=== PATIENT | female | born 1955 | race Caucasian/White ===

== ENCOUNTER 2023-08-20 11:08 | Outpatient (AMB) | payer OTHER, SELFPAY ==
[2023-08-20 11:15] VITALS: BP 165/74; PULSE 54; RESP 16; O2SAT 99; BMI 24.5
--- NOTE | 2023-08-20 11:15 | A.OFFPC_ITS ---
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 Patient reports she has not had a provider in over 1 year in [place], [place]. Patient reports she has seen an opthomologist recently and she was informed topiramate was contributing to her cataracts. Patient reports she was informed to switch to diclofenac. Allergies No Known Allergies Allergy (Verified 08/20/23 12:41) Medication List - Last Reconciled 08/20/23 by Keyona Knowles, CARDIOTHORACIC ANESTHESIA TECHNICIAN- albuterol sulfate 90 mcg/actuation inhalation budesonide-formoterol 160-4.5 mcg/actuation (Symbicort) inhalation diclofenac sodium 1% 2 grams topical QID PRN duloxetine 60 mg PO DAILY ipratropium-albuterol 0.5 mg-3 mg(2.5 mg base)/3 mL mL inhalation lisinopril 10 mg PO DAILY metoprolol succinate ER 25 mg PO DAILY montelukast 10 mg PO DAILY naproxen 500 mg PO BID topiramate 100 mg PO BID Tobacco use date assessed: 08/20/23 Fall risk assessment: No Falls in past year Last assessed Fall Risk: 08/20/23 Dental Screening Dental Screen Date: 08/20/23 Did you have a dental visit in the last 12 months?: No Did you have a dental problem in the last 6 months where you did not have access to dental care?: No Was dental information given to patient?: Yes HPI HPI Comments History of Present Illness Details 68 y/o F with HTN, Cataracts, chronic ba ck pain, ISSAC, current smoker, COPD Health Maintenance: Colon - declined. States she has Cologaurd at home DEXA - declined Pap - declined Mammo - declined Eye exam 08/17/2023 Dr. Chavez Specialists: Optho Here today for CPE No medical records Was taking Topamax for chronic pain. Saw Optho yesterday who advised her to DC d/t cataracts. Wants pain meds. Eye exam 08/17/2023 Dr. Chavez [facility] Medical History (Updated 08/20/23 @ 12:56 by Keyona Knowles, CARDIOTHORACIC ANESTHESIA TECHNICIAN-) ISSAC (generalized anxiety disorder) HTN (hypertension) Chronic back pain Renal stones Social History (Updated 08/20/23 @ 12:06 by Jacki Christina [facility]) Household Members: Other Household Members Other:: Roommate x1 Housing: Other Housing Other:: Roommate Alcohol intake: former Patient Tobacco Use Status: Current everyday Tobacco user Tobacco use type: Cigarette Cigarettes Per Day: 6 Years Smoked: 40 e-Cigarette/Vaping Use: Currently Using Substance Use Type: Marijuana service: No Current occupational status: disabled Current occupational exposures/hazards: No Sexual orientation: Straight/Heterosexual Gender identity: Female Cognitive needs: No Hearing needs: No Vision needs: Yes Questionnaire PHQ-9 Over the last 2 weeks, how often have you been bothered by any of the following problems? 1. Little interest or pleasure in doing things: more than half the days 2. Feeling down, depressed, or hopeless: more than half the days 3. Trouble falling or staying asleep, or sleeping too much: more than half the days 4. Feeling tired or having little energy: more than half the days 5. Poor appetite or overeating: not at all 6. Feeling bad about yourself - or that you are a failure or have let yourself or your family down: not at all 7. Trouble concentrating on things, such as reading the newspaper or watching television: not at all 8. Moving or speaking so slowly that other people could have noticed. Or the opposite - being so fidgety or restless that you have been moving around a lot more than usual: not at all 9. Thoughts that you would be better off or of hurting yourself in some way: not at all Total score: 8 Depression Screening Interpretation: Negative Depression Screening Done: Yes 47255 - PHQ-9 Billing: Yes Source: Developed by Drs. Nick Warren, Deepika Umana, David Bui and colleagues, with an educational paulette from [employer]. Thrive Questionnaire Date Thrive assessed: 08/20/23 I am a: Patient What is your living situation today?: I have a steady place to live Within the past 12 months, did the food you bought not last and you didn't have the money to get more?: Never true Within the past 12 months, did you worry whether your food would run out before you got money to buy more?: Never true Do you have trouble paying for medicines?: No Do you have trouble getting transportation to medical appointments?: No Do you have trouble paying your heating and electricity bill?: No Do you have trouble taking care of your child, family member or friend?: No Do you have trouble with day-to-day activities such as bathing, preparing meals, shopping, managing finances, etc.?: No Are you currently unemployed and looking for a job?: No Are you interested in more education?: No Please select the resources that you would like help with: None Currently or been in a relationship where the following occur: no concerns reported THRIVE Score: 0 AUDIT C Alcohol Use Questionnaire (AUDIT-C) 1. How often do you have a drink containing alcohol?: Never 3. How often do you have six or more drinks on one occasion?: Never Total Score: 0 Score Reviewed/Action Taken: Yes ISSAC-7 AMB Questionnaire ISSAC-7 Date ISSAC - 7 assessed: 08/20/23 Feeling nervous, anxious, or on edge: 3 = Nearly every day Not being able to stop or control worryin = Nearly every day Worrying too much about different things: 3 = Nearly every day Trouble relaxin = Nearly every day Being so restless that it is hard to sit still: 3 = Nearly every day Becoming easily annoyed or irritable: 3 = Nearly every day Feeling afraid as if something awful might happen: 3 = Nearly every day Total ISSAC-7 score (0-4 normal; 5-9 mild; 10-14 moderate; 15-21 severe): 21 Source: Developed by Drs. Nick Warren, Deepika Umana, David Bui and colleagues, with an educational paulette from [employer]. ISSAC-7 Assessment Billing ISSAC-7 Assessment Tool: ISSAC-7 Assessment 22305 Review of Systems Const Details: Constitutional: Denies fever. Skin: Denies rash. Eye: Denies eye pain. ENMT: Denies sore throat and nasal congestion. Respiratory: Denies shortness of breath and cough. Gastrointestinal: Denies nausea, vomiting or abdominal pain. Cardiovascular: Denies chest pain and syncope. Genitourinary: Denies dysuria. Musculoskeletal: Chronic back pain and multiple joint pain Neurologic: Denies headaches, confusion, and weakness. Psychiatric: Denies suicidal thoughts and substance abuse. Allergy/ Immunologic: Denies impaired immunity. Physical exam (Primary Care) Vital Signs: Last Vital Signs Pulse 54 08/20/23 11:15 Resp 16 08/20/23 11:15 BP 165/74 H 08/20/23 11:15 Pulse Ox 99 08/20/23 11:15 Oxygen Delivery Method Room Air 08/20/23 11:15 Care Plan Goal for BP management: take meds as directed Next steps: RTO in 2 weeks to recheck BMI result Body Mass Index 24.5 Tobacco/Smoking Status: Tobacco use Status Tobacco use date assessed 08/20/23 08/20/23 11:56 Patient Tobacco Use Status Current everyday Tobacco 08/20/23 12:06 Tobacco use type Cigarette 08/20/23 11:56 e-Cigarette/Vaping Use Currently Using 08/20/23 12:06 Are you ready to quit: No Tobacco cessation counseling provided: Yes Items discussed: Other Relapse Prevention: discussed the importance of a supportive environment, discussed extending NRT, discussed negative mood or depression after quitting, weight gain after smoking is common and discussed dietary, exercise and/or lifestyle changes Number of minutes spent counselin CPT code: 57916 - 4-10 Minutes PHQ-9: PHQ-9 Score PHQ-9: Total score 8 08/20/23 12:47 Depression Screening Interpretation: Negative Thrive Assessment: Date of Thrive Assessment Date Thrive assessed 08/20/23 08/20/23 12:09 Currently or been in a relationship where the following occur: no concerns reported Advance Care Planning discussion: Exists, not on file Date of discussion: 08/20/23 Who was present: self Forms completed: Health Care Proxy and MOLST Time spent: 1-15 minutes, not on file Actual minutes spent: 4 Const Other: General: Well developed, well nourished, in no acute distress. Appears older than stated age Head: Normocephalic, atraumatic. Eyes: Pupils are equal, round and reactive to light and accommodation. Conjunctivae are clear. Vision grossly normal. Ears: TMs clear AU, EACS WNL Nose: Patent, without discharge. Mouth: There are no ulcers or lesions noted. No inflammation, no post nasal drip, no plaques nor exudates. Neck: Supple, no adenopathy or thyromegaly. Lungs: Clear to auscultation bilaterally. Diminished throughout. Heart: Regular rate and rhythm. No murmurs, click, rubs or gallops are noted. Abdomen: Bowel sounds present in all quadrants. The abdomen is soft, nontender, with no masses or organomegaly noted. No hernias are noted. Musculoskeletal: Joints are nontender, without swelling, redness, or effusions. Range of motion is observed to be normal. Pulses: Peripheral pulses are equal and palpable bilaterally. Extremities: No clubbing, cyanosis nor edema is noted. Neurologic: Gait and station normal. Cranial Nerves 2-12 intact. Motor strength grossly symmetrical and intact. No sensory loss. Balance normal. Skin: No rashes, ulcers, or lesions noted. Turgor is good. Skin color is good. Hair and nails are without abnormalities. Psych: Crying on and off during the exam, anxious, tangential speech, very difficult to redirect albeit pleasant Assessment and Plan Assessment & Plan (1) Encounter for general adult medical examination without abnormal findings: Comment: declines pap, mammo, colon and lung ca screening states she has cologaurd at home and will return Check labs today, nonfasting. Code(s): Z00.00 - Encounter for general adult medical examination without abnormal findings (2) Chronic back pain: Comment: refer to [facility] for further eval and tx Cont Cymbalta and NSAIDS she asked for RX for diclofenac topical as she has used this in the past with + effect, this was sent in. Code(s): M54.9 - Dorsalgia, unspecified; G89.29 - Other chronic pain Qualifiers: Back pain laterality: right Back pain location: low back pain Sciatica laterality: sciatica of right side Sciatica presence: with sciatica Qualified Code(s): M54.41 - Lumbago with sciatica, right side; G89.29 - Other chronic pain (3) HTN (hypertension): Comment: on lisinopril 10mg QD and Metoprolol 25 mg QD BP not at goal today Bring back to office in 2 weeks to recheck; she has been w/o her meds prior to today. Code(s): I10 - Essential (primary) hypertension Qualifiers: Hypertension type: primary hypertension Qualified Code(s): I10 - Essential (primary) hypertension (4) ISSAC (generalized anxiety disorder): Comment: referred to counseling on cymbalta 60mg QD, continue. Wonders if she can have more meds for her anxiety Will discuss at next visit after lab review Code(s): F41.1 - Generalized anxiety disorder (5) COPD (chronic obstructive pulmonary disease): Comment: controlled on Symbicort and MARIBELL Continue; declines referral to Pulm or Lung Cancer screening Smoking cessation advised Code(s): J44.9 - Chronic obstructive pulmonary disease, unspecified Qualifiers: COPD type: chronic bronchitis Chronic bronchitis type: simple Qualified Code(s): J41.0 - Simple chronic bronchitis (6) Current tobacco use: Comment: smoking cessation given Code(s): Z72.0 - Tobacco use (7) MDD (major depressive disorder), recurrent episode: Comment: on cymbalta referred to counselor Code(s): F33.9 - Major depressive disorder, recurrent, unspecified Qualifiers: Major depression episode severity: moderate Qualified Code(s): F33.1 - Major depressive disorder, recurrent, moderate Orders: Orders Hemoglobin A1c Today I10 - Essential (primary) hypertension LDL Cholesterol Direct Today I10 - Essential (primary) hypertension TSH reflex Free T4 Today I10 - Essential (primary) hypertension Vitamin D 1,25 dihydroxy Today I10 - Essential (primary) hypertension Folate Today I10 - Essential (primary) hypertension IRON PROFILE Today I10 - Essential (primary) hypertension Comprehensive Met. Panel Today I10 - Essential (primary) hypertension Microalbumin, Random (w Creat) Today I10 - Essential (primary) hypertension Vitamin B12 Today I10 - Essential (primary) hypertension Complete Blood Count no Diff Today I10 - Essential (primary) hypertension Referrals Counseling Referral F41.1 - Generalized anxiety disorder Pain Management Referral G89.29 - Other chronic pain, M54.9 - Dorsalgia, unsp ecified Medications: New diclofenac sodium 1% apply to joints as needed. 2 grams topical QID PRN 100 grams 3RF pain budesonide-formoterol 160-4.5 mcg/actuation (Symbicort) 2 inhalations inhalation BID 10.2 grams 6RF albuterol sulfate 90 mcg/actuation 2 puffs inhalation Q4H PRN 8.5 grams 1RF shortness of breath or wheezing duloxetine 60 mg PO DAILY 90 caps 1RF ipratropium-albuterol 0.5 mg-3 mg(2.5 mg base)/3 mL 3 mL inhalation Q6H PRN metoprolol succinate ER 25 mg PO DAILY 90 tabs 0RF lisinopril 10 mg PO DAILY 90 tabs 0RF montelukast 10 mg PO DAILY 90 tabs 2RF naproxen 500 mg PO BID PRN 30 tabs 3RF pain Patient Instructions: RTO IN 2 WEEKS TO DISCUSS LAB RESULTS, F/U HTN AND DISCUSS ADDING MEDS TO HELP W/ ANXIETY Review Patient declined Mammogram: 08/20/23 Declined Pap Smear: 08/20/23 Patient declined Colonoscopy: 08/20/23 Patient declined Pneumococcal Vaccine: 08/20/23 Declined TDap/Td: 08/20/23 Coding Level of Care Code New Pt Prev Care >65yr (58723) Diagnoses Encounter for general adult medical examination without abnormal findings Z00.00 Chronic right-sided low back pain with right-sided sciatica M54.41; G89.29 Back pain laterality: right Back pain location: low back pain Sciatica laterality: sciatica of right side Sciatica presence: with sciatica Primary hypertension I10 Hypertension type: primary hypertension ISSAC (generalized anxiety disorder) F41.1 Simple chronic bronchitis J41.0 COPD type: chronic bronchitis Chronic bronchitis type: simple Current tobacco use Z72.0 Moderate episode of recurrent major depressive disorder F33.1 Major depression episode severity: moderate Additional Codes ISSAC-7 Assessment Billing - ISSAC-7 Assessment Tool: ISSAC-7 Assessment 40824 ([id number]) Vital Signs *Quality* - Advance Care Planning discussion: Exists, not on file ([id number]) Vital Signs *Quality* - Time spent: 1-15 minutes, not on file ([id number]) Vital Signs *Quality* - CPT code: 03257 - 4-10 Minutes ([id number])
== END 2023-08-20 12:13 | disposition home or self-care (01) ==
LOC: HO.HMGFM 11:08
PROVIDERS: Visit Provider Nurse Practitioner Family
DX: Z00.00 Encounter for general adult medical examination without abnormal findings (principal); J41.0 Simple chronic bronchitis; F33.1 Major depressive disorder, recurrent, moderate; M54.41 Lumbago with sciatica, right side; G89.29 Other chronic pain; I10 Essential (primary) hypertension; F41.1 Generalized anxiety disorder; Z72.0 Tobacco use
CPT/HCPCS: 1124F; 99387

== ENCOUNTER 2023-08-20 12:24 | Outpatient (REF) | payer OTHER, SELFPAY ==
[2023-08-20 14:56] LABS: Hematocrit 39.7 % (37.0-47.0); Hemoglobin 13.4 g/dl (12.0-16.0); Mean Corpuscular HGB Conc 33.8 g/dl (31.0-35.0); Mean Corpuscular Hemoglobin 32.9 pg (27.0-33.0); Mean Corpuscular Volume 97.5 fL (80.0-98.0); Platelet Count 244 X10*3/uL (160-400); Red Blood Count 4.07 X10*6/uL (4.20-5.50); Red Cell Distribution Width 12.9 % (11.0-16.0); White Blood Count 7.4 X10*3/uL (4.8-10.8)
[2023-08-20 15:03] LABS: Estimated Average Glucose 108 mg/dL; Hemoglobin A1c % 5.4 % (<6.0)
[2023-08-20 15:14] LABS: Creatinine Urine 43.48 mg/dL; Microalbum/Creatinine Ratio Ur 34.4 ug/mg cr (<30)
[2023-08-20 15:23] LABS: Alanine Aminotransferase 25 U/L (0-31); Albumin Level 4.3 g/dL (3.5-5.0); Alkaline Phosphatase 61 U/L (39-117); Anion Gap 11 (12-20); Aspartate Amino Transferase 28 U/L (5-31); Bilirubin Total 0.6 mg/dL (0.0-1.0); Blood Urea Nitrogen 30 mg/dL (9-16); Calcium 9.4 mg/dL (8.4-10.2); Carbon Dioxide 23 mmol/L (22-29); Chloride 110 mmol/L (96-108); Estimated Glomerular Filt Rate 33; Glucose Random 87 mg/dL (60-115); Iron 63 mcg/dL (30-160); Percent Iron Saturation 32 % (15-50); Potassium 3.7 mmol/L (3.3-5.1); Sodium 140 mmol/L (135-145); Total Iron Binding Capacity 199 mcg/dL (228-428); Total Protein 6.9 g/dL (6.5-8.0); Unsaturated Iron Binding 136 ug/dL
[2023-08-20 15:40] LABS: TSH reflex Free T4 1.09 uIU/mL (0.32-4.0)
[2023-08-20 15:52] LABS: Folate 12.2 ng/mL (> or = 4.0); Vitamin B12 424 pg/mL (200-900)
[2023-08-24 16:13] LABS: LDL Cholesterol Direct 115 mg/dL (<100); VITAMIN D (1,25 OH) D3 26 pg/mL; Vit D (1,25-Dihydroxy) Total 26 pg/mL (18-72); Vitamin D (1,25 OH) D2 <8 pg/mL
== END 2023-08-20 12:25 | disposition home or self-care (01) ==
LOC: HO.WFDLDS 12:24
PROVIDERS: Visit Provider Nurse Practitioner Family
DX: I10 Essential (primary) hypertension (principal)
CPT/HCPCS: 36415; 80053; 82043; 82570; 82607; 82652; 82746; 83036; 83540; 83721; 84443; 85027

== ENCOUNTER 2023-09-07 12:55 | Outpatient (AMB) | payer OTHER, SELFPAY ==
[2023-09-07 12:57] VITALS: BP 126/60; PULSE 62; RESP 14; TEMP 36.4; O2SAT 99; BMI 24.7
--- NOTE | 2023-09-07 12:57 | MHC.PC.OV ---
Vital Signs 09/07/23 12:57 Height 4 ft 9.75 in Weight 117 lb 2 oz BMI 24.7 BP 126/60 Blood Pressure Location Rt brachial Position Sitting Respiration 14 Pulse 62 Pulse Source Pulse Oximeter Temp 97.5 F Temp Source Temporal Artery Scan Pulse Oximetry (%) 99 Oxygen Delivery Method Room Air Intake Visit Reasons: fu labs and HTN Intake Note: Patient would like referrals for her lower extremities. Marketing Content Specialist Required: No Accompanied by: Self / Same As Patient Allergies No Known Allergies Allergy (Verified 09/07/23 13:24) Medication List - Last Reconciled 09/07/23 by Keyona Knowles, GOLD CUTTER- albuterol sulfate 90 mcg/actuation 2 puffs inhalation Q4H PRN budesonide-formoterol 160-4.5 mcg/actuation (Symbicort) 2 inhalations inhalation BID diclofenac sodium 1% 2 grams topical QID PRN duloxetine 60 mg PO DAILY ipratropium-albuterol 0.5 mg-3 mg(2.5 mg base)/3 mL 3 mL inhalation Q6H PRN lisinopril 10 mg PO DAILY metoprolol succinate ER 25 mg PO DAILY montelukast 10 mg PO DAILY naproxen 500 mg PO BID PRN Tobacco use date assessed: 08/20/23 Fall risk assessment: No Falls in past year Last assessed Fall Risk: 09/07/23 Dental Screening Dental Screen Date: 08/20/23 HPI HPI Comments History of Present Illness Details 68 y/o F with HTN, Cataracts, chronic back pain, ISSAC, current smoker, COPD, Ckd 3A Here today to f/u on labs and HTN Labs from August 20 2023 show a normal CBC, BUN 30 creatinine 1.56 EGFR 33 hemoglobin A1c normal at 5.4% low iron binding capacity 199 otherwise normal iron profile, normal LFTs, mild elevation in the urine microalbumin creatinine ratio of 34.4, normal TSH, normal b12, folate , LDL 115, Vit D WNL Unsure of what meds she is on and why. Saying several different medication names which was very confusing for me to decipher. she doesnt even remember who i am. Asking questions over and over. When I asked her to recall info from todays visit she was not able to. She denies taking any substances including etoh. She asked for diclofenac oral. Advised this is not recommended given her CKD3. states oral is the only thing that works then says she loves the topical only thing that works . Same w naproxen, it makes her feel confused but then states she is taking it on recovery days after grocery shopping helps me when i flat out mentions not wanting to take topamax. Reminded her she was not on this medication. It was discontinued. Then gives me a drug hand out for losartan and asked me to give this to her because she needs med for her high BP. Does not think CKD is correct as she was in ICU 1 year ago and told her kidneys were fine. BP stable today. Wishes for ortho referral for a cane and also wants a back brace. [facility] Medical History ISSAC (generalized anxiety disorder) HTN (hypertension) Chronic back pain Renal stones Social History Household Members: Other Household Members Other:: Roommate x1 Housing: Other Housing Other:: Roommate 75 years or older and lives alone: No Alcohol intake: former Patient Tobacco Use Status: Current everyday Tobacco user Tobacco use type: Cigarette Cigarettes Per Day: 6 Years Smoked: 40 e-Cigarette/Vaping Use: Currently Using Substance Use Type: Marijuana service: No Current occupational status: disabled Current occupational exposures/hazards: No Sexual orientation: Straight/Heterosexual Gender identity: Female Cognitive needs: No Hearing needs: No Vision needs: Yes Questionnaire Thrive Questionnaire Date Thrive assessed: 08/20/23 ISSAC-7 AMB Questionnaire ISSAC-7 Date ISSAC - 7 assessed: 08/20/23 Source: Developed by Drs. Nick Warren, Deepika Umana, David Bui and colleagues, with an educational paulette from [employer]. Physical exam (Primary Care) Vital Signs: Last Vital Signs Temp 97.5 F 09/07/23 12:57 Pulse 62 09/07/23 12:57 Resp 14 09/07/23 12:57 BP 126/60 09/07/23 12:57 Pulse Ox 99 09/07/23 12:57 Oxygen Delivery Method Room Air 09/07/23 12:57 BMI result Body Mass Index 24.7 Tobacco/Smoking Status: Tobacco use Status Tobacco use date assessed 08/20/23 09/07/23 13:10 Patient Tobacco Use Status Current everyday Tobacco 09/07/23 13:10 Tobacco use type Cigarette 09/07/23 13:10 e-Cigarette/Vaping Use Currently Using 09/07/23 13:10 Thrive Assessment: Date of Thrive Assessment Date Thrive assessed 08/20/23 09/07/23 13:10 Const Other: awake alert, eyes half closed, speech slurred at times, as if under the influence - see HPI for add'l details no neuro deficits to suggest CVA or the like RRR LS dim throughout Assessment and Plan Assessment & Plan (1) HTN (hypertension): Comment: on lisinopril 10mg QD and Metoprolol 25 mg QD BP at goal today, continue. Code(s): I10 - Essential (primary) hypertension Qualifiers: Hypertension type: primary hypertension Qualified Code(s): I10 - Essential (primary) hypertension (2) CKD (chronic kidney disease) stage 3, GFR 30-59 ml/min: Comment: 08/20/23 BUN 30 creatinine 1.56 EGFR 33, mild elevation in the urine microalbumin creatinine ratio of 34.4 on ACEI Avoid nephrotoxic agents like NSAIDs. She reports using Naproxen sparingly. NO rX for diclofenac oral. Advised of this several times during visit. Ok to use topical. Code(s): N18.30 - Chronic kidney disease, stage 3 unspecified Qualifiers: Chronic kidney disease stage 3 subtype: stage 3b (GFR 30-44) Qualified Code(s): N18.32 - Chronic kidney disease, stage 3b Plan referred to ortho per her request This note is constructed using voice recognition software. While every effort has been made to ensure accuracy in elementary school director, still errors may have been included Sometimes, these errors may affect the content or meaning of the given sentence . Total time spent caring for the patient today was 45 minutes. This includes time spent before the visit reviewing the chart, time spent during the visit, and time spent after the visit on documentation Orders: Orders Comprehensive Met. Panel 02/29/24 N18.32 - Chronic kidney disease, stage 3b Referrals Orthopedics Referral M79.604 - Pain in right leg Patient Instructions: RTO IN 6 MONTHS FOR FU HTN, REPEAT LABS 1 WEEK BEFORE. SOONER NEEDED. Coding Level of Care Code Est Pt Level 5 (51928) Diagnoses Primary hypertension I10 Hypertension type: primary hypertension Stage 3b chronic kidney disease N18.32 Chronic kidney disease stage 3 subtype: stage 3b (GFR 30-44)
== END 2023-09-07 13:47 | disposition home or self-care (01) ==
PROVIDERS: Visit Provider Nurse Practitioner Family
DX: I12.9 Hypertensive chronic kidney disease with stage 1 through stage 4 chronic kidney disease, or unspecified chronic kidney disease (principal); N18.32 Chronic kidney disease, stage 3b
CPT/HCPCS: 99215

== ENCOUNTER 2023-09-10 13:57 | Outpatient (AMB) | payer MEDICARE, MEDICAID, SELFPAY ==
--- NOTE | 2023-09-10 13:58 | MHC.OFFVIS ---
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 Accompanied by: Self / Same As Patient Allergies No Known Allergies Allergy (Verified 09/10/23 14:03) HPI HPI DORSALGIA: Details: Patient is a 68 years old female with history of cervical and lumbar degenerative disc and joint disease, scoliosis, OA, neuropathy, fibromyalgia, bulging discs, failed laminectomy and fusion surgery, chronic pain syndrome, fatigue, lumbar and cervical radiculopathy, polyarthralgia, h/o left hip and left knee replacements, CKD stage 3, presents today for initial evaluation for chronic pain syndrome and multiple pain generators and to discuss medical pain management. Patient has moved from [facility] a year ago to stay closer to her family and grandchildren. She reports extensive multilevel lumbar laminectomies in [place] with minimal and temporary pain relief. She also underwent lumbar SCS trial successfully per patient but was not allowed to proceed with implant due to need for additional back surgery. Patient reports back pain 7-8/10, leg pain 7/10, and neck and shoulder pain 7/10. Pain affects her daily activities, mobility, sleep, mood and quality of life. Denies any fever, weight loss, abdominal or groin pain, bladder or bowel dysfunction or saddle anesthesia. Reports balance issues this prolonged walking or standing due to pain. She was told in [place] she will need right hip replacement surgery. Patient reports she used to be on pain contract in the past and has been taking Oxycodone 30 mg QID, Fentanyl patch 50 mcg every 48 hours, Belbuca 300 mcg every 48 hours and before she left [facility], she states she was titrated down to Oxycodone 20 mg and no Fentanyl. Patient also brought in her medication bottle of cyclobenzaprine which in 2021 which she continues to take and does not want to discard. Patient requests opioid contract paperwork to restart her on opioid medication and Topomax. When asked about CKD, patient declines diagnosis and states she was told by her PCP she has stage 3 liver disease and has liver cysts on previous imaging. Patient also reports taking Celebrex daily and insists that she does not have kidney disease. Upon recent lab review with patient, noting to her recent BUN=30, Cr=1.56, GFR=33 on 08/20/23, patient states her all labs in [place] were normal and states our labs are not correct. I recommend patient to see Nephrology for further evaluation. Patient was also informed that I do not offer opioid prescribing and encourage her to stop Celebrex and avoid other NSAIDs. She also reports intermittent use of Naproxen. Patient reports strong family history for lumbar DDD, including her mother, brother and 3 children. Her son and brother underwent extensive back surgeries. Patient smokes 1/4 PPD, consumes instant coffee twice daily, uses marijuana for pain in am and pm. Denies alcohol or illicit drug use. Location: Lower back pain due DDD, right hip and groin pain, legs, neck, shoulders Duration: Chronic pain for years, h/o fell down basement steps at the age 29 Characteristics of symptom or complaint: Tiring, sharp, burning, shooting, aching Aggravating or associated factors: Movements, weather changes, cold applications, walking, standing Relieving factors: Heat, topical medication, opioids, Celebrex, naproxen, duloxetine Treatment: PT, multiple laminectomies/fusion (2007), SCS trial, injections, TENS unit [facility] Medical History (Updated 09/10/23 @ 21:02 by ASHTYN Jaquez) Polyarthralgia Lumbar degenerative disc disease ISSAC (generalized anxiety disorder) HTN (hypertension) Chronic back pain Renal stones Social History Household Members: Other Household Members Other:: Roommate x1 Housing: Other Housing Other:: Roommate 75 years or older and lives alone: No Alcohol intake: former Patient Tobacco Use Status: Current everyday Tobacco user Tobacco use type: Cigarette Cigarettes Per Day: 6 Years Smoked: 40 e-Cigarette/Vaping Use: Currently Using Substance Use Type: Marijuana service: No Current occupational status: disabled Current occupational exposures/hazards: No Sexual orientation: Straight/Heterosexual Gender identity: Female Cognitive needs: No Hearing needs: No Vision needs: Yes Review of Systems Const All systems reviewed & are unremarkable except as noted in HPI and below Reports as per HPI, Denies body aches, Denies chills, Reports difficulty sleeping, Reports fatigue, Denies fever(s), Denies frequent falls, Denies malaise and Denies night sweats ENT Denies vertigo, Denies dizziness and Reports neck pain Musc Reports as per HPI, Reports back pain, Denies myalgias, Reports arthralgias (right knee, shoulders), Reports neck pain, Reports numbness, Reports radiating pain into limb, Reports stiffness and Reports tingling Neuro Reports as per HPI, Denies burning sensations, Denies vertigo, Denies dizziness, Denies frequent falls, Denies memory loss, Reports numbness, Denies seizure-like activity and Reports tingling Psych Denies memory loss Endo Reports fatigue Physical Exam Vital Signs: Last Vital Signs Pulse 67 09/10/23 14:08 BP 140/82 H 09/10/23 14:08 Pulse Ox 97 09/10/23 14:08 Oxygen Delivery Method Room Air 09/10/23 14:08 BMI result Body Mass Index 24.9 General: Appears afebrile. No acute distress. Alert and oriented to person and time, re-oriented to place. Forgetful. Mood and affect appropriate. Follows and participates in conversation appropriately. Respiratory effort is unlabored. No cough. Able to transition from sit to stand unassisted. Mild antalgic gait with slight limping. No assistive devices. Ambulates with bilaterally normal heel strike and toe off, reports unsteadiness on right due to hip and leg pain. Back/Spine/Pelvis Other: TTP over paraspinals from L3-S1. Pain in all ranges of motion, lumbar extension and facet loading bilaterally reproduces moderate pain. Moderate pain with lumbar flexion. Strength 5/5 left and 4/5 right hip flexion bilaterally. Mild tenderness to bilateral GTB. Diminished DTRs bilaterally, no clonus. Right KACY test reproduces right lateral hip, right groin and right lower back pain. KACY not tested on the left due to h/o hip and knee replacements. +Stinchfield, +Pelvic compression positive on the right. +Moderate TTP in projection of right SIJ. Valsalva maneuver is negative. Cervical Spine: cervical muscular tenderness, pain with cervical ROM and No Cervical spine tenderness Thoracic/Lumbar Spine: thoracic and lumbar spine normal to inspection, Thoracic/lumbar spine scar(s), Lasegue's sign negative, straight leg raise negative bilaterally, pain with thoraco-lumbar ROM, paraspinal muscle tenderness, thoraco-lumbar ROM limited, Thoracic/lumbar scoliosis, thoracic spinal tenderness (lower thoracic, right>left) and lumbar spinal tenderness (L3-S1) Pelvis: buttock tenderness bilaterally Sacroiliac joints: bilaterally (right>left) tender to palpation Extrem General: Yes capillary refill normal, Yes no clubbing, cyanosis or edema and Yes no calf tenderness Results Reviewed Results Reviewed: Assessment & Plan Assessment & Plan (1) Low back pain: Code(s): M54.50 - Low back pain, unspecified Category: Medical (2) Lumbar post-laminectomy syndrome: Code(s): M96.1 - Postlaminectomy syndrome, not elsewhere classified Category: Medical (3) Right hip pain: Code(s): M25.551 - Pain in right hip Category: Medical (4) CKD (chronic kidney disease) stage 3, GFR 30-59 ml/min: Comment: 08/20/23 BUN 30 creatinine 1.56 EGFR 33, mild elevation in the urine microalbumin creatinine ratio of 34.4 on ACEI Avoid nephrotoxic agents like NSAIDs. She reports using Naproxen sparingly. NO rX for diclofenac oral. Advised of this several times during visit. Ok to use topical. Code(s): N18.30 - Chronic kidney disease, stage 3 unspecified Category: Medical Qualifiers: Chronic kidney disease stage 3 subtype: stage 3b (GFR 30-44) Qualified Code(s): N18.32 - Chronic kidney disease, stage 3b (5) Chronic pain syndrome: Code(s): G89.4 - Chronic pain syndrome Category: Medical (6) Lumbar degenerative disc disease: Code(s): M51.36 - Other intervertebral disc degeneration, lumbar region Category: Medical (7) Polyarthralgia: Code(s): M25.50 - Pain in unspecified joint Category: Medical Plan Lumbar and thoracic spine imaging to assess degree of degenerative changes, any subluxation, listhesis, compression fractures or pars defects. We will also obtain right hip xray to assess arthritis in this area. Patient reports advanced right hip OA. Discussed interventional treatments for multiple pain generators, focusing on her mid-low back and right hip pain today. Patient reports she needs order for lumbar MRI. However, SLR testing was negative and she has moderate right SIJ and severe right hip pain. We will evaluate xray results prior to any further testing. Patient is hesitant towards injections or procedures and requests to sign opioid contract papers and script for Topamax. I have informed patient that I will not prescribe her opioids or Topamax. Patient has been often forgetful during today's visit. I recommend patient to see Nephrology provider for CKD Stage 3 and urged patient to stop taking Celebrex due to its nephrotoxic effects. Discussed custodial complications for post menopausal female and CKD, including kidney failure and progressive kidney damage. All questions and concerns have been answered and patient agreed with the plan. Follow-up for x-ray results and sooner as needed. Orders: Orders XR lumbar spine 4V min Today M54.50 - Low back pain, unspecified, M96.1 - Postlaminectomy syndrome, not elsewhere classified XR thoracic spine 3V Today M96.1 - Postlaminectomy syndrome, not elsewhere classified XR hip RT w PEL1V Today M25.551 - Pain in right hip Referrals Nephrology Referral N18.32 - Chronic kidney disease, stage 3b Coding Level of Care Code New Pt Level 4 (29026) Diagnoses Low back pain M54.50 Lumbar post-laminectomy syndrome M96.1 Right hip pain M25.551 Stage 3b chronic kidney disease N18.32 Chronic kidney disease stage 3 subtype: stage 3b (GFR 30-44) Chronic pain syndrome G89.4 Lumbar degenerative disc disease M51.36 Polyarthralgia M25.50
[2023-09-10 14:08] VITALS: BP 140/82; PULSE 67; O2SAT 97; BMI 24.9
== END 2023-09-10 14:36 | disposition home or self-care (01) ==
PROVIDERS: PCP Nurse Practitioner Family; Visit Provider Nurse Practitioner Family
DX: M54.50 Low back pain, unspecified (principal); M96.1 Postlaminectomy syndrome, not elsewhere classified; M25.551 Pain in right hip; N18.32 Chronic kidney disease, stage 3b; G89.4 Chronic pain syndrome; M51.36 Other intervertebral disc degeneration, lumbar region; M25.50 Pain in unspecified joint
CPT/HCPCS: 99204

== ENCOUNTER → 2023-09-10 13:57 | Outpatient (BNVA) | payer MEDICARE, MEDICAID, SELFPAY | PROVIDERS: PCP Nurse Practitioner Family; Visit Provider Nurse Practitioner Family | DX: M54.50 Low back pain, unspecified (principal); M96.1 Postlaminectomy syndrome, not elsewhere classified; M25.551 Pain in right hip; M51.36 Other intervertebral disc degeneration, lumbar region; M25.50 Pain in unspecified joint; N18.32 Chronic kidney disease, stage 3b; G89.4 Chronic pain syndrome | CPT/HCPCS: 99202 ==

== ENCOUNTER 2023-09-18 13:30 | Outpatient (AMB) | payer MEDICARE, MEDICAID, SELFPAY ==
[2023-09-18 13:37] VITALS: BP 130/60; PULSE 71; O2SAT 97; BMI 24.2
--- NOTE | 2023-09-18 13:37 | HO.NEPHOV_ITS ---
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 Serum creatinine was 1.56. She has recently moved from [place]. In 2020 she had an MRI which showed hydronephrosis on the right side. Apparently this has not been addressed and she has not aware of this finding. MRI showed advanced multilevel lumbar spondylosis. She is significant pain and he has been taking NSAIDs on and off. Prior to this she was on narcotics which she has not taking currently. She has a history of hypertension. She has been on lisinopril 10 mg a day. She is history of smoking, currently smokes less than 10 a day. [facility] Medical History (Updated 09/18/23 @ 14:59 by Wilder Chaney MD) Polyarthralgia Lumbar degenerative disc disease ISSAC (generalized anxiety disorder) HTN (hypertension) Chronic back pain Renal stones Social History Household Members: Other Household Members Other:: Roommate x1 Housing: Other Housing Other:: Roommate 75 years or older and lives alone: No Alcohol intake: former Patient Tobacco Use Status: Current everyday Tobacco user Tobacco use type: Cigarette Cigarettes Per Day: 6 Years Smoked: 40 e-Cigarette/Vaping Use: Currently Using Substance Use Type: Marijuana service: No Current occupational status: disabled Current occupational exposures/hazards: No Sexual orientation: Straight/Heterosexual Gender identity: Female Cognitive needs: No Hearing needs: No Vision needs: Yes Physical Exam Vital Signs: Last Vital Signs Pulse 71 09/18/23 13:37 BP 130/60 09/18/23 13:37 Pulse Ox 97 09/18/23 13:37 Oxygen Delivery Method Room Air 09/18/23 13:37 BMI result Body Mass Index 24.2 Const General: comfortable Nutritional Appearance: well nourished Orientation/consciousness: patient oriented x3 HEENT Head: No normal to inspection Mouth: moist mucous membranes Neck Neck: Yes supple and Yes no JVD Resp Auscultation: clear to auscultation bilaterally, no rales and rub present Cardio Jugular venous distension: no JVD Palpation: no palpable S3 and no palpable S4 Heart sounds: no rubs GI Palpation (GI): Soft to palpation and nontender Percussion: No Fluid wave present General: Yes no CVA tenderness Back/Spine/Pelvis Back: no CVA tenderness Skin General skin exam: no rashes or lesions noted Neuro General: patient oriented x3 Extrem General: Yes no pedal edema and No clubbing Results Reviewed Nephrology Results: Hgb 13.4 g/dl (12.0-16.0) 08/20/23 WBC 7.4 X10*3/uL (4.8-10.8) 08/20/23 Plt Count 244 X10*3/uL (160-400) 08/20/23 Sodium 140 mmol/L (135-145) 08/20/23 Potassium 3.7 mmol/L (3.3-5.1) 08/20/23 Chloride 110 mmol/L (96-108) H 08/20/23 Carbon Dioxide 23 mmol/L (22-29) 08/20/23 BUN 30 mg/dL (9-16) H 08/20/23 Creatinine 1.56 mg/dL (0.5-1.4) H 08/20/23 Calcium 9.4 mg/dL (8.4-10.2) 08/20/23 PTH Intact Pending 09/18/23 Urine Creatinine 43.48 mg/dL 08/20/23 Assessment & Plan Assessment & Plan (1) CKD (chronic kidney disease) stage 3, GFR 30-59 ml/min: Code(s): N18.30 - Chronic kidney disease, stage 3 unspecified Category: Medical Qualifiers: Chronic kidney disease stage 3 subtype: stage 3b (GFR 30-44) Qualified Code(s): N18.32 - Chronic kidney disease, stage 3b Plan 68-year-old woman with chronic kidney disease. Three years ago she would right-sided hydronephrosis. No further imaging has been obtain since. Obstructive uropathy should be ruled out. Other possibilities include hypertensive nephrosclerosis and NSAID nephropathy. Glomerulonephritis or interestingly show disease seem unlikely. Workup initiated for CKD. First step is to obtain a renal ultrasonogram to assess the hydronephrosis. If she has ongoing obstruction I would refer her to Urology. Optimize blood pressure. Continue to avoid nephrotoxic agents including NSAIDs. Order renal panel along with the urine studies. She would office once the baseline workup is completed. I will keep you updated . Orders: Orders Creatinine Urine Today N05.9 - Unspecified nephritic syndrome with unspecified morphologic changes, N18.32 - Chronic kidney disease, stage 3b Parathyroid Hormone Intact Today N18.32 - Chronic kidney disease, stage 3b US renal BI Today N18.32 - Chronic kidney disease, stage 3b Comprehensive Met. Panel Today N18.32 - Chronic kidney disease, stage 3b, N18.9 - Chronic kidney disease, unspecified Complete Blood Count Auto Diff Today N18.30 - Chronic kidney disease, stage 3 unspecified Total Protein Urine Random Today N18.32 - Chronic kidney disease, stage 3b UA and rflx microscopic Today N18.32 - Chronic kidney disease, stage 3b Coding Level of Care Code New Pt Level 4 (40158) Diagnoses Stage 3b chronic kidney disease N18.32 Chronic kidney disease stage 3 subtype: stage 3b (GFR 30-44)
== END 2023-09-18 13:57 | disposition home or self-care (01) ==
PROVIDERS: PCP Nurse Practitioner Family; Referring Provider Nurse Practitioner Family; Visit Provider Internal Medicine Hypertension Specialist
DX: N18.32 Chronic kidney disease, stage 3b (principal)
CPT/HCPCS: 99204

== ENCOUNTER 2023-09-18 13:30 | Outpatient (REF) | payer MEDICARE, MEDICAID, SELFPAY ==
--- NOTE | ~2023-09-18 | XR_ITS ---
EXAMINATION: XR LUMBAR SPINE XR THORACIC SPINE XR RIGHT HIP CLINICAL INFORMATION: Low back pain, postlaminectomy syndrome, pain in right hip. COMPARISON: Chest 12/12/2022. TECHNIQUE: AP view of the pelvis and 2 views of the right hip. 2 views of the thoracic spine. 5 views of lumbar spine. FINDINGS: THORACIC SPINE: Dextroscoliosis of the thoracolumbar spine. Surgical clips right upper quadrant. Degenerative changes on very limited images of the cervical spine could be evaluated with dedicated cervical spine radiographs. Advanced multilevel degenerative changes in the thoracic spine with multilevel hypertrophic change and loss of disc space height. LUMBAR SPINE: Levoscoliosis of the lumbar spine. Facet arthritis in the [id number] lumbar spine. Severe multilevel lumbar spondylosis with multilevel loss of disc space height. Superior endplate concavities at L1 and L2 vertebral bodies. Loss of height of L3, L4 and L5 vertebral bodies of indeterminate age and etiology. Grade 1 retrolisthesis of L1 and L2. Grade 1 anterolisthesis of L3 on L4. RIGHT HIP: Left total hip prosthesis partially imaged. Moderate degenerative changes in the bilateral sacroiliac joints. Mild degenerative changes on AP and lateral views of the right hip with mild joint space narrowing. Right hip alignment preserved. XR/XR lumbar spine 4V min IMPRESSION: 1. Severe multilevel lumbar spondylosis with multilevel loss of disc space height. Superior endplate concavities at L1 and L2 vertebral bodies. Loss of height of L3, L4 and L5 vertebral bodies of indeterminate age and etiology. 2. Mild degenerative changes in the right hip. 3. Advanced multilevel degenerative changes in the thoracic spine. 4. Additional imaging with CT scan or MRI should be considered for better visualization as these modalities are much more sensitive for detection of fracture or other underlying pathology.
--- NOTE | ~2023-09-18 | XR_ITS ---
EXAMINATION: XR LUMBAR SPINE XR THORACIC SPINE XR RIGHT HIP CLINICAL INFORMATION: Low back pain, postlaminectomy syndrome, pain in right hip. COMPARISON: Chest 12/12/2022. TECHNIQUE: AP view of the pelvis and 2 views of the right hip. 2 views of the thoracic spine. 5 views of lumbar spine. FINDINGS: THORACIC SPINE: Dextroscoliosis of the thoracolumbar spine. Surgical clips right upper quadrant. Degenerative changes on very limited images of the cervical spine could be evaluated with dedicated cervical spine radiographs. Advanced multilevel degenerative changes in the thoracic spine with multilevel hypertrophic change and loss of disc space height. LUMBAR SPINE: Levoscoliosis of the lumbar spine. Facet arthritis in the [id number] lumbar spine. Severe multilevel lumbar spondylosis with multilevel loss of disc space height. Superior endplate concavities at L1 and L2 vertebral bodies. Loss of height of L3, L4 and L5 vertebral bodies of indeterminate age and etiology. Grade 1 retrolisthesis of L1 and L2. Grade 1 anterolisthesis of L3 on L4. RIGHT HIP: Left total hip prosthesis partially imaged. Moderate degenerative changes in the bilateral sacroiliac joints. Mild degenerative changes on AP and lateral views of the right hip with mild joint space narrowing. Right hip alignment preserved. XR/XR hip RT w PEL1V IMPRESSION: 1. Severe multilevel lumbar spondylosis with multilevel loss of disc space height. Superior endplate concavities at L1 and L2 vertebral bodies. Loss of height of L3, L4 and L5 vertebral bodies of indeterminate age and etiology. 2. Mild degenerative changes in the right hip. 3. Advanced multilevel degenerative changes in the thoracic spine. 4. Additional imaging with CT scan or MRI should be considered for better visualization as these modalities are much more sensitive for detection of fracture or other underlying pathology.
--- NOTE | ~2023-09-18 | XR_ITS ---
EXAMINATION: XR LUMBAR SPINE XR THORACIC SPINE XR RIGHT HIP CLINICAL INFORMATION: Low back pain, postlaminectomy syndrome, pain in right hip. COMPARISON: Chest 12/12/2022. TECHNIQUE: AP view of the pelvis and 2 views of the right hip. 2 views of the thoracic spine. 5 views of lumbar spine. FINDINGS: THORACIC SPINE: Dextroscoliosis of the thoracolumbar spine. Surgical clips right upper quadrant. Degenerative changes on very limited images of the cervical spine could be evaluated with dedicated cervical spine radiographs. Advanced multilevel degenerative changes in the thoracic spine with multilevel hypertrophic change and loss of disc space height. LUMBAR SPINE: Levoscoliosis of the lumbar spine. Facet arthritis in the [id number] lumbar spine. Severe multilevel lumbar spondylosis with multilevel loss of disc space height. Superior endplate concavities at L1 and L2 vertebral bodies. Loss of height of L3, L4 and L5 vertebral bodies of indeterminate age and etiology. Grade 1 retrolisthesis of L1 and L2. Grade 1 anterolisthesis of L3 on L4. RIGHT HIP: Left total hip prosthesis partially imaged. Moderate degenerative changes in the bilateral sacroiliac joints. Mild degenerative changes on AP and lateral views of the right hip with mild joint space narrowing. Right hip alignment preserved. XR/XR thoracic spine 3V IMPRESSION: 1. Severe multilevel lumbar spondylosis with multilevel loss of disc space height. Superior endplate concavities at L1 and L2 vertebral bodies. Loss of height of L3, L4 and L5 vertebral bodies of indeterminate age and etiology. 2. Mild degenerative changes in the right hip. 3. Advanced multilevel degenerative changes in the thoracic spine. 4. Additional imaging with CT scan or MRI should be considered for better visualization as these modalities are much more sensitive for detection of fracture or other underlying pathology.
[2023-09-18 14:35] LABS: MANUAL DIFF FLAG NO
[2023-09-18 15:18] LABS: Basophils Absolute Auto 0.1 X10*3/uL (0.0-0.2); Basophils Percent Auto 1.1 % (0-2); Eosinophils Absolute Auto 0.2 X10*3/uL (0.0-0.4); Eosinophils Percent Auto 2.5 % (0-4); Hematocrit 38.8 % (37.0-47.0); Hemoglobin 12.8 g/dl (12.0-16.0); Imm Gran Abs Auto 0.01 X10*3/uL (0.00-0.03); Imm Gran Pct Auto 0.1 % (0.0-0.4); Lymphocytes Absolute Auto 3.4 X10*3/uL (1.2-4.9); Lymphocytes Percent Auto 41.2 % (20-40); Mean Corpuscular Hemoglobin 32.7 pg (27.0-33.0); Mean Corpuscular Volume 99.2 fL (80.0-98.0); Mean Platelet Volume 10.6 fL (9.4-12.3); Monocytes Absolute Auto 0.6 X10*3/uL (0.1-1.2); Monocytes Percent Auto 6.9 % (2-11); Neutrophils Percent Auto 48.2 % (45-73); Platelet Count 229 X10*3/uL (160-400); Red Blood Count 3.91 X10*6/uL (4.20-5.50); Red Cell Distribution Width 13.2 % (11.0-16.0); White Blood Count 8.3 X10*3/uL (4.8-10.8)
[2023-09-18 15:30] LABS: Appearance Urine Cloudy; Color Urine Yellow; Glucose Urine UA Negative (Negative); Leukocyte Esterase Urine Moderate (2+) (Negative); Nitrite Urine Positive (Negative); PH 5.5 (5.0-9.0); Specific Gravity - Urine 1.015 (1.005-1.025); UMIC TRIGGER UA YES; Urine Blood Small (1+) (Negative); Urine Ketones Negative (Negative); Urine Protein Negative (Neg-Trace)
[2023-09-18 15:39] LABS: Bacteria Urine 4+ (None Seen); Hyaline Casts Urine 0-2 /LPF (0-2); Squamous Epithelial Cell Urine 0-2 /HPF (0-2); WBC Urine >50 /HPF (0-5)
[2023-09-18 15:48] LABS: Alanine Aminotransferase 17 U/L (0-31); Albumin Level 4.4 g/dL (3.5-5.0); Alkaline Phosphatase 57 U/L (39-117); Anion Gap 15 (12-20); Aspartate Amino Transferase 27 U/L (5-31); Bilirubin Total 0.5 mg/dL (0.0-1.0); Blood Urea Nitrogen 21 mg/dL (9-16); Calcium 9.7 mg/dL (8.4-10.2); Carbon Dioxide 25 mmol/L (22-29); Chloride 106 mmol/L (96-108); Estimated Glomerular Filt Rate 35; Glucose Random 80 mg/dL (60-115); Potassium 3.7 mmol/L (3.3-5.1); Sodium 142 mmol/L (135-145); Total Protein 6.8 g/dL (6.5-8.0)
[2023-09-18 16:01] LABS: Creatinine Urine 114.63 mg/dL; Total Protein Urine Random 9 mg/dL (<12)
== END 2023-09-18 13:31 | disposition home or self-care (01) ==
LOC: HO.XRAY 13:30
PROVIDERS: Absent Provider Nurse Practitioner Family; PCP Nurse Practitioner Family; Referring Provider Nurse Practitioner Family; Visit Provider Internal Medicine Hypertension Specialist
DX: N05.9 Unspecified nephritic syndrome with unspecified morphologic changes (principal); M54.50 Low back pain, unspecified; M96.1 Postlaminectomy syndrome, not elsewhere classified; M25.551 Pain in right hip; N18.32 Chronic kidney disease, stage 3b
CPT/HCPCS: 36415; 72072; 72110; 73502; 80053; 81001; 82570; 83970; 84156; 85025; 99202

== ENCOUNTER 2023-10-05 11:08 | Outpatient (REF) | payer MEDICARE, MEDICAID, SELFPAY ==
--- NOTE | ~2023-10-05 | US_ITS ---
EXAMINATION: US RETROPERITONEAL LIMITED (RENAL ONLY) CLINICAL INFORMATION: Chronic kidney disease, stage 3b. COMPARISON: None available. TECHNIQUE: Real-time imaging of the kidneys. Limited visualization due to bowel gas. FINDINGS: RIGHT KIDNEY: 7.1 x 2.1 x 2.4 cm (SAG x AP x TRV). Diffuse renal cortical thinning. No hydronephrosis. No renal calculi. Limited visualization. 1.2 cm lower pole cyst with benign features. 0.5 cm mid pole cyst with benign features. There is no indication for follow-up imaging. LEFT KIDNEY: 9.4 x 5.1 x 4.7 cm (SAG x AP x TRV). No hydronephrosis. No renal calculi. Limited visualization. Renal cortical thickness is normal. 0.8 cm mid pole cyst with benign features. 0.6 cm upper pole cyst with benign features. There is no indication for additional imaging. US/US renal BI IMPRESSION: 1. Atrophic right kidney with diffuse renal cortical thinning. 2. No hydronephrosis. No renal calculi.
== END 2023-10-05 11:09 | disposition home or self-care (01) ==
LOC: HO.US 11:08
PROVIDERS: PCP Nurse Practitioner Family; Visit Provider Psychiatry & Neurology Neurology
DX: N18.32 Chronic kidney disease, stage 3b (principal)
CPT/HCPCS: 76775

== ENCOUNTER 2023-10-09 13:10 | Outpatient (AMB) | payer MEDICARE, MEDICAID, SELFPAY ==
--- NOTE | 2023-10-09 13:26 | HO.NEPHOV ---
Intake Visit Reasons: CKD / 3 weeks fu/ Conf Allergies No Known Allergies Allergy (Verified 09/18/23 13:39) HPI Comments Details: Sangita is a pleasant 68-year-old woman referred for evaluation of CKD. Serum creatinine was 1.56. She has recently moved from [place]. In 2020 she had an MRI which showed hydronephrosis on the right side. Apparently this has not been addressed and she has not aware of this finding. MRI showed advanced multilevel lumbar spondylosis. She is significant pain and he has been taking NSAIDs on and off. Prior to this she was on narcotics which she has not taking currently. She has a history of hypertension. She has been on lisinopril 10 mg a day. She is history of smoking, currently smokes less than 10 a day. 10/09/23 Still on Naprosyn 500 BID [facility] Medical History (Updated 09/18/23 @ 14:59 by Wilder Chaney MD) Polyarthralgia Lumbar degenerative disc disease ISSAC (generalized anxiety disorder) HTN (hypertension) Chronic back pain Renal stones Social History Household Members: Other Household Members Other:: Roommate x1 Housing: Other Housing Other:: Roommate 75 years or older and lives alone: No Alcohol intake: former Patient Tobacco Use Status: Current everyday Tobacco user Tobacco use type: Cigarette Cigarettes Per Day: 6 Years Smoked: 40 e-Cigarette/Vaping Use: Currently Using Substance Use Type: Marijuana service: No Current occupational status: disabled Current occupational exposures/hazards: No Sexual orientation: Straight/Heterosexual Gender identity: Female Cognitive needs: No Hearing needs: No Vision needs: Yes Physical Exam Const General: comfortable Nutritional Appearance: well nourished Orientation/consciousness: patient oriented x3 HEENT Head: No normal to inspection Mouth: moist mucous membranes Neck Neck: Yes supple and Yes no JVD Resp Auscultation: clear to auscultation bilaterally and no rales Cardio Jugular venous distension: no JVD Palpation: no palpable S3 and no palpable S4 Heart sounds: no rubs GI Palpation (GI): Soft to palpation and nontender Percussion: No Fluid wave present General: Yes no CVA tenderness Back/Spine/Pelvis Back: no CVA tenderness Skin General skin exam: no rashes or lesions noted Neuro General: patient oriented x3 Extrem General: Yes no pedal edema and No clubbing Results Reviewed Nephrology Results: Hgb 12.8 g/dl (12.0-16.0) 09/18/23 WBC 8.3 X10*3/uL (4.8-10.8) 09/18/23 Plt Count 229 X10*3/uL (160-400) 09/18/23 Sodium 142 mmol/L (135-145) 09/18/23 Potassium 3.7 mmol/L (3.3-5.1) 09/18/23 Chloride 106 mmol/L (96-108) 09/18/23 Carbon Dioxide 25 mmol/L (22-29) 09/18/23 BUN 21 mg/dL (9-16) H 09/18/23 Creatinine 1.50 mg/dL (0.5-1.4) H 09/18/23 Calcium 9.7 mg/dL (8.4-10.2) 09/18/23 PTH Intact 33.0 pg/mL (8.7-77.1) 09/18/23 Urine Protein Negative mg/dL (Neg-Trace) 09/18/23 Urine Creatinine 114.63 mg/dL 09/18/23 Renal US 10/05/23 Assessment & Plan Assessment & Plan (1) CKD (chronic kidney disease) stage 3, GFR 30-59 ml/min: Code(s): N18.30 - Chronic kidney disease, stage 3 unspecified Category: Medical Qualifiers: Chronic kidney disease stage 3 subtype: stage 3b (GFR 30-44) Qualified Code(s): N18.32 - Chronic kidney disease, stage 3b Plan 68-year-old woman with chronic kidney disease. Three years ago she would right-sided hydronephrosis. No further imaging has been obtain since. Obstructive uropathyruled out- Repeat sono appears normal Report pending Other possibilities include hypertensive nephrosclerosis and NSAID nephropathy. Glomerulonephritis or interestingly show disease seem unlikely. No significant proteinuria Creatinine is marginally better PLAN STOP NAPROSYN Change LISINOPRIL to AMlodipine 2.5 mg QD Optimize blood pressure. Continue to avoid nephrotoxic agents including NSAIDs. Orders: Orders Basic Metabolic Panel Today N18.32 - Chronic kidney disease, stage 3b Medications: New amlodipine 2.5 mg PO DAILY 30 tabs 1RF Discontinued lisinopril Discontinued Reason: Doctor's Order 10 mg PO DAILY 90 tabs 0RF naproxen Discontinued Reason: Doctor's Order 500 mg PO BID PRN 30 tabs 3RF pain Coding Level of Care Code Est Pt Level 4 (87459) Diagnoses Stage 3b chronic kidney disease N18.32 Chronic kidney disease stage 3 subtype: stage 3b (GFR 30-44)
== END 2023-10-09 15:39 | disposition home or self-care (01) ==
PROVIDERS: PCP Nurse Practitioner Family; Visit Provider Internal Medicine Hypertension Specialist
DX: N18.32 Chronic kidney disease, stage 3b (principal)
CPT/HCPCS: 99214

== ENCOUNTER → 2023-10-09 13:10 | Outpatient (BNVA) | payer MEDICARE, MEDICAID, SELFPAY | PROVIDERS: PCP Nurse Practitioner Family; Visit Provider Internal Medicine Hypertension Specialist | DX: N18.32 Chronic kidney disease, stage 3b (principal) | CPT/HCPCS: 99212 ==

== ENCOUNTER 2023-10-11 14:23 | Outpatient (AMB) | payer MEDICARE, MEDICAID, SELFPAY ==
--- NOTE | 2023-10-11 14:33 | MHC.OFFVIS ---
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 Patient reports her leg pain has been ongoing for 16 years. She denies recent injury, numbness and tingling. She states she has weakness and the pain is exhausting on her ADLs. She is unable to stand and sit for prolonged time, when she sits too long and extends her knee she feels sharp pain and popping on the medial aspect of her right knee. During ambulation she feels electric shocks going down her leg. She lives on the third floor of her apartment and she does not like to go out to avoid having to ambulate. Hx of Left TKA and ELAINE. She has tried and failed Tylenol. She would like to discuss surgery options. 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 She states she has stabbing, burning, constant, chronic pain and weakness in her RLE that is affecting her AODLs. She attributes her pain to a pinched spinal cord that radiates down to her leg. Her pain is aggravated with standing or sitting for prolonged time and she experiences a sharp pain and popping at the medial aspect of her knee upon extending her knee after prolonged sitting. She also experiences a ?electrical shocks? sensation going down her leg during ambulation. She denies any numbness and tingling and has not had any injury in the past. She lives on the 3rd floor of her apartment and does not like to go out to avoid having to ambulate. She finds no relief with Tylenol. She would like to discuss surgical intervention. She has a history of left TKA and left EALINE. [facility] Medical History Polyarthralgia Lumbar degenerative disc disease ISSAC (generalized anxiety disorder) HTN (hypertension) Chronic back pain Renal stones Social History Household Members: Other Household Members Other:: Roommate x1 Housing: Other Housing Other:: Roommate 75 years or older and lives alone: No Alcohol intake: former Patient Tobacco Use Status: Current everyday Tobacco user Tobacco use type: Cigarette Cigarettes Per Day: 6 Years Smoked: 40 e-Cigarette/Vaping Use: Currently Using Substance Use Type: Marijuana service: No Current occupational status: disabled Current occupational exposures/hazards: No Sexual orientation: Straight/Heterosexual Gender identity: Female Cognitive needs: No Hearing needs: No Vision needs: Yes Review of Systems Const All systems reviewed & are unremarkable except as noted in HPI and below Physical Exam Vital Signs: BMI result Body Mass Index 24.2 Const General: cooperative, healthy appearing, comfortable, no acute distress, well developed and alert Orientation/consciousness: patient oriented x3 HEENT Head: Yes normal to inspection, Yes normocephalic and Yes atraumatic Eyes General: appearance normal, both eyes and all related structures Resp Effort & Inspection: normal respiratory effort and able to speak in complete sentences Cardio Rate: regular rate Peripheral pulses: Peripheral pulses 2+ throughout GI Palpation (GI): Soft to palpation Skin Lesions: no lesions Rashes: no rashes Neuro General: patient oriented x3 Extrem Other: Right hip: Normal to inspection. No pain with ROM of the hip. Pain along the greater trochanter. No pain with hip flexion or abduction. Positive tenderness along the SI joint, Positive SLR. NVI. Results Reviewed Results Reviewed: xrays of the right hip obtained on 09/18/23 shoe mild oa Assessment & Plan Assessment & Plan (1) Lumbar degenerative disc disease: Code(s): M51.36 - Other intervertebral disc degeneration, lumbar region Category: Medical (2) Polyarthralgia: Code(s): M25.50 - Pain in unspecified joint Category: Medical (3) Right hip pain: Code(s): M25.551 - Pain in right hip Category: Medical Plan I did refer her to neurospine providers. She had an MRI in 2021 and she is also seeing pain management but she does have significant history of chronic back pain and is looking for some more definitive options. Orders: Referrals Neuro Spine Referral M51.36 - Other intervertebral disc degeneration, lumbar region Patient Instructions: Scribed for Darian Obando PA-C, by villa Barnett scribe, on 10/11/2023 at 3:00 PM EST.? I, Darian Obando PA-C, have personally reviewed and agree with the information entered by the scribe. Coding Level of Care Code New Pt Level 3 (65893) Diagnoses Lumbar degenerative disc disease M51.36 Polyarthralgia M25.50 Right hip pain M25.551
[2023-10-11 14:43] VITALS: BMI 24.2
== END 2023-10-11 16:14 | disposition home or self-care (01) ==
PROVIDERS: PCP Nurse Practitioner Family; Visit Provider Physician Assistant
DX: M51.36 Other intervertebral disc degeneration, lumbar region (principal); M25.551 Pain in right hip; M25.50 Pain in unspecified joint
CPT/HCPCS: 99203

== ENCOUNTER → 2023-10-11 14:23 | Outpatient (BNVA) | payer MEDICARE, MEDICAID, SELFPAY | PROVIDERS: PCP Nurse Practitioner Family; Visit Provider Physician Assistant | DX: M25.551 Pain in right hip (principal); M25.50 Pain in unspecified joint; M51.36 Other intervertebral disc degeneration, lumbar region; Z96.652 Presence of left artificial knee joint; Z96.642 Presence of left artificial hip joint | CPT/HCPCS: 99202 ==

== ENCOUNTER 2023-10-22 13:02 | Outpatient (AMB) | payer MEDICARE, MEDICAID, SELFPAY ==
--- NOTE | 2023-10-22 13:03 | MHC.OFFVIS ---
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 She was recently seen by Orthopedics for right hip pain due to mild OA and was referred to [facility] Neuro Spine for potential surgical option for intractable low back pain. She is suffering from spinal-stenosis related low back pain with bilateral leg pain, worsened with walking or standing. Her back and leg pain partially improves when resting, sitting or leaning forward. She also has bilateral low back pain with radiation into her buttocks and lateral hips with positive provocative testing for sacroiliac joint pain, worse on the right side. Denies bladder or bowel dysfunction or saddle anesthesia. Patient reports diagnosis of osteopenia over 10 years ago. Denies any recent cough, cold, infection, fever, any significant changes in her medical history, medications or recent hospitalizations. PRIOR: Patient is a 68 years old female with history of cervical and lumbar degenerative disc and joint disease, scoliosis, OA, neuropathy, fibromyalgia, bulging discs, failed laminectomy and fusion surgery, chronic pain syndrome, fatigue, lumbar and cervical radiculopathy, polyarthralgia, h/o left hip and left knee replacements, CKD stage 3, presents today for initial evaluation for chronic pain syndrome and multiple pain generators and to discuss medical pain management. Patient has moved from [facility] a year ago to stay closer to her family and grandchildren. She reports extensive multilevel lumbar laminectomies in [place] with minimal and temporary pain relief. She also underwent lumbar SCS trial successfully per patient but was not allowed to proceed with implant due to need for additional back surgery. Patient reports back pain 7-810, leg pain 7/10, and neck and shoulder pain 7/10. Pain affects her daily activities, mobility, sleep, mood and quality of life. Denies any fever, weight loss, abdominal or groin pain, bladder or bowel dysfunction or saddle anesthesia. Reports balance issues this prolonged walking or standing due to pain. She was told in [place] she will need right hip replacement surgery. Patient reports she used to be on pain contract in the past and has been taking Oxycodone 30 mg QID, Fentanyl patch 50 mcg every 48 hours, Belbuca 300 mcg every 48 hours and before she left [facility], she states she was titrated down to Oxycodone 20 mg and no Fentanyl. Patient also brought in her medication bottle of cyclobenzaprine which in 2021 which she continues to take and does not want to discard. Patient requests opioid contract paperwork to restart her on opioid medication and Topomax. When asked about CKD, patient declines diagnosis and states she was told by her PCP she has stage 3 liver disease and has liver cysts on previous imaging. Patient also reports taking Celebrex daily and insists that she does not have kidney disease. Upon recent lab review with patient, noting to her recent BUN=30, Cr=1.56, GFR=33 on 08/20/23, patient states her all labs in [place] were normal and states our labs are not correct. I recommend patient to see Nephrology for further evaluation. Patient was also informed that I do not offer opioid prescribing and encourage her to stop Celebrex and avoid other NSAIDs. She also reports intermittent use of Naproxen. Patient reports strong family history for lumbar DDD, including her mother, brother and 3 children. Her son and brother underwent extensive back surgeries. Patient smokes 1/4 PPD, consumes instant coffee twice daily, uses marijuana for pain in am and pm. Denies alcohol or illicit drug use. Location: Lower back pain due DDD, right hip and groin pain, legs, neck, shoulders Duration: Chronic pain for years, h/o fell down basement steps at the age 29 Characteristics of symptom or complaint: Tiring, sharp, burning, shooting, aching Aggravating or associated factors: Movements, weather changes, cold applications, walking, standing Relieving factors: Heat, topical medication, opioids, Celebrex, naproxen, duloxetine Treatment: PT, multiple laminectomies/fusion (2007), SCS trial, injections, TENS unit [facility] Medical History Polyarthralgia Lumbar degenerative disc disease ISSAC (generalized anxiety disorder) HTN (hypertension) Chronic back pain Renal stones Social History (Reviewed 10/22/23 @ 20:05 by KANDICE Jaquez Household Members: Other Household Members Other:: Roommate x1 Housing: Other Housing Other:: Roommate 75 years or older and lives alone: No Alcohol intake: former Patient Tobacco Use Status: Current everyday Tobacco user Tobacco use type: Cigarette Cigarettes Per Day: 6 Years Smoked: 40 e-Cigarette/Vaping Use: Currently Using Substance Use Type: Marijuana service: No Current occupational status: disabled Current occupational exposures/hazards: No Sexual orientation: Straight/Heterosexual Gender identity: Female Cognitive needs: No Hearing needs: No Vision needs: Yes Review of Systems Const All systems reviewed & are unremarkable except as noted in HPI and below Physical Exam Vital Signs: Last Vital Signs Pulse 76 10/22/23 13:10 BP 136/73 10/22/23 13:10 Pulse Ox 97 10/22/23 13:10 Oxygen Delivery Method Room Air 10/22/23 13:10 BMI result Body Mass Index 24.2 General: Appears afebrile. Alert and oriented. Mood and affect appropriate. Follows and participates in conversation appropriately. Respiratory effort is unlabored. No cough. Able to transition from sit to stand unassisted. Mild antalgic gait with slight limping. No assisting devices. Ambulates with bilaterally normal heel strike and toe off, reports unsteadiness on right due to hip and leg pain. Back/Spine/Pelvis Other: Limited lumbar ROM. TTP over paraspinals from L3-S1. Pain in all ranges of motion, lumbar extension and facet loading bilaterally reproduces moderate pain. Moderate pain with lumbar flexion. Strength 5/5 left and 4/5 right hip flexion bilaterally. Mild tenderness to bilateral GTB. Diminished DTRs bilaterally, no clonus. Right KACY test reproduces right lateral hip, mild right groin and right lower back pain. KACY not tested on the left due to h/o hip and knee replacements. +Stinchfield, +Pelvic compression positive bilaterally, right>left. +Moderate TTP in projection of right SIJ. Valsalva maneuver is negative. Cervical Spine: cervical muscular tenderness, pain with cervical ROM and No Cervical spine tenderness Thoracic/Lumbar Spine: thoracic and lumbar spine normal to inspection, Thoracic/lumbar spine scar(s), Lasegue's sign positive on the right and diffuse, pain with thoraco-lumbar ROM, paraspinal muscle tenderness, thoraco-lumbar ROM limited, Thoracic/lumbar scoliosis, thoracic spinal tenderness (lower thoracic, right>left), lumbar spinal tenderness (L3-S1) and straight leg raise positive right at 60 degrees Pelvis: buttock tenderness bilaterally Sacroiliac joints: bilaterally (right>left) tender to palpation Extrem General: Yes capillary refill normal, Yes no clubbing, cyanosis or edema and Yes no calf tenderness Results Reviewed Results Reviewed: XR LUMBAR SPINE XR THORACIC SPINE XR RIGHT HIP 09/18/23 CLINICAL INFORMATION: Low back pain, postlaminectomy syndrome, pain in right hip. COMPARISON: Chest 12/12/2022. TECHNIQUE: AP view of the pelvis and 2 views of the right hip. 2 views of the thoracic spine. 5 views of lumbar spine. FINDINGS: THORACIC SPINE: Dextroscoliosis of the thoracolumbar spine. Surgical clips right upper quadrant. Degenerative changes on very limited images of the cervical spine could be evaluated with dedicated cervical spine radiographs. Advanced multilevel degenerative changes in the thoracic spine with multilevel hypertrophic change and loss of disc space height. LUMBAR SPINE: Levoscoliosis of the lumbar spine. Facet arthritis in the [id number] lumbar spine. Severe multilevel lumbar spondylosis with multilevel loss of disc space height. Superior endplate concavities at L1 and L2 vertebral bodies. Loss of height of L3, L4 and L5 vertebral bodies of indeterminate age and etiology. Grade 1 retrolisthesis of L1 and L2. Grade 1 anterolisthesis of L3 on L4. RIGHT HIP: Left total hip prosthesis partially imaged. Moderate degenerative changes in the bilateral sacroiliac joints. Mild degenerative changes on AP and lateral views of the right hip with mild joint space narrowing. Right hip alignment preserved. IMPRESSION: 1. Severe multilevel lumbar spondylosis with multilevel loss of disc space height. Superior endplate concavities at L1 and L2 vertebral bodies. Loss of height of L3, L4 and L5 vertebral bodies of indeterminate age and etiology. 2. Mild degenerative changes in the right hip. 3. Advanced multilevel degenerative changes in the thoracic spine. 4. Additional imaging with CT scan or MRI should be considered for better visualization as these modalities are much more sensitive for detection of fracture or other underlying pathology. Assessment & Plan Assessment & Plan (1) Chronic back pain: Comment: refer to [facility] Pain mgmt for further eval and tx Cont Cymbalta and NSAIDS she asked for RX for diclofenac topical as she has used this in the past with + effect, this was sent in. Code(s): M54.9 - Dorsalgia, unspecified; G89.29 - Other chronic pain Category: Medical Qualifiers: Back pain laterality: right Back pain location: low back pain Sciatica laterality: sciatica of right side Sciatica presence: with sciatica Qualified Code(s): M54.41 - Lumbago with sciatica, right side; G89.29 - Other chronic pain (2) Low back pain: Code(s): M54.50 - Low back pain, unspecified Category: Medical (3) Lumbar degenerative disc disease: Code(s): M51.36 - Other intervertebral disc degeneration, lumbar region Category: Medical (4) Right hip pain: Code(s): M25.551 - Pain in right hip Category: Medical (5) Lumbar degenerative disc disease: Code(s): M51.36 - Other intervertebral disc degeneration, lumbar region Category: Medical (6) Lumbar post-laminectomy syndrome: Code(s): M96.1 - Postlaminectomy syndrome, not elsewhere classified Category: Medical (7) Lumbar spinal stenosis: Code(s): M48.061 - Spinal stenosis, lumbar region without neurogenic claudication Category: Medical Plan MRI of the lumbar spine to assess for neural integrity and compression and follow up on previous lumbar MRI findings. Patient's back pain is function and mobility limiting and has been resistant to conservative treatments. We will also update her bone scan with remote history of osteopenia prior to considering therapeutic injectiions for radicular or SIJ related pain generators. Patient is not interested in neuromodulation, implants or temporary PNS trials. We also discussed RFA procedure and Neurosurgical evaluation. Patient is aware to call if pain worsens or if she develops any red flag symptoms to seek emergency care. Patient denies any cauda equina syndrome symptoms at this time. All questions and concerns have been answered and patient agreed with the plan. Follow-up for MRI results and sooner as needed. Orders: Orders XR DEXA axial skeleton Today G89.29 - Other chronic pain, M25.50 - Pain in unspecified joint, M25.551 - Pain in right hip, M51.36 - Other intervertebral disc degeneration, lumbar region, M54.41 - Lumbago with sciatica, right side, M54.50 - Low back pain, unspecified MR lumbar spine wo con Today M48.061 - Spinal stenosis, lumbar region without neurogenic claudication, M51.36 - Other intervertebral disc degeneration, lumbar region, M96.1 - Postlaminectomy syndrome, not elsewhere classified Coding Level of Care Code Est Pt Level 4 (05946) Diagnoses Chronic right-sided low back pain with right-sided sciatica M54.41; G89.29 Back pain laterality: right Back pain location: low back pain Sciatica laterality: sciatica of right side Sciatica presence: with sciatica Low back pain M54.50 Lumbar degenerative disc disease M51.36 Right hip pain M25.551 Lumbar post-laminectomy syndrome M96.1 Lumbar spinal stenosis M48.061
[2023-10-22 13:10] VITALS: BP 136/73; PULSE 76; O2SAT 97; BMI 24.2
== END 2023-10-22 13:39 | disposition home or self-care (01) ==
PROVIDERS: PCP Nurse Practitioner Family; Visit Provider Nurse Practitioner Family
DX: M51.36 Other intervertebral disc degeneration, lumbar region (principal); M25.551 Pain in right hip; M96.1 Postlaminectomy syndrome, not elsewhere classified; M48.061 Spinal stenosis, lumbar region without neurogenic claudication
CPT/HCPCS: 99214

== ENCOUNTER → 2023-10-22 13:02 | Outpatient (BNVA) | payer MEDICARE, MEDICAID, SELFPAY | PROVIDERS: PCP Nurse Practitioner Family; Visit Provider Nurse Practitioner Family | DX: G89.29 Other chronic pain (principal); M54.41 Lumbago with sciatica, right side; M51.36 Other intervertebral disc degeneration, lumbar region; M25.551 Pain in right hip; M96.1 Postlaminectomy syndrome, not elsewhere classified; M48.061 Spinal stenosis, lumbar region without neurogenic claudication | CPT/HCPCS: 99212 ==

== ENCOUNTER 2023-10-25 12:14 | Outpatient (AMB) | payer OTHER, SELFPAY ==
--- NOTE | 2023-10-25 12:08 | MHC.PC.OV ---
Intake Visit Reasons: F/u med ~ [phone] Intake Note: Patient states that she is unsure of the reason of this visit. She states she never received referral for her liver damage. Counter Stacker Required: No Allergies No Known Allergies Allergy (Verified 10/25/23 12:44) Medication List - Last Reconciled 10/25/23 by Keyona Knowles, SALES DONOR RECRUITMENT REPRESENTATIVE- albuterol sulfate 90 mcg/actuation 2 puffs inhalation Q4H PRN amlodipine 2.5 mg PO DAILY budesonide-formoterol 160-4.5 mcg/actuation (Symbicort) 2 inhalations inhalation BID diclofenac sodium 1% 2 grams topical QID PRN duloxetine 60 mg PO DAILY ipratropium-albuterol 0.5 mg-3 mg(2.5 mg base)/3 mL 3 mL inhalation Q6H PRN lisinopril 10 mg PO DAILY metoprolol succinate ER 25 mg PO DAILY montelukast 10 mg PO DAILY naproxen 500 mg PO BID Tobacco use date assessed: 08/20/23 Dental Screening Dental Screen Date: 08/20/23 HPI HPI Comments History of Present Illness Details 68 y/o F with HTN, Cataracts, chronic back pain, ISSAC, current smoker, COPD, Ckd 3A Telehealth visit today to discuss a referral. The previous message indicated that she wanted a hematology referral. I was unsure why she wanted this. Upon speaking with her she wants a referral to a liver specialist. She endorses a history of a liver cyst found previously by her primary care and [place] the and needs this followed up on. Unfortunately I do not have these records. I have reviewed the imaging that she has had done at [facility] since her last office visit and this includes spinal x-rays and a renal ultrasound. None of which have picked up on any liver abnormalities. Her last labs x2 showed normal LFTs. Be that as it may I will refer her to Gastroenterology for further evaluation and treatment. I have reviewed her chart in the consultations with pain management, renal and Orthopedics since her last office visit. Renal ultrasound 10/05/2023 shows 2 right renal cysts that are benign,, 2 cysts on the left kidney also benign, atrophic right kidney with diffuse renal cortical thinning Med changes made at this office visit STOP NAPROSYN Change LISINOPRIL to AMlodipine 2.5 mg QD She reports tolerance and compliance with the medication changes recommended by Nephrology. Plan Refer to gastroenterology for evaluation and treatment of a liver lesion that patient endorses was found while in [place] her previous primary care provider. [facility] Medical History Polyarthralgia Lumbar degenerative disc disease ISSAC (generalized anxiety disorder) HTN (hypertension) Chronic back pain Renal stones Social History Household Members: Other Household Members Other:: Roommate x1 Housing: Other Housing Other:: Roommate 75 years or older and lives alone: No Alcohol intake: former Patient Tobacco Use Status: Current everyday Tobacco user Tobacco use type: Cigarette Cigarettes Per Day: 6 Years Smoked: 40 e-Cigarette/Vaping Use: Currently Using Substance Use Type: Marijuana service: No Current occupational status: disabled Current occupational exposures/hazards: No Sexual orientation: Straight/Heterosexual Gender identity: Female Cognitive needs: No Hearing needs: No Vision needs: Yes Questionnaire Thrive Questionnaire Date Thrive assessed: 08/20/23 ISSAC-7 AMB Questionnaire ISSAC-7 Date ISSAC - 7 assessed: 08/20/23 Source: Developed by Drs. Nick Warren, Deepika Umana, David Bui and colleagues, with an educational paulette from [employer]. Physical exam (Primary Care) Tobacco/Smoking Status: Tobacco use Status Tobacco use date assessed 08/20/23 10/25/23 12:10 Patient Tobacco Use Status Current everyday Tobacco 10/25/23 12:10 Tobacco use type Cigarette 10/25/23 12:10 e-Cigarette/Vaping Use Currently Using 10/25/23 12:10 Thrive Assessment: Date of Thrive Assessment Date Thrive assessed 08/20/23 10/25/23 12:10 Telehealth Telehealth Telehealth Platform: Telephone Location of provider rendering services: practice address Location of patient: address on file Patient Identification confirmed using: Name, : Yes Telehealth method: voice only Patient verbally consented to treatment: Yes Patient verbally consented to billing insurance company: Yes Patient informed of any privacy concerns related to visit: Yes Minutes spent on Phone/Video with Pt.: 11 Assessment and Plan Assessment & Plan (1) Liver disease: Comment: self reported liver cyst found by previous pcp in [place]- i unfortunately don't have records Code(s): K76.9 - Liver disease, unspecified Orders: Referrals Gastroenterology Referral K76.9 - Liver disease, unspecified Coding Level of Care Code Tele Est Pt Level 2 (86998) Diagnoses Liver disease K76.9
== END 2023-10-25 13:03 | disposition home or self-care (01) ==
LOC: HO.HMGFM 12:14
PROVIDERS: PCP Nurse Practitioner Family; Visit Provider Nurse Practitioner Family
DX: K76.9 Liver disease, unspecified (principal)
CPT/HCPCS: 99212

== ENCOUNTER 2023-11-08 14:17 | Outpatient (AMB) | payer OTHER, SELFPAY ==
[2023-11-08 14:20] VITALS: BP 160/82; PULSE 67; O2SAT 96; BMI 26.3
--- NOTE | 2023-11-08 14:20 | HO.NEPHOV_ITS ---
Vital Signs 11/08/23 14:20 Height 4 ft 10 in Weight 126 lb BMI 26.3 BP 160/82 H Blood Pressure Location Lt brachial Position Sitting Pulse 67 Pulse Source Pulse Oximeter Pulse Oximetry (%) 96 Oxygen Delivery Method Room Air Intake Visit Reasons: CKD/ Conf Medication Care Manager Required: No Accompanied by: Self / Same As Patient Allergies No Known Allergies Allergy (Verified 11/08/23 14:23) Medication List - Last Reconciled 11/08/23 by Wilder Chaney MD albuterol sulfate 90 mcg/actuation 2 puffs inhalation Q4H PRN amlodipine 2.5 mg PO DAILY budesonide-formoterol 160-4.5 mcg/actuation (Symbicort) 2 inhalations inhalation BID diclofenac sodium 1% 2 grams topical QID PRN duloxetine 60 mg PO DAILY ipratropium-albuterol 0.5 mg-3 mg(2.5 mg base)/3 mL 3 mL inhalation Q6H PRN metoprolol succinate ER 25 mg PO DAILY montelukast 10 mg PO DAILY HPI Comments Details: Sangita is a pleasant 68-year-old woman referred for evaluation of CKD. Serum creatinine was 1.56. She has recently moved from [place]. In 2020 she had an MRI which showed hydronephrosis on the right side. Apparently this has not been addressed and she has not aware of this finding. MRI showed advanced multilevel lumbar spondylosis. She is significant pain and he has been taking NSAIDs on and off. Prior to this she was on narcotics which she has not taking currently. She has a history of hypertension. She has been on lisinopril 10 mg a day. She is history of smoking, currently smokes less than 10 a day. 10/09/23 Still on Naprosyn 500 BID [facility] Medical History Polyarthralgia Lumbar degenerative disc disease ISSAC (generalized anxiety disorder) HTN (hypertension) Chronic back pain Renal stones Social History Household Members: Other Household Members Other:: Roommate x1 Housing: Other Housing Other:: Roommate 75 years or older and lives alone: No Alcohol intake: former Patient Tobacco Use Status: Current everyday Tobacco user Tobacco use type: Cigarette Cigarettes Per Day: 6 Years Smoked: 40 e-Cigarette/Vaping Use: Currently Using Substance Use Type: Marijuana service: No Current occupational status: disabled Current occupational exposures/hazards: No Sexual orientation: Straight/Heterosexual Gender identity: Female Cognitive needs: No Hearing needs: No Vision needs: Yes Physical Exam Vital Signs: Last Vital Signs Pulse 67 11/08/23 14:20 BP 160/82 H 11/08/23 14:20 Pulse Ox 96 11/08/23 14:20 Oxygen Delivery Method Room Air 11/08/23 14:20 BMI result Body Mass Index 26.3 Const General: comfortable Nutritional Appearance: well nourished Orientation/consciousness: patient oriented x3 HEENT Head: No normal to inspection Mouth: moist mucous membranes Neck Neck: Yes supple and Yes no JVD Resp Auscultation: clear to auscultation bilaterally and no rales Cardio Jugular venous distension: no JVD Palpation: no palpable S3 and no palpable S4 Heart sounds: no rubs GI Palpation (GI): Soft to palpation and nontender Percussion: No Fluid wave present General: Yes no CVA tenderness Back/Spine/Pelvis Back: no CVA tenderness Skin General skin exam: no rashes or lesions noted Neuro General: patient oriented x3 Extrem General: Yes no pedal edema and No clubbing Results Reviewed Results Reviewed: USG September 2023 RIGHT KIDNEY: 7.1 x 2.1 x 2.4 cm (SAG x AP x TRV). Diffuse renal cortical thinning. No hydronephrosis. No renal calculi. Limited visualization. 1.2 cm lower pole cyst with benign features. 0.5 cm mid pole cyst with benign features. There is no indication for follow-up imaging. LEFT KIDNEY: 9.4 x 5.1 x 4.7 cm (SAG x AP x TRV). No hydronephrosis. No renal calculi. Limited visualization. Renal cortical thickness is normal. 0.8 cm mid pole cyst with benign features. 0.6 cm upper pole cyst with benign features. There is no indication for additional imaging. US/US renal BI IMPRESSION: 1. Atrophic right kidney with diffuse renal cortical thinning. 2. No hydronephrosis. No renal calculi. Nephrology Results: Hgb 12.2 g/dl (12.0-16.0) 11/08/23 WBC 9.9 X10*3/uL (4.8-10.8) 11/08/23 Plt Count 235 X10*3/uL (160-400) 11/08/23 Sodium 142 mmol/L (135-145) 09/18/23 Potassium 3.7 mmol/L (3.3-5.1) 09/18/23 Chloride 106 mmol/L (96-108) 09/18/23 Carbon Dioxide 25 mmol/L (22-29) 09/18/23 BUN 21 mg/dL (9-16) H 09/18/23 Creatinine 1.50 mg/dL (0.5-1.4) H 09/18/23 Calcium 9.7 mg/dL (8.4-10.2) 09/18/23 PTH Intact 33.0 pg/mL (8.7-77.1) 09/18/23 Urine Protein Negative mg/dL (Neg-Trace) 09/18/23 Urine Creatinine 114.63 mg/dL 09/18/23 Renal US 10/05/23 Assessment & Plan Assessment & Plan (1) CKD (chronic kidney disease) stage 3, GFR 30-59 ml/min: Code(s): N18.30 - Chronic kidney disease, stage 3 unspecified Category: Medical Qualifiers: Chronic kidney disease stage 3 subtype: stage 3b (GFR 30-44) Qualified Code(s): N18.32 - Chronic kidney disease, stage 3b Plan 68-year-old woman with chronic kidney disease. Three years ago she had right-sided hydronephrosis. No further imaging has been obtain since. Obstructive uropathy ruled out- Repeat sono appears normal with out hydro Other possibilities include hypertensive nephrosclerosis and NSAID nephropathy. Glomerulonephritis or interstitial disease seem unlikely. No significant proteinuria Creatinine is unchanged Atrophic RIGHT kidney measuring 7.1 cm PLAN STOP NAPROSYN Changed LISINOPRIL to Amlodipine Optimize blood pressure. BP is sub optimal INCREASED AMLODIPINE To 5 mg DAILY Continue to avoid nephrotoxic agents including NSAIDs. Orders: Orders Complete Blood Count Auto Diff Today N18.32 - Chronic kidney disease, stage 3b Comprehensive Met. Panel Today N18.32 - Chronic kidney disease, stage 3b Medications: Changed From amlodipine 2.5 mg PO DAILY 30 tabs 1RF To amlodipine 5 mg PO DAILY 30 tabs 3RF Coding Level of Care Code Est Pt Level 4 (84063) Diagnoses Stage 3b chronic kidney disease N18.32 Chronic kidney disease stage 3 subtype: stage 3b (GFR 30-44)
== END 2023-11-08 14:47 | disposition home or self-care (01) ==
PROVIDERS: PCP Nurse Practitioner Family; Visit Provider Internal Medicine Hypertension Specialist
DX: N18.32 Chronic kidney disease, stage 3b (principal)
CPT/HCPCS: 99214

== ENCOUNTER 2023-11-08 14:17 | Outpatient (REF) | payer OTHER, SELFPAY ==
[2023-11-08 15:24] LABS: MANUAL DIFF FLAG NO
[2023-11-08 16:16] LABS: Basophils Absolute Auto 0.1 X10*3/uL (0.0-0.2); Basophils Percent Auto 0.7 % (0-2); Eosinophils Absolute Auto 0.4 X10*3/uL (0.0-0.4); Hematocrit 36.8 % (37.0-47.0); Hemoglobin 12.2 g/dl (12.0-16.0); Imm Gran Abs Auto 0.04 X10*3/uL (0.00-0.03); Imm Gran Pct Auto 0.4 % (0.0-0.4); Mean Corpuscular HGB Conc 33.2 g/dl (31.0-35.0); Mean Corpuscular Hemoglobin 33.4 pg (27.0-33.0); Mean Corpuscular Volume 100.8 fL (80.0-98.0); Mean Platelet Volume 10.2 fL (9.4-12.3); Monocytes Absolute Auto 0.7 X10*3/uL (0.1-1.2); Monocytes Percent Auto 6.9 % (2-11); Neutrophils Absolute Auto 5.8 x10*3/uL (2.0-8.3); Platelet Count 235 X10*3/uL (160-400); Red Blood Count 3.65 X10*6/uL (4.20-5.50); Red Cell Distribution Width 13.2 % (11.0-16.0); White Blood Count 9.9 X10*3/uL (4.8-10.8)
[2023-11-08 17:33] LABS: Alanine Aminotransferase 34 U/L (0-31); Albumin Level 4.1 g/dL (3.5-5.0); Alkaline Phosphatase 52 U/L (39-117); Anion Gap 16 (12-20); Aspartate Amino Transferase 30 U/L (5-31); Bilirubin Total 0.4 mg/dL (0.0-1.0); Blood Urea Nitrogen 30 mg/dL (9-16); Calcium 9.5 mg/dL (8.4-10.2); Carbon Dioxide 26 mmol/L (22-29); Chloride 107 mmol/L (96-108); Estimated Glomerular Filt Rate 31; Glucose Random 78 mg/dL (60-115); Potassium 4.6 mmol/L (3.3-5.1); Sodium 144 mmol/L (135-145); Total Protein 6.5 g/dL (6.5-8.0)
== END 2023-11-08 14:18 | disposition home or self-care (01) ==
LOC: HO.LAB 14:17
PROVIDERS: PCP Nurse Practitioner Family; Visit Provider Internal Medicine Hypertension Specialist
DX: I12.9 Hypertensive chronic kidney disease with stage 1 through stage 4 chronic kidney disease, or unspecified chronic kidney disease (principal); N18.32 Chronic kidney disease, stage 3b
CPT/HCPCS: 36415; 80053; 85025; 99212

== ENCOUNTER 2023-12-11 13:56 | Outpatient (REF) | payer OTHER, SELFPAY ==
--- NOTE | ~2023-12-11 | MM_ITS ---
EXAMINATION: BONE DENSITOMETRY CLINICAL INDICATION: Low back pain, unspecified. COMPARISON: This is the patient's baseline examination. TECHNIQUE: Using a [employer] DXA System (software version: 13.1) manufactured by [employer], dual-energy x-ray absorptiometry was performed of the lumbar spine and right hip. Patient with left hip replacement. The images are of good technical quality. Summary results are attached. FINDINGS: RIGHT FEMUR, NECK: BMD 0.605 g/cm2, Z-score -1.3, T-score -3.1, osteoporosis. RIGHT FEMUR, TOTAL: BMD 0.523 g/cm2, Z-score -2.3, T-score -3.8, osteoporosis. AP SPINE L1-L3 (excluding L4): The data of L1-L4 has been changed to exclude the L4 vertebral body, because degenerative sclerosis at this level may cause overestimation of lumbar spine density. BMD 1.128 g/cm2, Z-score 1.7, T-score -0.4, normal. IDENTIFIED RISK FACTORS: Menopause, height loss, osteoporosis, renal, tobacco use (current smoker), secondary osteoporosis (chronic liver disease). HISTORY OF FRACTURE: None listed. MEDICATIONS: Calcium, vitamin D. MM/XR DEXA axial skeleton IMPRESSION: 1. DIAGNOSIS: Osteoporosis based on the lowest T-score value of -3.8 in the total femur applying World Health Organization criteria. 2. 10-YEAR FRACTURE RISK PREDICTION, FRAX: According to the guidelines, FRAX calculation should only be performed on patients in the osteopenia bone density category. Therefore, FRAX was not performed on this patient. 3. Treatment Recommendations: NOF guidelines recommend consideration for treatment in postmenopausal women and men age 50 and older presenting with the following: -A hip or vertebral (clinical or morphometric) fracture. -T-score less than or equal to -2.5 at the femoral neck or spine after appropriate evaluation to exclude secondary causes. -Low bone mass at the hip or spine and a 10-year fracture probability by FRAX of greater than or equal to 3% for hip fracture or greater than or equal to 20% for major osteoporotic fracture based on the [place] adapted WHO algorithm. 4. Other Recommendations: All treatment decisions require clinical judgment and consideration of individual patient factors, including patient preferences, comorbidities, previous drug use, risk factors not captured in the FRAX model (e.g. frailty, falls, vitamin D deficiency, increased bone turnover, interval significant decline in bone density) and possible under or overestimation of fracture risk by FRAX. Additional medical evaluation for secondary cause of low bone mineral density may be appropriate. FUTURE SCAN RECOMMENDATION: People with diagnosed cases of osteoporosis or at high risk for fracture should have regular bone mineral density tests. For patients eligible for Medicare, routine testing is allowed once every 2 years. The testing frequency can be increased to one year for patients who have rapidly progressing disease, those who are receiving or discontinuing medical therapy to restore bone mass, or have additional risk factors.
== END 2023-12-11 13:57 | disposition home or self-care (01) ==
LOC: HO.MAMMO 13:56
PROVIDERS: PCP Nurse Practitioner Family; Visit Provider Nurse Practitioner Family
DX: Z13.820 Encounter for screening for osteoporosis (principal); Z78.0 Asymptomatic menopausal state
CPT/HCPCS: 77080

== ENCOUNTER 2023-12-20 13:37 | Outpatient (REF) | payer OTHER, SELFPAY ==
--- NOTE | ~2023-12-20 | MR_ITS ---
EXAMINATION: MR LUMBAR SPINE WITHOUT CONTRAST CLINICAL INFORMATION: Postlaminectomy syndrome. Right leg pain. Low back pain. Scoliosis. COMPARISON: None. TECHNIQUE: Multiplanar, multisequence imaging was obtained. FINDINGS: VERTEBRAL BODIES AND PARASPINAL STRUCTURES: There is a moderate lumbar curvature of the lumbar spine centered at the L3-L4 level. Endplate osseous fusion changes and ventral subluxation noted the L2-3 level. No acute compression fractures identified. Multilevel endplate edematous changes are present, reactive from spondylosis, most notably at the T11-T12, L1-L2, and L3-L4 levels. Multilevel subluxations are visible, most significant within anterolisthesis at the L3-L4 level. There are chronic post laminectomy changes at L2-L3, L3-L4, and L4-L5 levels. Significant multilevel disc space narrowing evident throughout the lumbar spine. Mild chronic-appearing superior endplate cavities lateralized to the right side noted at the L1 and L2 levels. The paraspinal soft tissues are normal. The right kidney is chronically atrophic. There is partial visualization of dilatation of the central biliary ducts and CBD. Small right renal cyst visible in the imaged bony pelvis is unremarkable. The lung bases are grossly clear. CONUS MEDULLARIS AND CAUDA EQUINE: The distal cord, conus tip, and cauda equina nerve roots are normal. SPINAL LEVELS: T11-T12: Mild to moderate central canal stenosis with left lateral endplate edematous changes. Broad-based posterior disc bulge and facet arthropathy with mild central canal stenosis and severe left foraminal narrowing. T12-L1: Broad-based posterior disc bulge and hypertrophic facet arthropathy mildly encroach upon the central canal. No significant foraminal narrowing. L1-L2: Posterior subluxation and diffuse disc bulge with facet arthropathy and thickening of ligamentum flavum. Focal left lateral recess disc protrusion impresses upon the left L2 nerve root. Severe central canal stenosis and right foraminal narrowing. L2-L3: Chronic endplate osseous fusion changes as a decompressive laminectomy. Mild to moderate foraminal narrowing. L3-L4: Mild anterolisthesis and severe loss of disc height with hypertrophic facet degeneration. Despite chronic postlaminectomy changes, there is distortion of the thecal sac and moderate central canal stenosis. Severe right foraminal encroachment and bony spurring significantly compressing the right L3 nerve root. Moderate endplate edematous changes. L4-L5: Severe disc space narrowing at postlaminectomy with changes with hypertrophic facet arthropathy. No central canal stenosis. Moderate left foraminal narrowing. Desiccated disc bulge visible. L5-S1: Retrosubluxation and severe disc space narrowing with a small central disc protrusion and moderate facet arthropathy. No central canal stenosis. Bulging disc and endplate ridging encroaches upon the lateral recesses abutting the S1 nerve roots. Moderate foraminal narrowing, more so on the left side. MR/MR lumbar spine wo con IMPRESSION: Extensive multilevel spondylosis and leftward curvature of the lumbar spine with chronic postoperative changes. Severe junctional central canal stenosis at the L1-L2 level with thecal sac compression. Additional focal left lateral recess disc protrusion impressing upon the left L2 nerve root. Severe right foraminal narrowing. Mild to moderate central canal stenosis at the T11-T12 level with severe left foraminal narrowing. Mild to moderate endplate edematous changes as well. Moderate central canal stenosis, anterolisthesis, and chronic postlaminectomy changes at the L3-L4 level with severe right foraminal narrowing and bony spurring compressing the right L3 nerve root. Moderate endplate edematous changes. Electronically signed by: Nikunj Moore MD 12/20/2023 03:13 PM EDT
== END 2023-12-20 13:38 | disposition home or self-care (01) ==
LOC: HO.MRI 13:37
PROVIDERS: PCP Nurse Practitioner Family; Visit Provider Nurse Practitioner Family
DX: M96.1 Postlaminectomy syndrome, not elsewhere classified (principal); M48.061 Spinal stenosis, lumbar region without neurogenic claudication; M51.36 Other intervertebral disc degeneration, lumbar region
CPT/HCPCS: 72148

== ENCOUNTER 2023-12-27 15:09 | Outpatient (AMB) | payer OTHER, SELFPAY ==
--- NOTE | 2023-12-27 15:12 | A.OFFVIS_ITS ---
Vital Signs 3 12/27/23 15:19 Height 4 ft 10 in Weight 115 lb 1.301 oz BMI 24.0 BP 165/79 H Blood Pressure Location Lt brachial Position Sitting Pulse 67 Intake Visit Reasons: Liver disease / cyst? Intake Note: Sangita presents to in office visit today as a new patient for liver cyst. CC: Patient reports that she had an MRI of her spine and was found to have a liver cyst that is pushing against her spine. Patient reports that she usually has a lot of diarrhea and she believes she has colitis. Patient states that her mom had colitis. She also states that she was diagnosed with COPD and she coughs a lot. 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 She is referred by Keyona Knowles of [facility] primary care. PMX Smoker COPD Hypertension Osteoporosis Chronic low back pain/post-laminectomy syndrome Chronic kidney disease stage 3 Depression with anxiety * SURGICAL HISTORY left TKR lumbar laminectomy cholecytectomy left TKR * ALLERGIES: NKDA * [facility] LABS: Laboratory Tests 11/08/23 15:22 WBC 9.9 Hgb 12.2 Hct 36.8 L MCV 100.8 H MCH 33.4 H Plt Count 235 Estimated GFR 31 Total Bilirubin 0.4 AST 30 ALT 34 H Alkaline Phosphatase 52 TODAY'S VISIT She is concerned a solitary liver cyst on an MRI for her back. She was quite worried that this was something that needed to be removed. I explained that we all have anywhere from 1-4 liver cysts and that they are in fact more common in women because the estrogen driven. However, they are not removed as they are benign and surgery would cause more damage or complications solve the problem that does not exist. Given the fact that she has a mild rise in her transaminases I will do a workup to exclude any uncommon liver diseases and will get an ultrasound all of this I think will help put her mind at ease. There is no known family history of liver disease and the patient does not drink alcohol. Nevertheless she was educated on fatty liver and that the 3 things to keep her liver healthy would be limiting weight gain, controlling blood sugar should she become diabetic, and avoiding alcohol. I feel confident that she does not have any problems because I reviewed the MRI in question that was taken 3 years ago and it shows only a solitary liver cyst of 6 mm. I believe there was also quite a bit of confusion because she does have hydronephrosis and she was told that something was swollen and pressing on her back. It is more likely that this was her kidney. She was also under the impression that her liver was only functioning at 25% and again I think this is a reference to her renal function not her liver function. She also has trouble with diarrhea. She calls is colitis saying her mother had the same but this has never been dx'ed formally. She has never had a colonoscopy r/t inability to drink prep. She has diarrhea, mostly in the am as watery, it seems a bit better with eating her salad. She is s/p raimundo and her diarrhea has been since her raimundo. Start on cholestyramine bid. This is a very long appointment because she has many questions about her general health. She is very fearful of cancer a wants to know ?how his that get into the body.? I explained that cancer is not a foreign invader but rather is something that happens because of mistakes made as are cells divide as we age. She wants to know how we can detect cancer and I tell her that that is different for every organ system of the body but the short answer is to keep seeing her primary care provider as we will monitor her blood work for any changes that could be concerning. She is also counseled that whenever you have rapid weight loss without explanation or some sudden change in the body this is something she should bring to the attention of her medical providers. She also had many questions by her diagnosis of COPD. She is a smoker, but she has never had any CT scans or pulmonary function testing for this diagnosis. She says she was under the impression she just had asthma. I let her know that marker is most likely develop COPD but she would need these tests to try to ascertain whether she truly has asthma, COPD or a combination of both of these things. Either way the best thing to do is to stop smoking as this will usually have a large impact on the health of her lungs. Would also have a big impact on the health of her kidneys since this would encourage better kidney perfusion. ROV 6 weeks. [facility] Medical History (Updated 12/27/23 @ 16:46 by DUDLEY Roth) Encounter for general adult medical examination without abnormal findings Liver disease Polyarthralgia Lumbar degenerative disc disease ISSAC (generalized anxiety disorder) HTN (hypertension) Chronic back pain Renal stones Surgical History (Updated 12/27/23 @ 16:38 by DUDLEY Roth) History of left knee replacement History of left hip replacement Hx of section S/P cholecystectomy H/O laminectomy Family History Mother Colitis Maternal Uncle Cancer Family/Other Cancer Social History Household Members: Other Household Members Other:: Roommate x1 Housing: Other Housing Other:: Roommate 75 years or older and lives alone: No Alcohol intake: former 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 Patient Tobacco Use Status: Current everyday Tobacco user Tobacco use type: Cigarette Cigarettes Per Day: 6 Years Smoked: 40 e-Cigarette/Vaping Use: Currently Using Substance Use Type: Marijuana service: No Current occupational status: disabled Current occupational exposures/hazards: No Sexual orientation: Straight/Heterosexual Gender identity: Female Cognitive needs: No Hearing needs: No Vision needs: Yes Review of Systems Const Denies fatigue, Denies fever(s), Denies night sweats, Denies poor appetite and Denies weight loss ENT Reports Normal hearing present, Denies dental pain, Denies dysphagia, Denies hearing loss, Reports hoarseness, Denies mouth pain, Denies odynophagia, Denies throat swelling, Denies tongue swelling and Reports other (Dentition adequate) Card Reports no additional complaints Resp Reports cough and Reports wheezing GI Details: Denies abdominal pain, Denies melena, Denies bloating, Denies hematochezia, Denies constipation, Denies GI cramping, Denies dysphagia, Denies excessive flatus, Denies early satiety, Denies heartburn, Reports diarrhea, Denies nausea, Denies odynophagia, Denies vomiting and Denies hematemesis Musc Reports back pain and Reports arthralgias Skin/Breast Denies pruritus, Denies lesions, Denies rash and Denies jaundice Neuro Reports Normal hearing present and Denies Abnormal speech present Psych Reports anxiety, Reports depression, Denies homicidal ideation and Denies suicidal ideation Endo Denies fatigue Aller/Immun Denies throat swelling, Denies tongue swelling and Reports wheezing Physical Exam Vital Signs: Last Vital Signs Pulse 67 12/27/23 15:19 BP 165/79 H 12/27/23 15:19 BMI result Body Mass Index 24.0 Const General: cooperative, no acute distress, well developed and well groomed Nutritional Appearance: well nourished and thin Orientation/consciousness: oriented to person, oriented to place and oriented to time Limitations: No language barrier HEENT Head: Yes normocephalic and Yes atraumatic Eyes General: appearance normal, both eyes and all related structures Pupils: Equal, round and reactive pupils present Neck Neck: Yes normal visual inspection and Yes no lymphadenopathy Thyroid: Thyroid normal Resp Effort & Inspection: normal respiratory effort and able to speak in complete sentences Auscultation: wheezes and diminished lung sounds bilateral in the lower lung lala Cardio Rate: regular rate Rhythm: regular rhythm Heart sounds: Normal, physiologic split S2 sound present Peripheral pulses: radial pulses present and posterior tibial pulses present GI Inspection: No distended, No Abdominal panniculus present, Yes scar and Yes striae Palpation (GI): Soft to palpation, nontender, no guarding, not rigid and No hepatosplenomegaly present Percussion: Yes normal to percussion Auscultation: normal bowel sounds Rectal Exam - Female: deferred Abdomen image: 2 1. surgical scars 2. 3. Skin General skin exam: no rashes or lesions noted, turgor normal, skin not dry, no jaundice, No spider nevi and no striae Rashes: no rashes Nails: normal Neuro General: oriented to person, oriented to place and oriented to time Cranial nerves: Yes Equal, round and reactive pupils present and Yes Normal hearing present Speech: No Abnormal speech present Extrem General: Yes normal to inspection, No clubbing, No cyanosis and No edema Psych Appearance: grossly normal and well kempt Mental Status: mental status grossly normal Speech and movement: Pressured speech present Affect: normal affect Attitude: cooperative Thought process: Circumstantial thought process present and not confabulating Thought content: Normal thought content present Insight: Limited insight present (Psych) Judgement: Limited judgement present (Psych) Assessment & Plan Assessment & Plan (1) Transaminitis: Code(s): R74.01 - Elevation of levels of liver transaminase levels Category: Medical (2) Post-cholecystectomy syndrome: Code(s): K91.5 - Postcholecystectomy syndrome Category: Medical (3) Diarrhea: Code(s): R19.7 - Diarrhea, unspecified Category: Medical (4) COPD (chronic obstructive pulmonary disease): Comment: controlled on Symbicort and MARIBELL Continue; declines referral to Pulm or Lung Cancer screening Smoking cessation advised Code(s): J44.9 - Chronic obstructive pulmonary disease, unspecified Category: Medical Qualifiers: COPD type: chronic bronchitis Chronic bronchitis type: simple Q ualified Code(s): J41.0 - Simple chronic bronchitis (5) Current tobacco use: Comment: smoking cessation given Code(s): Z72.0 - Tobacco use Category: Medical (6) Colonoscopy refused: Comment: Due to inability to tolerate any of the preps as she says she has tried them all in the past there is no known family history of colon cancer Code(s): Z53.20 - Procedure and treatment not carried out because of patient's decision for unspecified reasons Category: Medical Plan She is concerned a solitary liver cyst on an MRI for her back. She was quite worried that this was something that needed to be removed. I explained that we all have anywhere from 1-4 liver cysts and that they are in fact more common in women because the estrogen driven. However, they are not removed as they are benign and surgery would cause more damage or complications solve the problem that does not exist. Given the fact that she has a mild rise in her transaminases I will do a workup to exclude any uncommon liver diseases and will get an ultrasound all of this I think will help put her mind at ease. There is no known family history of liver disease and the patient does not drink alcohol. Nevertheless she was educated on fatty liver and that the 3 things to keep her liver healthy would be limiting weight gain, controlling blood sugar should she become diabetic, and avoiding alcohol. I feel confident that she does not have any problems because I reviewed the MRI in question that was taken 3 years ago and it shows only a solitary liver cyst of 6 mm. I believe there was also quite a bit of confusion because she does have hydronephrosis and she was told that something was swollen and pressing on her back. It is more likely that this was her kidney. She was also under the impression that her liver was only functioning at 25% and again I think this is a reference to her renal function not her liver function. She also has trouble with diarrhea. She calls is colitis saying her mother had the same but this has never been dx'ed formally. She has never had a colonoscopy r/t inability to drink prep. She has diarrhea, mostly in the am as watery, it seems a bit better with eating her salad. She is s/p raimundo and her diarrhea has been since her raimundo. Start on cholestyramine bid. This is a very long appointment because she has many questions about her general health. She is very fearful of cancer a wants to know ?how his that get into the body.? I explained that cancer is not a foreign invader but rather is something that happens because of mistakes made as are cells divide as we age. She wants to know how we can detect cancer and I tell her that that is different for every organ system of the body but the short answer is to keep seeing her primary care provider as we will monitor her blood work for any changes that could be concerning. She is also counseled that whenever you have rapid weight loss without explanation or some sudden change in the body this is something she should bring to the attention of her medical providers. She also had many questions by her diagnosis of COPD. She is a smoker, but she has never had any CT scans or pulmonary function testing for this diagnosis. She says she was under the impression she just had asthma. I let her know that marker is most likely develop COPD but she would need these tests to try to ascertain whether she truly has asthma, COPD or a combination of both of these things. Either way the best thing to do is to stop smoking as this will usually have a large impact on the health of her lungs. Would also have a big impact on the health of her kidneys since this would encourage better kidney perfusion. ROV 6 weeks. Orders: Orders 2 Alpha Fetoprotein Today R74.01 - Elevation of levels of liver transaminase levels GAGE Reflex Titer and Pattern Today R74.01 - Elevation of levels of liver transaminase levels Ferritin Today R74.01 - Elevation of levels of liver transaminase levels HIV Ab/Ag Today R74.01 - Elevation of levels of liver transaminase levels C Reactive Protein Today K91.5 - Postcholecystectomy syndrome, R74.01 - Elevation of levels of liver transaminase levels US abdomen complete Today R74.01 - Elevation of levels of liver transaminase levels Smooth Muscle Antibody Today R74.01 - Elevation of levels of liver transaminase levels Mitochondrial Antibody Today R74.01 - Elevation of levels of liver transaminase levels Hepatitis A,B,C Profile Today R74.01 - Elevation of levels of liver transaminase levels Liver Fibrosis Pnl Today R74.01 - Elevation of levels of liver transaminase levels Rast Allergen Today K91.5 - Postcholecystectomy syndrome, R74.01 - Elevation of levels of liver transaminase levels Calprotectin, Fecal Today K91.5 - Postcholecystectomy syndrome, R74.01 - Elevation of levels of liver transaminase levels Pancreatic Elastase-1 Today K91.5 - Postcholecystectomy syndrome, R74.01 - Elevation of levels of liver transaminase levels Medications: New 2 cholestyramine-aspartame 4 gram (Cholestyramine Light) administer w/meal; avoid other meds within 1hr before or 4-6hr after dose 4 grams PO BID 60 ea 6RF K91.5 - Postcholecystectomy syndrome Coding Level of Care Code New Pt Level 4 (15118) Diagnoses Transaminitis R74.01 Post-cholecystectomy syndrome K91.5 Diarrhea R19.7 Simple chronic bronchitis J41.0 COPD type: chronic bronchitis Chronic bronchitis type: simple Current tobacco use Z72.0 Colonoscopy refused Z53.20 Time Spent (min) 50
[2023-12-27 15:19] VITALS: BP 165/79; PULSE 67; BMI 24.0
== END 2023-12-27 16:23 | disposition home or self-care (01) ==
PROVIDERS: PCP Nurse Practitioner Family; Visit Provider Nurse Practitioner
DX: R74.01 Elevation of levels of liver transaminase levels (principal); K91.5 Postcholecystectomy syndrome; R19.7 Diarrhea, unspecified; J41.0 Simple chronic bronchitis; Z72.0 Tobacco use; Z53.20 Procedure and treatment not carried out because of patient's decision for unspecified reasons
CPT/HCPCS: 99204

== ENCOUNTER → 2023-12-27 15:09 | Outpatient (BNVA) | payer OTHER, SELFPAY | PROVIDERS: PCP Nurse Practitioner Family; Visit Provider Nurse Practitioner | DX: R19.7 Diarrhea, unspecified (principal); K74.01 Hepatic fibrosis, early fibrosis; K91.5 Postcholecystectomy syndrome; J41.0 Simple chronic bronchitis; Z72.0 Tobacco use; Z53.20 Procedure and treatment not carried out because of patient's decision for unspecified reasons | CPT/HCPCS: 99202 ==

== ENCOUNTER 2023-12-28 12:47 | Outpatient (AMB) | payer OTHER, SELFPAY ==
--- NOTE | 2023-12-28 13:23 | A.SPINEOV_ITS ---
Intake Visit Reasons: spinal stenosis Intake Note: Ms. Umana is here today c/o low back and neck pain. Respiratory Care Practitioner Required: No Allergies No Known Allergies Allergy (Verified 12/27/23 15:49) Assessment & Plan Assessment & Plan (1) Scoliosis of lumbar region due to degenerative disease of spine in adult: Code(s): M41.56 - Other secondary scoliosis, lumbar region Category: Medical (2) Lumbar stenosis with neurogenic claudication: Code(s): M48.062 - Spinal stenosis, lumbar region with neurogenic claudication Category: Medical Plan Dear colleague Thank you for referring Sangita Umana to the office today with a chief complaint of back pain radiating down both legs. HPI: This 68-year-old female is suffering from back pain radiating down both legs with walking and standing. Sitting improves the pain. Indication she stands in a flexed position to avoid the pain. She also noticed that she is walking with a flexed position to alleviate the symptoms. She denies weakness. She had multiple cortisone injections done in the past and physical therapy. She also had a lumbar laminectomy done 17 years ago. She used to be on oxycodone for pain control. She was seen by our pain management team and referred to me for surgical consultation. The note mentioned that she has a grade 3 chronic kidney disease but I reviewed her recent kidney function values which are nearly normal. PMH: Tubal ligation, 2 sections, left knee replacement, left hip replacement, cholecystectomy, asthma, osteopenia Medications: Tylenol, albuterol, gabapentin, duloxetine, a paraprotein, amlodipine, metoprolol, tizanidine, tramadol p.r.n. Allergies: NKDA Social history: Lives with a roommate. 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 Smokes a half pack a day. Physical Exam: Pleasant female. 5 in incision in the lumbar spine well healed. She stands in a flexed position. No neurological deficits for motor sensation or reflexes. Radiological Studies: MRI done at [facility] shows a lumbar degenerative scoliosis with the apex at L3-4 and a grade 2 spondylolisthesis at this level causing spinal stenosis and severe foraminal stenosis. There is an auto fusion of L2-L3 and L5-S1 and a possible auto fusion of L4-5. An x-ray of the lumbar spine confirms the lumbar degenerative scoliosis. A bone scan shows normal values for the spine and osteopenia for the hips. Impression/Plan: This 68-year-old female suffering from back pain with neurogenic claudication due to a lumbar degenerative scoliosis with the apex at L3-4 and a grade 2 spondylolisthesis. These radiological changes are most l ikely result of a previous multilevel lumbar laminectomy. The treatment for this would be to minimally invasive correct the lumbar degenerative scoliosis through an oblique lumbar interbody fusion L3-4 and possibly L4-5 if this level is not auto fused. I would like to obtain a CT of the lumbar spine for the purpose to see which levels are auto fused. She will return to my office if she wants to proceed with surgery. Thank you for allowing me to participate in your patients care. total time spent was 50 minutes in counseling ,coordination of plan, personal review of imaging, surgical decision making and subsequent plan Ming Casanova MD, PhD [facility] Trained Neurosurgeon Director, [facility] Coding Level of Care Code New Pt Level 4 (13902) Diagnoses Scoliosis of lumbar region due to degenerative disease of spine in adult M41.56 Lumbar stenosis with neurogenic claudication M48.062
== END 2023-12-28 14:33 | disposition home or self-care (01) ==
PROVIDERS: PCP Nurse Practitioner Family; Referring Provider Nurse Practitioner Family; Visit Provider Neurological Surgery
DX: M41.56 Other secondary scoliosis, lumbar region (principal); M48.062 Spinal stenosis, lumbar region with neurogenic claudication
CPT/HCPCS: 99204

== ENCOUNTER → 2023-12-28 12:47 | Outpatient (BNVA) | payer OTHER, SELFPAY | PROVIDERS: PCP Nurse Practitioner Family; Visit Provider Neurological Surgery | DX: M48.062 Spinal stenosis, lumbar region with neurogenic claudication (principal); M41.56 Other secondary scoliosis, lumbar region | CPT/HCPCS: 99202 ==

== ENCOUNTER 2024-01-03 14:22 | Outpatient (AMB) | payer OTHER, SELFPAY ==
--- NOTE | 2024-01-03 14:35 | MHC.OFFVIS ---
Vital Signs 01/03/24 14:39 Height 4 ft 10.53 in Weight 116 lb 13.52 oz BMI 24.0 BP 152/78 H Blood Pressure Location Rt brachial Position Sitting Pulse 71 Pulse Source Pulse Oximeter Intake Visit Reasons: Osteoporosis-confirmed Intake Note: New patient present today for Osteoporosis, internally referred by PCP. DEXA was done on 12/11/23 at [facility]. Consumer Experience Consultant Required: No Accompanied by: Self / Same As Patient Allergies No Known Allergies Allergy (Verified 01/03/24 14:40) HPI Comments Details: 68 YO Female with is seen in consultation at the request of PCP for Osteoporosis. First diagnosed in just diagnosed . Not Received treatment in the past No history of pathologic fracture or ONJ. Has several servings of dietary calcium per day in the form of cheese . Takes Calcium supplement ? mg daily in divided doses. Takes ? IU of Vitamin D daily. Denies ever using PPI, anticoagulant, antiepileptic but does take glucocorticoid medication. 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 Not UTD on dental cleanings and sees dentist every 6 months. Has planned upcoming dental work or extractions in near future . DXA dated 12/11/23:FINDINGS: RIGHT FEMUR, NECK: BMD 0.605 g/cm2, Z-score -1.3, T-score -3.1, osteoporosis. RIGHT FEMUR, TOTAL: BMD 0.523 g/cm2, Z-score -2.3, T-score -3.8, osteoporosis. AP SPINE L1-L3 (excluding L4): The data of L1-L4 has been changed to exclude the L4 vertebral body, because degenerative sclerosis at this level may cause overestimation of lumbar spine density. BMD 1.128 g/cm2, Z-score 1.7, T-score -0.4, normal. IDENTIFIED RISK FACTORS: Menopause, height loss, osteoporosis, renal, tobacco use (current smoker), secondary osteoporosis (chronic liver disease). HISTORY OF FRACTURE: None listed. MEDICATIONS: Calcium, vitamin D. MM/XR DEXA axial skeleton IMPRESSION: 1. DIAGNOSIS: Osteoporosis based on the lowest T-score value of -3.8 in the total femur applying World Health Organization criteria. Labs: [facility] Medical History (Updated 12/28/23 @ 14:07 by Ming Casanova MD, PhD) Encounter for general adult medical examination without abnormal findings Liver disease Polyarthralgia Lumbar degenerative disc disease ISSAC (generalized anxiety disorder) HTN (hypertension) Chronic back pain Renal stones Surgical History History of left knee replacement History of left hip replacement Hx of section S/P cholecystectomy H/O laminectomy Family History Mother Colitis Maternal Uncle Cancer Family/Other Cancer Social History Household Members: Other Household Members Other:: Roommate x1 Housing: Other Housing Other:: Roommate 75 years or older and lives alone: No Alcohol intake: former 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 Absence of blue sclera. Absence of kyphosis. Thyroid gland is of nl size and weighs 15 gms. There are no thyroid nodules palpated. Lungs CTA. Heart S1 S2 Reg R/R Abdominal exam benign. Muscle strength 5/5 . Examination of spine reveals absence of tenderness on palpation Assessment & Plan Assessment & Plan (1) Osteoporosis: Code(s): M81.0 - Age-related osteoporosis without current pathological fracture Category: Medical Plan: This is a 68-year-old white female with a history of osteoporosis moderate to severe in the setting of CKD stage 3 B. rule out secondary causes Plan is to check a phosphorus, 25 hydroxy vitamin-D, 24 hour urine for calcium and creatinine, SPEP, urine immunofixation. Will ensure 1200 mg of calcium and 2000-units of vitamin D3. Assuming secondary workup is negative would strongly consider an anabolic agent like Evenity initially which is not contraindicated with CKD proceeded perhaps by Prolia. Would not use an anti resorptive agent initially because alkaline phosphatase and PTH are low normal which could suggest the possibility of adynamic bone. Orders: Orders Phosphorus Today M81.0 - Age-related osteoporosis without current pathological fracture Vitamin D 25-OH Total Today M81.0 - Age-related osteoporosis without current pathological fracture Calcium, 24 Hr Ur Today M81.0 - Age-related osteoporosis without current pathological fracture Creatinine, 24 Hr Group Today M81.0 - Age-related osteoporosis without current pathological fracture Protein Electrophoresis, Serum Today M81.0 - Age-related osteoporosis without current pathological fracture Immunofixation, Random Urine Today M81.0 - Age-related osteoporosis without current pathological fracture Coding Level of Care Code New Pt Level 4 (65694) Diagnoses Osteoporosis M81.0
[2024-01-03 14:39] VITALS: BP 152/78; PULSE 71; BMI 24.0
== END 2024-01-03 16:06 | disposition home or self-care (01) ==
PROVIDERS: PCP Nurse Practitioner Family; Visit Provider Internal Medicine Endocrinology, Diabetes & Metabolism
DX: M81.0 Age-related osteoporosis without current pathological fracture (principal)
CPT/HCPCS: 99204

== ENCOUNTER → 2024-01-03 14:22 | Outpatient (BNVA) | payer OTHER, SELFPAY | PROVIDERS: PCP Nurse Practitioner Family; Visit Provider Internal Medicine Endocrinology, Diabetes & Metabolism | DX: M81.0 Age-related osteoporosis without current pathological fracture (principal); N18.32 Chronic kidney disease, stage 3b; Z79.620 Long term (current) use of immunosuppressive biologic | CPT/HCPCS: 99202 ==

== ENCOUNTER 2024-02-02 13:38 | Emergency (ER) | payer OTHER, SELFPAY ==
--- NOTE | ~2024-02-02 | XR_ITS ---
EXAMINATION: XR FOOT, RIGHT CLINICAL INFORMATION: Pain and swelling of the calcaneus migrating to the medial aspect of the ankle COMPARISON: None available. TECHNIQUE: AP, lateral, and oblique views of the right foot. FINDINGS: Mild midfoot osteoarthritis. Bones are osteopenic. No acute fractures or dislocations. Joint spaces are preserved. Acute please tendon calcifications. Soft tissue structures are within normal limits. XR/XR foot RT min 3V IMPRESSION: No acute osseous abnormality of the right foot. Mild midfoot osteoarthritis. Electronically signed by: Darryl Martin DO 02/02/2024 03:00 PM EDT
[2024-02-02 13:40] VITALS: BP 107/76; PULSE 84; RESP 20; TEMP 37.4; O2SAT 98; BMI 24.7
--- NOTE | 2024-02-02 13:44 | ED.GENADULT ---
HPI - General Adult General Chief complaint: Extremity Injury, Lower Stated complaint: R foot pain , no inj Time Seen by Provider: 02/02/24 14:23 Source: patient Mode of arrival: ambulatory Limitations: no limitations History of Present Illness ED Provider: Karime Gómez APRN HPI narrative: 68 yo female with history of COPD, HTN, chronic back pain taking cymbalta, gabapentin and tramadol for pain as needed presents to the ER with complaints right heel pain since yesterday with no known injury or trauma. She reports she stepped out of bed yesterday and noticed immediate pain in her right heel. She did have a scab from a mosquito bite which she removed a few days ago. She noticed today redness/swelling and more pain. No fever, chills, numbness, tingling. Patient states No one will give me pain medicine, my doctor gave me 100mg of tramadol but this doesn't work, I've driven all the way from [place] to here and saw different doctors and no one will give me pain medicine. Related Data Home Medications ?Medication ?Instructions ?Recorded ?Confirmed acetaminophen 650 mg 650 mg PO Q12H 12/27/23 tablet,extended release (Tylenol Arthritis Pain) amlodipine 2.5 mg tablet 2.5 mg PO DAILY 12/27/23 gabapentin 100 mg capsule 100 mg PO TID 12/27/23 tizanidine 2 mg capsule 2 mg PO Q8H PRN 12/27/23 tramadol 50 mg tablet 50 mg PO BID PRN 12/27/23 Previous Rx's ?Medication ?Instructions ?Recorded budesonide-formoterol HFA 160 2 inh inhalation BID #10.2 grams 08/20/23 mcg-4.5 mcg/actuation aerosol inhaler (Symbicort) diclofenac sodium 1 % topical gel 2 g topical QID PRN pain #100 grams 08/20/23 duloxetine 60 mg capsule,delayed 60 mg PO DAILY #90 caps 08/20/23 release montelukast 10 mg tablet 10 mg PO DAILY #90 tabs 08/20/23 ipratropium 0.5 mg-albuterol 3 mg 3 ml inhalation Q6H PRN shortness 10/02/23 (2.5 mg base)/3 mL nebulization of breath or wheezing #180 mL soln metoprolol succinate 25 mg 25 mg PO DAILY #90 tabs 11/12/23 tablet,extended release 24 hr cholestyramine-aspartame 4 gram 4 g PO BID #60 ea 12/27/23 oral powder for susp in a packet (Cholestyramine Light) albuterol sulfate 90 mcg/actuation 2 puff inhalation Q4H PRN 01/25/24 aerosol inhaler shortness of breath or wheezing #8.5 grams cephalexin 500 mg capsule 500 mg PO BID #14 caps 02/02/24 Allergies Allergy/AdvReac Type Severity Reaction Status Date / Time No Known Allergies Allergy Verified 02/02/24 13:46 Review of Systems Review of Systems: Yes all other systems are reviewed and are negative Constitutional: Constitutional: Reports no additional constitutional complaints, Denies body ache(s), Denies chills, Denies fever(s), Denies headache(s) and Denies weakness Eyes: Eyes: Reports no additional eye complaints and Denies change in vision ENT: Reports system reviewed and no additional complaints, except as documented, Denies dizziness, Denies headache(s), Denies nasal congestion, Denies nasal discharge and Denies neck pain Cardiovascular: Cardiovascular: Reports no additional cardiovascular complaints, Denies chest pain, Denies leg edema and Denies dyspnea Respiratory: Respiratory: Reports no additional respiratory complaints, Denies cough and Denies dyspnea Gastrointestinal: Gastrointestinal: Reports no additional gastrointestinal complaints, Denies abdominal pain, Denies diarrhea, Denies nausea and Denies vomiting Genitourinary: Genitourinary: Reports no additional female genitourinary complaints and Denies urinary incontinence Musculoskeletal: Musculoskeletal: Reports no additional musculoskeletal complaints, Denies back pain, Reports arthralgias, Denies joint swelling, Denies neck pain, Denies numbness and Denies tingling Integumentary/Breasts: Skin/Breast: Reports system reviewed and no additional complaints, except as docu, Reports swelling, Reports erythema and Denies rash Neurologic: Reports system reviewed and no additional complaints, except as documented, Denies Abnormal speech present, Denies dizziness, Denies headache(s), Denies numbness, Denies tingling and Denies weakness PMFSH Past Medical History Attestation statement: The following information was validated with the patient. Source: old records reviewed and nursing notes reviewed Medical History Encounter for general adult medical examination without abnormal findings Liver disease Polyarthralgia Lumbar degenerative disc disease ISSAC (generalized anxiety disorder) HTN (hypertension) Chronic back pain Renal stones Surgical History History of left knee replacement History of left hip replacement Hx of section S/P cholecystectomy H/O laminectomy Family History Family History Mother Colitis Maternal Uncle Cancer Family/Other Cancer Social History Social History Household Members: Other Household Members Other:: Roommate x1 Housing: Other Housing Other:: Roommate Alcohol intake: former 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 Patient Tobacco Use Status: Current everyday Tobacco user Tobacco use type: Cigarette Cigarettes Per Day: 6 Years Smoked: 40 e-Cigarette/Vaping Use: Currently Using Substance Use Type: Marijuana Advance Directives: No Advance Directives Information Provided: Yes Do you have a plan to hurt others: No Plan service: No Current occupational status: disabled Current occupational exposures/hazards: No Sexual orientation: Straight/Heterosexual Gender identity: Female Cognitive needs: No Hearing needs: No Vision needs: Yes Physical Exam ED Vital Signs: Vital Signs - 24 hr 02/02/24 13:40 02/02/24 15:23 Temperature 99.3 F 99.3 F Pulse Rate 84 84 Respiratory Rate 20 20 Blood Pressure 107/76 107/76 Pulse Oximetry 98 98 Oxygen Delivery Method Room Air Room Air BMI result Body Mass Index 24.7 Const General: cooperative, healthy appearing, comfortable and no acute distress Orientation/consciousness: patient oriented x3 Limitations: no limitations HENMT Head: Yes normal to inspection Ears: hearing grossly normal bilaterally General nose exam: Normal external nose present Face and sinus: Yes normal facial exam Mouth: Normal oral and palatal mucosa present Throat: Yes posterior oropharynx normal Eyes General: appearance normal, both eyes and all related structures Pupils: Equal, round and reactive pupils present Neck Neck: Yes normal visual inspection Chest Chest palpation & inspection: normal inspection of the chest Resp Effort & Inspection: normal respiratory effort Auscultation: clear to auscultation bilaterally Cardio Rate: regular rate Rhythm: regular rhythm Peripheral pulses: Peripheral pulses 2+ throughout GI Inspection: Yes normal to inspection Palpation (GI): Soft to palpation and nontender Auscultation: normal bowel sounds Back/Spine/Pelvis Thoracic/Lumbar Spine: thoracic and lumbar spine normal to inspection Skin General skin exam: no rashes or lesions noted Neuro General: patient oriented x3, no focal motor deficits and normal sensation to monofilament Cranial nerves: Yes Equal, round and reactive pupils present Cognition (Neuro): normal cognition Speech: No Abnormal speech present Gait exam (Neuro): Normal gait present Motor exam (neuro): 5/5 motor strength present throughout Extrem Other: ON the inner aspect of the right heel there is a 4cm x 4cm sized area of redness, swelling and warmth with an abrasion just lateral to this. It is not circumferential. FROM. CMS intact distally. It is tender to palpation General: Yes normal to inspection Course Course Course Narrative: RME performed by Isidra Chand PA-C. Patient is a 68 year old assigned female at presenting to the emergency department with right heel pain. Patient states she stepped out of bed yesterday and immediately had a lot of pain in her right heel that shoots up her right calf. Detailed physical exam and review of systems are deferred to the director of infection prevention. Imaging ordered. Patient placed back in the waiting room pending room availability and results. Reevaluation(s) Reevaluation #1: X-ray show some mild arthritis. Exam is consistent with mild cellulitis. Patient be treated with an oral antibiotic. Reviewed supportive measures at home such as warm soaks or compresses, elevation and compression wrap as well as follow up outpatient with her primary care doctor. Recommend that she take her current medications to continue to manage her pain. ?medication seeking behavior. Reviewed worrisome signs/symptoms with patient and when to seek additional care. Comfortabe with discharge home. Medical Decision Making Medical Decision Making MDM Narrative: 68 yo female with history of COPD, HTN, chronic back pain taking cymbalta, gabapentin and tramadol for pain as needed presents to the ER with complaints right heel pain since yesterday with no known injury or trauma. She reports she stepped out of bed yesterday and noticed immediate pain in her right heel. She did have a scab from a mosquito bite which she removed a few days ago. She noticed today redness/swelling and more pain. No fever, chills, numbness, tingling. Patient states No one will give me pain medicine, my doctor gave me 100mg of tramadol but this doesn't work, I've driven all the way from [place] to here and saw different doctors and no one will give me pain medicine. ON the inner aspect of the right heel there is a 4cm x 4cm sized area of redness, swelling and warmth with an abrasion just lateral to this. It is not circumferential. FROM. CMS intact distally. It is tender to palpation ?mild cellulitis. Will review x-ray ordered from triage Differential Diagnosis Differential Diagnoses: The differential diagnosis associated with the presentation includes Cellulitis, arthritis, strain, sprain, plantar fasciitis. Low suspicion for fracture, dislocation, vascular injury, DVT, septic joint based on clinical exam in conjunction with radiology findings, Admission/Observation Consideration of admission/observation: Escalation of care including admission/observation considered Low suspicion for fracture, dislocation, vascular injury, DVT, septic joint requiring advanced imaging, urgent orthopedic consultation Independent Interpretation I performed an independent interpretation of an: Plain X-Ray Interpretation: I independently viewed the x-ray and agree with the radiology report Radiology Impression Discussion of test interpretation with radiology: I have reviewed the radiologist's reading. Radiologist Impression: [address] [address] XRay Report Signed Patient: Sangita Umana MR#: [id number] : 1955 Acct:[id number] Age/Sex: 68 / F ADM Date: 02/02/24 Loc: .ED Attending Dr: Ordering Physician: Isidra Chand Date of Service: 02/02/24 Procedure(s): XR foot RT min 3V Accession Number(s): [id number] cc: Isidra Chand; Keyona Knowles [employer]IC[employer] TRAINER-BC~ EXAMINATION: XR FOOT, RIGHT CLINICAL INFORMATION: Pain and swelling of the calcaneus migrating to the medial aspect of the ankle COMPARISON: None available. TECHNIQUE: AP, lateral, and oblique views of the right foot. FINDINGS: Mild midfoot osteoarthritis. Bones are osteopenic. No acute fractures or dislocations. Joint spaces are preserved. Acute please tendon calcifications. Soft tissue structures are within normal limits. XR/XR foot RT min 3V IMPRESSION: No acute osseous abnormality of the right foot. Mild midfoot osteoarthritis. Electronically signed by: Darryl Martin DO 02/02/2024 03:00 PM EDT RP Tests considered The following testing was considered but not selected: Low suspicion for fracture, dislocation, vascular injury, DVT, septic joint requiring advanced imaging Prescription Management I considered prescription management with: Antibiotic Discharge Plan Discharge Clinical Impression: Cellulitis Patient Disposition: Home, Self-Care Instructions: Cellulitis (ED), Warm Compress or Soak (ED) Additional Instructions: Continue your home medications Apply the Gulshan wrap for comfort as tolerated Take the antibiotics as prescribed Return for increasing redness, swelling, fevers or chills Prescriptions: New cephalexin 500 mg capsule 500 mg PO BID Qty: 14 0RF No Action ipratropium-albuterol 0.5 mg-3 mg(2.5 mg base)/3 mL solution for nebulization 3 ml inhalation Q6H PRN (Reason: shortness of breath or wheezing) Qty: 180 0RF metoprolol succinate 25 mg tablet extended release 24 hr 25 mg PO DAILY Qty: 90 0RF albuterol sulfate 90 mcg/actuation HFA aerosol inhaler 2 puff inhalation Q4H PRN (Reason: shortness of breath or wheezing) Qty: 8.5 1RF diclofenac sodium 1 % gel 2 g topical QID PRN (Reason: pain) Qty: 100 3RF Rx Instructions: apply to joints as needed. budesonide-formoterol [Symbicort] 160-4.5 mcg/actuation HFA aerosol inhaler 2 inh inhalation BID Qty: 10.2 6RF duloxetine 60 mg capsule,delayed release(DR/EC) 60 mg PO DAILY Qty: 90 1RF montelukast 10 mg tablet 10 mg PO DAILY Qty: 90 2RF tramadol 50 mg tablet 50 mg PO BID PRN acetaminophen [Tylenol Arthritis Pain] 650 mg tablet extended release 650 mg PO Q12H tizanidine 2 mg capsule 2 mg PO Q8H PRN gabapentin 100 mg capsule 100 mg PO TID amlodipine 2.5 mg tablet 2.5 mg PO DAILY cholestyramine-aspartame [Cholestyramine Light] 4 gram powder in packet 4 g PO BID Qty: 60 6RF Rx Instructions: administer w/meal; avoid other meds within 1hr before or 4-6hr after dose Interventions: ED Discharge Assessment Last Done: 02/02/24 15:23 Discharge Date/Time: 02/02/24 15:27 Print Language: Persian
--- NOTE | 2024-02-02 14:11 | PC.NURSE ---
patient a&ox3, c/o 9-02/06 rt heel pain, mild redness noted to that area, pt states she woke this morning and stood up and the pain was described as if she stepped on a nail or a dog bit her. pt states she has chronic 7/10 generalized body pain but her heel pain is worse, pt also stated that she is not able to take most pain medications because of her kidneys and liver. xray has been performed- pt awaiting results and to be seen by provider
[2024-02-02 15:23] VITALS: BP 107/76; PULSE 84; RESP 20; TEMP 37.4; O2SAT 98
--- NOTE | 2024-02-02 15:25 | PC.NURSE ---
pt ankle wrapped with jeremi wrap. upon attempting to discharge patient became irritable and was ranting about not getting proper treatment from pain management doctors that she has seen from [facility] to [facility], pt stated she has been to many providers none offer pills for her pain and she needs pills. this nurse asked the patient what we could do for her currently regarding her foot pt stated nothing, I have chronic pain all over my body pt refused repeat vitals and refused to sign paper work upon discharge.
== END 2024-02-02 15:27 | disposition home or self-care (01) ==
PROVIDERS: Emergency Provider Internal Medicine; PCP Nurse Practitioner Family
DX: L03.115 Cellulitis of right lower limb (principal); M79.671 Pain in right foot
CPT/HCPCS: 73630; 99283

== ENCOUNTER 2024-02-08 10:49 | Outpatient (REF) | payer OTHER, SELFPAY ==
--- NOTE | ~2024-02-08 | US_ITS ---
EXAMINATION: US ABDOMEN COMPLETE CLINICAL INFORMATION: Elevation of levels of liver transaminase levels. COMPARISON: Ultrasound renal 10/05/2023. TECHNIQUE: Real-time imaging of the abdominal viscera. FINDINGS: PANCREAS: Normal. ABDOMINAL AORTA: The proximal, mid, and distal segments are normal in caliber. INFERIOR VENA CAVA: Visualized portions are normal. LIVER: The liver is normal in size. The liver contour is normal. Parenchymal echogenicity is normal. No focal hepatic lesion. There is mild central bile duct dilatation which can be seen after cholecystectomy. GALLBLADDER: Surgically absent. COMMON BILE DUCT: Common bile duct is dilated postcholecystectomy measuring 1.4 cm in diameter. No distal obstructing lesion is seen. RIGHT KIDNEY: No hydronephrosis or renal calculi. The kidney measures 6.2 cm in maximum dimension. Multiple benign Bosniak class I renal cysts are noted, the largest at the lower pole measuring 1.4 cm, which require no additional imaging or follow-up. No solid renal masses are seen. LEFT KIDNEY: No hydronephrosis. No renal calculi or focal parenchymal lesions. The kidney measures 10.1 cm in maximum dimension. SPLEEN: Normal. The spleen measures 7.2 cm in maximum dimension. FREE FLUID: None. US/US abdomen complete IMPRESSION: No significant abnormality is seen. Prominent intrahepatic bile ducts and dilated common bile duct may be seen after cholecystectomy. If patient's elevated LFTs persist, MRCP may be useful for further evaluation. Electronically signed by: Lorenzo Campbell MD 02/12/2024 10:02 PM EDT
[2024-02-08 12:10] LABS: Anion Gap 13 (12-20); Blood Urea Nitrogen 20 mg/dL (9-16); Calcium 9.9 mg/dL (8.4-10.2); Carbon Dioxide 27 mmol/L (22-29); Chloride 102 mmol/L (96-108); Estimated Glomerular Filt Rate 36; Potassium 3.7 mmol/L (3.3-5.1); Sodium 138 mmol/L (135-145)
[2024-02-08 12:18] LABS: C Reactive Protein 0.48 mg/dL (< or = 0.50); Phosphorus 3.2 mg/dL (2.7-4.5)
[2024-02-08 12:25] LABS: Vitamin D 25-OH Total 46.1 ng/mL (>30)
[2024-02-08 12:30] LABS: Ferritin 63 ng/mL (10-250)
[2024-02-08 12:37] LABS: HBS Num1 0.48 mIU/mL (0-7.99); HBc Num1 0.13 S/CO (0.00-0.79); HBsAGNum1 0.27 S/CO (0.00-0.99); HIV AB/AG Nonreactive (Nonreactive); HIV Num 1 0.06 S/CO (0.00-0.99); Hepatitis A Antibody IgM 0.18 Index (0-0.79); Hepatitis B Core Antibody Nonreactive (Nonreactive); Hepatitis B Surface Antigen Negative (Negative); ~HepC Num1 6.05 S/CO (0.00-0.79); ~Hepatitis A Antibody IgM Nonreactive (Nonreactive); ~Hepatitis B Surface Antibody NONREACTIVE (Nonreactive); ~Hepatitis C Antibody Reactive (Nonreactive)
[2024-02-11 14:09] LABS: Anti Nuclear Antibody Screen NEGATIVE (NEGATIVE)
[2024-02-11 22:52] LABS: Prot Elec - Albumin 4.9 g/dL (3.8-4.8); Prot Elec - Alpha1 0.3 g/dL (0.2-0.3); Prot Elec - Alpha2 0.8 g/dL (0.5-0.9); Prot Elec - Beta 1 0.4 g/dL (0.4-0.6); Prot Elec - Beta 2 0.4 g/dL (0.2-0.5); Prot Elec - Total Protein 7.7 g/dL (6.1-8.1)
[2024-02-12 09:18] LABS: Alpha Fetoprotein 1.2 ng/mL
[2024-02-13 14:12] LABS: Smooth Muscle Antibody <20 U (<20)
[2024-02-14 02:23] LABS: FIB-ALT 17 U/L (6-29); FIB-Alpha-2-Macroglobulin 264 mg/dL (106-279); FIB-Apolipoprotein A1 234 mg/dL (101-198); FIB-GGT 13 U/L (3-65); FIB-Haptoglobin 90 mg/dL (43-212); FIB-Total Bilirubin 0.5 mg/dL (0.2-1.2); Liver Fibrosis Score 0.15; Liver Fibrosis Stage F0; Nec Inflam Act Grade A0; Nec Inflam Act Score 0.05; Reference ID 5156443
== END 2024-02-08 10:50 | disposition home or self-care (01) ==
LOC: HO.US 10:49
PROVIDERS: Internal Medicine Endocrinology, Diabetes & Metabolism; Internal Medicine Nephrology; PCP Nurse Practitioner Family; Visit Provider Nurse Practitioner
DX: R74.01 Elevation of levels of liver transaminase levels (principal); N18.32 Chronic kidney disease, stage 3b; K91.5 Postcholecystectomy syndrome; M81.0 Age-related osteoporosis without current pathological fracture
CPT/HCPCS: 36415; 76700; 80051; 81596; 82105; 82306; 82310; 82565; 82728; 84100; 84165; 84520; 86015; 86038; 86140; 86335; 86381; 86704; 86706; 86709; 86803; 87340; 87389

== ENCOUNTER 2024-02-13 12:21 | Outpatient (AMB) | payer OTHER, SELFPAY ==
--- NOTE | 2024-02-13 12:27 | A.OFFVIS_ITS ---
Vital Signs 02/13/24 12:28 Height 4 ft 10 in Weight 118 lb BMI 24.7 BP 124/63 Blood Pressure Location Lt brachial Position Sitting Pulse 83 Intake Visit Reasons: 6 week follow up Intake Note: Patient follow up Patient denies any GI issues for today. 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 Accompanied by: Self / Same As Patient Allergies No Known Allergies Allergy (Verified 02/13/24 12:26) HPI HPI 6 week follow up: Details: Assessment & Plan (1) Transaminitis: Code(s): R74.01 - Elevation of levels of liver transaminase levels Category: Medical (2) Post-cholecystectomy syndrome: Code(s): K91.5 - Postcholecystectomy syndrome Category: Medical (3) Diarrhea: Code(s): R19.7 - Diarrhea, unspecified Category: Medical (4) COPD (chronic obstructive pulmonary disease): Comment: controlled on Symbicort and MARIBELL Continue; declines referral to Pulm or Lung Cancer screening Smoking cessation advised Code(s): J44.9 - Chronic obstructive pulmonary disease, unspecified Category: Medical Qualifiers: COPD type: chronic bronchitis Chronic bronchitis type: simple Qualified Code(s): J41.0 - Simple chronic bronchitis (5) Current tobacco use: Comment: smoking cessation given Code(s): Z72.0 - Tobacco use Category: Medical (6) Colonoscopy refused: Comment: Due to inability to tolerate any of the preps as she says she has tried them all in the past there is no known family history of colon cancer Code(s): Z53.20 - Procedure and treatment not carried out because of patient's decision for unspecified reasons Category: Medical Plan She is concerned a solitary liver cyst on an MRI for her back. She was quite worried that this was something that needed to be removed. I explained that we all have anywhere from 1-4 liver cysts and that they are in fact more common in women because the estrogen driven. However, they are not removed as they are benign and surgery would cause more damage or complications solve the problem that does not exist. Given the fact that she has a mild rise in her transaminases I will do a workup to exclude any uncommon liver diseases and will get an ultrasound all of this I think will help put her mind at ease. There is no known family history of liver disease and the patient does not drink alcohol. Nevertheless she was educated on fatty liver and that the 3 things to keep her liver healthy would be limiting weight gain, controlling blood sugar should she become diabetic, and avoiding alcohol. I feel confident that she does not have any problems because I reviewed the MRI in question that was taken 3 years ago and it shows only a solitary liver cyst of 6 mm. I believe there was also quite a bit of confusion because she does have hydronephrosis and she was told that something was swollen and pressing on her back. It is more likely that this was her kidney. She was also under the impression that her liver was only functioning at 25% and again I think this is a reference to her renal function not her liver function. She also has trouble with diarrhea. She calls is colitis saying her mother had the same but this has never been dx'ed formally. She has never had a colonoscopy r/t inability to drink prep. She has diarrhea, mostly in the am as watery, it seems a bit better with eating her salad. She is s/p raimundo and her diarrhea has been since her raimundo. Start on cholestyramine bid. This is a very long appointment because she has many questions about her general health. She is very fearful of cancer a wants to know ?how his that get into the body.? I explained that cancer is not a foreign invader but rather is something that happens because of mistakes made as are cells divide as we age. She wants to know how we can detect cancer and I tell her that that is different for every organ system of the body but the short answer is to keep seeing her primary care provider as we will monitor her blood work for any changes that could be concerning. She is also counseled that whenever you have rapid weight loss without explanation or some sudden change in the body this is something she should bring to the attention of her medical providers. She also had many questions by her diagnosis of COPD. She is a smoker, but she has never had any CT scans or pulmonary function testing for this diagnosis. She says she was under the impression she just had asthma. I let her know that marker is most likely develop COPD but she would need these tests to try to ascertain whether she truly has asthma, COPD or a combination of both of these things. Either way the best thing to do is to stop smoking as this will usually have a large impact on the health of her lungs. Would also have a big impact on the health of her kidneys since this would encourage better kidney perfusion. ROV 6 weeks. Orders: Orders Alpha Fetoprotein Today R74.01 - Elevation of levels of liver transaminase levels GAGE Reflex Titer and Pattern Today R74.01 - Elevation of levels of liver transaminase levels Ferritin Today R74.01 - Elevation of levels of liver transaminase levels HIV Ab/Ag Today R74.01 - Elevation of levels of liver transaminase levels C Reactive Protein Today K91.5 - Postcholecystectomy syndrome, R74.01 - Elevation of levels of liver transaminase levels US abdomen complete Today R74.01 - Elevation of levels of liver transaminase levels Smooth Muscle Antibody Today R74.01 - Elevation of levels of liver transaminase levels Mitochondrial Antibody Today R74.01 - Elevation of levels of liver transaminase levels Hepatitis A,B,C Profile Today R74.01 - Elevation of levels of liver transaminase levels Liver Fibrosis Pnl Today R74.01 - Elevation of levels of liver transaminase levels Rast Allergen Today K91.5 - Postcholecystectomy syndrome, R74.01 - Elevation of levels of liver transaminase levels Calprotectin, Fecal Today K91.5 - Postcholecystectomy syndrome, R74.01 - Elevation of levels of liver transaminase levels Pancreatic Elastase-1 Today K91.5 - Postcholecystectomy syndrome, R74.01 - Elevation of levels of liver transaminase levels Medications: New cholestyramine-aspartame 4 gram (Cholestyramine Light) administer w/meal; avoid other meds within 1hr before or 4-6hr after dose 4 grams PO BID 60 ea 6RF K91.5 - Postcholecystectomy syndrome LABS: Laboratory Tests 02/08/24 02/08/24 11:20 11:22 Estimated GFR 36 Ferritin 63 GAGE Screen NEGATIVE Anti-Mitochondrial Ab SEE NOTE Hepatitis A IgM Ab Nonreactive Hep Bs Antigen Negative Hep Bs Antibody NONREACTIVE Hep B Core Total Ab Nonreactive Hepatitis C Ab (EIA) Reactive H HIV 1&2 Ab/P24 Ag 4thGn Nonreactive ULTRASOUND OF THE ABDOMEN 02/12/24 FINDINGS: PANCREAS: Normal. ABDOMINAL AORTA: The proximal, mid, and distal segments are normal in caliber. INFERIOR VENA CAVA: Visualized portions are normal. LIVER: The liver is normal in size. The liver contour is normal. Parenchymal echogenicity is normal. No focal hepatic lesion. There is mild central bile duct dilatation which can be seen after cholecystectomy. GALLBLADDER: Surgically absent. COMMON BILE DUCT: Common bile duct is dilated postcholecystectomy measuring 1.4 cm in diameter. No distal obstructing lesion is seen. RIGHT KIDNEY: No hydronephrosis or renal calculi. The kidney measures 6.2 cm in maximum dimension. Multiple benign Bosniak class I renal cysts are noted, the largest at the lower pole measuring 1.4 cm, which require no additional imaging or follow-up. No solid renal masses are seen. LEFT KIDNEY: No hydronephrosis. No renal calculi or focal parenchymal lesions. The kidney measures 10.1 cm in maximum dimension. SPLEEN: Normal. The spleen measures 7.2 cm in maximum dimension. FREE FLUID: None. US/US abdomen complete IMPRESSION: No significant abnormality is seen. Prominent intrahepatic bile ducts and dilated common bile duct may be seen after cholecystectomy. If patient's elevated LFTs persist, MRCP may be useful for further evaluation. TODAY'S VISIT She is not in a frame of mind to do more blood work today I don't want to be poked and prodded, they keep telling me I have new diseases since I came to [place]. Her anxiety is really overwhelming her as is the information. She also is being weaned from chronic opioids and says I'm in pain and no one in this state will prescribe, even my tramadol. At any event not all of her blood work has been return since she just did it this morning. The back pain is her major focus. She perseverates and cries in the office. She asks me what is the most important for me to focus on, and I tell her it would be the renal problems first, in my opinion. The Hep C is likely a past infection and not currently active, but I would like to do additional labs, eventually, to be sure. She could not tolerate the cholestyramine r/t bloating. Will try carafate, but information today indicates there may be an element of post raimundo syndrome with an overlay of opiate withdrawal. ROV 6 weeks. [facility] Medical History Encounter for general adult medical examination without abnormal findings Liver disease Polyarthralgia Lumbar degenerative disc disease ISSAC (generalized anxiety disorder) HTN (hypertension) Chronic back pain Renal stones Surgical History History of left knee replacement History of left hip replacement Hx of section S/P cholecystectomy H/O laminectomy Family History Mother Colitis Maternal Uncle Cancer Family/Other Cancer Social History Household Members: Other Household Members Other:: Roommate x1 Housing: Other Housing Other:: Roommate 75 years or older and lives alone: No Alcohol intake: former 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 Patient Tobacco Use Status: Current everyday Tobacco user Tobacco use type: Cigarette Cigarettes Per Day: 6 Years Smoked: 40 e-Cigarette/Vaping Use: Currently Using Substance Use Type: Marijuana service: No Current occupational status: disabled Current occupational exposures/hazards: No Sexual orientation: Straight/Heterosexual Gender identity: Female Cognitive needs: No Hearing needs: No Vision needs: Yes Review of Systems Const Denies fatigue, Denies fever(s), Denies night sweats, Denies poor appetite and Denies weight loss ENT Reports Normal hearing present, Denies dental pain, Denies dysphagia, Denies hearing loss, Denies mouth pain, Denies odynophagia, Denies throat swelling, Denies tongue swelling and Reports other (Dentition adequate) Card Reports no additional complaints Resp Reports no additional complaints GI Details: Denies abdominal pain, Denies melena, Denies bloating, Denies hematochezia, Denies constipation, Denies GI cramping, Denies dysphagia, Denies excessive flatus, Denies early satiety, Denies heartburn, Reports diarrhea, Denies nausea, Denies odynophagia, Denies vomiting and Denies hematemesis Reports nocturia Musc Reports back pain, Reports myalgias, Reports arthralgias and Reports radiating pain into limb Skin/Breast Denies pruritus, Denies lesions, Denies rash and Denies jaundice Neuro Reports Normal hearing present and Denies Abnormal speech present Psych Reports abnormal sleep pattern, Reports anxiety, Reports depression, Reports difficulty concentrating, Reports irritability, Denies homicidal ideation and Denies suicidal ideation Endo Denies fatigue Aller/Immun Denies throat swelling and Denies tongue swelling Physical Exam Vital Signs: Last Vital Signs Pulse 83 02/13/24 12:28 BP 124/63 02/13/24 12:28 BMI result Body Mass Index 24.7 Const General: cooperative, no acute distress, well developed and well groomed Nutritional Appearance: average body habitus and well nourished Orientation/consciousness: oriented to person, oriented to place and oriented to time Limitations: behavioral limitations and No language barrier HEENT Head: Yes normocephalic and Yes atraumatic Eyes General: appearance normal, both eyes and all related structures Pupils: Equal, round and reactive pupils present Neck Neck: Yes normal visual inspection and Yes no lymphadenopathy Thyroid: Thyroid normal Resp Effort & Inspection: normal respiratory effort and able to speak in complete sentences Auscultation: clear to auscultation bilaterally Cardio Rate: regular rate Rhythm: regular rhythm Heart sounds: Normal, physiologic split S2 sound present Peripheral pulses: radial pulses present and posterior tibial pulses present GI Inspection: No distended and No Abdominal panniculus present Palpation (GI): Soft to palpation, nontender, no guarding, not rigid and No hepatosplenomegaly present Percussion: Yes normal to percussion Auscultation: normal bowel sounds Rectal Exam - Female: deferred Skin General skin exam: no rashes or lesions noted, turgor normal, skin not dry, no jaundice, No spider nevi and no striae Rashes: no rashes Nails: normal Neuro General: oriented to person, oriented to place and oriented to time Cranial nerves: Yes Equal, round and reactive pupils present and Yes Normal hearing present Speech: No Abnormal speech present Extrem General: Yes normal to inspection, No clubbing, No cyanosis and No edema Psych Appearance: grossly normal and well kempt Mental Status: mental status grossly normal Speech and movement: Normal speech and movement present Affect: Labile affect present, Sad affect present and Irritable affect present Attitude: cooperative Thought process: not confabulating and Perseverating thought process present Thought content: Normal thought content present Insight: Poor insight present (Psych) Judgement: Poor judgement present (Psych) Assessment & Plan Assessment & Plan (1) Hepatitis C antibody positive in blood: Code(s): R76.8 - Other specified abnormal immunological findings in serum Category: Medical (2) Post-cholecystectomy syndrome: Code(s): K91.5 - Postcholecystectomy syndrome Category: Medical (3) Chronic pain syndrome: Code(s): G89.4 - Chronic pain syndrome Category: Medical (4) CKD (chronic kidney disease) stage 3, GFR 30-59 ml/min: Code(s): N18.30 - Chronic kidney disease, stage 3 unspecified Category: Medical Qualifiers: Chronic kidney disease stage 3 subtype: stage 3b (GFR 30-44) Qualified Code(s): N18.32 - Chronic kidney disease, stage 3b Plan She is not in a frame of mind to do more blood work today I don't want to be poked and prodded, they keep telling me I have new diseases since I came to [place]. Her anxiety is really overwhelming her as is the information. She also is being weaned from chronic opioids and says I'm in pain and no one in this state will prescribe, even my tramadol. At any event not all of her blood work has been return since she just did it this morning. The back pain is her major focus. She perseverates and cries in the office. She asks me what is the most important for me to focus on, and I tell her it would be the renal problems first, in my opinion. The Hep C is likely a past infection and not currently active, but I would like to do additional labs, eventually, to be sure. She could not tolerate the cholestyramine r/t bloating. Will try carafate, but information today indicates there may be an element of post raimundo syndrome with an overlay of opiate withdrawal. ROV 6 weeks. Medications: New sucralfate (Carafate) 2 grams (2 x 1 gram) PO QNOON 60 tabs 6RF K91.5 - Postcholecystectomy syndrome Discontinued cholestyramine-aspartame 4 gram (Cholestyramine Light) administer w/meal; avoid other meds within 1hr before or 4-6hr after dose Discontinued Reason: Change Referral Type 4 grams PO BID 60 ea 6RF K91.5 - Postcholecystectomy syndrome Coding Level of Care Code Est Pt Level 3 (49607) Complex EM visit Add On G2211 Diagnoses Hepatitis C antibody positive in blood R76.8 Post-cholecystectomy syndrome K91.5 Chronic pain syndrome G89.4 Stage 3b chronic kidney disease N18.32 Chronic kidney disease stage 3 subtype: stage 3b (GFR 30-44) Time Spent (min) 38
[2024-02-13 12:28] VITALS: BP 124/63; PULSE 83; BMI 24.7
== END 2024-02-13 13:13 | disposition home or self-care (01) ==
PROVIDERS: PCP Nurse Practitioner Family; Visit Provider Nurse Practitioner
DX: R76.8 Other specified abnormal immunological findings in serum (principal); K91.5 Postcholecystectomy syndrome; G89.4 Chronic pain syndrome; N18.32 Chronic kidney disease, stage 3b
CPT/HCPCS: 99213; G2211

== ENCOUNTER → 2024-02-13 12:21 | Outpatient (BNVA) | payer OTHER, SELFPAY | PROVIDERS: PCP Nurse Practitioner Family; Visit Provider Nurse Practitioner | DX: K91.5 Postcholecystectomy syndrome (principal); R76.8 Other specified abnormal immunological findings in serum; N18.32 Chronic kidney disease, stage 3b; G89.4 Chronic pain syndrome | CPT/HCPCS: 99212 ==

== ENCOUNTER 2024-02-21 13:05 | Outpatient (AMB) | payer OTHER, SELFPAY ==
[2024-02-21 13:21] VITALS: BP 130/62; PULSE 61; O2SAT 99; BMI 26.1
--- NOTE | 2024-02-21 13:21 | HO.NEPHOV_ITS ---
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 Accompanied by: Self / Same As Patient Allergies No Known Allergies Allergy (Verified 02/21/24 13:25) Medication List - Last Reconciled 02/21/24 by Wilder Chaney MD acetaminophen ER (Tylenol Arthritis Pain) 650 mg PO Q12H albuterol sulfate 90 mcg/actuation 2 puffs inhalation Q4H PRN amlodipine 2.5 mg PO DAILY budesonide-formoterol 160-4.5 mcg/actuation (Symbicort) 2 inhalations inhalation BID cephalexin 500 mg PO BID diclofenac sodium 1% 2 grams topical QID PRN duloxetine 60 mg PO DAILY gabapentin 100 mg PO TID ipratropium-albuterol 0.5 mg-3 mg(2.5 mg base)/3 mL 3 mL inhalation Q6H PRN metoprolol succinate ER 25 mg PO DAILY montelukast 10 mg PO DAILY sucralfate (Carafate) 2 grams (2 x 1 gram) PO QNOON tizanidine 2 mg PO Q8H PRN tramadol 50 mg PO BID PRN HPI Comments Details: Sangita is a pleasant 68-year-old woman referred for evaluation of CKD. Serum creatinine was 1.56. She has recently moved from [place]. In 2020 she had an MRI which showed hydronephrosis on the right side. Apparently this has not been addressed and she has not aware of this finding. MRI showed advanced multilevel lumbar spondylosis. She is significant pain and he has been taking NSAIDs on and off. Prior to this she was on narcotics which she has not taking currently. She has a history of hypertension. She has been on lisinopril 10 mg a day. She is history of smoking, currently smokes less than 10 a day. 10/09/23 Still on Naprosyn 500 BID 02/21/24 Now on gabapentin Gained 10 lbs PFSH Medical History Encounter for general adult medical examination without abnormal findings Liver disease Polyarthralgia Lumbar degenerative disc disease ISSAC (generalized anxiety disorder) HTN (hypertension) Chronic back pain Renal stones Surgical History History of left knee replacement History of left hip replacement Hx of section S/P cholecystectomy H/O laminectomy Family History Mother Colitis Maternal Uncle Cancer Family/Other Cancer Social History Household Members: Other Household Members Other:: Roommate x1 Housing: Other Housing Other:: Roommate 75 years or older and lives alone: No Alcohol intake: former 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 Patient Tobacco Use Status: Current everyday Tobacco user Tobacco use type: Cigarette Cigarettes Per Day: 6 Years Smoked: 40 e-Cigarette/Vaping Use: Currently Using Substance Use Type: Marijuana service: No Current occupational status: disabled Current occupational exposures/hazards: No Sexual orientation: Straight/Heterosexual Gender identity: Female Cognitive needs: No Hearing needs: No Vision needs: Yes Physical Exam Vital Signs: Last Vital Signs Pulse 61 02/21/24 13:21 BP 130/62 02/21/24 13:21 Pulse Ox 99 02/21/24 13:21 Oxygen Delivery Method Room Air 02/21/24 13:21 BMI result Body Mass Index 26.1 Const General: comfortable; No acute distress Orientation/consciousness: patient oriented x3 Eyes General: appearance normal, both eyes and all related structures Visual Wilson: normal visual wilson by confrontation Neck Neck: Yes supple and Yes no JVD Resp Effort & Inspection: normal respiratory effort and respiratory effort not decreased Auscultation: rhonchi Cardio Palpation: no palpable S3 and no palpable S4 Heart sounds: no rubs GI Inspection: Yes normal to inspection Palpation (GI): Soft to palpation Percussion: Yes normal to percussion Auscultation: normal bowel sounds General: Yes no CVA tenderness Back/Spine/Pelvis Back: no CVA tenderness Skin General skin exam: no petechiae and no purpura Neuro General: patient oriented x3 and no focal motor deficits Extrem General: No clubbing and No edema Results Reviewed Nephrology Results: Sodium 138 mmol/L (135-145) 02/08/24 Potassium 3.7 mmol/L (3.3-5.1) 02/08/24 Chloride 102 mmol/L (96-108) 02/08/24 Carbon Dioxide 27 mmol/L (22-29) 02/08/24 BUN 20 mg/dL (9-16) H 02/08/24 Creatinine 1.44 mg/dL (0.5-1.4) H 02/08/24 Calcium 9.9 mg/dL (8.4-10.2) 02/08/24 Phosphorus 3.2 mg/dL (2.7-4.5) 02/08/24 Assessment & Plan Assessment & Plan (1) CKD (chronic kidney disease) stage 3, GFR 30-59 ml/min: Code(s): N18.30 - Chronic kidney disease, stage 3 unspecified Category: Medical Qualifiers: Chronic kidney disease stage 3 subtype: stage 3b (GFR 30-44) Qualified Code(s): N18.32 - Chronic kidney disease, stage 3b Plan 68-year-old woman with chronic kidney disease. Three years ago she had right-sided hydronephrosis. No further imaging has been obtain since. Obstructive uropathy ruled out- Repeat sono appears normal with out hydro Other possibilities include hypertensive nephrosclerosis and NSAID nephropathy. Glomerulonephritis or interstitial disease seem unlikely. No significant proteinuria Creatinine is unchanged Atrophic RIGHT kidney measuring 7.1 cm PLAN STOP NAPROSYN Changed LISINOPRIL to Amlodipine Optimize blood pressure. BP is well controlled AMLODIPINE 2.5 mg DAILY Continue to avoid nephrotoxic agents including NSAIDs. Orders: Orders Basic Metabolic Panel 6 Months N18.32 - Chronic kidney disease, stage 3b Complete Blood Count Auto Diff 6 Months N18.32 - Chronic kidney disease, stage 3b Coding Level of Care Code Est Pt Level 4 (88650) Diagnoses Stage 3b chronic kidney disease N18.32 Chronic kidney disease stage 3 subtype: stage 3b (GFR 30-44)
== END 2024-02-21 13:42 | disposition home or self-care (01) ==
PROVIDERS: PCP Nurse Practitioner Family; Visit Provider Internal Medicine Hypertension Specialist
DX: N18.32 Chronic kidney disease, stage 3b (principal)
CPT/HCPCS: 99214

== ENCOUNTER → 2024-02-21 13:05 | Outpatient (BNVA) | payer OTHER, SELFPAY | PROVIDERS: PCP Nurse Practitioner Family; Visit Provider Internal Medicine Hypertension Specialist | DX: I12.9 Hypertensive chronic kidney disease with stage 1 through stage 4 chronic kidney disease, or unspecified chronic kidney disease (principal); N18.32 Chronic kidney disease, stage 3b | CPT/HCPCS: 99212 ==

== ENCOUNTER → 2024-03-13 15:26 | Outpatient (BNVA) | payer OTHER, SELFPAY | PROVIDERS: PCP Nurse Practitioner Family; Visit Provider Nurse Practitioner Family ==

== ENCOUNTER 2024-07-07 13:37 | Outpatient (REF) | payer OTHER, SELFPAY ==
--- OUTSIDE RECORDS SUMMARY | 2024-07-07 15:23 | XMS_ITS | Data Portability ---
Author Organization [place] - [facility], autoContract - [facility] Address [address] [place] [address] Care Team Providers Care Service Operator Name Role Phone REBECCA ESCALONA OTHER MARIA GARCIA OTHER Assessment No assessment recorded. Plan of Treatment Reminders Order Date Submit Date Provider Last Modified By Organization Details Last Modified Time Details Appointments None recorded. Lab None recorded. Referral None recorded. Procedures None recorded. Surgeries None recorded. Imaging US, echocardio gram, transthora cic, complete, w/ color flow 2018 019 Not available 9 09:14:24 electrocar diogram 2018 019 [email or web address] Not available 9 16:39:58 holter monitor 2018 019 [email or web address] Not available 9 16:39:58 Medication Orders None recorded. Patient TargetsNo targets recorded. Patient Instructions Encounter Date Encounter Id Patient Instructions Last Modified By Organization Details Last Modified Time 06/06/2018 [id number] deciding about using medicines to quit smoking Not available 06/06/2018 17:23:29 Quitting Tobacco : Care Instructions Not available 06/06/2018 17:23:29 eating healthy foods: care instructions Not available 06/06/2018 17:22:32 high blood pressure: care instructions Not available 06/06/2018 17:22:32 Reason for Referral None Reported. Results Created Date Observation Date Name Description Value Unit Range Abnormal Flag Note LastModifiedBy Organization Detail LastModifiedTime 06/06/19 19 elect rocar diogr am No observ ation record ed. Not Available 2018 18:44:44 06/19/19 19 US, echoc ardio gram No observ ation record ed. BARCODE Not Available 2018 10:19:56 06/21/19 19 06/19/2018 cardi ac telem etry No observ ation record ed. [facility] [address], [place], [address], 06/28/2018 17:37:34 06/24/19 19 US, echoc ardio gram No observ ation record ed. BARCODE Not Available 2018 18:52:06 Result Notes None recorded. 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 538279825 Completed 03/14/2018 Sena Kurt, RMA null, [facility] 8 12:58:34 Intermitt ent palpitati ons 552558086 Active 2017 Sena Kurt, RMA null, [facility] 8 12:57:03 Depressiv e disorder 96406517 Active Sena Kurt, RMA null, [facility] 8 12:57:03 Chronic pain syndrome 749972446 Completed 03/14/2018 Sena Kurt, RMA null, [facility] 8 12:58:43 Mild memory disturban ce 685504548 Completed 201703/14/2018 Sena Kurt, RMA null, [facility] 8 12:58:23 Increased frequency of urination 695414893 Completed 201703/14/2018 Sena Kurt, RMA null, [facility] 8 12:58:27 Carpal tunnel syndrome 62172674 Active Sena Kurt RMA null, [facility] 8 12:57:03 Long-term current use of opiate analgesic drug 248828717216 108 Active 2017 Sena Kurt, RMA null, [facility] 8 12:57:03 Asthma 528100679 Completed 03/14/2018 Sena Kurt, RMA null, [facility] 8 12:58:31 Mixed anxiety and depressiv e disorder 709750422 Completed 03/14/2018 Sena Kurt, RMA null, [facility] 8 12:58:37 Benign essential hypertens ion 4020400 Active Sena Kurt, RMA null, [facility] 8 12:57:03 Shoulder joint pain 047852806 Completed 03/14/2018 Sena Kurt, RMA null, [facility] 8 12:58:47 Cigarette smoker 47360968 Active Sena Kurt, RMA null, [facility] 8 12:57:03 Closed fracture of phalanx of foot 12180443 Completed 03/14/2018 Sena Kurt, RMA null, [facility] 8 12:57:39 Feeling nervous 835626023 Completed 03/14/2018 Sena Kurt, RMA null, [facility] 8 12:57:57 Osteopeni a 801735003 Completed 03/14/2018 Sena Kurt, RMA null, [facility] 8 12:58:01 Overweigh t 304444640 Completed 201703/14/2018 Sena Kurt, RMA null, [facility] 8 12:58:11 Degenerat ion of lumbosacr al intervert ebral disc 48726687 Completed 03/14/2018 Sena Hicks RMA null, [facility] 8 12:57:48 Gastroeso phageal reflux disease 541050568 Active Sena Hicks RMA null, [facility] 8 12:57:03 Menopausa l symptom 05158372 Completed 03/14/2018 Sena Hicks RMA null, [facility] 8 12:58:18 History of hepatitis C 038533295830 Completed 201703/14/2018 Sena Kurt RMA null, [facility] 8 12:57:36 Malaise and fatigue 409670805 Completed 201703/14/2018 Sena Kurt RMA null, [facility] 8 12:58:05 Problem Notes None recorded. Procedures Surgical History Date Name Laterality Status Provider Name and Address Organization Details Recorded Time 06/19/19 19 Echocardiogram completed Nida Reyes [facility] 06/24/2018 17:47:42 Other completed Sena Hicks, ARVINDA [facility] 02/18/2018 10:05:38 Other completed Sena Kurt, ARVINDA [facility] 02/18/2018 10:05:58 Other completed Sena Hicks, RMA [facility] 02/18/2018 10:06:10 Cholecystectomy w/cholang completed Sena Hicks, ARVINDA [facility] 02/18/2018 10:06:30 Tubal Ligation completed ARVIND TapiaA [facility] 02/18/2018 14:35:35 Imaging Results Imaging Date Name Status LastModified by Organization Details LastModified Time 06/06/2018 electrocardiogram completed Informa tion not available 06/06/2018 18:44:44 06/19/2018 US, echocardiogram completed BARCODE Inform ation not available 06/19/2018 10:19:56 06/19/2018 cardiac telemetry completed [facility] [address], [place], [address], 06/28/2018 17:37:34 06/24/2018 US, echocardiogram completed BARCODE Inform ation not available 06/24/2018 18:52:06 Procedure Notes None recorded. Medical Equipment None Reported. Allergies No known drug allergies Medications Name Sig Start Date Stop Date Status Note LastModified by Organization Details LastModified Time methocarbam ol 500 mg tablet Take 1 tablet twice a day by oral route. active Not Available Not Available No t Available fentanyl 50 mcg/hr transdermal patch 06/06 completed Not Available Not Available Not Available clonidine HCl 0.1 mg tablet 06/06 completed Not Available Not Available Not Available nabumetone 750 mg tablet Take 1 tablet twice a day by oral route. 06/06 completed Not Available Not Available Not Available tizanidine 4 mg tablet Take 1 tablet every 8 hours by oral route. 06/06 completed Not Available Not Available Not Available meloxicam 15 mg tablet active Not Available Not Available Not Available aspirin 81 mg tablet,bria yed release TAKE 1 TABLET BY MOUTH EVERY DAY active Not Available Not Available No t Available doxycycline monohydrate 100 mg tablet TAKE 1 TABLET BY MOUTH TWICE DAILY FOR 7 DAYS active Not Available Not Available No t Available oxycodone 15 mg tablet Take 1 tablet every 6 hours by oral route. active Not Available Not Available No t Available meloxicam 7.5 mg tablet Take 1 tablet every day by oral route. active Not Available Not Available No t Available oxycodone-a cetaminophe n 5 mg-325 mg tablet TAKE 1 TABLET BY MOUTH EVERY 8 HOURS NEEDED active Not Available Not Available No t Available Imodium A-D 2 mg tablet Take 1 tablet 4 times a day by oral route as needed. 06/06 completed Not Available Not Available Not Available cephalexin 500 mg capsule TAKE 1 CAPSULE BY MOUTH EVERY 6 HOURS FOR 7 DAYS active Not Available Not Available No t Available lisinopril 10 mg tablet TAKE 1 TABLET BY MOUTH EVERY DAY active Not Available Not Available No t Available montelukast 10 mg tablet TAKE 1 TABLET BY MOUTH EVERY DAY active Not Available Not Available No t Available hydrochloro thiazide 25 mg tablet Take 1 tablet every day by oral route. active Not Available Not Available No t Available mupirocin 2 % topical ointment APPLY SMALL AMOUNT TOPICALLY TO THE AFFECTED AREA THREE TIMES DAILY active Not Available Not Available No t Available metoprolol succinate ER 25 mg tablet,exte nded release 24 hr TAKE 1 TABLET BY MOUTH DAILY active Not Available Not Available No t Available oxycodone 30 mg tablet Take 1 tablet(s) every day by oral route PRN 06/06 completed Not Available Not Available Not Available fentanyl 25 mcg/hr transdermal patch Apply 1 patch every 72 hours by transderm . route. 2018 active Not Available Not Available Not Avai lable methylpredn isolone 4 mg tablets in a dose pack FOLLOW PACKAGE DIRECTION S active Not Available Not Available No t Available albuterol sulfate HFA 90 mcg/actuati on aerosol inhaler INHALE 2 PUFFS BY MOUTH EVERY 4 HOURS NEEDED active Not Available Not Available No t Available fentanyl 75 mcg/hr transdermal patch Apply 1 patch every 72 hours by transderm al route. 06/06 completed Not Available Not Available Not Available lisinopril 40 mg tablet Take 1 tablet every day by oral route. active Not Available Not Available No t Available topiramate 100 mg tablet TAKE 1 TABLET BY MOUTH TWICE DAILY active Not Available Not Available No t Available lisinopril 2.5 mg tablet TAKE 1 TABLET BY MOUTH EVERY DAY active Not Available Not Available No t Available topiramate 50 mg tablet Take 1 tablet twice a day by oral route. active Not Available Not Available No t Available duloxetine 60 mg capsule,del ayed release TAKE 1 CAPSULE BY MOUTH EVERY DAY active Not Available Not Available No t Available Atrovent HFA 17 mcg/actuati on aerosol inhaler Inhale 2 puffs 4 times a day by inhalatio n route. 06/06 completed Not Available Not Available Not Available oxycodone 20 mg tablet 06/06 completed Not Available Not Available Not Available diclofenac 1 % topical gel APPLY 2 GRAMS TOPICALLY TO THE AFFECTED AREA FOUR TIMES DAILY active Not Available Not Available No t Available ProAir RespiClick 90 mcg/actuati on breath activated Inhale 2 puffs every 4 hours by inhalatio n route. 06/06 completed Not Available Not Available Not Available Belbuca 300 mcg buccal film TAKE 1 STRIP BY MOUTH TWICE DAILY active Not Available Not Available No t Available Belbuca 150 mcg buccal film APPLY 1 FILM IN MOUTH TWICE A DAY active Not Available Not Available No t Available naloxone 4 mg/actuatio n nasal spray active Not Available Not Available Not Available Vitals Date Recorded Body height Body mass index (BMI) Body weight Heart rate Oxygen saturation Oxygen saturation in Arterial blood by Pulse oximetry Systolic blood pressure Diastolic blood pressure Provider Name and Address Organization Details Last Updated DateTime 9 152.4 cm 27.7 kg/m2 24918.1 2 g 70 /min 98 % 98 % 122 mm[Hg] 80 mm[Hg] Yohana Song [facility] 9 17:16:31 Social History Question Answer Notes LastModified by Organizat Ninite Details LastModified Time Tobacco Smoking Status Current Every Day Smoker Sena Hicks, SUNG juwan, [facility] 02/18/2018 10:04:50 Do You Have An Advance Directive? No Information not available 06/06/2018 What Is Your Level Of Alcohol Consumption? None Information not available 02/18/2018 What Is Your Level Of Caffeine Consumption? None Information not available 02/18/2018 What Type Of Diet Are You Following? REGULAR Information not available 02/18/2018 Cigars/Cigare ttes Cigarettes Information not available 06/06/2018 Illicit Drug Use? No Information not available 02/18/2018 Marital Status Information not available 02/18/2018 What Was The Date Of Your Most Recent Tobacco Screening? 06/06/2018 Information not available 11/22/2018 How Much Tobacco Do You Smoke? 1 PPD Information not available 02/18/2018 Sex: Unknown Functional Status Question Answer Note LastModified by Organizat Ninite Details LastModified Time What is your exercise level? Occasional Information not available 02/18/2018 Mental Status None recorded. Family History Relationship Description Onset Age of this Age Resolved Age Notes LastModified by Organization Details LastModified Time Father Alcoholism Not available 02/18/2018 10:02:40 Mother Chronic obstructive pulmonary disease Not available 2017 10:02:53 Mother Coronary arterioscler osis Not available 2017 10:03:05 Mother Diabetes mellitus Not available 2017 10:03:16 Mother Alzheimer's disease Not available 2017 10:03:42 Brother Coronary arterioscler osis Not available 2017 10:03:54 Maternal Grandmother Diabetes mellitus Not available 2017 10:04:09 Maternal Grandmother Alzheimer's disease Not available 2017 10:04:19 Medical History Condition Response Liver Disease/Hepatitis Y High Blood Pressure (Hypertension) Y Arthritis Y Depression Y Asthma Y Gynecological HistoryNo gynecological history recorded. Obstetrics History GPAL:G 0 P 0 0 0 0 Past Encounters Encounter ID Performer Location Encounter Start Date Encounter Closed Date Diagnosis/Indication Diagnosis SNOMED-CT Code Diagnosis ICD10 Code Diagnosis Note [id number] [facility] [address] [place] [address] 05/05/2010 18:12:34 05/05/2010 19:18:30 [id number] Amaya Bullek (Elenita) [facility] [address] [place] [address] 05/10/2010 17:06:55 05/10/2010 18:50:11 [id number] [facility] [address] [place] [address] 05/31/2010 18:17:55 05/31/2010 19:23:28 [id number] [facility] [address] [place] [address] 10/04/2010 17:25:28 10/04/2010 18:04:57 [id number] Amaya Babatunde (Elenita) [facility] [address] [place] [address] 10/26/2010 15:30:56 10/26/2010 16:47:04 [id number] [facility] [address] [place] [address] 12/19/2010 19:34:25 12/19/2010 20:13:27 [id number] [facility] [address] [facility] [place] [address] 03/17/2011 14:44:01 03/17/2011 15:31:54 [id number] [facility] [address] [facility] [place] [address] 06/01/2011 12:28:37 06/01/2011 13:54:09 [id number] Amaya Fronek (Elenita) [facility] [address] [place] [address] 07/18/2012 19:08:12 07/19/2012 13:17:25 [id number] Amaya Fronek (Elenita) [facility] [address] [place] [address] 05/22/2013 16:22:52 05/23/2013 10:09:02 [id number] [facility] [address] [place] [address] 12/15/2013 18:32:26 12/15/2013 19:40:41 [id number] Essence Knowles, DO [facility] [address] [place] [address] 01/02/2014 10:53:17 01/02/2014 15:51:25 [id number] Bess Oh [facility] [address] [place] [address] 03/19/2014 15:04:03 03/19/2014 15:32:34 [id number] Carolin Gonzalez CCM A [facility] [address] [place] [address] 05/10/2015 15:37:23 05/11/2015 11:24:05 [id number] Kateryna Loredo [facility] [address] [place] [address] 07/13/2015 15:34:17 07/14/2015 12:42:51 [id number] Barby Rogel MD [facility] [address] [facility] [place] [address] 05/15/2016 17:34:06 05/15/2016 19:08:03 [id number] Radha Mcmahon, DO [facility] [address] [place] [address] 08/18/2016 19:13:26 08/21/2016 03:16:32 [id number] Ashtyn PrichardAPRILP [facility] [address] [place] [address] 08/06/2017 16:20:46 08/06/2017 21:19:04 [id number] [facility] [employer] [facility] [address] [place] [address] 02/11/2018 16:01:06 02/11/2018 21:36:59 [id number] Poonam Quinn MD [facility] [address] [place] [address] 06/06/2018 16:55:47 06/10/2018 16:39:57 Overweight 796494851 E66.3 Diet: 1800 Calories Low Glycemic Diet Exercise: Work up to 30 min 5x/week as tolerated Electrocar diogram abnormal 021273773 R94.31 LVH Intermitte nt palpitations 335772323 R00.2 once per week last few seconds fast and regular for 4 to 5 beats for last 4- 5 yearsTSH normal Essential hypertension 52151029 I10 controlled with treatment Tobacco de pendence syndrome 25142119 F17.034 [id number] Poonam Quinn MD [facility] [place] [facility] [address] [place] [address] 06/19/2018 09:21:20 06/19/2018 10:16:22 Electrocardiogram abnormal 202919007 R94.31 LVH [id number] [facility], [employer] [facility] [address] [place] [place] [address] 09/02/2018 16:58:51 09/03/2018 09:16:52 [id number] Ashtyn PrichardASHTYN [facility] [address] [place] [place] [address] 11/12/2018 15:01:58 11/12/2018 18:51:23 [id number] Ashtynalistair Bolivar, [employer] [facility] [address] [place] [address] 11/29/2021 17:04:20 11/30/2021 06:58:32 [id number] Ashtyn Bolivar, [employer] [facility] [address] [place] [address] 12/15/2021 12:22:05 12/16/2021 08:34:45 [id number] Kai Davis MD [facility] [place] [address] [place] [address] 01/11/2022 16:24:26 01/11/2022 17:30:02 [id number] Kai Davis MD [facility] [place] [address] [place] [address] 02/21/2022 10:08:23 02/21/2022 14:16:00 [id number] Ashtynalistair Bolivar, [employer] [facility] [address] [place] [address] 03/06/2022 17:54:38 03/07/2022 23:28:20 [id number] Ashtyn Bolivar, [employer] [facility] [address] [place] [address] 05/11/2022 15:06:18 05/12/2022 06:02:02 Health Concerns Section Related Observation LastModified by Organization Detai ls LastModified Time None Recorded Concern Status LastModified by Organization Details LastModified Time None Recorded Advance Directives Directive N: Payers Encounter Date Sequence Insurance Name Policy Number Policy Crawley Covered Member ID Crawley Member ID Guarantor Name 06/06/2018 1 [facility] DUAL ELIGIBLE (MEDICARE REPLACEMENT/ ADVANTAGE - HMO) [facility] Sangita Umana [id number] Sangita Umana 06/06/2018 2 [facility] (MEDICAID HMO) Sangita Umana [id number] Sangita Umana 06/19/2018 1 [facility] - DUAL ELIG[facility] (MEDICARE REPLACEMENT/ ADVANTAGE - HMO) [facility] Sangita Grace Dong [id number] Sangita C Dong 06/19/2018 2 [facility] (MEDICAID HMO) Sangita Grace Dong [id number] Sangita Umana Notes Date Note Type Note Provider Name and Address Organization Details Recorded Time 06/06/2018 text/html [facility] 1Reported bypatient.Notes:Saqib nieto seen for cardiac evaluation regarding palpitations and abnormal ECG her symptoms of palpitations once per week last few seconds fast and regular for 4 to 5 beats for last few years has had no chest discomfort suggestive of ischemia. The patient denies orthopnea, PND, or edema. Patient has not had palpitations, syncope or near syncope[place] [address], [place], [address], [facility] 06/06/2018 18:09:31 OBGyn Episode No OBEpisode recorded.
--- OUTSIDE RECORDS SUMMARY | 2024-07-07 15:23 | XMS_ITS | Data Portability ---
Author Organization [facility] Address [address] [place] [address] Care Team Providers Care Regulated Program Manager Name Role Phone MARIA GARCIA OTHER MARY BOLIVAR Primary Care Provider Assessment No assessment recorded. Plan of Treatment Reminders Order Date Submit Date Provider Last Modified By Organization Details Last Modified Time Details Appointments None recorded. Lab None recorded. Referral dermatologi st referral 2022 023 [email or web address] [facility], [address], [address], [place], [address], 3 15:06:17 cardiologis t referral 2021 022 [facility], [address], [address], [place], [address], 3 14:31:58 physical therapist referral 2021 022 Counts include 234 beds at the [facility], [address], [address], [place], [address], 2 10:21:30 Procedures lexiscan cardiolite stress test (PROC) 2021 022 [email or web address] Not available 14:14:52 Surgeries None recorded. Imaging None recorded. Medication Orders Kenalog 40 mg/mL suspension for injection 2022 [facility]23 [id number], [address], [place], [place], [id number], 3 16:17:39 methylpredn isolone 4 mg tablets in a dose pack 2021 [facility]80495, [address], [place], [place], [id number], 2 18:42:42 Lexiscan 0.4 mg/5 mL intravenous syringe 2021 [email or web address] 1 [facility] #[id number], [address], [place], [place], [id number], 10:37:35 mupirocin 2 % topical ointment 2021 [facility] #[id number], [address], [place], [place], [id number], 13:03:36 montelukast 10 mg tablet 2021 [facility] #13537, [address], [place], [place], [id number], 13:03:37 ProAir HFA 90 mcg/actuati on aerosol inhaler 2021 [facility] #39869, [address], [place], [place], [id number], 2 13:03:37 duloxetine 60 mg capsule,del ayed release 2021 [facility] #[id number], [address], [place], [place], [id number], 2 13:03:38 metoprolol succinate ER 25 mg tablet,exte nded release 24 hr 2021 022 DEV [facility] #[id number], [address], [place], [place], [id number], 13:03:37 Patient TargetsNo targets recorded. Patient Instructions Encounter Date Encounter Id Patient Instructions Last Modified By Organization Details Last Modified Time 03/06/2022 [id number] depression treatment: care instructions ctoronto Not available 03/06/2022 21:24:17 05/11/2022 [id number] depression treatment: care instructions ctoronto Not available 05/11/2022 20:01:49 coordination of care* - no car - needs assistance for transport for epidural injection - grocery assistance [email or web address] Not available 05/23/2022 18:16:41 Reason for Referral Physical Therapist Referral for Tendinitis of right shoulder Referring Physician: Mary [place] [facility], Encounter Date: 12/15/2021 Glass Blower Helper Referral for Ac jaci non-ST segment elevation myocardial infarction Referring Physician: Mary [place] [facility], Encounter Date: 12/15/2021 Data Center Technician Referral for B nehemiah cell carcinoma of skin Referring Physician: Mary [facility], Encounter Date: 05/11/2022 Results Created Date Observation Date Name Description Value Unit Range Abnormal Flag Note LastModifiedBy Organization Detail LastModifiedTime 12/16/1912/15/2021 COMPL ETE BLOOD COUNT WITH AUTO DIFF white blood cell 8.1 K/uL 4.4-10 .8 Not Available [facility] [place] [address] [place], [address], 12/15/2021 23:05:23 12/16/19 22 12/15/2021 COMPL ETE BLOOD COUNT WITH AUTO DIFF red blood cell 3.99 M/uL 4.02-5 .18 low Not Available [facility] [place] [address] [facility] [place], [address], 12/15/2021 23:05:23 12/16/19 22 12/15/2021 COMPL ETE BLOOD COUNT WITH AUTO DIFF hemoglobin 13.1 g/dL 11.5-1 5.5 Not Available [facility] [place] [address], [place], [address], 12/15/2021 23:05:23 12/16/19 22 12/15/2021 COMPL ETE BLOOD COUNT WITH AUTO DIFF hematocrit 39.5 % 36.0-4 8.0 Not Available [facility] [place] [address], [place], [address], 12/15/2021 23:05:23 12/16/19 22 12/15/2021 COMPL ETE BLOOD COUNT WITH AUTO DIFF mean corpuscular volume 99.0 fL 80.0-9 7.0 high Not Available [facility] [place] [address], [place], [address], 12/15/2021 23:05:23 12/16/19 22 12/15/2021 COMPL ETE BLOOD COUNT WITH AUTO DIFF mean corpuscular hemoglobin 32.8 pg 25.8-3 2.9 Not Available [facility] [place] [address], [place], [address], 12/15/2021 23:05:23 12/16/19 22 12/15/2021 COMPL ETE BLOOD COUNT WITH AUTO DIFF mean corpuscular hemoglobin concentratio n 33.2 g/dL 31.0-3 5.0 Not Available [facility] [place] [address], [place], [address], 12/15/2021 23:05:23 12/16/19 22 12/15/2021 COMPL ETE BLOOD COUNT WITH AUTO DIFF red cell distribution width 14.2 % 11.1-1 5.1 Not Available [facility] [place] [address], [place], [address], 12/15/2021 23:05:23 12/16/19 22 12/15/2021 COMPL ETE BLOOD COUNT WITH AUTO DIFF platelets 258 K/uL 140-40 0 Not Available [facility] [place] [address], [place], [address], 12/15/2021 23:05:23 12/16/19 22 12/15/2021 COMPL ETE BLOOD COUNT WITH AUTO DIFF mean platelet volume 10.3 fL 7.5-14 .0 Not Available [facility] [place] [address], [place], [address], 12/15/2021 23:05:23 12/16/19 22 12/15/2021 COMPL ETE BLOOD COUNT WITH AUTO DIFF neutrophil, percentage 67.8 % 38.8-7 6.4 Not Available [facility] [place] [address], [place], [address], 12/15/2021 23:05:23 12/16/19 22 12/15/2021 COMPL ETE BLOOD COUNT WITH AUTO DIFF lymphocyte, percentage 24.1 % 17.8-4 6.6 Not Available [facility] [place] [address], [place], [address], 12/15/2021 23:05:23 12/16/19 22 12/15/2021 COMPL ETE BLOOD COUNT WITH AUTO DIFF monocyte, percentage 4.8 % 3.0-11 .0 Not Available [facility] [place] [address], [place], [address], 12/15/2021 23:05:23 12/16/19 22 12/15/2021 COMPL ETE BLOOD COUNT WITH AUTO DIFF eosinophil, percentage 2.0 % 0.0-6. 0 Not Available [facility] [place] [address], [place], [address], 12/15/2021 23:05:23 12/16/19 22 12/15/2021 COMPL ETE BLOOD COUNT WITH AUTO DIFF basophil, percentage 0.9 % 0.0-2. 0 Not Available [facility] [place] [address] [place], [address], 12/15/2021 23:05:23 12/16/19 22 12/15/2021 COMPL ETE BLOOD COUNT WITH AUTO DIFF neutrophil, absolute 5.5 K/uL 1.9-7. 9 Not Available [facility] [place] [address] [place], [address], 12/15/2021 23:05:23 12/16/19 22 12/15/2021 COMPL ETE BLOOD COUNT WITH AUTO DIFF lymphocyte, absolute 2.0 K/uL 1.0-4. 9 Not Available [facility] [place] [address] [place], [address], 12/15/2021 23:05:23 12/16/19 22 12/15/2021 COMPL ETE BLOOD COUNT WITH AUTO DIFF monocyte, absolute 0.4 K/uL 0.1-1. 2 Not Available [facility] [place] [address] [place], [address], 12/15/2021 23:05:23 12/16/19 22 12/15/2021 COMPL ETE BLOOD COUNT WITH AUTO DIFF eosinophil, absolute 0.2 K/uL 0.0-0. 7 Not Available [facility] [place] [address] [place], [address], 12/15/2021 23:05:23 12/16/19 22 12/15/2021 COMPL ETE BLOOD COUNT WITH AUTO DIFF basophil, absolute 0.1 K/uL 0.0-0. 2 Not Available [facility] [place] [address] [place], [address], 12/15/2021 23:05:23 12/16/19 22 12/15/2021 COMPL ETE BLOOD COUNT WITH AUTO DIFF immature granulocytes % 0.4 % 0.0-3. 0 Not Available [facility] [place] [address] [place], [address], 12/15/2021 23:05:23 12/16/19 22 12/15/2021 COMPL ETE BLOOD COUNT WITH AUTO DIFF immature granulocytes # 0.0 K/uL 0.0-0. 3 Not Available [facility] [place] [address] [place], [address], 12/15/2021 23:05:23 12/16/19 22 12/15/2021 COMPL ETE BLOOD COUNT WITH AUTO DIFF nucleated red blood cell % 0.0 % 0.0-0. 0 Not Available [facility] [place] [address] [place], [address], 12/15/2021 23:05:23 12/16/19 22 12/15/2021 COMPL ETE BLOOD COUNT WITH AUTO DIFF nucleated red blood cell # 0.0 K/uL 0.0-0. 0 Not Available [facility] [place] [address] [place], [address], 12/15/2021 23:05:23 12/16/19 22 12/15/2021 CREAT INE KINAS E creatine kinase 78 U/L 25-160 Not Available [facility] [place] [address] [place], [address], 12/15/2021 23:05:24 12/16/19 22 12/15/2021 COMPR EHENS ANDRIY METAB OLIC PANEL W/EGF R (14) glucose, random 152 mg/dL 70-100 high Not Available [facility] [place] [address], [place], [address], 12/15/2021 23:05:24 12/16/19 22 12/15/2021 COMPR EHENS ANDRIY METAB OLIC PANEL W/EGF R (14) BUN 34 mg/dL 8-25 high Not Available [facility] [place] [address], [place], [address], 12/15/2021 23:05:24 12/16/19 22 12/15/2021 COMPR EHENS ANDRIY METAB OLIC PANEL W/EGF R (14) creatinine 1.1 mg/dL 0.6-1. 4 For patie nts >49 years of age, the refer ence limit for Creat inine is appro ximat tessa 13% highe r for peopl e ident ified as Afric an-Am lorraine n. Not Available [facility] [place] [address], [place], [address], 12/15/2021 23:05:24 12/16/19 22 12/15/2021 COMPR EHENS ANDRIY METAB OLIC PANEL W/EGF R (14) eGFR 61 mL/mi n/1.7 3m2 Note: Chron ic kidne y disea se (CKD) is defin ed as eithe r kidne y damag e or persi stent reduc tion for 3 month s or more in an EGFR <60 ml/mi n/1.7 3 m2. Patie nts with EGFR value s > / =60 ml/mi n/1.7 3 m2 may also have CKD if evide nce of persi stent prote inuri a is prese nt. Refer to www.k doqi. org for addit ional infor shane amado on CKD. Not Available [facility] [place] [address], [place], [address], 12/15/2021 23:05:24 12/16/19 22 12/15/2021 COMPR EHENS ANDRIY METAB OLIC PANEL W/EGF R (14) eGFR non- 50 mL/mi n/1.7 3m2 Note: Chron ic kidne y disea se (CKD) is defin ed as eithe r kidne y damag e or persi stent reduc tion for 3 month s or more in an EGFR <60 ml/mi n/1.7 3 m2. Patie nts with EGFR value s > / =60 ml/mi n/1.7 3 m2 may also have CKD if evide nce of persi stent prote inuri a is prese nt. Refer to www.k doqi. org for addit ional infor shane amado on CKD. Not Available [facility] [place] [address] [place], [address], 12/15/2021 23:05:24 12/16/19 22 12/15/2021 COMPR EHENS ANDRIY METAB OLIC PANEL W/EGF R (14) BUN/creat ratio 31 ratio 10-28 high Not Available [facility] [place] [address] [place], [address], 12/15/2021 23:05:24 12/16/19 22 12/15/2021 COMPR EHENS ANDRIY METAB OLIC PANEL W/EGF R (14) bilirubin, total 0.4 mg/dL 0.2-1. 3 Not Available [facility] [place] [address] [place], [address], 12/15/2021 23:05:24 12/16/19 22 12/15/2021 COMPR EHENS ANDRIY METAB OLIC PANEL W/EGF R (14) AST (SGOT) 53 U/L 14-36 high Not Available [facility] [place] [address] [place], [address], 12/15/2021 23:05:24 12/16/19 22 12/15/2021 COMPR EHENS ANDRIY METAB OLIC PANEL W/EGF R (14) ALT (SGPT) 83 U/L 7-41 high Not Available [facility] [place] [address] [place], [address], 12/15/2021 23:05:24 12/16/19 22 12/15/2021 COMPR EHENS ANDRIY METAB OLIC PANEL W/EGF R (14) alkaline phosphatase 66 U/L 40-135 Not Available [facility] [place] [address] [place], [address], 12/15/2021 23:05:24 12/16/19 22 12/15/2021 COMPR EHENS ANDRIY METAB OLIC PANEL W/EGF R (14) calcium 9.1 mg/dL 8.4-10 .2 Not Available [facility] [place] [address] [place], [address], 12/15/2021 23:05:24 12/16/19 22 12/15/2021 COMPR EHENS ANDRIY METAB OLIC PANEL W/EGF R (14) sodium 137 mmol/ L 134-14 4 Not Available [facility] [place] [address] [place], [address], 12/15/2021 23:05:24 12/16/19 22 12/15/2021 COMPR EHENS ANDRIY METAB OLIC PANEL W/EGF R (14) potassium 4.2 mmol/ L 3.5-5. 2 Not Available [facility] [place] [address] [place], [address], 12/15/2021 23:05:24 12/16/19 22 12/15/2021 COMPR EHENS ANDRIY METAB OLIC PANEL W/EGF R (14) chloride 105 mmol/ L 96-110 Not Available [facility] [place] [address] [place], [address], 12/15/2021 23:05:24 12/16/19 22 12/15/2021 COMPR EHENS ANDRIY METAB OLIC PANEL W/EGF R (14) CO2 23 mmol/ L 22-30 Not Available [facility] [place] [address] [place], [address], 12/15/2021 23:05:24 12/16/19 22 12/15/2021 COMPR EHENS ANDRIY METAB OLIC PANEL W/EGF R (14) total protein 6.9 g/dL 6.3-8. 2 Not Available [facility] [place] [address] [place], [address], 12/15/2021 23:05:24 12/16/19 22 12/15/2021 COMPR EHENS ANDRIY METAB OLIC PANEL W/EGF R (14) albumin 4.4 g/dL 3.5-5. 0 Not Available [facility] [place] [address] [place], [address], 12/15/2021 23:05:24 12/16/19 22 12/15/2021 COMPR EHENS ANDRIY METAB OLIC PANEL W/EGF R (14) globulin 2.5 g/dL 2.0-3. 7 Not Available [facility] [place] [address] [place], [address], 12/15/2021 23:05:24 12/16/19 22 12/15/2021 COMPR EHENS ANDRIY METAB OLIC PANEL W/EGF R (14) albumin/glob ulin 1.8 ratio 1.0-2. 4 Not Available [facility] [place] [address] [place], [address], 12/15/2021 23:05:24 12/16/19 22 12/15/2021 COMPR EHENS ANDRIY METAB OLIC PANEL W/EGF R (14) anion gap 8 ratio 4-18 Not Available [facility] [place] [address] [place], [address], 12/15/2021 23:05:24 12/16/19 22 12/15/2021 TSH RFLX TO FREE T4 TSH 1.08 mIU/L 0.45-4 .50 Not Available [facility] [place] [address], [place], [address], 12/15/2021 23:05:25 12/16/19 22 12/15/2021 URINA LYSIS WITH MICRO SCOPI C REFLX CULTU RE urine color LIGHT- YELLOW yellow abnormal Not Available [facility] [place] [address], [place], [address], 12/15/2021 23:05:26 12/16/19 22 12/15/2021 URINA LYSIS WITH MICRO SCOPI C REFLX CULTU RE urine clarity CLEAR clear Not Available [facility] [place] [address], [place], [address], 12/15/2021 23:05:26 12/16/19 22 12/15/2021 URINA LYSIS WITH MICRO SCOPI C REFLX CULTU RE urine glucose NEGATI VE negati ve Not Available [facility] [place] [address], [place], [address], 12/15/2021 23:05:26 12/16/19 22 12/15/2021 URINA LYSIS WITH MICRO SCOPI C REFLX CULTU RE urine ketones NEGATI VE negati ve Not Available [facility] [place] [address], [place], [address], 12/15/2021 23:05:26 12/16/19 22 12/15/2021 URINA LYSIS WITH MICRO SCOPI C REFLX CULTU RE urine bilirubin NEGATI VE negati ve Not Available [facility] [place] [address], [place], [address], 12/15/2021 23:05:26 12/16/19 22 12/15/2021 URINA LYSIS WITH MICRO SCOPI C REFLX CULTU RE urine specific gravity 1.011 1.005- 1.030 Not Available [facility] [place] [address], [place], [address], 12/15/2021 23:05:26 12/16/19 22 12/15/2021 URINA LYSIS WITH MICRO SCOPI C REFLX CULTU RE urine pH 5.5 5.0-7. 0 Not Available [facility] [place] [address], [place], [address], 12/15/2021 23:05:26 12/16/19 22 12/15/2021 URINA LYSIS WITH MICRO SCOPI C REFLX CULTU RE urine hemoglobin TRACE negati ve abnormal Not Available [facility] [place] [address], [place], [address], 12/15/2021 23:05:26 12/16/19 22 12/15/2021 URINA LYSIS WITH MICRO SCOPI C REFLX CULTU RE urine protein NEGATI VE negati ve Not Available [facility] [place] [address], [place], [address], 12/15/2021 23:05:26 12/16/19 22 12/15/2021 URINA LYSIS WITH MICRO SCOPI C REFLX CULTU RE urine urobilinogen NORMAL mg/dL normal Not Available [facility] [place] [address], [place], [address], 12/15/2021 23:05:26 12/16/19 22 12/15/2021 URINA LYSIS WITH MICRO SCOPI C REFLX CULTU RE urine nitrate NEGATI VE negati ve Not Available [facility] [place] [address], [place], [address], 12/15/2021 23:05:26 12/16/19 22 12/15/2021 URINA LYSIS WITH MICRO SCOPI C REFLX CULTU RE urine leukocyte esterase NEGATI VE chris/u L negati ve Not Available [facility] [place] [address], [place], [address], 12/15/2021 23:05:26 12/16/19 22 12/15/2021 URINA LYSIS WITH MICRO SCOPI C REFLX CULTU RE urine white blood cells <6 /hpf <[address] [facility] [place] [address] [facility] [address] [facility], [place], [address], 12/15/2021 23:05:26 12/16/19 22 12/15/2021 URINA LYSIS WITH MICRO SCOPI C REFLX CULTU RE urine red blood cells <5 /hpf <[address] [facility] [place] [address] [facility], [place], [address], 12/15/2021 23:05:26 12/16/19 22 12/15/2021 URINA LYSIS WITH MICRO SCOPI C REFLX CULTU RE urine bacteria NEGATI VE /hpf negati ve Not Available [facility] [place] [address] [facility], [place], [address], 12/15/2021 23:05:26 12/16/19 22 12/15/2021 URINA LYSIS WITH MICRO SCOPI C REFLX CULTU RE urine squamous epithelial cells FEW /hpf few Not Available [facility] [place] [address], [place], [address], 12/15/2021 23:05:26 12/16/19 22 12/15/2021 MICRO ALBUM IN/CR EATIN INE RATIO , RANDO M albumin, urine <3.0 Noah ified by qasim black sheila sis Not Available [address], [address], 12/16/2021 16:11:33 12/16/19 22 12/15/2021 MICRO ALBUM IN/CR EATIN INE RATIO , RANDO M alb/creat ratio <7 Tena l: 0 - 29 Moder ately incre ased: 30 - 300 Sever tessa incre ased: >300 Not Available [facility] [address] [place], [address], 12/16/2021 16:11:33 12/16/19 22 12/16/2021 MICRO ALBUM IN/CR EATIN INE RATIO , RANDO M creatinine, urine 43.7 mg/dL not estab. normal Not Available [facility] [address] [place], [address], 12/16/2021 16:11:33 01/10/20 22 11/08/2021 US, echoc ardio gram, trans thora cic, compl ete, w/ color flow No observ ation record ed. [email or web address] Not Available 01/09 12:25:18 01/10/20 22 11/07/2021 CT, chest , w/ contr ast No observ ation record ed. [email or web address] Not Available 01/09 12:26:35 01/10/20 22 11/08/2021 elect rocar diogr am No observ ation record ed. [email or web address] Not Available 01/09 13:04:25 02/28/20 22 02/21/2022 karla can cardi olite stres s test (PROC ) No observ ation record ed. DEV Not Available 2021 10:55:58 02/28/2002/21/2022 myoca rdial perfu lilia study w/ eject ion fract ion (PROC ) No observ ation record ed. [email or web address] Not Available 2021 13:18:12 02/28/20 22 02/21/2022 karla can cardi olite stres s test (PROC ) No observ ation record ed. [email or web address] Not Available 2021 13:18:46 Result Notes None recorded. Problems Name Problem SNOMED Code Status Onset Date Resolution Date Notes Provider Name and Address Organization Details Recorded Time Mixed anxiety and depressiv e disorder 995909653 Active APRIL DyerP [address], [place], [address] , [facility] 6 23:05:09 Degenerat ion of lumbar intervert ebral disc 19262044 Active APRIL DyerP [address], [place], [address] , [facility] 6 23:05:09 Cigarette smoker 31483008 Active APRIL DyerP [address], [place], [address] , [facility] 6 23:05:09 Degenerat ion of lumbosacr al intervert ebral disc 16718452 Active APRIL DyerP [address], [place], [address] , [facility] 6 23:05:09 Increased frequency of urination 625191043 Active 2017 APRIL DyerP [address], [place], [address] , [facility] 8 17:30:33 Visual disturban ce 33720799 Active 2017 Mary Bolivar [facility] [address], [place], [address] , [facility] 8 17:35:59 Mild memory disturban ce 841638355 Active 2017 Mary Bolivar [facility] [address], [place], [address] , [facility] 8 20:54:57 Long-term current use of opiate analgesic drug 42733458498 4108 Active 2017 Mary Bolivar [facility] [address], [place], [address] , [facility] 8 21:00:28 Overweigh t 802999189 Active 2017 APRIL DyerP [address], [place], [address] , [place] [facility] 8 17:16:33 History of hepatitis C 08592028822 101 Active 2017 APRIL DyerP [address], [place], [address] , [place] [facility] 8 17:18:05 Malaise and fatigue 149086141 Active 2017 APRIL DyerP [address], [place], [address] , [place] [facility] 8 17:19:09 Intermitt ent palpitati ons 960899794 Active 2017 APRIL DyerP [address], [place], [address] , [facility] 8 17:39:53 Blood glucose outside reference range 966423783 Active 2018 APRIL DyerP [address], [place], [address] , [place] [facility] 9 18:44:22 Spinal stenosis in cervical region 29657730 Active 2018 APRIL DyerP [address], [place], [address] , [place] [facility] 9 15:58:06 Lumbar post-lami nectomy syndrome 357928165 Active 2018 Mary Bolivar [employer] [address], [place], [address] , [place] [facility] 9 16:04:11 Palpitati ons 77356959 Active 2017 Not Available [facility] 0 10:47:05 Acute injury of kidney [id number] 430380 Active 2021 Mary Bolivar [employer] [address], [place], [address] , [facility] 2 17:55:57 Rhabdomyo lysis [id number] Active 2021 [facility], [employer] [address], [place], [address] , [facility] 2 17:56:19 Acute non-ST segment elevation myocardia l infarctio n [id number] Active 2021 [facility], [employer]ATOR [address], [place], [address] , [facility] 2 18:04:07 Body mass index 20-24 - normal 775429789 Active 2021 [facility], [employer]ATOR [address], [place], [address] , [facility] 2 22:02:51 Tendiniti s of right shoulder [id number] 50028 Active 2021 [facility], [employer]ATOR [address], [place], [address] , [facility] 2 12:45:33 Superfici al injury of foot without infection 72312505 Active 2021 [facility], [employer]ATOR [address], [place], [place], [address] , [facility] 2 12:51:42 Infection of skin 384396081 Active 2021 [facility], [employer] [address], [place], [address] , [facility] 2 12:56:57 Liver enzymes level above reference range 934020493 Active 2021 [facility], [employer] [address], [place], [address] , [facility] 2 16:01:49 Celluliti s of foot 416230653 Active 2021 [facility], [employer] [address], [place], [address] , [facility] 2 22:38:23 Headache 65735741 Active 2021 Mary Bolivar, [employer] [address], [place], [address] , [facility] 2 23:51:23 Liver function tests outside reference range 832761984 Active 2021 Mary Bolivar [employer] [address], [place], [address] , [facility] 2 18:25:35 Lumbar radiculop athy 926152799 Active 2021 Mary Bolivar [employer] [address], [place], [address] , [facility] 2 15:21:10 Basal cell carcinoma of skin 232397343 Active 2022 APRIL DyerP [address], [place], [address] , [facility] 3 15:35:25 Lumbago with sciatica 492859445 Active 2022 ASHTYN Dyer [address], [place], [address] , [facility] 3 15:47:59 Finding of hand region 565643155 Completed 05/10/2015 ASHTYN Dyer [address], [place], [address] , [facility] 6 23:05:09 Gastroeso phageal reflux disease 893598661 Active Mary Bolivar [employer] [address], [place], [address] , [facility] 6 23:05:09 Chronic pain syndrome 507686321 Active APRIL DyerP [address], [place], [address] , [facility] 6 23:05:09 Cough 56823460 Completed 08/06/2017 Mary [place], [employer] [address], [place], [address] , [facility] 8 17:19:04 Menopausa l symptom 17294144 Active [facility], [employer] [address], [place], [address] , [facility] 6 23:05:09 Benign essential hypertens ion 7920600 Active [facility], [employer] [address], [place], [address] , [facility] 6 23:05:09 Benign essential hypertens ion 5600398 Completed 05/10/2010 [facility], [employer] [address], [place], [address] , [facility] 6 23:05:09 Acute hepatitis C 729124480 Completed 02/11/2018 [facility], [employer] [address], [place], [address] , [facility] 8 17:17:48 Feeling nervous [id number] [facility], [employer] [address], [place], [address] , [facility] 6 23:05:09 Degenerat andriy joint disease involving multiple joints [id number] [facility], [employer] [address], [place], [address] , [facility] 6 23:05:09 Depressiv e disorder [id number] [facility], [employer] [address], [place], [address] , [facility] 6 23:05:09 Closed fracture of phalanx of foot 88951784 [facility], [employer] [address], [place], [address] , [facility] 6 23:05:09 Tobacco dependenc e syndrome 47240395 Completed 08/06/2017 Mary Bolivar, [employer] [address], [place], [address] , [facility] 8 17:22:06 Shoulder joint pain 324247517 Active Mary Bolivar, [employer]ATOR [address], [place], [address] , [facility] 6 23:05:09 Carpal tunnel syndrome 86948710 Active Mary Bolivar, [employer] [address], [place], [address] , [facility] 6 23:05:09 Obesity 353630465 Active Mary Bolivar [employer] [address], [place], [address] , [facility] 6 23:05:09 Osteopeni a 778830155 Active APRIL DyerP [address], [place], [address] , [facility] 6 23:05:09 Low back pain 453907692 Completed 08/06/2017 APRIL DyerP [address], [place], [address] , [facility] 8 20:57:40 Asthma 917734443 Active Mary Bolivar [employer] [address], [place], [address] , [facility] 6 23:05:09 Problem Notes None recorded. Procedures Surgical History Date Name Laterality Status Provider Name and Address Organization Details Recorded Time 02/22/20 22 Stress MPI INITIAL - Lexiscan (IAC) completed Rebecca Matthew [facility] 02/21/2022 14:09:56 02/22/20 Stress MPI RESULT - Normal (IAC) [place] [address], [place], [address], [facility] 02/27/2022 10:37:33 12/30/19 21 Knee Replacement completed Mary Bolivar, [employer] [address], [place], [address], [facility] 11/29/2021 17:59:04 08/07/19 18 PCM Nicotine SMOKING completed Pascaledaniel Chu [facility] 08/06/2017 16:48:59 08/19/19 17 PCMH Nicotine SMOKING completed SUNG Marsh [facility] 08/18/2016 19:24:27 05/15/19 17 PCM Nicotine SMOKING completed Rakan Chase [facility] 05/15/2016 18:20:54 05/15/19 17 [facility] Depression Screening PHQ9 completed Rakan Chase [facility] 05/15/2016 18:20:44 04/30/19 10 Other (Please specify) completed Not Available [facility] 03/23/2011 02:44:30 04/30/19 09 Hip Surgery completed Not Available [facility] 03/23/2011 02:44:30 04/30/19 00 Tubal Ligation completed Not Available [facility] 03/23/2011 02:44:30 04/30/18 99 Cholecystectomy completed Not Available [facility] 03/23/2011 02:44:30 Gallbladder Surgery completed Alla Mccabe [facility] 01/11/2022 16:28:45 Back Surgery completed Alla Mccabe [facility] 01/11/2022 16:28:45 Joint Replacement completed Chula Mccabe [facility] 01/11/2022 16:28:45 Spine Surgery (Cervical, Thoracic, Lumbar) completed Alla Mccabe [facility] 01/11/2022 16:28:45 Section completed Mary Bolivar, [employer]PERATOR [address], [place], [address], [facility] 03/06/2022 18:43:29 Breast Surgery (Lumpectomy, Biopsy, Implants) completed Mary Bolivar, [employer]ATOR [address], [place], [address], [facility] 03/06/2022 18:43:29 Carpal tunnel surgery completed Mary Bolivar, [employer] OPERATOR [address], [place], [address], [place] [facility] 06/12/2017 11:13:47 Imaging Results Imaging Date Name Status LastModified by Organization Details LastModified Time 11/08/2021 US, echocardiogram, transthoracic, complete, w/ color flow completed [email or web address] Information not available 01/09/2022 12:25:18 11/07/2021 CT, chest, w/ contrast completed [email or web address] Information not available 01/09/2022 12:26:35 11/08/2021 electrocardiogram completed [email or web address] Informa tion not available 01/09/2022 13:04:25 02/21/2022 lexiscan cardiolite stress test (PROC) completed DEV Information not available 03/01/2022 10:55:58 02/21/2022 myocardial perfusion study w/ ejection fraction (PROC) completed Information not available 02/27/2022 13:18:12 02/21/2022 lexiscan cardiolite stress test (PROC) completed Information not available 02/27/2022 13:18:46 Procedure Notes None recorded. Medical Equipment None Reported. Allergies No known drug allergies Medications Name Sig Start Date Stop Date Status Note LastModified by Organization Details LastModified Time carisoprodo l 350 mg tablet active Not Available Not Available Not Available cyclobenzap rine 10 mg tablet Take 1 tablet every day by oral route. active Not Available Not Available No t Available amoxicillin 500 mg capsule 05/15 completed Not Available Not Available Not Available methocarbam ol 500 mg tablet Take 1 tablet twice a day by oral route. 11/29 completed Not Available Not Available Not Available fentanyl 50 mcg/hr transdermal patch 09/02 completed Not Available Not Available Not Available bupropion HCl SR 150 mg tablet,12 hr sustained-r elease active Not Available Not Available Not Available clonidine HCl 0.1 mg tablet 09/02 completed Not Available Not Available Not Available nicotine 14 mg/24 hr daily transdermal patch Apply 1 patch every day by transderm al route for 14 days. 02/11 completed Not Available Not Available Not Available nabumetone 750 mg tablet Take 1 tablet twice a day by oral route. 09/02 completed Not Available Not Available Not Available enalapril maleate 10 mg tablet active Not Available Not Available No t Available albuterol sulfate 2.5 mg/3 mL (0.083 %) solution for nebulizatio n active Not Available Not Available Not Available trazodone 50 mg tablet Take 1 tablet every day by oral route as needed for 30 days. active Not Available Not Available No t Available lisinopril 20 mg-hydrochl orothiazide 12.5 mg tablet TAKE ONE TABLET BY MOUTH ONE TIME DAILY 02/11 completed Not Available Not Available Not Available azithromyci n 250 mg tablet 2 tabs on day 1 then 1 tab on days 2-5 active Not Available Not Available No t Available tizanidine 4 mg tablet Take 1 tablet every 8 hours by oral route. 09/02 completed Not Available Not Available Not Available fluconazole 150 mg tablet active Not Available Not Available Not Available metoprolol succinate ER 50 mg tablet,exte nded release 24 hr Take 1 tablet every day by oral route. 11/29 completed Not Available Not Available Not Available Senna Lax 8.6 mg tablet Take 2 tablets every day by oral route as needed. active Not Available Not Available No t Available enalapril maleate 20 mg tablet active Not Available Not Available No t Available meloxicam 15 mg tablet 11/12 completed Not Available Not Available Not Available promethazin e 12.5 mg tablet active Not Available Not Available Not Available sertraline 100 mg tablet active Not Available Not Available Not Available diphenoxyla te-atropine 2.5 mg-0.025 mg tablet active Not Available Not Available Not Available topiramate 25 mg tablet active Not Available Not Available Not Available amlodipine 5 mg tablet Take 1 tablet every day by oral route. 01/11 completed Not Available Not Available Not Available sulfamethox azole 800 mg-trimetho prim 160 mg tablet active Not Available Not Available Not Available aspirin 81 mg tablet,bria yed release TAKE 1 TABLET BY MOUTH EVERY DAY active Not Available Not Available No t Available doxycycline monohydrate 100 mg tablet TAKE 1 TABLET BY MOUTH TWICE DAILY FOR 7 DAYS 01/11 completed Not Available Not Available Not Available oxycodone 15 mg tablet QID 11/29 completed Not Available Not Available Not Available Kenalog 40 mg/mL suspension for injection Take 1 mL every day by injection route. 2022 active Not Available Not Available Not Avai lable Celebrex 200 mg capsule active Not Available Not Available Not Available meloxicam 7.5 mg tablet Take 1 tablet every day by oral route. 09/02 completed Not Available Not Available Not Available alendronate 35 mg tablet active Not Available Not Available Not Available oxycodone-a cetaminophe n 5 mg-325 mg tablet TAKE 1 TABLET BY MOUTH EVERY 8 HOURS NEEDED active Not Available Not Available No t Available magnesium oxide 400 mg (241.3 mg magnesium) tablet active Not Available Not Available Not Available lorazepam 0.5 mg tablet Take 1 tablet one time per A DAY by oral route. 08/06 completed Not Available Not Available Not Available Fosamax 70 mg tablet active 1 WK Not Available Not Available No t Available Imodium A-D 2 mg tablet Take 1 tablet 4 times a day by oral route as needed. 06/06 completed Not Available Not Available Not Available trazodone 100 mg tablet Take 1 tablet every day by oral route at bedtime. active Not Available Not Available No t Available lorazepam 2 mg tablet Take 1 tablet every day by oral route as needed for 30 days. active Not Available Not Available No t Available cephalexin 500 mg capsule TAKE 1 CAPSULE BY MOUTH EVERY 6 HOURS FOR 7 DAYS 01/11 completed Not Available Not Available Not Available ferrous sulfate 325 mg (65 mg iron) tablet active Not Available Not Available Not Available fluoxetine 20 mg tablet active Not Available Not Available Not Available ranitidine 150 mg tablet Take 1 tablet twice a day by oral route. active Not Available Not Available No t Available dexamethaso ne 4 mg tablet active Not Available Not Available Not Available lisinopril 10 mg tablet Take 1 tablet(s) every day by oral route. 2022 active Not Available Not Available Not Avai lable lidocaine 5 % topical patch 08/06 completed Not Available Not Available Not Available nicotine 21 mg/24 hr daily transdermal patch Apply 1 patch every day by transderm al route. 08/06 completed Not Available Not Available Not Available fluoxetine 10 mg capsule active Not Available Not Available Not Available docusate sodium 100 mg capsule Take 1 capsule twice a day by oral route as needed. active Not Available Not Available No t Available gabapentin 300 mg capsule active Not Available Not Available Not Available omeprazole 20 mg capsule,del ayed release active Not Available Not Available Not Available diclofenac sodium 75 mg tablet,bria yed release active Not Available Not Available Not Available folic acid 1 mg tablet active Not Available Not Available Not Available Epitol 200 mg tablet 05/15 completed Not Available Not Available Not Available montelukast 10 mg tablet TAKE 1 TABLET BY MOUTH EVERY DAY 2022 active Not Available Not Available Not Avai lable hydrochloro thiazide 25 mg tablet TAKE ONE TABLET BY MOUTH IN THE MORNING *DUE FOR RECHECK LABS AND OFFICE VISIT* 11/12 completed Not Available Not Available Not Available mupirocin 2 % topical ointment APPLY SMALL AMOUNT TOPICALLY TO THE AFFECTED AREA THREE TIMES DAILY active Not Available Not Available No t Available metoprolol succinate ER 25 mg tablet,exte nded release 24 hr TAKE ONE TABLET BY MOUTH AT BEDTIME 2023 active Not Available Not Available Not Avai lable oxycodone 30 mg tablet Take 1 tablet(s) every day by oral route PRN 09/02 completed Not Available Not Available Not Available fentanyl 25 mcg/hr transdermal patch Apply 1 patch every 72 hours by transderm . route. 09/02 completed Not Available Not Available Not Available polyethylen e glycol 3350 17 gram/dose oral powder 17 gms PO daily prn 05/15 completed Not Available Not Available Not Available methylpredn isolone 4 mg tablets in a dose pack FOLLOW PACKAGE DIRECTION S active Not Available Not Available No t Available albuterol sulfate HFA 90 mcg/actuati on aerosol inhaler INHALE 2 PUFFS BY MOUTH EVERY 4 HOURS NEEDED active Not Available Not Available No t Available Vitamin D2 1,250 mcg (50,000 unit) capsule active Not Available Not Available Not Available fentanyl 75 mcg/hr transdermal patch Apply 1 patch every 72 hours by transderm al route. 09/02 completed Not Available Not Available Not Available lisinopril 40 mg tablet Take 1 tablet(s) every day by oral route for 90 days. 11/29 completed Not Available Not Available Not Available ondansetron 4 mg disintegrat ing tablet 1-2 tab PO q12hrs 11/29 completed Not Available Not Available Not Available topiramate 100 mg tablet TAKE 1 TABLET BY MOUTH TWICE DAILY 2022 active Not Available Not Available Not Avai lable sertraline 50 mg tablet active Not Available Not Available Not Available lisinopril 2.5 mg tablet TAKE 1 TABLET BY MOUTH EVERY DAY 01/11 completed Not Available Not Available Not Available Lovenox 40 mg/0.4 mL subcutaneou s syringe active Not Available Not Available No t Available doxycycline hyclate 100 mg tablet active Not Available Not Available No t Available diazepam 5 mg tablet active Not Available Not Available No t Available metoclopram bonita 10 mg tablet active Not Available Not Available Not Available amoxicillin 875 mg-potassiu m clavulanate 125 mg tablet 05/15 completed Not Available Not Available Not Available nicotine 7 mg/24 hr daily transdermal patch One patch daily 02/11 completed Not Available Not Available Not Available oxycodone 5 mg tablet active Not Available Not Available No t Available bupropion HCl SR 200 mg tablet,12 hr sustained-r elease Take 1 tablet twice a day by oral route. 2010 active Not Available Not Available Not Avai lable Skelaxin 800 mg tablet active Not Available Not Available Not Available Prempro 0.3 mg-1.5 mg tablet Take 1 tablet every day by oral route. active Not Available Not Available No t Available topiramate 50 mg tablet TAKE ONE TABLET BY MOUTH TWICE DAILY 01/11 completed Not Available Not Available Not Available Spiriva with HandiHaler 18 mcg and inhalation capsules INHALE THE CONTENTS OF 1 CAPSULE EVERY DAY active Not Available Not Available No t Available duloxetine 60 mg capsule,del ayed release TAKE 1 CAPSULE BY MOUTH EVERY DAY active Not Available Not Available No t Available tizanidine 4 mg capsule active Not Available Not Available Not Available Atrovent HFA 17 mcg/actuati on aerosol inhaler Inhale 2 puffs 4 times a day by inhalatio n route. 11/12 completed Not Available Not Available Not Available fentanyl 12 mcg/hr transdermal patch active Not Available Not Available Not Available Lyrica 75 mg capsule active Not Available Not Available N ot Available Lyrica 100 mg capsule active Not Available Not Available N ot Available chlorhexidi ne gluconate 0.12 % mouthwash active Not Available Not Available No t Available Daily Multi-Vitam in active Not Available Not Available Not Available Chantix Starting Month [place] 0.5 mg (11)-1 mg (42) tablets in dose pack Take pack as directed active Not Available Not Available No t Available Chantix Continuing Month [place] 1 mg tablet active Not Available Not Available No t Available oxycodone 20 mg tablet 09/02 completed Not Available Not Available Not Available diclofenac 1 % topical gel APPLY 2 GRAMS TOPICALLY TO THE AFFECTED AREA FOUR TIMES DAILY active Not Available Not Available No t Available Lexiscan 0.4 mg/5 mL intravenous syringe IV over 10 seconds 2021 active Not Available Not Available Not Avai lable Savella 50 mg tablet active Not Available Not Available No t Available lidocaine 5 % topical ointment 08/06 completed Not Available Not Available Not Available ProAir RespiClick 90 mcg/actuati on breath activated INHALE 2 PUFFS BY MOUTH EVERY 4 HOURS 01/11 completed Not Available Not Available Not Available Belbuca 300 mcg buccal film TAKE 1 STRIP BY MOUTH TWICE DAILY active Not Available Not Available No t Available Belbuca 150 mcg buccal film APPLY 1 FILM IN MOUTH TWICE A DAY active Not Available Not Available No t Available naloxone 4 mg/actuatio n nasal spray active Not Available Not Available Not Available Shingrix (PF) 50 mcg/0.5 mL intramuscul ar suspension, kit 11/29 completed Not Available Not Available Not Available Vitals Date Recorded Body height Body mass index (BMI) Body weight Body temperature Oxygen saturation Oxygen saturation in Arterial blood by Pulse oximetry Heart rate Respiratory rate Systolic blood pressure Diastolic blood pressure Provider Name and Address Organization Details Last Updated DateTime 2 152.4 cm 21.6 kg/m2 08513.3 2 g 99.3 [degF] 99 % 99 % 69 /min 14 /min 140 mm[Hg] 80 mm[Hg] Pina Gambino [facility] 2 12:30:23 Date Recorded Body height Body mass index (BMI) Body weight Heart rate Oxygen saturation Oxygen saturation in Arterial blood by Pulse oximetry Systolic blood pressure Diastolic blood pressure Provider Name and Address Organization Details Last Updated DateTime 2 152.4 cm 23 kg/m2 19660.9 g 72 /min 98 % 98 % 122 mm[Hg] 66 mm[Hg] Alla Mccabe [facility] 2 16:38:02 Date Recorded Body height Body mass index (BMI) Body weight Body temperature Heart rate Respiratory rate Oxygen saturation Oxygen saturation in Arterial blood by Pulse oximetry Systolic blood pressure Diastolic blood pressure Provider Name and Address Organization Details Last Updated DateTime 2 152.4 cm 23.5 kg/m2 54853.1 8 g 98 [degF] 50 /min 16 /min 97 % 97 % 126 mm[Hg] 67 mm[Hg] Yin May [facility] 2 18:21:37 Date Recorded Body height Body mass index (BMI) Body weight Body temperature Respiratory rate Oxygen saturation Oxygen saturation in Arterial blood by Pulse oximetry Heart rate Systolic blood pressure Diastolic blood pressure Provider Name and Address Organization Details Last Updated DateTime 3 152.4 cm 23.4 kg/m2 44134.0 8 g 98.7 [degF] 16 /min 99 % 99 % 64 /min 110 mm[Hg] 80 mm[Hg] Pina Gambino [facility] 3 15:18:31 Social History Question Answer Notes LastModified by Organizat ion Details LastModified Time Tobacco Smoking Status Current Every Day Smoker [facility], [facility] [address], [place], [address], [facility] 03/06/2022 18:43:22 Do You Have An Advance Directive? No Information not available 01/11/2022 What Is Your Level Of Alcohol Consumption? None Clean And Sober Information not available 05/10/2015 Are You Blind Or Do You Have Difficulty Seeing? Yes [email or web address] Information not available 01/11/2022 Is Blood Transfusion Acceptable In An Emergency? Yes [email or web address] Information not available 01/11/2022 What Is Your Level Of Caffeine Consumption? Moderate [email or web address] Information not available 01/11/2022 How Much Tobacco Do You Chew? None Information not available 09/02/2018 Are You Currently Employed? No [email or web address] Information not available 01/11/2022 Are You Deaf Or Do You Have Serious Difficulty Hearing? No [email or web address] Information not available 01/11/2022 What Type Of Diet Are You Following? REGULAR Information not available 08/06/2017 What Is Your Occupation? Disability Information not available 08/06/2017 When Did You Quit Smoking? 1-5yearssince lastcigarette Information not available 11/29/2021 Which Of Your Hands Is Dominant? Right [email or web address] Information not available 01/11/2022 Marital Status Informatio n not available 03/06/2022 What Was The Date Of Your Most Recent Tobacco Screening? 05/11/2022 [email or web address] Information not available 05/11/2022 Do You Have Any Pets? No [email or web address] Information not available 01/11/2022 What Is Your Relationship Status? [email or web address] Information not available 01/11/2022 Are You Sexually Active? No Information not available 03/06/2022 At What Age Did You Start Smoking Tobacco? 47 Information not available 03/06/2022 How Much Tobacco Do You Smoke? No Rolls Own Cigarettes Information not available 03/06/2022 Do You Feel Stressed (tense, Restless, Nervous, Or Anxious, Or Unable To Sleep At Night)? [id number] [email or web address] Information not available 01/11/2022 Do You Use Any Illicit Or Recreational Drugs? No Information not available 01/11/2022 Has Tobacco Cessation Counseling Been Provided? Yes Information not available 03/06/2022 On What Date Was Tobacco Cessation Counseling Provided? 05/11/2022 Information not available 05/11/2022 How Many Years Have You Smoked Tobacco? 42 Information not available 03/06/2022 Do You Or Have You Ever Used Any Other Forms Of Tobacco Or Nicotine? No [email or web address] Information not available 01/11/2022 Sex: Unknown Functional Status Question Answer Note LastModified by Organization D etails LastModified Time Are you able to care for yourself? Yes [email or web address] Information not available 01/11/2022 What is your exercise level? Moderate [email or web address] Information not available 01/11/2022 Mental Status None recorded. Family History Relationship Description Onset Age of this Age Resolved Age Notes LastModified by Organization Details LastModified Time Father Alcoholism ctoronto Not availab le 03/06/2022 18:43:09 Mother Chronic obstructive pulmonary disease 67 smoker ctoronto Not available 2021 18:43:09 Mother Coronary arterioscler osis ctoronto Not available 2021 18:43:09 Mother Diabetes mellitus ctoronto Not available 2021 18:43:09 Mother Alzheimer's disease ctoronto Not available 2021 18:43:09 Mother History of emphysema ctoronto Not available 2021 18:43:09 Mother Hypertensive disorder [email or web address] Not available 01/11 16:28:33 Mother Hyperlipidem ia ctoronto Not available 2021 18:43:10 Mother Heart disease ctoronto Not available 2021 18:43:10 Mother Disorder of musculoskele diego system ctoronto Not available 03/06 18:43:10 Brother Coronary arterioscler osis ctoronto Not available 2021 18:43:10 Brother Hypertensive disorder Not available 01/11 16:28:33 Brother Disorder of musculoskele diego system ctoronto Not available 03/06 18:43:10 Maternal Grandmother Diabetes mellitus ctoronto Not available 2021 18:43:10 Maternal Grandmother Alzheimer's disease ctoronto Not available 2021 18:43:10 Maternal Grandmother Depressive disorder ctoronto Not available 2021 18:43:10 Maternal Grandmother Hypertensive disorder [email or web address] Not available 01/11 16:28:33 Maternal Grandmother Family history of stroke ctoronto Not available 2021 18:43:10 Maternal Grandmother Disorder of musculoskele diego system ctoronto Not available 03/06 18:43:10 Daughter Balderas's palsy 27 Lyme diseas e ctoronto Not available 03/06/2022 18:43:10 Maternal Grandfather Asthma ctoronto Not available 03/06 18:43:10 Maternal Grandfather Disorder of musculoskele diego system ctoronto Not available 03/06 18:43:10 Notes:scoliosis Medical History Condition Response Arthritis Y High Blood Pressure (Hypertension) Y Anxiety Y Osteopenia/Osteoporosis Y Overweight/Obesity Y Back/Neck Pain Y Depression Y Asthma Y Spine Disease (Herniated Disc, Scoliosis , Stenosis) Y Liver Disease/Hepatitis Y Neuropathy (Numbness, Pain, Tingling) Y Fibromyalgia Y Nerve Disease Y Gynecological History Statement/Question Response Last Mammogram 09/13/2017 Abnormal Pap N If Post Menopausal, Age at Menopause 52 Current Control Method Menopause Sexually Active? N Post Menopausal Bleeding N Obstetrics History GPAL:G 5 P 3 0 2 0 Type Value Full Term 3 Spontaneous 2 Total 5 Immunizations Vaccine Type Date Status Note Provider Nam e and Address Organization Details Recorded Time Influenza, split virus, quadrivalent, PF 4 completed Not Available [facility]17/2019 02:10:36 zoster recombinant 8 completed Pina Patullo null, [facility] 12/15/2021 12:22:52 Influenza, split virus, trivalent, preservative 0 completed Pina Patullo null, [facility] 12/15/2021 12:22:52 Influenza, split virus, quadrivalent, PF 6 completed Pina Patullo null, [facility] 12/15/2021 12:22:52 zoster recombinant 8 completed Pina Patullo null, [facility] 12/15/2021 12:22:52 Past Encounters Encounter ID Performer Location Encounter Start Date Encounter Closed Date Diagnosis/Indication Diagnosis SNOMED-CT Code Diagnosis ICD10 Code Diagnosis Note [id number] [facility] and [address] [place] [address] 05/05/2010 18:12:34 05/05/2010 19:18:30 [id number] Amaya Fine (Elenita) [facility] [address] [facility] [place] [address] 05/10/2010 17:06:55 05/10/2010 18:50:11 [id number] [facility] [address] [place] [address] 05/31/2010 18:17:55 05/31/2010 19:23:28 [id number] [facility] [address] [place] [address] 10/04/2010 17:25:28 10/04/2010 18:04:57 [id number] Amaya Guo) [facility] [address] [facility] [place] [address] 10/26/2010 15:30:56 10/26/2010 16:47:04 [id number] [facility] [address] [facility] [place] [address] 12/19/2010 19:34:25 12/19/2010 20:13:27 [id number] [facility] and [address] [facility] [place] [address] 03/17/2011 14:44:01 03/17/2011 15:31:54 [id number] [facility] and [address] [place] [address] 06/01/2011 12:28:37 06/01/2011 13:54:09 [id number] Amaya Guo) [facility] [address] [facility] [place] [address] 07/18/2012 19:08:12 07/19/2012 13:17:25 [id number] Amaya Guo) [facility] [address] [facility] [place] [address] 05/22/2013 16:22:52 05/23/2013 10:09:02 Feeling nervous 559228586 RF meds, use as directed. Tobacco de pendence syndrome 94391568 Pt unwilling to quit at this time. Cough likely related. Discussed risk of COPD. Benign ess ential hypertension 1330091 Restart meds, check labs. Acute hepatitis C 042730772 check labs. [id number] [facility] [address] [facility] [place] [address] 12/15/2013 18:32:26 12/15/2013 19:40:41 Benign essential hypertension 4379627 Check labs, continue meds. Feeling nervous 540660391 RF meds, use as directed. Obesity 503089359 Encour aged healthy diet and exercise. Carpal dorys mellissa syndrome 80828900 Send to specialist . Acute hepatitis C 203959588 check labs. [id number] Essence Knowles, DO [facility] [address] [place] [address] 01/02/2014 10:53:17 01/02/2014 15:51:25 Osteopenia 765831651 Due for DEXA scan, ordered. Tobacco de pendence syndrome 40896721 Pt unwilling to quit at this time. Discussed risk of COPD. [id number] Bess Oh [facility] and [address] [facility] [place] [address] 03/19/2014 15:04:03 03/19/2014 15:32:34 Influenza vaccine needed 7824513574 106 Asthma 565500796 RF inhaler, using occasional ly. Discussed asthma action plan. 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 F41.8 needs follow-up with psych; discuss combinatio n of Lorazepam and pain medication s can cause excessive sedation Osteopenia 636457181 M85 .80 Degenerati on of lumbar intervertebral disc 07753463 M51.36 Continue PM follow-up [id number] Kateryna Loredo [facility] [address] [facility] [place] [address] 07/13/2015 15:34:17 07/14/2015 12:42:51 Cigarette smoker 50760342 F17.210 Discuss triggers - Patch to help quit - start 21 mg/day then decrease to 14 mg/day - no smoking while on patch Mixed anxi ety and depressive disorder 907795285 F41.8 Discuss need for psych referral - OK refill Lorazepam - avoid using daily - can develop tolerance Benign ess ential hypertension 2372355 I10 continue Lisinopril /HTTZ; monitor BP [id number] Barby Rogel MD [facility] [address] [facility] [place] [address] 05/15/2016 17:34:06 05/15/2016 19:08:03 Shoulder joint pain 672477776 M25.511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
--- OUTSIDE RECORDS SUMMARY | 2024-07-07 15:23 | XMS_ITS | Data Portability ---
Author Organization [place] - [facility], [facility] - [facility] Address [address] [place] [address] Assessment No assessment recorded. Plan of Treatment Reminders Order Date Submit Date Provider Last Modified By Organization Details Last Modified Time Details Appointments None recorded. Lab culture, urine 011 [place], [facility] [address], [address], 3 04:00:47 Referral None recorded. Procedures None recorded. Surgeries None recorded. Imaging None recorded. Medication Orders Bactrim DS 800 mg-160 mg tablet 011 [facility] [id number], [address] , [place], [address], 3 04:00:47 Patient TargetsNo targets recorded. Patient InstructionsNo instructions recorded. Reason for Referral None Reported. Results Created Date Observation Date Name Description Value Unit Range Abnormal Flag Note LastModifiedBy Organization Detail LastModifiedTime 12/20/19 11 12/21/2010 cultu re, urine source urine-voided URINE- VOIDED Not Available [employer] [address], [address], 12/22/2010 03:34:08 12/20/19 11 12/21/2010 cultu re, urine culture, urine order ed test: cultu re,ur ine micro numbe r: [id number] test statu s: final speci men sourc e: urine -void ed speci men comme nts: cultu re: esche sierra a coli - 50,00 0 to 100,0 00 cfu/m L E. coli ----- ----- ----- --- amber mcg/m L ampic illin S <=2 augme ntin S <=2 cefaz irasema S <=4 cefox itin S <=4 cefep bennett S <=1 ceftr iaxon e S <=1 amika ronald S <=2 genta micin S <=1 tobra mycin S <=1 cipro floxa ronald S <=0.2 5 levof loxac in S <=0.1 2 imipe nem S <=1 nitro furan toin S <=16 trime tho/s ulfa S <=20 legen d: S = susce ptibl e I = inter media te R = resis tant * = not appli cable urine IS set up at A 1:100 0 dilut ion Not Available [employer] [address], [address], 12/22/2010 03:34:08 Result Notes None recorded. Problems Name Problem SNOMED Code Status Onset Date Resolution Date Notes Provider Name and Address Organization Details Recorded Time Dysuria 95997863 Active Not Available [facility] 01/21/2013 03:02:05 Problem Notes None recorded. Procedures Surgical History Date Name Laterality Status Provider Name and Address Organization Details Recorded Time 8 Hip Surgery completed Not Available [facility] 03/23/20 11 02:44:39 Imaging Results None recorded. Procedure Notes None recorded. Medical Equipment None Reported. Allergies No known drug allergies Medications Name Sig Start Date Stop Date Status Note LastModified by Organization Details LastModified Time carisoprodo l 350 mg tablet active Not Available Not Available Not Available amoxicillin 500 mg capsule active Not Available Not Available Not Available methocarbam ol 500 mg tablet active Not Available Not Available Not Available fentanyl 50 mcg/hr transdermal patch active Not Available Not Available Not Available clonidine HCl 0.1 mg tablet active Not Available Not Available Not Available nicotine 14 mg/24 hr daily transdermal patch active Not Available Not Available Not Available nabumetone 750 mg tablet active Not Available Not Available Not Available trazodone 50 mg tablet active Not Available Not Available Not Available lisinopril 20 mg-hydrochl orothiazide 12.5 mg tablet active Not Available Not Available Not Available tizanidine 4 mg tablet active Not Available Not Available Not Available fluconazole 150 mg tablet active Not Available Not Available Not Available Senna Lax 8.6 mg tablet active Not Available Not Available Not Available enalapril maleate 20 mg tablet active Not Available Not Available No t Available meloxicam 15 mg tablet active Not [...] No t Available oxycodone 15 mg tablet active Not Available Not Available Not Available Celebrex 200 mg capsule active Not Available Not Available Not Available meloxicam 7.5 mg tablet active Not Available Not Available Not Available alendronate 35 mg tablet active Not Available Not Available Not Available oxycodone-a cetaminophe n 5 mg-325 mg tablet TAKE 1 TABLET BY MOUTH EVERY 8 HOURS NEEDED active Not Available Not Available No t Available magnesium oxide 400 mg (241.3 mg magnesium) tablet active Not Available Not Available Not Available lorazepam 0.5 mg tablet active Not Available Not Available Not Available trazodone 100 mg tablet active Not Available Not Available Not Available lorazepam 2 mg tablet active Not Available Not Available No t Available cephalexin 500 mg capsule TAKE 1 CAPSULE BY MOUTH EVERY 6 HOURS FOR 7 DAYS active Not Available Not Available No t Available ranitidine 150 mg tablet active Not Available Not Available Not Available dexamethaso ne 4 mg tablet active Not Available Not Available Not Available lisinopril 10 mg tablet TAKE 1 TABLET BY MOUTH EVERY DAY active Not Available Not Available No t Available lidocaine 5 % topical patch active Not Available Not Available Not Available nicotine 21 mg/24 hr daily transdermal patch active Not Available Not Available Not Available fluoxetine 10 mg capsule active Not Available Not Available Not Available docusate sodium 100 mg capsule active Not Available Not Available N ot Available gabapentin 300 mg capsule active Not Available Not Available Not Available diclofenac sodium 75 mg tablet,bria yed release active Not Available Not Available Not Available folic acid 1 mg tablet active Not Available Not Available Not Available Epitol 200 mg tablet active Not Available Not Available No t Available montelukast 10 mg tablet TAKE 1 TABLET BY MOUTH EVERY DAY active Not Available Not Available No t Available hydrochloro thiazide 25 mg tablet active Not Available Not Available No t Available mupirocin 2 % topical ointment APPLY SMALL AMOUNT TOPICALLY TO THE AFFECTED AREA THREE TIMES DAILY active Not Available Not Available No t Available metoprolol succinate ER 25 mg tablet,exte nded release 24 hr TAKE 1 TABLET BY MOUTH DAILY active Not Available Not Available No t Available ergocalcife rol (vitamin D2) 1,250 mcg (50,000 unit) capsule active Not Available Not Available Not Available oxycodone 30 mg tablet active Not Available Not Available Not Available fentanyl 25 mcg/hr transdermal patch active Not Available Not Available Not Available polyethylen e glycol 3350 17 gram/dose oral powder active Not Available Not Available Not Available methylpredn isolone 4 mg tablets in a dose pack FOLLOW PACKAGE DIRECTION S active Not Available Not Available No t Available albuterol sulfate HFA 90 mcg/actuati on aerosol inhaler INHALE 2 PUFFS BY MOUTH EVERY 4 HOURS NEEDED active Not Available Not Available No t Available fentanyl 75 mcg/hr transdermal patch active Not Available Not Available Not Available lisinopril 40 mg tablet active Not Available Not Available Not Available ondansetron 4 mg disintegrat ing tablet active Not Available Not Available N ot Available topiramate 100 mg tablet TAKE 1 TABLET BY MOUTH TWICE DAILY active Not Available Not Available No t Available lisinopril 2.5 mg tablet TAKE 1 TABLET BY MOUTH EVERY DAY active Not Available Not Available No t Available amoxicillin 875 mg-potassiu m clavulanate 125 mg tablet active Not Available Not Available Not Available nicotine 7 mg/24 hr daily transdermal patch active Not Available Not Available Not Available Bactrim DS 800 mg-160 mg tablet Take 1 tablet twice a day by oral route as directed for 3 days. 12/22 completed Not Available Not Available Not Available bupropion HCl SR 200 mg tablet,12 hr sustained-r elease active Not Available Not Available Not Available Prempro 0.3 mg-1.5 mg tablet active Not Available Not Available Not Available topiramate 50 mg tablet active Not Available Not Available Not Available Spiriva with HandiHaler 18 mcg and inhalation capsules active Not Available Not Available Not Available duloxetine 60 mg capsule,del ayed release TAKE 1 CAPSULE BY MOUTH EVERY DAY active Not Available Not Available No t Available tizanidine 4 mg capsule active Not Available Not Available Not Available Atrovent HFA 17 mcg/actuati on aerosol inhaler active Not Available Not Available Not Available fentanyl 12 mcg/hr transdermal patch active Not Available Not Available Not Available Lyrica 75 mg capsule active Not Available Not Available N ot Available Lyrica 100 mg capsule active Not Available Not Available N ot Available chlorhexidi ne gluconate 0.12 % mouthwash active Not Available Not Available No t Available Chantix Starting Month [place] 0.5 mg (11)-1 mg (42) tablets in dose pack active Not Available Not Available No t Available Chantix Continuing Month [place] 1 mg tablet active Not Available Not Available No t Available oxycodone 20 mg tablet active Not Available Not Available Not Available diclofenac 1 % topical gel APPLY 2 GRAMS TOPICALLY TO THE AFFECTED AREA FOUR TIMES DAILY active Not Available Not Available No t Available Savella 50 mg tablet active Not Available Not Available No t Available lidocaine 5 % topical ointment active Not Available Not Available Not Available ProAir RespiClick 90 mcg/actuati on breath activated active Not Available Not Available No t Available Belbuca 300 mcg buccal film TAKE [...] 50 mcg/0.5 mL intramuscul ar suspension, kit active Not Available Not Available Not Available Vitals Date Recorded Body height Body weight Body mass index (BMI) Body temperature Heart rate Oxygen saturation Oxygen saturation in Arterial blood by Pulse oximetry Systolic blood pressure Diastolic blood pressure Provider Name and Address Organization Details Last Updated DateTime 1 154.94 cm 51476.2 5712 g 33.3 kg/m2 98.1 [degF] 66 /min 98 % 98 % 128 mm[Hg] 81 mm[Hg] Amaya Fine (Elenita) [facility] 1 19:46:12 Social History Question Answer Notes LastModified by Organizat ion Details LastModified Time Tobacco Smoking Status Current Every Day Smoker Not Available [facility] 03/16/2011 05:14:21 What Is Your Level Of Alcohol Consumption? None Information not available 03/16/2011 What Is Your Level Of Caffeine Consumption? Occasional 7 Information not available 03/16/2011 Education 2 Year College Information not available 03/16/2011 What Is Your Occupation? Retired 7 Information not available 03/16/2011 Marital Status Information not available 03/16/2011 Are You Sexually Active? No 7 Information not available 03/16/2011 Sex: Unknown Functional Status None recorded. Mental Status None recorded. Family History Nothing Reported. Medical History Condition Response Liver Disease/Hepatitis Y Urinary Problem Y Arthritis Y High Blood Pressure (Hypertension) Y Blood Disorder Y Osteopenia/Osteoporosis Y Fibromyalgia Y Back/Neck Pain Y Spine Disease (Herniated Disc, Scoliosis , Stenosis) Y Depression Y Gynecological HistoryNo gynecological history recorded. Obstetrics History GPAL:G 0 P 0 0 0 0 Past Encounters Encounter ID Performer Location Encounter Start Date Encounter Closed Date Diagnosis/Indication Diagnosis SNOMED-CT Code Diagnosis ICD10 Code Diagnosis Note [id number] [facility] [address] [place] [address] 05/05/2010 18:12:34 05/05/2010 19:18:30 [id number] Amaya Guo) [facility] [address] [place] [address] 05/10/2010 17:06:55 05/10/2010 18:50:11 [id number] [facility] [address] [place] [address] 05/31/2010 18:17:55 05/31/2010 19:23:28 [id number] [facility] [address] [place] [address] 10/04/2010 17:25:28 10/04/2010 18:04:57 [id number] Amaya Babatunde (Elenita) [facility] [address] [place] [address] 10/26/2010 15:30:56 10/26/2010 16:47:04 [id number] [facility] [address] [place] [address] 12/19/2010 19:34:25 12/19/2010 20:13:27 [id number] [facility] [address] [place] [address] 03/17/2011 14:44:01 03/17/2011 15:31:54 [id number] [facility] [address] [place] [address] 06/01/2011 12:28:37 06/01/2011 13:54:09 [id number] Amaya Fronek (Elenita) [facility] [address] [place] [address], [place] [address] 07/18/2012 19:08:12 07/19/2012 13:17:25 [id number] Amaya Fronek (Elenita) [facility] [address] [place] [address], [place] [address] 05/22/2013 16:22:52 05/23/2013 10:09:02 [id number] [facility] [address] [place] [address] 12/15/2013 18:32:26 12/15/2013 19:40:41 [id number] Essence Knowles, [facility] [address] [place] [address], [place] [address] 01/02/2014 10:53:17 01/02/2014 15:51:25 [id number] Bess Oh [facility] [address] [place] [address], [place] [address] 03/19/2014 15:04:03 03/19/2014 15:32:34 [id number] Carolin Gonzalez,CCM A [facility] [address] [place] [address], [place] [address] 05/10/2015 15:37:23 05/11/2015 11:24:05 [id number] Kateryna Isabeljanice [facility] [address] [place] [address] 07/13/2015 15:34:17 07/14/2015 12:42:51 [id number] Barby Rogel MD [facility] [address] [place] [address] 05/15/2016 17:34:06 05/15/2016 19:08:03 [id number] Radha Mcmahon, [facility] [address] [place] [address] 08/18/2016 19:13:26 08/21/2016 03:16:32 [id number] [facility] [address] [place] [address] 08/06/2017 16:20:46 08/06/2017 21:19:04 [id number] [facility] [address] [place] [address] 02/11/2018 16:01:06 02/11/2018 21:36:59 [id number] MD kirstin [facility] [place] [facility] [address] [place] [address] 06/06/2018 16:55:47 06/10/2018 16:39:57 [id number] Poonam Quinn MD [facility] [place] [facility] [address] [place] [address] 06/19/2018 09:21:20 06/19/2018 10:16:22 [id number] [facility] [address] [place] [address] 09/02/2018 16:58:51 09/03/2018 09:16:52 [id number] [facility] [address] [place] [address] 11/12/2018 15:01:58 11/12/2018 18:51:23 [id number] Ashtyn Bolivar, [employer] EXECUTIVE [facility] [address] [place] [address] 11/29/2021 17:04:20 11/30/2021 06:58:32 [id number] Ashtyn Bolivar, ASHTYN [facility] [address] [place] [address] 12/15/2021 12:22:05 12/16/2021 08:34:45 [id number] MD KIRSTIN [facility]an[facility] [place] [address] [place] [address] 01/11/2022 16:24:26 01/11/2022 17:30:02 [id number] Kai Davis MD [facility] [address] [place] [address] 02/21/2022 10:08:23 02/21/2022 14:16:00 [id number] Ashtyn Bolivar, ASHTYN [facility] [address] [place] [address] 03/06/2022 17:54:38 03/07/2022 23:28:20 [id number] Ashtyn Bolivar, ASHTYN [facility] [address] [place] [address] 05/11/2022 15:06:18 05/12/2022 06:02:02 Health Concerns Section Related Observation LastModified by Organization Detai ls LastModified Time None Recorded Concern Status LastModified by Organization Details LastModified Time None Recorded Advance Directives Directive None Recorded Payers Encounter Date Sequence Insurance Name Policy Number Policy Crawley Covered Member ID Crawley Member ID Guarantor Name 12/19/2010 1 [facility] [employer] [place] [employer] (MEDICAID HMO) Sangita Umana [id number] Sangita Umana OBGyn Episode No OBEpisode recorded.
--- OUTSIDE RECORDS SUMMARY | 2024-07-07 15:24 | XMS_ITS | Continuity of Care Document ---
Author Organization [facility] ter Address [address] [place] [address] Phone Care Team Providers Care Ticker Installer Name Role Phone Zainab Guzman MD Unavailable Unavailable Procedures Procedure Date Cancel Fee 1st Occurrence Advance Directives Directive Yes / No Effective Date File Name No Information Encounters Encounter Description Practice Location Reason(s) For Visit Diagnoses Date Provider Providers Copied on Encounter [facility], [address] [place] [id number], [place] tel:[phone] [facility] No Information 3 Thomas Lamb. [facility] [place], [place], [id number] , . tel:[phone] Referring Provider: Zainab Guzman, [facility] [place] [place], [address] . tel:[phone] Family History Family Member Type Diagnosis Age At Onset No Information Payers Payer name Insurance type Covered libertarian ID Authoriza tion(s) No Information Social History Type Description Quantity Date Captured Comments Sex Female Smoking Status No Information Chief Complaint And Reason For Visit No Information Reason For Referral Reason For Referral No Information History Of Present Illness Encounter Date Complaint History Of Prese nt Illness No Information Functional Status Date Functional Assessmen t No Information Instructions Date Instruction Additional Infor mation No Information Assessments Type Assessment Date No Information Patient Care Teams Name Effective Dates (start - stop) Status Members No Information
--- OUTSIDE RECORDS SUMMARY | 2024-07-07 15:24 | XMS_ITS | Encounter Summary ---
Author Organization [facility] Address [address] [place] [address] Care Team Providers Care Stretcher Drier Operator Name Role Phone Zainab Kaiser Primary Care Provider [phone] Reason for Referral * Physical Therapy (Routine) - Pending Review Specialty Diagnoses / Procedures Referred By Garima black Referred To Contact Diagnoses Chronic pain syndrome Zainab Kaiser PA [address] [place] [address] Phone: tel: fax: [facility] [address] [place], [place] Phone: tel: fax: Referral ID Status Reason Start Date Expiration Date Visits Requested Visits Authorized [id number] Pending Review Evaluate and Treat 06/09/2024 06/09/2025 1 1 Comments 69F with DDD and osteoarthritis of thoracic spine. Patient has chronic back pain due to these dx. Please eval and treat for back pain. * Behavioral Health (Routine) - New Request Specialty Diagnoses / Procedures Referred By Garima black Referred To Contact Mental Health Diagnoses Chronic pain syndrome Zainab Kaiser PA [address] [place] [address] Phone: tel: fax: [facility] [address] [place] [phone] Phone: tel: fax: Referral ID Status Reason Start Date Expiration Date Visits Requested Visits Authorized [id number] New Request Mental Health 06/09/2024 06/09/2025 1 1 Comments Reason for Referral: - patient experiences bouts of sadness from chronic pain. I believe that she may benefit mentally and pain tom from talking to someone about her daily emotions. PHQ9 Little interest or pleasure in doing things Not at all at 12/21/2023 2:00 PM Feeling down, depressed or hopeless [include irritable if under 18] Not at all at 12/21/2023 2:00 PM Trouble falling or staying asleep, or sleeping too much Not at all at 12/21/2023 2:00 PM Feeling tired or having little energy Not at all at 12/21/2023 2:00 PM Poor appetite or overeating Not at all at 12/21/2023 2:00 PM Feeling bad about yourself - or that you are a failure or have let yourself or your family down Not at all at 12/21/2023 2:00 PM Trouble concentrating on things like school work, reading or watching TV? Not at all at 12/21/2023 2:00 PM Moving or speaking so slowly that other people could have noticed? Or the opposite - being so fidgety or restless that you have been moving around a lot more than usual Not at all at 12/21/2023 2:00 PM Thoughts you would be better off or of hurting yourself in some way Not at all at 12/21/2023 2:00 PM If you checked off any problems, how difficult have these problems made it for you to do your work, take care of things at home, or get along with other people? Not difficult at all at 12/21/2023 2:00 PM PHQ-9 Total Score (Auto Calculated) 0 at 12/21/2023 2:00 PM Depression Severity: None-minimal at 12/21/2023 2:00 PM GAD7 No data to display Reason for Visit * Reason Comments Back Pain Pain Management Encounter Details Date Type Department Care Team (Late st Contact Info) Description 06/09/2024 3:40 PM EST Office Visit [address] [phone] Zainab Kaiser PA [address] [place] [address] [phone] Pain management (Primary Dx); Chronic pain syndrome; Immunization due Social History Tobacco Use Types Packs/Day Years Used Date Smoking Tobacco: Every Day Cigarettes Smokeless Tobacco: Never Tobacco Cessation:Ready to Q uit: Not Asked; Counseling Given: Not Answered Comments:Smokes rolled up tobacco ; about 7 a day. Alcohol Use Standard Drinks/Week Comments Not Currently 0 (1 standard drink = 0.6 oz pur e alcohol) Social Connections Answer Date Recorded Connectedness 0 01/11/2024 Financial Resource Strain Answer Date R ecorded Financial Resource Strain 0 2023 Stress Answer Date Recorded Stress 0 07/10/2023 Physical Activity Answer Date Recorded Physical Activity 0 07/10/2023 Food Insecurity Answer Date Recorded Food 0 01/24/2024 Transportation Needs Answer Date Record ed Transportation 0 07/10/2023 Housing Stability Answer Date Recorded Housing 0 07/10/2023 Safety and Environment Answer Date Farzad rded Safety 0 07/10/2023 Utilities Answer Date Recorded Utilities 0 07/10/2023 Employment Answer Date Recorded Stress 0 01/11/2024 Comments Unknown Sex and Gender Information Value Date Recorded Sex Assigned at Female 11/09/2023 10:14 AM PDT Legal Sex Female 12:58 PM PDT Gender Identity Female 11/09/2023 10:14 AM PDT Sexual Orientation Straight 11/11/2023 8: 31 PM PDT documented as of this encounter Last Filed Vital Signs Vital Sign Reading Time Taken Comments Blood Pressure 110/62 06/09/2024 3:21 PM EST Pulse 64 06/09/2024 3:21 PM EST Temperature 36.8 ??C (98.2 ??F) 06/09/2024 3:21 PM ES T Respiratory Rate 16 06/09/2024 3:21 PM EST Oxygen Saturation 93% 06/09/2024 3:21 PM EST Inhaled Oxygen Concentration - - Weight 57.6 kg (127 lb) 06/09/2024 3:21 PM EST Height 149.9 cm (4' 11 ) 06/09/2024 3:21 PM EST Body Mass Index 25.65 06/09/2024 3:21 PM EST documented in this encounter Progress Notes * ERIKA Yin - 06/09/2024 3:40 PM EST Subjective: CC: Back Pain and Pain Management Analysis Internship: None, provider speaks patient's familiar language HPI: Sangita Umana is a 69 year old female patient who presents to the office today for pain managementdue to history of osteoarthritis of multiple joints, DDD, and chronic pain syndrome. Previously denied Tramadol dosage increase and refill. Today she reports wanting tramadol due to pain. She states she cannot do much because of the pain. Unable to stand for prolonged periods. States she has not been able to complete physical therapy in the past because it is too painful for her. Will be seeing a surgeon in two days for evaluation. No Known Allergies Patient Active Problem List Diagnosis Lumbar spondylosis Osteoarthritis of thoracic spine Primary hypertension Chronic obstructive pulmonary disease ([facility]) Chronic bilateral back pain Major depressive disorder Stage 3 chronic kidney disease ([facility]) ISSAC (generalized anxiety disorder) Osteoarthritis of hip DDD (degenerative disc disease), cervical Cervical stenosis of spine Current Outpatient Medications on File Prior to Visit Medication Sig Dispense Refill gabapentin (NEURONTIN) 100 mg capsule Take 1 Capsule by mouth 3 (three) times daily NEEDED FOR SEVERE PAIN!! 90 Capsule 0 tiZANidine (ZANAFLEX) 2 mg tablet Take 1 Tablet by mouth once daily NEEDED FOR MUSCLE SPASMS!! 30 Tablet 0 acetaminophen (TYLENOL 8 HOUR) 650 mg CR tablet Take 1 Tablet by mouth every 8 (eight) hours as needed for pain 30 Tablet 0 albuterol HFA 90 mcg/actuation inhaler budesonide-formoteroL (SYMBICORT) 160-4.5 mcg/actuation inhaler INHALE 2 PUFFS TWICE DAILY. RINSE MOUTH AFTER USING. diclofenac sodium (VOLTAREN) 1 % gel APPLY 2 GRAMS TO affected joints FOUR TIMES DAILY NEEDED FOR PAIN DULoxetine (CYMBALTA) [address] capsule Take 60 mg by mouth once daily ipratropium-albuteroL (DUONEB) 0.5 mg-3 mg(2.5 mg base)/3 mL nebulizer solution INHALE 1 AMPULE USING A NEBULIZER EVERY 6 HOURS NEEDED FOR WHEEZING OR SHORTNESS OF BREATH lisinopriL 10 mg tablet Take 10 mg by mouth once daily metoprolol succinate XL (TOPROL-XL) 25 mg 24 hr tablet Take 25 mg by mouth once daily MISCELLANEOUS MEDICAL SUPPLY [facility] Foap AB with a seat and storage. Dx: Degenerative disc disease, cervical, and osteoarthritis of multiple joints including lumbar. Duration: lifetime 1 Each 0 montelukast (SINGULAIR) 10 mg tablet Take 10 mg by mouth once daily predniSONE (DELTASONE) 10 mg tablet No current facility-administered medications on file prior to visit. Review of Systems Remainder ROS: See HPI, systems reviewed and are otherwise negative or noncontributory. Objective: Vitals: 06/09/24 1521 BP: 110/62 Pulse: 64 Resp: 16 Temp: 98.2 ??F (36.8 ??C) TempSrc: Oral SpO2: 93% Weight: 127 lb (57.6 kg) Height: 4' 11 (1.499 m) Body mass index is 25.65 kg/m??. Physical Exam Vitals reviewed. Constitutional: General: She is not in acute distress. Appearance: Normal appearance. She is not ill-appearing, toxic-appearing or diaphoretic. HENT: Head: Normocephalic and atraumatic. Right Ear: External ear normal. Left Ear: External ear normal. Eyes: Extraocular Movements: Extraocular movements intact. Conjunctiva/sclera: Conjunctivae normal. Cardiovascular: Rate and Rhythm: Normal rate and regular rhythm. Pulses: Normal pulses. Heart sounds: Normal heart sounds. Pulmonary: Effort: Pulmonary effort is normal. Breath sounds: Normal breath sounds. Skin: General: Skin is warm. Neurological: Mental Status: She is alert and oriented to person, place, and time. Psychiatric: Mood and Affect: Mood normal. Behavior: Behavior normal. Thought Content: Thought content normal. Judgment: Judgment normal. Lifestyle measures:BMI follow up plan: The patient was counseled regarding nutrition and physical activity. Tobacco Intervention:provided smoking cessation counseling Depression screen: PHQ-9 Total Score (Auto Calculated) 0 at 12/21/2023 2:00 PM 12/21/2023 2:00 PM Did patient decline PHQ screening? No Little interest or pleasure in doing things Not at all Feeling down, depressed or hopeless [include irritable if under 18] Not at all PHQ2 Score 0 Little interest or pleasure in doing things Not at all Feeling down, depressed or hopeless [include irritable if under 18] Not at all Trouble falling or staying asleep, or sleeping too much Not at all Feeling tired or having little energy Not at all Poor appetite or overeating Not at all Feeling bad about yourself - or that you are a failure or have let yourself or your family down Notat all Trouble concentrating on things like school work, reading or watching TV? Not at all Moving or speaking so slowly that other people could have noticed? Or the opposite - being so fidgety or restless that you have been moving around a lot more than usual Not at all Thoughts you would be better off or of hurting yourself in some way Not at all If you checked off any problems, how difficult have these problems made it for you to do your work,take care of things at home, or get along with other people? Not difficult at all PHQ-9 Total Score (Auto Calculated) 0 Depression Severity: None-minimal The ASCVD Risk score (Judie GIRARD, et al., 2019) failed to calculate for the following reasons: Cannot find a previous HDL lab Cannot find a previous total cholesterol lab Assessment and Plan: Sangita Umana is a 69 year old female with history of chronic pain syndrome, osteoarthritis of thoracic spine, and pain in multiple joints was seen today for Pain Management. NAD. Was initially requesting for tramadol but patient is okay with combo referral and PT to help manage pain. R52 Pain management (primary encounter diagnosis) G89.4 Chronic pain syndrome Plan : REFERRAL TO BEHAVIORAL HEALTH COUNSELING REFERRAL TO PHYSICAL THERAPY Z23 Immunization due Plan : PCV20 VACCINE FOR INTRAMUSCULAR USE TDAP VACCINE 7 YRS/> IM Return in about 3 months (around 09/06/2024) for CPE. Assessment and plan discussed with patient. Patient agrees with plan. Questions answered. documented in this encounter Miscellaneous Notes * Patient Instructions - ERIKA Yin - 06/09/2024 3:57 PM EST If you are not able to keep your appointment please call 24-48 hours before your appointment to cancel or reschedule. documented in this encounter Plan of Treatment Scheduled Referrals Name Type Priority Associated Diagnoses Orde r Schedule REFERRAL TO BEHAVIORAL HEALTH COUNSELING Referral Routine Chronic pain syndrome Ordered: 06/09/2024 REFERRAL TO PHYSICAL THERAPY Referral Routine Chronic pain syndrome Ordered: 06/09/2024 documented as of this encounter Visit Diagnoses Diagnosis Pain management- Primary Other specified rehabilitation procedure Chronic pain syndrome Immunization due Need for prophylactic vaccination and inoculation against unspecified single disease documented in this encounter Additional Health Concerns Assessment Noted Time PHQ-9 Depression Total Score: 0 12/21/19 24 2:00 PM PDT documented as of this encounter Care Teams Stretcher Drier Operator Relationship Specialty Start Date End Date Zainab Kaiser PA [facility] [place] [address] PCP - General Primary Care 09/14/23 documented as of this encounter
--- OUTSIDE RECORDS SUMMARY | 2024-07-07 15:24 | XMS_ITS | Clinical Summary ---
Author Organization [facility] Address [address] [place] [address] Care Team Providers Care Probation Counselor Name Role Phone Zainab Kaiser Primary Care Provider [phone] Source Comments PLEASE NOTE, if this patient is a minor, it may be UNLAWFUL to discuss sensitive information that is contained in these records (such as FAMILY PLANNING, MENTAL HEALTH or SUBSTANCE ABUSE) with the minor patient's parent or other person without the patient's specific authorization.[facility] Allergies No known active allergies Medications diclofenac sodium (VOLTAREN) 1 % gel APPLY 2 GRAMS TO affected joints FOUR TIMES DAILY NEEDED FOR PAIN 09/17/19 24 Active budesonide-formot Monisha (SYMBICORT) 160-4.5 mcg/actuation inhaler INHALE 2 PUFFS TWICE DAILY. RINSE MOUTH AFTER USING. 10/01/19 24 Active predniSONE (DELTASONE) 10 mg tablet 12/14/19 23 Active metoprolol succinate XL (TOPROL-XL) 25 mg 24 hr tablet Take 25 mg by mouth once daily 08/21/19 24 Active montelukast (SINGULAIR) 10 mg tablet Take 10 mg by mouth once daily 08/21/19 24 Active albuterol HFA 90 mcg/actuation inhaler 10/24/19 24 Active DULoxetine (CYMBALTA) [address] capsule Take 60 mg by mouth once daily 08/21/19 24 Active lisinopriL 10 mg tablet Take 10 mg by mouth once daily 08/21/19 24 Active ipratropium-albut Monisha (DUONEB) 0.5 mg-3 mg(2.5 mg base)/3 mL nebulizer solution INHALE 1 AMPULE USING A NEBULIZER EVERY 6 HOURS NEEDED FOR WHEEZING OR SHORTNESS OF BREATH 10/03/19 24 Active MISCELLANEOUS MEDICAL SUPPLY MISCIndications:D extroscoliosis of thoracolumbar spine,Osteoarthri tis of thoracic spine, unspecified spinal osteoarthritis complication status,Lumbar spondylosis,Osteo arthritis of hip, unspecified laterality, unspecified osteoarthritis type,DDD (degenerative disc disease), cervical,Cervical stenosis of spine Rolator walker with a seat and storage. Dx: Degenerative disc disease, cervical, and osteoarthritis of multiple joints including lumbar. Duration: lifetime 1 Each 11/09/19 24 Active acetaminophen (TYLENOL 8 HOUR) 650 mg CR tabletIndications :DDD (degenerative disc disease), cervical Take 1 Tablet by mouth every 8 (eight) hours as needed for pain 30 Tablet 11/14/19 24 Active tiZANidine (ZANAFLEX) 2 mg tabletIndications :Pain management Take 1 Tablet by mouth once daily NEEDED FOR MUSCLE SPASMS!! 30 Tablet 06/03/19 25 Active gabapentin (NEURONTIN) 100 mg capsuleIndication s:Osteoarthritis of thoracic spine, unspecified spinal osteoarthritis complication status,DDD (degenerative disc disease), cervical,Osteoart hritis of hip, unspecified laterality, unspecified osteoarthritis type Take 1 Capsule by mouth 3 (three) times daily NEEDED FOR SEVERE PAIN!! 90 Capsule 2 07/03/19 25 Active traMADoL (ULTRAM) 50 mg tabletIndications :Osteoarthritis of thoracic spine, unspecified spinal osteoarthritis complication status,DDD (degenerative disc disease), cervical,Osteoart hritis of hip, unspecified laterality, unspecified osteoarthritis type Take 1 Tablet by mouth every 12 (twelve) hours as needed for pain 60 Tablet 01/11/20 24 025 Disconti nued(The rapy complete d/Not needed) gabapentin (NEURONTIN) 100 mg capsuleIndication s:Osteoarthritis of thoracic spine, unspecified spinal osteoarthritis complication status,DDD (degenerative disc disease), cervical,Osteoart hritis of hip, unspecified laterality, unspecified osteoarthritis type Take 1 Capsule by mouth 3 (three) times daily NEEDED FOR SEVERE PAIN!! 90 Capsule 06/03/19 25 025 Disconti nued(Reo rder (E-Cance l Not Sent)) Active Problems Problem Noted Date Diagnosed Date Lumbar spondylosis 11/09/2023 Osteoarthritis of thoracic spine 11/09/2023 Primary hypertension 11/09/2023 Chronic obstructive pulmonary disease (HCC-CMS) 11/09/2023 Chronic bilateral back pain 11/09/2023 Major depressive disorder 11/09/2023 Stage 3 chronic kidney disease (HCC-CMS) 024 ISSAC (generalized anxiety disorder) 11/09/2023 Osteoarthritis of hip 11/09/2023 DDD (degenerative disc disease), cervical 2023 Cervical stenosis of spine 11/09/2023 Encounters Date Type Department Care Team Description 06/09/2024 3:40 PM EST Office Visit [address] [phone] Zainab Kaiser PA Pain management (Primary Dx); Chronic pain syndrome; Immunization due from Last 3 Months Immunizations Name Administration Dates Next Due PNEUMOCOCCAL CONJUGATE PCV 20 (Prevnar) 06/09/19 25 TDAP 06/09/2024 Social History Tobacco Use Types Packs/Day Years [...] Orientation Straight 11/11/2023 8: 31 PM PDT Last Filed Vital Signs Vital Sign Reading [...] Mass Index 25.65 06/09/2024 3:21 PM EST Plan of Treatment Health Maintenance Due Date Last Done Comments Hepatitis C Screening 1957 Lipid Screening 1957 Tobacco Cessation Counseling (#1) 1957 Medicare Annual Wellness Visit 1975 Breast Cancer Screening (Mammogram) 1997 CT Colonography 2002 Colonoscopy 2002 Colorectal Cancer Screening 2002 FIT/gFOBT 2002 Fecal DNA 2002 Flexible Sigmoidoscopy 2002 Imm-Zoster, Recombinant (1 o f 2) 2007 Bone Density Screening 2022 Dum-VGCCQ-05 ( season) 2023 Imm-Influenza (#1) 2023 Depression Monitoring 03/22/2024 12/21/2023 , 11/22/2023, 11/09/2023 Falls Prevention 11/08/2024 11/09/2023 Diabetes Screening 11/21/2026 11/22/2023 Imm-DTaP/Tdap/Td (2 - Td or Tdap) 06/09/2034 06/09/2024 Alcohol and Drug Screen Addressed 06/09/19, 11/09/2023 Overridden with the intention of not completing the topic Imm-Pneumococcal 65+ Completed 06/09/2024 Procedures Procedure Name Priority Date/Time Associated Diagnosis Comments REFERRAL TO ORTHOPEDICS Routine 06/11/2024 3:00 AM EST Dextroscoliosis of thoracolumbar spine Osteoarthritis of thoracic spine, unspecified spinal osteoarthritis complication status Lumbar spondylosis Osteoarthritis of hip, unspecified laterality, unspecified osteoarthritis type DDD (degenerative disc disease), cervical Cervical stenosis of spine COMPREHENSIVE METABOLIC PANEL Routine 11/22/2023 4:09 PM EDT Encounter for medication monitoring Stage 3 chronic kidney disease, unspecified whether stage 3a or 3b CKD ([facility]) from Last 3 Months or Most Recently Relevant to Health Maintenance Results * REFERRAL TO ORTHOPEDICS (06/11/2024 3:00 AM EST) 06/11/2024 3:00 AM EST Zainab JAMES REFERRAL Final Result * (ABNORMAL) COMPREHENSIVE METABOLIC PANEL (11/22/2023 4:09 PM EDT) GLUCOSE 82 65 - 99 mg/dL [facility] Comment: ?Fasting reference interval UREA NITROGEN (BUN) 27(H) 7 - 25 mg/dL [facility] CREATININE (blood) 1.57(H) 0.50 - 1.05 mg/dL [facility] EGFR 36(L) > OR = 60 mL/min/1. 73m2 [facility] BUN/CREATININE RATIO 17 6 - 22 (calc) [facility] SODIUM 138 135 - 146 mmol/L [facility] POTASSIUM 4.2 3.5 - 5.3 mmol/L [facility]. [facility] CHLORIDE 102 98 - 110 mmol/L [facility]. [facility] CARBON DIOXIDE 28 20 - 32 mmol/L [facility]. [facility] CALCIUM 10.1 8.6 - 10.4 mg/dL [facility]. [facility] PROTEIN, TOTAL 7.4 6.1 - 8.1 g/dL [facility]. [facility] ALBUMIN 4.9 3.6 - 5.1 g/dL [facility]. [facility] GLOBULIN 2.5 1.9 - 3.7 g/dL (calc) [facility] ALBUMIN/GLOBULI N RATIO 2.0 1.0 - 2.5 (calc) [facility]. [facility] BILIRUBIN, TOTAL 0.7 0.2 - 1.2 mg/dL [facility]. [facility] ALKALINE PHOSPHATASE 57 37 - 153 U/L [facility]. [facility] AST 23 10 - 35 U/L Nu-Pulse ALT 18 6 - 29 U/L [facility] Blood Blood / Unknown 11/22/2023 4 :09 PM EDT 11/22/2023 4:09 PM EDT Narrative [facility] - 11/23/2023 10:52 AM EDT SPLIT 11/22/2023 FROM [id number] Zainab JAMES LAB - BLOOD DRAW Final Result [facility] [address] [address], [facility] [address] [place] [address] from Last 3 Months or Most Recently Relevant to Health Maintenance Insurance [facility] [place] [address] [place] MEDICA[place] Care Teams Probation Counselor Relationship Specialty Start Date End Date Zainab Kaiser PA [address] [place] [address] PCP - General Primary Care 09/14/23
[2024-07-08 12:28] LABS: HCV RNA PCR Qn <1.18 NOT DETECTED Log IU/mL (NOT DETECTED); HCV RNA PCR Qn <15 NOT DETECTED IU/mL (NOT DETECTED)
== END 2024-07-07 13:38 | disposition home or self-care (01) ==
LOC: HO.LAB 13:37
PROVIDERS: Nurse Practitioner; PCP Student in an Organized Health Care Education/Training Program; Visit Provider Internal Medicine Endocrinology, Diabetes & Metabolism
DX: R76.8 Other specified abnormal immunological findings in serum (principal)
CPT/HCPCS: 36415; 87522; 87902

== ENCOUNTER 2024-07-17 14:09 | Outpatient (REF) | payer OTHER, SELFPAY ==
[2024-07-17 15:27] LABS: Creatinine, mg/dL 50.92
[2024-07-17 16:51] LABS: Creatinine, 24Hr Urine 0.8 G/Day (1.0-2.0); Total Volume 24 Hour Urine 1550 mL
[2024-07-19 17:43] LABS: Calcium, 24 Hr Urine 124 mg/24 h; Calcium/Creatinine Ratio 157 mg/g creat (30-275); Creatinine 24Hr Urine 0.79 g/24 h (0.50-2.15)
== END 2024-07-17 14:10 | disposition home or self-care (01) ==
LOC: HO.LNP 14:09
PROVIDERS: Visit Provider Internal Medicine Endocrinology, Diabetes & Metabolism
DX: M81.0 Age-related osteoporosis without current pathological fracture (principal)
CPT/HCPCS: 82340; 82570

== ENCOUNTER 2024-07-22 13:17 | Outpatient (AMB) | payer OTHER, SELFPAY ==
--- NOTE | 2024-07-22 13:26 | A.OFFVIS_ITS ---
Vital Signs 07/22/24 13:32 Height 4 ft 10.62 in Weight 124 lb 12.506 oz BMI 25.5 BP 132/64 Blood Pressure Location Lt brachial Position Sitting Pulse 64 Pulse Source Pulse Oximeter Pulse Oximetry (%) 100 Oxygen Delivery Method Room Air Intake Visit Reasons: osteopororsis Intake Note: Patient present today for Osteoporosis follow up. Icing Maker Required: No Accompanied by: Self / Same As Patient Allergies NSAIDS (Non-Steroidal Anti-Inflamma Adverse Reaction (Mild, Verified 07/22/24 13 :33) contraindicated w/ CKD Medication List - Last Reconciled 07/22/24 by Nick Nolasco MD acetaminophen ER (Tylenol Arthritis Pain) 650 mg PO Q12H albuterol sulfate 90 mcg/actuation 2 puffs inhalation Q4H PRN amlodipine 5 mg PO DAILY budesonide-formoterol 160-4.5 mcg/actuation (Symbicort) 2 inhalations inhalation BID diclofenac sodium 1% 2 grams topical QID PRN duloxetine 60 mg PO DAILY gabapentin 100 mg PO TID ipratropium-albuterol 0.5 mg-3 mg(2.5 mg base)/3 mL 3 mL inhalation Q6H PRN metoprolol succinate ER 25 mg PO DAILY montelukast 10 mg PO DAILY sucralfate (Carafate) 2 grams (2 x 1 gram) PO QNOON tizanidine 2 mg PO Q8H PRN tramadol 50 mg PO BID PRN HPI Comments Details: 69 YO Female with is seen in consultation at the request of PCP for Osteoporo sis. First diagnosed in just diagnosed . Not Received treatment in the past No history of pathologic fracture or ONJ. Has several servings of dietary calcium per day in the form of cheese . Takes Calcium supplement ? mg daily in divided doses. Takes ? IU of Vitamin D daily. Denies ever using PPI, anticoagulant, antiepileptic but does take glucocorticoid medication. 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 Not UTD on dental cleanings and sees dentist every 6 months. Has planned upcoming dental work or extractions in near future . DXA dated 12/11/23:FINDINGS: RIGHT FEMUR, NECK: BMD 0.605 g/cm2, Z-score -1.3, T-score -3.1, osteoporosis. RIGHT FEMUR, TOTAL: BMD 0.523 g/cm2, Z-score -2.3, T-score -3.8, osteoporosis. AP SPINE L1-L3 (excluding L4): The data of L1-L4 has been changed to exclude the L4 vertebral body, because degenerative sclerosis at this level may cause overestimation of lumbar spine density. BMD 1.128 g/cm2, Z-score 1.7, T-score -0.4, normal. IDENTIFIED RISK FACTORS: Menopause, height loss, osteoporosis, renal, tobacco use (current smoker), secondary osteoporosis (chronic liver disease). HISTORY OF FRACTURE: None listed. MEDICATIONS: Calcium, vitamin D. MM/XR DEXA axial skeleton IMPRESSION: 1. DIAGNOSIS: Osteoporosis based on the lowest T-score value of -3.8 in the total femur applying World Health Organization criteria. Labs: Secondary workup was negative The patient is a 69-year-old female presenting for follow-up regarding osteoporosis management. Recent T-score of -3.8 underscores high fracture risk. Patient has chronic kidney disease Stage 3B, limiting treatment options for osteoporosis. Supplementation includes calcium, vitamin D, and magnesium. The patient denies any recent fractures. Osteoarthritis history necessitated bilateral hip replacements due to significant degeneration. Analgesic options are limited by chronic kidney disease. [facility] Medical History Encounter for general adult medical examination without abnormal findings Liver disease Polyarthralgia Lumbar degenerative disc disease ISSAC (generalized anxiety disorder) HTN (hypertension) Chronic back pain Renal stones Surgical History History of left knee replacement History of left hip replacement Hx of section S/P cholecystectomy H/O laminectomy Family History Mother Colitis Maternal Uncle Cancer Family/Other Cancer Social History Household Members: Other Household Members Other:: Roommate x1 Housing: Other Housing Other:: Roommate 75 years or older and lives alone: No Alcohol intake: former 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 Patient Tobacco Use Status: Current everyday Tobacco user Tobacco use type: Cigarette Cigarettes Per Day: 6 Years Smoked: 40 e-Cigarette/Vaping Use: Currently Using Substance Use Type: Marijuana service: No Current occupational status: disabled Current occupational exposures/hazards: No Sexual orientation: Straight/Heterosexual Gender identity: Female Cognitive needs: No Hearing needs: No Vision needs: Yes Physical Exam Vital Signs: BMI result Body Mass Index 25.5 Assessment & Plan Assessment & Plan (1) Osteoporosis: Code(s): M81.0 - Age-related osteoporosis without current pathological fracture Category: Medical Plan: This is a 68-year-old white female with a history of osteoporosis moderate to severe in the setting of CKD stage 3 B. Secondary workup is negative Plan is to discuss an anabolic agent like Evenity Tymlos or Forteo. Would not use an anti resorptive agent initially because alkaline phosphatase and PTH are low normal which could suggest the possibility of adynamic bone. 1. Osteoporosis: Osteoporosis management is crucial due to the T-score of -3.8. Plan includes utilizing Evenity, pending insurance approval. Alternatives are potential self-injections like Tymlos or Forteo subsequent treatment with which are less preferred by the patient. 2. Chronic Kidney Disease Stage 3B: Monitor kidney function as limits osteoporosis treatment options. I discussed with the patient the critical condition of her osteoporosis and the necessity of further strengthening bones to prevent fractures. Options include Evenity, an injection approved for chronic kidney disease, followed by Prolia or daily Tymlos or Forteo injections as secondary choices. I emphasized the high osteoporosis risk given low bone density, necessitating an appeal to her insurer based on her CKD and bone evaluation. Alternatives were explored, considering patient aversion to daily self-injection due to needle discomfort. I addressed dietary improvements, advocating for lactate supplements, ensuring dietary calcium. We will follow up for prescription approval and therapy plane re-evaluation based on insurer response. - Take calcium and vitamin D supplements as prescribed. - Ensure intake of calcium-rich foods within dietary restrictions. - Engage with insurance regarding coverage for recommended therapies. - Follow up in four months for assessment and therapy outcomes. - Maintain communication about any new symptoms or treatment effects. - Consult your primary care provider or pain management nurse for options related to osteoarthritis or chronic pain relief. T . The patient had an opportunity to ask questions regarding treatment plan. The patient expressed understanding and agreement with the above treatment plan. Patient was informed and verbally consented to the use of an ambient scribe for clinic note documentation during this visit. Medications: New romosozumab-aqqg (Evenity) 210 mg (2.34 mL) subcut .qmo 2.34 mL 11RF Coding Level of Care Code Est Pt Level 3 (76863) Diagnoses Osteoporosis M81.0
[2024-07-22 13:32] VITALS: BP 132/64; PULSE 64; O2SAT 100; BMI 25.5
--- OUTSIDE RECORDS SUMMARY | 2024-07-22 16:09 | XMS_ITS | Clinical Summary ---
Author Organization [facility] Address [address] [place] [address] Care Team Providers Care Reimbursement Liaison Name Role Phone Zainab Kaiser Primary Care Provider [phone] Source Comments PLEASE NOTE, if this patient [...] PAIN!! 90 Capsule 2 07/03/19 25 Active gabapentin (NEURONTIN) 100 mg capsuleIndication [...] Primary hypertension 11/09/2023 Chronic obstructive pulmonary disease ([facility]) 11/09/2023 Chronic bilateral back pain 11/09/2023 Major depressive disorder 11/09/2023 Stage 3 chronic kidney disease ([facility]) 024 ISSAC (generalized anxiety disorder) 11/09/2023 Osteoarthritis of hip 11/09/2023 DDD (degenerative disc disease), cervical 2023 Cervical stenosis of spine 11/09/2023 Encounters Date Type Department Care Team Description 06/09/2024 3:40 PM EST Office Visit [address] [phone] Zainab Kaiser PA Pain management (Primary Dx); Chronic pain syndrome; Immunization due from Last 3 Months Immunizations Immunization Administration Dates Next Due PNEUMOCOCCAL CONJUGATE PCV [...] f 2) 2007 Bone Density Screening 2022 Oki-QRIVF-00 () 12/30/2023 Imm-Influenza (#1) 2023 Depression Monitoring 03/22/2024 12/21/2023 [...] unspecified whether stage 3a or 3b CKD ([facility]) from Last 3 Months or Most Recently Relevant to Health Maintenance Results * REFERRAL TO ORTHOPEDICS (06/11/2024 3:00 AM EST) 06/11/2024 3:00 AM EST us Zainab JAMES REFERRAL Final Result * (ABNORMAL) COMPREHENSIVE METABOLIC PANEL (11/22/2023 4:09 PM EDT) GLUCOSE 82 65 - 99 mg/dL [facility] Comment: ?Fasting reference interval UREA NITROGEN (BUN) 27(H) 7 - 25 mg/dL [facility] CREATININE (blood) 1.57(H) 0.50 - 1.05 mg/dL [facility] EGFR 36(L) > OR = 60 mL/min/1. 73m2 [facility] BUN/CREATININE RATIO 17 6 - 22 (calc) [facility] SODIUM 138 135 - 146 mmol/L [facility] POTASSIUM 4.2 3.5 - 5.3 mmol/L [facility] CHLORIDE 102 98 - 110 mmol/L [facility] CARBON DIOXIDE 28 20 - 32 mmol/L [facility] CALCIUM 10.1 8.6 - 10.4 mg/dL [facility] PROTEIN, TOTAL 7.4 6.1 - 8.1 g/dL [facility] ALBUMIN 4.9 3.6 - 5.1 g/dL [facility] GLOBULIN 2.5 1.9 - 3.7 g/dL (calc) [facility] ALBUMIN/GLOBULI N RATIO 2.0 1.0 - 2.5 (calc) [facility] BILIRUBIN, TOTAL 0.7 0.2 - 1.2 mg/dL [facility] ALKALINE PHOSPHATASE 57 37 - 153 U/L [facility] AST 23 10 - 35 U/L [facility] ALT 18 6 - 29 U/L [facility] Blood Blood / Unknown 11/22/2023 4 :09 PM EDT 11/22/2023 4:09 PM EDT Narrative [facility] - 11/23/2023 10:52 AM EDT SPLIT 11/22/2023 FROM [id number] us Zainab JAMES LAB - BLOOD DRAW Final Result [facility] [address] [address], [employer] [address] [address] from Last 3 Months or Most Recently Relevant to Health Maintenance Insurance [facility] MEDICARE [place] Care Teams Reimbursement Liaison Relationship Specialty Start Date End Date Zainab Kaiser PA [address] [place] [address] PCP - General Primary Care 09/14/23
--- OUTSIDE RECORDS SUMMARY | 2024-07-22 16:09 | XMS_ITS | Data Portability ---
Author Organization [place] - [facility], [facility] Address [address] [facility] [address] [place] [address] Assessment No assessment recorded. Plan of Treatment Reminders Order Date Submit Date Provider Last Modified By Organization Details Last Modified Time Details Appointments None recorded. Lab culture, urine 011 [facility], [address], [address], 3 04:00:47 Referral None recorded. Procedures None recorded. Surgeries None recorded. Imaging None recorded. Medication Orders Bactrim DS 800 mg-160 mg tablet 011 [facility] [id number], [address] , [place], [address], 3 04:00:47 Patient TargetsNo targets recorded. Patient InstructionsNo instructions recorded. Reason for Referral None Reported. Results Created Date Observation Date Name Description Value Unit Range Abnormal Flag Note LastModifiedBy Organization Detail LastModifiedTime 12/20/19 11 12/21/2010 cultu re, urine source urine-voided URINE- VOIDED Not Available [facility] [address], [address], 12/22/2010 03:34:08 12/20/19 11 12/21/2010 cultu re, urine culture, urine order ed test: cultu re,ur ine micro numbe r: [id number] test statu s: final speci men [...] A 1:100 0 dilut ion Not Available [employer] [address], [address], 12/22/2010 03:34:08 Result Notes None recorded. Problems Name Problem SNOMED Code Status Onset Date Resolution Date Notes Provider Name and Address Organization Details Recorded Time Dysuria [id number] Active Not Available [facility] 01/21/2013 03:02:05 Problem Notes None recorded. Procedures Surgical History Date Name Laterality Status Provider Name and Address Organization Details Recorded Time 8 Hip Surgery completed Not Available [facility] 03/23/20 11 02:44:39 Imaging Results None recorded. [...] Details Last Updated DateTime 1 154.94 cm 95059.2 5712 g 33.3 kg/m2 98.1 [degF] 66 /min 98 % 98 % 128 mm[Hg] 81 mm[Hg] Amaya Fine (Elenita) [facility] 1 19:46:12 Social History Question Answer Notes LastModified by Organizat ion Details LastModified Time Tobacco Smoking Status Current Every Day Smoker Not Available [facility] 03/16/2011 05:14:21 What Is Your Level Of [...] Osteopenia/Osteoporosis Y Fibromyalgia Y Back/Neck Pain Y Depression Y Spine Disease (Herniated Disc, Scoliosis , Stenosis) Y Gynecological HistoryNo gynecological history recorded. Obstetrics History GPAL:G 0 P 0 0 0 0 Past Encounters Encounter ID Performer Location Encounter Start Date Encounter Closed Date Diagnosis/Indication Diagnosis SNOMED-CT Code Diagnosis ICD10 Code Diagnosis Note [id number] [facility] [address] [facility] [place] [address] 05/05/2010 18:12:34 05/05/2010 19:18:30 [id number] Amaya Guo) [facility] [address] [facility] [place] [address] 05/10/2010 17:06:55 05/10/2010 18:50:11 [id number] [facility] [address] [facility] [place] [address] 05/31/2010 18:17:55 05/31/2010 19:23:28 [id number] [facility] [address] [facility] [place] [address] 10/04/2010 17:25:28 10/04/2010 18:04:57 [id number] Amaya Babatunde (Elenita) [facility] [address] [place] [address] 10/26/2010 15:30:56 10/26/2010 16:47:04 [id number] [facility] [address] [facility] [place] [address] 12/19/2010 19:34:25 12/19/2010 20:13:27 [id number] [facility] [address] [facility] [place] [address] 03/17/2011 14:44:01 03/17/2011 15:31:54 [id number] [facility] [address] [facility] [place] [address] 06/01/2011 12:28:37 06/01/2011 13:54:09 [id number] Amaya Fronek (Elenita) [facility] [address] [place] [address], [place] [address] 07/18/2012 19:08:12 07/19/2012 13:17:25 [id number] Amaya Fronek (Elenita) [facility] [address] [place] [address], [place] [address] 05/22/2013 16:22:52 05/23/2013 10:09:02 [id number] [facility] [address] [place] [address] 12/15/2013 18:32:26 12/15/2013 19:40:41 [id number] Essence Knowles, [facility] [address] [place] [address], [place] [address] 01/02/2014 10:53:17 01/02/2014 15:51:25 [id number] Bess Oh [facility] [address] [place] [address], [place] [address] 03/19/2014 15:04:03 03/19/2014 15:32:34 [id number] Carolin Gonzalez,CCM A [facility] [address] [place] [address], [place] [address] 05/10/2015 15:37:23 05/11/2015 11:24:05 [id number] Kateryna Isabeljanice [facility] [address] [place] [address] 07/13/2015 15:34:17 07/14/2015 12:42:51 [id number] Barby Rogel MD [facility] [address] [place] [address] 05/15/2016 17:34:06 05/15/2016 19:08:03 [id number] Radha Mcmahon, [facility] [address] [place] [address] 08/18/2016 19:13:26 08/21/2016 03:16:32 [id number] [facility] [address] [place] [address] 08/06/2017 16:20:46 08/06/2017 21:19:04 [id number] [facility] [address] [place] [address] 02/11/2018 16:01:06 02/11/2018 21:36:59 [id number] MD kirstin [facility] [place] [facility] [address] [place] [address] 06/06/2018 16:55:47 06/10/2018 16:39:57 [id number] Poonam Quinn MD [facility] [place] [facility] [address] [place] [address] 06/19/2018 09:21:20 06/19/2018 10:16:22 [id number] [facility] [address] [place] [address] 09/02/2018 16:58:51 09/03/2018 09:16:52 [id number] [facility] [address] [place] [address] 11/12/2018 15:01:58 11/12/2018 18:51:23 [id number] Ashtyn Bolivar, PHARMACEUTICAL DEVELOPMENT TECHNICIAN [facility] [address] [place] [address] 11/29/2021 17:04:20 11/30/2021 06:58:32 [id number] Ashtyn Bolivar, ASHTYN [facility] [address] [place] [address] 12/15/2021 12:22:05 12/16/2021 08:34:45 [id number] MD KIRSTIN [facility]an[facility] [place] [address] [place] [address] 01/11/2022 16:24:26 01/11/2022 17:30:02 [id number] Kai Davis MD [facility] [address] [place] [address] 02/21/2022 10:08:23 02/21/2022 14:16:00 [id number] Ashtyn Bolivar, ASHTYN [facility] [address] [place] [address] 03/06/2022 17:54:38 03/07/2022 23:28:20 [id number] Ashtyn Bolivar, ASHTYN [facility] [address] [place] [address] 05/11/2022 15:06:18 05/12/2022 06:02:02 Health Concerns Section Related Observation LastModified by Organization Detai ls LastModified Time None Recorded Concern Status LastModified by Organization Details LastModified Time None Recorded Advance Directives Directive None Recorded Payers Encounter Date Sequence Insurance Name Policy Number Policy Crawley Covered Member ID Crawley Member ID Guarantor Name 12/19/2010 1 [facility] [place] [facility] [place] Sangita Umana [id number] Sangita Umana OBGyn Episode No OBEpisode recorded.
--- OUTSIDE RECORDS SUMMARY | 2024-07-22 16:09 | XMS_ITS | Data Portability ---
Author Organization [place] [facility], autoContract - [facility] Address [address] [place] [address] Care Team Providers Care Fermentation Operator Name Role Phone REBECCA ESCALONA OTHER [phone] MARIA GARCIA OTHER Assessment No assessment recorded. [...] By Organization Details Last Modified Time 06/06/2018 [id number] deciding about using medicines to quit smoking [...] telem etry No observ ation record ed. [employer] [address], [place], [address], 06/28/2018 17:37:34 06/24/19 19 [place], echoc ardio gram No observ ation record ed. BARCODE Not Available 2018 18:52:06 Result Notes None recorded. Problems Name Problem SNOMED Code Status Onset Date Resolution Date Notes Provider Name and Address Organization Details Recorded Time Palpitati ons 60505043 Active 2017 Sena Kurt, RMA null, [facility] 8 12:57:03 Obesity 486574821 Active Sena Kurt, RMA null, [facility] 8 12:57:03 Degenerat ion of lumbar intervert ebral disc 17402173 Completed 03/14/2018 Sena Kurt, RMA null, [facility] 8 12:58:14 Visual disturban ce 14314210 Completed 201703/14/2018 Sena Kurt, RMA null, [facility] 8 12:57:44 Degenerat anita joint disease involving multiple joints 230886943 Completed 03/14/2018 Sena Kurt, RMA null, [facility] 8 12:58:34 Intermitt ent palpitati ons 282024475 Active 2017 Sena Kurt, RMA null, [facility] 8 12:57:03 Depressiv e disorder 04167331 Active Sena Kurt, RMA null, [facility] 8 12:57:03 Chronic pain syndrome 913316935 Completed 03/14/2018 Sena Kurt, RMA null, [facility] 8 12:58:43 Mild memory disturban ce 513771876 Completed 201703/14/2018 Sena Kurt, RMA null, [facility] 8 12:58:23 Increased frequency of urination 987819589 Completed 201703/14/2018 Sena Kurt, RMA null, [facility] 8 12:58:27 Carpal tunnel syndrome 13426362 Active Sena Kurt RMA null, [facility] 8 12:57:03 Long-term current use of opiate analgesic drug 284092416996 108 Active 2017 Sena Kurt, RMA null, [facility] 8 12:57:03 Asthma 950510239 Completed 03/14/2018 Sena Kurt, RMA null, [facility] 8 12:58:31 Mixed anxiety and depressiv e disorder 451147332 Completed 03/14/2018 Sena Kurt, RMA null, [facility] 8 12:58:37 Benign essential hypertens ion 1056480 Active Sena Kurt, RMA null, [facility] 8 12:57:03 Shoulder joint pain 330515278 Completed 03/14/2018 Sena Kurt, RMA null, [facility] 8 12:58:47 Cigarette smoker 32441094 Active Sena Kurt, RMA null, [facility] 8 12:57:03 Closed fracture of phalanx of foot 23510808 Completed 03/14/2018 Sena Kurt, RMA null, [facility] 8 12:57:39 Feeling nervous 400233989 Completed 03/14/2018 Sena Kurt, RMA null, [facility] 8 12:57:57 Osteopeni a 820975400 Completed 03/14/2018 Sena Kurt, RMA null, [facility] 8 12:58:01 Overweigh t 384233289 Completed 201703/14/2018 Sena Kurt, RMA null, [facility] 8 12:58:11 Degenerat ion of lumbosacr al intervert ebral disc 85603369 Completed 03/14/2018 Sena Hicks RMA null, [facility] 8 12:57:48 Gastroeso phageal reflux disease 189460530 Active Sena Hicks RMA null, [facility] 8 12:57:03 Menopausa l symptom 02976489 Completed 03/14/2018 Sena Hicks RMA null, [facility] 8 12:58:18 History of hepatitis C 458257421343 Completed 201703/14/2018 Sena Kurt RMA null, [facility] 8 12:57:36 Malaise and fatigue 715916927 Completed 201703/14/2018 Sena Kurt RMA null, [facility] 8 12:58:05 Problem Notes None recorded. Procedures Surgical History Date Name Laterality Status Provider Name and Address Organization Details Recorded Time 06/19/19 19 Echocardiogram completed Nida Reyes [facility] 06/24/2018 17:47:42 Other completed Sena Hicks, ARVINDA [facility] 02/18/2018 10:05:38 Other completed Sena Kurt, ARVINDA [facility] 02/18/2018 10:05:58 Other completed Sena Hicks, RMA [facility] 02/18/2018 10:06:10 Cholecystectomy w/cholang completed Sena Hicks, ARVINDA [facility] 02/18/2018 10:06:30 Tubal Ligation completed ARVIND TapiaA [facility] 02/18/2018 14:35:35 Imaging Results Imaging Date Name Status LastModified by Organization Details LastModified Time 06/06/2018 electrocardiogram completed Informa tion not available 06/06/2018 18:44:44 06/19/2018 US, echocardiogram completed [facility] Inform ation not available 06/19/2018 10:19:56 06/19/2018 cardiac telemetry completed [employer] [address], [place], [address], 06/28/2018 17:37:34 06/24/2018 US, echocardiogram completed BARCODE [...] Updated DateTime 9 152.4 cm 27.7 kg/m2 61378.1 2 g 70 /min 98 % 98 % 122 mm[Hg] 80 mm[Hg] Yohana Song [facility] 9 17:16:31 Social History Question Answer Notes LastModified by Organizat Kwic[employer] Details LastModified Time Tobacco Smoking Status Current Every Day Smoker Sena Hicks, SUNG juwan, [facility] 02/18/2018 10:04:50 Do You Have An Advance [...] Status Question Answer Note LastModified by Organizat [employer] Details LastModified Time What is your exercise [...] SNOMED-CT Code Diagnosis ICD10 Code Diagnosis Note [id number] [facility] [address] [place] [address] 05/05/2010 18:12:34 05/05/2010 19:18:30 [id number] Amaya Bullek (Elenita) [facility] [address] [place] [address] 05/10/2010 17:06:55 05/10/2010 18:50:11 [id number] [facility] [address] [place] [address] 05/31/2010 18:17:55 05/31/2010 19:23:28 [id number] [facility] [address] [place] [address] 10/04/2010 17:25:28 10/04/2010 18:04:57 [id number] Amaya Babatunde (Elenita) [facility] [address] [place] [address] 10/26/2010 15:30:56 10/26/2010 16:47:04 [id number] [facility] [address] [place] [address] 12/19/2010 19:34:25 12/19/2010 20:13:27 [id number] [facility] [address] [facility] [place] [address] 03/17/2011 14:44:01 03/17/2011 15:31:54 [id number] [facility] [address] [facility] [place] [address] 06/01/2011 12:28:37 06/01/2011 13:54:09 [id number] Amaya Fronek (Elenita) [facility] [address] [place] [address] 07/18/2012 19:08:12 07/19/2012 13:17:25 [id number] Amaya Fronek (Elenita) [facility] [address] [place] [address] 05/22/2013 16:22:52 05/23/2013 10:09:02 [id number] [facility] [address] [place] [address] 12/15/2013 18:32:26 12/15/2013 19:40:41 [id number] Essence Knowles, DO [facility] [address] [place] [address] 01/02/2014 10:53:17 01/02/2014 15:51:25 [id number] Bess Oh [facility] [address] [place] [address] 03/19/2014 15:04:03 03/19/2014 15:32:34 [id number] Carolin Gonzalez CCM A [facility] [address] [place] [address] 05/10/2015 15:37:23 05/11/2015 11:24:05 [id number] Kateryna Loredo [facility] [address] [place] [address] 07/13/2015 15:34:17 07/14/2015 12:42:51 [id number] Barby Rogel MD [facility] [address] [facility] [place] [address] 05/15/2016 17:34:06 05/15/2016 19:08:03 [id number] Radha Mcmahon, DO [facility] [address] [facility] [place] [address] 08/18/2016 19:13:26 08/21/2016 03:16:32 [id number] Ashtyn UplandAPRILP [facility] [address] [place] [address] 08/06/2017 16:20:46 08/06/2017 21:19:04 [id number] [facility] ACCOUNTS ADMINISTRATOR [facility] [address] [place] [address] 02/11/2018 16:01:06 02/11/2018 21:36:59 [id number] Poonam Quinn MD [facility] [address] [place] [address] 06/06/2018 16:55:47 06/10/2018 16:39:57 Overweight 477817071 E66.3 Diet: 1800 Calories Low Glycemic Diet Exercise: Work up to 30 min 5x/week as tolerated Electrocar diogram abnormal 500120014 R94.31 LVH Intermitte nt palpitations 288928784 R00.2 once per week last few seconds fast and regular for 4 to 5 beats for last 4- 5 yearsTSH normal Essential hypertension 33713453 I10 controlled with treatment Tobacco de pendence syndrome 63231089 F17.313 [id number] Poonam Quinn MD [facility] [place] [facility] [address] [place] [address] 06/19/2018 09:21:20 06/19/2018 10:16:22 Electrocardiogram abnormal 868691208 R94.31 LVH [id number] [facility], ACCOUNTS ADMINISTRATOR [facility] [address] [place] [address] 09/02/2018 16:58:51 09/03/2018 09:16:52 [id number] Ashtyn UplandASHTYN [facility] [address] [place] [address] 11/12/2018 15:01:58 11/12/2018 18:51:23 [id number] Ashtynalistair Bolivar, ACCOUNTS ADMINISTRATOR [facility] [address] [place] [address] 11/29/2021 17:04:20 11/30/2021 06:58:32 [id number] Ashtyn Bolivar, ACCOUNTS ADMINISTRATOR [facility] [address] [place] [address] 12/15/2021 12:22:05 12/16/2021 08:34:45 [id number] Kai Davis MD [facility] [place] [address] [place] [address] 01/11/2022 16:24:26 01/11/2022 17:30:02 [id number] Kai Davis MD [facility] [address] [place] [address] 02/21/2022 10:08:23 02/21/2022 14:16:00 [id number] Ashtynalistair Bolivar, ACCOUNTS ADMINISTRATOR [facility] [address] [place] [address] 03/06/2022 17:54:38 03/07/2022 23:28:20 [id number] Ashtyn Bolivar, ACCOUNTS ADMINISTRATOR [facility] [address] [place] [address] 05/11/2022 15:06:18 05/12/2022 06:02:02 Health Concerns Section Related Observation LastModified by Organization Detai ls LastModified Time None Recorded Concern Status LastModified by Organization Details LastModified Time None Recorded Advance Directives Directive N: Payers Encounter Date Sequence Insurance Name Policy Number Policy Crawley Covered Member ID Crawley Member ID Guarantor Name 06/06/2018 1 [facility] DUAL ELIGIBLE (MEDICARE REPLACEMENT/ ADVANTAGE - HMO) [facility] Sangita Umana [id number] Sangita Umana 06/06/2018 2 [facility] (MEDICAID HMO) Sangita Umana [id number] Sangita Umana 06/19/2018 1 [facility]IG[facility] (MEDICARE REPLACEMENT/ ADVANTAGE - HMO) [facility] Sangita Grace Dong [id number] Sangita C Dong 06/19/2018 2 [facility] (MEDICAID HMO) Sangita Grace Dong [id number] Sangita Umana Notes Date Note Type Note Provider Name and Address Organization Details Recorded Time 06/06/2018 text/html [facility] H PI 1Reported bypatient.Notes:Saqib nieto seen for [...] or near [place] [address], [place], [address], [facility] 06/06/2018 18:09:31 OBGyn Episode No OBEpisode recorded.
--- OUTSIDE RECORDS SUMMARY | 2024-07-22 16:09 | XMS_ITS | Continuity of Care Document ---
Author Organization [facility] ter Address [address] [place] [address] Phone Care Team Providers Care Forest [employer] Professor Name Role Phone Zainab Guzman MD Unavailable Unavailable Procedures Procedure Date Cancel Fee 1st Occurrence Advance Directives Directive Yes / No Effective Date File Name No Information Encounters Encounter Description Practice Location Reason(s) For Visit Diagnoses Date Provider Providers Copied on Encounter [facility], [address] [place] [id number], [place] tel:[phone] [facility] No Information 3 Thomas Lamb. [facility] [email or web address] [place], [place], [id number] , . tel:[phone] Referring Provider: Zainab Guzman, [facility] [email or web address], [address] . tel:[phone] Family History Family Member Type Diagnosis Age At Onset No Information Payers Payer name Insurance type Covered alliance party ID Authoriza tion(s) No Information Social History [...]
== END 2024-07-22 14:04 | disposition home or self-care (01) ==
LOC: HO.ENCR 13:18
PROVIDERS: PCP Student in an Organized Health Care Education/Training Program; Visit Provider Internal Medicine Endocrinology, Diabetes & Metabolism
DX: M81.0 Age-related osteoporosis without current pathological fracture (principal)
CPT/HCPCS: 99213

== ENCOUNTER → 2024-07-22 13:17 | Outpatient (BNVA) | payer OTHER, SELFPAY | PROVIDERS: PCP Student in an Organized Health Care Education/Training Program; Visit Provider Internal Medicine Endocrinology, Diabetes & Metabolism | DX: M81.0 Age-related osteoporosis without current pathological fracture (principal) | CPT/HCPCS: 99212 ==

== ENCOUNTER 2024-07-24 14:36 | Outpatient (AMB) | payer OTHER, SELFPAY ==
--- NOTE | 2024-07-24 14:40 | MHC.OFFVIS ---
Vital Signs 07/24/24 14:41 Height 4 ft 10 in Weight 125 lb BMI 26.1 Blood Pressure Location Lt brachial Position Sitting Intake Visit Reasons: Follow up Post-cholecystectomy syndrome Intake Note: Sangita presents to in office follow up of post cholecystectomy syndrome. CC: Patient states that she is concerned about her liver and what diet she should be following to help with her liver. Carpet Weaver Required: No Accompanied by: Self / Same As Patient Allergies NSAIDS (Non-Steroidal Anti-Inflamma Adverse Reaction (Mild, Verified 07/24/24 14:57) contraindicated w/ CKD HPI HPI Follow up Post-cholecystectomy syndrome: Details: Assessment & Plan (1) Hepatitis C antibody positive in blood: Code(s): R76.8 - Other specified abnormal immunological findings in serum Category: Medical (2) Post-cholecystectomy syndrome: Code(s): K91.5 - Postcholecystectomy syndrome Category: Medical (3) Chronic pain syndrome: Code(s): G89.4 - Chronic pain syndrome Category: Medical (4) CKD (chronic kidney disease) stage 3, GFR 30-59 ml/min: Code(s): N18.30 - Chronic kidney disease, stage 3 unspecified Category: Medical Qualifiers: Chronic kidney disease stage 3 subtype: stage 3b (GFR 30-44) Qualified Code(s): N18.32 - Chronic kidney disease, stage 3b Plan She is not in a frame of mind to do more blood work today I don't want to be poked and prodded, they keep telling me I have new diseases since I came to [place]. Her anxiety is really overwhelming her as is the information. She also is being weaned from chronic opioids and says I'm in pain and no one in this state will prescribe, even my tramadol. At any event not all of her blood work has been return since she just did it this morning. The back pain is her major focus. She perseverates and cries in the office. She asks me what is the most important for me to focus on, and I tell her it would be the renal problems first, in my opinion. The Hep C is likely a past infection and not currently active, but I would like to do additional labs, eventually, to be sure. She could not tolerate the cholestyramine r/t bloating. Will try carafate, but information today indicates there may be an element of post raimundo syndrome with an overlay of opiate withdrawal. ROV 6 weeks. Medications: New sucralfate (Carafate) 2 grams (2 x 1 gram) PO QNOON 60 tabs 6RF K91.5 - Postcholecystectomy syndrome Discontinued cholestyramine-aspartame 4 gram (Cholestyramine Light) administer w/meal; avoid other meds within 1hr before or 4-6hr after dose Discontinued Reason: Change Referral Type 4 grams PO BID 60 ea 6RF K91.5 - Postcholecystectomy syndrome ULTRASOUND OF THE ABDOMEN FINDINGS: PANCREAS: Normal. ABDOMINAL AORTA: The proximal, mid, and distal segments are normal in caliber. INFERIOR VENA CAVA: Visualized portions are normal. LIVER: The liver is normal in size. The liver contour is normal. Parenchymal echogenicity is normal. No focal hepatic lesion. There is mild central bile duct dilatation which can be seen after cholecystectomy. GALLBLADDER: Surgically absent. COMMON BILE DUCT: Common bile duct is dilated postcholecystectomy measuring 1.4 cm in diameter. No distal obstructing lesion is seen. RIGHT KIDNEY: No hydronephrosis or renal calculi. The kidney measures 6.2 cm in maximum dimension. Multiple benign Bosniak class I renal cysts are noted, the largest at the lower pole measuring 1.4 cm, which require no additional imaging or follow-up. No solid renal masses are seen. LEFT KIDNEY: No hydronephrosis. No renal calculi or focal parenchymal lesions. The kidney measures 10.1 cm in maximum dimension. SPLEEN: Normal. The spleen measures 7.2 cm in maximum dimension. FREE FLUID: None. US/US abdomen complete IMPRESSION: No significant abnormality is seen. Prominent intrahepatic bile ducts and dilated common bile duct may be seen after cholecystectomy. If patient's elevated LFTs persist, MRCP may be useful for further evaluation. TODAY'S VISIT The shaila did not do anything. She did discover that she had less toileting troubles when she stopped drinking coffee in the morning. She did well in the past on imodium but her only objection is that it is expensive to buy OTC. I will see if insurance will cover it as this would be a good place to start with medications. Her diarrhea is worse with milk, meat and some veggies as well as coffee. She continues to perseverate on her chronic widespread body and back pain. She says I'm used to having a lot of medications for pain and now no one will give them to me because of my liver and kidney problems. 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 ROV next available. [facility] Medical History Encounter for general adult medical examination without abnormal findings Liver disease Polyarthralgia Lumbar degenerative disc disease ISSAC (generalized anxiety disorder) HTN (hypertension) Chronic back pain Renal stones Surgical History History of left knee replacement History of left hip replacement Hx of section S/P cholecystectomy H/O laminectomy Family History Mother Colitis Maternal Uncle Cancer Family/Other Cancer Social History Household Members: Other Household Members Other:: Roommate x1 Housing: Other Housing Other:: Roommate 75 years or older and lives alone: No Alcohol intake: former 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 Patient Tobacco Use Status: Current everyday Tobacco user Tobacco use type: Cigarette Cigarettes Per Day: 6 Years Smoked: 40 e-Cigarette/Vaping Use: Currently Using Substance Use Type: Marijuana service: No Current occupational status: disabled Current occupational exposures/hazards: No Sexual orientation: Straight/Heterosexual Gender identity: Female Cognitive needs: No Hearing needs: No Vision needs: Yes Review of Systems Const Denies fatigue, Denies fever(s), Denies night sweats, Denies poor appetite and Denies weight loss Eyes Details: Glasses Reports requires corrective lenses ENT Reports Normal hearing present, Denies dental pain, Denies dysphagia, Denies hearing loss, Denies mouth pain, Reports neck pain, Denies odynophagia, Denies throat swelling, Denies tongue swelling and Reports other (Dentition adequate) Card Reports no additional complaints Resp Reports no additional complaints GI Details: Denies abdominal pain, Denies melena, Denies bloating, Denies hematochezia, Denies constipation, Denies GI cramping, Denies dysphagia, Denies excessive flatus, Denies early satiety, Denies heartburn, Reports diarrhea, Denies nausea, Denies odynophagia, Denies vomiting and Denies hematemesis Musc Reports back pain, Reports myalgias, Reports arthralgias, Reports joint swelling, Reports limited range of motion, Reports neck pain and Reports radiating pain into limb Skin/Breast Denies pruritus, Denies lesions, Denies rash and Denies jaundice Neuro Reports Normal hearing present, Denies Abnormal speech present and Reports paresthesias Psych Reports anxiety Endo Denies fatigue Aller/Immun Denies throat swelling and Denies tongue swelling Physical Exam Vital Signs: BMI result Body Mass Index 26.1 Const General: cooperative, no acute distress, well developed and well groomed Nutritional Appearance: average body habitus and well nourished Orientation/consciousness: oriented to person, oriented to place and oriented to time Limitations: No language barrier HEENT Head: Yes normocephalic and Yes atraumatic Eyes General: appearance normal, both eyes and all related structures Pupils: Equal, round and reactive pupils present Neck Neck: Yes normal visual inspection and Yes no lymphadenopathy Thyroid: Thyroid normal Resp Effort & Inspection: normal respiratory effort and able to speak in complete sentences Auscultation: clear to auscultation bilaterally Cardio Rate: regular rate Rhythm: regular rhythm Heart sounds: Normal, physiologic split S2 sound present Peripheral pulses: radial pulses present and posterior tibial pulses present GI Inspection: No distended and No Abdominal panniculus present Palpation (GI): Soft to palpation, nontender, no guarding, not rigid and No hepatosplenomegaly present Percussion: Yes normal to percussion Auscultation: normal bowel sounds Rectal Exam - Female: deferred Skin General skin exam: no rashes or lesions noted, turgor normal, skin not dry, no jaundice, No spider nevi and no striae Rashes: no rashes Nails: normal Neuro General: oriented to person, oriented to place and oriented to time Cranial nerves: Yes Equal, round and reactive pupils present and Yes Normal hearing present Speech: No Abnormal speech present Extrem General: Yes normal to inspection, No clubbing, No cyanosis and No edema Psych Appearance: grossly normal and well kempt Mental Status: mental status grossly normal Speech and movement: Normal speech and movement present Affect: normal affect Attitude: cooperative Thought process: Normal thought process present and not confabulating Thought content: Normal thought content present Insight: Limited insight present (Psych) Judgement: Limited judgement present (Psych) Results Reviewed Results Reviewed: ULTRASOUND OF THE ABDOMEN FINDINGS: PANCREAS: Normal. ABDOMINAL AORTA: The proximal, mid, and distal segments are normal in caliber. INFERIOR VENA CAVA: Visualized portions are normal. LIVER: The liver is normal in size. The liver contour is normal. Parenchymal echogenicity is normal. No focal hepatic lesion. There is mild central bile duct dilatation which can be seen after cholecystectomy. GALLBLADDER: Surgically absent. COMMON BILE DUCT: Common bile duct is dilated postcholecystectomy measuring 1.4 cm in diameter. No distal obstructing lesion is seen. RIGHT KIDNEY: No hydronephrosis or renal calculi. The kidney measures 6.2 cm in maximum dimension. Multiple benign Bosniak class I renal cysts are noted, the largest at the lower pole measuring 1.4 cm, which require no additional imaging or follow-up. No solid renal masses are seen. LEFT KIDNEY: No hydronephrosis. No renal calculi or focal parenchymal lesions. The kidney measures 10.1 cm in maximum dimension. SPLEEN: Normal. The spleen measures 7.2 cm in maximum dimension. FREE FLUID: None. US/US abdomen complete IMPRESSION: No significant abnormality is seen. Prominent intrahepatic bile ducts and dilated common bile duct may be seen after cholecystectomy. If patient's elevated LFTs persist, MRCP may be useful for further Assessment & Plan Assessment & Plan (1) Post-cholecystectomy syndrome: Code(s): K91.5 - Postcholecystectomy syndrome Category: Medical (2) Diarrhea: Code(s): R19.7 - Diarrhea, unspecified Category: Medical Plan The carafate did not do anything. She did discover that she had less toileting troubles when she stopped drinking coffee in the morning. She did well in the past on imodium but her only objection is that it is expensive to buy OTC. I will see if insurance will cover it as this would be a good place to start with medications. Her diarrhea is worse with milk, meat and some veggies as well as coffee. She continues to perseverate on her chronic widespread body and back pain. She says I'm used to having a lot of medications for pain and now no one will give them to me because of my liver and kidney problems. 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 ROV next available. Medications: New loperamide (Imodium A-D) 2 mg PO QID 90 caps 6RF loose stool K91.5 - Postcholecystectomy syndrome, R19.7 - Diarrhea, unspecified Discontinued sucralfate (Carafate) Discontinued Reason: Doctor's Order 2 grams (2 x 1 gram) PO QNOON 60 tabs 6RF K91.5 - Postcholecystectomy syndrome Coding Level of Care Code Est Pt Level 3 (65134) Diagnoses Post-cholecystectomy syndrome K91.5 Diarrhea R19.7
[2024-07-24 14:41] VITALS: BMI 26.1
--- OUTSIDE RECORDS SUMMARY | 2024-07-24 18:18 | XMS_ITS | Data Portability ---
Author Organization [place] - [facility], autoContract - [facility] Address [address] [place] [address] Care Team Providers Care Industrial Relations Officer Name Role Phone REBECCA ESCALONA OTHER [phone] MARIA GARCIA OTHER Assessment No assessment recorded. [...] By Organization Details Last Modified Time 06/06/2018 [id number] deciding about using medicines to quit smoking [...] telem etry No observ ation record ed. [employer] [address], [place], [address], 06/28/2018 17:37:34 06/24/19 19 [place], echoc ardio gram No observ ation record ed. BARCODE Not Available 2018 18:52:06 Result Notes None recorded. Problems Name Problem SNOMED Code Status Onset Date Resolution Date Notes Provider Name and Address Organization Details Recorded Time Palpitati ons 50971530 Active 2017 Sena Kurt, RMA null, [facility] 8 12:57:03 Obesity 683819775 Active Sena Kurt, RMA null, [facility] 8 12:57:03 Degenerat ion of lumbar intervert ebral disc 40329173 Completed 03/14/2018 Sena Kurt, RMA null, [facility] 8 12:58:14 Visual disturban ce 26172065 Completed 201703/14/2018 Sean Kurt, RMA null, [facility] 8 12:57:44 Degenerat anita joint disease involving multiple joints 598989069 Completed 03/14/2018 Sena Kurt, RMA null, [facility] 8 12:58:34 Intermitt ent palpitati ons 601030052 Active 2017 Sena Kurt, RMA null, [facility] 8 12:57:03 Depressiv e disorder 20721764 Active Sena Kurt, RMA null, [facility] 8 12:57:03 Chronic pain syndrome 163814977 Completed 03/14/2018 Sena Kurt, RMA null, [facility] 8 12:58:43 Mild memory disturban ce 369922784 Completed 201703/14/2018 Sena Kurt, RMA null, [facility] 8 12:58:23 Increased frequency of urination 154565098 Completed 201703/14/2018 Sena Kurt, RMA null, [facility] 8 12:58:27 Carpal tunnel syndrome 14444858 Active Sena Kurt RMA null, [facility] 8 12:57:03 Long-term current use of opiate analgesic drug 628074178705 108 Active 2017 Sena Kurt, RMA null, [facility] 8 12:57:03 Asthma 930492523 Completed 03/14/2018 Sena Kurt, RMA null, [facility] 8 12:58:31 Mixed anxiety and depressiv e disorder 960253914 Completed 03/14/2018 Sena Kurt, RMA null, [facility] 8 12:58:37 Benign essential hypertens ion 0912170 Active Sena Kurt, RMA null, [facility] 8 12:57:03 Shoulder joint pain 410745609 Completed 03/14/2018 Sena Kurt, RMA null, [facility] 8 12:58:47 Cigarette smoker 42794314 Active Sena Kurt, RMA null, [facility] 8 12:57:03 Closed fracture of phalanx of foot 35442822 Completed 03/14/2018 Sena Kurt, RMA null, [facility] 8 12:57:39 Feeling nervous 939402036 Completed 03/14/2018 Sena Kurt, RMA null, [facility] 8 12:57:57 Osteopeni a 169659963 Completed 03/14/2018 Sena Kurt, RMA null, [facility] 8 12:58:01 Overweigh t 011130822 Completed 201703/14/2018 Sena Ukrt, RMA null, [facility] 8 12:58:11 Degenerat ion of lumbosacr al intervert ebral disc 34662165 Completed 03/14/2018 Sena Hicks RMA null, [facility] 8 12:57:48 Gastroeso phageal reflux disease 294285671 Active Sena Hicks RMA null, [facility] 8 12:57:03 Menopausa l symptom 40804786 Completed 03/14/2018 Sena Hicks RMA null, [facility] 8 12:58:18 History of hepatitis C 193217565133 Completed 201703/14/2018 Sena Kurt RMA null, [facility] 8 12:57:36 Malaise and fatigue 910620759 Completed 201703/14/2018 Sena Kurt RMA null, [facility] 8 12:58:05 Problem Notes None recorded. Procedures Surgical History Date Name Laterality Status Provider Name and Address Organization Details Recorded Time 06/19/19 19 Echocardiogram completed Nida Reyes [facility] 06/24/2018 17:47:42 Other completed Sena Hicks, ARVINDA [facility] 02/18/2018 10:05:38 Other completed Sena Kurt, ARVINDA [facility] 02/18/2018 10:05:58 Other completed Sena Hicks, RMA [facility] 02/18/2018 10:06:10 Cholecystectomy w/cholang completed Sena Hicks, ARVINDA [facility] 02/18/2018 10:06:30 Tubal Ligation completed ARVIND TapiaA [facility] 02/18/2018 14:35:35 Imaging Results Imaging Date Name Status LastModified by Organization Details LastModified Time 06/06/2018 electrocardiogram completed Informa tion not available 06/06/2018 18:44:44 06/19/2018 US, echocardiogram completed [facility] Inform ation not available 06/19/2018 10:19:56 06/19/2018 cardiac telemetry completed [employer] [address], [place], [address], 06/28/2018 17:37:34 06/24/2018 US, echocardiogram completed BARCODE [...] Updated DateTime 9 152.4 cm 27.7 kg/m2 81833.1 2 g 70 /min 98 % 98 % 122 mm[Hg] 80 mm[Hg] Yohana Song [facility] 9 17:16:31 Social History Question Answer Notes LastModified by Organizat [employer] Details LastModified Time Tobacco Smoking Status Current Every Day Smoker Sena Hicks, SUNG juwan, [facility] 02/18/2018 10:04:50 Do You Have An Advance [...] Status Question Answer Note LastModified by Organizat [employer] Details LastModified Time What is your exercise [...] available 2017 10:04:19 Medical History Condition Response High Blood Pressure (Hypertension) Y Depression Y Arthritis Y Asthma Y Liver Disease/Hepatitis Y Gynecological HistoryNo gynecological history recorded. Obstetrics History GPAL:G 0 P 0 0 0 0 Past Encounters Encounter ID Performer Location Encounter Start Date Encounter Closed Date Diagnosis/Indication Diagnosis SNOMED-CT Code Diagnosis ICD10 Code Diagnosis Note [id number] [facility] [address] [place] [address] 05/05/2010 18:12:34 05/05/2010 19:18:30 [id number] Amaya Bullek (Elenita) [facility] [address] [place] [address] 05/10/2010 17:06:55 05/10/2010 18:50:11 [id number] [facility] [address] [place] [address] 05/31/2010 18:17:55 05/31/2010 19:23:28 [id number] [facility] [address] [place] [address] 10/04/2010 17:25:28 10/04/2010 18:04:57 [id number] Amaya Babatunde (Elenita) [facility] [address] [place] [address] 10/26/2010 15:30:56 10/26/2010 16:47:04 [id number] [facility] [address] [place] [address] 12/19/2010 19:34:25 12/19/2010 20:13:27 [id number] [facility] [address] [facility] [place] [address] 03/17/2011 14:44:01 03/17/2011 15:31:54 [id number] [facility] [address] [facility] [place] [address] 06/01/2011 12:28:37 06/01/2011 13:54:09 [id number] Amaya Fronek (Elenita) [facility] [address] [place] [address] 07/18/2012 19:08:12 07/19/2012 13:17:25 [id number] Amaya Fronek (Elenita) [facility] [address] [place] [address] 05/22/2013 16:22:52 05/23/2013 10:09:02 [id number] [facility] [address] [place] [address] 12/15/2013 18:32:26 12/15/2013 19:40:41 [id number] Essence Knowles, DO [facility] [address] [place] [address] 01/02/2014 10:53:17 01/02/2014 15:51:25 [id number] Bess Oh [facility] [address] [place] [address] 03/19/2014 15:04:03 03/19/2014 15:32:34 [id number] Carolin Gonzalez CCM A [facility] [address] [place] [address] 05/10/2015 15:37:23 05/11/2015 11:24:05 [id number] Kateryna Loredo [facility] [address] [place] [address] 07/13/2015 15:34:17 07/14/2015 12:42:51 [id number] Barby Rogel MD [facility] [address] [facility] [place] [address] 05/15/2016 17:34:06 05/15/2016 19:08:03 [id number] Radha Mcmahon, DO [facility] [address] [facility] [place] [address] 08/18/2016 19:13:26 08/21/2016 03:16:32 [id number] Ashtyn ArroyoAPRILP [facility] [address] [place] [address] 08/06/2017 16:20:46 08/06/2017 21:19:04 [id number] [facility] [employer] [address] [place] [address] 02/11/2018 16:01:06 02/11/2018 21:36:59 [id number] Poonam Quinn MD [facility] [address] [place] [address] 06/06/2018 16:55:47 06/10/2018 16:39:57 Overweight 626779176 E66.3 Diet: 1800 Calories Low Glycemic Diet Exercise: Work up to 30 min 5x/week as tolerated Electrocar diogram abnormal 240187690 R94.31 LVH Intermitte nt palpitations 782786418 R00.2 once per week last few seconds fast and regular for 4 to 5 beats for last 4- 5 yearsTSH normal Essential hypertension 04564437 I10 controlled with treatment Tobacco de pendence syndrome 47432791 F17.008 [id number] Poonam Quinn MD [facility] [place] [facility] [address] [place] [address] 06/19/2018 09:21:20 06/19/2018 10:16:22 Electrocardiogram abnormal 754667114 R94.31 LVH [id number] [facility], [employer] [facility] [address] [place] [address] 09/02/2018 16:58:51 09/03/2018 09:16:52 [id number] Ashtyn ArroyoASHTYN [facility] [address] [place] [address] 11/12/2018 15:01:58 11/12/2018 18:51:23 [id number] Ashtynalistair Bolivar, SH[employer] HOLDER [facility] [address] [place] [address] 11/29/2021 17:04:20 11/30/2021 06:58:32 [id number] Ashtyn Bolivar, SHARE HOLDER [facility] [address] [place] [address] 12/15/2021 12:22:05 12/16/2021 08:34:45 [id number] Kai Davis MD [facility] [place] [address] [place] [address] 01/11/2022 16:24:26 01/11/2022 17:30:02 [id number] Kai Davis MD [facility] [address] [place] [address] 02/21/2022 10:08:23 02/21/2022 14:16:00 [id number] Ashtynalistair Bolivar, SH[employer] HOLDER [facility] [address] [place] [address] 03/06/2022 17:54:38 03/07/2022 23:28:20 [id number] Ashtyn Bolivar, SHARE HOLDER [facility] [address] [place] [address] 05/11/2022 15:06:18 05/12/2022 06:02:02 Health Concerns Section Related Observation LastModified by Organization Detai ls LastModified Time None Recorded Concern Status LastModified by Organization Details LastModified Time None Recorded Advance Directives Directive N: Payers Encounter Date Sequence Insurance Name Policy Number Policy Crawley Covered Member ID Crawley Member ID Guarantor Name 06/06/2018 1 [facility] DUAL ELIGIBLE (MEDICARE REPLACEMENT/ ADVANTAGE - HMO) [facility] Sangita Umana [id number] Sangita Umana 06/06/[address] [facility] (MEDICAID HMO) Sangita Umana [id number] Sangita Umana 06/19/2018 1 [facility] [place] ([place]ARE REPLACEMENT/ ADVANTAGE - HMO) [facility] Sangita Grace Dong [id number] Sangita C Dong 06/19/[address] [facility] (MEDICAID HMO) Sangita Grace Dong [id number] Sangita Umana Notes Date Note Type Note Provider Name and Address Organization Details Recorded Time 06/06/2018 text/html [facility] PI 1Reported bypatient.Notes:Saqib nieto seen [...] or near [place] [address], [place], [address], [facility] 06/06/2018 18:09:31 OBGyn Episode No OBEpisode recorded.
--- OUTSIDE RECORDS SUMMARY | 2024-07-24 18:18 | XMS_ITS | Continuity of Care Document ---
Author Organization [facility][Note 3] ter Address [address] [place] [address] Phone Care Team Providers Care Insole Beveler Name Role Phone Zainab Guzman MD Unavailable Unavailable Procedures Procedure Date Cancel Fee 1st Occurrence Advance Directives Directive Yes / No Effective Date File Name No Information Encounters Encounter Description Practice Location Reason(s) For Visit Diagnoses Date Provider Providers Copied on Encounter [facility], [address] [place], [id number], [place] tel:[phone] No Information 3 Thomas Lamb. [facility] [place], [place], [id number] , . tel:[phone] Referring Provider: Zainab Guzman, [facility] [place], [address] . tel:[phone] Family History Family Member Type Diagnosis Age At Onset No Information Payers Payer name Insurance type Covered constitution party ID Authoriza tion(s) No Information Social [...]
--- OUTSIDE RECORDS SUMMARY | 2024-07-24 18:19 | XMS_ITS | Clinical Summary ---
Author Organization [facility] Address [address] [place] [address] Care Team Providers Care Media Center Assistant Name Role Phone Zainab Kaiser Primary Care Provider [phone] Source Comments PLEASE NOTE, if this patient [...] Description 06/09/2024 3:40 PM EST Office Visit [address] [address] Zainab Kaiser PA Pain management [...] f 2) 2007 Bone Density Screening 2022 [id number] () 12/30/2023 Imm-Influenza (#1) 2023 Depression Monitoring [...] stage 3a or 3b CKD ([facility]) from Last 3 Months or Most Recently Relevant to Health Maintenance Results * REFERRAL TO ORTHOPEDICS (06/11/2024 3:00 AM EST) 06/11/2024 3:00 AM EST us Zainab JAMES REFERRAL Final Result * (ABNORMAL) COMPREHENSIVE METABOLIC PANEL (11/22/2023 4:09 PM EDT) GLUCOSE 82 65 - 99 mg/dL [facility] Comment: ?Fasting reference interval UREA NITROGEN (BUN) 27(H) 7 - 25 mg/dL [facility] CREATININE (blood) 1.57(H) 0.50 - 1.05 mg/dL [facility] EGFR 36(L) > OR = 60 mL/min/1. 73m2 [facility] BUN/CREATININE RATIO 17 6 - 22 (calc) [facility] SODIUM 138 135 - 146 mmol/L [facility] POTASSIUM 4.2 3.5 - 5.3 mmol/L [facility] CHLORIDE 102 98 - 110 mmol/L [facility] CARBON DIOXIDE 28 20 - 32 mmol/L [facility] CALCIUM 10.1 8.6 - 10.4 mg/dL [facility] PROTEIN, TOTAL 7.4 6.1 - 8.1 g/dL [facility] ALBUMIN 4.9 3.6 - 5.1 g/dL [facility] GLOBULIN 2.5 1.9 - 3.7 g/dL (calc) [facility] ALBUMIN/GLOBULI N RATIO 2.0 1.0 - 2.5 (calc) [facility] BILIRUBIN, TOTAL 0.7 0.2 - 1.2 mg/dL [facility] ALKALINE PHOSPHATASE 57 37 - 153 U/L [facility] AST 23 10 - 35 U/L [facility] ALT 18 6 - 29 U/L [facility] Blood Blood / Unknown 11/22/2023 4 :09 PM EDT 11/22/2023 4:09 PM EDT Narrative [facility] - 11/23/2023 10:52 AM EDT SPLIT 11/22/2023 FROM [id number] us Zainab JAMES LAB - BLOOD DRAW Final Result [facility] [address] [address], [facility] [address] [address] from Last 3 Months or Most Recently Relevant to Health Maintenance Insurance [facility] [place] MED[place] Care Teams Media Center Assistant Relationship Specialty Start Date End Date Zainab Kaiser PA [address] [place] [address] PCP - General Primary Care 09/14/23
--- OUTSIDE RECORDS SUMMARY | 2024-07-24 18:19 | XMS_ITS | Data Portability ---
Author Organization [facility] - MARY Parks Address [address] [place] [address] Care Team Providers Care Skin Care Therapist Name Role Phone MARY ESCOTO Primary Care Provider Assessment No assessment recorded. Plan of Treatment Reminders Order Date Submit Date Provider Last Modified By Organization Details Last Modified Time Details Appointments None record ed. Lab None record ed. Referral None record ed. Procedures None record ed. Surgeries None record ed. Imaging None record ed. Medication Orders None record ed. Patient TargetsNo targets recorded. Patient Instructions Encounter Date Encounter Id Patient Instructions Last Modified By Organization Details Last Modified Time 08/24/2022 [id number] learning about healthy weight Not available 08/24/2022 17:14:04 smoking cessatio n counseling Not available 08/24/2022 17:14:04 Reviewed imaging including MRI cervical spine Reviewed MRI lumbar spine Obtain records from prior pain doc at [facility]--patient did not present today with a discharge letter Urine drug screen in office today--- patient states she will be positive for both THC and oxycodone--it is unclear if prior pain group were okay with patient utilizing THC are not -- I discussed I am not comfortable providing this patient with schedule II opioids while she continues to utilize THC -- Consideration for return back to low-dose Belbuca We will contact patient once UDS and prior records can be reviewed Consideration in future for spinal cord stimulator or lumbar MBB/RFA Not available 08/24/2022 16:51:57 09/12/2022 [id number] We will rereques t records from prior pain group UDS reviewed I discussed I will not provide her with oxycodone and she is concurrently using THC. She does not feel willing to discontinue her THC. I discussed we can consider low-dose Belbuca as an option. Additionally consideration for lumbar MBB/RFA or spinal cord stimulator trial in future as options for pain control once records are reviewed Not available 09/12/2022 14:41:08 Reason for Referral None Reported. Results Created Date Observation Date Name Description Value Unit Range Abnormal Flag Note LastModifiedBy Organization Detail LastModifiedTime 08/25/19 23 08/25/2022 VALID ITY creatinine Normal mg/dL 20 - 400 Not Available [facility] [address] [place] [address], [place], [address], 08/25/2022 22:53:13 08/25/19 23 08/25/2022 VALID ITY pH Normal 4.0 - 9.5 Not Available [facility] [address] [place] [address], [place], [address], 08/25/2022 22:53:13 08/25/19 23 08/25/2022 VALID ITY specific gravity Normal 1.0030 - 1.0350 normal Not Available [facility] [address] [place] [address], [place], [address], 08/25/2022 22:53:13 08/25/19 23 08/25/2022 UDT SCREE N opi Neg Not Available [facility] [address] [place] [address], [place], [address], 08/25/2022 22:53:13 08/25/19 23 08/25/2022 UDT SCREE N THC Pos Not Available [facility] [address] [place] [address], [place], [address], 08/25/2022 22:53:13 08/25/19 23 08/25/2022 UDT SCREE N fentanyl Neg Not Available [facility] [address] [place] [address], [place], [address], 08/25/2022 22:53:13 08/25/19 23 08/25/2022 UDT SCREE N kaur Neg Not Available [facility] [address] [place], [place] [address], [place], [address], 08/25/2022 22:53:13 08/25/19 23 08/25/2022 UDT SCREE N madisyn Neg Not Available [facility] [address] [place], [place] [address], [place], [address], 08/25/2022 22:53:13 08/25/19 23 08/25/2022 UDT SCREE N pcp Neg Not Available [facility] [address] [place], [place] [address], [place], [address], 08/25/2022 22:53:13 08/25/19 23 08/25/2022 UDT SCREE N mdn Neg Not Available [facility] [address] [place], [place] [address], [place], [address], 08/25/2022 22:53:13 08/25/19 23 08/25/2022 UDT SCREE N oxy Pos Not Available [facility] [address] [place], [place] [address], [place], [address], 08/25/2022 22:53:13 08/25/19 23 08/25/2022 UDT SCREE N bup Neg Not Available [facility] [address] [place] [address], [place], [address], 08/25/2022 22:53:13 08/25/19 23 08/25/2022 UDT SCREE N amp Neg Not Available [facility] [address] [place], [place] [address], [place], [address], 08/25/2022 22:53:13 08/25/19 23 08/25/2022 UDT SCREE N ETOH Neg <50.0 Not Available [facility] [address] [place] [address], [place], [address], 08/25/2022 22:53:13 08/25/19 23 08/28/2022 ALCOH OL BIOMA RKERS etg Negati ve NG/mL <500 Not Available [facility] [address] [place] [address], [place], [address], 09/01/2022 14:09:59 08/25/19 23 08/28/2022 ALCOH OL BIOMA RKERS ets Negati ve NG/mL <500 Not Available [facility] [address] [place] [address], [place], [address], 09/01/2022 14:09:59 08/25/19 23 08/28/2022 AMPHE TAMIN ES methamphetam ine Negati ve NG/mL <100 Not Available [facility] [address] [place] [address], [place], [address], 09/01/2022 14:09:59 08/25/19 23 08/28/2022 AMPHE TAMIN ES amphetamine Negati ve NG/mL <100 Not Available [facility] [address] [place] [address], [place], [address], 09/01/2022 14:09:59 08/25/19 23 08/28/2022 AMPHE TAMIN ES phentermine Negati ve NG/mL <100 Not Available [facility] [address] [place] [address], [place], [address], 09/01/2022 14:09:59 08/25/19 23 08/28/2022 VIC TURAT ES butalbital Negati ve NG/mL <100 Not Available [facility] [address] [place] [address], [place], [address], 09/01/2022 14:10:00 08/25/19 23 08/28/2022 VIC TURAT ES phenobarbita l Negati ve NG/mL <100 Not Available [facility] [address] [place] [address], [place], [address], 09/01/2022 14:10:00 08/25/19 23 08/28/2022 BENZO DIAZE PINES alprazolam Negati ve NG/mL <20 Not Available [facility] [address] [place] [address], [place], [address], 09/01/2022 14:10:00 08/25/19 23 08/28/2022 BENZO DIAZE PINES hydroxyalpra zolam Negati ve NG/mL <40 Not Available [facility] [address] [place] [address], [place], [address], 09/01/2022 14:10:00 08/25/19 23 08/28/2022 BENZO DIAZE PINES chlordiazepo xide Negati ve NG/mL <20 Not Available [facility] [address] [place] [address], [place], [address], 09/01/2022 14:10:00 08/25/19 23 08/28/2022 BENZO DIAZE PINES clonazepam Negati ve NG/mL <100 Not Available [facility] [address] [place] [address], [place], [address], 09/01/2022 14:10:00 08/25/19 23 08/28/2022 BENZO DIAZE PINES aminoclonaze bisi Negati ve NG/mL <100 Not Available [facility] [address] [place] [address], [place], [address], 09/01/2022 14:10:00 08/25/19 23 08/28/2022 BENZO DIAZE PINES diazepam Negati ve NG/mL <20 Not Available [facility] [address] [place] [address], [place], [address], 09/01/2022 14:10:00 08/25/19 23 08/28/2022 BENZO DIAZE PINES nordiazepam Negati ve NG/mL <40 Not Available [facility] [address] [place] [address], [place], [address], 09/01/2022 14:10:00 08/25/19 23 08/28/2022 BENZO DIAZE PINES temazepam Negati ve NG/mL <50 Not Available [facility] [address] [place] [address], [place], [address], 09/01/2022 14:10:00 08/25/19 23 08/28/2022 BENZO DIAZE PINES oxazepam Negati ve NG/mL <50 Not Available [facility] [address] [place] [address], [place], [address], 09/01/2022 14:10:00 08/25/19 23 08/28/2022 BENZO DIAZE PINES lorazepam Negati ve NG/mL <50 Not Available [facility] [address] [place] [address], [place], [address], 09/01/2022 14:10:00 08/25/19 23 08/28/2022 BENZO DIAZE PINES triazolam Negati ve NG/mL <20 Not Available [facility] [address] [place] [address], [place], [address], 09/01/2022 14:10:00 08/25/19 23 08/28/2022 BENZO DIAZE PINES hydroxytriaz olam Negati ve NG/mL <20 Not Available [facility] [address] [place] [address], [place], [address], 09/01/2022 14:10:00 08/25/19 23 08/28/2022 BUPRE NORPH INE buprenorphin e Negati ve NG/mL <5 Not Available [facility] [address] [place] [address], [place], [address], 09/01/2022 14:10:01 08/25/19 23 08/28/2022 BUPRE NORPH INE norbuprenorp giovana Negati ve NG/mL <10 Not Available [facility] [address] [place] [address] [address], [place], [address], 09/01/2022 14:10:01 08/25/19 23 08/28/2022 GEOVANI SAUNDERS DS, NATTIFFANY AL THC-cooh 134 NG/mL <25 high Not Available [facility] [address] [place] [address] [address], [place], [address], 09/01/2022 14:10:01 08/25/19 23 08/28/2022 COCAI NE benzoylecgon ine Negati ve NG/mL <50 Not Available [facility] [address] [place] [address] [address], [place], [address], 09/01/2022 14:10:02 08/25/19 23 08/28/2022 FENTA NYLS fentanyl Negati ve NG/mL <3 Not Available [facility] [address] [place], [place] [address], [place], [address], 09/01/2022 14:10:02 08/25/19 23 08/28/2022 FENTA NYLS norfentanyl Negati ve NG/mL <8 Not Available [facility] [address] [place] [address] [address], [place], [address], 09/01/2022 14:10:02 08/25/19 23 08/28/2022 HEROI N METAB OLITE 6-COLLIN Negati ve NG/mL <10 Not Available [facility] [address] [place] [address] [address], [place], [address], 09/01/2022 14:10:03 08/25/19 23 08/28/2022 METHA DONE methadone Negati ve NG/mL <100 Not Available [facility] [address] [place] [address] [address], [place], [address], 09/01/2022 14:10:04 04/2708/28/2022 METHA DONE EDDP Negati ve NG/mL <100 Not Available [facility] [address] [place] [address], [place], [address], 09/01/2022 14:10:04 08/25/19 23 08/28/2022 METHY LENED IOXYA MPHET AMINE S MDMA Negati ve NG/mL <50 Not Available [facility] [address] [place] [address], [place], [address], 09/01/2022 14:10:04 08/25/19 23 08/28/2022 OPIAT ES codeine Negati ve NG/mL <50 Not Available [facility] [address] [place] [address], [place], [address], 09/01/2022 14:10:04 08/25/19 23 08/28/2022 OPIAT ES dihydrocodei ne Negati ve NG/mL <25 Not Available [facility] [address] [place], [place] [address], [place], [address], 09/01/2022 14:10:04 08/25/19 23 08/28/2022 OPIAT ES morphine Negati ve NG/mL <50 Not Available [facility] [address] [place] [address] [address], [place], [address], 09/01/2022 14:10:04 08/25/19 23 08/28/2022 OPIAT ES hydrocodone Negati ve NG/mL <50 Not Available [facility] [address] [place], [place] [address], [place], [address], 09/01/2022 14:10:04 08/25/19 23 08/28/2022 OPIAT ES hydromorphon e Negati ve NG/mL <50 Not Available [facility] [address] [place], [place] [address], [place], [address], 09/01/2022 14:10:04 08/25/19 23 08/28/2022 OPIOI DS AND OPIAT E ANALO GS dextromethor luke Negati ve NG/mL <100 Not Available [facility] [address] [place] [address], [place], [address], 09/01/2022 14:10:05 08/25/19 23 08/28/2022 OPIOI DS AND OPIAT E ANALO GS levorphanol Negati ve NG/mL <5 Not Available [facility] [address] [place] [address], [place], [address], 09/01/2022 14:10:05 08/25/19 23 08/28/2022 OPIOI DS AND OPIAT E ANALO GS naloxone Negati ve NG/mL <10 Not Available [facility] [address] [place] [address], [place], [address], 09/01/2022 14:10:05 08/25/19 23 08/28/2022 OXYCO DONE oxycodone 125 NG/mL <50 high Not Available [facility] [address] [place] [address], [place], [address], 09/01/2022 14:10:06 08/25/19 23 08/28/2022 OXYCO DONE noroxycodone 859 NG/mL <25 high Not Available [facility] [address] [place] [address], [place], [address], 09/01/2022 14:10:06 08/25/19 23 08/28/2022 OXYCO DONE oxymorphone 142 NG/mL <50 high Not Available [facility] [address] [place] [address], [place], [address], 09/01/2022 14:10:06 08/25/19 23 08/28/2022 SKELE BARRIE MUSCL E RELAX ANTS carisoprodol Negati ve NG/mL <100 Not Available [facility] [address] [place] [address], [place], [address], 09/01/2022 14:10:06 08/25/19 23 08/28/2022 SKELE BARRIE MUSCL E RELAX ANTS meprobamate Negati ve NG/mL <200 Not Available [facility] [address] [place] [address] , [place], [address], 09/01/2022 14:10:06 08/25/19 23 08/28/2022 TAPEN TADOL tapentadol Negati ve NG/mL <25 Not Available [facility] [address] [place] [address] , [place], [address], 09/01/2022 14:10:07 08/25/19 23 08/28/2022 TRAMA DOL tramadol Negati ve NG/mL <100 Not Available [facility] [address] [place] [address] , [place], [address], 09/01/2022 14:10:07 08/25/19 23 08/28/2022 TRAMA DOL O-desmethylt ramadol Negati ve NG/mL <100 Not Available [facility] [address] [place] [address] , [place], [address], 09/01/2022 14:10:07 Result Notes None recorded. Problems Name Problem SNOMED Code Status Onset Date Resolution Date Notes Provider Name and Address Organization Details Recorded Time Chronic pain 92417315 Active 2022 Bruce Rich DO [address] [place] [address], [facility], [place], [address], [facility] 3 15:50:14 Lumbar post-laminecto my syndrome 621801230 Active 2022 Bruce Rich DO [address] [place] [address], [address], [place], [address], [facility] 3 15:50:25 Degeneration of cervical intervertebral disc 05822674 Active 2022 Bruce Rich DO [address] [place] [address], [address], [place], [address], [facility] 3 15:50:34 Lumbar spondylosis 302130230 Active 2022 [place] [address], [address], [place], [address], [facility] 3 15:51:34 Problem Notes None recorded. Medical Equipment None Reported. Allergies No known drug allergies Medications Name Sig Start Date Stop Date Status Note LastModified by Organization Details LastModified Time amlodipine 5 mg tablet 08/20 completed Not Available Not Available Not Available aspirin 81 mg tablet,delayed release active Not Available Not Available Not Available doxycycline monohydrate 100 mg tablet 08/20 completed Not Available Not Available Not Available oxycodone-acetam inophen 5 mg-325 mg tablet active Not Available Not Available No t Available cephalexin 500 mg capsule 08/20 completed Not Available Not Available Not Available lisinopril 10 mg tablet active Not Available Not Available Not Available montelukast 10 mg tablet active Not Available Not Available No t Available mupirocin 2 % topical ointment 08/20 completed Not Available Not Available Not Available metoprolol succinate ER 25 mg tablet,extended release 24 hr active Not Available Not Availabl e Not Available methylprednisolo ne 4 mg tablets in a dose pack 08/20 completed Not Available Not Available Not Available albuterol sulfate HFA 90 mcg/actuation aerosol inhaler active Not Available Not Availa ble Not Available topiramate 100 mg tablet active Not Available Not Available No t Available lisinopril 2.5 mg tablet 08/20 completed Not Available Not Available Not Available topiramate 50 mg tablet 08/20 completed Not Available Not Available Not Available duloxetine 60 mg capsule,delayed release active Not Available Not Available Not Available diclofenac 1 % topical gel active Not Available Not Available Not Available Belbuca 300 mcg buccal film 08/20 completed Not Available Not Available Not Available Belbuca 150 mcg buccal film 08/20 completed Not Available Not Available Not Available naloxone 4 mg/actuation nasal spray 08/20 completed Not Available Not Available Not Available Vitals Date Recorded Body height Body mass index (BMI) Body weight Body temperature Provider Name and Address Organization Details Last Updated DateTime 08/24/2022 147.32 cm 26.1 kg/m2 21938.05 g 98 [degF] Mary Anne Han [facility] 08/24/2022 16:56:22 Date Recorded Body height Body mass index (BMI) Body weight Body temperature Provider Name and Address Organization Details Last Updated DateTime 09/12/2022 147.32 cm 26.1 kg/m2 24668.05 g 98 [degF] Mary Anne Han [facility] 09/12/2022 13:49:07 Social History Question Answer Notes LastModified by Organizat ion Details LastModified Time Tobacco Smoking Status Current Every Day Smoker Mary Anne echeverria [facility] 08/24/2022 15:31:42 What Is Your Level Of Alcohol Consumption? None [email or web address] Information not available 08/24/2022 How Much Tobacco Do You Chew? None Information not available 08/24/2022 What Is Your Occupation? Retired [email or web address] Information not available 08/24/2022 Last Dental Exam 10/07/2018 [email or web address] Informat ion not available 08/24/2022 Are You On Disability Or Applying For It? Yes [email or web address] Information not available 08/24/2022 Marital Status [email or web address] Informatio n not available 08/24/2022 Employment Status Disabled [email or web address] Informa tion not available 08/24/2022 Last Day Of Work 06/03/2014 [email or web address] Informat ion not available 08/24/2022 Currently Receiving Or Applying For Disability [email or web address] Information not available 08/24/2022 Illicit Drug Use? No [email or web address] Informa tion not available 08/24/2022 What Was The Date Of Your Most Recent Tobacco Screening? 09/12/2022 [email or web address] Information not available 09/12/2022 Do You Or Have You Ever Used Smokeless Tobacco? Never Used Smokeless Tobacco [email or web address] Information not available 08/24/2022 How Much Tobacco Do You Smoke? 0.25 PPD Information not available 08/24/2022 Do You Use Any Illicit Or Recreational Drugs? No [email or web address] Information not available 08/24/2022 Has Tobacco Cessation Counseling Been Provided? Yes [email or web address] Information not available 09/12/2022 On What Date Was Tobacco Cessation Counseling Provided? 09/12/2022 [email or web address] Information not available 09/12/2022 Sex: Unknown Functional Status None recorded. Mental Status None recorded. Family History Nothing Reported Notes:stroke grandmother Medical History Condition Response Fibromyalgia Y Hypertension Y Asthma Y Gynecological HistoryNo gynecological history recorded. Obstetrics History GPAL:G 0 P 0 0 0 0 Past Encounters Encounter ID Performer Location Encounter Start Date Encounter Closed Date Diagnosis/Indication Diagnosis SNOMED-CT Code Diagnosis ICD10 Code Diagnosis Note [id number] Bruce Rich DO [facility] [address] [address] 08/24/2022 15:16:08 08/24/2022 16:43:34 Chronic pain 24261483 G89.29 Degenerati on of cervical intervertebral disc 85352878 M50.30 Lumbar post-laminectomy syndrome 500164966 M96.1 Lumbar spondylosis 18144 0009 M47.896 Increased body mass index 66319956 E66.3 Patient was educated about healthy weight Tobacco us e cessation education 288535316 Z71.6 [id number] Bruce Rich DO [facility] [address] [address] 09/12/2022 13:36:19 09/12/2022 14:25:47 Lumbar spondylosis 022313034 M47.896 Degenerati on of cervical intervertebral disc 08575348 M50.30 Lumbar post-laminectomy syndrome 704913611 M96.1 Chronic pain 72312993 G8 9.29 Health Concerns Section Related Observation LastModified by Organization Detai ls LastModified Time None Recorded Concern Status LastModified by Organization Details LastModified Time None Recorded Advance Directives Directive None Recorded Payers Encounter Date Sequence Insurance Name Policy Number Policy Crawley Covered Member ID Crawley Member ID Guarantor Name 08/24/[address] [facility] - DUAL ELIGIBLE (MEDICARE REPLACEMENT/A DVANTAGE - HMO) [facility] Sangita Umana [id number] Sangita Umana 09/12/[address] [facility] - DUAL ELIGIBLE (MEDICARE REPLACEMENT/A DVANTAGE - HMO) [facility] Sangita Umana [id number] Sangita Umana Notes Date Note Type Note Provider Name and Address Organization Details Recorded Time 08/24/2022 text/html Lumbar SpineReported bypatient.Location: lower lumbar Radiation:radiation to right leg Pain level:lumbar spine - 6/10; right leg - 6/10 Back pain timing:constant Leg pain timing:constant Quality:throbbing; sharp; stabbing; burning Modifying factors:standing - worsens; picking things up with my right hand 67-year-old female with history of chronic pain comes in for consultation. She has a history of chronic pain and is currently complaining of lumbar pain radiating down her right leg posteriorly and laterally to her mid calf. Additionally complains of spasms within her mid calf. She does have some right arm pain from her shoulder to her elbow and was told it is likely coming from her cervical spine. She was seeing an outside pain group since moving here from [place]. She completed a set of 3 cervical epidurals as well as several lumbar epidurals with benefit. She states she does not believe she has had injections since the winter. 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 She was then transition to Percocet 5 mg and was taking it 3 times daily. She states they have had a change in their providers and she is looking for an outside pain group as they will no longer continue [place] [address] [place] [address], [phone], [facility] 08/25/2022 11:39:12 09/12/2022 text/html Lumbar SpineReported bypatient.Location: lower lumbar Radiation:radiation to right leg Pain level:lumbar spine - 6/10; right leg - 6/10 Back pain timing:constant Leg pain timing:constant Quality:throbbing; sharp; stabbing; burning Modifying factors:standing - worsens; picking things up with my right hand 67-year-old female with history of chronic pain returns for follow-up. She has a history of chronic pain with chief complaint of lumbar pain radiating down her right leg posteriorly and laterally to her mid calf. Additionally complains of spasms within her mid calf. She does have some right arm pain from her shoulder to her elbow and was told it is likely coming from her cervical spine. She was seeing [facility] since moving here from [place]. She completed a set of 3 cervical epidurals as well as several lumbar epidurals with benefit. 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 She was then transition to Percocet 5 mg and was taking it 3 times daily. She states they have had a change in their providers and she is looking for an outside pain group as they will no longer continue her on this medication regimen.-- We still have not received the records from her prior pain group and her urine drug screen was reviewed positive for both oxycodone [place] [id number] [facility], [place], [address], [facility] 09/12/2022 14:41:22 OBGyn Episode No OBEpisode recorded.
--- OUTSIDE RECORDS SUMMARY | 2024-07-24 18:19 | XMS_ITS | Data Portability ---
Author Organization [place] - [facility], autoContract - [facility] Address [address] [facility] [address] [place] [address] Assessment No assessment recorded. Plan of Treatment Reminders Order Date Submit Date Provider Last Modified By Organization Details Last Modified Time Details Appointments None recorded. Lab culture, urine 011 [facility], [facility], [address], 3 04:00:47 Referral None recorded. Procedures None recorded. Surgeries None recorded. Imaging None recorded. Medication Orders Bactrim DS 800 mg-160 mg tablet 011 [facility] [id number], [address] , [place], [address], 3 04:00:47 Patient TargetsNo targets recorded. Patient InstructionsNo instructions recorded. Reason for Referral None Reported. Results Created Date Observation Date Name Description Value Unit Range Abnormal Flag Note LastModifiedBy Organization Detail LastModifiedTime 12/20/19 11 12/21/2010 cultu re, urine source urine-voided URINE- VOIDED Not Available [facility] [address], [address], 12/22/2010 03:34:08 12/20/19 11 12/21/2010 cultu re, urine culture, urine order ed test: cultu re,ur ine micro numbe r: [id number] test statu s: final speci men [...] A 1:100 0 dilut ion Not Available [facility] [address], [address], 12/22/2010 03:34:08 Result Notes None recorded. Problems Name Problem SNOMED Code Status Onset Date Resolution Date Notes Provider Name and Address Organization Details Recorded Time Dysuria 50303393 Active Not Available [facility] 01/21/2013 03:02:05 Problem Notes None recorded. Procedures Surgical History Date Name Laterality Status Provider Name and Address Organization Details Recorded Time 8 Hip Surgery completed Not Available [facility] 03/23/20 11 02:44:39 Imaging Results None recorded. [...] Details Last Updated DateTime 1 154.94 cm 61721.2 5712 g 33.3 kg/m2 98.1 [degF] 66 /min 98 % 98 % 128 mm[Hg] 81 mm[Hg] Amaya Fine (Elenita) [facility] 1 19:46:12 Social History Question Answer Notes LastModified by Organizat ion Details LastModified Time Tobacco Smoking Status Current Every Day Smoker Not Available [facility] 03/16/2011 05:14:21 What Is Your Level Of [...] History Nothing Reported. Medical History Condition Response High Blood Pressure (Hypertension) Y Back/Neck Pain Y Depression Y Arthritis Y Liver Disease/Hepatitis Y Urinary Problem Y Fibromyalgia Y Blood Disorder Y Osteopenia/Osteoporosis Y Spine Disease (Herniated Disc, Scoliosis , Stenosis) Y Gynecological HistoryNo gynecological history recorded. Obstetrics History GPAL:G 0 P 0 0 0 0 Past Encounters Encounter ID Performer Location Encounter Start Date Encounter Closed Date Diagnosis/Indication Diagnosis SNOMED-CT Code Diagnosis ICD10 Code Diagnosis Note [id number] [facility] [address] [facility] [place] [address] 05/05/2010 18:12:34 05/05/2010 19:18:30 [id number] Amaya Guo) [facility] [address] [facility] [place] [address] 05/10/2010 17:06:55 05/10/2010 18:50:11 [id number] [facility] [address] [facility] [place] [address] 05/31/2010 18:17:55 05/31/2010 19:23:28 [id number] [facility] [address] [facility] [place] [address] 10/04/2010 17:25:28 10/04/2010 18:04:57 [id number] Amaya Babatunde (Elenita) [facility] [address] [place] [address] 10/26/2010 15:30:56 10/26/2010 16:47:04 [id number] [facility] [address] [facility] [place] [address] 12/19/2010 19:34:25 12/19/2010 20:13:27 [id number] [facility] [address] [facility] [place] [address] 03/17/2011 14:44:01 03/17/2011 15:31:54 [id number] [facility] [address] [facility] [place] [address] 06/01/2011 12:28:37 06/01/2011 13:54:09 [id number] Amaya Fronek (Elenita) [facility] [address] [place] [address], [place] [address] 07/18/2012 19:08:12 07/19/2012 13:17:25 [id number] Amaya Fronek (Elenita) [facility] [address] [place] [address], [place] [address] 05/22/2013 16:22:52 05/23/2013 10:09:02 [id number] [facility] [address] [place] [address] 12/15/2013 18:32:26 12/15/2013 19:40:41 [id number] Essence Knowles, [facility] [address] [place] [address], [place] [address] 01/02/2014 10:53:17 01/02/2014 15:51:25 [id number] Bess Oh [facility] [address] [place] [address], [place] [address] 03/19/2014 15:04:03 03/19/2014 15:32:34 [id number] Carolin Gonzalez,CCM A [facility] [address] [place] [address], [place] [address] 05/10/2015 15:37:23 05/11/2015 11:24:05 [id number] Kateryna Isabeljanice [facility] [address] [place] [address] 07/13/2015 15:34:17 07/14/2015 12:42:51 [id number] Barby Rogel MD [facility] [address] [place] [address] 05/15/2016 17:34:06 05/15/2016 19:08:03 [id number] Radha Mcmahon, [facility] [address] [place] [address] 08/18/2016 19:13:26 08/21/2016 03:16:32 [id number] [facility] [address] [place] [address] 08/06/2017 16:20:46 08/06/2017 21:19:04 [id number] [facility] [address] [place] [address] 02/11/2018 16:01:06 02/11/2018 21:36:59 [id number] MD kirstin Montero[facility] [place] [facility] [address] [place] [address] 06/06/2018 16:55:47 06/10/2018 16:39:57 [id number] Poonam Quinn MD [facility] [place] [facility] [address] [place] [address] 06/19/2018 09:21:20 06/19/2018 10:16:22 [id number] [facility] [address] [place] [address] 09/02/2018 16:58:51 09/03/2018 09:16:52 [id number] [facility] [address] [place] [address] 11/12/2018 15:01:58 11/12/2018 18:51:23 [id number] Ashtyn Bolivar, INTERIOR HORTICULTURIST [facility] [address] [place] [address] 11/29/2021 17:04:20 11/30/2021 06:58:32 [id number] Ashtyn Bolivar, ASHTYN [facility] [address] [place] [address] 12/15/2021 12:22:05 12/16/2021 08:34:45 [id number] MD KIRSTIN Villan[facility] [place] [address] [place] [address] 01/11/2022 16:24:26 01/11/2022 17:30:02 [id number] Kai Davis MD [facility] [place] [address] [place] [address] 02/21/2022 10:08:23 02/21/2022 14:16:00 [id number] Ashtyn Bolivar, ASHTYN [facility] [address] [place] [address] 03/06/2022 17:54:38 03/07/2022 23:28:20 [id number] Ashtyn Bolivar, ASHTYN [facility] [address] [place] [address] 05/11/2022 15:06:18 05/12/2022 06:02:02 Health Concerns Section Related Observation LastModified by Organization Detai ls LastModified Time None Recorded Concern Status LastModified by Organization Details LastModified Time None Recorded Advance Directives Directive None Recorded Payers Encounter Date Sequence Insurance Name Policy Number Policy Crawley Covered Member ID Crawley Member ID Guarantor Name 12/19/2010 1 [facility] [place] [employer] (MEDICA[place] HMO) Sangita Umana [id number] Sangita Umana OBGyn Episode No OBEpisode recorded.
--- OUTSIDE RECORDS SUMMARY | 2024-07-24 18:19 | XMS_ITS | Data Portability ---
Author Organization [facility] Address [address] [place] [address] Care Team Providers Care Nutrition Coordinator Name Role Phone MARIA GARCIA OTHER MARY BOLIVAR Primary Care Provider Assessment No assessment recorded. Plan of Treatment Reminders Order Date Submit Date Provider Last Modified By Organization Details Last Modified Time Details Appointments None recorded. Lab None recorded. Referral dermatologi st referral 2022 023 [email or web address] [facility], [address] [facility], [place], [address], 3 15:06:17 cardiologis t referral 2021 022 [facility], [address] [facility], [address], [place], [address], 3 14:31:58 physical therapist referral 2021 022 [facility], [address], [address], [place], [address], 2 10:21:30 Procedures lexiscan cardiolite stress test (PROC) 2021 022 [email or web address] 1 Not available 14:14:52 Surgeries None recorded. Imaging None recorded. Medication Orders Kenalog 40 mg/mL suspension for injection 2022 023 [id number], [address], [place], [place], [id number], 3 16:17:39 methylpredn isolone 4 mg tablets in a dose pack 2021 [facility] #63502, [address], [place], [place], [id number], 18:42:42 Lexiscan 0.4 mg/5 mL intravenous syringe 2021 [email or web address] 1 [facility] #65891, [address], [place], [place], [id number], 10:37:35 mupirocin 2 % topical ointment 2021 [facility] #81039, [address], [place], [place], [id number], 13:03:36 montelukast 10 mg tablet 2021 [facility] #77537, [address], [place], [place], [id number], 13:03:37 ProAir HFA 90 mcg/actuati on aerosol inhaler 2021 [facility] #28740, [address], [place], [place], [id number], 2 13:03:37 duloxetine 60 mg capsule,del ayed release 2021 [facility] #19637, [address], [place], [place], [id number], 2 13:03:38 metoprolol succinate ER 25 mg tablet,exte nded release 24 hr 2021 022 [facility] #27316, [address] [facility], [place], [place], [id number], 13:03:37 Patient TargetsNo targets recorded. Patient Instructions Encounter Date Encounter Id Patient Instructions Last Modified By Organization Details Last Modified Time 03/06/2022 [id number] depression treatment: care instructions [email or web address] Not available 03/06/2022 21:24:17 05/11/2022 [id number] depression treatment: care instructions ctoronto Not available 05/11/2022 20:01:49 coordination of care* - no car - needs assistance for transport for epidural injection - grocery assistance [email or web address] Not available 05/23/2022 18:16:41 Reason for Referral Physical Therapist Referral for Tendinitis of right shoulder Referring Physician: Mary Antoine [facility], Encounter Date: 12/15/2021 Live In Housekeeper Nanny Referral for Ac jaci non-ST segment elevation myocardial infarction Referring Physician: Mary Antoine [facility], Encounter Date: 12/15/2021 Director Of Residence Life Referral for B nehemiah cell carcinoma of skin Referring Physician: Mary Antoine [facility], Encounter Date: 05/11/2022 Results Created Date Observation Date Name Description Value Unit Range Abnormal Flag Note LastModifiedBy Organization Detail LastModifiedTime 12/16/1912/15/2021 COMPL ETE BLOOD COUNT WITH AUTO DIFF white blood cell 8.1 K/uL 4.4-10 .8 Not Available [facility] [place] [address] [place], [address], 12/15/2021 23:05:23 12/16/19 22 12/15/2021 COMPL ETE BLOOD COUNT WITH AUTO DIFF red blood cell 3.99 M/uL 4.02-5 .18 low Not Available [facility] [place] [address] [place], [address], 12/15/2021 23:05:23 12/16/19 22 12/15/2021 COMPL ETE BLOOD COUNT WITH AUTO DIFF hemoglobin 13.1 g/dL 11.5-1 5.5 Not Available [facility] [place] [address], [place], [address], 12/15/2021 23:05:23 12/16/19 22 12/15/2021 COMPL ETE BLOOD COUNT WITH AUTO DIFF hematocrit 39.5 % 36.0-4 8.0 Not Available [facility] [place] [address], [place], [address], 12/15/2021 23:05:23 12/16/19 22 12/15/2021 COMPL ETE BLOOD COUNT WITH AUTO DIFF mean corpuscular volume 99.0 fL 80.0-9 7.0 high Not Available [facility] [place] [address], [place], [address], 12/15/2021 23:05:23 12/16/19 22 12/15/2021 COMPL ETE BLOOD COUNT WITH AUTO DIFF mean corpuscular hemoglobin 32.8 pg 25.8-3 2.9 Not Available [facility] [place] [address], [place], [address], 12/15/2021 23:05:23 12/16/19 22 12/15/2021 COMPL ETE BLOOD COUNT WITH AUTO DIFF mean corpuscular hemoglobin concentratio n 33.2 g/dL 31.0-3 5.0 Not Available [facility] [place] [address], [place], [address], 12/15/2021 23:05:23 12/16/19 22 12/15/2021 COMPL ETE BLOOD COUNT WITH AUTO DIFF red cell distribution width 14.2 % 11.1-1 5.1 Not Available [facility] [place] [address], [place], [address], 12/15/2021 23:05:23 12/16/19 22 12/15/2021 COMPL ETE BLOOD COUNT WITH AUTO DIFF platelets 258 K/uL 140-40 0 Not Available [facility] [place] [address] [facility], [place], [address], 12/15/2021 23:05:23 12/16/19 22 12/15/2021 COMPL ETE BLOOD COUNT WITH AUTO DIFF mean platelet volume 10.3 fL 7.5-14 .0 Not Available [facility] [place] [address] [facility], [place], [address], 12/15/2021 23:05:23 12/16/19 22 12/15/2021 COMPL ETE BLOOD COUNT WITH AUTO DIFF neutrophil, percentage 67.8 % 38.8-7 6.4 Not Available [facility] [place] [address] [facility], [place], [address], 12/15/2021 23:05:23 12/16/19 22 12/15/2021 COMPL ETE BLOOD COUNT WITH AUTO DIFF lymphocyte, percentage 24.1 % 17.8-4 6.6 Not Available [facility] [place] [address], [place], [address], 12/15/2021 23:05:23 12/16/19 22 12/15/2021 COMPL ETE BLOOD COUNT WITH AUTO DIFF monocyte, percentage 4.8 % 3.0-11 .0 Not Available [facility] [place] [address], [place], [address], 12/15/2021 23:05:23 12/16/19 22 12/15/2021 COMPL ETE BLOOD COUNT WITH AUTO DIFF eosinophil, percentage 2.0 % 0.0-6. 0 Not Available [facility] [place] [address] [facility], [place], [address], 12/15/2021 23:05:23 12/16/19 22 12/15/2021 COMPL ETE BLOOD COUNT WITH AUTO DIFF basophil, percentage 0.9 % 0.0-2. 0 Not Available [facility] [place] [address] [facility], [place], [address], 12/15/2021 23:05:23 12/16/19 22 12/15/2021 COMPL ETE BLOOD COUNT WITH AUTO DIFF neutrophil, absolute 5.5 K/uL 1.9-7. 9 Not Available [facility] [place] [address] [facility], [place], [address], 12/15/2021 23:05:23 12/16/19 22 12/15/2021 COMPL ETE BLOOD COUNT WITH AUTO DIFF lymphocyte, absolute 2.0 K/uL 1.0-4. 9 Not Available [facility] [place] [address] [facility], [place], [address], 12/15/2021 23:05:23 12/16/19 22 12/15/2021 COMPL ETE BLOOD COUNT WITH AUTO DIFF monocyte, absolute 0.4 K/uL 0.1-1. 2 Not Available [facility] [place] [address] [place], [address], 12/15/2021 23:05:23 12/16/19 22 12/15/2021 COMPL ETE BLOOD COUNT WITH AUTO DIFF eosinophil, absolute 0.2 K/uL 0.0-0. 7 Not Available [facility] [place] [address] [place], [address], 12/15/2021 23:05:23 12/16/19 22 12/15/2021 COMPL ETE BLOOD COUNT WITH AUTO DIFF basophil, absolute 0.1 K/uL 0.0-0. 2 Not Available [facility] [place] [address] [place], [address], 12/15/2021 23:05:23 12/16/19 22 12/15/2021 COMPL ETE BLOOD COUNT WITH AUTO DIFF immature granulocytes % 0.4 % 0.0-3. 0 Not Available [facility] [place] [address] [place], [address], 12/15/2021 23:05:23 12/16/19 22 12/15/2021 COMPL ETE BLOOD COUNT WITH AUTO DIFF immature granulocytes # 0.0 K/uL 0.0-0. 3 Not Available [facility] [place] [address] [place], [address], 12/15/2021 23:05:23 12/16/19 22 12/15/2021 COMPL ETE BLOOD COUNT WITH AUTO DIFF nucleated red blood cell % 0.0 % 0.0-0. 0 Not Available [facility] [place] [address] [place], [address], 12/15/2021 23:05:23 12/16/19 22 12/15/2021 COMPL ETE BLOOD COUNT WITH AUTO DIFF nucleated red blood cell # 0.0 K/uL 0.0-0. 0 Not Available [facility] [place] [address] [place], [address], 12/15/2021 23:05:23 12/16/19 22 12/15/2021 CREAT INE KINAS E creatine kinase 78 U/L 25-160 Not Available [facility] [place] [address] [place], [address], 12/15/2021 23:05:24 12/16/19 22 12/15/2021 COMPR EHENS ANDRIY METAB OLIC PANEL W/EGF R (14) glucose, random 152 mg/dL 70-100 high Not Available [facility] [place] [address], [place], [address], 12/15/2021 23:05:24 12/16/19 22 12/15/2021 COMPR EHENS ANDRIY METAB OLIC PANEL W/EGF R (14) BUN 34 mg/dL 8-25 high Not Available [facility] [place] [address], [place], [address], 12/15/2021 23:05:24 12/16/19 22 12/15/2021 COMPR EHENS ANDRIY METAB OLIC PANEL W/EGF R (14) creatinine 1.1 mg/dL 0.6-1. 4 For patie nts >49 years of age, the refer ence limit for Creat inine is appro ximat tessa 13% highe r for peopl e ident ified as Afric an-Am lorraine n. Not Available [facility] [place] [address], [place], [address], 12/15/2021 23:05:24 12/16/19 22 12/15/2021 COMPR EHENS [...] on CKD. Not Available [facility] [place] [address], [place], [address], 12/15/2021 23:05:24 12/16/19 22 12/15/2021 COMPR EHENS [...] on CKD. Not Available [facility] [place] [address] [place], [address], 12/15/2021 23:05:24 12/16/19 22 12/15/2021 COMPR EHENS ANDRIY METAB OLIC PANEL W/EGF R (14) BUN/creat ratio 31 ratio 10-28 high Not Available [facility] [place] [address] [place], [address], 12/15/2021 23:05:24 12/16/19 22 12/15/2021 COMPR EHENS ANDRIY METAB OLIC PANEL W/EGF R (14) bilirubin, total 0.4 mg/dL 0.2-1. 3 Not Available [facility] [place] [address] [place], [address], 12/15/2021 23:05:24 12/16/19 22 12/15/2021 COMPR EHENS ANDRIY METAB OLIC PANEL W/EGF R (14) AST (SGOT) 53 U/L 14-36 high Not Available [facility] [place] [address] [place], [address], 12/15/2021 23:05:24 12/16/19 22 12/15/2021 COMPR EHENS ANDRIY METAB OLIC PANEL W/EGF R (14) ALT (SGPT) 83 U/L 7-41 high Not Available [facility] [place] [address] [place], [address], 12/15/2021 23:05:24 12/16/19 22 12/15/2021 COMPR EHENS ANDRIY METAB OLIC PANEL W/EGF R (14) alkaline phosphatase 66 U/L 40-135 Not Available [facility] [place] [address] [place], [address], 12/15/2021 23:05:24 12/16/19 22 12/15/2021 COMPR EHENS ANDRIY METAB OLIC PANEL W/EGF R (14) calcium 9.1 mg/dL 8.4-10 .2 Not Available [facility] [place] [address] [place], [address], 12/15/2021 23:05:24 12/16/19 22 12/15/2021 COMPR EHENS ANDRIY METAB OLIC PANEL W/EGF R (14) sodium 137 mmol/ L 134-14 4 Not Available [facility] [place] [address] [place], [address], 12/15/2021 23:05:24 12/16/19 22 12/15/2021 COMPR EHENS ANDRIY METAB OLIC PANEL W/EGF R (14) potassium 4.2 mmol/ L 3.5-5. 2 Not Available [facility] [place] [address] [place], [address], 12/15/2021 23:05:24 12/16/19 22 12/15/2021 COMPR EHENS ANDRIY METAB OLIC PANEL W/EGF R (14) chloride 105 mmol/ L 96-110 Not Available [facility] [place] [address] [place], [address], 12/15/2021 23:05:24 12/16/19 22 12/15/2021 COMPR EHENS ANDRIY METAB OLIC PANEL W/EGF R (14) CO2 23 mmol/ L 22-30 Not Available [facility] [place] [address] [place], [address], 12/15/2021 23:05:24 12/16/19 22 12/15/2021 COMPR EHENS ANDRIY METAB OLIC PANEL W/EGF R (14) total protein 6.9 g/dL 6.3-8. 2 Not Available [facility] [place] [address] [place], [address], 12/15/2021 23:05:24 12/16/19 22 12/15/2021 COMPR EHENS ANDRIY METAB OLIC PANEL W/EGF R (14) albumin 4.4 g/dL 3.5-5. 0 Not Available [facility] [place] [address] [place], [address], 12/15/2021 23:05:24 12/16/19 22 12/15/2021 COMPR EHENS ANDRIY METAB OLIC PANEL W/EGF R (14) globulin 2.5 g/dL 2.0-3. 7 Not Available [facility] [place] [address] [place], [address], 12/15/2021 23:05:24 12/16/19 22 12/15/2021 COMPR EHENS ANDRIY METAB OLIC PANEL W/EGF R (14) albumin/glob ulin 1.8 ratio 1.0-2. 4 Not Available [facility] [place] [address] [place], [address], 12/15/2021 23:05:24 12/16/19 22 12/15/2021 COMPR EHENS ANDRIY METAB OLIC PANEL W/EGF R (14) anion gap 8 ratio 4-18 Not Available [facility] [place] [address] [place], [address], 12/15/2021 23:05:24 12/16/19 22 12/15/2021 TSH RFLX TO FREE T4 TSH 1.08 mIU/L 0.45-4 .50 Not Available [facility] [place] [address] [facility] [place] [facility], [place], [address], 12/15/2021 23:05:25 12/16/19 22 12/15/2021 URINA LYSIS WITH MICRO SCOPI C REFLX CULTU RE urine color LIGHT- YELLOW yellow abnormal Not Available [facility] [place] [address], [place], [address], 12/15/2021 23:05:26 12/16/19 22 12/15/2021 URINA LYSIS WITH MICRO SCOPI C REFLX CULTU RE urine clarity CLEAR clear Not Available [facility] [place] [address] [facility] [place] [facility], [place], [address], 12/15/2021 23:05:26 12/16/19 22 12/15/2021 URINA LYSIS WITH MICRO SCOPI C REFLX CULTU RE urine glucose NEGATI VE negati ve Not Available [facility] [place] [address] [facility] [place] [facility], [place], [address], 12/15/2021 23:05:26 12/16/19 22 12/15/2021 URINA LYSIS WITH MICRO SCOPI C REFLX CULTU RE urine ketones NEGATI VE negati ve Not Available [facility] [place] [address] [facility] [place] [facility], [place], [address], 12/15/2021 23:05:26 12/16/19 22 12/15/2021 URINA LYSIS WITH MICRO SCOPI C REFLX CULTU RE urine bilirubin NEGATI VE negati ve Not Available [facility] [place] [address] [facility] [place] [facility], [place], [address], 12/15/2021 23:05:26 12/16/19 22 12/15/2021 URINA LYSIS WITH MICRO SCOPI C REFLX CULTU RE urine specific gravity 1.011 1.005- 1.030 Not Available [facility] [place] [address] [facility] [place] [facility], [place], [address], 12/15/2021 23:05:26 12/16/19 22 12/15/2021 URINA LYSIS WITH MICRO SCOPI C REFLX CULTU RE urine pH 5.5 5.0-7. 0 Not Available [facility] [place] [address], [place], [address], 12/15/2021 23:05:26 12/16/19 22 12/15/2021 URINA LYSIS WITH MICRO SCOPI C REFLX CULTU RE urine hemoglobin TRACE negati ve abnormal Not Available [facility] [place] [address], [place], [address], 12/15/2021 23:05:26 12/16/19 22 12/15/2021 URINA LYSIS WITH MICRO SCOPI C REFLX CULTU RE urine protein NEGATI VE negati ve Not Available [facility] [place] [address], [place], [address], 12/15/2021 23:05:26 12/16/19 22 12/15/2021 URINA LYSIS WITH MICRO SCOPI C REFLX CULTU RE urine urobilinogen NORMAL mg/dL normal Not Available [facility] [place] [address], [place], [address], 12/15/2021 23:05:26 12/16/19 22 12/15/2021 URINA LYSIS WITH MICRO SCOPI C REFLX CULTU RE urine nitrate NEGATI VE negati ve Not Available [facility] [place] [address], [place], [address], 12/15/2021 23:05:26 12/16/19 22 12/15/2021 URINA LYSIS WITH MICRO SCOPI C REFLX CULTU RE urine leukocyte esterase NEGATI VE chris/u L negati ve Not Available [facility] [place] [address] [facility], [place], [address], 12/15/2021 23:05:26 12/16/19 22 12/15/2021 URINA LYSIS WITH MICRO SCOPI C REFLX CULTU RE urine white blood cells <6 /hpf <6 Not Available [facility] [place] [address] [facility], [place], [address], 12/15/2021 23:05:26 12/16/19 22 12/15/2021 URINA LYSIS WITH MICRO SCOPI C REFLX CULTU RE urine red blood cells <5 /hpf <5 Not Available [facility] [place] [address] [facility], [place], [address], 12/15/2021 23:05:26 12/16/19 22 12/15/2021 URINA LYSIS WITH MICRO SCOPI C REFLX CULTU RE urine bacteria NEGATI VE /hpf negati ve Not Available [facility] [place] [address] [facility], [place], [address], 12/15/2021 23:05:26 12/16/19 22 12/15/2021 URINA LYSIS WITH MICRO SCOPI C REFLX CULTU RE urine squamous epithelial cells FEW /hpf few Not Available [facility] [place] [address] [facility], [place], [address], 12/15/2021 23:05:26 12/16/19 22 12/15/2021 MICRO ALBUM IN/CR EATIN INE RATIO , RANDO M albumin, urine <3.0 Noah ified by qasim black sheila sis Not Available [address], [address], 12/16/2021 16:11:33 12/16/19 22 12/15/2021 MICRO ALBUM IN/CR EATIN INE RATIO , RANDO M alb/creat ratio <7 Tena l: 0 - 29 Moder ately incre ased: 30 - 300 Sever tessa incre ased: >300 Not Available [facility] [address] [place], [address], 12/16/2021 16:11:33 12/16/19 22 12/16/2021 MICRO ALBUM IN/CR EATIN INE RATIO , RANDO M creatinine, urine 43.7 mg/dL not estab. normal Not Available [facility] [address] [place], [address], 12/16/2021 16:11:33 01/10/20 22 11/08/2021 US, echoc ardio gram, trans thora cic, compl ete, w/ color flow No observ ation record ed. [email or web address] Not Available 01/09 12:25:18 01/10/20 22 11/07/2021 CT, chest , w/ contr ast No observ ation record ed. [email or web address] Not Available 01/09 12:26:35 01/10/20 22 11/08/2021 elect rocar diogr am No observ ation record ed. [email or web address] Not Available 01/09 13:04:25 02/28/20 22 02/21/2022 [...] Time Mixed anxiety and depressiv e disorder 208952576 Active APRIL DyerP [address], [place], [address] , [facility] 6 23:05:09 Degenerat ion of lumbar intervert ebral disc 87302610 Active Mary Bolivar [facility] [address], [place], [address] , [facility] 6 23:05:09 Cigarette smoker 11686060 Active APRIL DyerP [address], [place], [address] , [facility] 6 23:05:09 Degenerat ion of lumbosacr al intervert ebral disc 77999292 Active Mary Bolivar [facility] [address], [place], [address] , [facility] 6 23:05:09 Increased frequency of urination 430321822 Active 2017 Mary Bolivar [facility] [address], [place], [address] , [facility] 8 17:30:33 Visual disturban ce 72837558 Active 2017 Mary Bolivar [facility] [address], [place], [address] , [facility] 8 17:35:59 Mild memory disturban ce 345161553 Active 2017 Mary Bolivar [facility] [address], [place], [address] , [facility] 8 20:54:57 Long-term current use of opiate analgesic drug 45403000056 4108 Active 2017 Mary Bolivar [facility] [address], [place], [address] , [facility] 8 21:00:28 Overweigh t 128925702 Active 2017 Mary Bolivar, [employer] [address], [place], [address] , [place] [facility] 8 17:16:33 History of hepatitis C 30293347879 101 Active 2017 APRIL DyerP [address], [place], [address] , [facility] 8 17:18:05 Malaise and fatigue 083782854 Active 2017 APRIL DyerP [address], [place], [address] , [facility] 8 17:19:09 Intermitt ent palpitati ons 508081353 Active 2017 APRIL DyerP [address], [place], [address] , [facility] 8 17:39:53 Blood glucose outside reference range 863485525 Active 2018 APRIL DyerP [address], [place], [address] , [facility] 9 18:44:22 Spinal stenosis in cervical region 78675394 Active 2018 Mary Bolivar [employer] [address], [place], [address] , [facility] - [facility] 9 15:58:06 Lumbar post-lami nectomy syndrome 302084651 Active 2018 Mary Bolivar [employer] [address], [place], [address] , [facility] - [facility] 9 16:04:11 Palpitati ons 00022381 Active 2017 Not Available [facility] 0 10:47:05 Acute injury of kidney [id number] 738073 Active 2021 APRIL DyerP [address], [place], [address] , [facility] 2 17:55:57 Rhabdomyo lysis 149837582 Active 2021 [facility], [employer] [address], [place], [address] , [facility] 2 17:56:19 Acute non-ST segment elevation myocardia l infarctio n 617120692 Active 2021 Mary Antoine, [employer] [address], [place], [address] , [facility] 2 18:04:07 Body mass index 20-24 - normal 239846973 Active 2021 Mary Bolivar, [employer] [address], [place], [address] , [facility] 2 22:02:51 Tendiniti s of right shoulder 85657295254 34947 Active 2021 Mary Antoine, [employer] [address], [place], [address] , [facility] 2 12:45:33 Superfici al injury of foot without infection 48898789 Active 2021 [facility], [employer] [address], [place], [address] , [facility] 2 12:51:42 Infection of skin 540793238 Active 2021 Mary Antoine, [employer] [address], [place], [address] , [facility] 2 12:56:57 Liver enzymes level above reference range 096541825 Active 2021 [facility], [employer] [address], [place], [address] , [facility] 2 16:01:49 Celluliti s of foot 894674190 Active 2021 [facility], [employer] [address], [place], [address] , [facility] 2 22:38:23 Headache 47937017 Active 2021 Mary Bolivar, [employer] [address], [place], [address] , [facility] - [facility] 2 23:51:23 Liver function tests outside reference range 836261740 Active 2021 Mary Bolivar [employer] [address], [place], [address] , [facility] 2 18:25:35 Lumbar radiculop athy 476685027 Active 2021 Mary Bolivar [employer] [employer] [address], [place], [address] , [facility] 2 15:21:10 Basal cell carcinoma of skin 960180890 Active 2022 APRIL DyerP [address], [place], [address] , [facility] 3 15:35:25 Lumbago with sciatica 675146706 Active 2022 Mary Bolivar, CONTACT CENTER TEAM LEAD [address], [place], [address] , [facility] 3 15:47:59 Finding of hand region 704726011 Completed 05/10/2015 Mary Bolivar CONTACT CENTER TEAM LEAD [address], [place], [address] , [facility] 6 23:05:09 Gastroeso phageal reflux disease 677339426 Active Mary Bolivar [facility]TA[facility] C[facility] TEAM LEAD [address], [place], [address] , [facility] 6 23:05:09 Chronic pain syndrome 900339239 Active Mary Bolivar [facility]TACT CENTER TEAM LEAD [address], [place], [address] , [facility] 6 23:05:09 Cough 99684370 Completed 08/06/2017 Mary Bolivar, CONTACT CENTER TEAM LEAD [address], [place], [address] , [facility] 8 17:19:04 Menopausa l symptom 56625988 Active [facility], CONTACT CENTER TEAM LEAD [address], [place], [address] , [facility] 6 23:05:09 Benign essential hypertens ion 2231675 [facility], CONTACT CENTER TEAM LEAD [address], [place], [address] , [facility] 6 23:05:09 Benign essential hypertens ion 4117993 Completed 05/10/2010 [facility], CONTACT CENTER TEAM LEAD [address], [place], [address] , [facility] 6 23:05:09 Acute hepatitis C 113865232 Completed 02/11/2018 [facility], CONTACT CENTER TEAM LEAD [address], [place], [address] , [facility] 8 17:17:48 Feeling nervous 834025767 [facility], CONTACT CENTER TEAM LEAD [address], [place], [address] , [facility] 6 23:05:09 Degenerat andriy joint disease involving multiple joints 265676877 [facility], CONTACT CENTER TEAM LEAD [address], [place], [address] , [facility] 6 23:05:09 Depressiv e disorder 46489681 [facility], CONTACT CENTER TEAM LEAD [address], [place], [address] , [facility] 6 23:05:09 Closed fracture of phalanx of foot 86804092 [facility], CONTACT CENTER TEAM LEAD [address], [place], [address] , [facility] 6 23:05:09 Tobacco dependenc e syndrome 95498533 Completed 08/06/2017 Mary Antoine, CONTACT CENTER TEAM LEAD [address], [place], [address] , [facility] 8 17:22:06 Shoulder joint pain 250072884 Active Mary Bolivar CONTACT CENTER TEAM LEAD [address], [place], [address] , [facility] 6 23:05:09 Carpal tunnel syndrome 30469605 Active Mary Antoine, CONTACT CENTER TEAM LEAD [address], [place], [address] , [facility] 6 23:05:09 Obesity 668374910 Active Mary Antoine CONTACT CENTER TEAM LEAD [address], [place], [address] , [facility] 6 23:05:09 Osteopeni a 833424728 Active Mary Antoine [facility] [address], [place], [address] , [facility] 6 23:05:09 Low back pain 833377672 Completed 08/06/2017 Mary Antoine [facility] [address], [place], [address] , [facility] 8 20:57:40 Asthma 968146897 Active Mary Antoine [facility] [address], [place], [address] , [facility] 6 23:05:09 Problem Notes None recorded. Procedures Surgical History Date Name Laterality Status Provider Name and Address Organization Details Recorded Time 02/22/20 22 Stress MPI INITIAL - Lexiscan (IAC) completed Rebecca Matthew [facility] 02/21/2022 14:09:56 02/22/20 22 Stress MPI RESULT - Normal (IAC) [place] [address], [place], [address], [facility] 02/27/2022 10:37:33 12/30/19 21 Knee Replacement completed Mary Bolivar, CONTACT CENTER TEAM LEAD [address], [place], [address], [facility] 11/29/2021 17:59:04 08/07/19 18 PCM Nicotine SMOKING completed Pascaledaniel Chu [facility] 08/06/2017 16:48:59 08/19/19 17 PCMH Nicotine SMOKING completed SUNG Marsh [facility] 08/18/2016 19:24:27 05/15/19 17 PCM Nicotine SMOKING completed Rakan Chase [facility] 05/15/2016 18:20:54 05/15/19 17 [facility] Depression Screening PHQ9 completed Rakan Chase [facility] 05/15/2016 18:20:44 04/30/19 10 Other (Please specify) completed Not Available [facility] 03/23/2011 02:44:30 04/30/19 09 Hip Surgery completed Not Available [facility] 03/23/2011 02:44:30 04/30/19 00 Tubal Ligation completed Not Available [facility] 03/23/2011 02:44:30 04/30/18 99 Cholecystectomy completed Not Available [facility] 03/23/2011 02:44:30 Gallbladder Surgery completed Alla Mccabe [facility] 01/11/2022 16:28:45 Back Surgery completed Alla Mccabe [facility] 01/11/2022 16:28:45 Joint Replacement completed Chula Mccabe [facility] 01/11/2022 16:28:45 Spine Surgery (Cervical, Thoracic, Lumbar) completed Alla Mccabe [facility] 01/11/2022 16:28:45 Section completed Mary Bolivar, CONTACT CENTER TEAM LEAD [address], [place], [address], [facility] 03/06/2022 18:43:29 Breast Surgery (Lumpectomy, Biopsy, Implants) completed Mary Bolivar, CONTACT CENTER TEAM LEAD [address], [place], [address], [facility] 03/06/2022 18:43:29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
== END 2024-07-24 15:25 | disposition home or self-care (01) ==
LOC: HO.HGI 14:37
PROVIDERS: PCP Nurse Practitioner Family; Visit Provider Nurse Practitioner
DX: K91.5 Postcholecystectomy syndrome (principal); R19.7 Diarrhea, unspecified
CPT/HCPCS: 99213

== ENCOUNTER → 2024-07-24 14:36 | Outpatient (BNVA) | payer OTHER, SELFPAY | PROVIDERS: PCP Nurse Practitioner Family; Visit Provider Nurse Practitioner | DX: K91.5 Postcholecystectomy syndrome (principal); R19.7 Diarrhea, unspecified | CPT/HCPCS: 99212 ==

== ENCOUNTER 2024-07-25 14:40 | Outpatient (REF) | payer OTHER, SELFPAY ==
--- NOTE | ~2024-07-25 | CT_ITS ---
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 Grade 1 anterolisthesis of L3 on L4. Bilateral L3-L4 pars interarticularis defects. Mild chronic appearing L2 and L1 wedging. Laminectomy at L2- L5. No acute fractures or dislocations. Multilevel disc space narrowing and endplate osteophyte formation, as well as facet hypertrophy. Severe right renal atrophy. IMPRESSION: 1. No acute process. 2. Grade 1 isthmic spondylolisthesis at L3-L4. 3. Multilevel degenerative disc and facet disease. 4. Right renal atrophy. This document has been electronically signed by: Jaye Granado MD on 07/28/2024 15:01:47
== END 2024-07-25 14:41 | disposition home or self-care (01) ==
LOC: HO.CT 14:40
PROVIDERS: PCP Student in an Organized Health Care Education/Training Program; Visit Provider Neurological Surgery
DX: M48.062 Spinal stenosis, lumbar region with neurogenic claudication (principal); M41.56 Other secondary scoliosis, lumbar region
CPT/HCPCS: 72131

== ENCOUNTER → 2024-07-25 14:43 | Outpatient (BNV) | payer OTHER, SELFPAY | PROVIDERS: PCP Student in an Organized Health Care Education/Training Program; Visit Provider Radiology Diagnostic Radiology | DX: M48.062 Spinal stenosis, lumbar region with neurogenic claudication (principal) | CPT/HCPCS: 72131 ==

== ENCOUNTER 2024-08-04 13:16 | Outpatient (AMB) | payer OTHER, SELFPAY ==
[2024-08-04 13:22] VITALS: BP 130/68; PULSE 67; O2SAT 97; BMI 27.2
--- NOTE | 2024-08-04 13:22 | MHC.OFFVIS ---
Vital Signs 08/04/24 13:22 Height 4 ft 10 in Weight 130 lb 1.164 oz BMI 27.2 BP 130/68 Blood Pressure Location Lt brachial Position Sitting Pulse 67 Pulse Source Pulse Oximeter Pulse Oximetry (%) 97 Oxygen Delivery Method Room Air Intake Visit Reasons: Discuss med options Intake Note: Patients presents today to discuss medication. Pt states thats she needs a letter stating thats he is disable and needs a first floor apartment. Accompanied by: Self / Same As Patient Allergies NSAIDS (Non-Steroidal Anti-Inflamma Adverse Reaction (Mild, Verified 08/04/24 13:28) contraindicated w/ CKD HPI Comments Details: 69 YO Female with is seen in consultation at the request of PCP for Osteoporosis. First diagnosed in just diagnosed . Not Received treatment in the past No history of pathologic fracture or ONJ. Has several servings of dietary calcium per day in the form of cheese . Takes Calcium supplement ? mg daily in divided doses. Takes ? IU of Vitamin D daily. Denies ever using PPI, anticoagulant, antiepileptic but does take glucocorticoid medication. Not Does weight bearing exercise Fracture history: No Height loss: Yes USER INTERFACE ARTIST history: Menarche at age 14 - menopause at age 57 Has history of Kidney stones: Denies family history of grandmother Osteoporosis or hip fracture. Not UTD on dental cleanings and sees dentist every 6 months. Has planned upcoming dental work or extractions in near future . DXA dated 12/11/23:FINDINGS: RIGHT FEMUR, NECK: BMD 0.605 g/cm2, Z-score -1.3, T-score -3.1, osteoporosis. RIGHT FEMUR, TOTAL: BMD 0.523 g/cm2, Z-score -2.3, T-score -3.8, osteoporosis. AP SPINE L1-L3 (excluding L4): The data of L1-L4 has been changed to exclude the L4 vertebral body, because degenerative sclerosis at this level may cause overestimation of lumbar spine density. BMD 1.128 g/cm2, Z-score 1.7, T-score -0.4, normal. IDENTIFIED RISK FACTORS: Menopause, height loss, osteoporosis, renal, tobacco use (current smoker), secondary osteoporosis (chronic liver disease). HISTORY OF FRACTURE: None listed. MEDICATIONS: Calcium, vitamin D. MM/XR DEXA axial skeleton IMPRESSION: 1. DIAGNOSIS: Osteoporosis based on the lowest T-score value of -3.8 in the total femur applying World Health Organization criteria. Labs: Secondary workup was negative The patient is a 69-year-old female presenting for follow-up regarding osteoporosis management. Recent T-score of -3.8 underscores high fracture risk. Patient has chronic kidney disease Stage 3B, limiting treatment options for osteoporosis. Supplementation includes calcium, vitamin D, and magnesium. The patient denies any recent fractures. Osteoarthritis history necessitated bilateral hip replacements due to significant degeneration. Analgesic options are limited by chronic kidney disease. Evenity was denied by the insurance company with a step through of Tymlos. However patient has CKD stage IIIB and is not a candidate for Tymlos or Forteo as anabolic PFSH Medical History Encounter for general adult medical examination without abnormal findings Liver disease Polyarthralgia Lumbar degenerative disc disease ISSAC (generalized anxiety disorder) HTN (hypertension) Chronic back pain Renal stones Surgical History History of left knee replacement History of left hip replacement Hx of section S/P cholecystectomy H/O laminectomy Family History Mother Colitis Maternal Uncle Cancer Family/Other Cancer Social History Household Members: Other Household Members Other:: Roommate x1 Housing: Other Housing Other:: Roommate 75 years or older and lives alone: No Alcohol intake: former 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 Patient Tobacco Use Status: Current everyday Tobacco user Tobacco use type: Cigarette Cigarettes Per Day: 6 Years Smoked: 40 e-Cigarette/Vaping Use: Currently Using Substance Use Type: Marijuana service: No Current occupational status: disabled Current occupational exposures/hazards: No Sexual orientation: Straight/Heterosexual Gender identity: Female Cognitive needs: No Hearing needs: No Vision needs: Yes Assessment & Plan Assessment & Plan (1) Osteoporosis: Code(s): M81.0 - Age-related osteoporosis without current pathological fracture Category: Medical Plan: This is a 68-year-old white female with a history of osteoporosis moderate to severe in the setting of CKD stage 3 B. Secondary workup is negative Plan is to discuss an anabolic agent like Evenity Would not use an anti resorptive agent initially because alkaline phosphatase and PTH are low normal which could suggest the possibility of adynamic bone. 1. Osteoporosis: Osteoporosis management is crucial due to the T-score of -3.8. Plan includes utilizing Evenity, pending insurance approval. Alternatives are potential self-injections like Tymlos or Forteo subsequent treatment with which are less preferred by the patient. 2. Chronic Kidney Disease Stage 3B: Monitor kidney function as limits osteoporosis treatment options. The only anabolic or osteoporosis agent that is indicated in this patient with CKD stage IIIB and very low bone density is the anabolic agent Evenity which can be followed then by Prolia. Forteo and Tymlos or contraindicated as are anti resorptive agents initially like Prolia I discussed with the patient the critical condition of her osteoporosis and the necessity of further strengthening bones to prevent fractures. Options include Evenity, an injection approved for chronic kidney disease, followed by Prolia I emphasized the high osteoporosis risk given low bone density, necessitating an appeal to her insurer based on her CKD and bone evaluation. Alternatives were explored, considering patient aversion to daily self-injection due to needle discomfort. I addressed dietary improvements, advocating for lactate supplements, ensuring dietary calcium. We will follow up for prescription approval and therapy plane re-evaluation based on insurer response. - Take calcium and vitamin D supplements as prescribed. - Ensure intake of calcium-rich foods within dietary restrictions. - Engage with insurance regarding coverage for recommended therapies. - Follow up in four months for assessment and therapy outcomes. - Maintain communication about any new symptoms or treatment effects. - Consult your primary care provider or painter railroad car for options related to osteoarthritis or chronic pain relief. T . The patient had an opportunity to ask questions regarding treatment plan. The patient expressed understanding and agreement with the above treatment plan. Patient was informed and verbally consented to the use of an ambient scribe for clinic note documentation during this visit. Coding Level of Care Code Est Pt Level 3 (05675) Diagnoses Osteoporosis M81.0
--- OUTSIDE RECORDS SUMMARY | 2024-08-04 15:46 | XMS_ITS | Data Portability ---
Author Organization [place] - [facility], autoContract - [facility] Address [address] [place] [address] Care Team Providers Care Operator Prefinish Name Role Phone REBECCA ESCALONA OTHER [phone] MARIA GARCIA OTHER Assessment No assessment recorded. [...] By Organization Details Last Modified Time 06/06/2018 [id number] deciding about using medicines to quit smoking [...] telem etry No observ ation record ed. [employer] [address], [place], [address], 06/28/2018 17:37:34 06/24/19 19 [place], echoc ardio gram No observ ation record ed. BARCODE Not Available 2018 18:52:06 Result Notes None recorded. Problems Name Problem SNOMED Code Status Onset Date Resolution Date Notes Provider Name and Address Organization Details Recorded Time Palpitati ons 09056991 Active 2017 Sena Kurt, RMA null, [facility] 8 12:57:03 Obesity 323788282 Active Sena Kurt, RMA null, [facility] 8 12:57:03 Degenerat ion of lumbar intervert ebral disc 87864631 Completed 03/14/2018 Sena Kurt, RMA null, [facility] 8 12:58:14 Visual disturban ce 62008809 Completed 201703/14/2018 Sena Kurt, RMA null, [facility] 8 12:57:44 Degenerat anita joint disease involving multiple joints 568817261 Completed 03/14/2018 Sena Kurt, RMA null, [facility] 8 12:58:34 Intermitt ent palpitati ons 952116477 Active 2017 Sena Kurt, RMA null, [facility] 8 12:57:03 Depressiv e disorder 67737660 Active Sena Kurt, RMA null, [facility] 8 12:57:03 Chronic pain syndrome 164184124 Completed 03/14/2018 Sena Kurt, RMA null, [facility] 8 12:58:43 Mild memory disturban ce 869376659 Completed 201703/14/2018 Sena Kurt, RMA null, [facility] 8 12:58:23 Increased frequency of urination 791335096 Completed 201703/14/2018 Sena Kurt, RMA null, [facility] 8 12:58:27 Carpal tunnel syndrome 59463057 Active Sena Kurt RMA null, [facility] 8 12:57:03 Long-term current use of opiate analgesic drug 446337270445 108 Active 2017 Sena Kurt, RMA null, [facility] 8 12:57:03 Asthma 762000884 Completed 03/14/2018 Sena Kurt, RMA null, [facility] 8 12:58:31 Mixed anxiety and depressiv e disorder 141167767 Completed 03/14/2018 Sena Kurt, RMA null, [facility] 8 12:58:37 Benign essential hypertens ion 9752445 Active Sena Kurt, RMA null, [facility] 8 12:57:03 Shoulder joint pain 611266815 Completed 03/14/2018 Sena Kurt, RMA null, [facility] 8 12:58:47 Cigarette smoker 93785606 Active Sena Kurt, RMA null, [facility] 8 12:57:03 Closed fracture of phalanx of foot 45168909 Completed 03/14/2018 Sena Kurt, RMA null, [facility] 8 12:57:39 Feeling nervous 031711924 Completed 03/14/2018 Sena Kurt, RMA null, [facility] 8 12:57:57 Osteopeni a 967275791 Completed 03/14/2018 Sena Kurt, RMA null, [facility] 8 12:58:01 Overweigh t 629639927 Completed 201703/14/2018 Sena Kurt, RMA null, [facility] 8 12:58:11 Degenerat ion of lumbosacr al intervert ebral disc 69195330 Completed 03/14/2018 Sena Hicks RMA null, [facility] 8 12:57:48 Gastroeso phageal reflux disease 826981479 Active Sena Hicks RMA null, [facility] 8 12:57:03 Menopausa l symptom 18092217 Completed 03/14/2018 Sena Hicks RMA null, [facility] 8 12:58:18 History of hepatitis C 890225893992 Completed 201703/14/2018 Sena Kurt RMA null, [facility] 8 12:57:36 Malaise and fatigue 396538700 Completed 201703/14/2018 Sena Kurt RMA null, [facility] 8 12:58:05 Problem Notes None recorded. Procedures Surgical History Date Name Laterality Status Provider Name and Address Organization Details Recorded Time 06/19/19 19 Echocardiogram completed Nida Reyes [facility] 06/24/2018 17:47:42 Other completed Sena Hicks, ARVINDA [facility] 02/18/2018 10:05:38 Other completed Sena Kurt, ARVINDA [facility] 02/18/2018 10:05:58 Other completed Sena Hicks, RMA [facility] 02/18/2018 10:06:10 Cholecystectomy w/cholang completed Sena Hicks, ARVIDNA [facility] 02/18/2018 10:06:30 Tubal Ligation completed ARVIND TapiaA [facility] 02/18/2018 14:35:35 Imaging Results Imaging Date Name Status LastModified by Organization Details LastModified Time 06/06/2018 electrocardiogram completed Informa tion not available 06/06/2018 18:44:44 06/19/2018 US, echocardiogram completed [facility] Inform ation not available 06/19/2018 10:19:56 06/19/2018 cardiac telemetry completed [facility] [address], [place], [address], 06/28/2018 17:37:34 06/24/2018 US, echocardiogram completed [facility] [...] Updated DateTime 9 152.4 cm 27.7 kg/m2 99321.1 2 g 70 /min 98 % 98 % 122 mm[Hg] 80 mm[Hg] Yohana Song [facility] 9 17:16:31 Social History Question Answer Notes LastModified by Organizat [employer] Details LastModified Time Tobacco Smoking Status Current Every Day Smoker Sena Hicks, SUNG juwan, [facility] 02/18/2018 10:04:50 Do You Have An [...] Status Question Answer Note LastModified by Organizat [employer] Details LastModified Time What is your exercise [...] SNOMED-CT Code Diagnosis ICD10 Code Diagnosis Note [id number] [facility] [address] [facility] [place] [address] 05/05/2010 18:12:34 05/05/2010 19:18:30 [id number] Amaya Bullek (Elenita) [facility] [address] [facility] [address] 05/10/2010 17:06:55 05/10/2010 18:50:11 [id number] [facility] [address] [facility] [place] [address] 05/31/2010 18:17:55 05/31/2010 19:23:28 [id number] [facility] [address] [facility] [place] [address] 10/04/2010 17:25:28 10/04/2010 18:04:57 [id number] Amaya Babatunde (Elenita) [facility] [address] [facility] [place] [address] 10/26/2010 15:30:56 10/26/2010 16:47:04 [id number] [facility] [address] [facility] [place] [address] 12/19/2010 19:34:25 12/19/2010 20:13:27 [id number] [facility] [address] [facility] [place] [address] 03/17/2011 14:44:01 03/17/2011 15:31:54 [id number] [facility] [address] [facility] [place] [address] 06/01/2011 12:28:37 06/01/2011 13:54:09 [id number] Amaya Fronek (Elenita) [facility] [address] [facility] [place] [address] 07/18/2012 19:08:12 07/19/2012 13:17:25 [id number] Amaya Fronek (Elenita) [facility] [address] [facility] [place] [address] 05/22/2013 16:22:52 05/23/2013 10:09:02 [id number] [facility] [address] [facility] [place] [address] 12/15/2013 18:32:26 12/15/2013 19:40:41 [id number] Essence Knowles, DO [facility] [address] [facility] [place] [address] 01/02/2014 10:53:17 01/02/2014 15:51:25 [id number] Bess Oh [facility] [address] [facility] [place] [address] 03/19/2014 15:04:03 03/19/2014 15:32:34 [id number] Carolin Gonzalez CCM A [facility] [address] [facility] [place] [address] 05/10/2015 15:37:23 05/11/2015 11:24:05 [id number] Kateryna Loredo [facility] [address] [facility] [place] [address] 07/13/2015 15:34:17 07/14/2015 12:42:51 [id number] Barby Rogel MD [facility] [address] [facility] [place] [address] 05/15/2016 17:34:06 05/15/2016 19:08:03 [id number] Radha Mcmahon, DO [facility] [address] [facility] [place] [address] 08/18/2016 19:13:26 08/21/2016 03:16:32 [id number] Ashtyn ManatiAPRILP [facility] [address] [place] [address] 08/06/2017 16:20:46 08/06/2017 21:19:04 [id number] [facility] RESEARCH ASSOCIATE MOLECULAR BIOLOGY [facility] [address] [place] [address] 02/11/2018 16:01:06 02/11/2018 21:36:59 [id number] Poonam Quinn MD [facility] [address] [place] [address] 06/06/2018 16:55:47 06/10/2018 16:39:57 Overweight 714956406 E66.3 Diet: 1800 Calories Low Glycemic Diet Exercise: Work up to 30 min 5x/week as tolerated Electrocar diogram abnormal 517096625 R94.31 LVH Intermitte nt palpitations 452612678 R00.2 once per week last few seconds fast and regular for 4 to 5 beats for last 4- 5 yearsTSH normal Essential hypertension 01474869 I10 controlled with treatment Tobacco de pendence syndrome 84408235 F17.810 [id number] Poonam Quinn MD [facility] [address] [place] [address] 06/19/2018 09:21:20 06/19/2018 10:16:22 Electrocardiogram abnormal 794988825 R94.31 LVH [id number] [facility], RESEARCH ASSOCIATE MOLECULAR BIOLOGY [facility] [address] [place] [address] 09/02/2018 16:58:51 09/03/2018 09:16:52 [id number] Ashtyn ManatiASHTYN [facility] [address] [place] [place] [address] 11/12/2018 15:01:58 11/12/2018 18:51:23 [id number] Ashtynalistair Bolivar, RESEARCH ASSOCIATE MOLECULAR BIOLOGY [facility] [address] [place] [address] 11/29/2021 17:04:20 11/30/2021 06:58:32 [id number] Ashtyn Bolivar, RESEARCH ASSOCIATE MOLECULAR BIOLOGY [facility] [address] [place] [address] 12/15/2021 12:22:05 12/16/2021 08:34:45 [id number] Kai Davis MD [facility] [place] [address] [place] [address] 01/11/2022 16:24:26 01/11/2022 17:30:02 [id number] Kai Davis MD [facility] [address] [place] [address] 02/21/2022 10:08:23 02/21/2022 14:16:00 [id number] Ashtynalistair Bolivar, RESEARCH ASSOCIATE MOLECULAR BIOLOGY [facility] [address] [place] [address] 03/06/2022 17:54:38 03/07/2022 23:28:20 [id number] Ashtyn Bolivar, RESEARCH ASSOCIATE MOLECULAR BIOLOGY [facility] [address] [place] [address] 05/11/2022 15:06:18 05/12/2022 06:02:02 Health Concerns Section Related Observation LastModified by Organization Detai ls LastModified Time None Recorded Concern Status LastModified by Organization Details LastModified Time None Recorded Advance Directives Directive N: Payers Encounter Date Sequence Insurance Name Policy Number Policy Crawley Covered Member ID Crawley Member ID Guarantor Name 06/06/2018 1 [facility] DUAL ELIGIBLE (MEDICARE REPLACEMENT/ ADVANTAGE - HMO) [facility] Sangita Umana [id number] Sangita Umana 06/06/2018 2 [facility] (MEDICAID HMO) Sangita Umana [id number] Sangita Umaan 06/19/2018 1 [facility] - [facility]IG[facility] (MEDICARE REPLACEMENT/ ADVANTAGE - HMO) [facility] Sangita Grace Dong [id number] Sangita C Dong 06/19/2018 2 [facility] (MEDICAID HMO) Sangita Grace Dong [id number] Sangita Umana Notes Date Note Type Note Provider Name and Address Organization Details Recorded Time 06/06/2018 text/html [facility] 1Reported bypatient.Notes:Saqib nieto seen for [...] or [place] [address], [place], [address], [facility] 06/06/2018 18:09:31 OBGyn Episode No OBEpisode recorded.
--- OUTSIDE RECORDS SUMMARY | 2024-08-04 15:46 | XMS_ITS | Data Portability ---
Author Organization [place] - [facility], autoContract - [facility] Address [address] [facility] [address] [place] [address] Assessment No assessment recorded. Plan of Treatment Reminders Order Date Submit Date Provider Last Modified By Organization Details Last Modified Time Details Appointments None recorded. Lab culture, urine 011 [employer], [address], [address], 3 04:00:47 Referral None recorded. Procedures None recorded. Surgeries None recorded. Imaging None recorded. Medication Orders Bactrim DS 800 mg-160 mg tablet 011 [facility] [id number], [address] , [place], [address], 3 04:00:47 Patient TargetsNo targets recorded. Patient InstructionsNo instructions recorded. Reason for Referral None Reported. Results Created Date Observation Date Name Description Value Unit Range Abnormal Flag Note LastModifiedBy Organization Detail LastModifiedTime 12/20/19 11 12/21/2010 cultu re, urine source urine-voided URINE- VOIDED Not Available [facility] [address], [address], 12/22/2010 03:34:08 12/20/19 11 12/21/2010 cultu re, urine culture, urine order ed test: cultu re,ur ine micro numbe r: [id number] test statu s: final speci men [...] A 1:100 0 dilut ion Not Available [employer] [address], [address], 12/22/2010 03:34:08 Result Notes None recorded. Problems Name Problem SNOMED Code Status Onset Date Resolution Date Notes Provider Name and Address Organization Details Recorded Time Dysuria 19288043 Active Not Available [facility] 01/21/2013 03:02:05 Problem Notes None recorded. Procedures Surgical History Date Name Laterality Status Provider Name and Address Organization Details Recorded Time 8 Hip Surgery completed Not Available [facility] 03/23/20 11 02:44:39 Imaging Results [...] Details Last Updated DateTime 1 154.94 cm 67535.2 5712 g 33.3 kg/m2 98.1 [degF] 66 /min 98 % 98 % 128 mm[Hg] 81 mm[Hg] Amaya Fine (Elenita) [facility] 1 19:46:12 Social History Question Answer Notes LastModified by Organizat ion Details LastModified Time Tobacco Smoking Status Current Every Day Smoker Not Available [facility] 03/16/2011 05:14:21 What Is Your Level [...] SNOMED-CT Code Diagnosis ICD10 Code Diagnosis Note [id number] [facility] [address] [place] [address] 05/05/2010 18:12:34 05/05/2010 19:18:30 [id number] Amaya Guo) [facility] [address] [place] [address] 05/10/2010 17:06:55 05/10/2010 18:50:11 [id number] [facility] [address] [place] [address] 05/31/2010 18:17:55 05/31/2010 19:23:28 [id number] [facility] [address] [place] [address] 10/04/2010 17:25:28 10/04/2010 18:04:57 [id number] Amaya Babatunde (Elenita) [facility] [address] [place] [address] 10/26/2010 15:30:56 10/26/2010 16:47:04 [id number] [facility] [address] [place] [address] 12/19/2010 19:34:25 12/19/2010 20:13:27 [id number] [facility] [address] [place] [address] 03/17/2011 14:44:01 03/17/2011 15:31:54 [id number] [facility] [address] [place] [address] 06/01/2011 12:28:37 06/01/2011 13:54:09 [id number] Amaya Fronek (Elenita) [facility] [address] [place] [address], [place] [address] 07/18/2012 19:08:12 07/19/2012 13:17:25 [id number] Amaya Fronek (Elenita) [facility] [address] [place] [address], [place] [address] 05/22/2013 16:22:52 05/23/2013 10:09:02 [id number] [facility] [address] [place] [address] 12/15/2013 18:32:26 12/15/2013 19:40:41 [id number] Essence Knowles, [facility] [address] [place] [address], [place] [address] 01/02/2014 10:53:17 01/02/2014 15:51:25 [id number] Bess Oh [facility] [address] [place] [address], [place] [address] 03/19/2014 15:04:03 03/19/2014 15:32:34 [id number] Carolin Gonzalez,CCM A [facility] [address] [place] [address], [place] [address] 05/10/2015 15:37:23 05/11/2015 11:24:05 [id number] Kateryna Isbaeljanice [facility] [address] [place] [address] 07/13/2015 15:34:17 07/14/2015 12:42:51 [id number] Barby Rogel MD [facility] [address] [place] [address] 05/15/2016 17:34:06 05/15/2016 19:08:03 [id number] Radha Mcmahon, [facility] [address] [place] [address] 08/18/2016 19:13:26 08/21/2016 03:16:32 [id number] [facility] [address] [place] [address] 08/06/2017 16:20:46 08/06/2017 21:19:04 [id number] [facility] [address] [place] [address] 02/11/2018 16:01:06 02/11/2018 21:36:59 [id number] MD kirstin [facility] [facility] [address] [place] [address] 06/06/2018 16:55:47 06/10/2018 16:39:57 [id number] Poonam Quinn MD [facility] [place] [facility] [address] [place] [address] 06/19/2018 09:21:20 06/19/2018 10:16:22 [id number] [facility] [address] [place] [address] 09/02/2018 16:58:51 09/03/2018 09:16:52 [id number] [facility] [address] [place] [address] 11/12/2018 15:01:58 11/12/2018 18:51:23 [id number] Ashtyn Bolivar, CELLAR SUPERVISOR [facility] [address] [place] [address] 11/29/2021 17:04:20 11/30/2021 06:58:32 [id number] Ashtyn Bolivar, ASHTYN [facility] [address] [place] [address] 12/15/2021 12:22:05 12/16/2021 08:34:45 [id number] MD KIRSTIN [facility] [place] [address] [place] [address] 01/11/2022 16:24:26 01/11/2022 17:30:02 [id number] Kai Davis MD [facility] [address] [place] [address] 02/21/2022 10:08:23 02/21/2022 14:16:00 [id number] Ashtyn Bolivar, ASHTYN [facility] [address] [place] [address] 03/06/2022 17:54:38 03/07/2022 23:28:20 [id number] Ashtyn Bolivar, ASHTYN [facility] [address] [place] [address] 05/11/2022 15:06:18 05/12/2022 06:02:02 Health Concerns Section Related Observation LastModified by Organization Detai ls LastModified Time None Recorded Concern Status LastModified by Organization Details LastModified Time None Recorded Advance Directives Directive None Recorded Payers Encounter Date Sequence Insurance Name Policy Number Policy Crawley Covered Member ID Crawley Member ID Guarantor Name 12/19/2010 1 [facility] [place] [facility] (MEDICAID HMO) Sangita Umana [id number] Sangita Umana OBGyn Episode No OBEpisode recorded.
--- OUTSIDE RECORDS SUMMARY | 2024-08-04 15:47 | XMS_ITS | Data Portability ---
Author Organization [facility] Address [address] [place] [address] Care Team Providers Care Head Packager Name Role Phone MARIA GARCIA OTHER MARY BOLIVAR Primary Care Provider [phone] Assessment No assessment recorded. Plan of Treatment Reminders Order Date Submit Date Provider Last Modified By Organization Details Last Modified Time Details Appointments None recorded. Lab None recorded. Referral dermatologi st referral 2022 023 [email or web address] [facility], [address] [facility], [address], [place], [address], 3 15:06:17 cardiologis t referral 2021 022 [facility], [address] [facility], [address], [place], [address], 3 14:31:58 physical therapist referral 2021 022 [facility], [address], [address], [place], [address], 2 10:21:30 Procedures lexiscan cardiolite stress test (PROC) 2021 022 [email or web address] 1 Not available 14:14:52 Surgeries None recorded. Imaging None recorded. Medication Orders Kenalog 40 mg/mL suspension for injection 2022 023 [id number], [address], [place], [place], [id number], 3 16:17:39 methylpredn isolone 4 mg tablets in a dose pack 2021 [email or web address] #35584, [address], [place], [place], [id number], 18:42:42 Lexiscan 0.4 mg/5 mL intravenous syringe 2021 [email or web address] 1 [email or web address] #95876, [address], [place], [place], [id number], 10:37:35 mupirocin 2 % topical ointment 2021 [email or web address] #22654, [address], [place], [place], [id number], 13:03:36 montelukast 10 mg tablet 2021 [email or web address] #86455, [address], [place], [place], [id number], 13:03:37 ProAir HFA 90 mcg/actuati on aerosol inhaler 2021 [email or web address] #24589, [address], [place], [place], [id number], 2 13:03:37 duloxetine 60 mg capsule,del ayed release 2021 [email or web address] #53589, [address], [place], [place], [id number], 2 13:03:38 metoprolol succinate ER 25 mg tablet,exte nded release 24 hr 2021 022 [facility] #50756, [address] [facility], [place], [place], [id number], 13:03:37 Patient TargetsNo targets recorded. Patient Instructions Encounter Date Encounter Id Patient Instructions Last Modified By Organization Details Last Modified Time 03/06/2022 [id number] depression treatment: care instructions [email or web address] Not available 03/06/2022 21:24:17 05/11/2022 [id number] depression treatment: care instructions [email or web address] Not available 05/11/2022 20:01:49 coordination of care* - no car - needs assistance for transport for epidural injection - grocery assistance [email or web address] Not available 05/23/2022 18:16:41 Reason for Referral Physical Therapist Referral for Tendinitis of right shoulder Referring Physician: Mary Allen [facility], Encounter Date: 12/15/2021 Otr Owner Operator Referral for Ac jaci non-ST segment elevation myocardial infarction Referring Physician: Mary Allen [facility], Encounter Date: 12/15/2021 Throat Cutter Referral for B nehemiah cell carcinoma of skin Referring Physician: Mary Allen [facility], Encounter Date: 05/11/2022 Results Created Date Observation Date Name Description Value Unit Range Abnormal Flag Note LastModifiedBy Organization Detail LastModifiedTime 12/16/1912/15/2021 COMPL ETE BLOOD COUNT WITH AUTO DIFF white blood cell 8.1 K/uL 4.4-10 .8 Not Available [facility] [place] [address] [place], [address], 12/15/2021 23:05:23 12/16/19 22 12/15/2021 COMPL ETE BLOOD COUNT WITH AUTO DIFF red blood cell 3.99 M/uL 4.02-5 .18 low Not Available [facility] [place] [address] [place], [address], 12/15/2021 23:05:23 12/16/19 22 12/15/2021 COMPL ETE BLOOD COUNT WITH AUTO DIFF hemoglobin 13.1 g/dL 11.5-1 5.5 Not Available [facility] [place] [address], [place], [address], 12/15/2021 23:05:23 12/16/19 22 12/15/2021 COMPL ETE BLOOD COUNT WITH AUTO DIFF hematocrit 39.5 % 36.0-4 8.0 Not Available [facility] [place] [address], [place], [address], 12/15/2021 23:05:23 12/16/19 22 12/15/2021 COMPL ETE BLOOD COUNT WITH AUTO DIFF mean corpuscular volume 99.0 fL 80.0-9 7.0 high Not Available [facility] [place] [address], [place], [address], 12/15/2021 23:05:23 12/16/19 22 12/15/2021 COMPL ETE BLOOD COUNT WITH AUTO DIFF mean corpuscular hemoglobin 32.8 pg 25.8-3 2.9 Not Available [facility] [place] [address], [place], [address], 12/15/2021 23:05:23 12/16/19 22 12/15/2021 COMPL ETE BLOOD COUNT WITH AUTO DIFF mean corpuscular hemoglobin concentratio n 33.2 g/dL 31.0-3 5.0 Not Available [facility] [place] [address], [place], [address], 12/15/2021 23:05:23 12/16/19 22 12/15/2021 COMPL ETE BLOOD COUNT WITH AUTO DIFF red cell distribution width 14.2 % 11.1-1 5.1 Not Available [facility] [place] [address], [place], [address], 12/15/2021 23:05:23 12/16/19 22 12/15/2021 COMPL ETE BLOOD COUNT WITH AUTO DIFF platelets 258 K/uL 140-40 0 Not Available [facility] [place] [address], [place], [address], 12/15/2021 23:05:23 12/16/19 22 12/15/2021 COMPL ETE BLOOD COUNT WITH AUTO DIFF mean platelet volume 10.3 fL 7.5-14 .0 Not Available [facility] [place] [address] [facility], [place], [address], 12/15/2021 23:05:23 12/16/19 22 12/15/2021 COMPL ETE BLOOD COUNT WITH AUTO DIFF neutrophil, percentage 67.8 % 38.8-7 6.4 Not Available [facility] [place] [address] [facility], [place], [address], 12/15/2021 23:05:23 12/16/19 22 12/15/2021 COMPL ETE BLOOD COUNT WITH AUTO DIFF lymphocyte, percentage 24.1 % 17.8-4 6.6 Not Available [facility] [place] [address], [place], [address], 12/15/2021 23:05:23 12/16/19 22 12/15/2021 COMPL ETE BLOOD COUNT WITH AUTO DIFF monocyte, percentage 4.8 % 3.0-11 .0 Not Available [facility] [place] [address], [place], [address], 12/15/2021 23:05:23 12/16/19 22 12/15/2021 COMPL ETE BLOOD COUNT WITH AUTO DIFF eosinophil, percentage 2.0 % 0.0-6. 0 Not Available [facility] [place] [address] [facility] [address], [place], [address], 12/15/2021 23:05:23 12/16/19 22 12/15/2021 COMPL ETE BLOOD COUNT WITH AUTO DIFF basophil, percentage 0.9 % 0.0-2. 0 Not Available [facility] [place] [address], [place], [address], 12/15/2021 23:05:23 12/16/19 22 12/15/2021 COMPL ETE BLOOD COUNT WITH AUTO DIFF neutrophil, absolute 5.5 K/uL 1.9-7. 9 Not Available [facility] [place] [address], [place], [address], 12/15/2021 23:05:23 12/16/19 22 12/15/2021 COMPL ETE BLOOD COUNT WITH AUTO DIFF lymphocyte, absolute 2.0 K/uL 1.0-4. 9 Not Available [facility] [place] [address], [place], [address], 12/15/2021 23:05:23 12/16/19 22 12/15/2021 COMPL ETE BLOOD COUNT WITH AUTO DIFF monocyte, absolute 0.4 K/uL 0.1-1. 2 Not Available [facility] [place] [address] [place], [address], 12/15/2021 23:05:23 12/16/19 22 12/15/2021 COMPL ETE BLOOD COUNT WITH AUTO DIFF eosinophil, absolute 0.2 K/uL 0.0-0. 7 Not Available [facility] [place] [address] [place], [address], 12/15/2021 23:05:23 12/16/19 22 12/15/2021 COMPL ETE BLOOD COUNT WITH AUTO DIFF basophil, absolute 0.1 K/uL 0.0-0. 2 Not Available [facility] [place] [address] [place], [address], 12/15/2021 23:05:23 12/16/19 22 12/15/2021 COMPL ETE BLOOD COUNT WITH AUTO DIFF immature granulocytes % 0.4 % 0.0-3. 0 Not Available [facility] [place] [address] [place], [address], 12/15/2021 23:05:23 12/16/19 22 12/15/2021 COMPL ETE BLOOD COUNT WITH AUTO DIFF immature granulocytes # 0.0 K/uL 0.0-0. 3 Not Available [facility] [place] [address] [place], [address], 12/15/2021 23:05:23 12/16/19 22 12/15/2021 COMPL ETE BLOOD COUNT WITH AUTO DIFF nucleated red blood cell % 0.0 % 0.0-0. 0 Not Available [facility] [place] [address] [place], [address], 12/15/2021 23:05:23 12/16/19 22 12/15/2021 COMPL ETE BLOOD COUNT WITH AUTO DIFF nucleated red blood cell # 0.0 K/uL 0.0-0. 0 Not Available [facility] [place] [address] [place], [address], 12/15/2021 23:05:23 12/16/19 22 12/15/2021 CREAT INE KINAS E creatine kinase 78 U/L 25-160 Not Available [facility] [place] [address] [place], [address], 12/15/2021 23:05:24 12/16/19 22 12/15/2021 COMPR EHENS ANDRIY METAB OLIC PANEL W/EGF R (14) glucose, random 152 mg/dL 70-100 high Not Available [facility] [place] [address], [place], [address], 12/15/2021 23:05:24 12/16/19 22 12/15/2021 COMPR EHENS ANDRIY METAB OLIC PANEL W/EGF R (14) BUN 34 mg/dL 8-25 high Not Available [facility] [place] [address], [place], [address], 12/15/2021 23:05:24 12/16/19 22 12/15/2021 COMPR EHENS ANDRIY METAB OLIC PANEL W/EGF R (14) creatinine 1.1 mg/dL 0.6-1. 4 For patie nts >49 years of age, the refer ence limit for Creat inine is appro ximat tessa 13% highe r for peopl e ident ified as Afric an-Am lorraine n. Not Available [facility] [place] [address], [place], [address], 12/15/2021 23:05:24 12/16/19 22 12/15/2021 COMPR EHENS [...] on CKD. Not Available [facility] [place] [address], [place], [address], 12/15/2021 23:05:24 12/16/19 22 12/15/2021 COMPR EHENS [...] on CKD. Not Available [facility] [place] [address] [place], [address], 12/15/2021 23:05:24 12/16/19 22 12/15/2021 COMPR EHENS ANDRIY METAB OLIC PANEL W/EGF R (14) BUN/creat ratio 31 ratio 10-28 high Not Available [facility] [place] [address] [place], [address], 12/15/2021 23:05:24 12/16/19 22 12/15/2021 COMPR EHENS ANDRIY METAB OLIC PANEL W/EGF R (14) bilirubin, total 0.4 mg/dL 0.2-1. 3 Not Available [facility] [place] [address] [place], [address], 12/15/2021 23:05:24 12/16/19 22 12/15/2021 COMPR EHENS ANDRIY METAB OLIC PANEL W/EGF R (14) AST (SGOT) 53 U/L 14-36 high Not Available [facility] [place] [address] [place], [address], 12/15/2021 23:05:24 12/16/19 22 12/15/2021 COMPR EHENS ANDRIY METAB OLIC PANEL W/EGF R (14) ALT (SGPT) 83 U/L 7-41 high Not Available [facility] [place] [address] [place], [address], 12/15/2021 23:05:24 12/16/19 22 12/15/2021 COMPR EHENS ANDRIY METAB OLIC PANEL W/EGF R (14) alkaline phosphatase 66 U/L 40-135 Not Available [facility] [place] [address] [place], [address], 12/15/2021 23:05:24 12/16/19 22 12/15/2021 COMPR EHENS ANDRIY METAB OLIC PANEL W/EGF R (14) calcium 9.1 mg/dL 8.4-10 .2 Not Available [facility] [place] [address] [place], [address], 12/15/2021 23:05:24 12/16/19 22 12/15/2021 COMPR EHENS ANDRIY METAB OLIC PANEL W/EGF R (14) sodium 137 mmol/ L 134-14 4 Not Available [facility] [place] [address] [place], [address], 12/15/2021 23:05:24 12/16/19 22 12/15/2021 COMPR EHENS ANDRIY METAB OLIC PANEL W/EGF R (14) potassium 4.2 mmol/ L 3.5-5. 2 Not Available [facility] [place] [address] [place], [address], 12/15/2021 23:05:24 12/16/19 22 12/15/2021 COMPR EHENS ANDRIY METAB OLIC PANEL W/EGF R (14) chloride 105 mmol/ L 96-110 Not Available [facility] [place] [address] [place], [address], 12/15/2021 23:05:24 12/16/19 22 12/15/2021 COMPR EHENS ANDRIY METAB OLIC PANEL W/EGF R (14) CO2 23 mmol/ L 22-30 Not Available [facility] [place] [address] [place], [address], 12/15/2021 23:05:24 12/16/19 22 12/15/2021 COMPR EHENS ANDRIY METAB OLIC PANEL W/EGF R (14) total protein 6.9 g/dL 6.3-8. 2 Not Available [facility] [place] [address] [place], [address], 12/15/2021 23:05:24 12/16/19 22 12/15/2021 COMPR EHENS ANDRIY METAB OLIC PANEL W/EGF R (14) albumin 4.4 g/dL 3.5-5. 0 Not Available [facility] [place] [address] [place], [address], 12/15/2021 23:05:24 12/16/19 22 12/15/2021 COMPR EHENS ANDRIY METAB OLIC PANEL W/EGF R (14) globulin 2.5 g/dL 2.0-3. 7 Not Available [facility] [place] [address] [place], [address], 12/15/2021 23:05:24 12/16/19 22 12/15/2021 COMPR EHENS ANDRIY METAB OLIC PANEL W/EGF R (14) albumin/glob ulin 1.8 ratio 1.0-2. 4 Not Available [facility] [place] [address] [place], [address], 12/15/2021 23:05:24 12/16/19 22 12/15/2021 COMPR EHENS ANDRIY METAB OLIC PANEL W/EGF R (14) anion gap 8 ratio 4-18 Not Available [facility] [place] [address] [place], [address], 12/15/2021 23:05:24 12/16/19 22 12/15/2021 TSH RFLX TO FREE T4 TSH 1.08 mIU/L 0.45-4 .50 Not Available [facility] [place] [address], [place], [address], 12/15/2021 23:05:25 12/16/19 22 12/15/2021 URINA LYSIS WITH MICRO SCOPI C REFLX CULTU RE urine color LIGHT- YELLOW yellow abnormal Not Available [facility] [place] [address] [facility], [place], [address], 12/15/2021 23:05:26 12/16/19 22 12/15/2021 URINA LYSIS WITH MICRO SCOPI C REFLX CULTU RE urine clarity CLEAR clear Not Available [facility] [place] [address], [place], [address], 12/15/2021 23:05:26 12/16/19 22 12/15/2021 URINA LYSIS WITH MICRO SCOPI C REFLX CULTU RE urine glucose NEGATI VE negati ve Not Available [facility] [place] [address], [place], [address], 12/15/2021 23:05:26 12/16/19 22 12/15/2021 URINA LYSIS WITH MICRO SCOPI C REFLX CULTU RE urine ketones NEGATI VE negati ve Not Available [facility] [place] [address], [place], [address], 12/15/2021 23:05:26 12/16/19 22 12/15/2021 URINA LYSIS WITH MICRO SCOPI C REFLX CULTU RE urine bilirubin NEGATI VE negati ve Not Available [facility] [place] [address], [place], [address], 12/15/2021 23:05:26 12/16/19 22 12/15/2021 URINA LYSIS WITH MICRO SCOPI C REFLX CULTU RE urine specific gravity 1.011 1.005- 1.030 Not Available [facility] [place] [address], [place], [address], 12/15/2021 23:05:26 12/16/19 22 12/15/2021 URINA LYSIS WITH MICRO SCOPI C REFLX CULTU RE urine pH 5.5 5.0-7. 0 Not Available [facility] [place] [address], [place], [address], 12/15/2021 23:05:26 12/16/19 22 12/15/2021 URINA LYSIS WITH MICRO SCOPI C REFLX CULTU RE urine hemoglobin TRACE negati ve abnormal Not Available [facility] [place] [address], [place], [address], 12/15/2021 23:05:26 12/16/19 22 12/15/2021 URINA LYSIS WITH MICRO SCOPI C REFLX CULTU RE urine protein NEGATI VE negati ve Not Available [facility] [place] [address], [place], [address], 12/15/2021 23:05:26 12/16/19 22 12/15/2021 URINA LYSIS WITH MICRO SCOPI C REFLX CULTU RE urine urobilinogen NORMAL mg/dL normal Not Available [facility] [place] [address], [place], [address], 12/15/2021 23:05:26 12/16/19 22 12/15/2021 URINA LYSIS WITH MICRO SCOPI C REFLX CULTU RE urine nitrate NEGATI VE negati ve Not Available [facility] [place] [address], [place], [address], 12/15/2021 23:05:26 12/16/19 22 12/15/2021 URINA LYSIS WITH MICRO SCOPI C REFLX CULTU RE urine leukocyte esterase NEGATI VE chris/u L negati ve Not Available [facility] [place] [address] [facility], [place], [address], 12/15/2021 23:05:26 12/16/19 22 12/15/2021 URINA LYSIS WITH MICRO SCOPI C REFLX CULTU RE urine white blood cells <6 /hpf <6 Not Available [facility] [place] [address] [facility], [place], [address], 12/15/2021 23:05:26 12/16/19 22 12/15/2021 URINA LYSIS WITH MICRO SCOPI C REFLX CULTU RE urine red blood cells <5 /hpf <5 Not Available [facility] [place] [address] [facility], [place], [address], 12/15/2021 23:05:26 12/16/19 22 12/15/2021 URINA LYSIS WITH MICRO SCOPI C REFLX CULTU RE urine bacteria NEGATI VE /hpf negati ve Not Available [facility] [place] [address] [facility], [place], [address], 12/15/2021 23:05:26 12/16/19 22 12/15/2021 URINA LYSIS WITH MICRO SCOPI C REFLX CULTU RE urine squamous epithelial cells FEW /hpf few Not Available [facility] [place] [address] [facility], [place], [address], 12/15/2021 23:05:26 12/16/19 22 12/15/2021 MICRO ALBUM IN/CR EATIN INE RATIO , RANDO M albumin, urine <3.0 Noah ified by qasim black sheila sis Not Available [address], [address], 12/16/2021 16:11:33 12/16/19 22 12/15/2021 MICRO ALBUM IN/CR EATIN INE RATIO , RANDO M alb/creat ratio <7 Tena l: 0 - 29 Moder ately incre ased: 30 - 300 Sever tessa incre ased: >300 Not Available [facility] [address] [place], [address], 12/16/2021 16:11:33 12/16/19 22 12/16/2021 MICRO ALBUM IN/CR EATIN INE RATIO , RANDO M creatinine, urine 43.7 mg/dL not estab. normal Not Available [facility] [address] [place], [address], 12/16/2021 16:11:33 01/10/20 22 11/08/2021 US, echoc ardio gram, trans thora cic, compl ete, w/ color flow No observ ation record ed. Not Available 01/09 12:25:18 01/10/20 22 11/07/2021 CT, chest , w/ contr ast No observ ation record ed. [email or web address] Not Available 01/09 12:26:35 01/10/20 22 11/08/2021 elect rocar diogr am No observ ation record ed. [email or web address] Not Available 01/09 13:04:25 02/28/20 22 02/21/2022 [...] Time Mixed anxiety and depressiv e disorder 947384494 Active APRIL DyerP [address], [place], [address] , [facility] 6 23:05:09 Degenerat ion of lumbar intervert ebral disc 61725395 Active Mary Bolivar [facility] [address], [place], [address] , [facility] 6 23:05:09 Cigarette smoker 37051515 Active APRIL DyerP [address], [place], [address] , [facility] 6 23:05:09 Degenerat ion of lumbosacr al intervert ebral disc 83651132 Active Mary Bolivar [facility] [address], [place], [address] , [facility] 6 23:05:09 Increased frequency of urination 257949934 Active 2017 Mary Bolivar [facility] [address], [place], [address] , [facility] 8 17:30:33 Visual disturban ce 09865055 Active 2017 Mary Bolivar [facility] [address], [place], [address] , [facility] 8 17:35:59 Mild memory disturban ce 463442379 Active 2017 Mary Bolivar [facility] [address], [place], [address] , [facility] 8 20:54:57 Long-term current use of opiate analgesic drug 69595429011 4108 Active 2017 Mary Bolivar [facility] [address], [place], [address] , [facility] 8 21:00:28 Overweigh t 942774489 Active 2017 Mary Bolivar, [employer] [address], [place], [address] , [place] [facility] 8 17:16:33 History of hepatitis C 14571431885 101 Active 2017 APRIL DyerP [address], [place], [address] , [facility] - [facility] 8 17:18:05 Malaise and fatigue 346562534 Active 2017 APRIL DyerP [address], [place], [address] , [facility] - [facility] 8 17:19:09 Intermitt ent palpitati ons 028296931 Active 2017 APRIL DyerP [address], [place], [address] , [facility] - [facility] 8 17:39:53 Blood glucose outside reference range 667627567 Active 2018 APRIL DyerP [address], [place], [address] , [facility] - [facility] 9 18:44:22 Spinal stenosis in cervical region 97308747 Active 2018 Mary Bolivar [employer] [address], [place], [address] , [facility] - [facility] 9 15:58:06 Lumbar post-lami nectomy syndrome 309602627 Active 2018 Mary Bolivar [employer] [address], [place], [address] , [facility] - [facility] 9 16:04:11 Palpitati ons 36810165 Active 2017 Not Available [facility] 0 10:47:05 Acute injury of kidney 10642701048 653764 Active 2021 APRIL DyerP [address], [place], [address] , [facility] 2 17:55:57 Rhabdomyo lysis 178944455 Active 2021 [facility], [employer] [address], [place], [address] , [facility] 2 17:56:19 Acute non-ST segment elevation myocardia l infarctio n 265765253 Active 2021 Mary Allen, [employer] [address], [place], [address] , [facility] 2 18:04:07 Body mass index 20-24 - normal 674780666 Active 2021 Mary Bolivar, [employer] [address], [place], [address] , [facility] 2 22:02:51 Tendiniti s of right shoulder 82227293201 37630 Active 2021 Mary Allen, [employer] [address], [place], [address] , [facility] 2 12:45:33 Superfici al injury of foot without infection 06455368 Active 2021 [facility], [employer] [address], [place], [address] , [facility] 2 12:51:42 Infection of skin 778662599 Active 2021 Mary Allen, [employer] [address], [place], [address] , [facility] 2 12:56:57 Liver enzymes level above reference range 992903372 Active 2021 [facility], [employer] [address], [place], [address] , [facility] 2 16:01:49 Celluliti s of foot 069967978 Active 2021 [facility], [employer] [address], [place], [address] , [facility] 2 22:38:23 Headache 52944456 Active 2021 Mary Bolivar, [employer] [address], [place], [address] , [facility] - [facility] 2 23:51:23 Liver function tests outside reference range 322327367 Active 2021 Mary Bolivar [employer] [address], [place], [address] , [facility] 2 18:25:35 Lumbar radiculop athy 539072659 Active 2021 Mary Bolivar [employer] [address], [place], [address] , [facility] 2 15:21:10 Basal cell carcinoma of skin 665174616 Active 2022 APRIL DyerP [address], [place], [address] , [facility] 3 15:35:25 Lumbago with sciatica 557800405 Active 2022 Mary Bolivar, [employer] [address], [place], [address] , [facility] 3 15:47:59 Finding of hand region [id number] Completed 05/10/2015 Mary Bolivar [employer] [address], [place], [address] , [facility] 6 23:05:09 Gastroeso phageal reflux disease 128489147 Active Mary Bolivar [employer] [address], [place], [address] , [facility] 6 23:05:09 Chronic pain syndrome 284754965 Active Mary Bolivar [employer] [address], [place], [address] , [facility] 6 23:05:09 Cough 75346707 Completed 08/06/2017 Mary Bolivar, [employer] [address], [place], [address] , [facility] - [facility] 8 17:19:04 Menopausa l symptom 05294659 Active [facility], [employer] [address], [place], [address] , [facility] 6 23:05:09 Benign essential hypertens ion 6997480 [facility], [employer] [address], [place], [address] , [facility] 6 23:05:09 Benign essential hypertens ion 6175837 Completed 05/10/2010 [facility], [employer] [address], [place], [address] , [facility] - [facility] 6 23:05:09 Acute hepatitis C 776987140 Completed 02/11/2018 [facility], [employer] [address], [place], [address] , [facility] 8 17:17:48 Feeling nervous 741070542 [facility], [employer] [address], [place], [address] , [facility] 6 23:05:09 Degenerat andriy joint disease involving multiple joints 705274297 [facility], [employer] [address], [place], [address] , [facility] 6 23:05:09 Depressiv e disorder 96898147 [facility], [employer] [address], [place], [address] , [facility] 6 23:05:09 Closed fracture of phalanx of foot 27388874 [facility], [employer] [address], [place], [address] , [facility] 6 23:05:09 Tobacco dependenc e syndrome 62651050 Completed 08/06/2017 Mary Allen, [employer] [address], [place], [address] , [facility] 8 17:22:06 Shoulder joint pain 916105937 Active Mary Bolivar [employer] [address], [place], [address] , [facility] 6 23:05:09 Carpal tunnel syndrome 03451367 Active Mary Allen, [employer] [address], [place], [address] , [facility] 6 23:05:09 Obesity 685871471 Active Mary Allen [employer] [address], [place], [address] , [facility] 6 23:05:09 Osteopeni a 452480140 Active Mary Allen [facility] [address], [place], [address] , [facility] 6 23:05:09 Low back pain 607823155 Completed 08/06/2017 Mary Allen [facility] [address], [place], [address] , [facility] 8 20:57:40 Asthma 647860012 Active Mary Allen [facility] [address], [place], [address] , [facility] 6 23:05:09 Problem Notes None recorded. Procedures Surgical History Date Name Laterality Status Provider Name and Address Organization Details Recorded Time 02/22/20 22 Stress MPI INITIAL - Lexiscan (IAC) completed Rebecca Matthew [facility] 02/21/2022 14:09:56 02/22/20 22 Stress MPI RESULT - Normal (IAC) [place] [address], [place], [address], [facility] 02/27/2022 10:37:33 12/30/19 21 Knee Replacement completed Mary Bolivar, [employer] [address], [place], [address], [facility] 11/29/2021 17:59:04 08/07/19 18 PCM Nicotine SMOKING completed Pascaledaniel Chu [facility] 08/06/2017 16:48:59 08/19/19 17 PCMH Nicotine SMOKING completed SUNG Marsh [facility] 08/18/2016 19:24:27 05/15/19 17 PCM Nicotine SMOKING completed Rakan Chase [facility] 05/15/2016 18:20:54 05/15/19 17 [facility] Depression Screening PHQ9 completed Rakan Chase [facility] 05/15/2016 18:20:44 04/30/19 10 Other (Please specify) completed Not Available [facility] 03/23/2011 02:44:30 04/30/19 09 Hip Surgery completed Not Available [facility] 03/23/2011 02:44:30 04/30/19 00 Tubal Ligation completed Not Available [facility] 03/23/2011 02:44:30 04/30/18 99 Cholecystectomy completed Not Available [facility] 03/23/2011 02:44:30 Gallbladder Surgery completed Alla Mccabe [facility] 01/11/2022 16:28:45 Back Surgery completed Alla Mcacbe [facility] 01/11/2022 16:28:45 Joint Replacement completed Chula Mccabe [facility] 01/11/2022 16:28:45 Spine Surgery (Cervical, Thoracic, Lumbar) completed Alla Mccabe [facility] 01/11/2022 16:28:45 Section completed Mary Bolivar, [employer] [address], [place], [address], [facility] 03/06/2022 18:43:29 Breast Surgery (Lumpectomy, Biopsy, Implants) completed Mary Bolivar, [employer] [address], [place], [address], [facility] 03/06/2022 18:43:29 Carpal tunnel surgery completed Mary Bolivar, [employer] [address], [place], [address], [place] - [facility] 06/12/2017 11:13:47 Imaging Results Imaging Date Name Status LastModified by Organization Details LastModified Time 11/08/2021 US, echocardiogram, transthoracic, complete, w/ color flow completed [email or web address] Information not available 01/09/2022 12:25:18 11/07/2021 CT, chest, w/ contrast completed Information not available 01/09/2022 12:26:35 11/08/2021 electrocardiogram completed [email or web address] Informa tion not available 01/09/2022 13:04:25 02/21/2022 [...] Updated DateTime 2 152.4 cm 21.6 kg/m2 18218.3 2 g 99.3 [degF] 99 % 99 % 69 /min 14 /min 140 mm[Hg] 80 mm[Hg] Pina Gambino [facility] 2 12:30:23 Date Recorded Body height Body mass index (BMI) Body weight Heart rate Oxygen saturation Oxygen saturation in Arterial blood by Pulse oximetry Systolic blood pressure Diastolic blood pressure Provider Name and Address Organization Details Last Updated DateTime 2 152.4 cm 23 kg/m2 63141.9 g 72 /min 98 % 98 % 122 mm[Hg] 66 mm[Hg] Alla Mccabe [facility] 2 16:38:02 Date Recorded Body height Body mass index (BMI) Body weight Body temperature Heart rate Respiratory rate Oxygen saturation Oxygen saturation in Arterial blood by Pulse oximetry Systolic blood pressure Diastolic blood pressure Provider Name and Address Organization Details Last Updated DateTime 2 152.4 cm 23.5 kg/m2 19262.1 8 g 98 [degF] 50 /min 16 /min 97 % 97 % 126 mm[Hg] 67 mm[Hg] Yin May [facility] 2 18:21:37 Date Recorded Body height Body mass index (BMI) Body weight Body temperature Respiratory rate Oxygen saturation Oxygen saturation in Arterial blood by Pulse oximetry Heart rate Systolic blood pressure Diastolic blood pressure Provider Name and Address Organization Details Last Updated DateTime 3 152.4 cm 23.4 kg/m2 43177.0 8 g 98.7 [degF] 16 /min 99 % 99 % 64 /min 110 mm[Hg] 80 mm[Hg] Pina Gambino [facility] 3 15:18:31 Social History Question Answer Notes LastModified by Organizat ion Details LastModified Time Tobacco Smoking Status Current Every Day Smoker [facility], [facility] [address], [place], [address], [facility] 03/06/2022 18:43:22 Do You Have An Advance Directive? No [email or web address] Information not available 01/11/2022 What Is Your Level Of Alcohol Consumption? None Clean And Sober Information not available 05/10/2015 Are You Blind Or Do You Have Difficulty Seeing? Yes [email or web address] Information not available 01/11/2022 Is Blood Transfusion Acceptable In An Emergency? Yes [email or web address] Information not available 01/11/2022 What Is Your Level Of Caffeine Consumption? Moderate [email or web address] Information not available 01/11/2022 How Much Tobacco Do You Chew? None Information not available 09/02/2018 Are You Currently Employed? No [email or web address] Information not available 01/11/2022 Are You Deaf Or Do You Have Serious Difficulty Hearing? No [email or web address] Information not available 01/11/2022 What Type Of Diet Are You Following? REGULAR Information not available 08/06/2017 What Is Your Occupation? Disability Information not available 08/06/2017 When Did You Quit Smoking? 1-5yearssince lastcigarette Information not available 11/29/2021 Which Of Your Hands Is Dominant? Right [email or web address] Information not available 01/11/2022 Marital Status Informatio n not available 03/06/2022 What Was The Date Of Your Most Recent Tobacco Screening? 05/11/2022 [email or web address] Information not available 05/11/2022 Do You Have Any Pets? No [email or web address] Information not available 01/11/2022 What Is Your Relationship Status? [email or web address] Information not available 01/11/2022 Are You Sexually Active? No Information not available 03/06/2022 At What Age Did You Start Smoking Tobacco? 47 Information not available 03/06/2022 How Much Tobacco Do You Smoke? No Rolls Own Cigarettes Information not available 03/06/2022 Do You Feel Stressed (tense, Restless, Nervous, Or Anxious, Or Unable To Sleep At Night)? [id number] [email or web address] Information not available 01/11/2022 Do You Use Any Illicit Or Recreational Drugs? No [email or web address] Information not available 01/11/2022 Has Tobacco Cessation Counseling Been Provided? Yes Information not available 03/06/2022 On What Date Was Tobacco Cessation Counseling Provided? 05/11/2022 Information not available 05/11/2022 How Many Years Have You Smoked Tobacco? 42 Information not available 03/06/2022 Do You Or Have You Ever Used Any Other Forms Of Tobacco Or Nicotine? No [email or web address] Information not available 01/11/2022 Sex: Unknown Functional Status Question Answer Note LastModified by Organization D etails LastModified Time Are you able to care for yourself? Yes [email or web address] Information not available 01/11/2022 What is your exercise level? Moderate [email or web address] Information not available 01/11/2022 Mental Status None [...] Not available 2021 18:43:09 Mother Hypertensive disorder Not available 01/11 16:28:33 Mother Hyperlipidem ia [email or web address] Not available 2021 18:43:10 Mother Heart disease [email or web address] Not available 2021 18:43:10 Mother Disorder of musculoskele diego system [email or web address] Not available 03/06 18:43:10 Brother Coronary arterioscler osis [email or web address] Not available 2021 18:43:10 Brother Hypertensive disorder [email or web address] Not available 01/11 16:28:33 Brother Disorder of musculoskele diego system [email or web address] Not available 03/06 18:43:10 Maternal Grandmother Diabetes mellitus [email or web address] Not available 2021 18:43:10 Maternal Grandmother Alzheimer's disease [email or web address] Not available 2021 18:43:10 Maternal Grandmother Depressive disorder [email or web address] Not available 2021 18:43:10 Maternal Grandmother Hypertensive disorder [email or web address] Not available 01/11 16:28:33 Maternal Grandmother Family [...] 03/06 18:43:10 Notes:scoliosis Medical History Condition Response High Blood Pressure (Hypertension) Y Anxiety Y Back/Neck Pain Y Depression Y Neuropathy (Numbness, Pain, Tingling) Y Arthritis Y Osteopenia/Osteoporosis Y Overweight/Obesity Y Spine Disease (Herniated Disc, Scoliosis , Stenosis) Y Asthma Y Liver Disease/Hepatitis Y Fibromyalgia Y Nerve Disease Y Gynecological [...] virus, quadrivalent, PF 4 completed Not Available [facility] 05/17/2019 02:10:36 zoster recombinant 8 completed Pina Patullo null, [facility] 12/15/2021 12:22:52 Influenza, split virus, trivalent, preservative 0 completed Pina Patullo null, [facility] 12/15/2021 12:22:52 Influenza, split virus, quadrivalent, PF 6 completed Pina Patullo null, [facility] 12/15/2021 12:22:52 zoster recombinant 8 completed Pina Patullo null, [facility] 12/15/2021 12:22:52 Past Encounters Encounter ID Performer Location Encounter Start Date Encounter Closed Date Diagnosis/Indication Diagnosis SNOMED-CT Code Diagnosis ICD10 Code Diagnosis Note [id number] [facility] [address] [place] [address] 05/05/2010 18:12:34 05/05/2010 19:18:30 [id number] Amaya Fine (Elenita) [facility] [address] [facility] [place] [address] 05/10/2010 17:06:55 05/10/2010 18:50:11 [id number] [facility] [address] [facility] [place] [address] 05/31/2010 18:17:55 05/31/2010 19:23:28 [id number] [facility] [address] [place] [address] 10/04/2010 17:25:28 10/04/2010 18:04:57 [id number] Amaya Guo) [facility] [address] [place] [address] 10/26/2010 15:30:56 10/26/2010 16:47:04 [id number] [facility] [address] [place] [address] 12/19/2010 19:34:25 12/19/2010 20:13:27 [id number] [facility] [address] [place] [address] 03/17/2011 14:44:01 03/17/2011 15:31:54 [id number] [facility] [address] [place] [address] 06/01/2011 12:28:37 06/01/2011 13:54:09 [id number] Amaya Guo) [facility] [address] [place] [address] 07/18/2012 19:08:12 07/19/2012 13:17:25 [id number] Amaya Guo) [facility] [address] [place] [address] 05/22/2013 16:22:52 05/23/2013 10:09:02 Feeling nervous 670792836 RF meds, use as directed. Tobacco de pendence syndrome 40877541 Pt unwilling to quit at this time. Cough likely related. Discussed risk of COPD. Benign ess ential hypertension 2282938 Restart meds, check labs. Acute hepatitis C 399160967 check labs. [id number] [facility] [address] [place] [address] 12/15/2013 18:32:26 12/15/2013 19:40:41 Benign essential hypertension 8798278 Check labs, continue meds. Feeling nervous 493272935 RF meds, use as directed. Obesity 849452631 Encour aged healthy diet and exercise. Carpal dorys mellissa syndrome 02504315 Send to specialist . Acute hepatitis C 739054298 check labs. [id number] Essence Knowles, DO [facility] [address] [facility] [place] [address] 01/02/2014 10:53:17 01/02/2014 15:51:25 Osteopenia 893240821 Due for DEXA scan, ordered. Tobacco de pendence syndrome 62396549 Pt unwilling to quit at this time. Discussed risk of COPD. [id number] Bess Oh [facility] [address] [facility] [place] [address] 03/19/2014 15:04:03 03/19/2014 15:32:34 Influenza vaccine needed 1512842133 106 Asthma 103659329 RF inhaler, using occasional ly. Discussed asthma action plan. [id number] Carolin Gonzalez,[facility] [address] [facility] [place] [address] 05/10/2015 15:37:23 05/11/2015 11:24:05 Asthma 160227103 J45.909 Inhaler prn wheeze Benign ess ential hypertension 9451496 I10 continue Lisinopril /HTTZ; monitor BP Tobacco de pendence syndrome 79373064 F17.290 ASHLINE.OR G to assist with cessation Influenza vaccine needed 0739837610 106 Z23 Mixed anxi ety and depressive disorder 133074765 F41.8 needs follow-up with psych; discuss combinatio n of Lorazepam and pain medication s can cause excessive sedation Osteopenia 210956002 M85 .80 Degenerati on of lumbar intervertebral disc 41490757 M51.36 Continue PM follow-up [id number] Kateryna Gertrude [facility] [address] [facility] [place] [address] 07/13/2015 15:34:17 07/14/2015 12:42:51 Cigarette smoker 90005413 F17.210 Discuss triggers - Patch to help quit - start 21 mg/day then decrease to 14 mg/day - no smoking while on patch Mixed anxi ety and depressive disorder 257163157 F41.8 Discuss need for psych referral - OK refill Lorazepam - avoid using daily - can develop tolerance Benign ess ential hypertension 4328639 I10 continue Lisinopril /HTTZ; monitor BP [id number] Barby Rogel MD [facility] [address] [facility] [place] [address] 05/15/2016 17:34:06 05/15/2016 19:08:03 Shoulder joint pain 161412572 M25.511 ref to Ortho.outs bonita records reviewed.O n chronic opioids. [id number] Radha Mcmahon, DO [facility] [address] [facility] [place] [address] 08/18/2016 19:13:26 08/21/2016 03:16:32 Nicotine dependence 45541935 F17.210 Quitting smoking including medication s options discussed, risks and benefits discussed. Diarrhea 09292581 R19.7 due to intoleranc e to water intake, advised ER for IV fluids. OK to take pepto bismol, imodium, and zofran for s/sx control post-ER visit with close f/u 3-5 days for persisting s/sx. Nausea 214309747 R11.0 ok for PRN zofran Benign ess ential hypertension 4345706 I10 stable; avoid medication s until dehydratio n resolved. [id number] ASHTYN Dyer [facility] [address] [facility] [place] [address] 08/06/2017 16:20:46 08/06/2017 21:19:04 Benign essential hypertension 8124138 I10 Lisinopril to 40 mg daily ; monitor BP - ideally < 140/90 Asthma 297613193 J45.90 9 Inhaler prn wheeze Cigarette smoker 7675270 7 F17.210 Discuss triggers - Patch to help quit - start 7 mg/day - no smoking while on patch Chronic pain syndrome 37 6860353 G89.4 seen by pain management Degenerati on of lumbosacral intervertebral disc 03817297 M51.37 seen by pain management ; epidural helping Increased frequency of urination 797884290 R35.0 recheck labs Viral screening 91050678 4 Z11.59 Screening mammography 24 280876 Z12.31 Visual disturbance 45053 001 H53.9 referral submitted Administra tion of viral vaccine 23877639 Z23 Mild memor y disturbance 690785456 R41.3 reported - follow-up in 1 month for further testing Chronic back pain 159699 002 M54.12 seen by pain management ; epidural helping Long-term current use of opiate analgesic drug 4370167010 68845 Z79.891 seen by pain management ; weaning off patch [id number] [facility], [facility] [address] [facility] [place] [address] 02/11/2018 16:01:06 02/11/2018 21:36:59 Overweight 740622812 Z68.27 food diary- DASH diet - silver sneakers for exercise Degenerati on of lumbar intervertebral disc 88653766 M51.[address] Torrez for epidural injections Chronic pain syndrome 37 7175780 G89.4 seen by pain management Cigarette smoker 6265229 7 F17.210 Discuss triggers - Intermitte nt palpitations 900171975 R00.[address] referral Benign ess ential hypertension 8743278 I10 Lisinopril to 40 mg daily + add HCTZ ; monitor BP - ideally < 140/90 Malaise and fatigue 2717 03404 R53.83 recheck labs History of hepatitis C 3368797710 9101 Z86.19 virus cleared Screening for malignant neoplasm of colon 233855148 Z12.11 [id number] MD kirstin Montero_lluvia delarosa e cardiolog y [address] [place] [address] 06/06/2018 16:55:47 06/10/2018 16:39:57 [id number] MD sravanthi Montero e cardiolog y [address] [place] [address] 06/19/2018 09:21:20 06/19/2018 10:16:22 [id number] [facility] [address] [address] 09/02/2018 16:58:51 09/03/2018 09:16:52 Obesity 277455437 E66.9 Z68.31 discuss weight gain;Diet: 1800 Calories Low Glycemic Index DietExerci se: Work up to 30 min 5x/week as tolerated Depression screening 171 609346 Z13.89 see PQH-9 result in body of chart Screening Negative Benign ess ential hypertension 8994595 I10 BP elevated today - increased pain and off metoprolol - Lisinopril to 40 mg daily + resume metoprolol - monitor BP - ideally < 140/90 Cigarette smoker 2483164 7 F17.210 Discuss triggers - decreasing smoking - hoping to quit Long-term current use of opiate analgesic drug 7448915833 42602 Z79.891 seen by pain management ; Chronic pain syndrome 37 8554556 G89.4 OK to resume Topamax seen by pain management Degenerati on of lumbar intervertebral disc 84846933 M51.36 epidural injections done - pain management seen Screening for malignant neoplasm of colon 314840869 Z12.11 Osteopenia 118589460 M85 .80 check labs Blood gluc ose outside reference range 182297179 R73.09 check labs Gastroesop hageal reflux disease 636429329 K21.9 stable Mammography abnormal 168 015118 R92.8 [id number] [facility], [facility] and [address] [facility] [address] [address] [address] [place] [address] 11/12/2018 15:01:58 11/12/2018 18:51:23 Benign essential hypertension 9293273 I10 BP elevated today Lisinopril 40 mg daily + metoprolol 50 mg - monitor BP - ideally < 140/90 Obesity 079564324 Z68.31 Diet: 1800 Calories Low Glycemic Index Diet Exercise: Work up to 30 min 5x/week as tolerated Asthma 598977197 J45.90 9 aerosol Inhaler prn wheeze Chronic pain syndrome 37 3595477 G89.4 increase Topamax 100 mg BID - seen by pain management Long-term current use of opiate analgesic drug 1433847682 57523 Z79.891 seen by pain management ; Cigarette smoker 5952341 7 F17.210 Discuss triggers - decreasing smoking - hoping to quit Degenerati on of lumbosacral intervertebral disc 06805651 M51.37 seen by pain management - needs transfer to [place] - Pain management tomorrow Spinal jefe nosis in cervical region 96808464 M48.02 per MRI done at pain management Lumbar post-laminectomy syndrome 624757951 M96.1 Pain management follow-up [id number] [facility], [facility] [address] [facility] [address] [place] [address] 11/29/2021 17:04:20 11/30/2021 06:58:32 Acute injury of kidney 9111566881 0899921 N17.9 recheck labs - good fluid intake - recheck labs today Rhabdomyolysis 845113014 M62.82 good fluid intake Benign ess ential hypertension 3011762 I10 amlodipine 5 mg daily in hospital but was on Metoprolol and lisinopril in [place] Acute non- ST segment elevation myocardial infarction 353177265 I21.4 ASA daily Chronic pain syndrome 37 7218599 G89.4 Topamax 50 mg BID - referral to pain management - asking about RX for pain meds but instructed that needs to get from pain management Ex-cigarette smoker 2810 04655 Z87.891 Just quit - stay off smoking Body mass index 20-24 - normal 961581773 Z68.20 [id number] [facility], [facility] and [address] [facility] [address] [place] [address] 12/15/2021 12:22:05 12/16/2021 08:34:45 Tendinitis of right shoulder 9066278924 203013 M75.91 PT referral submitted Chronic pain syndrome 37 1583026 G89.4 Duloxetine daily - Topamax 50 mg BID - has referral to pain management Asthma 163756026 J45.90 9 Inhaler prn wheeze- ok to resume Montelukas t Ex-cigarette smoker 2810 70159 Z87.891 Just quit - stay off smoking Infection of skin 406497 000 L08.9 keep clean with soap and water and keep dry - OK for Mupirocin to edge of left foot abrasion Acute non- ST segment elevation myocardial infarction 764630635 I21.4 ASA daily -metoprolo l - low dose lisinopril - cardiology referral discussed Benign ess ential hypertension 2135087 I10 amlodipine with Metoprolol and lisinopril Depression screening 171 767125 Z13.31 see [facility]-9 result in body of chart Screening Negative [id number] MD KIRSTIN Villanueva[facility] Card[facility] - [place] [address] [place] [address] 01/11/2022 16:24:26 01/11/2022 17:30:02 Acute non-ST segment elevation myocardial infarction 373716404 I21.4 He has been diagnosed with a [...] left foot pain Benign ess ential hypertension 3328752 I10 Blood pressure is controlled on current treatment she is on lisinopril 10 mg and Toprol 25 mg Blood gluc ose outside reference range [id number] R73.09 [id number] MD KIRSTIN [facility] [place] [address] [place] [address] 02/21/2022 10:08:23 02/21/2022 14:16:00 Acute non-ST segment elevation myocardial infarction [id number] I21.4 He has been diagnosed with a [...] treadmill because of her left foot pain [id number] [facility] AMG_Kierl and [address] [facility] [address] [facility] [address] 03/06/2022 17:54:38 03/07/2022 23:28:20 Normal weight 58012311 Z68.23 Liver func tion tests outside reference range 111983408 R94.5 denies alcohol use - discuss possible causes Chronic pain syndrome 37 6055650 G89.4 Duloxetine daily - Topamax 50 mg BID - pain management seen Degenerati on of lumbar intervertebral disc 49749955 M51.36 OK for steroid pack - epidural injections tried - pain management seen Lumbar post-laminectomy syndrome 096686604 M96.1 OK for scooter - Pain management follow-up Mixed anxi ety and depressive disorder 051958163 F41.8 psych referral - discuss counseling Cigarette smoker 7615385 7 F17.210 Discuss triggers - try to decrease smoking Benign ess ential hypertension 8106591 I10 lisinopril 10 mg daily Depression screening 171 085416 Z13.31 see PQH-9 result in body of chart Screening Positive: Overall Plan discussed with Pt [id number] Mary Bolivar, ASHTYN AMG_Kierl and [address] [facility] [address] [facility] [place] [address] 05/11/2022 15:06:18 05/12/2022 06:02:02 Depression screening 880206222 Z13.31 see PQH-9 result in body of chart Screening Negative Cigarette smoker 2635861 7 F17.210 Discuss triggers - try to decrease smoking Degenerati on of lumbar intervertebral disc 21538315 M51.36 epidural injections tried - pain management seen - care coordinato r referral Long-term current use of opiate analgesic drug 4234343032 33514 Z79.891 seen by pain management ; Spinal jefe nosis in cervical region 20880483 M48.02 per MRI done at pain management Basal cell carcinoma of skin 126952032 C44.91 DERM referral Lumbago with sciatica 20 3764305 M54.42 OK for steroid injection today to help with inflammati on Lack of ac cess to transportation 285896584 Z59.82 OK for transport assistance Health Concerns Section Related Observation LastModified by Organization Detai ls LastModified Time None Recorded Concern Status LastModified by Organization Details LastModified Time None Recorded Advance Directives Directive N: Payers Encounter Date Sequence Insurance Name Policy Number Policy Crawley Covered Member ID Crawley Member ID Guarantor Name 12/15/2021 1 [facility] - DUAL ELIGIBLE (MEDICARE REPLACEMENT/A DVANTAGE - HMO) [facility] Sangita Umana [id number] Sangita Umana 12/15/2021 2 [facility] (MEDICAID REPLACEMENT - HMO) Sangita Umana [id number] Sangita Umana 01/11/2022 1 [facility] - DUAL ELIGIBLE (MEDICARE REPLACEMENT/A DVANTAGE - HMO) [facility] Sangita Umana [id number] Sangita Umana 01/11/2022 2 [facility] (MEDICAID REPLACEMENT - HMO) Sangita Umana [id number] Sangita Umana 02/21/2022 1 [facility] - DUAL ELIGIBLE (MEDICARE REPLACEMENT/A DVANTAGE - HMO) FRANCA Umana [id number] Sangita Umana 02/21/2022 2 [facility] (MEDICAID REPLACEMENT - HMO) Sangita Umana [id number] Sangita Umana 03/06/2022 1 [facility] - DUAL ELIGIBLE (MEDICARE REPLACEMENT/A DVANTAGE - HMO) [facility] Sangita Umana [id number] Sangita Umana 03/06/2022 2 [facility] (MEDICAID REPLACEMENT - HMO) Sangita Umana [id number] Sangita Umana 05/11/2022 2 [facility] (MEDICAID REPLACEMENT - HMO) Sangita Umana [id number] Sangita Umana 05/11/2022 1 [facility] - DUAL ELIGIBLE (MEDICARE REPLACEMENT/A DVANTAGE - HMO) [facility] Sangita Umana [id number] Sangita Umana Notes Date Note Type Note [...] muscle relaxer helpingLabs done today ASHTYN Dyer [address], [place], [address], [facility] 12/15/2021 15:34:55 01/11/2022 text/html This is a [...] [place] [address], [place], [address], [facility] 01/11/2022 17:02:02 03/06/2022 text/html review labs - wa s not fastingless dessert and more natural foodsno alcohol - in AAhair thinningseen by pain specialist - epidural scheduled - steroid pack tried - sharp stabbing pain on lumbar back - pinching painhaving issues with transportation Mary Bolivar, [employer] [address], [place], [address], [facility] 03/06/2022 21:27:33 05/11/2022 text/html [facility] - HTNReport [...] moles checked - back mole getting larger [facility], [employer] [address], [place], [address], [facility] - [facility] 05/11/2022 20:05:50 OBGyn Episode No OBEpisode recorded.
--- OUTSIDE RECORDS SUMMARY | 2024-08-04 15:47 | XMS_ITS | Clinical Summary ---
Author Organization [facility] Address [address] [place] [address] Care Team Providers Care Sales Contract Administrator Name Role Phone Zainab Kaiser Primary Care Provider [phone] Source Comments PLEASE NOTE, if this patient [...] DAILY NEEDED FOR PAIN 09/17/19 24 Active budesonide-formote roL (SYMBICORT) 160-4.5 mcg/actuation inhaler INHALE 2 PUFFS [...] by mouth once daily 08/21/19 24 Active ipratropium-albute roL (DUONEB) 0.5 mg-3 mg(2.5 mg base)/3 mL nebulizer solution INHALE 1 AMPULE USING A NEBULIZER EVERY 6 HOURS NEEDED FOR WHEEZING OR SHORTNESS OF BREATH 10/03/19 24 Active MISCELLANEOUS MEDICAL SUPPLY MISCIndications:De xtroscoliosis of thoracolumbar spine,Osteoarthrit is of thoracic spine, unspecified spinal osteoarthritis complication status,Lumbar spondylosis,Osteoa rthritis of hip, unspecified laterality, unspecified osteoarthritis type,DDD (degenerative disc disease), cervical,Cervical stenosis of spine Rolator walker with a seat and storage. Dx: Degenerative disc disease, cervical, and osteoarthritis of multiple joints including lumbar. Duration: lifetime 1 Each 11/09/19 24 Active acetaminophen (TYLENOL 8 HOUR) 650 mg CR tabletIndications: DDD (degenerative disc disease), cervical Take 1 Tablet by mouth every 8 (eight) hours as needed for pain 30 Tablet 11/14/19 24 Active tiZANidine (ZANAFLEX) 2 mg tabletIndications: Pain management Take 1 Tablet by mouth once daily NEEDED FOR MUSCLE SPASMS!! 30 Tablet 06/03/19 25 Active gabapentin (NEURONTIN) 100 mg capsuleIndications :Osteoarthritis of thoracic spine, unspecified spinal osteoarthritis complication status,DDD (degenerative disc disease), cervical,Osteoarth ritis of hip, unspecified laterality, unspecified osteoarthritis type Take 1 Capsule by mouth 3 (three) times daily NEEDED FOR SEVERE PAIN!! 90 Capsule 2 07/03/19 25 Active Active Problems Problem Noted Date Diagnosed Date Lumbar spondylosis 11/09/2023 Osteoarthritis of thoracic spine 11/09/2023 Primary hypertension 11/09/2023 Chronic obstructive pulmonary disease ([facility]) 11/09/2023 Chronic bilateral back pain 11/09/2023 Major depressive disorder 11/09/2023 Stage 3 chronic kidney disease ([facility]) 024 ISSAC (generalized anxiety disorder) 11/09/2023 Osteoarthritis of hip 11/09/2023 DDD (degenerative disc disease), cervical 2023 Cervical stenosis of spine 11/09/2023 Encounters Date Type Department Care Team Description 06/09/2024 3:40 PM EST Office Visit [address] [address] Zainab Kaiser PA Pain management [...] f 2) 2007 Bone Density Screening 2022 Dpo-[id number] (1 - season) 2023 Imm-Influenza (#1) 2023 Depression Monitoring [...] unspecified whether stage 3a or 3b CKD ([facility] from Last 3 Months or Most Recently Relevant to Health Maintenance Results * REFERRAL TO ORTHOPEDICS (06/11/2024 3:00 AM EST) 06/11/2024 3:00 AM EST Zainab JAMES REFERRAL Final Result * (ABNORMAL) COMPREHENSIVE METABOLIC PANEL (11/22/2023 4:09 PM EDT) GLUCOSE 82 65 - 99 mg/dL [facility] Comment: ?Fasting reference interval UREA NITROGEN (BUN) 27(H) 7 - 25 mg/dL [facility] CREATININE (blood) 1.57(H) 0.50 - 1.05 mg/dL [facility] EGFR 36(L) > OR = 60 mL/min/1. 73m2 [facility] BUN/CREATININE RATIO 17 6 - 22 (calc) [facility] SODIUM 138 135 - 146 mmol/L [facility] POTASSIUM 4.2 3.5 - 5.3 mmol/L [facility] CHLORIDE 102 98 - 110 mmol/L [facility] CARBON DIOXIDE 28 20 - 32 mmol/L [facility] CALCIUM 10.1 8.6 - 10.4 mg/dL [facility] PROTEIN, TOTAL 7.4 6.1 - 8.1 g/dL [facility] ALBUMIN 4.9 3.6 - 5.1 g/dL [facility] GLOBULIN 2.5 1.9 - 3.7 g/dL (calc) [facility] ALBUMIN/GLOBULI N RATIO 2.0 1.0 - 2.5 (calc) [facility] BILIRUBIN, TOTAL 0.7 0.2 - 1.2 mg/dL [facility] ALKALINE PHOSPHATASE 57 37 - 153 U/L [facility] AST 23 10 - 35 U/L [facility] ALT 18 6 - 29 U/L [facility] Blood Blood / Unknown 11/22/2023 4 :09 PM EDT 11/22/2023 4:09 PM EDT Narrative [facility] - 11/23/2023 10:52 AM EDT SPLIT 11/22/2023 FROM [id number] Zainab JAMES LAB - BLOOD DRAW Final Result [facility] [address] [address], [employer] [facility] [address] [place] [address] from Last 3 Months or Most Recently Relevant to Health Maintenance Insurance [place] Care Teams Sales Contract Administrator Relationship Specialty Start Date End Date Zainab Kaiser PA [facility] [place] [address] PCP - General Primary Care 09/14/23
--- OUTSIDE RECORDS SUMMARY | 2024-08-04 15:47 | XMS_ITS | Data Portability ---
Author Organization [facility] MARY Parks Address [address] [place] [address] Care Team Providers Care Hides And Skins Colorer Name Role Phone MARY ESCOTO Primary Care [...] By Organization Details Last Modified Time 08/24/2022 [id number] learning about healthy weight Not available 08/24/2022 [...] lumbar MBB/RFA Not available 08/24/2022 16:51:57 09/12/2022 [id number] We will rereques t records from prior [...] mg/dL 20 - 400 Not Available [facility] [address] [place] [address], [place], [address], 08/25/2022 22:53:13 08/25/19 23 08/25/2022 VALID ITY pH Normal 4.0 - 9.5 Not Available [facility] [address] [place] [address], [place], [address], 08/25/2022 22:53:13 08/25/19 23 08/25/2022 VALID ITY specific gravity Normal 1.0030 - 1.0350 normal Not Available [facility] [address] [place] [address], [place], [address], 08/25/2022 22:53:13 08/25/19 23 08/25/2022 UDT SCREE N opi Neg Not Available [facility] [address] [place] [address], [place], [address], 08/25/2022 22:53:13 08/25/19 23 08/25/2022 UDT SCREE N THC Pos Not Available [facility] [address] [place] [address], [place], [address], 08/25/2022 22:53:13 08/25/19 23 08/25/2022 UDT SCREE N fentanyl Neg Not Available [facility] [address] [place] [address], [place], [address], 08/25/2022 22:53:13 08/25/19 23 08/25/2022 UDT SCREE N kaur Neg Not Available [facility] [address] [place], [place] [address], [place], [address], 08/25/2022 22:53:13 08/25/19 23 08/25/2022 UDT SCREE N madisyn Neg Not Available [facility] [address] [place], [place] [address], [place], [address], 08/25/2022 22:53:13 08/25/19 23 08/25/2022 UDT SCREE N pcp Neg Not Available [facility] [address] [place], [place] [address], [place], [address], 08/25/2022 22:53:13 08/25/19 23 08/25/2022 UDT SCREE N mdn Neg Not Available [facility] [address] [place], [place] [address], [place], [address], 08/25/2022 22:53:13 08/25/19 23 08/25/2022 UDT SCREE N oxy Pos Not Available [facility] [address] [place], [place] [address], [place], [address], 08/25/2022 22:53:13 08/25/19 23 08/25/2022 UDT SCREE N bup Neg Not Available [facility] [address] [place] [address], [place], [address], 08/25/2022 22:53:13 08/25/19 23 08/25/2022 UDT SCREE N amp Neg Not Available [facility] [address] [place], [place] [address], [place], [address], 08/25/2022 22:53:13 08/25/19 23 08/25/2022 UDT SCREE N ETOH Neg <50.0 Not Available [facility] [address] [place] [address], [place], [address], 08/25/2022 22:53:13 08/25/19 23 08/28/2022 ALCOH OL BIOMA RKERS etg Negati ve NG/mL <500 Not Available [facility] [address] [place] [address], [place], [address], 09/01/2022 14:09:59 08/25/19 23 08/28/2022 ALCOH OL BIOMA RKERS ets Negati ve NG/mL <[address] [facility] [address] [place] [address], [place], [address], 09/01/2022 14:09:59 08/25/19 23 08/28/2022 AMPHE TAMIN ES methamphetam ine Negati ve NG/mL <100 Not Available [facility] [address] [place] [address], [place], [address], 09/01/2022 14:09:59 08/25/19 23 08/28/2022 AMPHE TAMIN ES amphetamine Negati ve NG/mL <100 Not Available [facility] [address] [place] [address], [place], [address], 09/01/2022 14:09:59 08/25/19 23 08/28/2022 AMPHE TAMIN ES phentermine Negati ve NG/mL <100 Not Available [facility] [address] [place] [address], [place], [address], 09/01/2022 14:09:59 08/25/19 23 08/28/2022 VIC TURAT ES butalbital Negati ve NG/mL <100 Not Available [facility] [address] [place] [address], [place], [address], 09/01/2022 14:10:00 08/25/19 23 08/28/2022 VIC TURAT ES phenobarbita l Negati ve NG/mL <100 Not Available [facility] [address] [place] [address], [place], [address], 09/01/2022 14:10:00 08/25/19 23 08/28/2022 BENZO DIAZE PINES alprazolam Negati ve NG/mL <[address] [facility] [address] [place] [address], [place], [address], 09/01/2022 14:10:00 08/25/19 23 08/28/2022 BENZO DIAZE PINES hydroxyalpra zolam Negati ve NG/mL <[address] [facility] [address] [place] [address], [place], [address], 09/01/2022 14:10:00 08/25/19 23 08/28/2022 BENZO DIAZE PINES chlordiazepo xide Negati ve NG/mL <20 Not Available [facility] [address] [place] [address], [place], [address], 09/01/2022 14:10:00 08/25/19 23 08/28/2022 BENZO DIAZE PINES clonazepam Negati ve NG/mL <100 Not Available [facility] [address] [place] [address], [place], [address], 09/01/2022 14:10:00 08/25/19 23 08/28/2022 BENZO DIAZE PINES aminoclonaze bisi Negati ve NG/mL <100 Not Available [facility] [address] [place] [address], [place], [address], 09/01/2022 14:10:00 08/25/19 23 08/28/2022 BENZO DIAZE PINES diazepam Negati ve NG/mL <20 Not Available [facility] [address] [place] [address], [place], [address], 09/01/2022 14:10:00 08/25/19 23 08/28/2022 BENZO DIAZE PINES nordiazepam Negati ve NG/mL <40 Not Available [facility] [address] [place] [address], [place], [address], 09/01/2022 14:10:00 08/25/19 23 08/28/2022 BENZO DIAZE PINES temazepam Negati ve NG/mL <50 Not Available [facility] [address] [place] [address], [place], [address], 09/01/2022 14:10:00 08/25/19 23 08/28/2022 BENZO DIAZE PINES oxazepam Negati ve NG/mL <50 Not Available [facility] [address] [place] [address], [place], [address], 09/01/2022 14:10:00 08/25/19 23 08/28/2022 BENZO DIAZE PINES lorazepam Negati ve NG/mL <50 Not Available [facility] [address] [place] [address], [place], [address], 09/01/2022 14:10:00 08/25/19 23 08/28/2022 BENZO DIAZE PINES triazolam Negati ve NG/mL <20 Not Available [facility] [address] [place] [address], [place], [address], 09/01/2022 14:10:00 08/25/19 23 08/28/2022 BENZO DIAZE PINES hydroxytriaz olam Negati ve NG/mL <20 Not Available [facility] [address] [place] [address], [place], [address], 09/01/2022 14:10:00 08/25/19 23 08/28/2022 BUPRE NORPH INE buprenorphin e Negati ve NG/mL <5 Not Available [facility] [address] [place] [address], [place], [address], 09/01/2022 14:10:01 08/25/19 23 08/28/2022 BUPRE NORPH INE norbuprenorp giovana Negati ve NG/mL <[address] [facility] [address] [place] [address] [address], [place], [address], 09/01/2022 14:10:01 08/25/19 23 08/28/2022 GEOVANI SAUNDERS DS, NATTIFFANY AL THC-cooh 134 NG/mL <25 high Not Available [facility] [address] [place] [address] [address], [place], [address], 09/01/2022 14:10:01 08/25/19 23 08/28/2022 COCAI NE benzoylecgon ine Negati ve NG/mL <50 Not Available [facility] [address] [place] [address] [address], [place], [address], 09/01/2022 14:10:02 08/25/19 23 08/28/2022 FENTA NYLS fentanyl Negati ve NG/mL <[address] [facility] [address] [place], [place] [address], [place], [address], 09/01/2022 14:10:02 08/25/19 23 08/28/2022 FENTA NYLS norfentanyl Negati ve NG/mL <8 Not Available [facility] [address] [place] [address] [address], [place], [address], 09/01/2022 14:10:02 08/25/19 23 08/28/2022 HEROI N METAB OLITE 6-COLLIN Negati ve NG/mL <[address] [facility] [address] [place] [address] [address], [place], [address], 09/01/2022 14:10:03 08/25/19 23 08/28/2022 METHA DONE methadone Negati ve NG/mL <[address] [facility] [address] [place] [address] [address], [place], [address], 09/01/2022 14:10:04 04/2708/28/2022 METHA DONE EDDP Negati ve NG/mL <[address] [facility] [address] [place] [address], [place], [address], 09/01/2022 14:10:04 08/25/19 23 08/28/2022 METHY LENED IOXYA MPHET AMINE S MDMA Negati ve NG/mL <[address] [facility] [address] [place] [address], [place], [address], 09/01/2022 14:10:04 08/25/19 23 08/28/2022 OPIAT ES codeine Negati ve NG/mL <50 Not Available [facility] [address] [place] [address], [place], [address], 09/01/2022 14:10:04 08/25/19 23 08/28/2022 OPIAT ES dihydrocodei ne Negati ve NG/mL <[address] [facility] [address] [place], [place] [address], [place], [address], 09/01/2022 14:10:04 08/25/19 23 08/28/2022 OPIAT ES morphine Negati ve NG/mL <[address] [facility] [address] [place] [address] [address], [place], [address], 09/01/2022 14:10:04 08/25/19 23 08/28/2022 OPIAT ES hydrocodone Negati ve NG/mL <[address] [facility] [address] [place], [place] [address], [place], [address], 09/01/2022 14:10:04 08/25/19 23 08/28/2022 OPIAT ES hydromorphon e Negati ve NG/mL <[address] [facility] [address] [place], [place] [address], [place], [address], 09/01/2022 14:10:04 08/25/19 23 08/28/2022 OPIOI DS AND OPIAT E ANALO GS dextromethor luke Negati ve NG/mL <100 Not Available [facility] [address] [place] [address], [place], [address], 09/01/2022 14:10:05 08/25/19 23 08/28/2022 OPIOI DS AND OPIAT E ANALO GS levorphanol Negati ve NG/mL <5 Not Available [facility] [address] [place] [address], [place], [address], 09/01/2022 14:10:05 08/25/19 23 08/28/2022 OPIOI DS AND OPIAT E ANALO GS naloxone Negati ve NG/mL <10 Not Available [facility] [address] [place] [address], [place], [address], 09/01/2022 14:10:05 08/25/19 23 08/28/2022 OXYCO DONE oxycodone 125 NG/mL <50 high Not Available [facility] [address] [place] [address], [place], [address], 09/01/2022 14:10:06 08/25/19 23 08/28/2022 OXYCO DONE noroxycodone 859 NG/mL <25 high Not Available [facility] [address] [place] [address], [place], [address], 09/01/2022 14:10:06 08/25/19 23 08/28/2022 OXYCO DONE oxymorphone 142 NG/mL <50 high Not Available [facility] [address] [place] [address], [place], [address], 09/01/2022 14:10:06 08/25/19 23 08/28/2022 SKELE BARRIE MUSCL E RELAX ANTS carisoprodol Negati ve NG/mL <100 Not Available [facility] [address] [place] [address], [place], [address], 09/01/2022 14:10:06 08/25/19 23 08/28/2022 SKELE BARRIE MUSCL E RELAX ANTS meprobamate Negati ve NG/mL <[address] [facility] [address] [place] [address] , [place], [address], 09/01/2022 14:10:06 08/25/19 23 08/28/2022 TAPEN TADOL tapentadol Negati ve NG/mL <[address] [facility] [address] [place] [address] , [place], [address], 09/01/2022 14:10:07 08/25/19 23 08/28/2022 TRAMA DOL tramadol Negati ve NG/mL <100 Not Available [facility] [address] [place] [address] , [place], [address], 09/01/2022 14:10:07 08/25/19 23 08/28/2022 TRAMA DOL O-desmethylt ramadol Negati ve NG/mL <100 Not Available [facility] [address] [place] [address] , [place], [address], 09/01/2022 14:10:07 Result Notes None recorded. Problems Name Problem SNOMED Code Status Onset Date Resolution Date Notes Provider Name and Address Organization Details Recorded Time Chronic pain 98914499 Active 2022 Bruce Rich DO [address] [place] [address], [facility], [place], [address], [facility] 3 15:50:14 Lumbar post-laminecto my syndrome 030210607 Active 2022 Bruce Rich DO [address] [place] [address], [address], [place], [address], [facility] 3 15:50:25 Degeneration of cervical intervertebral disc 68874099 Active 2022 Bruce Rich DO [address] [place] [address], [address], [place], [address], [facility] 3 15:50:34 Lumbar spondylosis 635887854 Active 2022 [place] [address], [address], [place], [address], [facility] 3 15:51:34 Problem Notes None recorded. [...] Updated DateTime 08/24/2022 147.32 cm 26.1 kg/m2 49100.05 g 98 [degF] Mary Anne Han [facility] 08/24/2022 16:56:22 Date Recorded Body height Body mass index (BMI) Body weight Body temperature Provider Name and Address Organization Details Last Updated DateTime 09/12/2022 147.32 cm 26.1 kg/m2 10058.05 g 98 [degF] Mary Anne Han [facility] 09/12/2022 13:49:07 Social History Question Answer Notes LastModified by Organizat ion Details LastModified Time Tobacco Smoking Status Current Every Day Smoker Mary Anne echeverria [facility] 08/24/2022 15:31:42 What Is Your Level Of Alcohol Consumption? None [email or web address] Information not available 08/24/2022 How Much Tobacco Do You Chew? None [email or web address] Information not available 08/24/2022 What Is Your Occupation? Retired [email or web address] Information not available 08/24/2022 Last Dental Exam 10/07/2018 [email or web address] Informat ion not available 08/24/2022 Are You On Disability Or Applying For It? Yes Information not available 08/24/2022 Marital Status [email or web address] Informatio n not available 08/24/2022 Employment Status Disabled [email or web address] Informa tion not available 08/24/2022 Last Day Of Work 06/03/2014 [email or web address] Informat ion not available 08/24/2022 Currently Receiving Or Applying For Disability [email or web address] Information not available 08/24/2022 Illicit Drug Use? No [email or web address] Informa tion not available 08/24/2022 What Was The Date Of Your Most Recent Tobacco Screening? 09/12/2022 [email or web address] Information not available 09/12/2022 Do You Or Have You Ever Used Smokeless Tobacco? Never Used Smokeless Tobacco Information not available 08/24/2022 How Much Tobacco Do You Smoke? 0.25 PPD [email or web address] Information not available 08/24/2022 Do You Use Any Illicit Or Recreational Drugs? No [email or web address] Information not available 08/24/2022 Has Tobacco Cessation Counseling Been Provided? Yes [email or web address] Information not available 09/12/2022 On What Date Was Tobacco Cessation Counseling Provided? 09/12/2022 [email or web address] Information not available 09/12/2022 Sex: Unknown Functional [...] SNOMED-CT Code Diagnosis ICD10 Code Diagnosis Note [id number] Bruce Rich DO [facility] [address] [address] 08/24/2022 15:16:08 08/24/2022 16:43:34 Chronic pain 07850754 G89.29 Degenerati on of cervical intervertebral disc 51826001 M50.30 Lumbar post-laminectomy syndrome 936827114 M96.1 Lumbar spondylosis 89185 0009 M47.896 Increased body mass index 50214940 E66.3 Patient was educated about healthy weight Tobacco us e cessation education 868402803 Z71.6 [id number] Bruce Rich DO [facility] [address] [address] 09/12/2022 13:36:19 09/12/2022 14:25:47 Lumbar spondylosis 549814453 M47.896 Degenerati on of cervical intervertebral disc 37042996 M50.30 Lumbar post-laminectomy syndrome 321800048 M96.1 Chronic pain 94827339 G8 9.29 Health Concerns Section Related Observation LastModified by Organization Detai ls LastModified Time None Recorded Concern Status LastModified by Organization Details LastModified Time None Recorded Advance Directives Directive None Recorded Payers Encounter Date Sequence Insurance Name Policy Number Policy Crawley Covered Member ID Crawley Member ID Guarantor Name 08/24/2022 1 [facility] - DUAL ELIGIBLE (MEDICARE REPLACEMENT/A DVANTAGE - HMO) [facility] Sangita Umana [id number] Sangita Umana 09/12/2022 1 [facility] - DUAL ELIGIBLE (MEDICARE REPLACEMENT/A DVANTAGE - HMO) [facility] Sangita Umana [id number] Sangita Umana Notes Date Note Type Note [...] outside pain group since moving here from [place]. She completed a set of 3 cervical epidurals as well as several lumbar epidurals with benefit. She states she does not believe she has had injections since the winter. She had been on Belbuca [place] but states the bandage maker has changed since she was here and has caused an increase in pain. She was then transition to Percocet 5 mg and was taking it 3 times daily. She states they have had a change in their providers and she is looking for an outside pain group as they will no longer continue [place] [address] [place] [address], [address], [facility] 08/25/2022 11:39:12 09/12/2022 text/html Lumbar SpineReported [...] [facility] since moving here from [place]. She completed a set of 3 cervical epidurals as well as several lumbar epidurals with benefit. She had been on Belbuca [place] excellent [place] but states the bandage maker has changed since she was here and [...] [place] [address] [facility], [place], [address], [facility] 09/12/2022 14:41:22 OBGyn Episode No OBEpisode recorded.
--- OUTSIDE RECORDS SUMMARY | 2024-08-04 15:47 | XMS_ITS | Continuity of Care Document ---
Author Organization [facility] Address [address] [place] [address] Phone Care Team Providers Care Auger Supervisor Name Role Phone Zainab Guzman MD Unavailable Unavailable Procedures Procedure Date Cancel Fee 1st Occurrence Advance Directives Directive Yes / No Effective Date File Name No Information Encounters Encounter Description Practice Location Reason(s) For Visit Diagnoses Date Provider Providers Copied on Encounter [facility], [address] [place], [id number], [place] tel:[phone] [address] [place] [address] No Information [address] [facility] [place], [id number] , [place]. tel:[phone] Referring Provider: Zainab Guzman, [facility] [place], [address] . tel:[phone] Family History Family Member Type Diagnosis Age [...]
== END 2024-08-04 13:49 | disposition home or self-care (01) ==
LOC: HO.ENCR 13:17
PROVIDERS: PCP Student in an Organized Health Care Education/Training Program; Visit Provider Internal Medicine Endocrinology, Diabetes & Metabolism
DX: M81.0 Age-related osteoporosis without current pathological fracture (principal)
CPT/HCPCS: 99213

== ENCOUNTER → 2024-08-04 13:16 | Outpatient (BNVA) | payer OTHER, SELFPAY | PROVIDERS: PCP Student in an Organized Health Care Education/Training Program; Visit Provider Internal Medicine Endocrinology, Diabetes & Metabolism | DX: M81.0 Age-related osteoporosis without current pathological fracture (principal) | CPT/HCPCS: 99212 ==

== ENCOUNTER 2024-08-22 13:11 | Outpatient (AMB) | payer OTHER, SELFPAY ==
--- NOTE | 2024-08-22 13:14 | A.SPINEOV_ITS ---
Intake Visit Reasons: work up for neck pain Intake Note: Ms. Umana is here today c/o neck pain. Bench Mover Required: No Allergies NSAIDS (Non-Steroidal Anti-Inflamma Adverse Reaction (Mild, Verified 08/22/24 13:43) contraindicated w/ CKD Assessment & Plan Assessment & Plan (1) Cervical disc disorder: Code(s): M50.90 - Cervical disc disorder, unspecified, unspecified cervical region Category: Medical Plan Mrs Umana is here in follow up. She is a patient known to Dr. Casanova from previous evaluation for degenerative lumbar listhesis. She has advanced osteoporosis with a T-score of-3.5. The patient has been recently in the process of getting started on Evenity for this but remains with quite substantial poor bone quality. For now surgery has been put on hold. She comes in today to discuss another issue with her cervical spine. She has had neck pain for years, had been previously followed by a spine doctor in [place]. She has been through conservative treatments including therapy and injections. Her previous MRI done at an outside facility from 2021 report suggests she has severe degenerative disc disease at multiple levels. This was done in 2021 but her symptoms have been getting worse. On my exam there is no focal deficits other than pain and multiple areas of her joints of her arms and legs with movement. Reflexes slightly brisk on the right patella but no clonus in the ankles. I will order a cervical MRI to get an updated set of imaging I will see her back in the office to review. Total amount of time spent in this visit was 20 minutes in discussion of symptoms, lumbar and previous cervical imaging results and subsequent plan of care Shola Casanova MD,PhD [facility] Orders: Orders MR cervical spine wo con Today M50.90 - Cervical disc disorder, unspecified, unspecified cervical region Coding Level of Care Code Est Pt Level 3 (07206) Diagnoses Cervical disc disorder M50.90
--- OUTSIDE RECORDS SUMMARY | 2024-08-22 13:53 | XMS_ITS | Data Portability ---
Author Organization [place] - [facility], autoContract - [facility] Address [address] [place] [address] Care Team Providers Care Fws Faculty Assistant Name Role Phone REBECCA ESCALONA OTHER MARIA [...] By Organization Details Last Modified Time 06/06/2018 [id number] deciding about using medicines to quit smoking [...] telem etry No observ ation record ed. [employer] [address], [place], [address], 06/28/2018 17:37:34 06/24/19 19 [place], echoc ardio gram No observ ation record ed. BARCODE Not Available 2018 18:52:06 Result Notes None recorded. Problems Name Problem SNOMED Code Status Onset Date Resolution Date Notes Provider Name and Address Organization Details Recorded Time Palpitati ons 15410295 Active 2017 Sena Kurt, RMA null, [facility] 8 12:57:03 Obesity 072596074 Active Sena Kurt, RMA null, [facility] 8 12:57:03 Degenerat ion of lumbar intervert ebral disc 18536001 Completed 03/14/2018 Sena Kurt, RMA null, [facility] 8 12:58:14 Visual disturban ce 33961076 Completed 201703/14/2018 Sena Kurt, RMA null, [facility] 8 12:57:44 Degenerat anita joint disease involving multiple joints 662396499 Completed 03/14/2018 Esna Kurt, RMA null, [facility] 8 12:58:34 Intermitt ent palpitati ons 141747995 Active 2017 Sena Kurt, RMA null, [facility] 8 12:57:03 Depressiv e disorder 25073410 Active Sena Kurt, RMA null, [facility] 8 12:57:03 Chronic pain syndrome 159711672 Completed 03/14/2018 Sena Kurt, RMA null, [facility] 8 12:58:43 Mild memory disturban ce 649781046 Completed 201703/14/2018 Sena Kurt, RMA null, [facility] 8 12:58:23 Increased frequency of urination 382568894 Completed 201703/14/2018 Sena Kurt, RMA null, [facility] 8 12:58:27 Carpal tunnel syndrome 06870539 Active Sena Kurt RMA null, [facility] 8 12:57:03 Long-term current use of opiate analgesic drug 329889105159 108 Active 2017 Sena Kurt, RMA null, [facility] 8 12:57:03 Asthma 546389264 Completed 03/14/2018 Sena Kurt, RMA null, [facility] 8 12:58:31 Mixed anxiety and depressiv e disorder 482395175 Completed 03/14/2018 Sena Kurt, RMA null, [facility] 8 12:58:37 Benign essential hypertens ion 7135108 Active Sena Kurt, RMA null, [facility] 8 12:57:03 Shoulder joint pain 604701451 Completed 03/14/2018 Sena Kurt, RMA null, [facility] 8 12:58:47 Cigarette smoker 85676652 Active Sena Kurt, RMA null, [facility] 8 12:57:03 Closed fracture of phalanx of foot 72268648 Completed 03/14/2018 Sena Kurt, RMA null, [facility] 8 12:57:39 Feeling nervous 085441641 Completed 03/14/2018 Sena Kurt, RMA null, [facility] 8 12:57:57 Osteopeni a 824094308 Completed 03/14/2018 Sena Kurt, RMA null, [facility] 8 12:58:01 Overweigh t 400394167 Completed 201703/14/2018 Sena Kurt, RMA null, [facility] 8 12:58:11 Degenerat ion of lumbosacr al intervert ebral disc 36378449 Completed 03/14/2018 Sena Hicks RMA null, [facility] 8 12:57:48 Gastroeso phageal reflux disease 163781335 Active Sena Hicks RMA null, [facility] 8 12:57:03 Menopausa l symptom 97042961 Completed 03/14/2018 Sena Hicks RMA null, [facility] 8 12:58:18 History of hepatitis C 489625957451 Completed 201703/14/2018 Sena Kurt RMA null, [facility] 8 12:57:36 Malaise and fatigue 200398487 Completed 201703/14/2018 Sena Kurt RMA null, [facility] 8 12:58:05 Problem Notes None recorded. Procedures Surgical History Date Name Laterality Status Provider Name and Address Organization Details Recorded Time 06/19/19 19 Echocardiogram completed Nida Reyes [facility] 06/24/2018 17:47:42 Other completed Sena Hicks, ARVINDA [facility] 02/18/2018 10:05:38 Other completed Sena Kurt, ARVINDA [facility] 02/18/2018 10:05:58 Other completed Sena Hicks, RMA [facility] 02/18/2018 10:06:10 Cholecystectomy w/cholang completed Sena Hicks, ARVINDA [facility] 02/18/2018 10:06:30 Tubal Ligation completed ARVIND TapiaA [facility] 02/18/2018 14:35:35 Imaging Results Imaging Date Name Status LastModified by Organization Details LastModified Time 06/06/2018 electrocardiogram completed Informa tion not available 06/06/2018 18:44:44 06/19/2018 US, echocardiogram completed [facility] Inform ation not available 06/19/2018 10:19:56 06/19/2018 cardiac telemetry completed [employer] [address], [place], [address], 06/28/2018 17:37:34 06/24/2018 US, echocardiogram completed BARCODE [...] Updated DateTime 9 152.4 cm 27.7 kg/m2 90625.1 2 g 70 /min 98 % 98 % 122 mm[Hg] 80 mm[Hg] Yohana Song [facility] 9 17:16:31 Social History Question Answer Notes LastModified by Organ[employer] Details LastModified Time Tobacco Smoking Status Current Every Day Smoker Sena Hicks, SUNG juwan, [facility] 02/18/2018 10:04:50 Do You Have An [...] Status Question Answer Note LastModified by Organizat [employer] Details LastModified Time What is your exercise [...] SNOMED-CT Code Diagnosis ICD10 Code Diagnosis Note [id number] [facility] [address] [facility] [place] [address] 05/05/2010 18:12:34 05/05/2010 19:18:30 [id number] Amaya Bullek (Elenita) [facility] [address] [facility] [place] [address] 05/10/2010 17:06:55 05/10/2010 18:50:11 [id number] [facility] [address] [facility] [place] [address] 05/31/2010 18:17:55 05/31/2010 19:23:28 [id number] [facility] [address] [facility] [place] [address] 10/04/2010 17:25:28 10/04/2010 18:04:57 [id number] Amaya Babatunde (Elenita) [facility] [address] [facility] [place] [address] 10/26/2010 15:30:56 10/26/2010 16:47:04 [id number] [facility] [address] [facility] [place] [address] 12/19/2010 19:34:25 12/19/2010 20:13:27 [id number] [facility] [address] [place] [address] 03/17/2011 14:44:01 03/17/2011 15:31:54 [id number] [facility] [address] [place] [address] 06/01/2011 12:28:37 06/01/2011 13:54:09 [id number] Amaya Fronek (Elenita) [facility] [address] [facility] [place] [address] 07/18/2012 19:08:12 07/19/2012 13:17:25 [id number] Amaya Fronek (Elenita) [facility] [address] [facility] [place] [address] 05/22/2013 16:22:52 05/23/2013 10:09:02 [id number] [facility] [address] [facility] [place] [address] 12/15/2013 18:32:26 12/15/2013 19:40:41 [id number] Essence Knowles, DO [facility] [address] [facility] [place] [address] 01/02/2014 10:53:17 01/02/2014 15:51:25 [id number] Bess Oh [facility] [address] [facility] [place] [address] 03/19/2014 15:04:03 03/19/2014 15:32:34 [id number] Carolin Gonzalez CCM A [facility] [address] [facility] [place] [address] 05/10/2015 15:37:23 05/11/2015 11:24:05 [id number] Kateryna Loredo [facility] [address] [facility] [place] [address] 07/13/2015 15:34:17 07/14/2015 12:42:51 [id number] Barby Rogel MD [facility] [address] [facility] [address] 05/15/2016 17:34:06 05/15/2016 19:08:03 [id number] Radha Mcmahon, DO [facility] [address] [facility] [place] [address] 08/18/2016 19:13:26 08/21/2016 03:16:32 [id number] Ashtyn WinstonAPRILP [facility] [address] [place] [address] 08/06/2017 16:20:46 08/06/2017 21:19:04 [id number] [facility] PROPERTY ADMINISTRATOR [facility] [address] [place] [address] 02/11/2018 16:01:06 02/11/2018 21:36:59 [id number] Poonam Quinn MD [facility] [address] [place] [address] 06/06/2018 16:55:47 06/10/2018 16:39:57 Overweight 895279589 E66.3 Diet: 1800 Calories Low Glycemic Diet Exercise: Work up to 30 min 5x/week as tolerated Electrocar diogram abnormal 226587910 R94.31 LVH Intermitte nt palpitations 719868873 R00.2 once per week last few seconds fast and regular for 4 to 5 beats for last 4- 5 yearsTSH normal Essential hypertension 50974554 I10 controlled with treatment Tobacco de pendence syndrome 30556211 F17.784 [id number] Poonam Quinn MD [facility] [place] [facility] [address] [place] [address] 06/19/2018 09:21:20 06/19/2018 10:16:22 Electrocardiogram abnormal 605104384 R94.31 LVH [id number] [facility], PROPERTY ADMINISTRATOR [facility] [address] [address] 09/02/2018 16:58:51 09/03/2018 09:16:52 [id number] Ashtyn WinstonASHTYN [facility] [address] [place] [address] 11/12/2018 15:01:58 11/12/2018 18:51:23 [id number] Ashtynalistair Bolivar, PROPERTY ADMINISTRATOR [facility] [address] [place] [address] 11/29/2021 17:04:20 11/30/2021 06:58:32 [id number] Ashtyn Bolivar, PROPERTY ADMINISTRATOR [facility] [address] [place] [address] 12/15/2021 12:22:05 12/16/2021 08:34:45 [id number] Kai Davis MD [facility] [place] [address] [place] [address] 01/11/2022 16:24:26 01/11/2022 17:30:02 [id number] Kai Davis MD [facility] [address] [place] [address] 02/21/2022 10:08:23 02/21/2022 14:16:00 [id number] Ashtynalistair Bolivar, PROPERTY ADMINISTRATOR [facility] [address] [place] [address] 03/06/2022 17:54:38 03/07/2022 23:28:20 [id number] Ashtyn Bolivar, PROPERTY ADMINISTRATOR [facility] [address] [place] [address] 05/11/2022 15:06:18 05/12/2022 06:02:02 Health Concerns Section Related Observation LastModified by Organization Detai ls LastModified Time None Recorded Concern Status LastModified by Organization Details LastModified Time None Recorded Advance Directives Directive N: Payers Encounter Date Sequence Insurance Name Policy Number Policy Crawley Covered Member ID Crawley Member ID Guarantor Name 06/06/2018 1 [facility] DUAL ELIGIBLE (MEDICARE REPLACEMENT/ ADVANTAGE - HMO) [facility] Sangita Umana [id number] Sangita Umana 06/06/2018 2 [facility] (MEDICAID HMO) Sangita Umana [id number] Sangita Umana 06/19/2018 1 [facility] - DUAL ELIGIBLE (MEDICARE REPLACEMENT/ ADVANTAGE - HMO) [facility] Sangita Grace Dong [id number] Sangita C Dong 06/19/2018 2 [facility] (MEDICAID HMO) Sangita Grace Dong [id number] Sangita Umana Notes Date Note Type Note Provider Name and Address Organization Details Recorded Time 06/06/2018 text/html [facility] - [facility] H PI 1Reported bypatient.Notes:Saqib nieto seen [...] or [place] [address], [place], [address], [facility] 06/06/2018 18:09:31 OBGyn Episode No OBEpisode recorded.
--- OUTSIDE RECORDS SUMMARY | 2024-08-22 13:53 | XMS_ITS | Data Portability ---
Author Organization [place] - [facility], autoContract - [facility] Address [address] [facility] [address] [place] [address] Assessment No assessment recorded. Plan of Treatment Reminders Order Date Submit Date Provider Last Modified By Organization Details Last Modified Time Details Appointments None recorded. Lab culture, urine 011 [place], [address], [address], 3 04:00:47 Referral None recorded. Procedures None recorded. Surgeries None recorded. Imaging None recorded. Medication Orders Bactrim DS 800 mg-160 mg tablet 011 [facility] [id number], [address] , [place], [address], 3 04:00:47 Patient TargetsNo targets recorded. Patient InstructionsNo instructions recorded. Reason for Referral None Reported. Results Created Date Observation Date Name Description Value Unit Range Abnormal Flag Note LastModifiedBy Organization Detail LastModifiedTime 12/20/19 11 12/21/2010 cultu re, urine source urine-voided URINE- VOIDED Not Available [employer] [address], [address], 12/22/2010 03:34:08 12/20/19 11 12/21/2010 cultu re, urine culture, urine order ed test: cultu re,ur ine micro numbe r: [id number] test statu s: final speci men [...] A 1:100 0 dilut ion Not Available [facility] [address], [address], 12/22/2010 03:34:08 Result Notes None recorded. Problems Name Problem SNOMED Code Status Onset Date Resolution Date Notes Provider Name and Address Organization Details Recorded Time Dysuria 63004143 Active Not Available [facility] 01/21/2013 03:02:05 Problem Notes None recorded. Procedures Surgical History Date Name Laterality Status Provider Name and Address Organization Details Recorded Time 8 Hip Surgery completed Not Available [facility] 03/23/20 11 02:44:39 Imaging Results [...] Details Last Updated DateTime 1 154.94 cm 99484.2 5712 g 33.3 kg/m2 98.1 [degF] 66 /min 98 % 98 % 128 mm[Hg] 81 mm[Hg] Amaya Fine (Elenita) [facility] 1 19:46:12 Social History Question Answer Notes [...] Response Liver Disease/Hepatitis Y Urinary Problem Y High Blood Pressure (Hypertension) Y Arthritis Y Blood Disorder Y Osteopenia/Osteoporosis Y Fibromyalgia Y Back/Neck Pain Y Depression Y Spine Disease (Herniated Disc, Scoliosis , Stenosis) Y Gynecological HistoryNo gynecological history recorded. Obstetrics History GPAL:G 0 P 0 0 0 0 Past Encounters Encounter ID Performer Location Encounter Start Date Encounter Closed Date Diagnosis/Indication Diagnosis SNOMED-CT Code Diagnosis ICD10 Code Diagnosis Note [id number] [facility] [address] [place] [address] 05/05/2010 18:12:34 05/05/2010 19:18:30 [id number] Amaya Guo) [facility] [address] [place] [address] 05/10/2010 17:06:55 05/10/2010 18:50:11 [id number] [facility] [address] [place] [address] 05/31/2010 18:17:55 05/31/2010 19:23:28 [id number] [facility] [address] [place] [address] 10/04/2010 17:25:28 10/04/2010 18:04:57 [id number] Amaya Babatunde (Elenita) [facility] [address] [place] [address] 10/26/2010 15:30:56 10/26/2010 16:47:04 [id number] [facility] [address] [facility] [place] [address] 12/19/2010 19:34:25 12/19/2010 20:13:27 [id number] [facility] [address] [place] [address] 03/17/2011 14:44:01 03/17/2011 15:31:54 [id number] [facility] [address] [place] [address] 06/01/2011 12:28:37 06/01/2011 13:54:09 [id number] Amaya Fronek (Elenita) [facility] [address] [place] [address], [place] [address] 07/18/2012 19:08:12 07/19/2012 13:17:25 [id number] Amaya Fronek (Elenita) [facility] [address] [place] [address], [place] [address] 05/22/2013 16:22:52 05/23/2013 10:09:02 [id number] [facility] [address] [place] [address] 12/15/2013 18:32:26 12/15/2013 19:40:41 [id number] Essence Knowles, [facility] [address] [place] [address], [place] [address] 01/02/2014 10:53:17 01/02/2014 15:51:25 [id number] Bess Oh [facility] [address] [place] [address], [place] [address] 03/19/2014 15:04:03 03/19/2014 15:32:34 [id number] Carolin Gonzalez,CCM A [facility] [address] [place] [address], [place] [address] 05/10/2015 15:37:23 05/11/2015 11:24:05 [id number] Kateryna Isabeljanice [facility] [address] [place] [address] 07/13/2015 15:34:17 07/14/2015 12:42:51 [id number] Barby Rogel MD [facility] [address] [place] [address] 05/15/2016 17:34:06 05/15/2016 19:08:03 [id number] Radha Mcmahon, [facility] [address] [place] [address] 08/18/2016 19:13:26 08/21/2016 03:16:32 [id number] [facility] [address] [place] [address] 08/06/2017 16:20:46 08/06/2017 21:19:04 [id number] [facility] [address] [place] [address] 02/11/2018 16:01:06 02/11/2018 21:36:59 [id number] MD kirstin [facility] [place] [facility] [address] [place] [address] 06/06/2018 16:55:47 06/10/2018 16:39:57 [id number] Poonam Quinn MD [facility] [place] [facility] [address] [place] [address] 06/19/2018 09:21:20 06/19/2018 10:16:22 [id number] [facility] [address] [place] [address] 09/02/2018 16:58:51 09/03/2018 09:16:52 [id number] [facility] [address] [place] [address] 11/12/2018 15:01:58 11/12/2018 18:51:23 [id number] Ashtyn Bolivar, RADIO TIME BUYER [facility] [address] [place] [address] 11/29/2021 17:04:20 11/30/2021 06:58:32 [id number] Ashtyn Bolivar, ASHTYN [facility] [address] [place] [address] 12/15/2021 12:22:05 12/16/2021 08:34:45 [id number] MD KIRSTIN [facility] [place] [address] [place] [address] 01/11/2022 16:24:26 01/11/2022 17:30:02 [id number] Kai Davis MD [facility] [address] [place] [address] 02/21/2022 10:08:23 02/21/2022 14:16:00 [id number] Ashtyn Bolivar, ASHTYN [facility] [address] [place] [address] 03/06/2022 17:54:38 03/07/2022 23:28:20 [id number] Ashtyn Bolivar, ASHTYN [facility] [address] [place] [address] 05/11/2022 15:06:18 05/12/2022 06:02:02 Health Concerns Section Related Observation LastModified by Organization Detai ls LastModified Time None Recorded Concern Status LastModified by Organization Details LastModified Time None Recorded Advance Directives Directive None Recorded Payers Encounter Date Sequence Insurance Name Policy Number Policy Crawley Covered Member ID Crawley Member ID Guarantor Name 12/19/2010 1 [facility] [place] [facility] (MEDICAID HMO) Sangita Umana [id number] Sangita Umana OBGyn Episode No OBEpisode recorded.
--- OUTSIDE RECORDS SUMMARY | 2024-08-22 13:54 | XMS_ITS | Data Portability ---
Author Organization [facility] Address [address] [place] [address] Care Team Providers Care Software Quality Analyst Name Role Phone MARIA GARCIA OTHER MARY BOLIVAR Primary Care Provider Assessment No assessment recorded. Plan of Treatment Reminders Order Date Submit Date Provider Last Modified By Organization Details Last Modified Time Details Appointments None recorded. Lab None recorded. Referral dermatologi st referral 2022 023 [email or web address] [facility], [address], [address], [place], [address], 3 15:06:17 cardiologis t referral 2021 022 [facility], [address], [address], [place], [address], 3 14:31:58 physical therapist referral 2021 022 [facility], [address], [address], [place], [address], 2 10:21:30 Procedures lexiscan cardiolite stress test (PROC) 2021 022 [email or web address] 1 Not available 14:14:52 Surgeries None recorded. Imaging None recorded. Medication Orders Kenalog 40 mg/mL suspension for injection 2022 023 [id number], [address], [place], [place], [id number], 3 16:17:39 methylpredn isolone 4 mg tablets in a dose pack 2021 [facility][id number], [address], [place], [place], [id number], 18:42:42 Lexiscan 0.4 mg/5 mL intravenous syringe 2021 [email or web address] 1 [facility] #[id number], [address], [place], [place], [id number], 10:37:35 mupirocin 2 % topical ointment 2021 [facility] #40555, [address], [place], [place], [id number], 13:03:36 montelukast 10 mg tablet 2021 [facility] #30915, [address], [place], [place], [id number], 13:03:37 ProAir HFA 90 mcg/actuati on aerosol inhaler 2021 [facility] #48977, [address], [place], [place], [id number], 2 13:03:37 duloxetine 60 mg capsule,del ayed release 2021 [facility] #32648, [address], [place], [place], [id number], 2 13:03:38 metoprolol succinate ER 25 mg tablet,exte nded release 24 hr 2021 022 [place] [facility] #40864, [address] [facility], [place], [place], [id number], 13:03:37 Patient TargetsNo targets recorded. Patient Instructions Encounter Date Encounter Id Patient Instructions Last Modified By Organization Details Last Modified Time 03/06/2022 [id number] depression treatment: care instructions [email or web address] Not available 03/06/2022 21:24:17 05/11/2022 [id number] depression treatment: care instructions [email or web address] Not available 05/11/2022 20:01:49 coordination of care* - no car - needs assistance for transport for epidural injection - grocery assistance [email or web address] Not available 05/23/2022 18:16:41 Reason for Referral Physical Therapist Referral for Tendinitis of right shoulder Referring Physician: Mary Slater [facility], Encounter Date: 12/15/2021 Perfusionist Referral for Ac jaci non-ST segment elevation myocardial infarction Referring Physician: Mary Slater [facility], Encounter Date: 12/15/2021 Assembler Knife Referral for B nehemiah cell carcinoma of skin Referring Physician: Mary Slater [facility], Encounter Date: 05/11/2022 Results Created Date Observation Date Name Description Value Unit Range Abnormal Flag Note LastModifiedBy Organization Detail LastModifiedTime 12/16/1912/15/2021 COMPL ETE BLOOD COUNT WITH AUTO DIFF white blood cell 8.1 K/uL 4.4-10 .8 Not Available [facility] [place] [address] [place], [address], 12/15/2021 23:05:23 12/16/19 22 12/15/2021 COMPL ETE BLOOD COUNT WITH AUTO DIFF red blood cell 3.99 M/uL 4.02-5 .18 low Not Available [facility] [place] [address] [place], [address], 12/15/2021 23:05:23 12/16/19 22 12/15/2021 COMPL ETE BLOOD COUNT WITH AUTO DIFF hemoglobin 13.1 g/dL 11.5-1 5.5 Not Available [facility] [place] [address], [place], [address], 12/15/2021 23:05:23 12/16/19 22 12/15/2021 COMPL ETE BLOOD COUNT WITH AUTO DIFF hematocrit 39.5 % 36.0-4 8.0 Not Available [facility] [place] [address], [place], [address], 12/15/2021 23:05:23 12/16/19 22 12/15/2021 COMPL ETE BLOOD COUNT WITH AUTO DIFF mean corpuscular volume 99.0 fL 80.0-9 7.0 high Not Available [facility] [place] [address], [place], [address], 12/15/2021 23:05:23 12/16/19 22 12/15/2021 COMPL ETE BLOOD COUNT WITH AUTO DIFF mean corpuscular hemoglobin 32.8 pg 25.8-3 2.9 Not Available [facility] [place] [address], [place], [address], 12/15/2021 23:05:23 12/16/19 22 12/15/2021 COMPL ETE BLOOD COUNT WITH AUTO DIFF mean corpuscular hemoglobin concentratio n 33.2 g/dL 31.0-3 5.0 Not Available [facility] [place] [address], [place], [address], 12/15/2021 23:05:23 12/16/19 22 12/15/2021 COMPL ETE BLOOD COUNT WITH AUTO DIFF red cell distribution width 14.2 % 11.1-1 5.1 Not Available [facility] [place] [address], [place], [address], 12/15/2021 23:05:23 12/16/19 22 12/15/2021 COMPL ETE BLOOD COUNT WITH AUTO DIFF platelets 258 K/uL 140-40 0 Not Available [facility] [place] [address], [place], [address], 12/15/2021 23:05:23 12/16/19 22 12/15/2021 COMPL ETE BLOOD COUNT WITH AUTO DIFF mean platelet volume 10.3 fL 7.5-14 .0 Not Available [facility] [place] [address], [place], [address], 12/15/2021 23:05:23 12/16/19 22 12/15/2021 COMPL ETE BLOOD COUNT WITH AUTO DIFF neutrophil, percentage 67.8 % 38.8-7 6.4 Not Available [facility] [place] [address], [place], [address], 12/15/2021 23:05:23 12/16/19 22 12/15/2021 COMPL ETE BLOOD COUNT WITH AUTO DIFF lymphocyte, percentage 24.1 % 17.8-4 6.6 Not Available [facility] [place] [address] [facility], [place], [address], 12/15/2021 23:05:23 12/16/19 22 12/15/2021 COMPL ETE BLOOD COUNT WITH AUTO DIFF monocyte, percentage 4.8 % 3.0-11 .0 Not Available [facility] [place] [address] [facility], [place], [address], 12/15/2021 23:05:23 12/16/19 22 12/15/2021 COMPL ETE BLOOD COUNT WITH AUTO DIFF eosinophil, percentage 2.0 % 0.0-6. 0 Not Available [facility] [place] [address], [place], [address], 12/15/2021 23:05:23 12/16/19 22 12/15/2021 COMPL ETE BLOOD COUNT WITH AUTO DIFF basophil, percentage 0.9 % 0.0-2. 0 Not Available [facility] [place] [address] [facility], [place], [address], 12/15/2021 23:05:23 12/16/19 22 12/15/2021 COMPL ETE BLOOD COUNT WITH AUTO DIFF neutrophil, absolute 5.5 K/uL 1.9-7. 9 Not Available [facility] [place] [address] [facility], [place], [address], 12/15/2021 23:05:23 12/16/19 22 12/15/2021 COMPL ETE BLOOD COUNT WITH AUTO DIFF lymphocyte, absolute 2.0 K/uL 1.0-4. 9 Not Available [facility] [place] [address] [facility], [place], [address], 12/15/2021 23:05:23 12/16/19 22 12/15/2021 COMPL ETE BLOOD COUNT WITH AUTO DIFF monocyte, absolute 0.4 K/uL 0.1-1. 2 Not Available [facility] [place] [address] [place], [address], 12/15/2021 23:05:23 12/16/19 22 12/15/2021 COMPL ETE BLOOD COUNT WITH AUTO DIFF eosinophil, absolute 0.2 K/uL 0.0-0. 7 Not Available [facility] [place] [address] [place], [address], 12/15/2021 23:05:23 12/16/19 22 12/15/2021 COMPL ETE BLOOD COUNT WITH AUTO DIFF basophil, absolute 0.1 K/uL 0.0-0. 2 Not Available [facility] [place] [address] [place], [address], 12/15/2021 23:05:23 12/16/19 22 12/15/2021 COMPL ETE BLOOD COUNT WITH AUTO DIFF immature granulocytes % 0.4 % 0.0-3. 0 Not Available [facility] [place] [address] [place], [address], 12/15/2021 23:05:23 12/16/19 22 12/15/2021 COMPL ETE BLOOD COUNT WITH AUTO DIFF immature granulocytes # 0.0 K/uL 0.0-0. 3 Not Available [facility] [place] [address] [place], [address], 12/15/2021 23:05:23 12/16/19 22 12/15/2021 COMPL ETE BLOOD COUNT WITH AUTO DIFF nucleated red blood cell % 0.0 % 0.0-0. 0 Not Available [facility] [place] [address] [place], [address], 12/15/2021 23:05:23 12/16/19 22 12/15/2021 COMPL ETE BLOOD COUNT WITH AUTO DIFF nucleated red blood cell # 0.0 K/uL 0.0-0. 0 Not Available [facility] [place] [address] [place], [address], 12/15/2021 23:05:23 12/16/19 22 12/15/2021 CREAT INE KINAS E creatine kinase 78 U/L 25-160 Not Available [facility] [place] [address] [place], [address], 12/15/2021 23:05:24 12/16/19 22 12/15/2021 COMPR EHENS ANDRIY METAB OLIC PANEL W/EGF R (14) glucose, random 152 mg/dL 70-100 high Not Available [facility] [place] [address], [place], [address], 12/15/2021 23:05:24 12/16/19 22 12/15/2021 COMPR EHENS ANDRIY METAB OLIC PANEL W/EGF R (14) BUN 34 mg/dL 8-25 high Not Available [facility] [place] [address], [place], [address], 12/15/2021 23:05:24 12/16/19 22 12/15/2021 COMPR EHENS ANDRIY METAB OLIC PANEL W/EGF R (14) creatinine 1.1 mg/dL 0.6-1. 4 For patie nts >49 years of age, the refer ence limit for Creat inine is appro ximat tessa 13% highe r for peopl e ident ified as Afric an-Am lorraine n. Not Available [facility] [place] [address], [place], [address], 12/15/2021 23:05:24 12/16/19 22 12/15/2021 COMPR EHENS [...] on CKD. Not Available [facility] [place] [address], [place], [address], 12/15/2021 23:05:24 12/16/19 22 12/15/2021 COMPR EHENS [...] on CKD. Not Available [facility] [place] [address] [place], [address], 12/15/2021 23:05:24 12/16/19 22 12/15/2021 COMPR EHENS ANDRIY METAB OLIC PANEL W/EGF R (14) BUN/creat ratio 31 ratio 10-28 high Not Available [facility] [place] [address] [place], [address], 12/15/2021 23:05:24 12/16/19 22 12/15/2021 COMPR EHENS ANDRIY METAB OLIC PANEL W/EGF R (14) bilirubin, total 0.4 mg/dL 0.2-1. 3 Not Available [facility] [place] [address] [place], [address], 12/15/2021 23:05:24 12/16/19 22 12/15/2021 COMPR EHENS ANDRIY METAB OLIC PANEL W/EGF R (14) AST (SGOT) 53 U/L 14-36 high Not Available [facility] [place] [address] [place], [address], 12/15/2021 23:05:24 12/16/19 22 12/15/2021 COMPR EHENS ANDRIY METAB OLIC PANEL W/EGF R (14) ALT (SGPT) 83 U/L 7-41 high Not Available [facility] [place] [address] [place], [address], 12/15/2021 23:05:24 12/16/19 22 12/15/2021 COMPR EHENS ANDRIY METAB OLIC PANEL W/EGF R (14) alkaline phosphatase 66 U/L 40-135 Not Available [facility] [place] [address] [place], [address], 12/15/2021 23:05:24 12/16/19 22 12/15/2021 COMPR EHENS ANDRIY METAB OLIC PANEL W/EGF R (14) calcium 9.1 mg/dL 8.4-10 .2 Not Available [facility] [place] [address] [place], [address], 12/15/2021 23:05:24 12/16/19 22 12/15/2021 COMPR EHENS ANDRIY METAB OLIC PANEL W/EGF R (14) sodium 137 mmol/ L 134-14 4 Not Available [facility] [place] [address] [place], [address], 12/15/2021 23:05:24 12/16/19 22 12/15/2021 COMPR EHENS ANDRIY METAB OLIC PANEL W/EGF R (14) potassium 4.2 mmol/ L 3.5-5. 2 Not Available [facility] [place] [address] [place], [address], 12/15/2021 23:05:24 12/16/19 22 12/15/2021 COMPR EHENS ANDRIY METAB OLIC PANEL W/EGF R (14) chloride 105 mmol/ L 96-110 Not Available [facility] [place] [address] [place], [address], 12/15/2021 23:05:24 12/16/19 22 12/15/2021 COMPR EHENS ANDRIY METAB OLIC PANEL W/EGF R (14) CO2 23 mmol/ L 22-30 Not Available [facility] [place] [address] [place], [address], 12/15/2021 23:05:24 12/16/19 22 12/15/2021 COMPR EHENS ANDRIY METAB OLIC PANEL W/EGF R (14) total protein 6.9 g/dL 6.3-8. 2 Not Available [facility] [place] [address] [place], [address], 12/15/2021 23:05:24 12/16/19 22 12/15/2021 COMPR EHENS ANDRIY METAB OLIC PANEL W/EGF R (14) albumin 4.4 g/dL 3.5-5. 0 Not Available [facility] [place] [address] [place], [address], 12/15/2021 23:05:24 12/16/19 22 12/15/2021 COMPR EHENS ANDRIY METAB OLIC PANEL W/EGF R (14) globulin 2.5 g/dL 2.0-3. 7 Not Available [facility] [place] [address] [place], [address], 12/15/2021 23:05:24 12/16/19 22 12/15/2021 COMPR EHENS ANDRIY METAB OLIC PANEL W/EGF R (14) albumin/glob ulin 1.8 ratio 1.0-2. 4 Not Available [facility] [place] [address] [place], [address], 12/15/2021 23:05:24 12/16/19 22 12/15/2021 COMPR EHENS ANDRIY METAB OLIC PANEL W/EGF R (14) anion gap 8 ratio 4-18 Not Available [facility] [place] [address] [place], [address], 12/15/2021 23:05:24 12/16/19 22 12/15/2021 TSH RFLX TO FREE T4 TSH 1.08 mIU/L 0.45-4 .50 Not Available [facility] [place] [address], [place], [address], 12/15/2021 23:05:25 12/16/19 22 12/15/2021 URINA LYSIS WITH MICRO SCOPI C REFLX CULTU RE urine color LIGHT- YELLOW yellow abnormal Not Available [facility] [place] [address], [place], [address], 12/15/2021 23:05:26 12/16/19 22 12/15/2021 URINA LYSIS WITH MICRO SCOPI C REFLX CULTU RE urine clarity CLEAR clear Not Available [facility] [place] [address], [place], [address], 12/15/2021 23:05:26 12/16/19 22 12/15/2021 URINA LYSIS WITH MICRO SCOPI C REFLX CULTU RE urine glucose NEGATI VE negati ve Not Available [facility] [place] [address], [place], [address], 12/15/2021 23:05:26 12/16/19 22 12/15/2021 URINA LYSIS WITH MICRO SCOPI C REFLX CULTU RE urine ketones NEGATI VE negati ve Not Available [facility] [place] [address], [place], [address], 12/15/2021 23:05:26 12/16/19 22 12/15/2021 URINA LYSIS WITH MICRO SCOPI C REFLX CULTU RE urine bilirubin NEGATI VE negati ve Not Available [facility] [place] [address], [place], [address], 12/15/2021 23:05:26 12/16/19 22 12/15/2021 URINA LYSIS WITH MICRO SCOPI C REFLX CULTU RE urine specific gravity 1.011 1.005- 1.030 Not Available [facility] [place] [address], [place], [address], 12/15/2021 23:05:26 12/16/19 22 12/15/2021 URINA LYSIS WITH MICRO SCOPI C REFLX CULTU RE urine pH 5.5 5.0-7. 0 Not Available [facility] [place] [address], [place], [address], 12/15/2021 23:05:26 12/16/19 22 12/15/2021 URINA LYSIS WITH MICRO SCOPI C REFLX CULTU RE urine hemoglobin TRACE negati ve abnormal Not Available [facility] [place] [address], [place], [address], 12/15/2021 23:05:26 12/16/19 22 12/15/2021 URINA LYSIS WITH MICRO SCOPI C REFLX CULTU RE urine protein NEGATI VE negati ve Not Available [facility] [place] [address], [place], [address], 12/15/2021 23:05:26 12/16/19 22 12/15/2021 URINA LYSIS WITH MICRO SCOPI C REFLX CULTU RE urine urobilinogen NORMAL mg/dL normal Not Available [facility] [place] [address], [place], [address], 12/15/2021 23:05:26 12/16/19 22 12/15/2021 URINA LYSIS WITH MICRO SCOPI C REFLX CULTU RE urine nitrate NEGATI VE negati ve Not Available [facility] [place] [address], [place], [address], 12/15/2021 23:05:26 12/16/19 22 12/15/2021 URINA LYSIS WITH MICRO SCOPI C REFLX CULTU RE urine leukocyte esterase NEGATI VE chris/u L negati ve Not Available [facility] [place] [address] [facility], [place], [address], 12/15/2021 23:05:26 12/16/19 22 12/15/2021 URINA LYSIS WITH MICRO SCOPI C REFLX CULTU RE urine white blood cells <6 /hpf <[address] [facility] [place] [address] [facility], [place], [address], 12/15/2021 23:05:26 12/16/19 22 12/15/2021 URINA LYSIS WITH MICRO SCOPI C REFLX CULTU RE urine red blood cells <5 /hpf <[address] [facility] [place] [address] [facility], [place], [address], 12/15/2021 23:05:26 12/16/19 22 12/15/2021 URINA LYSIS WITH MICRO SCOPI C REFLX CULTU RE urine bacteria NEGATI VE /hpf negati ve Not Available [facility] [place] [address] [facility], [place], [address], 12/15/2021 23:05:26 12/16/19 22 12/15/2021 URINA LYSIS WITH MICRO SCOPI C REFLX CULTU RE urine squamous epithelial cells FEW /hpf few Not Available [facility] [place] [address] [facility], [place], [address], 12/15/2021 23:05:26 12/16/19 22 12/15/2021 MICRO ALBUM IN/CR EATIN INE RATIO , RANDO M albumin, urine <3.0 Noah ified by qasim black sheila sis Not Available [address], [address], 12/16/2021 16:11:33 12/16/19 22 12/15/2021 MICRO ALBUM IN/CR EATIN INE RATIO , RANDO M alb/creat ratio <7 Tena l: 0 - 29 Moder ately incre ased: 30 - 300 Sever tessa incre ased: >300 Not Available [facility] [address] [place], [address], 12/16/2021 16:11:33 12/16/19 22 12/16/2021 MICRO ALBUM IN/CR EATIN INE RATIO , RANDO M creatinine, urine 43.7 mg/dL not estab. normal Not Available [facility] [address] [place], [address], 12/16/2021 16:11:33 01/10/20 22 11/08/2021 US, echoc ardio gram, trans thora cic, compl ete, w/ color flow No observ ation record ed. Not Available 01/09 12:25:18 01/10/20 22 11/07/2021 CT, chest , w/ contr ast No observ ation record ed. [email or web address] Not Available 01/09 12:26:35 01/10/20 22 11/08/2021 elect rocar diogr am No observ ation record ed. [email or web address] Not Available 01/09 13:04:25 02/28/20 22 02/21/2022 [...] Time Mixed anxiety and depressiv e disorder 377400243 Active APRIL DeyrP [address], [place], [address] , [facility] 6 23:05:09 Degenerat ion of lumbar intervert ebral disc 27515775 Active Mary Bolivar [facility] [address], [place], [address] , [facility] 6 23:05:09 Cigarette smoker 52434905 Active APRIL DyerP [address], [place], [address] , [facility] 6 23:05:09 Degenerat ion of lumbosacr al intervert ebral disc 63341481 Active Mary Bolivar [facility] [address], [place], [address] , [facility] 6 23:05:09 Increased frequency of urination 676028099 Active 2017 Mary Bolivar [facility] [address], [place], [address] , [facility] 8 17:30:33 Visual disturban ce 36812806 Active 2017 Mary Bolivar [facility] [address], [place], [address] , [facility] 8 17:35:59 Mild memory disturban ce 575752563 Active 2017 Mary Bolivar [facility] [address], [place], [address] , [facility] 8 20:54:57 Long-term current use of opiate analgesic drug 26068502876 4108 Active 2017 Mary Bolivar [facility] [address], [place], [address] , [facility] 8 21:00:28 Overweigh t 442281154 Active 2017 Mary Bolivar, [employer] [address], [place], [address] , [place] [facility] 8 17:16:33 History of hepatitis C 67302430672 101 Active 2017 APRIL DyerP [address], [place], [address] , [facility] - [facility] 8 17:18:05 Malaise and fatigue 117316197 Active 2017 APRIL DyerP [address], [place], [address] , [facility] - [facility] 8 17:19:09 Intermitt ent palpitati ons 891603436 Active 2017 APRIL DyerP [address], [place], [address] , [facility] - [facility] 8 17:39:53 Blood glucose outside reference range 229243421 Active 2018 APRIL DyerP [address], [place], [address] , [facility] - [facility] 9 18:44:22 Spinal stenosis in cervical region 51987945 Active 2018 Mary Bolivar [employer] [address], [place], [address] , [facility] - [facility] 9 15:58:06 Lumbar post-lami nectomy syndrome 974848080 Active 2018 Mary Bolivar [employer] [address], [place], [address] , [facility] - [facility] 9 16:04:11 Palpitati ons 30652926 Active 2017 Not Available [facility] 0 10:47:05 Acute injury of kidney 99592586234 492969 Active 2021 APRIL DyerP [address], [place], [address] , [facility] 2 17:55:57 Rhabdomyo lysis 689522234 Active 2021 [facility], [employer] [address], [place], [address] , [facility] 2 17:56:19 Acute non-ST segment elevation myocardia l infarctio n 742979523 Active 2021 Mary Slater, [employer] DIRECT[employer] [address], [place], [address] , [facility] 2 18:04:07 Body mass index 20-24 - normal 479641459 Active 2021 Mary Bolivar, [employer] DIRECTOR [address], [place], [address] , [facility] 2 22:02:51 Tendiniti s of right shoulder 32596861459 56172 Active 2021 Mary Slater, [employer] DIRECTOR [address], [place], [address] , [facility] 2 12:45:33 Superfici al injury of foot without infection 92320475 Active 2021 [facility], [employer] [address], [place], [address] , [facility] 2 12:51:42 Infection of skin 708065817 Active 2021 Mary Slater, [employer] [address], [place], [address] , [facility] 2 12:56:57 Liver enzymes level above reference range 549016691 Active 2021 [facility], [employer] DIRECT[employer] [address], [place], [address] , [facility] 2 16:01:49 Celluliti s of foot 933005488 Active 2021 [facility], [employer] [address], [place], [address] , [facility] 2 22:38:23 Headache 80565839 Active 2021 Mary Bolivar, [employer] DIRECT[employer] [address], [place], [address] , [facility] 2 23:51:23 Liver function tests outside reference range [id number] Active 2021 Mary Bolivar THEATRE PROGRAM DIRECTOR [address], [place], [address] , [facility] 2 18:25:35 Lumbar radiculop athy 613422109 Active 2021 Mary Bolivar [employer] PROGRAM DIRECTOR [address], [place], [address] , [facility] 2 15:21:10 Basal cell carcinoma of skin 248613060 Active 2022 APRIL DyerP [address], [place], [address] , [facility] 3 15:35:25 Lumbago with sciatica 313519186 Active 2022 Mary Bolivar, THEATRE PROGRAM DIRECTOR [address], [place], [address] , [facility] 3 15:47:59 Finding of hand region [id number] Completed 05/10/2015 Mary Bolivar [employer]ATRE PROGRAM DIRECTOR [address], [place], [address] , [facility] 6 23:05:09 Gastroeso phageal reflux disease [id number] Active Mary Bolivar THEATRE PROGRAM DIRECTOR [address], [place], [address] , [facility] 6 23:05:09 Chronic pain syndrome 759631528 Active Mary Bolivar THEATRE PROGRAM DIRECTOR [address], [place], [address] , [facility] 6 23:05:09 Cough 56440057 Completed 08/06/2017 Mary Bolivar, THEATRE PROGRAM DIRECTOR [address], [place], [address] , [facility] 8 17:19:04 Menopausa l symptom 75705391 Active [facility], THEATRE PROGRAM DIRECTOR [address], [place], [address] , [facility] 6 23:05:09 Benign essential hypertens ion [id number] [facility], THEATRE PROGRAM DIRECTOR [address], [place], [address] , [facility] 6 23:05:09 Benign essential hypertens ion 5588547 Completed 05/10/2010 [facility], THEATRE PROGRAM DIRECTOR [address], [place], [address] , [facility] 6 23:05:09 Acute hepatitis C 052153555 Completed 02/11/2018 [facility], THEATRE PROGRAM DIRECTOR [address], [place], [address] , [facility] 8 17:17:48 Feeling nervous 709072466 [facility], THEATRE PROGRAM DIRECTOR [address], [place], [address] , [facility] 6 23:05:09 Degenerat andriy joint disease involving multiple joints 996143035 [facility], THEATRE PROGRAM DIRECTOR [address], [place], [address] , [facility] 6 23:05:09 Depressiv e disorder [id number] [facility], THEATRE PROGRAM DIRECTOR [address], [place], [address] , [facility] 6 23:05:09 Closed fracture of phalanx of foot [id number] [facility], THEATRE PROGRAM DIRECTOR [address], [place], [address] , [facility] 6 23:05:09 Tobacco dependenc e syndrome 02490762 Completed 08/06/2017 Mary Slater, THEATRE PROGRAM DIRECTOR [address], [place], [address] , [facility] 8 17:22:06 Shoulder joint pain 856288662 Active Mary Bolivar THEATRE PROGRAM DIRECTOR [address], [place], [address] , [facility] 6 23:05:09 Carpal tunnel syndrome 31929700 Active Mary Slater, THEATRE PROGRAM DIRECTOR [address], [place], [address] , [facility] 6 23:05:09 Obesity 635150772 Active Mary Slater THEATRE PROGRAM DIRECTOR [address], [place], [address] , [facility] 6 23:05:09 Osteopeni a 015875392 Active Mary Slater [facility] [address], [place], [address] , [facility] 6 23:05:09 Low back pain 520789075 Completed 08/06/2017 Mary Slater [facility] [address], [place], [address] , [facility] 8 20:57:40 Asthma 381498374 Active Mary Slater [facility] [address], [place], [address] , [facility] 6 23:05:09 Problem Notes None recorded. Procedures Surgical History Date Name Laterality Status Provider Name and Address Organization Details Recorded Time 02/22/20 22 Stress MPI INITIAL - Lexiscan (IAC) completed Rebecca Matthew [facility] 02/21/2022 14:09:56 02/22/20 22 Stress MPI RESULT - Normal (IAC) [place] [address], [place], [address], [facility] 02/27/2022 10:37:33 12/30/19 21 Knee Replacement completed Mary Bolivar, THEATRE PROGRAM DIRECTOR [address], [place], [address], [facility] 11/29/2021 17:59:04 08/07/19 18 PCM Nicotine SMOKING completed Pascaledaniel Chu [facility] 08/06/2017 16:48:59 08/19/19 17 PCMH Nicotine SMOKING completed SUNG Marsh [facility] 08/18/2016 19:24:27 05/15/19 17 PCM Nicotine SMOKING completed Rakan Chase [facility] 05/15/2016 18:20:54 05/15/19 17 [facility] Depression Screening PHQ9 completed Rakan Chase [facility] 05/15/2016 18:20:44 04/30/19 10 Other (Please specify) completed Not Available [facility] 03/23/2011 02:44:30 04/30/19 09 Hip Surgery completed Not Available [facility] 03/23/2011 02:44:30 04/30/19 00 Tubal Ligation completed Not Available [facility] 03/23/2011 02:44:30 04/30/18 99 Cholecystectomy completed Not Available [facility] 03/23/2011 02:44:30 Gallbladder Surgery completed Alla Mccabe [facility] 01/11/2022 16:28:45 Back Surgery completed Alla Mccabe [facility] 01/11/2022 16:28:45 Joint Replacement completed Chula Mccabe [facility] 01/11/2022 16:28:45 Spine Surgery (Cervical, Thoracic, Lumbar) completed Alla Mccabe [facility] 01/11/2022 16:28:45 Section completed Mary Bolivar, THEATRE PROGRAM DIRECTOR [address], [place], [address], [facility] 03/06/2022 18:43:29 Breast Surgery (Lumpectomy, Biopsy, Implants) completed Mary Bolivar, THEATRE PROGRAM DIRECTOR [address], [place], [address], [facility] 03/06/2022 18:43:29 Carpal tunnel surgery completed Mary Bolivar, THEATRE PROGRAM DIRECTOR [address], [place], [address], [place] [facility] 06/12/2017 11:13:47 Imaging Results Imaging Date Name Status LastModified by Organization Details LastModified Time 11/08/2021 US, echocardiogram, transthoracic, complete, w/ color flow completed [email or web address] Information not available 01/09/2022 12:25:18 11/07/2021 CT, chest, w/ contrast completed Information not available 01/09/2022 12:26:35 11/08/2021 electrocardiogram completed [email or web address] Informa tion not available 01/09/2022 13:04:25 02/21/2022 [...] Updated DateTime 2 152.4 cm 21.6 kg/m2 15555.3 2 g 99.3 [degF] 99 % 99 [...] Updated DateTime 2 152.4 cm 23 kg/m2 15477.9 g 72 /min 98 % 98 % [...] Updated DateTime 2 152.4 cm 23.5 kg/m2 07842.1 8 g 98 [degF] 50 /min 16 [...] Updated DateTime 3 152.4 cm 23.4 kg/m2 82968.0 8 g 98.7 [degF] 16 /min 99 % 99 % 64 /min 110 mm[Hg] 80 mm[Hg] Pina Gambino [facility] 3 15:18:31 Social History Question Answer Notes LastModified by Organizat ion Details LastModified Time Tobacco Smoking Status Current Every Day Smoker [facility], [facility] [address], [place], [address], [facility] 03/06/2022 18:43:22 Do You Have An Advance Directive? No [email or web address] Information not available 01/11/2022 What Is Your Level Of Alcohol Consumption? None Clean And Sober Information not available 05/10/2015 Are You Blind Or Do You Have Difficulty Seeing? Yes [email or web address] Information not available 01/11/2022 Is Blood Transfusion Acceptable In An Emergency? Yes [email or web address] Information not available 01/11/2022 What Is Your Level Of Caffeine Consumption? Moderate [email or web address] Information not available 01/11/2022 How Much Tobacco Do You Chew? None Information not available 09/02/2018 Are You Currently Employed? No [email or web address] Information not available 01/11/2022 Are You Deaf Or Do You Have Serious Difficulty Hearing? No [email or web address] Information not available 01/11/2022 What Type Of Diet Are You Following? REGULAR Information not available 08/06/2017 What Is Your Occupation? Disability Information not available 08/06/2017 When Did You Quit Smoking? 1-5yearssince lastcigarette Information not available 11/29/2021 Which Of Your Hands Is Dominant? Right [email or web address] Information not available 01/11/2022 Marital Status Informatio n not available 03/06/2022 What Was The Date Of Your Most Recent Tobacco Screening? 05/11/2022 [email or web address] Information not available 05/11/2022 Do You Have Any Pets? No [email or web address] Information not available 01/11/2022 What Is Your Relationship Status? [email or web address] Information not available 01/11/2022 Are You Sexually Active? No Information not available 03/06/2022 At What Age Did You Start Smoking Tobacco? 47 Information not available 03/06/2022 How Much Tobacco Do You Smoke? No Rolls Own Cigarettes Information not available 03/06/2022 Do You Feel Stressed (tense, Restless, Nervous, Or Anxious, Or Unable To Sleep At Night)? [id number] [email or web address] Information not available 01/11/2022 Do You Use [...] Other Forms Of Tobacco Or Nicotine? No [email or web address] Information not available 01/11/2022 Sex: Unknown Functional Status Question Answer Note LastModified by Organization D etails LastModified Time Are you able to care for yourself? Yes [email or web address] Information not available 01/11/2022 What is your exercise level? Moderate [email or web address] Information not available 01/11/2022 Mental Status None [...] Not available 2021 18:43:09 Mother Hypertensive disorder [email or web address] Not available 01/11 16:28:33 Mother Hyperlipidem ia [email or web address] Not available 2021 18:43:10 Mother Heart disease [email or web address] Not available 2021 18:43:10 Mother Disorder of musculoskele diego system [email or web address] Not available 03/06 18:43:10 Brother Coronary arterioscler osis [email or web address] Not available 2021 18:43:10 Brother Hypertensive disorder [email or web address] Not available 01/11 16:28:33 Brother Disorder of musculoskele diego system [email or web address] Not available 03/06 18:43:10 Maternal Grandmother Diabetes mellitus [email or web address] Not available 2021 18:43:10 Maternal Grandmother Alzheimer's disease [email or web address] Not available 2021 18:43:10 Maternal Grandmother Depressive disorder [email or web address] Not available 2021 18:43:10 Maternal Grandmother Hypertensive disorder [email or web address] Not available 01/11 16:28:33 Maternal Grandmother Family [...] SNOMED-CT Code Diagnosis ICD10 Code Diagnosis Note [id number] [facility] and [address] [facility] [place] [address] 05/05/2010 18:12:34 05/05/2010 19:18:30 [id number] Amaya Fine (Elenita) [facility] [address] [facility] [place] [address] 05/10/2010 17:06:55 05/10/2010 18:50:11 [id number] [facility] and [address] [facility] [place] [address] 05/31/2010 18:17:55 05/31/2010 19:23:28 [id number] [facility] and [address] [facility] [place] [address] 10/04/2010 17:25:28 10/04/2010 18:04:57 [id number] Amaya Guo) [facility] and [address] [place] [address] 10/26/2010 15:30:56 10/26/2010 16:47:04 [id number] [facility] [address] [place] [address] 12/19/2010 19:34:25 12/19/2010 20:13:27 [id number] [facility] and [address] [place] [address] 03/17/2011 14:44:01 03/17/2011 15:31:54 [id number] [facility] and [address] [place] [address] 06/01/2011 12:28:37 06/01/2011 13:54:09 [id number] Amaya Guo) [facility] [address] [place] [address] 07/18/2012 19:08:12 07/19/2012 13:17:25 [id number] Amaya Guo) [facility] [address] [place] [address] 05/22/2013 16:22:52 05/23/2013 10:09:02 Feeling nervous 721017154 RF meds, use as directed. Tobacco de pendence syndrome 36785875 Pt unwilling to quit at this time. Cough likely related. Discussed risk of COPD. Benign ess ential hypertension 9791834 Restart meds, check labs. Acute hepatitis C 172173241 check labs. [id number] [facility] and [address] [place] [address] 12/15/2013 18:32:26 12/15/2013 19:40:41 Benign essential hypertension 6102038 Check labs, continue meds. Feeling nervous 383824506 RF meds, use as directed. Obesity 744553341 Encour aged healthy diet and exercise. Carpal dorys mellissa syndrome 80164299 Send to specialist . Acute hepatitis C 424177807 check labs. [id number] Essence Knowles, DO [facility] [address] [facility] [place] [address] 01/02/2014 10:53:17 01/02/2014 15:51:25 Osteopenia 933214116 Due for DEXA scan, ordered. Tobacco de pendence syndrome 12474801 Pt unwilling to quit at this time. Discussed risk of COPD. [id number] Bess Oh [facility] and [address] [facility] [place] [address] 03/19/2014 15:04:03 03/19/2014 15:32:34 Influenza vaccine needed [id number] 106 Asthma 816391030 RF inhaler, using occasional ly. Discussed asthma action plan. [id number] Carolin Gonzalez,[facility] A [facility] and [address] [facility] [place] [address] 05/10/2015 15:37:23 05/11/2015 11:24:05 Asthma 942032284 J45.909 Inhaler prn wheeze Benign ess ential hypertension 2670014 I10 continue Lisinopril /HTTZ; monitor BP Tobacco de pendence syndrome 96651429 F17.290 ASHLINE.OR G to assist with cessation Influenza vaccine needed 4513528695 106 Z23 Mixed anxi ety and depressive disorder 182986135 F41.8 needs follow-up with psych; discuss combinatio n of Lorazepam and pain medication s can cause excessive sedation Osteopenia 387647770 M85 .80 Degenerati on of lumbar intervertebral disc 45498623 M51.36 Continue PM follow-up [id number] Kateryna Gertrude [facility] [address] [facility] [place] [address] 07/13/2015 15:34:17 07/14/2015 12:42:51 Cigarette smoker 18137555 F17.210 Discuss triggers - Patch to help quit - start 21 mg/day then decrease to 14 mg/day - no smoking while on patch Mixed anxi ety and depressive disorder 042265321 F41.8 Discuss need for psych referral - OK refill Lorazepam - avoid using daily - can develop tolerance Benign ess ential hypertension 2048181 I10 continue Lisinopril /HTTZ; monitor BP [id number] Barby Rogel MD [facility] [address] [facility] [place] [address] 05/15/2016 17:34:06 05/15/2016 19:08:03 Shoulder joint pain 672284922 M25.511 ref to Ortho.outs bonita records reviewed.O n chronic opioids. [id number] Radha Mcmahon, DO [facility] [address] [facility] [place] [address] 08/18/2016 19:13:26 08/21/2016 03:16:32 Nicotine dependence 78369452 F17.210 Quitting smoking including medication s options discussed, risks and benefits discussed. Diarrhea 54002552 R19.7 due to intoleranc e to water intake, advised ER for IV fluids. OK to take pepto bismol, imodium, and zofran for s/sx control post-ER visit with close f/u 3-5 days for persisting s/sx. Nausea 468212566 R11.0 ok for PRN zofran Benign ess ential hypertension 8797092 I10 stable; avoid medication s until dehydratio n resolved. [id number] ASHTYN Dyer [facility] [address] [facility] [place] [address] 08/06/2017 16:20:46 08/06/2017 21:19:04 Benign essential hypertension 0498491 I10 Lisinopril to 40 mg daily ; monitor BP - ideally < 140/90 Asthma 173416037 J45.90 9 Inhaler prn wheeze Cigarette smoker 4592535 7 F17.210 Discuss triggers - Patch to help quit - start 7 mg/day - no smoking while on patch Chronic pain syndrome 37 7281724 G89.4 seen by pain management Degenerati on of lumbosacral intervertebral disc 46294087 M51.37 seen by pain management ; epidural helping Increased frequency of urination 818564698 R35.0 recheck labs Viral screening 19343689 4 Z11.59 Screening mammography 24 249413 Z12.31 Visual disturbance 75920 001 H53.9 referral submitted Administra tion of viral vaccine 55398219 Z23 Mild memor y disturbance 988640245 R41.3 reported - follow-up in 1 month for further testing Chronic back pain 543965 002 M54.12 seen by pain management ; epidural helping Long-term current use of opiate analgesic drug 4967839436 21510 Z79.891 seen by pain management ; weaning off patch [id number] [facility], [facility] and [address] [facility] [place] [address] 02/11/2018 16:01:06 02/11/2018 21:36:59 Overweight 065392612 Z68.27 food diary- DASH diet - silver sneakers for exercise Degenerati on of lumbar intervertebral disc 38287441 M51.[address] Torrez for epidural injections Chronic pain syndrome 37 2763813 G89.4 seen by pain management Cigarette smoker 3701248 7 F17.210 Discuss triggers - Intermitte nt palpitations 179452660 R00.[address] referral Benign ess ential hypertension 8428426 I10 Lisinopril to 40 mg daily + add HCTZ ; monitor BP - ideally < 140/90 Malaise and fatigue 2717 51715 R53.83 recheck labs History of hepatitis C 8749098040 9101 Z86.19 virus cleared Screening for malignant neoplasm of colon 742190978 Z12.11 [id number] MD kirstin Montero_lluvia delarosa e cardiolog y [address] [place] [address] 06/06/2018 16:55:47 06/10/2018 16:39:57 [id number] MD sravanthi Montero e cardiolog y [address] [place] [address] 06/19/2018 09:21:20 06/19/2018 10:16:22 [id number] [facility] and [address] [address] 09/02/2018 16:58:51 09/03/2018 09:16:52 Obesity 628511019 E66.9 Z68.31 discuss weight gain;Diet: 1800 Calories Low Glycemic Index DietExerci se: Work up to 30 min 5x/week as tolerated Depression screening 171 293973 Z13.89 see PQH-9 result in body of chart Screening Negative Benign ess ential hypertension 2076370 I10 BP elevated today - increased pain and off metoprolol - Lisinopril to 40 mg daily + resume metoprolol - monitor BP - ideally < 140/90 Cigarette smoker 9861372 7 F17.210 Discuss triggers - decreasing smoking - hoping to quit Long-term current use of opiate analgesic drug 0826817424 89100 Z79.891 seen by pain management ; Chronic pain syndrome 37 9399984 G89.4 OK to resume Topamax seen by pain management Degenerati on of lumbar intervertebral disc 86735527 M51.36 epidural injections done - pain management seen Screening for malignant neoplasm of colon 318899766 Z12.11 Osteopenia 527978653 M85 .80 check labs Blood gluc ose outside reference range 212069528 R73.09 check labs Gastroesop hageal reflux disease 276762934 K21.9 stable Mammography abnormal 168 987675 R92.8 [id number] [facility], [facility] and [address] [facility] [address] [place] [address] 11/12/2018 15:01:58 11/12/2018 18:51:23 Benign essential hypertension 3878500 I10 BP elevated today Lisinopril 40 mg daily + metoprolol 50 mg - monitor BP - ideally < 140/90 Obesity 825714067 Z68.31 Diet: 1800 Calories Low Glycemic Index Diet Exercise: Work up to 30 min 5x/week as tolerated Asthma 031393407 J45.90 9 aerosol Inhaler prn wheeze Chronic pain syndrome 37 3468719 G89.4 increase Topamax 100 mg BID - seen by pain management Long-term current use of opiate analgesic drug 8003763115 13042 Z79.891 seen by pain management ; Cigarette smoker 7908054 7 F17.210 Discuss triggers - decreasing smoking - hoping to quit Degenerati on of lumbosacral intervertebral disc 02814142 M51.37 seen by pain management - needs transfer to [place] - Pain management tomorrow Spinal jefe nosis in cervical region 15385120 M48.02 per MRI done at pain management Lumbar post-laminectomy syndrome 436087046 M96.1 Pain management follow-up [id number] [facility], [facility] and [address] [facility] [address] [place] [address] 11/29/2021 17:04:20 11/30/2021 06:58:32 Acute injury of kidney 1348476717 8222457 N17.9 recheck labs - good fluid intake - recheck labs today Rhabdomyolysis 965630665 M62.82 good fluid intake Benign ess ential hypertension 8268763 I10 amlodipine 5 mg daily in hospital but was on Metoprolol and lisinopril in [place] Acute non- ST segment elevation myocardial infarction 842946040 I21.4 ASA daily Chronic pain syndrome 37 2602748 G89.4 Topamax 50 mg BID - referral to pain management - asking about RX for pain meds but instructed that needs to get from pain management Ex-cigarette smoker 2810 64450 Z87.891 Just quit - stay off smoking Body mass index 20-24 - normal 730322631 Z68.20 [id number] [facility], [facility] and [address] [facility] [address] [place] [address] 12/15/2021 12:22:05 12/16/2021 08:34:45 Tendinitis of right shoulder 6045887494 974968 M75.91 PT referral submitted Chronic pain syndrome 37 8003553 G89.4 Duloxetine daily - Topamax 50 mg BID - has referral to pain management Asthma 515130748 J45.90 9 Inhaler prn wheeze- ok to resume Montelukas t Ex-cigarette smoker 2810 14685 Z87.891 Just quit - stay off smoking Infection of skin 291593 000 L08.9 keep clean with soap and water and keep dry - OK for Mupirocin to edge of left foot abrasion Acute non- ST segment elevation myocardial infarction 833629698 I21.4 ASA daily -metoprolo l - low dose lisinopril - cardiology referral discussed Benign ess ential hypertension 3385871 I10 amlodipine with Metoprolol and lisinopril Depression screening 171 083565 Z13.31 see [facility]-9 result in body of chart Screening Negative [id number] MD KIRSTIN Villanueva_[facility] - [place] e [address] [place] [address] 01/11/2022 16:24:26 01/11/2022 17:30:02 Acute non-ST segment elevation myocardial infarction 051743927 I21.4 He has been diagnosed with a [...] left foot pain Benign ess ential hypertension 8331575 I10 Blood pressure is controlled on current treatment she is on lisinopril 10 mg and Toprol 25 mg Blood gluc ose outside reference range 777411954 R73.09 [id number] MD [facility]IN [facility] [place] [address] [place] [address] 02/21/2022 10:08:23 02/21/2022 14:16:00 Acute non-ST segment elevation myocardial infarction 808122295 I21.4 He has been diagnosed with a [...] treadmill because of her left foot pain [id number] [facility] and [address] [facility] [address] [facility] [place] [address] 03/06/2022 17:54:38 03/07/2022 23:28:20 Normal weight 97431955 Z68.23 Liver func tion tests outside reference range 164741907 R94.5 denies alcohol use - discuss possible causes Chronic pain syndrome 37 4002468 G89.4 Duloxetine daily - Topamax 50 mg BID - pain management seen Degenerati on of lumbar intervertebral disc 65564061 M51.36 OK for steroid pack - epidural injections tried - pain management seen Lumbar post-laminectomy syndrome 139602286 M96.1 OK for scooter - Pain management follow-up Mixed anxi ety and depressive disorder 240532657 F41.8 psych referral - discuss counseling Cigarette smoker 8193055 7 F17.210 Discuss triggers - try to decrease smoking Benign ess ential hypertension 0561318 I10 lisinopril 10 mg daily Depression screening 171 973381 Z13.31 see PQH-9 result in body of chart Screening Positive: Overall Plan discussed with Pt [id number] Mary Bolivar, ASHTYN [facility] and [address] [facility] [address] [facility] [place] [address] 05/11/2022 15:06:18 05/12/2022 06:02:02 Depression screening 418252190 Z13.31 see PQH-9 result in body of chart Screening Negative Cigarette smoker 4955155 7 F17.210 Discuss triggers - try to decrease smoking Degenerati on of lumbar intervertebral disc 93679639 M51.36 epidural injections tried - pain management seen - care coordinato r referral Long-term current use of opiate analgesic drug 1464896953 55904 Z79.891 seen by pain management ; Spinal jefe nosis in cervical region 15290178 M48.02 per MRI done at pain management Basal cell carcinoma of skin 911540578 C44.91 DERM referral Lumbago with sciatica 20 0239825 M54.42 OK for steroid injection today to help with inflammati on Lack of ac cess to transportation [id number] Z59.82 OK for transport assistance Health Concerns Section Related Observation LastModified by Organization Detai ls LastModified Time None Recorded Concern Status LastModified by Organization Details LastModified Time None Recorded Advance Directives Directive N: Payers Encounter Date Sequence Insurance Name Policy Number Policy Crawley Covered Member ID Crawley Member ID Guarantor Name 12/15/2021 1 [facility] - DUAL ELIGIBLE (MEDICARE REPLACEMENT/A DVANTAGE - HMO) [facility] Sangita Umana [id number] Sangita Umana 12/15/2021 2 [facility] (MEDICAID REPLACEMENT - HMO) Sangita Umana [id number] Sangita Umana 01/11/2022 1 [facility] - DUAL ELIGIBLE (MEDICARE REPLACEMENT/A DVANTAGE - HMO) [facility] Sangita Umana [id number] Snagita Umana 01/11/2022 2 [facility] (MEDICAID REPLACEMENT - HMO) Sangita Umana [id number] Sangita Umana 02/21/2022 1 [facility] - DUAL ELIGIBLE (MEDICARE REPLACEMENT/A DVANTAGE - HMO) FRANCA Umana [id number] Sangita Umana 02/21/2022 2 [facility] (MEDICAID REPLACEMENT - HMO) Sangita Umana [id number] Sangita Umana 03/06/2022 1 [facility] - DUAL ELIGIBLE (MEDICARE REPLACEMENT/A DVANTAGE - HMO) [facility] Sangita Umana [id number] Sangita Umana 03/06/2022 2 [facility] (MEDICAID REPLACEMENT - HMO) Sangita Umana [id number] Sangita Umana 05/11/2022 2 [facility] (MEDICAID REPLACEMENT - HMO) Sangita Umana [id number] Sangita Umana 05/11/2022 1 [facility] - DUAL ELIGIBLE (MEDICARE REPLACEMENT/A DVANTAGE - HMO) [facility] Sangita Umana [id number] Sangita Umana Notes Date Note Type Note [...] muscle relaxer helpingLabs done today ASHTYN Dyer [address], [place], [address], [facility] 12/15/2021 15:34:55 01/11/2022 text/html This is a [...] [place] [address], [place], [address], [facility] 01/11/2022 17:02:02 03/06/2022 text/html review labs - wa s not fastingless dessert and more natural foodsno alcohol - in AAhair thinningseen by pain specialist - epidural scheduled - steroid pack tried - sharp stabbing pain on lumbar back - pinching painhaving issues with transportation Mary Bolivar, [employer] PROGRAM DIRECT[employer] [address], [place], [address], [facility] 03/06/2022 21:27:33 05/11/2022 text/html PCMH - HTNReport [...] moles checked - back mole getting larger [facility], [employer]ATRE PROGRAM DIRECTOR [address], [place], [address], [facility] 05/11/2022 20:05:50 OBGyn Episode No OBEpisode recorded.
--- OUTSIDE RECORDS SUMMARY | 2024-08-22 13:54 | XMS_ITS | Data Portability ---
Author Organization [facility] - MARY Parks Address [address] [place] [address] Care Team Providers Care Director Of Instructional Technology Name Role Phone MARY ESCOTO Primary Care Provider [phone] Assessment No assessment recorded. Plan of Treatment [...] By Organization Details Last Modified Time 08/24/2022 [id number] learning about healthy weight Not available 08/24/2022 [...] lumbar MBB/RFA Not available 08/24/2022 16:51:57 09/12/2022 [id number] We will rereques t records from prior [...] mg/dL 20 - 400 Not Available [facility] [address] [place] [address], [place], [address], 08/25/2022 22:53:13 08/25/19 23 08/25/2022 VALID ITY pH Normal 4.0 - 9.5 Not Available [facility] [address] [place] [address], [place], [address], 08/25/2022 22:53:13 08/25/19 23 08/25/2022 VALID ITY specific gravity Normal 1.0030 - 1.0350 normal Not Available [facility] [address] [place] [address], [place], [address], 08/25/2022 22:53:13 08/25/19 23 08/25/2022 UDT SCREE N opi Neg Not Available [facility] [address] [place] [address], [place], [address], 08/25/2022 22:53:13 08/25/19 23 08/25/2022 UDT SCREE N THC Pos Not Available [facility] [address] [place] [address], [place], [address], 08/25/2022 22:53:13 08/25/19 23 08/25/2022 UDT SCREE N fentanyl Neg Not Available [facility] [address] [place] [address], [place], [address], 08/25/2022 22:53:13 08/25/19 23 08/25/2022 UDT SCREE N kaur Neg Not Available [facility] [address] [place], [place] [address], [place], [address], 08/25/2022 22:53:13 08/25/19 23 08/25/2022 UDT SCREE N madisyn Neg Not Available [facility] [address] [place], [place] [address], [place], [address], 08/25/2022 22:53:13 08/25/19 23 08/25/2022 UDT SCREE N pcp Neg Not Available [facility] [address] [place], [place] [address], [place], [address], 08/25/2022 22:53:13 08/25/19 23 08/25/2022 UDT SCREE N mdn Neg Not Available [facility] [address] [place], [place] [address], [place], [address], 08/25/2022 22:53:13 08/25/19 23 08/25/2022 UDT SCREE N oxy Pos Not Available [facility] [address] [place], [place] [address], [place], [address], 08/25/2022 22:53:13 08/25/19 23 08/25/2022 UDT SCREE N bup Neg Not Available [facility] [address] [place] [address], [place], [address], 08/25/2022 22:53:13 08/25/19 23 08/25/2022 UDT SCREE N amp Neg Not Available [facility] [address] [place], [place] [address], [place], [address], 08/25/2022 22:53:13 08/25/19 23 08/25/2022 UDT SCREE N ETOH Neg <50.0 Not Available [facility] [address] [place] [address], [place], [address], 08/25/2022 22:53:13 08/25/19 23 08/28/2022 ALCOH OL BIOMA RKERS etg Negati ve NG/mL <500 Not Available [facility] [address] [place] [address], [place], [address], 09/01/2022 14:09:59 08/25/19 23 08/28/2022 ALCOH OL BIOMA RKERS ets Negati ve NG/mL <500 Not Available [facility] [address] [place] [address], [place], [address], 09/01/2022 14:09:59 08/25/19 23 08/28/2022 AMPHE TAMIN ES methamphetam ine Negati ve NG/mL <100 Not Available [facility] [address] [place] [address], [place], [address], 09/01/2022 14:09:59 08/25/19 23 08/28/2022 AMPHE TAMIN ES amphetamine Negati ve NG/mL <100 Not Available [facility] [address] [place] [address], [place], [address], 09/01/2022 14:09:59 08/25/19 23 08/28/2022 AMPHE TAMIN ES phentermine Negati ve NG/mL <100 Not Available [facility] [address] [place] [address], [place], [address], 09/01/2022 14:09:59 08/25/19 23 08/28/2022 VIC TURAT ES butalbital Negati ve NG/mL <100 Not Available [facility] [address] [place] [address], [place], [address], 09/01/2022 14:10:00 08/25/19 23 08/28/2022 VIC TURAT ES phenobarbita l Negati ve NG/mL <100 Not Available [facility] [address] [place] [address], [place], [address], 09/01/2022 14:10:00 08/25/19 23 08/28/2022 BENZO DIAZE PINES alprazolam Negati ve NG/mL <20 Not Available [facility] [address] [place] [address], [place], [address], 09/01/2022 14:10:00 08/25/19 23 08/28/2022 BENZO DIAZE PINES hydroxyalpra zolam Negati ve NG/mL <40 Not Available [facility] [address] [place] [address], [place], [address], 09/01/2022 14:10:00 08/25/19 23 08/28/2022 BENZO DIAZE PINES chlordiazepo xide Negati ve NG/mL <20 Not Available [facility] [address] [place] [address], [place], [address], 09/01/2022 14:10:00 08/25/19 23 08/28/2022 BENZO DIAZE PINES clonazepam Negati ve NG/mL <100 Not Available [facility] [address] [place] [address], [place], [address], 09/01/2022 14:10:00 08/25/19 23 08/28/2022 BENZO DIAZE PINES aminoclonaze bisi Negati ve NG/mL <100 Not Available [facility] [address] [place] [address], [place], [address], 09/01/2022 14:10:00 08/25/19 23 08/28/2022 BENZO DIAZE PINES diazepam Negati ve NG/mL <20 Not Available [facility] [address] [place] [address], [place], [address], 09/01/2022 14:10:00 08/25/19 23 08/28/2022 BENZO DIAZE PINES nordiazepam Negati ve NG/mL <40 Not Available [facility] [address] [place] [address], [place], [address], 09/01/2022 14:10:00 08/25/19 23 08/28/2022 BENZO DIAZE PINES temazepam Negati ve NG/mL <50 Not Available [facility] [address] [place] [address], [place], [address], 09/01/2022 14:10:00 08/25/19 23 08/28/2022 BENZO DIAZE PINES oxazepam Negati ve NG/mL <50 Not Available [facility] [address] [place] [address], [place], [address], 09/01/2022 14:10:00 08/25/19 23 08/28/2022 BENZO DIAZE PINES lorazepam Negati ve NG/mL <50 Not Available [facility] [address] [place] [address], [place], [address], 09/01/2022 14:10:00 08/25/19 23 08/28/2022 BENZO DIAZE PINES triazolam Negati ve NG/mL <20 Not Available [facility] [address] [place] [address], [place], [address], 09/01/2022 14:10:00 08/25/19 23 08/28/2022 BENZO DIAZE PINES hydroxytriaz olam Negati ve NG/mL <20 Not Available [facility] [address] [place] [address], [place], [address], 09/01/2022 14:10:00 08/25/19 23 08/28/2022 BUPRE NORPH INE buprenorphin e Negati ve NG/mL <5 Not Available [facility] [address] [place] [address], [place], [address], 09/01/2022 14:10:01 08/25/19 23 08/28/2022 BUPRE NORPH INE norbuprenorp giovana Negati ve NG/mL <10 Not Available [facility] [address] [place] [address] [address], [place], [address], 09/01/2022 14:10:01 08/25/19 23 08/28/2022 GEOVANI SAUNDERS DS, NATTIFFANY AL THC-cooh 134 NG/mL <25 high Not Available [facility] [address] [place] [address] [address], [place], [address], 09/01/2022 14:10:01 08/25/19 23 08/28/2022 COCAI NE benzoylecgon ine Negati ve NG/mL <50 Not Available [facility] [address] [place] [address] [address], [place], [address], 09/01/2022 14:10:02 08/25/19 23 08/28/2022 FENTA NYLS fentanyl Negati ve NG/mL <3 Not Available [facility] [address] [place], [place] [address], [place], [address], 09/01/2022 14:10:02 08/25/19 23 08/28/2022 FENTA NYLS norfentanyl Negati ve NG/mL <8 Not Available [facility] [address] [place] [address] [address], [place], [address], 09/01/2022 14:10:02 08/25/19 23 08/28/2022 HEROI N METAB OLITE 6-COLLIN Negati ve NG/mL <10 Not Available [facility] [address] [place] [address] [address], [place], [address], 09/01/2022 14:10:03 08/25/19 23 08/28/2022 METHA DONE methadone Negati ve NG/mL <100 Not Available [facility] [address] [place] [address] [address], [place], [address], 09/01/2022 14:10:04 04/2708/28/2022 METHA DONE EDDP Negati ve NG/mL <100 Not Available [facility] [address] [place] [address], [place], [address], 09/01/2022 14:10:04 08/25/19 23 08/28/2022 METHY LENED IOXYA MPHET AMINE S MDMA Negati ve NG/mL <50 Not Available [facility] [address] [place] [address], [place], [address], 09/01/2022 14:10:04 08/25/19 23 08/28/2022 OPIAT ES codeine Negati ve NG/mL <50 Not Available [facility] [address] [place] [address], [place], [address], 09/01/2022 14:10:04 08/25/19 23 08/28/2022 OPIAT ES dihydrocodei ne Negati ve NG/mL <25 Not Available [facility] [address] [place], [place] [address], [place], [address], 09/01/2022 14:10:04 08/25/19 23 08/28/2022 OPIAT ES morphine Negati ve NG/mL <50 Not Available [facility] [address] [place] [address] [address], [place], [address], 09/01/2022 14:10:04 08/25/19 23 08/28/2022 OPIAT ES hydrocodone Negati ve NG/mL <50 Not Available [facility] [address] [place], [place] [address], [place], [address], 09/01/2022 14:10:04 08/25/19 23 08/28/2022 OPIAT ES hydromorphon e Negati ve NG/mL <50 Not Available [facility] [address] [place], [place] [address], [place], [address], 09/01/2022 14:10:04 08/25/19 23 08/28/2022 OPIOI DS AND OPIAT E ANALO GS dextromethor luke Negati ve NG/mL <100 Not Available [facility] [address] [place] [address], [place], [address], 09/01/2022 14:10:05 08/25/19 23 08/28/2022 OPIOI DS AND OPIAT E ANALO GS levorphanol Negati ve NG/mL <5 Not Available [facility] [address] [place] [address], [place], [address], 09/01/2022 14:10:05 08/25/19 23 08/28/2022 OPIOI DS AND OPIAT E ANALO GS naloxone Negati ve NG/mL <10 Not Available [facility] [address] [place] [address], [place], [address], 09/01/2022 14:10:05 08/25/19 23 08/28/2022 OXYCO DONE oxycodone 125 NG/mL <50 high Not Available [facility] [address] [place] [address], [place], [address], 09/01/2022 14:10:06 08/25/19 23 08/28/2022 OXYCO DONE noroxycodone 859 NG/mL <25 high Not Available The [facility] [address] [place] [address], [place], [address], 09/01/2022 14:10:06 08/25/19 23 08/28/2022 OXYCO DONE oxymorphone 142 NG/mL <50 high Not Available [facility] [address] [place] [address], [place], [address], 09/01/2022 14:10:06 08/25/19 23 08/28/2022 SKELE BARRIE MUSCL E RELAX ANTS carisoprodol Negati ve NG/mL <100 Not Available [facility] [address] [place] [address], [place], [address], 09/01/2022 14:10:06 08/25/19 23 08/28/2022 SKELE BARRIE MUSCL E RELAX ANTS meprobamate Negati ve NG/mL <200 Not Available [facility] [address] [place] [address] , [place], [address], 09/01/2022 14:10:06 08/25/19 23 08/28/2022 TAPEN TADOL tapentadol Negati ve NG/mL <25 Not Available [facility] [address] [place] [address] , [place], [address], 09/01/2022 14:10:07 08/25/19 23 08/28/2022 TRAMA DOL tramadol Negati ve NG/mL <100 Not Available [facility] [address] [place] [address] , [place], [address], 09/01/2022 14:10:07 08/25/19 23 08/28/2022 TRAMA DOL O-desmethylt ramadol Negati ve NG/mL <100 Not Available [facility] [address] [place] [address] , [place], [address], 09/01/2022 14:10:07 Result Notes None recorded. Problems Name Problem SNOMED Code Status Onset Date Resolution Date Notes Provider Name and Address Organization Details Recorded Time Chronic pain 78956297 Active 2022 Bruce Rich DO [address] [place] [address], [facility] [place], [address], [facility] 3 15:50:14 Lumbar post-laminecto my syndrome 212487666 Active 2022 Bruce Rich DO [address] [place] [address], [address], [place], [address], [facility] 3 15:50:25 Degeneration of cervical intervertebral disc 12317471 Active 2022 Bruce Rich DO [address] [place] [address], [address], [place], [address], [facility] 3 15:50:34 Lumbar spondylosis 382080833 Active 2022 [place] [address], [address], [place], [address], [facility] 3 15:51:34 Problem Notes None recorded. Medical [...] Updated DateTime 08/24/2022 147.32 cm 26.1 kg/m2 05183.05 g 98 [degF] Mary Anne Han [facility] 08/24/2022 16:56:22 Date Recorded Body height Body mass index (BMI) Body weight Body temperature Provider Name and Address Organization Details Last Updated DateTime 09/12/2022 147.32 cm 26.1 kg/m2 69293.05 g 98 [degF] Mary Anne aHn [facility] 09/12/2022 13:49:07 Social History Question Answer Notes LastModified by Organizat ion Details LastModified Time Tobacco Smoking Status Current Every Day Smoker Mary Anne echeverria [facility] 08/24/2022 15:31:42 What Is Your Level Of Alcohol Consumption? None [email or web address] Information not available 08/24/2022 How Much Tobacco Do You Chew? None [email or web address] Information not available 08/24/2022 What Is Your Occupation? Retired [email or web address] Information not available 08/24/2022 Last Dental Exam 10/07/2018 [email or web address] Informat ion not available 08/24/2022 Are You On Disability Or Applying For It? Yes Information not available 08/24/2022 Marital Status [email or web address] Informatio n not available 08/24/2022 Employment Status Disabled [email or web address] Informa tion not available 08/24/2022 Last Day Of Work 06/03/2014 [email or web address] Informat ion not available 08/24/2022 Currently Receiving Or Applying For Disability [email or web address] Information not available 08/24/2022 Illicit Drug Use? No Informa tion not available 08/24/2022 What Was The Date Of Your Most Recent Tobacco Screening? 09/12/2022 [email or web address] Information not available 09/12/2022 Do You Or Have You Ever Used Smokeless Tobacco? Never Used Smokeless Tobacco [email or web address] Information not available 08/24/2022 How Much Tobacco Do You Smoke? 0.25 PPD [email or web address] Information not available 08/24/2022 Do You Use Any Illicit Or Recreational Drugs? No [email or web address] Information not available 08/24/2022 Has Tobacco Cessation Counseling Been Provided? Yes [email or web address] Information not available 09/12/2022 On What Date Was Tobacco Cessation Counseling Provided? 09/12/2022 [email or web address] Information not available 09/12/2022 Sex: Unknown Functional [...] SNOMED-CT Code Diagnosis ICD10 Code Diagnosis Note [id number] Bruce Rich DO [facility] [place] [address] [address] 08/24/2022 15:16:08 08/24/2022 16:43:34 Chronic pain 23093951 G89.29 Degenerati on of cervical intervertebral disc 04245100 M50.30 Lumbar post-laminectomy syndrome 510996821 M96.1 Lumbar spondylosis 36483 0009 M47.896 Increased body mass index 93725970 E66.3 Patient was educated about healthy weight Tobacco us e cessation education 931684057 Z71.6 [id number] Bruce Rich DO [facility] [place] [address] [address] 09/12/2022 13:36:19 09/12/2022 14:25:47 Lumbar spondylosis 300461806 M47.896 Degenerati on of cervical intervertebral disc 96928297 M50.30 Lumbar post-laminectomy syndrome 619559717 M96.1 Chronic pain 35653307 G8 9.29 Health Concerns Section Related Observation LastModified by Organization Detai ls LastModified Time None Recorded Concern Status LastModified by Organization Details LastModified Time None Recorded Advance Directives Directive None Recorded Payers Encounter Date Sequence Insurance Name Policy Number Policy Crawley Covered Member ID Crawley Member ID Guarantor Name 08/24/2022 1 [facility] - DUAL ELIGIBLE (MEDICARE REPLACEMENT/A DVANTAGE - HMO) [facility] Sangita Umana [id number] Sangita Umana 09/12/2022 1 [facility] - DUAL ELIGIBLE (MEDICARE REPLACEMENT/A DVANTAGE - HMO) [facility] Sangita Umana [id number] Sangita Umana Notes Date Note Type Note [...] outside pain group since moving here from [place]. She completed a set of 3 cervical epidurals as well as several lumbar epidurals with benefit. She states she does not believe she has had injections since the winter. She had been on Bel[place]uca [place] but states the vocational case manager has changed since she was here and has caused an increase in pain. She was then transition to Percocet 5 mg and was taking it 3 times daily. She states they have had a change in their providers and she is looking for an outside pain group as they will no longer continue [place] [address] [place] [address], [address], [facility] 08/25/2022 11:39:12 09/12/2022 text/html Lumbar SpineReported bypatient.Location: [...] [facility] since moving here from [place]. She completed a set of 3 cervical epidurals as well as several lumbar epidurals with benefit. She had been on Belbuca with excellent [place] but states the vocational case manager has changed since she was here and [...] both oxycodone [place] [address] [facility], [place], [address], [facility] 09/12/2022 14:41:22 OBGyn Episode No OBEpisode recorded.
--- OUTSIDE RECORDS SUMMARY | 2024-08-22 13:54 | XMS_ITS | Clinical Summary ---
Author Organization [facility] Address [address] [place] [address] Care Team Providers Care Electric Power Superintendent Name Role Phone Zainab Kaiser Primary Care Provider [phone] Source Comments PLEASE NOTE, if this patient [...] Primary hypertension 11/09/2023 Chronic obstructive pulmonary disease ([facility]) 11/09/2023 Chronic bilateral back pain 11/09/2023 Major depressive disorder 11/09/2023 Stage 3 chronic kidney disease ([facility]) 024 ISSAC (generalized anxiety disorder) 11/09/2023 Osteoarthritis of hip 11/09/2023 DDD (degenerative disc disease), cervical 2023 Cervical stenosis of spine 11/09/2023 Encounters Date Type Department Care Team Description 06/09/2024 3:40 PM EST Office Visit [address] [phone] Zainab Kaiser PA Pain management [...] 06/09/2024 3:21 PM EST Plan of Treatment Upcoming Encounters Date Type Department Care Team (Late st Contact Info) Description 09/18/2024 1:40 PM EDT Office Visit [facility] [address] [place] [address] Zainab Kaiser PA [address] [place] [phone] Health Maintenance Due Date Last Done Comments Hepatitis C Screening 1957 Lipid Screening 1957 Tobacco Cessation Counseling (#1) 1957 Medicare Annual Wellness Visit 1975 Breast Cancer Screening (Mammogram) 1997 CT Colonography 2002 Colonoscopy 2002 Colorectal Cancer Screening 2002 FIT/gFOBT 2002 Fecal DNA 2002 Flexible Sigmoidoscopy 2002 Imm-Zoster, Recombinant (1 o f 2) 2007 Bone Density Screening 2022 Hdk-GECUV-31 (2 - season) 2023 01/17/2021 Imm-Influenza (#1) 2023 Depression Monitoring 03/22/2024 12/21/2023 [...] unspecified whether stage 3a or 3b CKD ([facility]) from Last 3 Months or Most Recently Relevant to Health Maintenance Results * REFERRAL TO ORTHOPEDICS (06/11/2024 3:00 AM EST) 06/11/2024 3:00 AM EST us Zainab JAMES REFERRAL Final Result * (ABNORMAL) COMPREHENSIVE METABOLIC PANEL (11/22/2023 4:09 PM EDT) GLUCOSE 82 65 - 99 mg/dL [facility] Comment: ?Fasting reference interval UREA NITROGEN (BUN) 27(H) 7 - 25 mg/dL [facility] CREATININE (blood) 1.57(H) 0.50 - 1.05 mg/dL [facility] EGFR 36(L) > OR = 60 mL/min/1. 73m2 [facility] BUN/CREATININE RATIO 17 6 - 22 (calc) [facility] SODIUM 138 135 - 146 mmol/L [facility] POTASSIUM 4.2 3.5 - 5.3 mmol/L [facility] CHLORIDE 102 98 - 110 mmol/L [facility] CARBON DIOXIDE 28 20 - 32 mmol/L [facility] CALCIUM 10.1 8.6 - 10.4 mg/dL [facility] PROTEIN, TOTAL 7.4 6.1 - 8.1 g/dL [facility] ALBUMIN 4.9 3.6 - 5.1 g/dL [facility] GLOBULIN 2.5 1.9 - 3.7 g/dL (calc) [facility] ALBUMIN/GLOBULI N RATIO 2.0 1.0 - 2.5 (calc) [facility] BILIRUBIN, TOTAL 0.7 0.2 - 1.2 mg/dL [facility] ALKALINE PHOSPHATASE 57 37 - 153 U/L [facility] AST 23 10 - 35 U/L [facility] ALT 18 6 - 29 U/L [facility] Blood Blood / Unknown 11/22/2023 4 :09 PM EDT 11/22/2023 4:09 PM EDT Narrative [facility] - 11/23/2023 10:52 AM EDT SPLIT 11/22/2023 FROM [id number] us Zainab JAMES [facility] - BLOOD DRAW Final Result [facility] [address] [address], [facility] [address] [address] from Last 3 Months or Most Recently Relevant to Health Maintenance Insurance [facility] MEDICARE [place]TE [place] MEDICA[place] Care Teams Electric Power Superintendent Relationship Specialty Start Date End Date Zainab Kaiser PA [address] [place] [address] PCP - General Primary Care 09/14/23
--- OUTSIDE RECORDS SUMMARY | 2024-08-22 13:54 | XMS_ITS | Continuity of Care Document ---
Author Organization [facility] ter Address [address] [place] [address] Phone Care Team Providers Care Operator Receptionist Name Role Phone Zainab Guzman MD Unavailable Unavailable Procedures Procedure Date Cancel Fee 1st Occurrence Advance Directives Directive Yes / No Effective Date File Name No Information Encounters Encounter Description Practice Location Reason(s) For Visit Diagnoses Date Provider Providers Copied on Encounter [facility], [address] [place], [id number], [place] tel:[phone] [address] [place] [address] No Information 3 Thomas Lamb. [facility] [employer] [place], [id number] , [place]. tel:[phone] Referring Provider: Zainab Guzman, [facility] [place] [place], [address] . tel:[phone] Family History Family Member Type Diagnosis Age At Onset No Information Payers Payer name Insurance type Covered green party ID Authoriza tion(s) No Information Social [...]
== END 2024-08-22 14:30 | disposition home or self-care (01) ==
LOC: HO.HNS 13:12
PROVIDERS: PCP Student in an Organized Health Care Education/Training Program; Visit Provider Physician Assistant
DX: M50.90 Cervical disc disorder, unspecified, unspecified cervical region (principal)
CPT/HCPCS: 99213

== ENCOUNTER → 2024-08-22 13:11 | Outpatient (BNVA) | payer OTHER, SELFPAY | PROVIDERS: PCP Student in an Organized Health Care Education/Training Program; Visit Provider Physician Assistant | DX: M50.90 Cervical disc disorder, unspecified, unspecified cervical region (principal) | CPT/HCPCS: 99212 ==

== ENCOUNTER 2024-09-02 13:02 | Outpatient (REF) | payer OTHER, SELFPAY ==
[2024-09-02 13:16] LABS: MANUAL DIFF FLAG NO
[2024-09-02 14:10] LABS: Basophils Absolute Auto 0.1 X10*3/uL (0.0-0.2); Basophils Percent Auto 0.8 % (0-2); Eosinophils Absolute Auto 0.2 X10*3/uL (0.0-0.4); Eosinophils Percent Auto 2.2 % (0-4); Hematocrit 41.6 % (37.0-47.0); Hemoglobin 13.4 g/dl (12.0-16.0); Imm Gran Abs Auto 0.02 X10*3/uL (0.00-0.03); Imm Gran Pct Auto 0.2 % (0.0-0.4); Lymphocytes Absolute Auto 2.8 X10*3/uL (1.2-4.9); Lymphocytes Percent Auto 33.7 % (20-40); Mean Corpuscular HGB Conc 32.2 g/dl (31.0-35.0); Mean Corpuscular Hemoglobin 32.3 pg (27.0-33.0); Mean Corpuscular Volume 100.2 fL (80.0-98.0); Mean Platelet Volume 10.5 fL (9.4-12.3); Monocytes Absolute Auto 0.5 X10*3/uL (0.1-1.2); Monocytes Percent Auto 6.4 % (2-11); Neutrophils Absolute Auto 4.7 x10*3/uL (2.0-8.3); Neutrophils Percent Auto 56.7 % (45-73); Platelet Count 257 X10*3/uL (160-400); Red Blood Count 4.15 X10*6/uL (4.20-5.50); Red Cell Distribution Width 13.2 % (11.0-16.0); White Blood Count 8.3 X10*3/uL (4.8-10.8)
--- OUTSIDE RECORDS SUMMARY | 2024-09-02 14:17 | XMS_ITS | Data Portability ---
Author Organization [place] - [facility] Address [address] [facility] [address] [place] [address] Assessment No assessment recorded. Plan of Treatment Reminders Order Date Submit Date Provider Last Modified By Organization Details Last Modified Time Details Appointments None recorded. Lab culture, urine 011 [employer], [address], [address], 3 04:00:47 Referral None recorded. Procedures None recorded. Surgeries None recorded. Imaging None recorded. Medication Orders Bactrim DS 800 mg-160 mg tablet 011 [facility] [id number], [address] , [place], [address], 3 04:00:47 Patient TargetsNo targets recorded. Patient InstructionsNo instructions recorded. Reason for Referral None Reported. Results Created Date Observation Date Name Description Value Unit Range Abnormal Flag Note LastModifiedBy Organization Detail LastModifiedTime 12/20/19 11 12/21/2010 cultu re, urine source urine-voided URINE- VOIDED Not Available [employer] [address], [address], 12/22/2010 03:34:08 12/20/19 11 12/21/2010 cultu re, urine culture, urine order ed test: cultu re,ur ine micro numbe r: [id number] test statu s: final speci men [...] A 1:100 0 dilut ion Not Available [employer] [address], [address], 12/22/2010 03:34:08 Result Notes None recorded. Problems Name Problem SNOMED Code Status Onset Date Resolution Date Notes Provider Name and Address Organization Details Recorded Time Dysuria 99692439 Active Not Available [facility] 01/21/2013 03:02:05 Problem Notes None recorded. Procedures Surgical History Date Name Laterality Status Provider Name and Address Organization Details Recorded Time 8 Hip Surgery completed Not Available [facility] 03/23/20 11 02:44:39 Imaging Results None recorded. [...] Details Last Updated DateTime 1 154.94 cm 81109.2 5712 g 33.3 kg/m2 98.1 [degF] 66 /min 98 % 98 % 128 mm[Hg] 81 mm[Hg] Amaya Fine (Elenita) [facility] 1 19:46:12 Social History Question Answer Notes LastModified by Organizat ion Details LastModified Time Tobacco Smoking Status Current Every Day Smoker Not Available [facility] 03/16/2011 05:14:21 What Is Your Level Of Alcohol Consumption? None Information not available 03/16/2011 What Is Your Level Of Caffeine Consumption? Occasional 7 Information not available 03/16/2011 Education 2 Year College ENRIQUE_PATCH_ 1111 7 Information not available 03/16/2011 What Is Your Occupation? Retired 7 Information not available 03/16/2011 Marital Status CAMILOPATCH_ 1111 7 Information not available 03/16/2011 Are You Sexually [...] SNOMED-CT Code Diagnosis ICD10 Code Diagnosis Note [id number] Ashtyn Bolivar, SP[employer] [facility] [address] [place] [address] 05/05/2010 18:12:34 05/05/2010 19:18:30 [id number] Zena Ramirez MD [facility] [address] [place] [address] 05/10/2010 17:06:55 05/10/2010 18:50:11 [id number] Essence Knowles DO [facility] [address] [facility] [place] [address] 05/31/2010 18:17:55 05/31/2010 19:23:28 [id number] Essence Knowles DO [facility] [address] [place] [address] 10/04/2010 17:25:28 10/04/2010 18:04:57 [id number] Essence O'Dandre, DO [facility] [address] [place] [address] 10/26/2010 15:30:56 10/26/2010 16:47:04 [id number] Nakul Boland, DO [facility] [address] [place] [address] 12/19/2010 19:34:25 12/19/2010 20:13:27 [id number] Essence Knowles, DO [facility] [address] [place] [address] 03/17/2011 14:44:01 03/17/2011 15:31:54 [id number] Essence Knowles, DO [facility] [address] [place] [address] 06/01/2011 12:28:37 06/01/2011 13:54:09 [id number] Alma Jones, SPIRAL [employer]ER-C [facility] [address] [place] [address] 07/18/2012 19:08:12 07/19/2012 13:17:25 [id number] Essence Knowles, DO [facility] [address] [place] [address] 05/22/2013 16:22:52 05/23/2013 10:09:02 [id number] Essence Knowles, DO [facility] [address] [place] [address] 12/15/2013 18:32:26 12/15/2013 19:40:41 [id number] Essence Knowles DO [facility] [address] [place] [address] 01/02/2014 10:53:17 01/02/2014 15:51:25 [id number] Essence Knowels, DO [facility] [address] [place] [address] 03/19/2014 15:04:03 03/19/2014 15:32:34 [id number] [facility], [employer] [facility] [address] [place] [address] 05/10/2015 15:37:23 05/11/2015 11:24:05 [id number] [facility], [employer] [facility] [address] [place] [address] 07/13/2015 15:34:17 07/14/2015 12:42:51 [id number] Barby Rogel MD [facility] [address] [place] [address] 05/15/2016 17:34:06 05/15/2016 19:08:03 [id number] ERIKA Crow [facility] [address] [place] [address] 08/18/2016 19:13:26 08/21/2016 03:16:32 [id number] [facility], [facility] [address] [place] [address] 08/06/2017 16:20:46 08/06/2017 21:19:04 [id number] [facility], [facility] [address] [place] [address] 02/11/2018 16:01:06 02/11/2018 21:36:59 [id number] Poonam Quinn MD [facility] [place] [facility] [address] [place] [address] 06/06/2018 16:55:47 06/10/2018 16:39:57 [id number] Poonam Quinn MD [facility] [place] [facility] [address] [place] [address] 06/19/2018 09:21:20 06/19/2018 10:16:22 [id number] [facility], [employer] [facility] [address] [place] [address] 09/02/2018 16:58:51 09/03/2018 09:16:52 [id number] [facility], [employer] [facility] [address] [place] [address] 11/12/2018 15:01:58 11/12/2018 18:51:23 [id number] [facility], [employer] [facility] [address] [place] [address] 11/29/2021 17:04:20 11/30/2021 06:58:32 [id number] [facility], [employer] [facility] [address] [place] [address] 12/15/2021 12:22:05 12/16/2021 08:34:45 [id number] Kai Davis MD [facility] [place] [address] [place] [address] 01/11/2022 16:24:26 01/11/2022 17:30:02 [id number] Kai Davis MD [facility] [place] [address] [facility] [place] [address] 02/21/2022 10:08:23 02/21/2022 14:16:00 [id number] [facility], [employer] [facility] [address] [place] [address] 03/06/2022 17:54:38 03/07/2022 23:28:20 [id number] [facility], [employer] [facility] [address] [place] [address] 05/11/2022 15:06:18 05/12/2022 06:02:02 Health Concerns Section Related Observation LastModified by Organization Detai ls LastModified Time None Recorded Concern Status LastModified by Organization Details LastModified Time None Recorded Advance Directives Directive None Recorded Payers Encounter Date Sequence Insurance Name Policy Number Policy Crawley Covered Member ID Crawley Member ID Guarantor Name 12/19/2010 1 [facility] [place] [facility] Sangita Umana [id number] Sangita Umana OBGyn Episode No OBEpisode recorded.
--- OUTSIDE RECORDS SUMMARY | 2024-09-02 14:17 | XMS_ITS | Continuity of Care Document ---
Author Organization [facility] ter Address [address] [place] [address] Phone Care Team Providers Care Marble Mechanic Helper Name Role Phone Zainab Guzman MD Unavailable Unavailable Procedures Procedure Date Cancel Fee 1st Occurrence Advance Directives Directive Yes / No Effective Date File Name No Information Encounters Encounter Description Practice Location Reason(s) For Visit Diagnoses Date Provider Providers Copied on Encounter [facility], [address] [place], [id number], [place] tel:[phone] [address] [place] [address] No Information 3 Thomas Lamb. [facility] [place] [employer] [place], [id number] , [place]. tel:[phone] Referring Provider: Zainab Guzman, [facility] [place], [address] . tel:[phone] Family History Family Member Type Diagnosis Age [...]
--- OUTSIDE RECORDS SUMMARY | 2024-09-02 14:17 | XMS_ITS | Data Portability ---
Author Organization [place] - [facility], autoContract - [facility] Address [address] [place] [address] Care Team Providers Care Medical Writer Name Role Phone REBECCA ESCALONA OTHER [phone] MARIA GARCIA OTHER Assessment No assessment recorded. [...] By Organization Details Last Modified Time 06/06/2018 [id number] deciding about using medicines to quit smoking [...] telem etry No observ ation record ed. [employer] [address], [place], [address], 06/28/2018 17:37:34 06/24/19 19 [place], echoc ardio gram No observ ation record ed. BARCODE Not Available 2018 18:52:06 Result Notes None recorded. Problems Name Problem SNOMED Code Status Onset Date Resolution Date Notes Provider Name and Address Organization Details Recorded Time Palpitati ons 55160482 Active 2017 Sena Kurt, RMA null, [facility] 8 12:57:03 Obesity 113767431 Active Sena Kurt, RMA null, [facility] 8 12:57:03 Degenerat ion of lumbar intervert ebral disc 24878289 Completed 03/14/2018 Sena Kurt, RMA null, [facility] 8 12:58:14 Visual disturban ce 76054811 Completed 201703/14/2018 Sena Kurt, RMA null, [facility] 8 12:57:44 Generaliz ed osteoarth ritis 186191656 Completed 03/14/2018 Sena Kurt, RMA null, [facility] 8 12:58:34 Intermitt ent palpitati ons 714967426 Active 2017 Sena Kurt, RMA null, [facility] 8 12:57:03 Depressiv e disorder 59018044 Active Sena Kurt, RMA null, [facility] 8 12:57:03 Chronic pain syndrome 846107359 Completed 03/14/2018 Sena Kurt, RMA null, [facility] 8 12:58:43 Mild memory disturban ce 186351624 Completed 201703/14/2018 Sena Kurt, RMA null, [facility] 8 12:58:23 Increased frequency of urination 763334368 Completed 201703/14/2018 Sena Kurt RMA null, [facility] 8 12:58:27 Carpal tunnel syndrome 34345356 Active Sena Kurt RMA null, [facility] 8 12:57:03 Long-term current use of opiate analgesic drug 782183252041 108 Active 2017 Sena Kurt, RMA null, [facility] 8 12:57:03 Asthma 996948216 Completed 03/14/2018 Sena Kurt, RMA null, [facility] 8 12:58:31 Mixed anxiety and depressiv e disorder 522884964 Completed 03/14/2018 Sena Kurt, RMA null, [facility] 8 12:58:37 Benign essential hypertens ion 7928095 Active Sena Kurt, RMA null, [facility] 8 12:57:03 Shoulder joint pain 065615433 Completed 03/14/2018 Sena Kurt, RMA null, [facility] 8 12:58:47 Cigarette smoker 56263064 Active Sena Kurt, RMA null, [facility] 8 12:57:03 Closed fracture of phalanx of foot 06465256 Completed 03/14/2018 Sena Kurt, RMA null, [facility] 8 12:57:39 Feeling nervous 842308593 Completed 03/14/2018 Sena Kurt, RMA null, [facility] 8 12:57:57 Osteopeni a 309434935 Completed 03/14/2018 Sena Kurt, RMA null, [facility] 8 12:58:01 Overweigh t 419747651 Completed 201703/14/2018 Sena Kurt, RMA null, [facility] 8 12:58:11 Degenerat ion of lumbosacr al intervert ebral disc 91140414 Completed 03/14/2018 Sena Hicks RMA null, [facility] 8 12:57:48 Gastroeso phageal reflux disease 430296105 Active Sena Hicks RMA null, [facility] 8 12:57:03 Menopausa l symptom 54284628 Completed 03/14/2018 Sean Hicks RMA null, [facility] 8 12:58:18 History of hepatitis C 059189467870 01 Completed 201703/14/2018 Sena Kurt RMA null, [facility] 8 12:57:36 Malaise and fatigue 828228936 Completed 201703/14/2018 Sena Kurt RMA null, [facility] 8 12:58:05 Problem Notes None recorded. Procedures Surgical History Date Name Laterality Status Provider Name and Address Organization Details Recorded Time 06/19/19 19 Echocardiogram completed Nida Reyes [facility] 06/24/2018 17:47:42 Other completed Sena Hicks, ARVINDA [facility] 02/18/2018 10:05:38 Other completed Sena Kurt, ARVINDA [facility] 02/18/2018 10:05:58 Other completed Sena Hicks, ARVINDA [facility] 02/18/2018 10:06:10 Cholecystectomy w/cholang completed Sena Hicks, ARVINDA [facility] 02/18/2018 10:06:30 Tubal Ligation completed ARVIND TapiaA [facility] 02/18/2018 14:35:35 Imaging Results Imaging Date Name Status LastModified by Organization Details LastModified Time 06/06/2018 electrocardiogram completed Informa tion not available 06/06/2018 18:44:44 06/19/2018 US, echocardiogram completed [facility] Inform ation not available 06/19/2018 10:19:56 06/19/2018 cardiac telemetry completed [employer] [address], [place], [address], 06/28/2018 17:37:34 06/24/2018 US, echocardiogram completed BARCODE [...] Updated DateTime 9 152.4 cm 27.7 kg/m2 88506.1 2 g 70 /min 98 % 98 % 122 mm[Hg] 80 mm[Hg] Yohana Song [facility] 9 17:16:31 Social History Question Answer Notes LastModified by [employer] Details LastModified Time Tobacco Smoking Status Current Every Day Smoker Sena Hicks, SUNG null, [facility] 02/18/2018 10:04:50 Do You Have An [...] Functional Status Question Answer Note LastModified by [employer] Details LastModified Time What is your exercise [...] SNOMED-CT Code Diagnosis ICD10 Code Diagnosis Note [id number] Ashtyn Bolivar, DISPLAY ASSOCIATE [facility] [address] [facility] [place] [address] 05/05/2010 18:12:34 05/05/2010 19:18:30 [id number] Zena Ramirez MD [facility] [address] [facility] [place] [address] 05/10/2010 17:06:55 05/10/2010 18:50:11 [id number] Essence Knowles, DO [facility] [address] [facility] [address] [place] [address] 05/31/2010 18:17:55 05/31/2010 19:23:28 [id number] Essence Knowles, DO [facility] [address] [facility] 100 [place] [address] 10/04/2010 17:25:28 10/04/2010 18:04:57 [id number] Essence Knowles, DO [facility] [address] [facility] 100 [place] [address] 10/26/2010 15:30:56 10/26/2010 16:47:04 [id number] Nakul Boland, DO [facility] [address] [place] [address] 12/19/2010 19:34:25 12/19/2010 20:13:27 [id number] Essence Knowles, DO [facility] [address] [facility] 100 [place] [address] 03/17/2011 14:44:01 03/17/2011 15:31:54 [id number] Essence Knowles, DO [facility] [address] [place] [address] 06/01/2011 12:28:37 06/01/2011 13:54:09 [id number] Alma Jones, DISPLAY ASSOCIATE-C [facility] [address] [place] [address] 07/18/2012 19:08:12 07/19/2012 13:17:25 [id number] Essence Knowles, DO [facility] [address] [place] [address] 05/22/2013 16:22:52 05/23/2013 10:09:02 [id number] Essence Knowles, DO [facility] [address] [place] [address] 12/15/2013 18:32:26 12/15/2013 19:40:41 [id number] Essence Knowles, DO [facility] [address] [place] [address] 01/02/2014 10:53:17 01/02/2014 15:51:25 [id number] Essence Knowles, DO [facility] [address] [place] [address] 03/19/2014 15:04:03 03/19/2014 15:32:34 [id number] ASHTYN Dyer [facility] [address] [place] [address] 05/10/2015 15:37:23 05/11/2015 11:24:05 [id number] Ashtyn Bolivar, DISPLAY ASSOCIATE [facility] [address] [facility] [place] [address] 07/13/2015 15:34:17 07/14/2015 12:42:51 [id number] Barby Rogel MD [facility] [address] [place] [address] 05/15/2016 17:34:06 05/15/2016 19:08:03 [id number] SAQIB Crow [facility] [address] [place] [address] 08/18/2016 19:13:26 08/21/2016 03:16:32 [id number] [facility] [address] [place] [address] 08/06/2017 16:20:46 08/06/2017 21:19:04 [id number] [facility] DISPLAY ASSOCIATE [facility] [address] [facility] [place] [address] 02/11/2018 16:01:06 02/11/2018 21:36:59 [id number] MD kirstin [facility] [place] [facility] [address] [place] [address] 06/06/2018 16:55:47 06/10/2018 16:39:57 Overweight 353865470 E66.3 Diet: 1800 Calories Low Glycemic Diet Exercise: Work up to 30 min 5x/week as tolerated Electrocar diogram abnormal 339841441 R94.31 LVH Intermitte nt palpitations 799084197 R00.2 once per week last few seconds fast and regular for 4 to 5 beats for last 4- 5 yearsTSH normal Essential hypertension 98363679 I10 controlled with treatment Tobacco de pendence syndrome 84940417 F17.222 [id number] Poonam Quinn MD [facility] [place] [facility] [address] [place] [address] 06/19/2018 09:21:20 06/19/2018 10:16:22 Electrocardiogram abnormal 955504187 R94.31 LVH [id number] [facility], DISPLAY ASSOCIATE [facility] [address] [place] [address] 09/02/2018 16:58:51 09/03/2018 09:16:52 [id number] Ashtyn Kendrick, DISPLAY ASSOCIATE [facility] [address] [place] [address] 11/12/2018 15:01:58 11/12/2018 18:51:23 [id number] Ashtyn Bolivar, DISPLAY ASSOCIATE [facility] [address] [place] [address] 11/29/2021 17:04:20 11/30/2021 06:58:32 [id number] Ashtynalistair Bolivar, DISPLAY ASSOCIATE [facility] [address] [place] [address] 12/15/2021 12:22:05 12/16/2021 08:34:45 [id number] Kai Davis MD [facility] [place] [address] [place] [address] 01/11/2022 16:24:26 01/11/2022 17:30:02 [id number] Kai Davis MD [facility] [place] [address] [place] [address] 02/21/2022 10:08:23 02/21/2022 14:16:00 [id number] Ashtynalistair Bolivar, DISPLAY ASSOCIATE [facility] [address] [place] [address] 03/06/2022 17:54:38 03/07/2022 23:28:20 [id number] Ashtynalistair Bolivar, DISPLAY ASSOCIATE [facility] [address] [place] [address] 05/11/2022 15:06:18 05/12/2022 06:02:02 Health Concerns Section Related Observation LastModified by Organization Detai ls LastModified Time None Recorded Concern Status LastModified by Organization Details LastModified Time None Recorded Advance Directives Directive N: Payers Encounter Date Sequence Insurance Name Policy Number Policy Crawley Covered Member ID Crawley Member ID Guarantor Name 06/06/2018 1 [facility]IG[facility] (MEDICARE REPLACEMENT/ ADVANTAGE - HMO) [facility] Grace Dong [id number] Sangita Grace Dong 06/06/2018 2 [facility] (MEDICAID HMO) Sangita Grace Dong [id number] Sangita Grace Dong 06/19/2018 1 [facility] - DUAL ELIGIBLE (MEDICARE REPLACEMENT/ ADVANTAGE - HMO) ALESSANDROELISE Grace Dong [id number] Sangita Grace Dong 06/19/2018 2 [facility] (MEDICAID HMO) Sangita Grace Dong [id number] Sangita Grace Dong Notes Date Note Type Note Provider Name and Address Organization Details Recorded Time 06/06/2018 text/html [facility] H PI 1Reported bypatient.Notes:Saqib nieto seen [...] or near [place] [address], [place], [address], [facility] 06/06/2018 18:09:31 OBGyn Episode No OBEpisode recorded.
--- OUTSIDE RECORDS SUMMARY | 2024-09-02 14:18 | XMS_ITS | Clinical Summary ---
Author Organization [facility] Address [address] [place] [address] Care Team Providers Care Dude Wrangler Name Role Phone Zainab Kaiser Primary Care Provider [phone] Source Comments PLEASE NOTE, if this patient [...] Primary hypertension 11/09/2023 Chronic obstructive pulmonary disease ([facility]) 11/09/2023 Chronic bilateral back pain 11/09/2023 Major depressive disorder 11/09/2023 Stage 3 chronic kidney disease ([facility]) 024 ISSAC (generalized anxiety disorder) 11/09/2023 Osteoarthritis of hip 11/09/2023 DDD (degenerative disc disease), cervical 2023 Cervical stenosis of spine 11/09/2023 Encounters Date Type Department Care Team Description 06/09/2024 3:40 PM EST Office Visit [address] [address] Zainab Kaiser PA Pain management [...] Description 09/18/2024 1:40 PM EDT Office Visit [facility] [address] [place] [address] Zainab Kaiser PA [address] [place] [address] Health Maintenance Due Date Last Done Comments Hepatitis C Screening 1957 Lipid Screening 1957 Tobacco Cessation Counseling (#1) 1955 Medicare Annual Wellness Visit 1975 Breast Cancer Screening (Mammogram) 1997 CT Colonography 2002 Colonoscopy 2002 Colorectal Cancer Screening 2002 FIT/gFOBT 2002 Fecal DNA 2002 Flexible Sigmoidoscopy 2002 Imm-Zoster, Recombinant (1 o f 2) 2007 Bone Density Screening 2022 [id number] (2 - season) 2023 01/17/2021 Imm-Influenza (#1) [...] unspecified whether stage 3a or 3b CKD ([facility]) from Last 3 Months or Most Recently Relevant to Health Maintenance Results * REFERRAL TO ORTHOPEDICS (06/11/2024 3:00 AM EST) 06/11/2024 3:00 AM EST us Zainab JAMES REFERRAL Final Result * (ABNORMAL) COMPREHENSIVE METABOLIC PANEL (11/22/2023 4:09 PM EDT) GLUCOSE 82 65 - 99 mg/dL [facility] Comment: ?Fasting reference interval UREA NITROGEN (BUN) 27(H) 7 - 25 mg/dL [facility] CREATININE (blood) 1.57(H) 0.50 - 1.05 mg/dL [facility] EGFR 36(L) > OR = 60 mL/min/1. 73m2 [facility] BUN/CREATININE RATIO 17 6 - 22 (calc) [facility] SODIUM 138 135 - 146 mmol/L [facility] POTASSIUM 4.2 3.5 - 5.3 mmol/L [facility] CHLORIDE 102 98 - 110 mmol/L [facility] CARBON DIOXIDE 28 20 - 32 mmol/L [facility] CALCIUM 10.1 8.6 - 10.4 mg/dL [facility] PROTEIN, TOTAL 7.4 6.1 - 8.1 g/dL [facility] ALBUMIN 4.9 3.6 - 5.1 g/dL [facility] GLOBULIN 2.5 1.9 - 3.7 g/dL (calc) [facility] ALBUMIN/GLOBULI N RATIO 2.0 1.0 - 2.5 (calc) [facility] BILIRUBIN, TOTAL 0.7 0.2 - 1.2 mg/dL [facility] ALKALINE PHOSPHATASE 57 37 - 153 U/L [facility] AST 23 10 - 35 U/L [facility] ALT 18 6 - 29 U/L [facility] Blood Blood / Unknown 11/22/2023 4 :09 PM EDT 11/22/2023 4:09 PM EDT Narrative [facility] [facility] - 11/23/2023 10:52 AM EDT SPLIT 11/22/2023 FROM [id number] us Zainab JAMES LAB - BLOOD DRAW Final Result [facility] [address] [address], [facility] [address] [address] from Last 3 Months or Most Recently Relevant to Health Maintenance Insurance [facility] MEDICARE [place]TE [place] Care Teams Dude Wrangler Relationship Specialty Start Date End Date Zainab Kaiser PA [address] [place] [address] PCP - General Primary Care 09/14/23
--- OUTSIDE RECORDS SUMMARY | 2024-09-02 14:18 | XMS_ITS | Data Portability ---
Author Organization [facility] - MARY Parks Address [address] [place] [address] Care Team Providers Care Supervisor Title Name Role Phone MARY ESCOTO Primary Care Provider [phone] Assessment No assessment recorded. Plan of Treatment [...] By Organization Details Last Modified Time 08/24/2022 [id number] learning about healthy weight Not available 08/24/2022 [...] lumbar MBB/RFA Not available 08/24/2022 16:51:57 09/12/2022 [id number] We will rereques t records from prior [...] mg/dL 20 - 400 Not Available [facility] [address] [place] [address], [place], [address], 08/25/2022 22:53:13 08/25/19 23 08/25/2022 VALID ITY pH Normal 4.0 - 9.5 Not Available [facility] [address] [place] [address], [place], [address], 08/25/2022 22:53:13 08/25/19 23 08/25/2022 VALID ITY specific gravity Normal 1.0030 - 1.0350 normal Not Available [facility] [address] [place] [address], [place], [address], 08/25/2022 22:53:13 08/25/19 23 08/25/2022 UDT SCREE N opi Neg Not Available [facility] [address] [place] [address], [place], [address], 08/25/2022 22:53:13 08/25/19 23 08/25/2022 UDT SCREE N THC Pos Not Available [facility] [address] [place] [address], [place], [address], 08/25/2022 22:53:13 08/25/19 23 08/25/2022 UDT SCREE N fentanyl Neg Not Available [facility] [address] [place] [address], [place], [address], 08/25/2022 22:53:13 08/25/19 23 08/25/2022 UDT SCREE N kaur Neg Not Available [facility] [address] [place], [place] [address], [place], [address], 08/25/2022 22:53:13 08/25/19 23 08/25/2022 UDT SCREE N madisyn Neg Not Available [facility] [address] [place], [place] [address], [place], [address], 08/25/2022 22:53:13 08/25/19 23 08/25/2022 UDT SCREE N pcp Neg Not Available [facility] [address] [place], [place] [address], [place], [address], 08/25/2022 22:53:13 08/25/19 23 08/25/2022 UDT SCREE N mdn Neg Not Available [facility] [address] [place], [place] [address], [place], [address], 08/25/2022 22:53:13 08/25/19 23 08/25/2022 UDT SCREE N oxy Pos Not Available [facility] [address] [place], [place] [address], [place], [address], 08/25/2022 22:53:13 08/25/19 23 08/25/2022 UDT SCREE N bup Neg Not Available [facility] [address] [place] [address], [place], [address], 08/25/2022 22:53:13 08/25/19 23 08/25/2022 UDT SCREE N amp Neg Not Available [facility] [address] [place], [place] [address], [place], [address], 08/25/2022 22:53:13 08/25/19 23 08/25/2022 UDT SCREE N ETOH Neg <50.0 Not Available [facility] [address] [place] [address], [place], [address], 08/25/2022 22:53:13 08/25/19 23 08/28/2022 ALCOH OL BIOMA RKERS etg Negati ve NG/mL <500 Not Available [facility] [address] [place] [address], [place], [address], 09/01/2022 14:09:59 08/25/19 23 08/28/2022 ALCOH OL BIOMA RKERS ets Negati ve NG/mL <500 Not Available [facility] [address] [place] [address], [place], [address], 09/01/2022 14:09:59 08/25/19 23 08/28/2022 AMPHE TAMIN ES methamphetam ine Negati ve NG/mL <100 Not Available [facility] [address] [place] [address], [place], [address], 09/01/2022 14:09:59 08/25/19 23 08/28/2022 AMPHE TAMIN ES amphetamine Negati ve NG/mL <100 Not Available [facility] [address] [place] [address], [place], [address], 09/01/2022 14:09:59 08/25/19 23 08/28/2022 AMPHE TAMIN ES phentermine Negati ve NG/mL <100 Not Available [facility] [address] [place] [address], [place], [address], 09/01/2022 14:09:59 08/25/19 23 08/28/2022 VIC TURAT ES butalbital Negati ve NG/mL <100 Not Available [facility] [address] [place] [address], [place], [address], 09/01/2022 14:10:00 08/25/19 23 08/28/2022 VIC TURAT ES phenobarbita l Negati ve NG/mL <100 Not Available [facility] [address] [place] [address], [place], [address], 09/01/2022 14:10:00 08/25/19 23 08/28/2022 BENZO DIAZE PINES alprazolam Negati ve NG/mL <20 Not Available [facility] [address] [place] [address], [place], [address], 09/01/2022 14:10:00 08/25/19 23 08/28/2022 BENZO DIAZE PINES hydroxyalpra zolam Negati ve NG/mL <40 Not Available [facility] [address] [place] [address], [place], [address], 09/01/2022 14:10:00 08/25/19 23 08/28/2022 BENZO DIAZE PINES chlordiazepo xide Negati ve NG/mL <20 Not Available [facility] [address] [place] [address], [place], [address], 09/01/2022 14:10:00 08/25/19 23 08/28/2022 BENZO DIAZE PINES clonazepam Negati ve NG/mL <100 Not Available [facility] [address] [place] [address], [place], [address], 09/01/2022 14:10:00 08/25/19 23 08/28/2022 BENZO DIAZE PINES aminoclonaze bisi Negati ve NG/mL <100 Not Available [facility] [address] [place] [address], [place], [address], 09/01/2022 14:10:00 08/25/19 23 08/28/2022 BENZO DIAZE PINES diazepam Negati ve NG/mL <20 Not Available [facility] [address] [place] [address], [place], [address], 09/01/2022 14:10:00 08/25/19 23 08/28/2022 BENZO DIAZE PINES nordiazepam Negati ve NG/mL <40 Not Available [facility] [address] [place] [address], [place], [address], 09/01/2022 14:10:00 08/25/19 23 08/28/2022 BENZO DIAZE PINES temazepam Negati ve NG/mL <50 Not Available [facility] [address] [place] [address], [place], [address], 09/01/2022 14:10:00 08/25/19 23 08/28/2022 BENZO DIAZE PINES oxazepam Negati ve NG/mL <50 Not Available [facility] [address] [place] [address], [place], [address], 09/01/2022 14:10:00 08/25/19 23 08/28/2022 BENZO DIAZE PINES lorazepam Negati ve NG/mL <50 Not Available [facility] [address] [place] [address], [place], [address], 09/01/2022 14:10:00 08/25/19 23 08/28/2022 BENZO DIAZE PINES triazolam Negati ve NG/mL <20 Not Available [facility] [address] [place] [address], [place], [address], 09/01/2022 14:10:00 08/25/19 23 08/28/2022 BENZO DIAZE PINES hydroxytriaz olam Negati ve NG/mL <20 Not Available [facility] [address] [place] [address], [place], [address], 09/01/2022 14:10:00 08/25/19 23 08/28/2022 BUPRE NORPH INE buprenorphin e Negati ve NG/mL <5 Not Available [facility] [address] [place] [address], [place], [address], 09/01/2022 14:10:01 08/25/19 23 08/28/2022 BUPRE NORPH INE norbuprenorp giovana Negati ve NG/mL <10 Not Available [facility] [address] [place] [address] [address], [place], [address], 09/01/2022 14:10:01 08/25/19 23 08/28/2022 GEOVANI SAUNDERS DS, NATTIFFANY AL THC-cooh 134 NG/mL <25 high Not Available [facility] [address] [place] [address] [address], [place], [address], 09/01/2022 14:10:01 08/25/19 23 08/28/2022 COCAI NE benzoylecgon ine Negati ve NG/mL <50 Not Available [facility] [address] [place] [address] [address], [place], [address], 09/01/2022 14:10:02 08/25/19 23 08/28/2022 FENTA NYLS fentanyl Negati ve NG/mL <3 Not Available [facility] [address] [place], [place] [address], [place], [address], 09/01/2022 14:10:02 08/25/19 23 08/28/2022 FENTA NYLS norfentanyl Negati ve NG/mL <8 Not Available [facility] [address] [place] [address] [address], [place], [address], 09/01/2022 14:10:02 08/25/19 23 08/28/2022 HEROI N METAB OLITE 6-COLLIN Negati ve NG/mL <10 Not Available [facility] [address] [place] [address] [address], [place], [address], 09/01/2022 14:10:03 08/25/19 23 08/28/2022 METHA DONE methadone Negati ve NG/mL <100 Not Available [facility] [address] [place] [address] [address], [place], [address], 09/01/2022 14:10:04 04/2708/28/2022 METHA DONE EDDP Negati ve NG/mL <100 Not Available [facility] [address] [place] [address], [place], [address], 09/01/2022 14:10:04 08/25/19 23 08/28/2022 METHY LENED IOXYA MPHET AMINE S MDMA Negati ve NG/mL <50 Not Available [facility] [address] [place] [address], [place], [address], 09/01/2022 14:10:04 08/25/19 23 08/28/2022 OPIAT ES codeine Negati ve NG/mL <50 Not Available [facility] [address] [place] [address], [place], [address], 09/01/2022 14:10:04 08/25/19 23 08/28/2022 OPIAT ES dihydrocodei ne Negati ve NG/mL <25 Not Available [facility] [address] [place], [place] [address], [place], [address], 09/01/2022 14:10:04 08/25/19 23 08/28/2022 OPIAT ES morphine Negati ve NG/mL <50 Not Available [facility] [address] [place] [address] [address], [place], [address], 09/01/2022 14:10:04 08/25/19 23 08/28/2022 OPIAT ES hydrocodone Negati ve NG/mL <50 Not Available [facility] [address] [place], [place] [address], [place], [address], 09/01/2022 14:10:04 08/25/19 23 08/28/2022 OPIAT ES hydromorphon e Negati ve NG/mL <50 Not Available [facility] [address] [place], [place] [address], [place], [address], 09/01/2022 14:10:04 08/25/19 23 08/28/2022 OPIOI DS AND OPIAT E ANALO GS dextromethor luke Negati ve NG/mL <100 Not Available [facility] [address] [place] [address], [place], [address], 09/01/2022 14:10:05 08/25/19 23 08/28/2022 OPIOI DS AND OPIAT E ANALO GS levorphanol Negati ve NG/mL <5 Not Available [facility] [address] [place] [address], [place], [address], 09/01/2022 14:10:05 08/25/19 23 08/28/2022 OPIOI DS AND OPIAT E ANALO GS naloxone Negati ve NG/mL <10 Not Available [facility] [address] [place] [address], [place], [address], 09/01/2022 14:10:05 08/25/19 23 08/28/2022 OXYCO DONE oxycodone 125 NG/mL <50 high Not Available [facility] [address] [place] [address], [place], [address], 09/01/2022 14:10:06 08/25/19 23 08/28/2022 OXYCO DONE noroxycodone 859 NG/mL <25 high Not Available The [facility] [address] [place] [address], [place], [address], 09/01/2022 14:10:06 08/25/19 23 08/28/2022 OXYCO DONE oxymorphone 142 NG/mL <50 high Not Available [facility] [address] [place] [address], [place], [address], 09/01/2022 14:10:06 08/25/19 23 08/28/2022 SKELE BARRIE MUSCL E RELAX ANTS carisoprodol Negati ve NG/mL <100 Not Available [facility] [address] [place] [address], [place], [address], 09/01/2022 14:10:06 08/25/19 23 08/28/2022 SKELE BARRIE MUSCL E RELAX ANTS meprobamate Negati ve NG/mL <200 Not Available [facility] [address] [place] [address] , [place], [address], 09/01/2022 14:10:06 08/25/19 23 08/28/2022 TAPEN TADOL tapentadol Negati ve NG/mL <25 Not Available [facility] [address] [place] [address] , [place], [address], 09/01/2022 14:10:07 08/25/19 23 08/28/2022 TRAMA DOL tramadol Negati ve NG/mL <100 Not Available [facility] [address] [place] [address] , [place], [address], 09/01/2022 14:10:07 08/25/19 23 08/28/2022 TRAMA DOL O-desmethylt ramadol Negati ve NG/mL <100 Not Available [facility] [address] [place] [address] , [place], [address], 09/01/2022 14:10:07 Result Notes None recorded. Problems Name Problem SNOMED Code Status Onset Date Resolution Date Notes Provider Name and Address Organization Details Recorded Time Chronic pain 33105501 Active 2022 Bruce Rich DO [address] [place] [address], [facility], [place], [address], [facility] 3 15:50:14 Lumbar post-laminecto my syndrome 525021581 Active 2022 Bruce Rich DO [address] [place] [address], [address], [place], [address], [facility] 3 15:50:25 Degeneration of cervical intervertebral disc 03349199 Active 2022 Bruce Rich DO [address] [place] [address], [address], [place], [address], [facility] 3 15:50:34 Lumbar spondylosis 646013372 Active 2022 [place] [address], [address], [place], [address], [facility] 3 15:51:34 Problem Notes None [...] Updated DateTime 08/24/2022 147.32 cm 26.1 kg/m2 58406.05 g 98 [degF] Mary Anne Han [facility] 08/24/2022 16:56:22 Date Recorded Body height Body mass index (BMI) Body weight Body temperature Provider Name and Address Organization Details Last Updated DateTime 09/12/2022 147.32 cm 26.1 kg/m2 87852.05 g 98 [degF] Mary Anne Han [facility] 09/12/2022 13:49:07 Social History Question Answer Notes LastModified by Organizat ion Details LastModified Time Tobacco Smoking Status Current Every Day Smoker Mary Anne echeverria [facility] 08/24/2022 15:31:42 What Is Your Level Of Alcohol Consumption? None [email or web address] Information not available 08/24/2022 How Much Tobacco Do You Chew? None [email or web address] Information not available 08/24/2022 What Is Your Occupation? Retired [email or web address] Information not available 08/24/2022 Last Dental Exam 10/07/2018 [email or web address] Informat ion not available 08/24/2022 Are You On Disability Or Applying For It? Yes [email or web address] Information not available 08/24/2022 Marital Status [email or web address] Informatio n not available 08/24/2022 Employment Status Disabled [email or web address] Informa tion not available 08/24/2022 Last Day Of Work 06/03/2014 [email or web address] Informat ion not available 08/24/2022 Currently Receiving Or Applying For Disability [email or web address] Information not available 08/24/2022 Illicit Drug Use? No [email or web address] Informa tion not available 08/24/2022 What Was The Date Of Your Most Recent Tobacco Screening? 09/12/2022 [email or web address] Information not available 09/12/2022 Do You Or Have You Ever Used Smokeless Tobacco? Never Used Smokeless Tobacco [email or web address] Information not available 08/24/2022 How Much Tobacco Do You Smoke? 0.25 PPD [email or web address] Information not available 08/24/2022 Do You Use Any Illicit Or Recreational Drugs? No [email or web address] Information not available 08/24/2022 Has Tobacco Cessation Counseling Been Provided? Yes [email or web address] Information not available 09/12/2022 On What Date Was Tobacco Cessation Counseling Provided? 09/12/2022 [email or web address] Information not available 09/12/2022 Sex: Unknown Functional [...] SNOMED-CT Code Diagnosis ICD10 Code Diagnosis Note [id number] Bruce Rich DO [facility] [place] [address] [address] 08/24/2022 15:16:08 08/24/2022 16:43:34 Chronic pain 53182752 G89.29 Degenerati on of cervical intervertebral disc 98651669 M50.30 Lumbar post-laminectomy syndrome 567865132 M96.1 Lumbar spondylosis 46960 0009 M47.896 Increased body mass index 72093114 E66.3 Patient was educated about healthy weight Tobacco us e cessation education 656153180 Z71.6 [id number] Bruce Rich DO [facility] [place] [address] [address] 09/12/2022 13:36:19 09/12/2022 14:25:47 Lumbar spondylosis 743330415 M47.896 Degenerati on of cervical intervertebral disc 74416059 M50.30 Lumbar post-laminectomy syndrome 781458558 M96.1 Chronic pain 02594409 G8 9.29 Health Concerns Section Related Observation LastModified by Organization Detai ls LastModified Time None Recorded Concern Status LastModified by Organization Details LastModified Time None Recorded Advance Directives Directive None Recorded Payers Encounter Date Sequence Insurance Name Policy Number Policy Crawley Covered Member ID Crawley Member ID Guarantor Name 08/24/2022 1 [facility] - DUAL ELIGIBLE (MEDICARE REPLACEMENT/A DVANTAGE - HMO) [facility] Sangita Umana [id number] Sangita Umana 09/12/2022 1 [facility] - DUAL ELIGIBLE (MEDICARE REPLACEMENT/A DVANTAGE - HMO) [facility] Sangita Umana [id number] Sangita Umana Notes Date Note Type Note [...] outside pain group since moving here from [place]. She completed a set of 3 cervical epidurals as well as several lumbar epidurals with benefit. She states she does not believe she has had injections since the winter. 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 She was then transition to Percocet 5 mg and was taking it 3 times daily. She states they have had a change in their providers and she is looking for an outside pain group as they will no longer continue [place] [address] [place] [address], [address], [facility] 08/25/2022 11:39:12 09/12/2022 text/html Lumbar [...] [facility] since moving here from [place]. She completed a set of 3 cervical epidurals as well as several lumbar epidurals with benefit. 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
--- OUTSIDE RECORDS SUMMARY | 2024-09-02 14:18 | XMS_ITS | Data Portability ---
Author Organization [facility] Address [address] [place] [address] Care Team Providers Care Surgical Corsetier Name Role Phone MARIA GARCIA OTHER MARY BOLIVAR Primary Care Provider Assessment No assessment recorded. Plan of Treatment Reminders Order Date Submit Date Provider Last Modified By Organization Details Last Modified Time Details Appointments None recorded. Lab None recorded. Referral dermatologi st referral 2022 023 [email or web address] [facility], [address] [facility], [address], [place], [address], 3 15:06:17 cardiologis t referral 2021 022 [facility], [address] [facility], [address], [place], [address], 3 14:31:58 physical therapist referral 2021 022 [facility], [address], [address], [place], [address], 2 10:21:30 Procedures lexiscan cardiolite stress test (PROC) 2021 022 [email or web address] 1 Not available 14:14:52 Surgeries None recorded. Imaging None recorded. Medication Orders Kenalog 40 mg/mL suspension for injection 2022 023 [facility], [address], [place], [place], [id number], 3 16:17:39 methylpredn isolone 4 mg tablets in a dose pack [address] [facility] #36752, [address], [place], [place], [id number], 18:42:42 Lexiscan 0.4 mg/5 mL intravenous syringe 2021 [email or web address] 1 [facility] #89145, [address], [place], [place], [id number], 10:37:35 mupirocin 2 % topical ointment [address] [facility] #29958, [address], [place], [place], [id number], 13:03:36 montelukast 10 mg tablet [address] [facility] #84447, [address], [place], [place], [phone], 13:03:37 ProAir HFA 90 mcg/actuati on aerosol inhaler [address] [facility] #61986, [address], [place], [place], [id number], 2 13:03:37 duloxetine 60 mg capsule,del ayed release [address] [facility] #34023, [address], [place], [place], [id number], 2 13:03:38 metoprolol succinate ER 25 mg tablet,exte nded release 24 hr 2021 022 [facility]03314, [address] [facility], [place], [place], [id number], 13:03:37 Patient TargetsNo targets recorded. Patient Instructions Encounter Date Encounter Id Patient Instructions Last Modified By Organization Details Last Modified Time 03/06/2022 [id number] depression treatment: care instructions [email or web address] Not available 03/06/2022 21:24:17 05/11/2022 [id number] depression treatment: care instructions [email or web address] Not available 05/11/2022 20:01:49 coordination of care* - no car - needs assistance for transport for epidural injection - grocery assistance [email or web address] Not available 05/23/2022 18:16:41 Reason for Referral Physical Therapist Referral for Tendinitis of right shoulder Referring Physician: Mary Marshall [facility], Encounter Date: 12/15/2021 Enrobing Machine Operator Referral for Ac jaci non-ST segment elevation myocardial infarction Referring Physician: Mary Marshall [facility], Encounter Date: 12/15/2021 Director Biomedical Engineering Referral for B nehemiah cell carcinoma of skin Referring Physician: Mary Marshall [facility], Encounter Date: 05/11/2022 Results Created Date Observation Date Name Description Value Unit Range Abnormal Flag Note LastModifiedBy Organization Detail LastModifiedTime 12/16/1912/15/2021 COMPL ETE BLOOD COUNT WITH AUTO DIFF white blood cell 8.1 K/uL 4.4-10 .8 Not Available [facility] [place] [address] [place], [address], 12/15/2021 23:05:23 12/16/19 22 12/15/2021 COMPL ETE BLOOD COUNT WITH AUTO DIFF red blood cell 3.99 M/uL 4.02-5 .18 low Not Available [facility] [place] [address] [place], [address], 12/15/2021 23:05:23 12/16/19 22 12/15/2021 COMPL ETE BLOOD COUNT WITH AUTO DIFF hemoglobin 13.1 g/dL 11.5-1 5.5 Not Available [facility] [place] [address], [place], [address], 12/15/2021 23:05:23 12/16/19 22 12/15/2021 COMPL ETE BLOOD COUNT WITH AUTO DIFF hematocrit 39.5 % 36.0-4 8.0 Not Available [facility] [place] [address], [place], [address], 12/15/2021 23:05:23 12/16/19 22 12/15/2021 COMPL ETE BLOOD COUNT WITH AUTO DIFF mean corpuscular volume 99.0 fL 80.0-9 7.0 high Not Available [facility] [place] [address], [place], [address], 12/15/2021 23:05:23 12/16/19 22 12/15/2021 COMPL ETE BLOOD COUNT WITH AUTO DIFF mean corpuscular hemoglobin 32.8 pg 25.8-3 2.9 Not Available [facility] [place] [address], [place], [address], 12/15/2021 23:05:23 12/16/19 22 12/15/2021 COMPL ETE BLOOD COUNT WITH AUTO DIFF mean corpuscular hemoglobin concentratio n 33.2 g/dL 31.0-3 5.0 Not Available [facility] [place] [address], [place], [address], 12/15/2021 23:05:23 12/16/19 22 12/15/2021 COMPL ETE BLOOD COUNT WITH AUTO DIFF red cell distribution width 14.2 % 11.1-1 5.1 Not Available [facility] [place] [address], [place], [address], 12/15/2021 23:05:23 12/16/19 22 12/15/2021 COMPL ETE BLOOD COUNT WITH AUTO DIFF platelets 258 K/uL 140-40 0 Not Available [facility] [place] [address], [place], [address], 12/15/2021 23:05:23 12/16/19 22 12/15/2021 COMPL ETE BLOOD COUNT WITH AUTO DIFF mean platelet volume 10.3 fL 7.5-14 .0 Not Available [facility] [place] [address], [place], [address], 12/15/2021 23:05:23 12/16/19 22 12/15/2021 COMPL ETE BLOOD COUNT WITH AUTO DIFF neutrophil, percentage 67.8 % 38.8-7 6.4 Not Available [facility] [place] [address], [place], [address], 12/15/2021 23:05:23 12/16/19 22 12/15/2021 COMPL ETE BLOOD COUNT WITH AUTO DIFF lymphocyte, percentage 24.1 % 17.8-4 6.6 Not Available [facility] [place] [address], [place], [address], 12/15/2021 23:05:23 12/16/19 22 12/15/2021 COMPL ETE BLOOD COUNT WITH AUTO DIFF monocyte, percentage 4.8 % 3.0-11 .0 Not Available [facility] [place] [address], [place], [address], 12/15/2021 23:05:23 12/16/19 22 12/15/2021 COMPL ETE BLOOD COUNT WITH AUTO DIFF eosinophil, percentage 2.0 % 0.0-6. 0 Not Available [facility] [place] [address], [place], [address], 12/15/2021 23:05:23 12/16/19 22 12/15/2021 COMPL ETE BLOOD COUNT WITH AUTO DIFF basophil, percentage 0.9 % 0.0-2. 0 Not Available [facility] [place] [address] [facility], [place], [address], 12/15/2021 23:05:23 12/16/19 22 12/15/2021 COMPL ETE BLOOD COUNT WITH AUTO DIFF neutrophil, absolute 5.5 K/uL 1.9-7. 9 Not Available [facility] [place] [address] [facility], [place], [address], 12/15/2021 23:05:23 12/16/19 22 12/15/2021 COMPL ETE BLOOD COUNT WITH AUTO DIFF lymphocyte, absolute 2.0 K/uL 1.0-4. 9 Not Available [facility] [place] [address] [facility], [place], [address], 12/15/2021 23:05:23 12/16/19 22 12/15/2021 COMPL ETE BLOOD COUNT WITH AUTO DIFF monocyte, absolute 0.4 K/uL 0.1-1. 2 Not Available [facility] [place] [address] [place], [address], 12/15/2021 23:05:23 12/16/19 22 12/15/2021 COMPL ETE BLOOD COUNT WITH AUTO DIFF eosinophil, absolute 0.2 K/uL 0.0-0. 7 Not Available [facility] [place] [address] [place], [address], 12/15/2021 23:05:23 12/16/19 22 12/15/2021 COMPL ETE BLOOD COUNT WITH AUTO DIFF basophil, absolute 0.1 K/uL 0.0-0. 2 Not Available [facility] [place] [address] [place], [address], 12/15/2021 23:05:23 12/16/19 22 12/15/2021 COMPL ETE BLOOD COUNT WITH AUTO DIFF immature granulocytes % 0.4 % 0.0-3. 0 Not Available [facility] [place] [address] [place], [address], 12/15/2021 23:05:23 12/16/19 22 12/15/2021 COMPL ETE BLOOD COUNT WITH AUTO DIFF immature granulocytes # 0.0 K/uL 0.0-0. 3 Not Available [facility] [place] [address] [place], [address], 12/15/2021 23:05:23 12/16/19 22 12/15/2021 COMPL ETE BLOOD COUNT WITH AUTO DIFF nucleated red blood cell % 0.0 % 0.0-0. 0 Not Available [facility] [place] [address] [place], [address], 12/15/2021 23:05:23 12/16/19 22 12/15/2021 COMPL ETE BLOOD COUNT WITH AUTO DIFF nucleated red blood cell # 0.0 K/uL 0.0-0. 0 Not Available [facility] [place] [address] [place], [address], 12/15/2021 23:05:23 12/16/19 22 12/15/2021 CREAT INE KINAS E creatine kinase 78 U/L 25-160 Not Available [facility] [place] [address] [place], [address], 12/15/2021 23:05:24 12/16/19 22 12/15/2021 COMPR EHENS ANDRIY METAB OLIC PANEL W/EGF R (14) glucose, random 152 mg/dL 70-100 high Not Available [facility] [place] [address], [place], [address], 12/15/2021 23:05:24 12/16/19 22 12/15/2021 COMPR EHENS ANDRIY METAB OLIC PANEL W/EGF R (14) BUN 34 mg/dL 8-25 high Not Available [facility] [place] [address], [place], [address], 12/15/2021 23:05:24 12/16/19 22 12/15/2021 COMPR EHENS ANDRIY METAB OLIC PANEL W/EGF R (14) creatinine 1.1 mg/dL 0.6-1. 4 For patie nts >49 years of age, the refer ence limit for Creat inine is appro ximat tessa 13% highe r for peopl e ident ified as Afric an-Am lorraine n. Not Available [facility] [place] [address], [place], [address], 12/15/2021 23:05:24 12/16/19 22 12/15/2021 COMPR EHENS [...] on CKD. Not Available [facility] [place] [address], [place], [address], 12/15/2021 23:05:24 12/16/19 22 12/15/2021 COMPR EHENS [...] on CKD. Not Available [facility] [place] [address] [place], [address], 12/15/2021 23:05:24 12/16/19 22 12/15/2021 COMPR EHENS ANDRIY METAB OLIC PANEL W/EGF R (14) BUN/creat ratio 31 ratio 10-28 high Not Available [facility] [place] [address] [place], [address], 12/15/2021 23:05:24 12/16/19 22 12/15/2021 COMPR EHENS ANDRIY METAB OLIC PANEL W/EGF R (14) bilirubin, total 0.4 mg/dL 0.2-1. 3 Not Available [facility] [place] [address] [place], [address], 12/15/2021 23:05:24 12/16/19 22 12/15/2021 COMPR EHENS ANDRIY METAB OLIC PANEL W/EGF R (14) AST (SGOT) 53 U/L 14-36 high Not Available [facility] [place] [address] [place], [address], 12/15/2021 23:05:24 12/16/19 22 12/15/2021 COMPR EHENS ANDRIY METAB OLIC PANEL W/EGF R (14) ALT (SGPT) 83 U/L 7-41 high Not Available [facility] [place] [address] [place], [address], 12/15/2021 23:05:24 12/16/19 22 12/15/2021 COMPR EHENS ANDRIY METAB OLIC PANEL W/EGF R (14) alkaline phosphatase 66 U/L 40-135 Not Available [facility] [place] [address] [place], [address], 12/15/2021 23:05:24 12/16/19 22 12/15/2021 COMPR EHENS ANDRIY METAB OLIC PANEL W/EGF R (14) calcium 9.1 mg/dL 8.4-10 .2 Not Available [facility] [place] [address] [place], [address], 12/15/2021 23:05:24 12/16/19 22 12/15/2021 COMPR EHENS ANDRIY METAB OLIC PANEL W/EGF R (14) sodium 137 mmol/ L 134-14 4 Not Available [facility] [place] [address] [place], [address], 12/15/2021 23:05:24 12/16/19 22 12/15/2021 COMPR EHENS ANDRIY METAB OLIC PANEL W/EGF R (14) potassium 4.2 mmol/ L 3.5-5. 2 Not Available [facility] [place] [address] [place], [address], 12/15/2021 23:05:24 12/16/19 22 12/15/2021 COMPR EHENS ANDRIY METAB OLIC PANEL W/EGF R (14) chloride 105 mmol/ L 96-110 Not Available [facility] [place] [address] [place], [address], 12/15/2021 23:05:24 12/16/19 22 12/15/2021 COMPR EHENS ANDRIY METAB OLIC PANEL W/EGF R (14) CO2 23 mmol/ L 22-30 Not Available [facility] [place] [address] [place], [address], 12/15/2021 23:05:24 12/16/19 22 12/15/2021 COMPR EHENS ANDRIY METAB OLIC PANEL W/EGF R (14) total protein 6.9 g/dL 6.3-8. 2 Not Available [facility] [place] [address] [place], [address], 12/15/2021 23:05:24 12/16/19 22 12/15/2021 COMPR EHENS ANDRIY METAB OLIC PANEL W/EGF R (14) albumin 4.4 g/dL 3.5-5. 0 Not Available [facility] [place] [address] [place], [address], 12/15/2021 23:05:24 12/16/19 22 12/15/2021 COMPR EHENS ANDRIY METAB OLIC PANEL W/EGF R (14) globulin 2.5 g/dL 2.0-3. 7 Not Available [facility] [place] [address] [place], [address], 12/15/2021 23:05:24 12/16/19 22 12/15/2021 COMPR EHENS ANDRIY METAB OLIC PANEL W/EGF R (14) albumin/glob ulin 1.8 ratio 1.0-2. 4 Not Available [facility] [place] [address] [place], [address], 12/15/2021 23:05:24 12/16/19 22 12/15/2021 COMPR EHENS ANDRIY METAB OLIC PANEL W/EGF R (14) anion gap 8 ratio 4-18 Not Available [facility] [place] [address] [place], [address], 12/15/2021 23:05:24 12/16/19 22 12/15/2021 TSH RFLX TO FREE T4 TSH 1.08 mIU/L 0.45-4 .50 Not Available [facility] [place] [address], [place], [address], 12/15/2021 23:05:25 12/16/19 22 12/15/2021 URINA LYSIS WITH MICRO SCOPI C REFLX CULTU RE urine color LIGHT- YELLOW yellow abnormal Not Available [facility] [place] [address], [place], [address], 12/15/2021 23:05:26 12/16/19 22 12/15/2021 URINA LYSIS WITH MICRO SCOPI C REFLX CULTU RE urine clarity CLEAR clear Not Available [facility] [place] [address], [place], [address], 12/15/2021 23:05:26 12/16/19 22 12/15/2021 URINA LYSIS WITH MICRO SCOPI C REFLX CULTU RE urine glucose NEGATI VE negati ve Not Available [facility] [place] [address], [place], [address], 12/15/2021 23:05:26 12/16/19 22 12/15/2021 URINA LYSIS WITH MICRO SCOPI C REFLX CULTU RE urine ketones NEGATI VE negati ve Not Available [facility] [place] [address], [place], [address], 12/15/2021 23:05:26 12/16/19 22 12/15/2021 URINA LYSIS WITH MICRO SCOPI C REFLX CULTU RE urine bilirubin NEGATI VE negati ve Not Available [facility] [place] [address], [place], [address], 12/15/2021 23:05:26 12/16/19 22 12/15/2021 URINA LYSIS WITH MICRO SCOPI C REFLX CULTU RE urine specific gravity 1.011 1.005- 1.030 Not Available [facility] [place] [address], [place], [address], 12/15/2021 23:05:26 12/16/19 22 12/15/2021 URINA LYSIS WITH MICRO SCOPI C REFLX CULTU RE urine pH 5.5 5.0-7. 0 Not Available [facility] [place] [address], [place], [address], 12/15/2021 23:05:26 12/16/19 22 12/15/2021 URINA LYSIS WITH MICRO SCOPI C REFLX CULTU RE urine hemoglobin TRACE negati ve abnormal Not Available [facility] [place] [address], [place], [address], 12/15/2021 23:05:26 12/16/19 22 12/15/2021 URINA LYSIS WITH MICRO SCOPI C REFLX CULTU RE urine protein NEGATI VE negati ve Not Available [facility] [place] [address], [place], [address], 12/15/2021 23:05:26 12/16/19 22 12/15/2021 URINA LYSIS WITH MICRO SCOPI C REFLX CULTU RE urine urobilinogen NORMAL mg/dL normal Not Available [facility] [place] [address], [place], [address], 12/15/2021 23:05:26 12/16/19 22 12/15/2021 URINA LYSIS WITH MICRO SCOPI C REFLX CULTU RE urine nitrate NEGATI VE negati ve Not Available [facility] [place] [address], [place], [address], 12/15/2021 23:05:26 12/16/19 22 12/15/2021 URINA LYSIS WITH MICRO SCOPI C REFLX CULTU RE urine leukocyte esterase NEGATI VE chris/u L negati ve Not Available [facility] [place] [address] [facility], [place], [address], 12/15/2021 23:05:26 12/16/19 22 12/15/2021 URINA LYSIS WITH MICRO SCOPI C REFLX CULTU RE urine white blood cells <6 /hpf <6 Not Available [facility] [place] [address] [facility], [place], [address], 12/15/2021 23:05:26 12/16/19 22 12/15/2021 URINA LYSIS WITH MICRO SCOPI C REFLX CULTU RE urine red blood cells <5 /hpf <5 Not Available [facility] [place] [address] [facility], [place], [address], 12/15/2021 23:05:26 12/16/19 22 12/15/2021 URINA LYSIS WITH MICRO SCOPI C REFLX CULTU RE urine bacteria NEGATI VE /hpf negati ve Not Available [facility] [place] [address] [facility], [place], [address], 12/15/2021 23:05:26 12/16/19 22 12/15/2021 URINA LYSIS WITH MICRO SCOPI C REFLX CULTU RE urine squamous epithelial cells FEW /hpf few Not Available [facility] [place] [address] [facility], [place], [address], 12/15/2021 23:05:26 12/16/19 22 12/15/2021 MICRO ALBUM IN/CR EATIN INE RATIO , RANDO M albumin, urine <3.0 Noah ified by qasim black sheila sis Not Available [address], [address], 12/16/2021 16:11:33 12/16/19 22 12/15/2021 MICRO ALBUM IN/CR EATIN INE RATIO , RANDO M alb/creat ratio <7 Tena l: 0 - 29 Moder ately incre ased: 30 - 300 Sever tessa incre ased: >300 Not Available [facility] [address] [place], [address], 12/16/2021 16:11:33 12/16/19 22 12/16/2021 MICRO ALBUM IN/CR EATIN INE RATIO , RANDO M creatinine, urine 43.7 mg/dL not estab. normal Not Available [facility] [address] [place], [address], 12/16/2021 16:11:33 01/10/20 22 11/08/2021 US, echoc ardio gram, trans thora cic, compl ete, w/ color flow No observ ation record ed. [email or web address] Not Available 01/09 12:25:18 01/10/20 22 11/07/2021 CT, chest , w/ contr ast No observ ation record ed. [email or web address] Not Available 01/09 12:26:35 01/10/20 22 11/08/2021 elect rocar diogr am No observ ation record ed. [email or web address] Not Available 01/09 13:04:25 02/28/20 22 02/21/2022 [...] Time Mixed anxiety and depressiv e disorder 825295602 Active APRIL [facility] [address], [place], [address] , [facility] 6 23:05:09 Degenerat ion of lumbar intervert ebral disc 20051742 Active Mary Bolivar [facility] [address], [place], [address] , [facility] 6 23:05:09 Cigarette smoker 11320201 Active APRIL DyerP [address], [place], [address] , [facility] 6 23:05:09 Degenerat ion of lumbosacr al intervert ebral disc 54499975 Active Mary Bolivar [facility] [address], [place], [address] , [facility] 6 23:05:09 Increased frequency of urination 926266646 Active 2017 Mary Bolivar [facility] [address], [place], [address] , [facility] 8 17:30:33 Visual disturban ce 07003877 Active 2017 Mary Bolivar [facility] [address], [place], [address] , [facility] 8 17:35:59 Mild memory disturban ce 021132420 Active 2017 Mary Bolivar [facility] [address], [place], [address] , [facility] 8 20:54:57 Long-term current use of opiate analgesic drug 28712699863 4108 Active 2017 Mary Bolivar [facility] [address], [place], [address] , [facility] 8 21:00:28 Overweigh t 888354080 Active 2017 Mary Bolivar, [employer] [address], [place], [address] , [place] [facility] 8 17:16:33 History of hepatitis C 07750408754 101 Active 2017 APRIL DyerP [address], [place], [address] , [facility] 8 17:18:05 Malaise and fatigue 131640499 Active 2017 APRIL DyerP [address], [place], [address] , [facility] 8 17:19:09 Intermitt ent palpitati ons 765615340 Active 2017 APRIL DyerP [address], [place], [address] , [facility] 8 17:39:53 Blood glucose outside reference range 821234560 Active 2018 APRIL DyerP [address], [place], [address] , [facility] 9 18:44:22 Spinal stenosis in cervical region 34812517 Active 2018 Mary Bolivar [employer] [address], [place], [address] , [facility] 9 15:58:06 Lumbar post-lami nectomy syndrome 411347659 Active 2018 Mary Bolivar [employer] [address], [place], [address] , [facility] 9 16:04:11 Palpitati ons 99826430 Active 2017 Not Available [facility] 0 10:47:05 Acute injury of kidney 99460535895 152771 Active 2021 APRIL DyerP [address], [place], [address] , [facility] 2 17:55:57 Rhabdomyo lysis 465733648 Active 2021 [facility], [employer] [address], [place], [address] , [facility] 2 17:56:19 Acute non-ST segment elevation myocardia l infarctio n 299188169 Active 2021 Mary Marshall, [employer] [address], [place], [address] , [facility] 2 18:04:07 Body mass index 20-24 - normal 540130749 Active 2021 Mary Bolivar, [employer] [address], [place], [address] , [facility] 2 22:02:51 Tendiniti s of right shoulder 50565455451 16828 Active 2021 Mary Marshall, [employer] [address], [place], [address] , [facility] 2 12:45:33 Superfici al injury of foot without infection 50234604 Active 2021 [facility], [employer] [address], [place], [address] , [facility] 2 12:51:42 Infection of skin 612159513 Active 2021 Mary Marshall, [employer] [address], [place], [address] , [facility] 2 12:56:57 Liver enzymes level above reference range 607294014 Active 2021 [facility], [employer] [address], [place], [address] , [facility] 2 16:01:49 Celluliti s of foot 402865689 Active 2021 [facility], [employer] [address], [place], [address] , [facility] 2 22:38:23 Headache 23926468 Active 2021 Mary Bolivar, [employer] [address], [place], [address] , [facility] 2 23:51:23 Liver function tests outside reference range [id number] Active 2021 Mary Bolivar [employer] [address], [place], [address] , [facility] 2 18:25:35 Lumbar radiculop athy 643349989 Active 2021 Mary Bolivar [employer] [address], [place], [address] , [facility] 2 15:21:10 Basal cell carcinoma of skin 879222250 Active 2022 APRIL DyerP [address], [place], [address] , [facility] 3 15:35:25 Lumbago with sciatica 041774494 Active 2022 Mary Bolivar, [employer] [address], [place], [address] , [facility] 3 15:47:59 Finding of hand region [id number] Completed 05/10/2015 Mary Bolivar [employer] [address], [place], [address] , [facility] 6 23:05:09 Gastroeso phageal reflux disease 315453251 Active Mary Bolivar [employer] [address], [place], [address] , [facility] 6 23:05:09 Chronic pain syndrome 253158736 Active Mary Bolivar [employer] [address], [place], [address] , [facility] 6 23:05:09 Cough 99870689 Completed 08/06/2017 Mary Bolivar, HARDWARE INST[employer]ER [address], [place], [address] , [place] [facility] 8 17:19:04 Menopausa l symptom 19929533 Active Mary Marshall, HARDWARE INSTALLER [address], [place], [address] , [place] [facility] 6 23:05:09 Benign essential hypertens ion 3226702 Active [facility], HARDWARE INST[employer]ER [address], [place], [address] , [place] [facility] 6 23:05:09 Benign essential hypertens ion 7261229 Completed 05/10/2010 Mary Marshall, HARDWARE INSTALLER [address], [place], [address] , [place] - [facility] 6 23:05:09 Acute hepatitis C 925485313 Completed 02/11/2018 [facility], HARDWARE IN[employer]ER [address], [place], [address] , [facility] - [facility] 8 17:17:48 Feeling nervous [id number] [facility], HARDWARE INST[employer]ER [address], [place], [address] , [facility] - [facility] 6 23:05:09 Generaliz ed osteoarth ritis 337851679 [facility] HARDWARE INST[employer]ER [address], [place], [address] , [facility] - [facility] 6 23:05:09 Depressiv e disorder 58393624 [facility], [employer] IN[employer]ER [address], [place], [address] , [place] [facility] 6 23:05:09 Closed fracture of phalanx of foot 09615327 [facility] H[employer] IN[employer] [address], [place], [address] , [place] [facility] 6 23:05:09 Tobacco dependenc e syndrome 24032984 Completed 08/06/2017 Mary Bolivar, HARDWARE INST[employer]ER [address], [place], [address] , [facility] 8 17:22:06 Shoulder joint pain 479162047 Active Mary Bolivar, HARDWARE INST[employer]ER [address], [place], [address] , [facility] 6 23:05:09 Carpal tunnel syndrome 97521847 Active Mary Marshall, HARDWARE INSTALLER [address], [place], [address] , [facility] 6 23:05:09 Obesity 617033680 Active Mary Marshall, HARDWARE INST[employer]ER [address], [place], [address] , [facility] 6 23:05:09 Osteopeni a 190149749 Active Mary Marshall HARDWARE INST[employer]ER [address], [place], [address] , [facility] 6 23:05:09 Low back pain 404197957 Completed 08/06/2017 Mary Marshall HARDWARE INST[employer]ER [address], [place], [address] , [facility] 8 20:57:40 Asthma 412934044 Active Mary Marshall, HARDWARE INSTALLER [address], [place], [address] , [facility] 6 23:05:09 Problem Notes None recorded. Procedures Surgical History Date Name Laterality Status Provider Name and Address Organization Details Recorded Time 02/22/20 22 Stress MPI INITIAL - Lexiscan (IAC) completed Rebecca Matthew [facility] 02/21/2022 14:09:56 02/22/20 22 Stress MPI RESULT - Normal (IAC) [place] [address], [place], [address], [facility] 02/27/2022 10:37:33 12/30/19 21 Knee Replacement completed Mary Bolivar, HARDWARE INSTALLER [address], [place], [address], [facility] 11/29/2021 17:59:04 08/07/19 18 PCM Nicotine SMOKING completed Pascaledaniel Chu [facility] 08/06/2017 16:48:59 08/19/19 17 PCMH Nicotine SMOKING completed SUNG Marsh [facility] 08/18/2016 19:24:27 05/15/19 17 PCM Nicotine SMOKING completed Rakan Chase [facility] 05/15/2016 18:20:54 05/15/19 17 [facility] Depression Screening PHQ9 completed Rakan Chase [facility] 05/15/2016 18:20:44 04/30/19 10 Other (Please specify) completed Not Available [facility] 03/23/2011 02:44:30 04/30/19 09 Hip Surgery completed Not Available [facility] 03/23/2011 02:44:30 04/30/19 00 Tubal Ligation completed Not Available [facility] 03/23/2011 02:44:30 04/30/18 99 Cholecystectomy completed Not Available [facility] 03/23/2011 02:44:30 Gallbladder Surgery completed Alla Mccabe [facility] 01/11/2022 16:28:45 Back Surgery completed Alla Mccabe [facility] 01/11/2022 16:28:45 Joint Replacement completed Chula Mccabe [facility] 01/11/2022 16:28:45 Spine Surgery (Cervical, Thoracic, Lumbar) completed Alla Mccabe [facility] 01/11/2022 16:28:45 Section completed Mary Bolivar, HARDWARE INSTALLER [address], [place], [address], [facility] 03/06/2022 18:43:29 Breast Surgery (Lumpectomy, Biopsy, Implants) completed Mary Bolivar, HARDWARE INSTALLER [address], [place], [address], [facility] 03/06/2022 18:43:29 Carpal tunnel surgery completed Mary Bolivar, HARDWARE INSTALLER [address], [place], [address], [place] [facility] 06/12/2017 11:13:47 Imaging Results Imaging Date Name Status LastModified by Organization Details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
[2024-09-02 14:54] LABS: Anion Gap 11 (12-20); Blood Urea Nitrogen 29 mg/dL (9-16); Calcium 9.5 mg/dL (8.4-10.2); Carbon Dioxide 31 mmol/L (22-29); Chloride 103 mmol/L (96-108); Estimated Glomerular Filt Rate 35; Glucose Random 103 mg/dL (60-115); Potassium 4.6 mmol/L (3.3-5.1); Sodium 140 mmol/L (135-145)
== END 2024-09-02 13:03 | disposition home or self-care (01) ==
LOC: HO.LAB 13:02
PROVIDERS: PCP Student in an Organized Health Care Education/Training Program; Visit Provider Internal Medicine Hypertension Specialist
DX: M81.0 Age-related osteoporosis without current pathological fracture (principal); N18.32 Chronic kidney disease, stage 3b
CPT/HCPCS: 36415; 80048; 85025; 96372; J3111

== ENCOUNTER 2024-09-02 13:59 | Outpatient (AMB) | payer OTHER, SELFPAY ==
--- NOTE | 2024-09-02 14:55 | AM.OFFVISNUR ---
Intake Visit Reasons: Evenity #1 Allergies NSAIDS (Non-Steroidal Anti-Inflamma Adverse Reaction (Mild, Verified 08/22/24 13:43) contraindicated w/ CKD Office Meds romosozumab-aqqg 210 mg/2.34 mL(105 mg/1.17 mL x2)subcutaneous syringe Performing Provider: Nick Nolasco MD Performing Location: [facility] Administered by: Anna Phillips RN on 09/02/24 14:55 Dose Route Admin Location Dispensed Lot Number Expiration Date NDC High Density Finishing Operator 210 mg subcut bilateral upper arms 2.34 mL [id number] 08/27/26 32753-631-15 [facility] Comments: Consent form signed by patient. Pt advised to continue taking calcium and Vit D supplementation throughout evenity injections. Pt informed that pt will receive injections every 4 weeks for 1 year. Patient advised to alert her dentist she is on this medication. Patient aware to watch for site reactions at injection site such as redness, warmth or swelling. Pt aware to call the office if any of these were to occur or other side effects such as headache or joint pain. All questions answered at this time. Pt tolerated injection well and pt was observed for 15 minutes following injection without any adverse reactions. Assessment & Plan Assessment & Plan Orders: Orders AMB Romosozumab Injection Patient Supplied Today M81.0 - Age-related osteoporosis without current pathological fracture Medications: New romosozumab-aqqg 210 mg (2.34 mL) subcut ONCE 2.34 mL 0RF M81.0 - Age-related osteoporosis without current pathological fracture Coding
--- OUTSIDE RECORDS SUMMARY | 2024-09-02 15:20 | XMS_ITS | Clinical Summary ---
Author Organization [facility] Address [address] [place] [address] Care Team Providers Care Churn Operator Margarine Name Role Phone Zainab Kaiser Primary Care Provider [phone] Source Comments PLEASE NOTE, if this patient [...] Primary hypertension 11/09/2023 Chronic obstructive pulmonary disease ([facility]) 11/09/2023 Chronic bilateral back pain 11/09/2023 Major depressive disorder 11/09/2023 Stage 3 chronic kidney disease ([facility]) 024 ISSAC (generalized anxiety disorder) 11/09/2023 Osteoarthritis of hip 11/09/2023 DDD (degenerative disc disease), cervical 2023 Cervical stenosis of spine 11/09/2023 Encounters Date Type Department Care Team Description 06/09/2024 3:40 PM EST Office Visit [address] [address] Zainab Kaiser PA Pain management [...] Description 09/18/2024 1:40 PM EDT Office Visit [facility] [address] [place] [address] Zainab Kaiser PA [address] [place] [address] Health Maintenance Due Date Last Done Comments Hepatitis C Screening 1957 Lipid Screening 1957 Tobacco Cessation Counseling (#1) 1957 Medicare Annual Wellness Visit 1975 Breast Cancer Screening (Mammogram) 1997 CT Colonography 2002 Colonoscopy 2002 Colorectal Cancer Screening 2002 FIT/gFOBT 2002 Fecal DNA 2002 Flexible Sigmoidoscopy 2002 Imm-Zoster, Recombinant (1 o f 2) 2007 Bone Density Screening 2022 [id number] (2 - season) 2023 01/17/2021 Imm-Influenza (#1) [...] unspecified whether stage 3a or 3b CKD ([facility]) from Last 3 Months or Most Recently Relevant to Health Maintenance Results * REFERRAL TO ORTHOPEDICS (06/11/2024 3:00 AM EST) 06/11/2024 3:00 AM EST us Zainab JAMES REFERRAL Final Result * (ABNORMAL) COMPREHENSIVE METABOLIC PANEL (11/22/2023 4:09 PM EDT) GLUCOSE 82 65 - 99 mg/dL [facility] Comment: ?Fasting reference interval UREA NITROGEN (BUN) 27(H) 7 - 25 mg/dL [facility] CREATININE (blood) 1.57(H) 0.50 - 1.05 mg/dL [facility] EGFR 36(L) > OR = 60 mL/min/1. 73m2 [facility] BUN/CREATININE RATIO 17 6 - 22 (calc) [facility] SODIUM 138 135 - 146 mmol/L [facility] POTASSIUM 4.2 3.5 - 5.3 mmol/L [facility] CHLORIDE 102 98 - 110 mmol/L [facility] CARBON DIOXIDE 28 20 - 32 mmol/L [facility] CALCIUM 10.1 8.6 - 10.4 mg/dL [facility] PROTEIN, TOTAL 7.4 6.1 - 8.1 g/dL [facility] ALBUMIN 4.9 3.6 - 5.1 g/dL [facility] GLOBULIN 2.5 1.9 - 3.7 g/dL (calc) [facility] ALBUMIN/GLOBULI N RATIO 2.0 1.0 - 2.5 (calc) [facility] BILIRUBIN, TOTAL 0.7 0.2 - 1.2 mg/dL [facility] ALKALINE PHOSPHATASE 57 37 - 153 U/L [facility] AST 23 10 - 35 U/L [facility] ALT 18 6 - 29 U/L [facility] Blood Blood / Unknown 11/22/2023 4 :09 PM EDT 11/22/2023 4:09 PM EDT Narrative [facility] - 11/23/2023 10:52 AM EDT SPLIT 11/22/2023 FROM [id number] us Zainab J[facility] - BLOOD DRAW Final Result [facility] [address] [address], [facility] [address] [address] from Last 3 Months or Most Recently Relevant to Health Maintenance Insurance [facility] MEDICARE COMPLETE [place] MEDICAID Care Teams Churn Operator Margarine Relationship Specialty Start Date End Date Zainab Kaiser PA [address] [place] [address] PCP - General Primary Care 09/14/23
--- OUTSIDE RECORDS SUMMARY | 2024-09-02 15:20 | XMS_ITS | Continuity of Care Document ---
Author Organization [facility] ter Address [address] [place] [address] Phone Care Team Providers Care Sound Engineering Technician Name Role Phone Zainab Guzman MD Unavailable Unavailable Procedures Procedure Date Cancel Fee 1st Occurrence Advance Directives Directive Yes / No Effective Date File Name No Information Encounters Encounter Description Practice Location Reason(s) For Visit Diagnoses Date Provider Providers Copied on Encounter [facility] [place], [address] [place], [id number], [place] tel:[phone] [address] [place] [address] No Information 3 Thomas Lamb. [facility] [place], [place], [id number] , [place]. tel:[phone] Referring Provider: Zainab Guzman, [facility] [place], [address] . tel:[phone] Family History Family Member Type Diagnosis Age [...]
== END 2024-09-02 15:40 | disposition home or self-care (01) ==
LOC: HO.ENCR 14:00
PROVIDERS: PCP Student in an Organized Health Care Education/Training Program; Visit Provider Internal Medicine Endocrinology, Diabetes & Metabolism
DX: M81.0 Age-related osteoporosis without current pathological fracture (principal)

== ENCOUNTER 2024-09-08 14:03 | Outpatient (AMB) | payer OTHER, SELFPAY ==
--- NOTE | 2024-09-08 13:59 | HO.NEPHOV_ITS ---
Intake Visit Reasons: CKD/ Conf Photographic Specialist Required: No Accompanied by: Self / Same As Patient Allergies NSAIDS (Non-Steroidal Anti-Inflamma Adverse Reaction (Mild, Verified 09/08/24 14:00) contraindicated w/ CKD Medication List - Last Reconciled 09/08/24 by Wilder Chaney MD acetaminophen ER (Tylenol Arthritis Pain) 650 mg PO Q12H albuterol sulfate 90 mcg/actuation 2 puffs inhalation Q4H PRN amlodipine 5 mg PO DAILY budesonide-formoterol 160-4.5 mcg/actuation (Symbicort) 2 inhalations inhalation BID diclofenac sodium 1% 2 grams topical QID PRN duloxetine 60 mg PO DAILY gabapentin 100 mg PO TID ipratropium-albuterol 0.5 mg-3 mg(2.5 mg base)/3 mL 3 mL inhalation Q6H PRN loperamide (Imodium A-D) 2 mg PO QID metoprolol succinate ER 25 mg PO DAILY montelukast 10 mg PO DAILY romosozumab-aqqg (Evenity) 210 mg (2.34 mL) subcut .qmo tizanidine 2 mg PO Q8H PRN HPI Comments Details: Sangita is a pleasant 68-year-old woman referred for evaluation of CKD. Serum creatinine was 1.56. She has recently moved from [place]. In 2020 she had an MRI which showed hydronephrosis on the right side. Apparently this has not been addressed and she has not aware of this finding. MRI showed advanced multilevel lumbar spondylosis. She is significant pain and he has been taking NSAIDs on and off. Prior to this she was on narcotics which she has not taking currently. She has a history of hypertension. She has been on lisinopril 10 mg a day. She is history of smoking, currently smokes less than 10 a day. 10/09/23 Still on Naprosyn 500 BID 02/21/24 Now on gabapentin Gained 10 lbs 09/08/2024. THIS IS A TELE VISIT. [facility] Medical History Encounter for general adult medical examination without abnormal findings Liver disease Polyarthralgia Lumbar degenerative disc disease ISSAC (generalized anxiety disorder) HTN (hypertension) Chronic back pain Renal stones Surgical History History of left knee replacement History of left hip replacement Hx of section S/P cholecystectomy H/O laminectomy Family History Mother Colitis Maternal Uncle Cancer Family/Other Cancer Social History Household Members: Other Household Members Other:: Roommate x1 Housing: Other Housing Other:: Roommate 75 years or older and lives alone: No Alcohol intake: former 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 Patient Tobacco Use Status: Current everyday Tobacco user Tobacco use type: Cigarette Cigarettes Per Day: 6 Years Smoked: 40 e-Cigarette/Vaping Use: Currently Using Substance Use Type: Marijuana service: No Current occupational status: disabled Current occupational exposures/hazards: No Sexual orientation: Straight/Heterosexual Gender identity: Female Cognitive needs: No Hearing needs: No Vision needs: Yes Telehealth Telehealth Telehealth Platform: Telephone Location of provider rendering services: practice address Location of patient: address on file Patient Identification confirmed using: Name, : Yes Telehealth method: voice only Patient verbally consented to treatment: Yes Patient verbally consented to billing insurance company: Yes Patient informed of any privacy concerns related to visit: Yes Minutes spent on Phone/Video with Pt.: 12 Results Reviewed Nephrology Results: Hgb 13.4 g/dl (12.0-16.0) 09/02/24 WBC 8.3 X10*3/uL (4.8-10.8) 09/02/24 Plt Count 257 X10*3/uL (160-400) 09/02/24 Sodium 140 mmol/L (135-145) 09/02/24 Potassium 4.6 mmol/L (3.3-5.1) 09/02/24 Chloride 103 mmol/L (96-108) 09/02/24 Carbon Dioxide 31 mmol/L (22-29) H 09/02/24 BUN 29 mg/dL (9-16) H 09/02/24 Creatinine 1.48 mg/dL (0.5-1.4) H 09/02/24 Calcium 9.5 mg/dL (8.4-10.2) 09/02/24 Assessment & Plan Assessment & Plan (1) CKD (chronic kidney disease) stage 3, GFR 30-59 ml/min: Code(s): N18.30 - Chronic kidney disease, stage 3 unspecified Category: Medical Qualifiers: Chronic kidney disease stage 3 subtype: stage 3b (GFR 30-44) Qualified Code(s): N18.32 - Chronic kidney disease, stage 3b Plan 68-year-old woman with chronic kidney disease. Three years ago she had right-sided hydronephrosis. No further imaging has been obtain since. Obstructive uropathy ruled out- Repeat sono appears normal with out hydro Other possibilities include hypertensive nephrosclerosis and NSAID nephropathy. Glomerulonephritis or interstitial disease seem unlikely. No significant proteinuria Creatinine is unchanged Atrophic RIGHT kidney measuring 7.1 cm PLAN STOP NAPROSYN Changed LISINOPRIL to Amlodipine Optimize blood pressure. BP has been controlled AMLODIPINE 5 mg DAILY Continue to avoid nephrotoxic agents including NSAIDs. Orders: Orders 2 Basic Metabolic Panel 6 Months N18.32 - Chronic kidney disease, stage 3b Coding Level of Care Code Tele Est Pt Level 3 (92256) Diagnoses Stage 3b chronic kidney disease N18.32 Chronic kidney disease stage 3 subtype: stage 3b (GFR 30-44)
--- OUTSIDE RECORDS SUMMARY | 2024-09-08 14:20 | XMS_ITS | Data Portability ---
Author Organization [place] - [facility], autoContract - [facility] Address [address] [place] [address] Care Team Providers Care Internet Merchant Name Role Phone REBECCA ESCALONA OTHER [phone] MARIA GARCIA OTHER Assessment No assessment recorded. [...] By Organization Details Last Modified Time 06/06/2018 [id number] deciding about using medicines to quit smoking [...] telem etry No observ ation record ed. [employer] [address], [place], [address], 06/28/2018 17:37:34 06/24/19 19 [place], echoc ardio gram No observ ation record ed. BARCODE Not Available 2018 18:52:06 Result Notes None recorded. Problems Name Problem SNOMED Code Status Onset Date Resolution Date Notes Provider Name and Address Organization Details Recorded Time Palpitati ons 96275577 Active 2017 Sena Kurt, RMA null, [facility] 8 12:57:03 Obesity 819259153 Active Sena Kurt, RMA null, [facility] 8 12:57:03 Degenerat ion of lumbar intervert ebral disc 16864528 Completed 03/14/2018 Sean Kurt, RMA null, [facility] 8 12:58:14 Visual disturban ce 13863502 Completed 201703/14/2018 Sena Kurt, RMA null, [facility] 8 12:57:44 Generaliz ed osteoarth ritis 823193424 Completed 03/14/2018 Sena Kurt, RMA null, [facility] 8 12:58:34 Intermitt ent palpitati ons 253166812 Active 2017 Sena Kurt, RMA null, [facility] 8 12:57:03 Depressiv e disorder 70023779 Active Sena Kurt, RMA null, [facility] 8 12:57:03 Chronic pain syndrome 339369265 Completed 03/14/2018 Sena Kurt, RMA null, [facility] 8 12:58:43 Mild memory disturban ce 277277408 Completed 201703/14/2018 Sena Kurt, RMA null, [facility] 8 12:58:23 Increased frequency of urination 707869003 Completed 201703/14/2018 Sena Kurt RMA null, [facility] 8 12:58:27 Carpal tunnel syndrome 17355656 Active Sena Kurt RMA null, [facility] 8 12:57:03 Long-term current use of opiate analgesic drug 677103839667 108 Active 2017 Sena Kurt, RMA null, [facility] 8 12:57:03 Asthma 567457129 Completed 03/14/2018 Sena Kurt, RMA null, [facility] 8 12:58:31 Mixed anxiety and depressiv e disorder 727495373 Completed 03/14/2018 Sena Kurt, RMA null, [facility] 8 12:58:37 Benign essential hypertens ion 7023974 Active Sena Kurt, RMA null, [facility] 8 12:57:03 Shoulder joint pain 479314832 Completed 03/14/2018 Sena Kurt, RMA null, [facility] 8 12:58:47 Cigarette smoker 26879509 Active Sena Kurt, RMA null, [facility] 8 12:57:03 Closed fracture of phalanx of foot 40052644 Completed 03/14/2018 Sena Kurt, RMA null, [facility] 8 12:57:39 Feeling nervous 393121801 Completed 03/14/2018 Sena Kurt, RMA null, [facility] 8 12:57:57 Osteopeni a 987257009 Completed 03/14/2018 Sena Kurt, RMA null, [facility] 8 12:58:01 Overweigh t 923228632 Completed 201703/14/2018 Sena Kurt, RMA null, [facility] 8 12:58:11 Degenerat ion of lumbosacr al intervert ebral disc 59294994 Completed 03/14/2018 Sena Hicks RMA null, [facility] 8 12:57:48 Gastroeso phageal reflux disease 502960980 Active Sena Hicks RMA null, [facility] 8 12:57:03 Menopausa l symptom 52113938 Completed 03/14/2018 Sena Hicks RMA null, [facility] 8 12:58:18 History of hepatitis C 257045467996 01 Completed 201703/14/2018 Sena Kurt RMA null, [facility] 8 12:57:36 Malaise and fatigue 514455305 Completed 201703/14/2018 Sena Kurt RMA null, [facility] 8 12:58:05 Problem Notes None recorded. Procedures Surgical History Date Name Laterality Status Provider Name and Address Organization Details Recorded Time 06/19/19 19 Echocardiogram completed Nida Reyes [facility] 06/24/2018 17:47:42 Other completed Sena Hicks, ARVINDA [facility] 02/18/2018 10:05:38 Other completed Sena Kurt, ARVINDA [facility] 02/18/2018 10:05:58 Other completed Sena Hicks, ARVINDA [facility] 02/18/2018 10:06:10 Cholecystectomy w/cholang completed Sena Hicks, ARVINDA [facility] 02/18/2018 10:06:30 Tubal Ligation completed ARVIND TapiaA [facility] 02/18/2018 14:35:35 Imaging Results Imaging Date Name Status LastModified by Organization Details LastModified Time 06/06/2018 electrocardiogram completed Informa tion not available 06/06/2018 18:44:44 06/19/2018 US, echocardiogram completed [facility] Inform ation not available 06/19/2018 10:19:56 06/19/2018 cardiac telemetry completed [employer] [address], [place], [address], 06/28/2018 17:37:34 06/24/2018 US, echocardiogram completed BARCODE [...] Updated DateTime 9 152.4 cm 27.7 kg/m2 53779.1 2 g 70 /min 98 % 98 % 122 mm[Hg] 80 mm[Hg] Yohana Song [facility] 9 17:16:31 Social History Question Answer Notes LastModified by [employer] Details LastModified Time Tobacco Smoking Status Current Every Day Smoker Sena Hicks, SUNG null, [facility] 02/18/2018 10:04:50 Do You Have An Advance Directive? No Information not available 06/06/2018 What Is Your Level Of Caffeine Consumption? [...] Functional Status Question Answer Note LastModified by [employer] Details LastModified Time What is your level of alcohol consumption? None Information not available 02/18/2018 What is your exercise level? Occasional Information [...] SNOMED-CT Code Diagnosis ICD10 Code Diagnosis Note [id number] Ashtyn Bolivar, COTTON HEADER [facility] [address] [place] [address] 05/05/2010 18:12:34 05/05/2010 19:18:30 [id number] Zena Ramirez MD [facility] [address] [place] [address] 05/10/2010 17:06:55 05/10/2010 18:50:11 [id number] Essence Knowles, DO [facility] [address] [facility] 100 [facility] [place] [address] 05/31/2010 18:17:55 05/31/2010 19:23:28 [id number] Essence Knowles, DO [facility] [address] [facility] 100 [facility] [place] [address] 10/04/2010 17:25:28 10/04/2010 18:04:57 [id number] Essence Knowles, DO [facility] [address] [facility] 100 [facility] [place] [address] 10/26/2010 15:30:56 10/26/2010 16:47:04 [id number] Nakul Boland, DO [facility] [address] [facility] [place] [facility] [address] 12/19/2010 19:34:25 12/19/2010 20:13:27 [id number] Essence Knowles, DO [facility] [address] [facility] [place] [address] 03/17/2011 14:44:01 03/17/2011 15:31:54 [id number] Essence Knowles, DO [facility] [address] [facility] [place] [address] 06/01/2011 12:28:37 06/01/2011 13:54:09 [id number] Alma Jones, COTTON HEADER-C [facility] [address] [facility] [place] [address] 07/18/2012 19:08:12 07/19/2012 13:17:25 [id number] Essence Knowles, DO [facility] [address] [facility] [place] [address] 05/22/2013 16:22:52 05/23/2013 10:09:02 [id number] Essence Knowles, DO [facility] [address] [facility] [place] [address] 12/15/2013 18:32:26 12/15/2013 19:40:41 [id number] Essence Knowles, DO [facility] [address] [facility] [place] [address] 01/02/2014 10:53:17 01/02/2014 15:51:25 [id number] Essence Knowles, DO [facility] [address] [facility] [place] [address] 03/19/2014 15:04:03 03/19/2014 15:32:34 [id number] ASHTYN Dyer [facility] [address] [facility] [place] [address] 05/10/2015 15:37:23 05/11/2015 11:24:05 [id number] Ashtyn Bolivar, COTTON HEADER [facility] [address] [facility] [address] 07/13/2015 15:34:17 07/14/2015 12:42:51 [id number] Barby Rogel MD [facility] [address] [place] [address] 05/15/2016 17:34:06 05/15/2016 19:08:03 [id number] SAQIB Crow [facility] [address] [place] [address] 08/18/2016 19:13:26 08/21/2016 03:16:32 [id number] [facility] [address] [facility] [place] [facility] [address] 08/06/2017 16:20:46 08/06/2017 21:19:04 [id number] [facility] COTTON HEADER [facility] [address] [facility] [address] 02/11/2018 16:01:06 02/11/2018 21:36:59 [id number] MD kirstin [facility] [facility] [address] [place] [address] 06/06/2018 16:55:47 06/10/2018 16:39:57 Overweight 230601288 E66.3 Diet: 1800 Calories Low Glycemic Diet Exercise: Work up to 30 min 5x/week as tolerated Electrocar diogram abnormal 360312617 R94.31 LVH Intermitte nt palpitations 084891830 R00.2 once per week last few seconds fast and regular for 4 to 5 beats for last 4- 5 yearsTSH normal Essential hypertension 29451420 I10 controlled with treatment Tobacco de pendence syndrome 41944488 F17.758 [id number] Poonam Quinn MD [facility] [place] [facility] [address] [place] [address] 06/19/2018 09:21:20 06/19/2018 10:16:22 Electrocardiogram abnormal 918498830 R94.31 LVH [id number] [facility], COTTON HEADER [facility] [address] [facility] [place] [facility] [address] 09/02/2018 16:58:51 09/03/2018 09:16:52 [id number] Ashtyn Huntington, COTTON HEADER [facility] [address] [place] [address] 11/12/2018 15:01:58 11/12/2018 18:51:23 [id number] Ashtyn Bolivar, COTTON HEADER [facility] [address] [place] [address] 11/29/2021 17:04:20 11/30/2021 06:58:32 [id number] Ashtyn Huntington, COTTON HEADER [facility] [address] [place] [address] 12/15/2021 12:22:05 12/16/2021 08:34:45 [id number] Kai Davis MD [facility] [place] [address] [place] [address] 01/11/2022 16:24:26 01/11/2022 17:30:02 [id number] Kai Davis MD [facility] [address] [place] [address] 02/21/2022 10:08:23 02/21/2022 14:16:00 [id number] Ashtynalistair Bolivar, COTTON HEADER [facility] [address] [place] [address] 03/06/2022 17:54:38 03/07/2022 23:28:20 [id number] Ashtynalistair Bolivar, COTTON HEADER [facility] [address] [place] [address] 05/11/2022 15:06:18 05/12/2022 06:02:02 Health Concerns Section Related Observation LastModified by Organization Detai ls LastModified Time None Recorded Concern Status LastModified by Organization Details LastModified Time None Recorded Advance Directives Directive N: Payers Insurance Date Sequence Insurance Name Policy Number Policy Crawley Covered Member ID Crawley Member ID Guarantor Name 08/18/2022 2 [facility] [place] - [place]) Sangita Umana [id number] Sangita Umana 08/08/2022 1 [facility] (MEDICARE REPLACEMENT/A DVANTAGE - HMO) Sangita Umana [id number] Sangita Umana 08/18/2022 1 [facility] [facility] ([facility]ICARE REPLACEMENT/A DVANTAGE - HMO) [facility] Sangita Umana [id number] Sangita Umana 08/08/2022 1 [place] Sangita Umana [id number] Sangita Umana 08/08/2022 1 [employer] [facility] - MEDICARE SOLUTIONS - [facility] - MEDICARE COMPLETE (MEDICARE REPLACEMENT HMO) [id number] Sangita Umana [id number] Sangita Umana 08/08/2022 1 [facility] [place] [facility] (MEDICAID HMO) Sangita Umana [id number] Sangita Umana 08/08/2022 1 [facility] [place] - [place] (MEDICARE REPLACEMENT HMO) Sangita Umana [id number] Sangita Umana 08/08/2022 1 [facility] [place] (MEDICARE - MEDICAID REPLACEMENT HMO) Sangita Umana [id number] Sangita Umana 08/08/2022 3 [facility] [facility] (MEDICARE REPLACEMENT/A DVANTAGE - HMO) Sangita Umana [id number] Sangita Umana 08/08/2022 1 [facility] - DUAL COMPLETE - DUAL ELIGIBLE - [place] (MEDICARE-MED ICAID REPLACEMENT HMO) Sangita Umana [id number] Sangita Umana 08/08/2022 2 [facility] [place] [facility] (MEDICAID HMO) Sangita Umana [id number] Sangita Umana 08/08/2022 1 [facility] [facility] (MEDICARE REPLACEMENT/A DVANTAGE - HMO) [facility] Sangita Umana [id number] Sangita Umana Notes Date Note Type Note Provider Name and Address Organization Details Recorded Time 06/06/2018 text/html [facility] - Generic H PI 1Reported bypatient.Notes:Saqib nieto seen for [...] or near [place] [address], [place], [address], [facility] 06/06/2018 18:09:31 OBGyn Episode No OBEpisode recorded.
--- OUTSIDE RECORDS SUMMARY | 2024-09-08 14:20 | XMS_ITS | Data Portability ---
Author Organization [place] - [facility], autoContract - [facility] Address [address] [facility] [address] [place] [address] Assessment No assessment recorded. Plan of Treatment Reminders Order Date Submit Date Provider Last Modified By Organization Details Last Modified Time Details Appointments None recorded. Lab culture, urine 011 [employer], [address], [address], 3 04:00:47 Referral None recorded. Procedures None recorded. Surgeries None recorded. Imaging None recorded. Medication Orders Bactrim DS 800 mg-160 mg tablet 011 [facility] [id number], [address] , [place], [address], 3 04:00:47 Patient TargetsNo targets recorded. Patient InstructionsNo instructions recorded. Reason for Referral None Reported. Results Created Date Observation Date Name Description Value Unit Range Abnormal Flag Note LastModifiedBy Organization Detail LastModifiedTime 12/20/19 11 12/21/2010 cultu re, urine source urine-voided URINE- VOIDED Not Available [employer] [address], [address], 12/22/2010 03:34:08 12/20/19 11 12/21/2010 cultu re, urine culture, urine order ed test: cultu re,ur ine micro numbe r: [id number] test statu s: final speci men [...] A 1:100 0 dilut ion Not Available [employer] [address], [address], 12/22/2010 03:34:08 Result Notes None recorded. Problems Name Problem SNOMED Code Status Onset Date Resolution Date Notes Provider Name and Address Organization Details Recorded Time Dysuria 90854441 Active Not Available [facility] 01/21/2013 03:02:05 Problem Notes None recorded. Procedures Surgical History Date Name Laterality Status Provider Name and Address Organization Details Recorded Time 8 Hip Surgery completed Not Available [facility] 03/23/20 11 02:44:39 Imaging Results None recorded. [...] Details Last Updated DateTime 1 154.94 cm 77913.2 5712 g 33.3 kg/m2 98.1 [degF] 66 /min 98 % 98 % 128 mm[Hg] 81 mm[Hg] Amaya Fine (Elenita) [facility] 1 19:46:12 Social History Question Answer Notes LastModified by Organizat ion Details LastModified Time Tobacco Smoking Status Current Every Day Smoker Not Available [facility] 03/16/2011 05:14:21 What Is Your Level Of Caffeine Consumption? Occasional Information not available 03/16/2011 Education 2 Year College Information not available 03/16/2011 Marital Status Information not available 03/16/2011 Are You Sexually Active? No 7 Information not available 03/16/2011 Sex: Unknown Functional Status Question Answer Note LastModified by Organizat ion Details LastModified Time What is your level of alcohol consumption? None [id number] Information n ot available 03/16/2011 What is your occupation? retired Information n ot available 03/16/2011 Mental Status None recorded. Family History Nothing [...] SNOMED-CT Code Diagnosis ICD10 Code Diagnosis Note [id number] ASHTYN Dyer [facility] [address] [facility] 100 [place] [address] 05/05/2010 18:12:34 05/05/2010 19:18:30 [id number] Zena Ramirez MD [facility] [address] [address] 05/10/2010 17:06:55 05/10/2010 18:50:11 [id number] Essence Knowles DO [facility] [address] [place] [address] 05/31/2010 18:17:55 05/31/2010 19:23:28 [id number] Essence Knowles DO [facility] [address] [place] [address] 10/04/2010 17:25:28 10/04/2010 18:04:57 [id number] Essence Knowles, DO [facility] [address] [place] [address] 10/26/2010 15:30:56 10/26/2010 16:47:04 [id number] Patrickprashant Krystian, DO [facility] [address] [facility] [place] [address] 12/19/2010 19:34:25 12/19/2010 20:13:27 [id number] Essence Knowles, DO [facility] [address] [facility] [place] [address] 03/17/2011 14:44:01 03/17/2011 15:31:54 [id number] Essence Knowles, DO [facility] [address] [place] [address] 06/01/2011 12:28:37 06/01/2011 13:54:09 [id number] Alma Jones, OYSTER BUYER-C [facility] [address] [place] [address] 07/18/2012 19:08:12 07/19/2012 13:17:25 [id number] Essence Knowles, DO [facility] [address] [facility] [place] [address] 05/22/2013 16:22:52 05/23/2013 10:09:02 [id number] Essence Knowles, DO [facility] [address] [place] [address] 12/15/2013 18:32:26 12/15/2013 19:40:41 [id number] Essence Knowles DO [facility] [address] [facility] [place] [address] 01/02/2014 10:53:17 01/02/2014 15:51:25 [id number] Essence Knowles, DO [facility] [address] [facility] [address] [facility] [place] [address] 03/19/2014 15:04:03 03/19/2014 15:32:[id number] [facility], OYSTER BUYER [facility] and [address] [facility] [place] [address] 05/10/2015 15:37:23 05/11/2015 11:24:[id number] [facility], OYSTER BUYER [facility] [address] [facility] [place] [address] 07/13/2015 15:34:17 07/14/2015 12:42:51 [id number] Barby Rogel MD [facility] [address] [facility] [address] [facility] [place] [address] 05/15/2016 17:34:06 05/15/2016 19:08:03 [id number] ERIKA Crow [facility] [address] [facility] [address] [facility] [place] [address] 08/18/2016 19:13:26 08/21/2016 03:16:[id number] [facility], OYSTER BUYER [facility] [address] [facility] [address] [facility] [place] [address] 08/06/2017 16:20:46 08/06/2017 21:19:[id number] [facility], [facility] and [address] [facility] 100 [facility] [place] [address] 02/11/2018 16:01:06 02/11/2018 21:36:59 [id number] MD kirstin [facility] [place] [facility] [address] [place] [address] 06/06/2018 16:55:47 06/10/2018 16:39:57 [id number] MD meseret [facility] [place] [facility] [address] [place] [address] 06/19/2018 09:21:20 06/19/2018 10:16:[id number] [facility], OYSTER BUYER [facility] and [address] [facility] [address] [facility] [place] [address] 09/02/2018 16:58:51 09/03/2018 09:16:[id number] [facility], OYSTER BUYER [facility] and [address] [facility] [address] [facility] [place] [address] 11/12/2018 15:01:58 11/12/2018 18:51:[id number] [facility], OYSTER BUYER [facility] [address] [facility] [address] [facility] [place] [address] 11/29/2021 17:04:20 11/30/2021 06:58:[id number] [facility], OYSTER BUYER [facility] and [address] [facility] 100 [facility] [place] [address] 12/15/2021 12:22:05 12/16/2021 08:34:45 [id number] Kai Davis MD [facility] [place] [address] [place] [address] 01/11/2022 16:24:26 01/11/2022 17:30:02 [id number] Kai Davis MD [facility] [place] [address] [place] [address] 02/21/2022 10:08:23 02/21/2022 14:16:[id number] [facility], OYSTER BUYER [facility] [address] [facility] [address] [facility] [place] [address] 03/06/2022 17:54:38 03/07/2022 23:28:[id number] [facility], OYSTER BUYER [facility] [address] [facility] [address] [facility] [place] [address] 05/11/2022 15:06:18 05/12/2022 06:02:02 Health Concerns Section Related Observation LastModified by Organization Detai ls LastModified Time None Recorded Concern Status LastModified by Organization Details LastModified Time None Recorded Advance Directives Directive None Recorded Payers Insurance Date Sequence Insurance Name Policy Number Policy Crawley Covered Member ID Crawley Member ID Guarantor Name 08/18/2022 2 [facility] [place] ([place] - [place]) Sangita Umana [id number] Sangita Umana 08/08/2022 1 [facility] (MEDICARE REPLACEMENT/[place] DVANTAGE - HMO) Sangita Umana [id number] Sangita Umana 08/18/2022 1 [facility] - [place] (MEDICARE REPLACEMENT/A DVANTAGE - HMO) [place] Sangita Umana [id number] Sangita Umana 08/08/2022 1 [place] Sangita Umana [id number] Sangita Umana 08/08/2022 1 [employer] - MEDICARE SOLUTIONS - [employer] - MEDICARE COMPLETE (MEDICARE REPLACEMENT HMO) [id number] Sangita Umana [id number] Sangita Umana 08/08/2022 1 [facility] [place] [facility] (MEDICAID HMO) Sangita Umana [id number] Sangita Umana 08/08/2022 1 [facility] [place] (MEDICARE REPLACEMENT HMO) Sangita Umana [id number] Sangita Umana 08/08/2022 1 [facility] [place] (MEDICARE - MEDICAID REPLACEMENT HMO) Sangita Umana [id number] Sangita Umana 08/08/2022 3 [facility] [place] (MEDICARE REPLACEMENT/A DVANTAGE - HMO) Sangita Umana [id number] Sangita Umana 08/08/2022 1 [facility] - DUAL COMPLETE - DUAL ELIGIBLE - [place] (MEDICARE-MED ICAID REPLACEMENT HMO) Sangita Umana [id number] Sangita Umana 08/08/2022 2 [facility] [place] [place] [facility] (MEDICAID HMO) Sangita Umana [id number] Sangita Umana 08/08/2022 1 [facility] (MEDICARE REPLACEMENT/A DVANTAGE - HMO) FRANCA Umana [id number] Sangita Umana OBGyn Episode No OBEpisode recorded.
--- OUTSIDE RECORDS SUMMARY | 2024-09-08 14:20 | XMS_ITS | Continuity of Care Document ---
Author Organization [facility] ter Address [address] [place] [address] Phone Care Team Providers Care Scribing Machine Operator Name Role Phone Zainab Guzman MD Unavailable Unavailable Procedures Procedure Date Cancel Fee 1st Occurrence Advance Directives Directive Yes / No Effective Date File Name No Information Encounters Encounter Description Practice Location Reason(s) For Visit Diagnoses Date Provider Providers Copied on Encounter [facility], [address] [place] [id number], [place] tel:[phone] [address] [place] [address] No Information 3 Thomas Lamb. [facility] [place], [place], [id number] , [place]. tel:[phone] Referring Provider: Zainab Guzman, [facility] [place], [address] . tel:[phone] Family History Family Member Type Diagnosis Age [...]
--- OUTSIDE RECORDS SUMMARY | 2024-09-08 14:21 | XMS_ITS | Data Portability ---
Author Organization [facility] Address [address] [place] [address] Care Team Providers Care Plasterer Journeyman Name Role Phone MARIA GARCIA OTHER MARY BOLIVAR Primary Care Provider [phone] Assessment No assessment recorded. Plan of Treatment Reminders Order Date Submit Date Provider Last Modified By Organization Details Last Modified Time Details Appointments None recorded. Lab None recorded. Referral dermatologi st referral 2022 023 [email or web address] [facility], [address] [facility] [facility], [address], [place], [address], 3 15:06:17 cardiologis t referral 2021 022 [facility], [address] [facility], [address], [place], [address], 3 14:31:58 physical therapist referral 2021 022 [facility], [address], [address], [place], [address], 2 10:21:30 Procedures lexiscan cardiolite stress test (PROC) 2021 022 [email or web address] 1 Not available 14:14:52 Surgeries None recorded. Imaging None recorded. Medication Orders Kenalog 40 mg/mL suspension for injection 2022 [facility]23 [id number], [address], [place], [place], [id number], 3 16:17:39 methylpredn isolone 4 mg tablets in a dose pack 2021 [facility][id number], [address], [place], [place], [id number], 18:42:42 Lexiscan 0.4 mg/5 mL intravenous syringe 2021 [email or web address] 1 [facility] #73557, [address], [place], [place], [id number], 10:37:35 mupirocin 2 % topical ointment 2021 [facility] #43578, [address], [place], [place], [id number], 13:03:36 montelukast 10 mg tablet 2021 [facility] #31272, [address], [place], [place], [id number], 13:03:37 ProAir HFA 90 mcg/actuati on aerosol inhaler 2021 [facility] #35588, [address], [place], [place], [id number], 2 13:03:37 duloxetine 60 mg capsule,del ayed release 2021 [facility] #43658, [address], [place], [place], [id number], 2 13:03:38 metoprolol succinate ER 25 mg tablet,exte nded release 24 hr 2021 022 [facility]89345, [address] [facility], [place], [place], [id number], 13:03:37 Patient TargetsNo targets recorded. Patient Instructions Encounter Date Encounter Id Patient Instructions Last Modified By Organization Details Last Modified Time 03/06/2022 [id number] depression treatment: care instructions [email or web address] Not available 03/06/2022 21:24:17 05/11/2022 [id number] depression treatment: care instructions [email or web address] Not available 05/11/2022 20:01:49 coordination of care* - no car - needs assistance for transport for epidural injection - grocery assistance [email or web address] Not available 05/23/2022 18:16:41 Reason for Referral Physical Therapist Referral for Tendinitis of right shoulder Referring Physician: Mary Escalon [facility], Encounter Date: 12/15/2021 Organizational Research Consultant Referral for Ac jaci non-ST segment elevation myocardial infarction Referring Physician: Mary Escalon [facility], Encounter Date: 12/15/2021 Manager Social Services Referral for B nehemiah cell carcinoma of skin Referring Physician: Mary Escalon [facility], Encounter Date: 05/11/2022 Results Created Date Observation Date Name Description Value Unit Range Abnormal Flag Note LastModifiedBy Organization Detail LastModifiedTime 12/16/1912/15/2021 COMPL ETE BLOOD COUNT WITH AUTO DIFF white blood cell 8.1 K/uL 4.4-10 .8 Not Available [facility] [place] [address] [place], [address], 12/15/2021 23:05:23 12/16/19 22 12/15/2021 COMPL ETE BLOOD COUNT WITH AUTO DIFF red blood cell 3.99 M/uL 4.02-5 .18 low Not Available [facility] [place] [address] [place], [address], 12/15/2021 23:05:23 12/16/19 22 12/15/2021 COMPL ETE BLOOD COUNT WITH AUTO DIFF hemoglobin 13.1 g/dL 11.5-1 5.5 Not Available [facility] [place] [address], [place], [address], 12/15/2021 23:05:23 12/16/19 22 12/15/2021 COMPL ETE BLOOD COUNT WITH AUTO DIFF hematocrit 39.5 % 36.0-4 8.0 Not Available [facility] [place] [address], [place], [address], 12/15/2021 23:05:23 12/16/19 22 12/15/2021 COMPL ETE BLOOD COUNT WITH AUTO DIFF mean corpuscular volume 99.0 fL 80.0-9 7.0 high Not Available [facility] [place] [address], [place], [address], 12/15/2021 23:05:23 12/16/19 22 12/15/2021 COMPL ETE BLOOD COUNT WITH AUTO DIFF mean corpuscular hemoglobin 32.8 pg 25.8-3 2.9 Not Available [facility] [place] [address], [place], [address], 12/15/2021 23:05:23 12/16/19 22 12/15/2021 COMPL ETE BLOOD COUNT WITH AUTO DIFF mean corpuscular hemoglobin concentratio n 33.2 g/dL 31.0-3 5.0 Not Available [facility] [place] [address], [place], [address], 12/15/2021 23:05:23 12/16/19 22 12/15/2021 COMPL ETE BLOOD COUNT WITH AUTO DIFF red cell distribution width 14.2 % 11.1-1 5.1 Not Available [facility] [place] [address], [place], [address], 12/15/2021 23:05:23 12/16/19 22 12/15/2021 COMPL ETE BLOOD COUNT WITH AUTO DIFF platelets 258 K/uL 140-40 0 Not Available [facility] [place] [address] [facility], [place], [address], 12/15/2021 23:05:23 12/16/19 22 12/15/2021 COMPL ETE BLOOD COUNT WITH AUTO DIFF mean platelet volume 10.3 fL 7.5-14 .0 Not Available [facility] [place] [address] [facility], [place], [address], 12/15/2021 23:05:23 12/16/19 22 12/15/2021 COMPL ETE BLOOD COUNT WITH AUTO DIFF neutrophil, percentage 67.8 % 38.8-7 6.4 Not Available [facility] [place] [address] [facility], [place], [address], 12/15/2021 23:05:23 12/16/19 22 12/15/2021 COMPL ETE BLOOD COUNT WITH AUTO DIFF lymphocyte, percentage 24.1 % 17.8-4 6.6 Not Available [facility] [place] [address], [place], [address], 12/15/2021 23:05:23 12/16/19 22 12/15/2021 COMPL ETE BLOOD COUNT WITH AUTO DIFF monocyte, percentage 4.8 % 3.0-11 .0 Not Available [facility] [place] [address], [place], [address], 12/15/2021 23:05:23 12/16/19 22 12/15/2021 COMPL ETE BLOOD COUNT WITH AUTO DIFF eosinophil, percentage 2.0 % 0.0-6. 0 Not Available [facility] [place] [address] [facility], [place], [address], 12/15/2021 23:05:23 12/16/19 22 12/15/2021 COMPL ETE BLOOD COUNT WITH AUTO DIFF basophil, percentage 0.9 % 0.0-2. 0 Not Available [facility] [place] [address] [facility], [place], [address], 12/15/2021 23:05:23 12/16/19 22 12/15/2021 COMPL ETE BLOOD COUNT WITH AUTO DIFF neutrophil, absolute 5.5 K/uL 1.9-7. 9 Not Available [facility] [place] [address] [facility], [place], [address], 12/15/2021 23:05:23 12/16/19 22 12/15/2021 COMPL ETE BLOOD COUNT WITH AUTO DIFF lymphocyte, absolute 2.0 K/uL 1.0-4. 9 Not Available [facility] [place] [address] [facility], [place], [address], 12/15/2021 23:05:23 12/16/19 22 12/15/2021 COMPL ETE BLOOD COUNT WITH AUTO DIFF monocyte, absolute 0.4 K/uL 0.1-1. 2 Not Available [facility] [place] [address] [place], [address], 12/15/2021 23:05:23 12/16/19 22 12/15/2021 COMPL ETE BLOOD COUNT WITH AUTO DIFF eosinophil, absolute 0.2 K/uL 0.0-0. 7 Not Available [facility] [place] [address] [place], [address], 12/15/2021 23:05:23 12/16/19 22 12/15/2021 COMPL ETE BLOOD COUNT WITH AUTO DIFF basophil, absolute 0.1 K/uL 0.0-0. 2 Not Available [facility] [place] [address] [place], [address], 12/15/2021 23:05:23 12/16/19 22 12/15/2021 COMPL ETE BLOOD COUNT WITH AUTO DIFF immature granulocytes % 0.4 % 0.0-3. 0 Not Available [facility] [place] [address] [place], [address], 12/15/2021 23:05:23 12/16/19 22 12/15/2021 COMPL ETE BLOOD COUNT WITH AUTO DIFF immature granulocytes # 0.0 K/uL 0.0-0. 3 Not Available [facility] [place] [address] [place], [address], 12/15/2021 23:05:23 12/16/19 22 12/15/2021 COMPL ETE BLOOD COUNT WITH AUTO DIFF nucleated red blood cell % 0.0 % 0.0-0. 0 Not Available [facility] [place] [address] [place], [address], 12/15/2021 23:05:23 12/16/19 22 12/15/2021 COMPL ETE BLOOD COUNT WITH AUTO DIFF nucleated red blood cell # 0.0 K/uL 0.0-0. 0 Not Available [facility] [place] [address] [place], [address], 12/15/2021 23:05:23 12/16/19 22 12/15/2021 CREAT INE KINAS E creatine kinase 78 U/L 25-160 Not Available [facility] [place] [address] [place], [address], 12/15/2021 23:05:24 12/16/19 22 12/15/2021 COMPR EHENS ANDRIY METAB OLIC PANEL W/EGF R (14) glucose, random 152 mg/dL 70-100 high Not Available [facility] [place] [address], [place], [address], 12/15/2021 23:05:24 12/16/19 22 12/15/2021 COMPR EHENS ANDRIY METAB OLIC PANEL W/EGF R (14) BUN 34 mg/dL 8-25 high Not Available [facility] [place] [address], [place], [address], 12/15/2021 23:05:24 12/16/19 22 12/15/2021 COMPR EHENS ANDRIY METAB OLIC PANEL W/EGF R (14) creatinine 1.1 mg/dL 0.6-1. 4 For patie nts >49 years of age, the refer ence limit for Creat inine is appro ximat tessa 13% highe r for peopl e ident ified as Afric an-Am lorraine n. Not Available [facility] [place] [address], [place], [address], 12/15/2021 23:05:24 12/16/19 22 12/15/2021 COMPR EHENS [...] on CKD. Not Available [facility] [place] [address], [place], [address], 12/15/2021 23:05:24 12/16/19 22 12/15/2021 COMPR EHENS [...] on CKD. Not Available [facility] [place] [address] [place], [address], 12/15/2021 23:05:24 12/16/19 22 12/15/2021 COMPR EHENS ANDRIY METAB OLIC PANEL W/EGF R (14) BUN/creat ratio 31 ratio 10-28 high Not Available [facility] [place] [address] [place], [address], 12/15/2021 23:05:24 12/16/19 22 12/15/2021 COMPR EHENS ANDRIY METAB OLIC PANEL W/EGF R (14) bilirubin, total 0.4 mg/dL 0.2-1. 3 Not Available [facility] [place] [address] [place], [address], 12/15/2021 23:05:24 12/16/19 22 12/15/2021 COMPR EHENS ANDRIY METAB OLIC PANEL W/EGF R (14) AST (SGOT) 53 U/L 14-36 high Not Available [facility] [place] [address] [place], [address], 12/15/2021 23:05:24 12/16/19 22 12/15/2021 COMPR EHENS ANDRIY METAB OLIC PANEL W/EGF R (14) ALT (SGPT) 83 U/L 7-41 high Not Available [facility] [place] [address] [place], [address], 12/15/2021 23:05:24 12/16/19 22 12/15/2021 COMPR EHENS ANDRIY METAB OLIC PANEL W/EGF R (14) alkaline phosphatase 66 U/L 40-135 Not Available [facility] [place] [address] [place], [address], 12/15/2021 23:05:24 12/16/19 22 12/15/2021 COMPR EHENS ANDRIY METAB OLIC PANEL W/EGF R (14) calcium 9.1 mg/dL 8.4-10 .2 Not Available [facility] [place] [address] [place], [address], 12/15/2021 23:05:24 12/16/19 22 12/15/2021 COMPR EHENS ANDRIY METAB OLIC PANEL W/EGF R (14) sodium 137 mmol/ L 134-14 4 Not Available [facility] [place] [address] [place], [address], 12/15/2021 23:05:24 12/16/19 22 12/15/2021 COMPR EHENS ANDRIY METAB OLIC PANEL W/EGF R (14) potassium 4.2 mmol/ L 3.5-5. 2 Not Available [facility] [place] [address] [place], [address], 12/15/2021 23:05:24 12/16/19 22 12/15/2021 COMPR EHENS ANDRIY METAB OLIC PANEL W/EGF R (14) chloride 105 mmol/ L 96-110 Not Available [facility] [place] [address] [place], [address], 12/15/2021 23:05:24 12/16/19 22 12/15/2021 COMPR EHENS ANDRIY METAB OLIC PANEL W/EGF R (14) CO2 23 mmol/ L 22-30 Not Available [facility] [place] [address] [place], [address], 12/15/2021 23:05:24 12/16/19 22 12/15/2021 COMPR EHENS ANDRIY METAB OLIC PANEL W/EGF R (14) total protein 6.9 g/dL 6.3-8. 2 Not Available [facility] [place] [address] [place], [address], 12/15/2021 23:05:24 12/16/19 22 12/15/2021 COMPR EHENS ANDRIY METAB OLIC PANEL W/EGF R (14) albumin 4.4 g/dL 3.5-5. 0 Not Available [facility] [place] [address] [place], [address], 12/15/2021 23:05:24 12/16/19 22 12/15/2021 COMPR EHENS ANDRIY METAB OLIC PANEL W/EGF R (14) globulin 2.5 g/dL 2.0-3. 7 Not Available [facility] [place] [address] [place], [address], 12/15/2021 23:05:24 12/16/19 22 12/15/2021 COMPR EHENS ANDRIY METAB OLIC PANEL W/EGF R (14) albumin/glob ulin 1.8 ratio 1.0-2. 4 Not Available [facility] [place] [address] [place], [address], 12/15/2021 23:05:24 12/16/19 22 12/15/2021 COMPR EHENS ANDRIY METAB OLIC PANEL W/EGF R (14) anion gap 8 ratio 4-18 Not Available [facility] [place] [address] [place], [address], 12/15/2021 23:05:24 12/16/19 22 12/15/2021 TSH RFLX TO FREE T4 TSH 1.08 mIU/L 0.45-4 .50 Not Available [facility] [place] [address], [place], [address], 12/15/2021 23:05:25 12/16/19 22 12/15/2021 URINA LYSIS WITH MICRO SCOPI C REFLX CULTU RE urine color LIGHT- YELLOW yellow abnormal Not Available [facility] [place] [address] [facility], [place], [address], 12/15/2021 23:05:26 12/16/19 22 12/15/2021 URINA LYSIS WITH MICRO SCOPI C REFLX CULTU RE urine clarity CLEAR clear Not Available [facility] [place] [address], [place], [address], 12/15/2021 23:05:26 12/16/19 22 12/15/2021 URINA LYSIS WITH MICRO SCOPI C REFLX CULTU RE urine glucose NEGATI VE negati ve Not Available [facility] [place] [address], [place], [address], 12/15/2021 23:05:26 12/16/19 22 12/15/2021 URINA LYSIS WITH MICRO SCOPI C REFLX CULTU RE urine ketones NEGATI VE negati ve Not Available [facility] [place] [address], [place], [address], 12/15/2021 23:05:26 12/16/19 22 12/15/2021 URINA LYSIS WITH MICRO SCOPI C REFLX CULTU RE urine bilirubin NEGATI VE negati ve Not Available [facility] [place] [address], [place], [address], 12/15/2021 23:05:26 12/16/19 22 12/15/2021 URINA LYSIS WITH MICRO SCOPI C REFLX CULTU RE urine specific gravity 1.011 1.005- 1.030 Not Available [facility] [place] [address], [place], [address], 12/15/2021 23:05:26 12/16/19 22 12/15/2021 URINA LYSIS WITH MICRO SCOPI C REFLX CULTU RE urine pH 5.5 5.0-7. 0 Not Available [facility] [place] [address], [place], [address], 12/15/2021 23:05:26 12/16/19 22 12/15/2021 URINA LYSIS WITH MICRO SCOPI C REFLX CULTU RE urine hemoglobin TRACE negati ve abnormal Not Available [facility] [place] [address], [place], [address], 12/15/2021 23:05:26 12/16/19 22 12/15/2021 URINA LYSIS WITH MICRO SCOPI C REFLX CULTU RE urine protein NEGATI VE negati ve Not Available [facility] [place] [address] [facility] [address], [place], [address], 12/15/2021 23:05:26 12/16/19 22 12/15/2021 URINA LYSIS WITH MICRO SCOPI C REFLX CULTU RE urine urobilinogen NORMAL mg/dL normal Not Available [facility] [place] [address], [place], [address], 12/15/2021 23:05:26 12/16/19 22 12/15/2021 URINA LYSIS WITH MICRO SCOPI C REFLX CULTU RE urine nitrate NEGATI VE negati ve Not Available [facility] [place] [address], [place], [address], 12/15/2021 23:05:26 12/16/19 22 12/15/2021 URINA LYSIS WITH MICRO SCOPI C REFLX CULTU RE urine leukocyte esterase NEGATI VE chris/u L negati ve Not Available [facility] [place] [address] [facility], [place], [address], 12/15/2021 23:05:26 12/16/19 22 12/15/2021 URINA LYSIS WITH MICRO SCOPI C REFLX CULTU RE urine white blood cells <6 /hpf <6 Not Available [facility] [place] [address] [facility], [place], [address], 12/15/2021 23:05:26 12/16/19 22 12/15/2021 URINA LYSIS WITH MICRO SCOPI C REFLX CULTU RE urine red blood cells <5 /hpf <5 Not Available [facility] [place] [address] [facility], [place], [address], 12/15/2021 23:05:26 12/16/19 22 12/15/2021 URINA LYSIS WITH MICRO SCOPI C REFLX CULTU RE urine bacteria NEGATI VE /hpf negati ve Not Available [facility] [place] [address] [facility], [place], [address], 12/15/2021 23:05:26 12/16/19 22 12/15/2021 URINA LYSIS WITH MICRO SCOPI C REFLX CULTU RE urine squamous epithelial cells FEW /hpf few Not Available [facility] [place] [address] [facility], [place], [address], 12/15/2021 23:05:26 12/16/19 22 12/15/2021 MICRO ALBUM IN/CR EATIN INE RATIO , RANDO M albumin, urine <3.0 Noah ified by qasim black sheila sis Not Available [address], [address], 12/16/2021 16:11:33 12/16/19 22 12/15/2021 MICRO ALBUM IN/CR EATIN INE RATIO , RANDO M alb/creat ratio <7 Tena l: 0 - 29 Moder ately incre ased: 30 - 300 Sever tessa incre ased: >300 Not Available [facility] [address] [place], [address], 12/16/2021 16:11:33 12/16/19 22 12/16/2021 MICRO ALBUM IN/CR EATIN INE RATIO , RANDO M creatinine, urine 43.7 mg/dL not estab. normal Not Available [facility] [address] [place], [address], 12/16/2021 16:11:33 01/10/20 22 11/08/2021 US, echoc ardio gram, trans thora cic, compl ete, w/ color flow No observ ation record ed. [email or web address] Not Available 01/09 12:25:18 01/10/20 22 11/07/2021 CT, chest , w/ contr ast No observ ation record ed. [email or web address] Not Available 01/09 12:26:35 01/10/20 22 11/08/2021 elect rocar diogr am No observ ation record ed. [email or web address] Not Available 01/09 13:04:25 02/28/20 22 02/21/2022 [...] Time Mixed anxiety and depressiv e disorder 986792302 Active APRIL DyerP [address], [place], [address] , [facility] 6 23:05:09 Degenerat ion of lumbar intervert ebral disc 49362490 Active Mary Bolivar [facility] [address], [place], [address] , [facility] 6 23:05:09 Cigarette smoker 74359720 Active APRIL DyerP [address], [place], [address] , [facility] 6 23:05:09 Degenerat ion of lumbosacr al intervert ebral disc 03753321 Active Mary Bolivar [facility] [address], [place], [address] , [facility] 6 23:05:09 Increased frequency of urination 215147740 Active [address] [facility] [address], [place], [address] , [facility] 8 17:30:33 Visual disturban ce 35207733 Active [address] [facility] [address], [place], [address] , [facility] 8 17:35:59 Mild memory disturban ce 957586479 Active [address] [facility] [address], [place], [address] , [facility] 8 20:54:57 Long-term current use of opiate analgesic drug 84521239419 4108 Active [address] [facility] [address], [place], [address] , [facility] 8 21:00:28 Overweigh t 179856585 Active 2017 Mary Bolivar, [employer] [address], [place], [address] , [place] [facility] 8 17:16:33 History of hepatitis C 06785291449 101 Active 2017 APRIL DyerP [address], [place], [address] , [facility] 8 17:18:05 Malaise and fatigue 239359372 Active 2017 APRIL DyerP [address], [place], [address] , [facility] 8 17:19:09 Intermitt ent palpitati ons 952442078 Active 2017 APRIL DyerP [address], [place], [address] , [facility] 8 17:39:53 Blood glucose outside reference range 503020509 Active 2018 APRIL DyerP [address], [place], [address] , [facility] 9 18:44:22 Spinal stenosis in cervical region 12725846 Active 2018 Mary Bolivar [employer] [address], [place], [address] , [facility] 9 15:58:06 Lumbar post-lami nectomy syndrome 869333402 Active 2018 Mary Bolivar [employer] [address], [place], [address] , [facility] - [facility] 9 16:04:11 Palpitati ons 69551223 Active 2017 Not Available [facility] 0 10:47:05 Acute injury of kidney 73249493236 321107 Active 2021 APRIL DyerP [address], [place], [address] , [facility] 2 17:55:57 Rhabdomyo lysis 954176002 Active 2021 [facility], [employer] [address], [place], [address] , [facility] 2 17:56:19 Acute non-ST segment elevation myocardia l infarctio n 994060112 Active 2021 Mary Escalon, [employer] [address], [place], [address] , [facility] 2 18:04:07 Body mass index 20-24 - normal 245903434 Active 2021 Mary Bolivar, [employer] [address], [place], [address] , [facility] 2 22:02:51 Tendiniti s of right shoulder 67745004670 84567 Active 2021 Mary Escalon, [employer] [address], [place], [address] , [facility] 2 12:45:33 Superfici al injury of foot without infection 48622317 Active 2021 [facility], [employer] [address], [place], [address] , [facility] 2 12:51:42 Infection of skin 198714519 Active 2021 Mary Escalon, [employer] [address], [place], [address] , [facility] 2 12:56:57 Liver enzymes level above reference range 150533155 Active 2021 [facility], [employer] [address], [place], [address] , [facility] 2 16:01:49 Celluliti s of foot 114784322 Active 2021 [facility], [employer] [address], [place], [address] , [facility] 2 22:38:23 Headache 87617516 Active 2021 Mary Bolivar, [employer] [address], [place], [address] , [facility] 2 23:51:23 Liver function tests outside reference range 050596662 Active 2021 Mary Bolivar [employer] [address], [place], [address] , [facility] 2 18:25:35 Lumbar radiculop athy 902659897 Active 2021 Mary Bolivar [employer] [address], [place], [address] , [facility] 2 15:21:10 Basal cell carcinoma of skin 068260591 Active 2022 APRIL DyerP [address], [place], [address] , [facility] 3 15:35:25 Lumbago with sciatica 262017322 Active 2022 Mary Bolivar, [employer] [address], [place], [address] , [facility] 3 15:47:59 Finding of hand region [id number] Completed 05/10/2015 Mary Bolivar [employer] [address], [place], [address] , [facility] 6 23:05:09 Gastroeso phageal reflux disease 167207772 Active Mary Bolivar [employer] [address], [place], [address] , [facility] 6 23:05:09 Chronic pain syndrome 903827959 Active Mary Bolivar [employer] [address], [place], [address] , [facility] 6 23:05:09 Cough [id number] Completed 08/06/2017 Mary Bolivar, [employer] [address] [address], [place], [address] , [place] [facility] 8 17:19:04 Menopausa l symptom 35391500 Active Mary Escalon, [employer] [address], [place], [address] , [place] - [facility] 6 23:05:09 Benign essential hypertens ion 2845362 Active [facility], [employer] [address], [place], [address] , [place] - [facility] 6 23:05:09 Benign essential hypertens ion 2178876 Completed 05/10/2010 Mary Escalon, [employer] [address], [place], [address] , [place] - [facility] 6 23:05:09 Acute hepatitis C 282251073 Completed 02/11/2018 [facility], [employer] [address], [place], [address] , [facility] - [facility] 8 17:17:48 Feeling nervous 203887927 [facility], [employer] [address], [place], [address] , [facility] - [facility] 6 23:05:09 Generaliz ed osteoarth ritis 342210013 [facility] [employer] [address], [place], [address] , [facility] - [facility] 6 23:05:09 Depressiv e disorder 37095678 [facility], [employer] [address], [place], [address] , [place] - [facility] 6 23:05:09 Closed fracture of phalanx of foot 04990248 [facility] [employer] [address], [place], [address] , [place] - [facility] [place] 6 23:05:09 Tobacco dependenc e syndrome 71101245 Completed 08/06/2017 Mary Bolivar, [employer] [address], [place], [address] , [facility] 8 17:22:06 Shoulder joint pain 258625282 Active Mary Bolivar, [employer] [address], [place], [address] , [facility] 6 23:05:09 Carpal tunnel syndrome 69280355 Active Mary Escalon, [employer] [address], [place], [address] , [facility] 6 23:05:09 Obesity 469948266 Active Mary Escalon, [employer] [address], [place], [address] , [facility] 6 23:05:09 Osteopeni a 497411562 Active Mary Escalon [employer] [address], [place], [address] , [facility] 6 23:05:09 Low back pain 892473063 Completed 08/06/2017 Mary Escalon [employer] [address], [place], [address] , [facility] 8 20:57:40 Asthma 823845287 Active Mary Escalon, [employer] [address], [place], [address] , [facility] 6 23:05:09 Problem Notes None recorded. Procedures Surgical History Date Name Laterality Status Provider Name and Address Organization Details Recorded Time 02/22/20 22 Stress MPI INITIAL - Lexiscan (IAC) completed Rebecca Matthew [facility] 02/21/2022 14:09:56 02/22/20 22 Stress MPI RESULT - Normal (IAC) [place] [address], [place], [address], [facility] 02/27/2022 10:37:33 12/30/19 21 Knee Replacement completed Mary Bolivar, [employer] [address], [place], [address], [facility] 11/29/2021 17:59:04 08/07/19 18 PCM Nicotine SMOKING completed Pascaledaniel Chu [facility] 08/06/2017 16:48:59 08/19/19 17 PCMH Nicotine SMOKING completed SUNG Marsh [facility] 08/18/2016 19:24:27 05/15/19 17 PCM Nicotine SMOKING completed Rakan Chase [facility] 05/15/2016 18:20:54 05/15/19 17 [facility] Depression Screening PHQ9 completed Rakan Chase [facility] 05/15/2016 18:20:44 04/30/19 10 Other (Please specify) completed Not Available [facility] 03/23/2011 02:44:30 04/30/19 09 Hip Surgery completed Not Available [facility] 03/23/2011 02:44:30 04/30/19 00 Tubal Ligation completed Not Available [facility] 03/23/2011 02:44:30 04/30/18 99 Cholecystectomy completed Not Available [facility] 03/23/2011 02:44:30 Gallbladder Surgery completed Alla Mccabe [facility] 01/11/2022 16:28:45 Back Surgery completed Alla Mccabe [facility] 01/11/2022 16:28:45 Joint Replacement completed Chula Mccabe [facility] 01/11/2022 16:28:45 Spine Surgery (Cervical, Thoracic, Lumbar) completed Alla Mccabe [facility] 01/11/2022 16:28:45 Section completed Mary Bolivar, [employer] [address], [place], [address], [facility] 03/06/2022 18:43:29 Breast Surgery (Lumpectomy, Biopsy, Implants) completed Mary Bolivar, [employer] [address], [place], [address], [facility] 03/06/2022 18:43:29 Carpal tunnel surgery completed Mary Bolivar, [employer] [address], [place], [address], [place] [facility] 06/12/2017 11:13:47 Imaging Results Imaging Date Name Status LastModified by Organization Details LastModified Time 11/08/2021 US, echocardiogram, transthoracic, complete, w/ color flow completed Information not available 01/09/2022 12:25:18 11/07/2021 CT, chest, w/ contrast completed [email or web address] Information not available 01/09/2022 12:26:35 11/08/2021 electrocardiogram completed [email or web address] Informa tion not available 01/09/2022 13:04:25 02/21/2022 [...] Updated DateTime 2 152.4 cm 21.6 kg/m2 07047.3 2 g 99.3 [degF] 99 % 99 % 69 /min 14 /min 140 mm[Hg] 80 mm[Hg] Pina Gambino [facility] 2 12:30:23 Date Recorded Body height Body mass index (BMI) Body weight Heart rate Oxygen saturation Oxygen saturation in Arterial blood by Pulse oximetry Systolic blood pressure Diastolic blood pressure Provider Name and Address Organization Details Last Updated DateTime 2 152.4 cm 23 kg/m2 23593.9 g 72 /min 98 % 98 % 122 mm[Hg] 66 mm[Hg] Alla Mccabe [facility] 2 16:38:02 Date Recorded Body height Body mass index (BMI) Body weight Body temperature Heart rate Respiratory rate Oxygen saturation Oxygen saturation in Arterial blood by Pulse oximetry Systolic blood pressure Diastolic blood pressure Provider Name and Address Organization Details Last Updated DateTime 2 152.4 cm 23.5 kg/m2 85986.1 8 g 98 [degF] 50 /min 16 /min 97 % 97 % 126 mm[Hg] 67 mm[Hg] Yin May [facility] 2 18:21:37 Date Recorded Body height Body mass index (BMI) Body weight Body temperature Respiratory rate Oxygen saturation Oxygen saturation in Arterial blood by Pulse oximetry Heart rate Systolic blood pressure Diastolic blood pressure Provider Name and Address Organization Details Last Updated DateTime 3 152.4 cm 23.4 kg/m2 50822.0 8 g 98.7 [degF] 16 /min 99 % 99 % 64 /min 110 mm[Hg] 80 mm[Hg] Pina Gambino [facility] 3 15:18:31 Social History Question Answer Notes LastModified by Organizat ion Details LastModified Time Tobacco Smoking Status Current Every Day Smoker [facility], [facility] [address], [place], [address], [facility] 03/06/2022 18:43:22 Do You Have An Advance Directive? No Information not available 01/11/2022 Are You Blind Or Do You Have Difficulty Seeing? Yes [email or web address] Information not available 01/11/2022 Is Blood Transfusion Acceptable In An Emergency? Yes [email or web address] Information not available 01/11/2022 What Is Your Level Of Caffeine Consumption? Moderate [email or web address] Information not available 01/11/2022 How Much Tobacco Do You Chew? None Information not available 09/02/2018 Are You Deaf Or Do You Have Serious Difficulty Hearing? No [email or web address] Information not available 01/11/2022 What Type Of Diet Are You Following? REGULAR Information not available 08/06/2017 When Did You Quit Smoking? 1-5yearssin celastcigar ette Information not available 11/29/2021 Which Of Your Hands Is Dominant? Right [email or web address] Information not available 01/11/2022 Marital Status Informatio n not available 03/06/2022 What Was The Date Of Your Most Recent Tobacco Screening? 05/11/2022 [email or web address] Information not available 05/11/2022 Do You Have Any Pets? No [email or web address] Information not available 01/11/2022 What Is Your Relationship Status? [email or web address] Information not available 01/11/2022 Are You Sexually Active? No Information not available 03/06/2022 At What Age Did You Start Smoking Tobacco? 47 Information not available 03/06/2022 How Much Tobacco Do You Smoke? No Rolls Own Cigarettes Information not available 03/06/2022 Has Tobacco Cessation Counseling Been Provided? Yes Information not available 03/06/2022 On What Date Was Tobacco Cessation Counseling Provided? 05/11/2022 Information not available 05/11/2022 How Many Years Have You Smoked Tobacco? 42 Information not available 03/06/2022 Sex: Unknown Functional Status Question Answer Note LastModified by Organizat ion Details LastModified Time Do you use any illicit or recreational drugs? No [email or web address] Information not available 01/11/2022 Do you or have you ever used any other forms of tobacco or nicotine? No [email or web address] Information not available 01/11/2022 What is your level of alcohol consumption? None clean and sober Information not available 05/10/2015 Are you currently employed? No [email or web address] Information not available 01/11/2022 Are you able to care for yourself? Yes [email or web address] Information not available 01/11/2022 What is your occupation? disability Information not available 08/06/2017 What is your exercise level? Moderate [email or web address] Information not available 01/11/2022 Mental Status Question Answer Note LastModified by Organization D etails LastModified Time Do you feel stressed (tense, restless, nervous, or anxious, or unable to sleep at night)? [id number] [email or web address] Information not available 01/11/2022 Family History Relationship Description Onset Age of [...] Not available 2021 18:43:09 Mother Hypertensive disorder [email or web address] Not available 01/11 16:28:33 Mother Hyperlipidem ia [...] available 2021 18:43:10 Maternal Grandmother Hypertensive disorder [email or web address] Not available 01/11 16:28:33 Maternal Grandmother Family [...] virus, quadrivalent, PF 4 completed Not Available [facility] 05/17/2019 02:10:36 zoster recombinant 8 completed Pina Patullo null, [facility] 12/15/2021 12:22:52 Influenza, split virus, trivalent, preservative 0 completed Pina Patullo null, [facility] 12/15/2021 12:22:52 Influenza, split virus, quadrivalent, PF 6 completed Pina Patullo null, [facility] 12/15/2021 12:22:52 zoster recombinant 8 completed Pina Patullo null, [facility] 12/15/2021 12:22:52 Past Encounters Encounter ID Performer Location Encounter Start Date Encounter Closed Date Diagnosis/Indication Diagnosis SNOMED-CT Code Diagnosis ICD10 Code Diagnosis Note [id number] ASHTYN Dyer [facility] [address] [facility] [address] [place] [address] 05/05/2010 18:12:34 05/05/2010 19:18:30 [id number] Zena Ramirez MD [facility] [address] [place] [address] 05/10/2010 17:06:55 05/10/2010 18:50:11 [id number] Essence Knowles, [facility] and [address] [place] [address] 05/31/2010 18:17:55 05/31/2010 19:23:28 [id number] Essence Knowles, DO [facility] and [address] [facility] [place] [address] 10/04/2010 17:25:28 10/04/2010 18:04:57 [id number] Essence Knowles, DO [facility] and [address] [facility] [place] [address] 10/26/2010 15:30:56 10/26/2010 16:47:04 [id number] Nakul Boland, DO [email or web address] [address] [facility] [place] [address] 12/19/2010 19:34:25 12/19/2010 20:13:27 [id number] Essence Knowles, DO [facility] [address] [facility] [place] [address] 03/17/2011 14:44:01 03/17/2011 15:31:54 [id number] Essence Knowles, DO [facility] and [address] [place] [address] 06/01/2011 12:28:37 06/01/2011 13:54:09 [id number] Alma Jones, [employer] [facility] and [address] [facility] [place] [address] 07/18/2012 19:08:12 07/19/2012 13:17:25 [id number] Essence Knowles, DO [facility] [address] [facility] [place] [address] 05/22/2013 16:22:52 05/23/2013 10:09:02 Feeling nervous 875285133 RF meds, use as directed. Tobacco de pendence syndrome 01527211 Pt unwilling to quit at this time. Cough likely related. Discussed risk of COPD. Benign ess ential hypertension 4848110 Restart meds, check labs. Acute hepatitis C 169135942 check labs. [id number] Essence Knowles, DO [facility] [address] [place] [address] 12/15/2013 18:32:26 12/15/2013 19:40:41 Benign essential hypertension 9591460 Check labs, continue meds. Feeling nervous 820132875 RF meds, use as directed. Obesity 339077431 Encour aged healthy diet and exercise. Carpal dorys mellissa syndrome 64621312 Send to specialist . Acute hepatitis C 438831075 check labs. [id number] Essence Knowles, DO [facility] and [address] [place] [address] 01/02/2014 10:53:17 01/02/2014 15:51:25 Osteopenia 925709069 Due for DEXA scan, ordered. Tobacco de pendence syndrome 45406631 Pt unwilling to quit at this time. Discussed risk of COPD. [id number] Essence Knowles, DO [facility] and [address] [place] [address] 03/19/2014 15:04:03 03/19/2014 15:32:34 Influenza vaccine needed 8838011182 106 Asthma 188008605 RF inhaler, using occasional ly. Discussed asthma action plan. [id number] ASHTYN Dyer [facility] [address] [place] [address] 05/10/2015 15:37:23 05/11/2015 11:24:05 Asthma 387657963 J45.909 Inhaler prn wheeze Benign ess ential hypertension 6804324 I10 continue Lisinopril /HTTZ; monitor BP Tobacco de pendence syndrome 42893798 F17.290 ASHLINE.OR G to assist with cessation Influenza vaccine needed 3328238091 106 Z23 Mixed anxi ety and depressive disorder 521542822 F41.8 needs follow-up with psych; discuss combinatio n of Lorazepam and pain medication s can cause excessive sedation Osteopenia 202729349 M85 .80 Degenerati on of lumbar intervertebral disc 15951999 M51.36 Continue PM follow-up [id number] [facility], [facility] and [address] [place] [address] 07/13/2015 15:34:17 07/14/2015 12:42:51 Cigarette smoker 09354235 F17.210 Discuss triggers - Patch to help quit - start 21 mg/day then decrease to 14 mg/day - no smoking while on patch Mixed anxi ety and depressive disorder 159294902 F41.8 Discuss need for psych referral - OK refill Lorazepam - avoid using daily - can develop tolerance Benign ess ential hypertension 9010241 I10 continue Lisinopril /HTTZ; monitor BP [id number] Barby Rogel MD [facility] [address] [place] [address] 05/15/2016 17:34:06 05/15/2016 19:08:03 Shoulder joint pain 579558369 M25.511 ref to Ortho.outs bonita records reviewed.O n chronic opioids. [id number] ERIKA Crow [facility] [address] [facility] [place] [address] 08/18/2016 19:13:26 08/21/2016 03:16:32 Nicotine dependence 19639559 F17.210 Quitting smoking including medication s options discussed, risks and benefits discussed. Diarrhea 13659768 R19.7 due to intoleranc e to water intake, advised ER for IV fluids. OK to take pepto bismol, imodium, and zofran for s/sx control post-ER visit with close f/u 3-5 days for persisting s/sx. Nausea 772843642 R11.0 ok for PRN zofran Benign ess ential hypertension 2864957 I10 stable; avoid medication s until dehydratio n resolved. [id number] [facility], [facility] and [address] [place] [address] 08/06/2017 16:20:46 08/06/2017 21:19:04 Benign essential hypertension 0813379 I10 Lisinopril to 40 mg daily ; monitor BP - ideally < 140/90 Asthma 291663605 J45.90 9 Inhaler prn wheeze Cigarette smoker 3850551 7 F17.210 Discuss triggers - Patch to help quit - start 7 mg/day - no smoking while on patch Chronic pain syndrome 37 4969627 G89.4 seen by pain management Degenerati on of lumbosacral intervertebral disc 72244222 M51.37 seen by pain management ; epidural helping Increased frequency of urination 040601976 R35.0 recheck labs Viral screening 89867278 4 Z11.59 Screening mammography 24 516545 Z12.31 Visual disturbance 67776 001 H53.9 referral submitted Administra tion of viral vaccine 78842846 Z23 Mild memor y disturbance 244035030 R41.3 reported - follow-up in 1 month for further testing Chronic back pain 720911 002 M54.12 seen by pain management ; epidural helping Long-term current use of opiate analgesic drug 8760858294 01446 Z79.891 seen by pain management ; weaning off patch [id number] MaryAPRIL SalgueroP [facility] and [address] [place] [address] 02/11/2018 16:01:06 02/11/2018 21:36:59 Overweight 101978452 Z68.27 food diary- DASH diet - silver sneakers for exercise Degenerati on of lumbar intervertebral disc 06044279 M51.[address] Torrez for epidural injections Chronic pain syndrome 37 0899821 G89.4 seen by pain management Cigarette smoker 9988913 7 F17.210 Discuss triggers - Intermitte nt palpitations 302323067 R00.[address] referral Benign ess ential hypertension 6501643 I10 Lisinopril to 40 mg daily + add HCTZ ; monitor BP - ideally < 140/90 Malaise and fatigue 2717 45249 R53.83 recheck labs History of hepatitis C 9792124734 9101 Z86.19 virus cleared Screening for malignant neoplasm of colon 990267303 Z12.11 [id number] Poonam Quinn MD [facility] [address] [place] [address] 06/06/2018 16:55:47 06/10/2018 16:39:57 [id number] Poonam Quinn MD [facility] [address] ,[address] [place] [address] 06/19/2018 09:21:20 06/19/2018 10:16:[id number] [facility] and [address] [place] [address] 09/02/2018 16:58:51 09/03/2018 09:16:52 Obesity 731210131 E66.9 Z68.31 discuss weight gain;Diet: 1800 Calories Low Glycemic Index DietExerci se: Work up to 30 min 5x/week as tolerated Depression screening 171 367775 Z13.89 see PQH-9 result in body of chart Screening Negative Benign ess ential hypertension 8959914 I10 BP elevated today - increased pain and off metoprolol - Lisinopril to 40 mg daily + resume metoprolol - monitor BP - ideally < 140/90 Cigarette smoker 3307396 7 F17.210 Discuss triggers - decreasing smoking - hoping to quit Long-term current use of opiate analgesic drug 5677209813 65647 Z79.891 seen by pain management ; Chronic pain syndrome 37 0286216 G89.4 OK to resume Topamax seen by pain management Degenerati on of lumbar intervertebral disc 40712823 M51.36 epidural injections done - pain management seen Screening for malignant neoplasm of colon 118451655 Z12.11 Osteopenia 206823185 M85 .80 check labs Blood gluc ose outside reference range 769299956 R73.09 check labs Gastroesop hageal reflux disease 880300706 K21.9 stable Mammography abnormal 168 861452 R92.8 [id number] Mary Bolivar, [facility] and [address] [facility] [address] [place] [address] 11/12/2018 15:01:58 11/12/2018 18:51:23 Benign essential hypertension 2181303 I10 BP elevated today Lisinopril 40 mg daily + metoprolol 50 mg - monitor BP - ideally < 140/90 Obesity 711510752 Z68.31 Diet: 1800 Calories Low Glycemic Index Diet Exercise: Work up to 30 min 5x/week as tolerated Asthma 880470749 J45.90 9 aerosol Inhaler prn wheeze Chronic pain syndrome 37 8819952 G89.4 increase Topamax 100 mg BID - seen by pain management Long-term current use of opiate analgesic drug 2520001709 65786 Z79.891 seen by pain management ; Cigarette smoker 5859657 7 F17.210 Discuss triggers - decreasing smoking - hoping to quit Degenerati on of lumbosacral intervertebral disc 67274846 M51.37 seen by pain management - needs transfer to [place] - Pain management tomorrow Spinal jefe nosis in cervical region 98206446 M48.02 per MRI done at pain [facility] Lumbar post-laminectomy syndrome 671455521 M96.1 Pain management follow-up [id number] [facility] and [address] [place] [address] 11/29/2021 17:04:20 11/30/2021 06:58:32 Acute injury of kidney 2033581564 1362787 N17.9 recheck labs - good fluid intake - recheck labs today Rhabdomyolysis 835244015 M62.82 good fluid intake Benign ess ential hypertension 1023652 I10 amlodipine 5 mg daily in hospital but was on Metoprolol and lisinopril in [place] Acute non- ST segment elevation myocardial infarction 551196261 I21.4 ASA daily Chronic pain syndrome 37 0519593 G89.4 Topamax 50 mg BID - referral to pain management - asking about RX for pain meds but instructed that needs to get from pain management Ex-cigarette smoker 2810 05900 Z87.891 Just quit - stay off smoking Body mass index 20-24 - normal 761466043 Z68.[id number] [facility] and [address] [place] [address] 12/15/2021 12:22:05 12/16/2021 08:34:45 Tendinitis of right shoulder 1555127525 045367 M75.91 PT referral submitted Chronic pain syndrome 37 5543182 G89.4 Duloxetine daily - Topamax 50 mg BID - has referral to pain management Asthma 068866432 J45.90 9 Inhaler prn wheeze- ok to resume Kulwinder black Ex-cigarette smoker 2810 44656 Z87.891 Just quit - stay off smoking Infection of skin 940926 000 L08.9 keep clean with soap and water and keep dry - OK for Mupirocin to edge of left foot abrasion Acute non- ST segment elevation myocardial infarction 550232449 I21.4 ASA daily -metoprolo l - low dose lisinopril - cardiology referral discussed Benign ess ential hypertension 9060110 I10 amlodipine with Metoprolol and lisinopril Depression screening 171 692527 Z13.31 see [facility]-9 result in body of chart Screening Negative [id number] MD [facility] [place] [address] [place] [address] 01/11/2022 16:24:26 01/11/2022 17:30:02 Acute non-ST segment elevation myocardial infarction 960557414 I21.4 He has been diagnosed with a [...] left foot pain Benign ess ential hypertension 2965918 I10 Blood pressure is controlled on current treatment she is on lisinopril 10 mg and Toprol 25 mg Blood gluc ose outside reference range 436465102 R73.09 [id number] MD [facility] - [employer] [address] [place] [address] 02/21/2022 10:08:23 02/21/2022 14:16:00 Acute non-ST segment elevation myocardial infarction 753421663 I21.4 He has been diagnosed with a [...] treadmill because of her left foot pain [id number] Mary Bolivar, [facility] and [address] [place] [address] 03/06/2022 17:54:38 03/07/2022 23:28:20 Normal weight 08096795 Z68.23 Liver func tion tests outside reference range 291244592 R94.5 denies alcohol use - discuss possible causes Chronic pain syndrome 37 6240667 G89.4 Duloxetine daily - Topamax 50 mg BID - pain management seen Degenerati on of lumbar intervertebral disc 82838030 M51.36 OK for steroid pack - epidural injections tried - pain management seen Lumbar post-laminectomy syndrome 220296988 M96.1 OK for scooter - Pain management follow-up Mixed anxi ety and depressive disorder 948277467 F41.8 psych referral - discuss counseling Cigarette smoker 6078126 7 F17.210 Discuss triggers - try to decrease smoking Benign ess ential hypertension 0824550 I10 lisinopril 10 mg daily Depression screening 171 693313 Z13.31 see PQH-9 result in body of chart Screening Positive: Overall Plan discussed with Pt [id number] Mary Boliavr, [facility] and [address] [place] [address] 05/11/2022 15:06:18 05/12/2022 06:02:02 Depression screening 119832046 Z13.31 see PQH-9 result in body of chart Screening Negative Cigarette smoker 4655938 7 F17.210 Discuss triggers - try to decrease smoking Degenerati on of lumbar intervertebral disc 08231997 M51.36 epidural injections tried - pain management seen - care coordinato r referral Long-term current use of opiate analgesic drug 7024050472 47156 Z79.891 seen by pain management ; Spinal jefe nosis in cervical region 57450630 M48.02 per MRI done at pain management Basal cell carcinoma of skin 318784252 C44.91 DERM referral Lumbago with sciatica 20 2055968 M54.42 OK for steroid injection today to help with inflammati on Lack of ac cess to transportation 553583188 Z59.82 OK for transport assistance Health Concerns Section Related Observation LastModified by Organization Detai ls LastModified Time None Recorded Concern Status LastModified by Organization Details LastModified Time None Recorded Advance Directives Directive N: Payers Insurance Date Sequence Insurance Name Policy Number Policy Crawley Covered Member ID Crawley Member ID Guarantor Name 08/18/2022 2 [facility] [place] (MED[place]AC[place] - [place]MO) Sangita Umana [id number] Sangita Umana 08/08/2022 1 [facility] (MEDICARE REPLACEMENT/A DVANTAGE - HMO) Sangita Umana [id number] Sangita Umana 08/18/2022 1 [facility] - DUAL [place]IGIBLE (MEDICARE REPLACEMENT/A DVANTAGE - HMO) [facility] Sangita Umana [id number] Sangita Umana 08/08/2022 1 [place] Sangita Umana [id number] Sangita Umana 08/08/2022 1 [facility] - MEDICARE SOLUTIONS - [place] - MEDICARE COMPLETE (MEDICARE REPLACEMENT HMO) [id number] Sangita Umana [id number] Sangita Umana 08/08/2022 1 [facility] (MEDICAID HMO) Sangita Umana [id number] Sangita Umana 08/08/2022 1 [facility] (MEDICARE REPLACEMENT HMO) Sangita Umana [id number] Sangita Umana 08/08/2022 1 [facility] [place] (MEDICARE - MEDICAID REPLACEMENT HMO) Sangita Umana [id number] Sangita Umana 08/08/2022 3 [facility] - [place]IG[place] (MEDICARE REPLACEMENT/A DVANTAGE - HMO) Sangita Umana [id number] Sangita Umana 08/08/2022 1 [facility] - DUAL COMPLETE - DUAL ELIGIBLE - [place] (MEDICARE-MED ICAID REPLACEMENT HMO) Sangita Umana [id number] Sangita Umana 08/08/2022 2 [facility] (MEDICAID HMO) Sangita Umana [id number] Sangita Grace Dong 08/08/2022 1 [facility]-[place] - DUAL ELIGIBLE (MEDICARE REPLACEMENT/A DVANTAGE - HMO) [facility] Sangita Grace Dong [id number] Sangita Umana Notes Date Note Type Note [...] muscle relaxer helpingLabs done today ASHTYN Dyer [address], [place], [address], [facility] 12/15/2021 15:34:55 01/11/2022 text/html This is a [...] [place] [address], [place], [address], [facility] 01/11/2022 17:02:02 03/06/2022 text/html review labs - wa s not fastingless dessert and more natural foodsno alcohol - in AAhair thinningseen by pain specialist - epidural scheduled - steroid pack tried - sharp stabbing pain on lumbar back - pinching painhaving issues with transportation Mary Bolivar, [employer] [address], [place], [address], [facility] 03/06/2022 21:27:33 05/11/2022 text/html [facility] - HTNReport ed bypatient.Type:essenti al Duration or [...] checked - back mole getting larger Mary Bolivar, [employer] [address], [place], [address], [facility] 05/11/2022 20:05:50 OBGyn Episode No OBEpisode recorded.
--- OUTSIDE RECORDS SUMMARY | 2024-09-08 14:21 | XMS_ITS | Clinical Summary ---
Author Organization [facility] Address [address] [place] [address] Care Team Providers Care Financial Internship Name Role Phone Zainab Kaiser Primary Care Provider [phone] Source Comments PLEASE NOTE, if this patient [...] Primary hypertension 11/09/2023 Chronic obstructive pulmonary disease ([facility]) 11/09/2023 Chronic bilateral back pain 11/09/2023 Major depressive disorder 11/09/2023 Stage 3 chronic kidney disease ([facility]) 024 ISSAC (generalized anxiety disorder) 11/09/2023 Osteoarthritis of hip 11/09/2023 DDD (degenerative disc disease), cervical 2023 Cervical stenosis of spine 11/09/2023 Immunizations Immunization Administration Dates Next Due PNEUMOCOCCAL [...] Description 09/18/2024 1:40 PM EDT Office Visit [facility] [address] [place] [id number] Zainab Kaiser PA [address] [place] [address] Health Maintenance Due Date Last Done Comments Hepatitis C Screening 1957 Lipid Screening 1957 Tobacco Cessation Counseling (#1) 1955 Medicare Annual Wellness Visit 1975 Breast Cancer Screening (Mammogram) 1997 CT Colonography 2002 Colonoscopy 2002 Colorectal Cancer Screening 2002 FIT/gFOBT 2002 Fecal DNA 2002 Flexible Sigmoidoscopy 2002 Imm-Zoster, Recombinant (1 o f 2) 2007 Bone Density Screening 2022 Ebd-EEGAQ-86 (2 - season) 2023 01/17/2021 Imm-Influenza (#1) [...] whether stage 3a or 3b CKD ([facility]) from Last 3 Months or Most Recently Relevant to Health Maintenance Results * REFERRAL TO ORTHOPEDICS (06/11/2024 3:00 AM EST) 06/11/2024 3:00 AM EST Zainab JAMES REFERRAL Final Result * (ABNORMAL) COMPREHENSIVE METABOLIC PANEL (11/22/2023 4:09 PM EDT) GLUCOSE 82 65 - 99 mg/dL [facility] Comment: ?Fasting reference interval UREA NITROGEN (BUN) 27(H) 7 - 25 mg/dL [facility] CREATININE (blood) 1.57(H) 0.50 - 1.05 mg/dL [facility] EGFR 36(L) > OR = 60 mL/min/1. 73m2 [facility] BUN/CREATININE RATIO 17 6 - 22 (calc) [facility] SODIUM 138 135 - 146 mmol/L [facility] POTASSIUM 4.2 3.5 - 5.3 mmol/L [facility] CHLORIDE 102 98 - 110 mmol/L [facility] CARBON DIOXIDE 28 20 - 32 mmol/L [facility] CALCIUM 10.1 8.6 - 10.4 mg/dL [facility] PROTEIN, TOTAL 7.4 6.1 - 8.1 g/dL [facility] ALBUMIN 4.9 3.6 - 5.1 g/dL [facility] GLOBULIN 2.5 1.9 - 3.7 g/dL (calc) [facility] ALBUMIN/GLOBULI N RATIO 2.0 1.0 - 2.5 (calc) [facility] BILIRUBIN, TOTAL 0.7 0.2 - 1.2 mg/dL [facility] ALKALINE PHOSPHATASE 57 37 - 153 U/L [facility] AST 23 10 - 35 U/L [facility] ALT 18 6 - 29 U/L [facility] Blood Blood / Unknown 11/22/2023 4 :09 PM EDT 11/22/2023 4:09 PM EDT Narrative [facility] - 11/23/2023 10:52 AM EDT SPLIT 11/22/2023 FROM [id number] us Zainab JAMES LAB - BLOOD DRAW Final Result [facility] [address] [address], [facility] [address] [address] from Last 3 Months or Most Recently Relevant to Health Maintenance Insurance [facility] MEDICARE COMPLETE OR MEDICAID Care Teams Financial Internship Relationship Specialty Start Date End Date Zainab Kaiser PA [address] [place] [id number] PCP - General Primary Care 09/14/23
== END 2024-09-08 15:19 | disposition home or self-care (01) ==
LOC: HO.HKA 14:04
PROVIDERS: PCP Nurse Practitioner Family; Visit Provider Internal Medicine Hypertension Specialist
DX: N18.32 Chronic kidney disease, stage 3b (principal)
CPT/HCPCS: 99213

== ENCOUNTER → 2024-09-08 14:03 | Outpatient (BNVA) | payer OTHER, SELFPAY | PROVIDERS: PCP Nurse Practitioner Family; Visit Provider Internal Medicine Hypertension Specialist ==

== ENCOUNTER 2024-09-11 12:39 | Outpatient (REF) | payer OTHER, SELFPAY ==
--- NOTE | ~2024-09-11 | MR_ITS ---
EXAMINATION: MR CERVICAL SPINE WITHOUT CONTRAST CLINICAL INFORMATION: Cervical disc disorder, unspecified, unspecified cervical region. Patient complaining of right shoulder and neck pain, with upper extremity sensory disturbance and weakness. COMPARISON: None TECHNIQUE: Multiplanar multisequence MR imaging of the cervical spine was done prior to and without the administration IV gadolinium. Examination was performed on a 1.5 Colleen Siemens unit, using standard sequences. FINDINGS: CORONAL ALIGNMENT: -There is a mild levoconvex scoliosis. SAGITTAL ALIGNMENT: -Straightening of the normal lordosis with a minimal reversal centered at C5. -There is a 3 mm degenerative anterolisthesis of C4 on C5, 3 mm degenerative retrolisthesis of C5 on C6 and C6 on C7. -2 mm degenerative anterolisthesis of C7 on T1. CRANIOCERVICAL JUNCTION/C1-2 ARTICULATIONS: -Intact and aligned. VERTEBRAL BODIES/BONE MARROW: -There are mild edematous type endplate changes present at C4-5 and C5-6. Edematous endplate changes also noted at T1-T2. -There are no compression deformities or abnormal infiltrating bone marrow signal. DISCS: -Severe loss of disc height and signal spanning C4-C7. -Moderate loss at C3-4, and T1-T2 as well as T2-T3. CERVICAL CORD: -There is cord impingement, deformity, and increased signal at C5-6. Please see below for details. -There are no additional levels of definite cord impingement. -There is no cord expansion or additional signal abnormality. PARAVERTEBRAL SOFT TISSUES: -There is no paraspinous or paravertebral soft tissue edema. -The thyroid is obscured by a saturation band. VISUALIZED INTRACRANIAL STRUCTURES: -Within normal limits. Normal flow voids within the vertebral arteries. AXIAL DISC SPACE IMAGING: C2-C3: Mild bilateral facet hypertrophy present. No central canal or neural foraminal narrowing. C3-C4: Shallow disc osteophytic ridge complex present, contiguous with bilateral uncinate spurring left greater than right. This indents upon the ventral thecal sac, but does not contact the cord. Moderate greater than left hypertrophic degenerative facet changes present, with a combination of findings resulting in mild to moderate central canal stenosis, mild bilateral lateral recess stenosis, and severe left greater than right neural foraminal stenosis. C4-C5: There is an irregular disc osteophytic ridge complex present somewhat asymmetric to the left, contiguous with prominent bilateral uncinate spurs. There is moderate bilateral facet spurring. There is mild central canal stenosis without cord impingement or signal abnormality. Mild lateral recess narrowing. There is severe bilateral neural foraminal stenosis. C5-C6: There is a diffuse disc osteophytic ridge complex, contiguous with prominent bilateral uncinate spurring. This indents upon the ventral thecal sac, contact, and impinges the cord. There is signal abnormality within the central cord at this level. AP diameter of the thecal sac has been reduced to 6 mm. There is severe bilateral lateral recess stenosis left greater than right, and coupled with moderate left greater than right facet hypertrophic arthropathy, there is moderate right and severe left neural foraminal stenosis. C6-C7: Shallow disc osteophytic ridge complex, asymmetrically prominent to the left, contiguous with bilateral uncinate spurs. This indents upon the ventral thecal sac but does not contact the cord. There is a thin sliver of CSF remaining surrounding the cord. There is mild to moderate central canal stenosis and moderate left lateral recess stenosis. Moderate hypertrophic facet changes bilaterally contribute to moderate to severe right and severe left neural foraminal stenosis. C7-T1: Shallow disc osteophytic ridge complex present, slightly asymmetric to the right, contiguous with bilateral uncinate spurs. Minimal central canal narrowing. Facet hypertrophy and uncinate spurring contribute to moderate to severe left and moderate right neural foraminal narrowing. MR/MR cervical spine wo con IMPRESSION: 1. Severe cervical spondylosis, most significant at C5-6 where there is cord impingement, flattening, and central signal abnormality. 2. Multilevel hypertrophic uncinate and facet changes contribute to multilevel severe left greater than right neural foraminal stenosis. See the body the report for details. 3. There are mild edematous type endplate changes present at C4-5, C5-6, and T1-2. Electronically signed by: Marco A Gross MD 09/11/2024 02:57 PM EDT
--- OUTSIDE RECORDS SUMMARY | 2024-09-11 13:20 | XMS_ITS | Data Portability ---
Author Organization [place] - [facility], autoContract - [facility] Address [address] [place] [address] Care Team Providers Care Regional Forester Name Role Phone REBECCA ESCALONA OTHER [phone] MARIA GARCIA OTHER Assessment No assessment recorded. [...] By Organization Details Last Modified Time 06/06/2018 [id number] deciding about using medicines to quit smoking [...] telem etry No observ ation record ed. [facility] [address], [place], [address], 06/28/2018 17:37:34 06/24/19 19 [place], echoc ardio gram No observ ation record ed. BARCODE Not Available 2018 18:52:06 Result Notes None recorded. Problems Name Problem SNOMED Code Status Onset Date Resolution Date Notes Provider Name and Address Organization Details Recorded Time Palpitati ons 99200711 Active 2017 Sena Kurt, RMA null, [facility] 8 12:57:03 Obesity 114279196 Active Sena Kurt, RMA null, [facility] 8 12:57:03 Degenerat ion of lumbar intervert ebral disc 65199943 Completed 03/14/2018 Sena Kurt, RMA null, [facility] 8 12:58:14 Visual disturban ce 45951250 Completed 201703/14/2018 Sena Kurt, RMA null, [facility] 8 12:57:44 Generaliz ed osteoarth ritis 752069980 Completed 03/14/2018 Sena Kurt, RMA null, [facility] 8 12:58:34 Intermitt ent palpitati ons 247114869 Active 2017 Sena Kurt, RMA null, [facility] 8 12:57:03 Depressiv e disorder 30150614 Active Sena Kurt, RMA null, [facility] 8 12:57:03 Chronic pain syndrome 821318417 Completed 03/14/2018 Sena Kurt, RMA null, [facility] 8 12:58:43 Mild memory disturban ce 225349942 Completed 201703/14/2018 Sena Kurt, RMA null, [facility] 8 12:58:23 Increased frequency of urination 485556477 Completed 201703/14/2018 Sena Kurt RMA null, [facility] 8 12:58:27 Carpal tunnel syndrome 55454589 Active Sena Kurt RMA null, [facility] 8 12:57:03 Long-term current use of opiate analgesic drug 652219804330 108 Active 2017 Sena Kurt, RMA null, [facility] 8 12:57:03 Asthma 666136751 Completed 03/14/2018 Sena Kurt, RMA null, [facility] 8 12:58:31 Mixed anxiety and depressiv e disorder 386906612 Completed 03/14/2018 Sena Kurt, RMA null, [facility] 8 12:58:37 Benign essential hypertens ion 5141208 Active Sena Kurt, RMA null, [facility] 8 12:57:03 Shoulder joint pain 013586701 Completed 03/14/2018 Sena Kurt, RMA null, [facility] 8 12:58:47 Cigarette smoker 53708639 Active Sena Kurt, RMA null, [facility] 8 12:57:03 Closed fracture of phalanx of foot 87697931 Completed 03/14/2018 Sena Kurt, RMA null, [facility] 8 12:57:39 Feeling nervous 907514237 Completed 03/14/2018 Sena Kurt, RMA null, [facility] 8 12:57:57 Osteopeni a 164398504 Completed 03/14/2018 Sena Kurt, RMA null, [facility] 8 12:58:01 Overweigh t 808077050 Completed 201703/14/2018 Sena Kurt, RMA null, [facility] 8 12:58:11 Degenerat ion of lumbosacr al intervert ebral disc 18782732 Completed 03/14/2018 Sena Hicks RMA null, [facility] 8 12:57:48 Gastroeso phageal reflux disease 212322757 Active Sena Hicks RMA null, [facility] 8 12:57:03 Menopausa l symptom 92137490 Completed 03/14/2018 Sena Hicks RMA null, [facility] 8 12:58:18 History of hepatitis C 292436157441 01 Completed 201703/14/2018 Sena Kurt RMA null, [facility] 8 12:57:36 Malaise and fatigue 748197819 Completed 201703/14/2018 Sena Kurt RMA null, [facility] [...] 10:05:58 Other completed Sena Hicks, ARVINDA [facility] 02/18/2018 10:06:10 Cholecystectomy w/cholang completed Sena Hicks, ARVINDA [facility] 02/18/2018 10:06:30 Tubal Ligation completed ARVIND TapiaA [facility] 02/18/2018 14:35:35 Imaging Results Imaging Date Name Status LastModified by Organization Details LastModified Time 06/06/2018 electrocardiogram completed Informa tion not available 06/06/2018 18:44:44 06/19/2018 US, echocardiogram completed BARCODE Inform ation not available 06/19/2018 10:19:56 06/19/2018 cardiac telemetry completed [employer] [address], [place], [address], 06/28/2018 17:37:34 06/24/2018 US, echocardiogram completed BARCODE [...] Updated DateTime 9 152.4 cm 27.7 kg/m2 39859.1 2 g 70 /min 98 % 98 % 122 mm[Hg] 80 mm[Hg] Yohana Song [facility] 9 17:16:31 Social History Question Answer Notes LastModified by [employer] Details LastModified Time Tobacco Smoking Status Current Every Day Smoker Sena Hicks, SUNG null, [facility] 02/18/2018 10:04:50 Do [...] Functional Status Question Answer Note LastModified by [employer] Details LastModified Time What is your level [...] Condition Response High Blood Pressure (Hypertension) Y Arthritis Y Depression Y Asthma Y Liver Disease/Hepatitis Y Gynecological HistoryNo gynecological history recorded. Obstetrics History GPAL:G 0 P 0 0 0 0 Past Encounters Encounter ID Performer Location Encounter Start Date Encounter Closed Date Diagnosis/Indication Diagnosis SNOMED-CT Code Diagnosis ICD10 Code Diagnosis Note [id number] Ashtyn Bolivar, XM1 TANK DRIVER [facility] and [address] [facility] [place] [address] 05/05/2010 18:12:34 05/05/2010 19:18:30 [id number] Zena Ramirez MD [facility] and [address] [facility] [place] [address] 05/10/2010 17:06:55 05/10/2010 18:50:11 [id number] Essence Knowles, DO [facility] and [address] [facility] [address] [place] [address] 05/31/2010 18:17:55 05/31/2010 19:23:28 [id number] Essence Knowles, DO [facility] and [address] [facility] 100 [facility] [place] [address] 10/04/2010 17:25:28 10/04/2010 18:04:57 [id number] Essence Knowles, DO [facility] and [address] [facility] 100 [facility] [place] [address] 10/26/2010 15:30:56 10/26/2010 16:47:04 [id number] Nakul Boland, DO [facility] [address] [facility] [address] 12/19/2010 19:34:25 12/19/2010 20:13:27 [id number] Essence Knowles, DO [facility] and [address] [facility] [address] [facility] [place] [address] 03/17/2011 14:44:01 03/17/2011 15:31:54 [id number] Essence Knowles, DO [facility] and [address] [facility] [place] [address] 06/01/2011 12:28:37 06/01/2011 13:54:09 [id number] Alma Jones, XM1 TANK DRIVER-C [facility] and [address] [facility] [place] [address] 07/18/2012 19:08:12 07/19/2012 13:17:25 [id number] Essence Knowles, DO [facility] and [address] [facility] [place] [address] 05/22/2013 16:22:52 05/23/2013 10:09:02 [id number] Essence Knowles, DO [facility] and [address] [facility] [place] [address] 12/15/2013 18:32:26 12/15/2013 19:40:41 [id number] Essence Knowles, DO [facility] and [address] [facility] [place] [address] 01/02/2014 10:53:17 01/02/2014 15:51:25 [id number] Essence Knowles, DO [facility] and [address] [facility] [place] [address] 03/19/2014 15:04:03 03/19/2014 15:32:34 [id number] ASHTYN Dyer [facility] and [address] [place] [place] [address] 05/10/2015 15:37:23 05/11/2015 11:24:05 [id number] Ashtyn Bolivar, XM1 TANK DRIVER [facility] and [address] [facility] [place] [address] 07/13/2015 15:34:17 07/14/2015 12:42:51 [id number] Barby Rogel MD [facility] and [address] [place] [address] 05/15/2016 17:34:06 05/15/2016 19:08:03 [id number] SAQIB Crow [facility] and [address] [place] [address] 08/18/2016 19:13:26 08/21/2016 03:16:32 [id number] [facility] and [address] [facility] [address] [facility] [address] 08/06/2017 16:20:46 08/06/2017 21:19:04 [id number] [facility] XM1 TANK DRIVER [facility] and [address] [facility] [address] [facility] [place] [address] 02/11/2018 16:01:06 02/11/2018 21:36:59 [id number] MD kirstin Monter[facility] [place] [facility] [address] [place] [address] 06/06/2018 16:55:47 06/10/2018 16:39:57 Overweight 954768689 E66.3 Diet: 1800 Calories Low Glycemic Diet Exercise: Work up to 30 min 5x/week as tolerated Electrocar diogram abnormal 306620089 R94.31 LVH Intermitte nt palpitations 863852495 R00.2 once per week last few seconds fast and regular for 4 to 5 beats for last 4- 5 yearsTSH normal Essential hypertension 62111227 I10 controlled with treatment Tobacco de pendence syndrome 86470888 F17.675 [id number] Poonam Quinn MD [facility] [place] [facility] [address] [place] [address] 06/19/2018 09:21:20 06/19/2018 10:16:22 Electrocardiogram abnormal 182454315 R94.31 LVH [id number] [facility], XM1 TANK DRIVER [facility] and [address] [facility] [address] [facility] [address] 09/02/2018 16:58:51 09/03/2018 09:16:52 [id number] Ashtyn Weiner, XM1 TANK DRIVER [facility] and [address] [place] [address] 11/12/2018 15:01:58 11/12/2018 18:51:23 [id number] Ashtyn Bolivar, XM1 TANK DRIVER [facility] and [address] [place] [address] 11/29/2021 17:04:20 11/30/2021 06:58:32 [id number] Ashtyn Weiner, XM1 TANK DRIVER [facility] and [address] [place] [address] 12/15/2021 12:22:05 12/16/2021 08:34:45 [id number] Kai Davis MD [facility] [place] [address] [place] [address] 01/11/2022 16:24:26 01/11/2022 17:30:02 [id number] Kai Davis MD [facility] [place] [address] [place] [address] 02/21/2022 10:08:23 02/21/2022 14:16:00 [id number] Ashtynalistair Bolivar, XM1 TANK DRIVER [facility] and [address] [place] [address] 03/06/2022 17:54:38 03/07/2022 23:28:20 [id number] Ashtynalistair Bolivar, XM1 TANK DRIVER [facility] and [address] [place] [address] 05/11/2022 15:06:18 05/12/2022 06:02:02 Health Concerns Section Related Observation LastModified by Organization Detai ls LastModified Time None Recorded Concern Status LastModified by Organization Details LastModified Time None Recorded Advance Directives Directive N: Payers Insurance Date Sequence Insurance Name Policy Number Policy Crawley Covered Member ID Crawley Member ID Guarantor Name 08/18/2022 2 [facility] [place] ([place] - [place]MO) Sangita Umana [id number] Sangita Umana 08/08/2022 1 [facility] (MEDICARE REPLACEMENT/A DVANTAGE - HMO) Sangita Umana [id number] Sangiat Umana 08/18/2022 1 [facility] (MEDICARE REPLACEMENT/A DVANTAGE - HMO) [facility] Sangita Umana [id number] Sangita Umana 08/08/2022 1 [place] Sangita Umana [id number] Sangita Umana 08/08/2022 1 [facility] - MEDICARE SOLUTIONS - [facility] - MEDICARE COMPLETE (MEDICARE REPLACEMENT HMO) [id number] Sangita Umana [id number] Sangita Umana 08/08/2022 1 [facility] [place] [facility] ([place]ICA[place] H[place]) Sangita Umana [id number] Sangita Umana 08/08/2022 1 [facility] [place] (MEDICARE REPLACEMENT HMO) Sangita Umana [id number] Sangita Umana 08/08/2022 1 [facility] [place] [place] ([place]ICARE - MEDICAID REPLACEMENT HMO) Sangita Umana [id number] Sangita Umana 08/08/2022 3 [facility] (MEDICARE REPLACEMENT/A DVANTAGE - HMO) Sangita Umana [id number] Sangita Umana 08/08/2022 1 [facility] - DUAL COMPLETE - DUAL ELIGIBLE - SNP (MEDICARE-MED ICAID REPLACEMENT HMO) Sangita Umana [id number] Sangita Umana 08/08/2022 2 [facility] [place] [facility] (MEDICA[place] H[place]) Sangita Umana [id number] Sangita Umana 08/08/2022 1 [facility] (MEDICARE REPLACEMENT/A DVANTAGE - HMO) [facility] Sangita Umana [id number] Sangita Umana Notes Date Note Type Note Provider Name and Address Organization Details Recorded Time 06/06/2018 text/html [facility] - Generic H PI 1Reported bypatient.Notes:aSqib nieto seen for cardiac evaluation regarding palpitations and abnormal ECG her symptoms of palpitations once per week last few seconds fast and regular for 4 to 5 beats for last few years has had no chest discomfort suggestive of ischemia. The patient denies orthopnea, PND, or edema. Patient has not had palpitations, syncope or near [place] [address], [place], [address], [facility] 06/06/2018 18:09:31 OBGyn Episode No OBEpisode recorded.
--- OUTSIDE RECORDS SUMMARY | 2024-09-11 13:20 | XMS_ITS | Data Portability ---
Author Organization [place] - [facility], autoContract - [facility] Address [address] [facility] [address] [place] [address] Assessment No assessment recorded. Plan of Treatment Reminders Order Date Submit Date Provider Last Modified By Organization Details Last Modified Time Details Appointments None recorded. Lab culture, urine 011 [employer], [address], [address], 3 04:00:47 Referral None recorded. Procedures None recorded. Surgeries None recorded. Imaging None recorded. Medication Orders Bactrim DS 800 mg-160 mg tablet 011 [facility] [id number], [address] , [place], [address], 3 04:00:47 Patient TargetsNo targets recorded. Patient InstructionsNo instructions recorded. Reason for Referral None Reported. Results Created Date Observation Date Name Description Value Unit Range Abnormal Flag Note LastModifiedBy Organization Detail LastModifiedTime 12/20/19 11 12/21/2010 cultu re, urine source urine-voided URINE- VOIDED Not Available [employer] [address], [address], 12/22/2010 03:34:08 12/20/19 11 12/21/2010 cultu re, urine culture, urine order ed test: cultu re,ur ine micro numbe r: [id number] test statu s: final speci men [...] A 1:100 0 dilut ion Not Available [employer] [address], [address], 12/22/2010 03:34:08 Result Notes None recorded. Problems Name Problem SNOMED Code Status Onset Date Resolution Date Notes Provider Name and Address Organization Details Recorded Time Dysuria 94118325 Active Not Available [facility] 01/21/2013 03:02:05 Problem Notes None recorded. Procedures Surgical History Date Name Laterality Status Provider Name and Address Organization Details Recorded Time 8 Hip Surgery completed Not Available [facility] 03/23/20 11 02:44:39 Imaging Results None [...] Details Last Updated DateTime 1 154.94 cm 20831.2 5712 g 33.3 kg/m2 98.1 [degF] 66 /min 98 % 98 % 128 mm[Hg] 81 mm[Hg] Amaya Fine (Elenita) [facility] 1 19:46:12 Social History Question Answer Notes LastModified by Organizat ion Details LastModified Time Tobacco Smoking Status Current Every Day Smoker Not Available [facility] 03/16/2011 05:14:21 What Is Your Level [...] SNOMED-CT Code Diagnosis ICD10 Code Diagnosis Note [id number] ASHTYN Dyer [facility] [address] [facility] [place] [address] [place] [address] 05/05/2010 18:12:34 05/05/2010 19:18:30 [id number] Zena Ramirez MD [facility] [address] [address] 05/10/2010 17:06:55 05/10/2010 18:50:11 [id number] Essence Knowles DO [facility] [address] [place] [address] 05/31/2010 18:17:55 05/31/2010 19:23:28 [id number] Essence Knowles DO [facility] [address] [place] [address] 10/04/2010 17:25:28 10/04/2010 18:04:57 [id number] Essence Knowles, DO [facility] [address] [facility] [place] [address] 10/26/2010 15:30:56 10/26/2010 16:47:04 [id number] Patrickprashant Krystian, DO [facility] [address] [facility] [place] [address] 12/19/2010 19:34:25 12/19/2010 20:13:27 [id number] Essence Knowles, DO [facility] [address] [facility] [place] [address] 03/17/2011 14:44:01 03/17/2011 15:31:54 [id number] Essence Knowles, DO [facility] [address] [facility] [address] 06/01/2011 12:28:37 06/01/2011 13:54:09 [id number] Alma Jones, GAS BL[employer]ER-C [facility] [address] [facility] [place] [address] 07/18/2012 19:08:12 07/19/2012 13:17:25 [id number] Essence Knowles, DO [facility] [address] [facility] [address] 05/22/2013 16:22:52 05/23/2013 10:09:02 [id number] sEsence Knowles, DO [facility] [address] [facility] [place] [address] 12/15/2013 18:32:26 12/15/2013 19:40:41 [id number] Essence Knowles DO [facility] [address] [facility] [place] [address] 01/02/2014 10:53:17 01/02/2014 15:51:25 [id number] Essence Knowles, DO [facility] [address] [facility] [address] [facility] [place] [address] 03/19/2014 15:04:03 03/19/2014 15:32:[id number] [facility], [facility] [facility] and [address] [facility] [place] [address] 05/10/2015 15:37:23 05/11/2015 11:24:[id number] [facility], [employer] [facility] and [address] [facility] [place] [address] 07/13/2015 15:34:17 07/14/2015 12:42:51 [id number] Barby Rogel MD [facility] [address] [facility] [address] [facility] [place] [address] 05/15/2016 17:34:06 05/15/2016 19:08:03 [id number] ERIKA Crow [facility] [address] [facility] [address] [address] [facility] [place] [address] 08/18/2016 19:13:26 08/21/2016 03:16:[id number] [facility], [facility] [facility] [address] [facility] [address] [address] [facility] [place] [address] 08/06/2017 16:20:46 08/06/2017 21:19:[id number] [facility], [facility] [address] [facility] [place] [address] [facility] [place] [address] 02/11/2018 16:01:06 02/11/2018 21:36:59 [id number] MD kirstin [facility] [facility] [address] [place] [address] 06/06/2018 16:55:47 06/10/2018 16:39:57 [id number] MD [facility]ret [facility] [address] [place] [address] 06/19/2018 09:21:20 06/19/2018 10:16:[id number] [facility], [facility] [address] [facility] [address] [facility] [place] [address] 09/02/2018 16:58:51 09/03/2018 09:16:[id number] [facility], [facility] [address] [facility] [address] [facility] [place] [address] 11/12/2018 15:01:58 11/12/2018 18:51:[id number] [facility], [facility] [address] [facility] [address] [facility] [place] [address] 11/29/2021 17:04:20 11/30/2021 06:58:[id number] [facility], [facility] [address] [facility] [address] [facility] [place] [address] 12/15/2021 12:22:05 12/16/2021 08:34:45 [id number] Kai Davis MD [facility] [place] [address] [place] [address] 01/11/2022 16:24:26 01/11/2022 17:30:02 [id number] Kai Davis MD [facility] [place] [address] [place] [address] 02/21/2022 10:08:23 02/21/2022 14:16:[id number] [facility], [facility] [address] [facility] [address] [facility] [place] [address] 03/06/2022 17:54:38 03/07/2022 23:28:[id number] [facility], [facility] [address] [facility] [address] [facility] [place] [address] 05/11/2022 15:06:18 05/12/2022 06:02:02 Health Concerns Section Related Observation LastModified by Organization Detai ls LastModified Time None Recorded Concern Status LastModified by Organization Details LastModified Time None Recorded Advance Directives Directive None Recorded Payers Insurance Date Sequence Insurance Name Policy Number Policy Crawley Covered Member ID Crawley Member ID Guarantor Name 08/18/2022 2 [facility] - [place]MO) Sangita Umana [id number] Sangita Umana 08/08/2022 1 [facility] (MEDICARE REPLACEMENT/A DVANTAGE - HMO) Sangita Umana [id number] Sangita Umana 08/18/2022 1 [facility] (MEDICARE REPLACEMENT/A DVANTAGE - HMO) [place] Sangita Umana [id number] Sangita Umana 08/08/2022 1 [place] Sangita Umana [id number] Sangita Umana 08/08/2022 1 [employer] - MEDICARE SOLUTIONS - [employer] - MEDICARE COMPLETE (MEDICARE REPLACEMENT HMO) [id number] Sangita Umana [id number] Sangita Umana 08/08/2022 1 [facility] [place] [facility] (MEDICAID HMO) Sangita Umana [id number] Sangita Umana 08/08/2022 1 [employer] [place] (MEDICARE REPLACEMENT HMO) Sangita Umana [id number] Sangita Umana 08/08/2022 1 [facility] [place] (MEDICARE - MEDICAID REPLACEMENT HMO) Sangita Umana [id number] Sangita Umana 08/08/[address] [facility] (MEDICARE REPLACEMENT/A DVANTAGE - HMO) Sangita Umana [id number] Sangita Umana 08/08/2022 1 [facility] - DUAL COMPLETE - DUAL ELIGIBLE - SNP (MEDICARE-MED ICAID REPLACEMENT HMO) Sangita Umana [id number] Sangita Umana 08/08/2022 2 [facility] [place] [facility] (MEDICAID HMO) Sangita Umana [id number] Sangita Umana 08/08/2022 1 [facility] (MEDICARE REPLACEMENT/A DVANTAGE - HMO) FRANCA Umana [id number] Sangita Umana OBGyn Episode No OBEpisode recorded.
--- OUTSIDE RECORDS SUMMARY | 2024-09-11 13:21 | XMS_ITS | Data Portability ---
[facility] Organization [facility] Address [address] [place] [address] Care Team Providers Care Professional Fighter Name Role Phone MARIA GARCIA OTHER MARY BOLIVAR Primary Care Provider [phone] Assessment No assessment recorded. Plan of Treatment Reminders Order Date Submit Date Provider Last Modified By Organization Details Last Modified Time Details Appointments None recorded. Lab None recorded. Referral dermatologi st referral 2022 023 [email or web address] [facility], [address] [facility], [address], [place], [address], 3 15:06:17 cardiologis t referral 2021 022 [facility], [address], [address], [place], [address], 3 14:31:58 physical therapist referral 2021 022 [facility], [address], [address], [place], [address], 2 10:21:30 Procedures lexiscan cardiolite stress test (PROC) 2021 022 [email or web address] 1 Not available 14:14:52 Surgeries None recorded. Imaging None recorded. Medication Orders Kenalog 40 mg/mL suspension for injection 2022 023 [id number], [address], [place], [place], [id number], 3 16:17:39 methylpredn isolone 4 mg tablets in a dose pack 2021 [facility][id number], [address], [place], [place], [id number], 18:42:42 Lexiscan 0.4 mg/5 mL intravenous syringe 2021 [email or web address] 1 [facility] #80923, [address], [place], [place], [id number], 10:37:35 mupirocin 2 % topical ointment 2021 [facility] #75969, [address], [place], [place], [id number], 13:03:36 montelukast 10 mg tablet 2021 [facility] #60585, [address], [place], [place], [id number], 13:03:37 ProAir HFA 90 mcg/actuati on aerosol inhaler 2021 [facility] #52907, [address], [place], [place], [id number], 2 13:03:37 duloxetine 60 mg capsule,del ayed release 2021 [facility] #16385, [address], [place], [place], [id number], 2 13:03:38 metoprolol succinate ER 25 mg tablet,exte nded release 24 hr 2021 022 [facility][id number], [address] [facility], [place], [place], [id number], 13:03:37 Patient TargetsNo targets recorded. Patient Instructions Encounter Date Encounter Id Patient Instructions Last Modified By Organization Details Last Modified Time 03/06/2022 [id number] depression treatment: care instructions [email or web address] Not available 03/06/2022 21:24:17 05/11/2022 [id number] depression treatment: care instructions [email or web address] Not available 05/11/2022 20:01:49 coordination of care* - no car - needs assistance for transport for epidural injection - grocery assistance [email or web address] Not available 05/23/2022 18:16:41 Reason for Referral Physical Therapist Referral for Tendinitis of right shoulder Referring Physician: Mary Martell [facility], Encounter Date: 12/15/2021 Paving Rammer Referral for Ac jaci non-ST segment elevation myocardial infarction Referring Physician: Mary Martell [facility], Encounter Date: 12/15/2021 Dispute Resolution Specialist Referral for B nehemiah cell carcinoma of skin Referring Physician: Mary Martell [facility], Encounter Date: 05/11/2022 Results Created Date Observation Date Name Description Value Unit Range Abnormal Flag Note LastModifiedBy Organization Detail LastModifiedTime 12/16/1912/15/2021 COMPL ETE BLOOD COUNT WITH AUTO DIFF white blood cell 8.1 K/uL 4.4-10 .8 Not Available [facility] [place] [address] [place], [address], 12/15/2021 23:05:23 12/16/19 22 12/15/2021 COMPL ETE BLOOD COUNT WITH AUTO DIFF red blood cell 3.99 M/uL 4.02-5 .18 low Not Available [facility] [place] [address] [place], [address], 12/15/2021 23:05:23 12/16/19 22 12/15/2021 COMPL ETE BLOOD COUNT WITH AUTO DIFF hemoglobin 13.1 g/dL 11.5-1 5.5 Not Available [facility] [place] [address], [place], [address], 12/15/2021 23:05:23 12/16/19 22 12/15/2021 COMPL ETE BLOOD COUNT WITH AUTO DIFF hematocrit 39.5 % 36.0-4 8.0 Not Available [facility] [place] [address], [place], [address], 12/15/2021 23:05:23 12/16/19 22 12/15/2021 COMPL ETE BLOOD COUNT WITH AUTO DIFF mean corpuscular volume 99.0 fL 80.0-9 7.0 high Not Available [facility] [place] [address], [place], [address], 12/15/2021 23:05:23 12/16/19 22 12/15/2021 COMPL ETE BLOOD COUNT WITH AUTO DIFF mean corpuscular hemoglobin 32.8 pg 25.8-3 2.9 Not Available [facility] [place] [address], [place], [address], 12/15/2021 23:05:23 12/16/19 22 12/15/2021 COMPL ETE BLOOD COUNT WITH AUTO DIFF mean corpuscular hemoglobin concentratio n 33.2 g/dL 31.0-3 5.0 Not Available [facility] [place] [address], [place], [address], 12/15/2021 23:05:23 12/16/19 22 12/15/2021 COMPL ETE BLOOD COUNT WITH AUTO DIFF red cell distribution width 14.2 % 11.1-1 5.1 Not Available [facility] [place] [address], [place], [address], 12/15/2021 23:05:23 12/16/19 22 12/15/2021 COMPL ETE BLOOD COUNT WITH AUTO DIFF platelets 258 K/uL 140-40 0 Not Available [facility] [place] [address] [facility], [place], [address], 12/15/2021 23:05:23 12/16/19 22 12/15/2021 COMPL ETE BLOOD COUNT WITH AUTO DIFF mean platelet volume 10.3 fL 7.5-14 .0 Not Available [facility] [place] [address] [facility], [place], [address], 12/15/2021 23:05:23 12/16/19 22 12/15/2021 COMPL ETE BLOOD COUNT WITH AUTO DIFF neutrophil, percentage 67.8 % 38.8-7 6.4 Not Available [facility] [place] [address] [facility], [place], [address], 12/15/2021 23:05:23 12/16/19 22 12/15/2021 COMPL ETE BLOOD COUNT WITH AUTO DIFF lymphocyte, percentage 24.1 % 17.8-4 6.6 Not Available [facility] [place] [address], [place], [address], 12/15/2021 23:05:23 12/16/19 22 12/15/2021 COMPL ETE BLOOD COUNT WITH AUTO DIFF monocyte, percentage 4.8 % 3.0-11 .0 Not Available [facility] [place] [address], [place], [address], 12/15/2021 23:05:23 12/16/19 22 12/15/2021 COMPL ETE BLOOD COUNT WITH AUTO DIFF eosinophil, percentage 2.0 % 0.0-6. 0 Not Available [facility] [place] [address] [facility], [place], [address], 12/15/2021 23:05:23 12/16/19 22 12/15/2021 COMPL ETE BLOOD COUNT WITH AUTO DIFF basophil, percentage 0.9 % 0.0-2. 0 Not Available [facility] [place] [address] [facility], [place], [address], 12/15/2021 23:05:23 12/16/19 22 12/15/2021 COMPL ETE BLOOD COUNT WITH AUTO DIFF neutrophil, absolute 5.5 K/uL 1.9-7. 9 Not Available [facility] [place] [address] [facility], [place], [address], 12/15/2021 23:05:23 12/16/19 22 12/15/2021 COMPL ETE BLOOD COUNT WITH AUTO DIFF lymphocyte, absolute 2.0 K/uL 1.0-4. 9 Not Available [facility] [place] [address] [facility], [place], [address], 12/15/2021 23:05:23 12/16/19 22 12/15/2021 COMPL ETE BLOOD COUNT WITH AUTO DIFF monocyte, absolute 0.4 K/uL 0.1-1. 2 Not Available [facility] [place] [address] [place], [address], 12/15/2021 23:05:23 12/16/19 22 12/15/2021 COMPL ETE BLOOD COUNT WITH AUTO DIFF eosinophil, absolute 0.2 K/uL 0.0-0. 7 Not Available [facility] [place] [address] [place], [address], 12/15/2021 23:05:23 12/16/19 22 12/15/2021 COMPL ETE BLOOD COUNT WITH AUTO DIFF basophil, absolute 0.1 K/uL 0.0-0. 2 Not Available [facility] [place] [address] [place], [address], 12/15/2021 23:05:23 12/16/19 22 12/15/2021 COMPL ETE BLOOD COUNT WITH AUTO DIFF immature granulocytes % 0.4 % 0.0-3. 0 Not Available [facility] [place] [address] [place], [address], 12/15/2021 23:05:23 12/16/19 22 12/15/2021 COMPL ETE BLOOD COUNT WITH AUTO DIFF immature granulocytes # 0.0 K/uL 0.0-0. 3 Not Available [facility] [place] [address] [place], [address], 12/15/2021 23:05:23 12/16/19 22 12/15/2021 COMPL ETE BLOOD COUNT WITH AUTO DIFF nucleated red blood cell % 0.0 % 0.0-0. 0 Not Available [facility] [place] [address] [place], [address], 12/15/2021 23:05:23 12/16/19 22 12/15/2021 COMPL ETE BLOOD COUNT WITH AUTO DIFF nucleated red blood cell # 0.0 K/uL 0.0-0. 0 Not Available [facility] [place] [address] [place], [address], 12/15/2021 23:05:23 12/16/19 22 12/15/2021 CREAT INE KINAS E creatine kinase 78 U/L 25-160 Not Available [facility] [place] [address] [place], [address], 12/15/2021 23:05:24 12/16/19 22 12/15/2021 COMPR EHENS ANDRIY METAB OLIC PANEL W/EGF R (14) glucose, random 152 mg/dL 70-100 high Not Available [facility] [place] [address], [place], [address], 12/15/2021 23:05:24 12/16/19 22 12/15/2021 COMPR EHENS ANDRIY METAB OLIC PANEL W/EGF R (14) BUN 34 mg/dL 8-25 high Not Available [facility] [place] [address], [place], [address], 12/15/2021 23:05:24 12/16/19 22 12/15/2021 COMPR EHENS ANDRIY METAB OLIC PANEL W/EGF R (14) creatinine 1.1 mg/dL 0.6-1. 4 For patie nts >49 years of age, the refer ence limit for Creat inine is appro ximat tessa 13% highe r for peopl e ident ified as Afric an-Am lorraine n. Not Available [facility] [place] [address], [place], [address], 12/15/2021 23:05:24 12/16/19 22 12/15/2021 COMPR EHENS [...] on CKD. Not Available [facility] [place] [address], [place], [address], 12/15/2021 23:05:24 12/16/19 22 12/15/2021 COMPR EHENS [...] on CKD. Not Available [facility] [place] [address] [place], [address], 12/15/2021 23:05:24 12/16/19 22 12/15/2021 COMPR EHENS ANDRIY METAB OLIC PANEL W/EGF R (14) BUN/creat ratio 31 ratio 10-28 high Not Available [facility] [place] [address] [place], [address], 12/15/2021 23:05:24 12/16/19 22 12/15/2021 COMPR EHENS ANDRIY METAB OLIC PANEL W/EGF R (14) bilirubin, total 0.4 mg/dL 0.2-1. 3 Not Available [facility] [place] [address] [place], [address], 12/15/2021 23:05:24 12/16/19 22 12/15/2021 COMPR EHENS ANDRIY METAB OLIC PANEL W/EGF R (14) AST (SGOT) 53 U/L 14-36 high Not Available [facility] [place] [address] [place], [address], 12/15/2021 23:05:24 12/16/19 22 12/15/2021 COMPR EHENS ANDRIY METAB OLIC PANEL W/EGF R (14) ALT (SGPT) 83 U/L 7-41 high Not Available [facility] [place] [address] [place], [address], 12/15/2021 23:05:24 12/16/19 22 12/15/2021 COMPR EHENS ANDRIY METAB OLIC PANEL W/EGF R (14) alkaline phosphatase 66 U/L 40-135 Not Available [facility] [place] [address] [place], [address], 12/15/2021 23:05:24 12/16/19 22 12/15/2021 COMPR EHENS ANDRIY METAB OLIC PANEL W/EGF R (14) calcium 9.1 mg/dL 8.4-10 .2 Not Available [facility] [place] [address] [place], [address], 12/15/2021 23:05:24 12/16/19 22 12/15/2021 COMPR EHENS ANDRIY METAB OLIC PANEL W/EGF R (14) sodium 137 mmol/ L 134-14 4 Not Available [facility] [place] [address] [place], [address], 12/15/2021 23:05:24 12/16/19 22 12/15/2021 COMPR EHENS ANDRIY METAB OLIC PANEL W/EGF R (14) potassium 4.2 mmol/ L 3.5-5. 2 Not Available [facility] [place] [address] [place], [address], 12/15/2021 23:05:24 12/16/19 22 12/15/2021 COMPR EHENS ANDRIY METAB OLIC PANEL W/EGF R (14) chloride 105 mmol/ L 96-110 Not Available [facility] [place] [address] [place], [address], 12/15/2021 23:05:24 12/16/19 22 12/15/2021 COMPR EHENS ANDRIY METAB OLIC PANEL W/EGF R (14) CO2 23 mmol/ L 22-30 Not Available [facility] [place] [address] [place], [address], 12/15/2021 23:05:24 12/16/19 22 12/15/2021 COMPR EHENS ANDRIY METAB OLIC PANEL W/EGF R (14) total protein 6.9 g/dL 6.3-8. 2 Not Available [facility] [place] [address] [place], [address], 12/15/2021 23:05:24 12/16/19 22 12/15/2021 COMPR EHENS ANDRIY METAB OLIC PANEL W/EGF R (14) albumin 4.4 g/dL 3.5-5. 0 Not Available [facility] [place] [address] [place], [address], 12/15/2021 23:05:24 12/16/19 22 12/15/2021 COMPR EHENS ANDRIY METAB OLIC PANEL W/EGF R (14) globulin 2.5 g/dL 2.0-3. 7 Not Available [facility] [place] [address] [place], [address], 12/15/2021 23:05:24 12/16/19 22 12/15/2021 COMPR EHENS ANDRIY METAB OLIC PANEL W/EGF R (14) albumin/glob ulin 1.8 ratio 1.0-2. 4 Not Available [facility] [place] [address] [place], [address], 12/15/2021 23:05:24 12/16/19 22 12/15/2021 COMPR EHENS ANDRIY METAB OLIC PANEL W/EGF R (14) anion gap 8 ratio 4-18 Not Available [facility] [place] [address] [place], [address], 12/15/2021 23:05:24 12/16/19 22 12/15/2021 TSH RFLX TO FREE T4 TSH 1.08 mIU/L 0.45-4 .50 Not Available [facility] [place] [address], [place], [address], 12/15/2021 23:05:25 12/16/19 22 12/15/2021 URINA LYSIS WITH MICRO SCOPI C REFLX CULTU RE urine color LIGHT- YELLOW yellow abnormal Not Available [facility] [place] [address] [facility], [place], [address], 12/15/2021 23:05:26 12/16/19 22 12/15/2021 URINA LYSIS WITH MICRO SCOPI C REFLX CULTU RE urine clarity CLEAR clear Not Available [facility] [place] [address], [place], [address], 12/15/2021 23:05:26 12/16/19 22 12/15/2021 URINA LYSIS WITH MICRO SCOPI C REFLX CULTU RE urine glucose NEGATI VE negati ve Not Available [facility] [place] [address], [place], [address], 12/15/2021 23:05:26 12/16/19 22 12/15/2021 URINA LYSIS WITH MICRO SCOPI C REFLX CULTU RE urine ketones NEGATI VE negati ve Not Available [facility] [place] [address], [place], [address], 12/15/2021 23:05:26 12/16/19 22 12/15/2021 URINA LYSIS WITH MICRO SCOPI C REFLX CULTU RE urine bilirubin NEGATI VE negati ve Not Available [facility] [place] [address], [place], [address], 12/15/2021 23:05:26 12/16/19 22 12/15/2021 URINA LYSIS WITH MICRO SCOPI C REFLX CULTU RE urine specific gravity 1.011 1.005- 1.030 Not Available [facility] [place] [address], [place], [address], 12/15/2021 23:05:26 12/16/19 22 12/15/2021 URINA LYSIS WITH MICRO SCOPI C REFLX CULTU RE urine pH 5.5 5.0-7. 0 Not Available [facility] [place] [address], [place], [address], 12/15/2021 23:05:26 12/16/19 22 12/15/2021 URINA LYSIS WITH MICRO SCOPI C REFLX CULTU RE urine hemoglobin TRACE negati ve abnormal Not Available [facility] [place] [address], [place], [address], 12/15/2021 23:05:26 12/16/19 22 12/15/2021 URINA LYSIS WITH MICRO SCOPI C REFLX CULTU RE urine protein NEGATI VE negati ve Not Available [facility] [place] [address], [place], [address], 12/15/2021 23:05:26 12/16/19 22 12/15/2021 URINA LYSIS WITH MICRO SCOPI C REFLX CULTU RE urine urobilinogen NORMAL mg/dL normal Not Available [facility] [place] [address], [place], [address], 12/15/2021 23:05:26 12/16/19 22 12/15/2021 URINA LYSIS WITH MICRO SCOPI C REFLX CULTU RE urine nitrate NEGATI VE negati ve Not Available [facility] [place] [address], [place], [address], 12/15/2021 23:05:26 12/16/19 22 12/15/2021 URINA LYSIS WITH MICRO SCOPI C REFLX CULTU RE urine leukocyte esterase NEGATI VE chris/u L negati ve Not Available [facility] [place] [address] [facility], [place], [address], 12/15/2021 23:05:26 12/16/19 22 12/15/2021 URINA LYSIS WITH MICRO SCOPI C REFLX CULTU RE urine white blood cells <6 /hpf <6 Not Available [facility] [place] [address] [facility], [place], [address], 12/15/2021 23:05:26 12/16/19 22 12/15/2021 URINA LYSIS WITH MICRO SCOPI C REFLX CULTU RE urine red blood cells <5 /hpf <5 Not Available [facility] [place] [address] [facility], [place], [address], 12/15/2021 23:05:26 12/16/19 22 12/15/2021 URINA LYSIS WITH MICRO SCOPI C REFLX CULTU RE urine bacteria NEGATI VE /hpf negati ve Not Available [facility] [place] [address] [facility], [place], [address], 12/15/2021 23:05:26 12/16/19 22 12/15/2021 URINA LYSIS WITH MICRO SCOPI C REFLX CULTU RE urine squamous epithelial cells FEW /hpf few Not Available [facility] [place] [address] [facility], [place], [address], 12/15/2021 23:05:26 12/16/19 22 12/15/2021 MICRO ALBUM IN/CR EATIN INE RATIO , RANDO M albumin, urine <3.0 Noah ified by qasim black sheila sis Not Available [address], [address], 12/16/2021 16:11:33 12/16/19 22 12/15/2021 MICRO ALBUM IN/CR EATIN INE RATIO , RANDO M alb/creat ratio <7 Tena l: 0 - 29 Moder ately incre ased: 30 - 300 Sever tessa incre ased: >300 Not Available [facility] [address] [place], [address], 12/16/2021 16:11:33 12/16/19 22 12/16/2021 MICRO ALBUM IN/CR EATIN INE RATIO , RANDO M creatinine, urine 43.7 mg/dL not estab. normal Not Available [facility] [address] [place], [address], 12/16/2021 16:11:33 01/10/20 22 11/08/2021 US, echoc ardio gram, trans thora cic, compl ete, w/ color flow No observ ation record ed. [email or web address] Not Available 01/09 12:25:18 01/10/20 22 11/07/2021 CT, chest , w/ contr ast No observ ation record ed. Not Available 01/09 12:26:35 01/10/20 22 11/08/2021 elect rocar diogr am No observ ation record ed. Not Available 01/09 13:04:25 02/28/20 22 02/21/2022 [...] Time Mixed anxiety and depressiv e disorder 396548713 Active APRIL DyerP [address], [place], [address] , [facility] 6 23:05:09 Degenerat ion of lumbar intervert ebral disc 53287529 Active Mary Bolivar [facility] [address], [place], [address] , [facility] 6 23:05:09 Cigarette smoker 19799996 Active APRIL DyerP [address], [place], [address] , [facility] 6 23:05:09 Degenerat ion of lumbosacr al intervert ebral disc 92275448 Active Mary Bolivar [facility] [address], [place], [address] , [facility] 6 23:05:09 Increased frequency of urination 394167158 Active 2017 Mary Bolivar [facility] [address], [place], [address] , [facility] 8 17:30:33 Visual disturban ce 98908220 Active 2017 Mary Bolivar [facility] [address], [place], [address] , [facility] 8 17:35:59 Mild memory disturban ce 836926231 Active 2017 Mary Bolivar [facility] [address], [place], [address] , [facility] 8 20:54:57 Long-term current use of opiate analgesic drug 22496275968 4108 Active 2017 Mary Bolivar [facility] [address], [place], [address] , [facility] 8 21:00:28 Overweigh t 269102864 Active 2017 [address], [address] [employer] [facility] [address], [place], [address] , [place] [facility] 8 17:16:33 History of hepatitis C 15979274641 101 Active 2017 APRIL DyerP [address], [place], [address] , [facility] 8 17:18:05 Malaise and fatigue 099333224 Active 2017 APRIL DyerP [address], [place], [address] , [facility] - [facility] 8 17:19:09 Intermitt ent palpitati ons 858222524 Active 2017 APRIL DyerP [address], [place], [address] , [facility] - [facility] 8 17:39:53 Blood glucose outside reference range 752502639 Active 2018 APRIL DyerP [address], [place], [address] , [facility] - [facility] 9 18:44:22 Spinal stenosis in cervical region 68354149 Active [address] [employer] [address], [place], [address] , [facility] - [facility] 9 15:58:06 Lumbar post-lami nectomy syndrome 473333370 Active [address] [employer] [address], [place], [address] , [facility] - [facility] 9 16:04:11 Palpitati ons 44626686 Active 2017 Not Available [facility] 0 10:47:05 Acute injury of kidney 21439718475 476056 Active 2021 APRIL DyerP [address], [place], [address] , [facility] 2 17:55:57 Rhabdomyo lysis 745420652 Active 2021 [facility], [address] [employer], [place], [address] , [facility] 2 17:56:19 Acute non-ST segment elevation myocardia l infarctio n 261736526 Active 2021 Mary Martell, [address], [place], [address] , [facility] 2 18:04:07 Body mass index 20-24 - normal 909377544 Active 2021 Mary Bolivar, [address], [place], [address] , [facility] 2 22:02:51 Tendiniti s of right shoulder 82516893844 35525 Active 2021 Mary Martell, [address], [place], [address] , [facility] 2 12:45:33 Superfici al injury of foot without infection 14907027 Active 2021 [facility], [address], [place], [address] , [facility] 2 12:51:42 Infection of skin 850837907 Active 2021 Mary Martell, [address] [employer], [place], [address] , [facility] 2 12:56:57 Liver enzymes level above reference range 185244693 Active 2021 [facility], [address], [place], [address] , [facility] 2 16:01:49 Celluliti s of foot 225668564 Active 2021 [facility], [address], [place], [address] , [facility] 2 22:38:23 Headache 57218453 Active 2021 Mary Bolivar, [address], [place], [address] , [facility] - [facility] 2 23:51:23 Liver function tests outside reference range 706640134 Active [address] [employer] [address], [place], [address] , [facility] 2 18:25:35 Lumbar radiculop athy 500084742 Active [address] [employer] [address], [place], [address] , [facility] 2 15:21:10 Basal cell carcinoma of skin [id number] Active 2022 APRIL DyerP [address], [place], [address] , [facility] 3 15:35:25 Lumbago with sciatica 166018414 Active [address] [employer] [address], [place], [address] , [facility] 3 15:47:59 Finding of hand region [id number] Completed 05/10/[address], [place], [address] , [facility] 6 23:05:09 Gastroeso phageal reflux disease 879660051 Active Mary [address] [employer]RE[facility] [address], [place], [address] , [facility] 6 23:05:09 Chronic pain syndrome 928893221 Active Mary [address] [facility] [address], [place], [address] , [facility] 6 23:05:09 Cough 90378766 Completed 08/06/2017 Mary Bolivar, RO[address] [employer] [facility] [address], [place], [address] , [place] [facility] 8 17:19:04 Menopausa l symptom 55444583 Active Mary Martell, RO[address] [employer] [facility] [address], [place], [address] , [place] [facility] 6 23:05:09 Benign essential hypertens ion 2123886 Active [facility], [address] [facility] [address], [place], [address] , [place] [facility] 6 23:05:09 Benign essential hypertens ion 1950321 Completed 05/10/2010 Mary Martell, RO[address] [employer] [facility]RE[facility] [address], [place], [address] , [place] [facility] 6 23:05:09 Acute hepatitis C 616968777 Completed 02/11/2018 [facility], [address] [facility] [address], [place], [address] , [facility] - [facility] 8 17:17:48 Feeling nervous 452064155 [facility], [address] [facility] [address], [place], [address] , [facility] - [facility] 6 23:05:09 Generaliz ed osteoarth ritis 804707995 [facility] [facility] [address], [place], [address] , [facility] - [facility] 6 23:05:09 Depressiv e disorder 86039802 [facility], [address] [facility] [address], [place], [address] , [place] [facility] 6 23:05:09 Closed fracture of phalanx of foot 76910551 [facility] [address] [facility] [address], [place], [address] , [place] [facility] 6 23:05:09 Tobacco dependenc e syndrome 30158516 Completed 08/06/2017 Mary Bolivar, RO[address] [employer] [address], [place], [address] , [facility] 8 17:22:06 Shoulder joint pain 597717504 Active Mary Bolivar, RO[address] [employer] [facility]RE[facility] [address], [place], [address] , [facility] 6 23:05:09 Carpal tunnel syndrome 71421156 Active Mary Martell, RO[address] [employer] [facility] [address], [place], [address] , [facility] 6 23:05:09 Obesity 034663834 Active Mary Martell, RO[address] [employer] [facility] [address], [place], [address] , [facility] 6 23:05:09 Osteopeni a 934682101 Active Mary Martell [address] [employer] [facility] [address], [place], [address] , [facility] 6 23:05:09 Low back pain 439187057 Completed 08/06/[address] [employer] [facility] [address], [place], [address] , [facility] 8 20:57:40 Asthma 829044718 Active Mary Martell, RO[address] [employer] [facility]RE[facility] [address], [place], [address] , [facility] 6 23:05:09 Problem Notes None recorded. Procedures Surgical History Date Name Laterality Status Provider Name and Address Organization Details Recorded Time 02/22/20 22 Stress MPI INITIAL - Lexiscan (IAC) completed Rebecca Matthew [facility] 02/21/2022 14:09:56 02/22/20 22 Stress MPI RESULT - Normal (IAC) [place] [address], [place], [address], [facility] 02/27/2022 10:37:33 12/30/19 21 Knee Replacement completed Mary Bolivar, RO[address] [employer] [facility] [address], [place], [address], [facility] 11/29/2021 17:59:04 08/07/19 18 PCM Nicotine SMOKING completed Pascaledaniel Chu [facility] 08/06/2017 16:48:59 08/19/19 17 PCMH Nicotine SMOKING completed SUNG Marsh [facility] 08/18/2016 19:24:27 05/15/19 17 PCM Nicotine SMOKING completed Rakan Cahse [facility] 05/15/2016 18:20:54 05/15/19 17 [facility] Depression Screening PHQ9 completed Rakan Chase [facility] 05/15/2016 18:20:44 04/30/19 10 Other (Please specify) completed Not Available [facility] 03/23/2011 02:44:30 04/30/19 09 Hip Surgery completed Not Available [facility] 03/23/2011 02:44:30 04/30/19 00 Tubal Ligation completed Not Available [facility] 03/23/2011 02:44:30 04/30/18 99 Cholecystectomy completed Not Available [facility] 03/23/2011 02:44:30 Gallbladder Surgery completed Alla Mccabe [facility] 01/11/2022 16:28:45 Back Surgery completed Alla Mccabe [facility] 01/11/2022 16:28:45 Joint Replacement completed Chula Mccabe [facility] 01/11/2022 16:28:45 Spine Surgery (Cervical, Thoracic, Lumbar) completed Alla Mccabe [facility] 01/11/2022 16:28:45 Section completed Mary Bolivar, RO[address] [employer] [facility] [address], [place], [address], [facility] 03/06/2022 18:43:29 Breast Surgery (Lumpectomy, Biopsy, Implants) completed Mary Bolivar, RO[address] [employer] [facility] [address], [place], [address], [facility] 03/06/2022 18:43:29 Carpal tunnel surgery completed Mary Bolivar, RO[address] [employer]IGHT [address], [place], [address], [place] - [facility] 06/12/2017 11:13:47 Imaging Results Imaging Date Name Status LastModified by Organization Details LastModified Time 11/08/2021 US, echocardiogram, transthoracic, complete, w/ color flow completed [email or web address] Information not available 01/09/2022 12:25:18 11/07/2021 CT, chest, w/ contrast completed [email or web address] Information not available 01/09/2022 12:26:35 11/08/2021 electrocardiogram completed Informa tion not available 01/09/2022 13:04:25 02/21/2022 [...] Updated DateTime 2 152.4 cm 21.6 kg/m2 05689.3 2 g 99.3 [degF] 99 % 99 % 69 /min 14 /min 140 mm[Hg] 80 mm[Hg] Pina Gambino [facility] 2 12:30:23 Date Recorded Body height Body mass index (BMI) Body weight Heart rate Oxygen saturation Oxygen saturation in Arterial blood by Pulse oximetry Systolic blood pressure Diastolic blood pressure Provider Name and Address Organization Details Last Updated DateTime 2 152.4 cm 23 kg/m2 54805.9 g 72 /min 98 % 98 % 122 mm[Hg] 66 mm[Hg] Alla Mccabe [facility] 2 16:38:02 Date Recorded Body height Body mass index (BMI) Body weight Body temperature Heart rate Respiratory rate Oxygen saturation Oxygen saturation in Arterial blood by Pulse oximetry Systolic blood pressure Diastolic blood pressure Provider Name and Address Organization Details Last Updated DateTime 2 152.4 cm 23.5 kg/m2 53275.1 8 g 98 [degF] 50 /min 16 /min 97 % 97 % 126 mm[Hg] 67 mm[Hg] Yin May [facility] 2 18:21:37 Date Recorded Body height Body mass index (BMI) Body weight Body temperature Respiratory rate Oxygen saturation Oxygen saturation in Arterial blood by Pulse oximetry Heart rate Systolic blood pressure Diastolic blood pressure Provider Name and Address Organization Details Last Updated DateTime 3 152.4 cm 23.4 kg/m2 41341.0 8 g 98.7 [degF] 16 /min 99 % 99 % 64 /min 110 mm[Hg] 80 mm[Hg] Pina Gambino [facility] 3 15:18:31 Social History Question Answer Notes LastModified by Organizat ion Details LastModified Time Tobacco Smoking Status Current Every Day Smoker [facility], [facility] [address], [place], [address], [facility] 03/06/2022 18:43:22 Do You Have An Advance Directive? No [email or web address] Information not available 01/11/2022 Are You Blind Or Do You Have Difficulty Seeing? Yes [email or web address] Information not available 01/11/2022 Is Blood Transfusion Acceptable In An Emergency? Yes [email or web address] Information not available 01/11/2022 What Is Your Level Of Caffeine Consumption? Moderate [email or web address] Information not available 01/11/2022 How Much Tobacco Do You Chew? None Information not available 09/02/2018 Are You Deaf Or Do You Have Serious Difficulty Hearing? No [email or web address] Information not available 01/11/2022 What Type Of Diet Are You Following? REGULAR Information not available 08/06/2017 When Did You Quit Smoking? 1-5yearssin celastcigar ette Information not available 11/29/2021 Which Of Your Hands Is Dominant? Right [email or web address] Information not available 01/11/2022 Marital Status Informatio n not available 03/06/2022 What Was The Date Of Your Most Recent Tobacco Screening? 05/11/2022 [email or web address] Information not available 05/11/2022 Do You Have Any Pets? No [email or web address] Information not available 01/11/2022 What Is Your Relationship Status? [email or web address] Information not available 01/11/2022 Are You Sexually [...] use any illicit or recreational drugs? No [email or web address] Information not available 01/11/2022 Do you or have you ever used any other forms of tobacco or nicotine? No [email or web address] Information not available 01/11/2022 What is your level of alcohol consumption? None clean and sober Information not available 05/10/2015 Are you currently employed? No [email or web address] Information not available 01/11/2022 Are you able to care for yourself? Yes [email or web address] Information not available 01/11/2022 What is your occupation? disability Information not available 08/06/2017 What is your exercise level? Moderate [email or web address] Information not available 01/11/2022 Mental Status Question Answer Note LastModified by Organization D etails LastModified Time Do you feel stressed (tense, restless, nervous, or anxious, or unable to sleep at night)? [id number] [email or web address] Information not available 01/11/2022 Family History Relationship [...] Not available 2021 18:43:09 Mother Hypertensive disorder [email or web address] Not available 01/11 16:28:33 Mother Hyperlipidem ia [email or web address] Not available 2021 18:43:10 Mother Heart disease [email or web address] Not available 2021 18:43:10 Mother Disorder of musculoskele diego system [email or web address] Not available 03/06 18:43:10 Brother Coronary arterioscler osis [email or web address] Not available 2021 18:43:10 Brother Hypertensive disorder [email or web address] Not available 01/11 16:28:33 Brother Disorder of musculoskele diego system [email or web address] Not available 03/06 18:43:10 Maternal Grandmother Diabetes mellitus [email or web address] Not available 2021 18:43:10 Maternal Grandmother Alzheimer's disease [email or web address] Not available 2021 18:43:10 Maternal Grandmother Depressive disorder [email or web address] Not available 2021 18:43:10 Maternal Grandmother Hypertensive disorder [email or web address] Not available 01/11 16:28:33 Maternal Grandmother Family [...] High Blood Pressure (Hypertension) Y Arthritis Y Anxiety Y Osteopenia/Osteoporosis Y Overweight/Obesity Y [...] virus, quadrivalent, PF 4 completed Not Available [facility] 05/17/2019 02:10:36 zoster recombinant 8 completed Pina Patullo null, [facility] 12/15/2021 12:22:52 Influenza, split virus, trivalent, preservative 0 completed Pina Patullo null, [facility] 12/15/2021 12:22:52 Influenza, split virus, quadrivalent, PF 6 completed Pina Patullo null, [facility] 12/15/2021 12:22:52 zoster recombinant 8 completed Pina Patullo null, [facility] 12/15/2021 12:22:52 Past Encounters Encounter ID Performer Location Encounter Start Date Encounter Closed Date Diagnosis/Indication Diagnosis SNOMED-CT Code Diagnosis ICD10 Code Diagnosis Note [id number] ASHTYN Dyer [facility] and [address] [facility] [address] [place] [address] 05/05/2010 18:12:34 05/05/2010 19:18:30 [id number] Zena Ramirez MD [facility] [address] [place] [address] 05/10/2010 17:06:55 05/10/2010 18:50:11 [id number] Essence Knowles, [facility] and [address] [place] [address] 05/31/2010 18:17:55 05/31/2010 19:23:28 [id number] Essence Knowles, DO [facility] and [address] [facility] [place] [address] 10/04/2010 17:25:28 10/04/2010 18:04:57 [id number] Essence Knowles, DO [facility] and [address] [facility] [place] [address] 10/26/2010 15:30:56 10/26/2010 16:47:04 [id number] Nakul Boland, DO [facility] [address] [facility] [place] [address] 12/19/2010 19:34:25 12/19/2010 20:13:27 [id number] Essence Knowles, DO [facility] and [address] [facility] [place] [address] 03/17/2011 14:44:01 03/17/2011 15:31:54 [id number] Essence Knowles, DO [facility] and [address] [place] [address] 06/01/2011 12:28:37 06/01/2011 13:54:09 [id number] Jones, ROAD ENGINEER FREIGHT-C [facility] and [address] [facility] [place] [address] 07/18/2012 19:08:12 07/19/2012 13:17:25 [id number] Essence Knowles, DO [facility] and [address] [facility] [place] [address] 05/22/2013 16:22:52 05/23/2013 10:09:02 Feeling nervous 606792762 RF meds, use as directed. Tobacco de pendence syndrome 55098334 Pt unwilling to quit at this time. Cough likely related. Discussed risk of COPD. Benign ess ential hypertension 7960733 Restart meds, check labs. Acute hepatitis C 586338331 check labs. [id number] Essence Knowles, DO [facility] and [address] [place] [address] 12/15/2013 18:32:26 12/15/2013 19:40:41 Benign essential hypertension 9187528 Check labs, continue meds. Feeling nervous 561892017 RF meds, use as directed. Obesity 214061508 Encour aged healthy diet and exercise. Carpal dorys mellissa syndrome 08352520 Send to specialist . Acute hepatitis C 866185713 check labs. [id number] Essence Knowles, DO [facility] and [address] [place] [address] 01/02/2014 10:53:17 01/02/2014 15:51:25 Osteopenia 801274618 Due for DEXA scan, ordered. Tobacco de pendence syndrome 11780130 Pt unwilling to quit at this time. Discussed risk of COPD. [id number] Essence Knowles, DO [facility] and [address] [place] [address] 03/19/2014 15:04:03 03/19/2014 15:32:34 Influenza vaccine needed 8482583587 106 Asthma 501829250 RF inhaler, using occasional ly. Discussed asthma action plan. [id number] ASHTYN Dyer [facility] and [address] [place] [address] 05/10/2015 15:37:23 05/11/2015 11:24:05 Asthma 916973414 J45.909 Inhaler prn wheeze Benign ess ential hypertension 0207181 I10 continue Lisinopril /HTTZ; monitor BP Tobacco de pendence syndrome 77953752 F17.290 ASHLINE.OR G to assist with cessation Influenza vaccine needed 9395613887 106 Z23 Mixed anxi ety and depressive disorder 301613623 F41.8 needs follow-up with psych; discuss combinatio n of Lorazepam and pain medication s can cause excessive sedation Osteopenia 162954850 M85 .80 Degenerati on of lumbar intervertebral disc 30085262 M51.36 Continue PM follow-up [id number] [facility], [facility] and [address] [place] [address] 07/13/2015 15:34:17 07/14/2015 12:42:51 Cigarette smoker 77602777 F17.210 Discuss triggers - Patch to help quit - start 21 mg/day then decrease to 14 mg/day - no smoking while on patch Mixed anxi ety and depressive disorder 707687085 F41.8 Discuss need for psych referral - OK refill Lorazepam - avoid using daily - can develop tolerance Benign ess ential hypertension 1192670 I10 continue Lisinopril /HTTZ; monitor BP [id number] Barby Rogel MD [facility] and [address] [place] [address] 05/15/2016 17:34:06 05/15/2016 19:08:03 Shoulder joint pain 382650532 M25.511 ref to Ortho.outs bonita records reviewed.O n chronic opioids. [id number] ERIKA Crow [facility] and [address] [facility] [place] [address] 08/18/2016 19:13:26 08/21/2016 03:16:32 Nicotine dependence 12469393 F17.210 Quitting smoking including medication s options discussed, risks and benefits discussed. Diarrhea 58578170 R19.7 due to intoleranc e to water intake, advised ER for IV fluids. OK to take pepto bismol, imodium, and zofran for s/sx control post-ER visit with close f/u 3-5 days for persisting s/sx. Nausea 201778347 R11.0 ok for PRN zofran Benign ess ential hypertension 9243773 I10 stable; avoid medication s until dehydratio n resolved. [id number] [facility], [facility] and [address] [place] [address] 08/06/2017 16:20:46 08/06/2017 21:19:04 Benign essential hypertension 5324106 I10 Lisinopril to 40 mg daily ; monitor BP - ideally < 140/90 Asthma 525604199 J45.90 9 Inhaler prn wheeze Cigarette smoker 6170356 7 F17.210 Discuss triggers - Patch to help quit - start 7 mg/day - no smoking while on patch Chronic pain syndrome 37 3706783 G89.4 seen by pain management Degenerati on of lumbosacral intervertebral disc 32657275 M51.37 seen by pain management ; epidural helping Increased frequency of urination 506338166 R35.0 recheck labs Viral screening 65224943 4 Z11.59 Screening mammography 24 323195 Z12.31 Visual disturbance 25497 001 H53.9 referral submitted Administra tion of viral vaccine 04083393 Z23 Mild memor y disturbance 565275548 R41.3 reported - follow-up in 1 month for further testing Chronic back pain 704294 002 M54.12 seen by pain management ; epidural helping Long-term current use of opiate analgesic drug 9659708325 34425 Z79.891 seen by pain management ; weaning off patch [id number] MaryAPRIL SalgueroP [facility] and [address] [place] [address] 02/11/2018 16:01:06 02/11/2018 21:36:59 Overweight 270184474 Z68.27 food diary- DASH diet - silver sneakers for exercise Degenerati on of lumbar intervertebral disc 94758401 M51.[address] Torrez for epidural injections Chronic pain syndrome 37 3082672 G89.4 seen by pain management Cigarette smoker 4441543 7 F17.210 Discuss triggers - Intermitte nt palpitations 371311673 R00.[address] referral Benign ess ential hypertension 4272634 I10 Lisinopril to 40 mg daily + add HCTZ ; monitor BP - ideally < 140/90 Malaise and fatigue 2717 22960 R53.83 recheck labs History of hepatitis C 5260417276 9101 Z86.19 virus cleared Screening for malignant neoplasm of colon 891610481 Z12.11 [id number] Poonam Quinn MD [facility] [address] [place] [address] 06/06/2018 16:55:47 06/10/2018 16:39:57 [id number] Poonam Quinn MD [facility] cardiolog y [address] ,[address] [place] [address] 06/19/2018 09:21:20 06/19/2018 10:16:22 [id number] Mary Bolivar [facility] and [address] [place] [address] 09/02/2018 16:58:51 09/03/2018 09:16:52 Obesity 400857456 E66.9 Z68.31 discuss weight gain;Diet: 1800 Calories Low Glycemic Index DietExerci se: Work up to 30 min 5x/week as tolerated Depression screening 171 267044 Z13.89 see PQH-9 result in body of chart Screening Negative Benign ess ential hypertension 7888621 I10 BP elevated today - increased pain and off metoprolol - Lisinopril to 40 mg daily + resume metoprolol - monitor BP - ideally < 140/90 Cigarette smoker 9517327 7 F17.210 Discuss triggers - decreasing smoking - hoping to quit Long-term current use of opiate analgesic drug 8462725697 31630 Z79.891 seen by pain management ; Chronic pain syndrome 37 3233178 G89.4 OK to resume Topamax seen by pain management Degenerati on of lumbar intervertebral disc 23296649 M51.36 epidural injections done - pain management seen Screening for malignant neoplasm of colon 386387300 Z12.11 Osteopenia 910359135 M85 .80 check labs Blood gluc ose outside reference range 582378431 R73.09 check labs Gastroesop hageal reflux disease 427690486 K21.9 stable Mammography abnormal 168 334384 R92.8 [id number] Mary Bolivar, [facility] and [address] [facility] [address] [place] [address] 11/12/2018 15:01:58 11/12/2018 18:51:23 Benign essential hypertension 1698083 I10 BP elevated today Lisinopril 40 mg daily + metoprolol 50 mg - monitor BP - ideally < 140/90 Obesity 606044114 Z68.31 Diet: 1800 Calories Low Glycemic Index Diet Exercise: Work up to 30 min 5x/week as tolerated Asthma 638978408 J45.90 9 aerosol Inhaler prn wheeze Chronic pain syndrome 37 5218499 G89.4 increase Topamax 100 mg BID - seen by pain management Long-term current use of opiate analgesic drug 0676354166 18558 Z79.891 seen by pain management ; Cigarette smoker 0962529 7 F17.210 Discuss triggers - decreasing smoking - hoping to quit Degenerati on of lumbosacral intervertebral disc 41645029 M51.37 seen by pain management - needs transfer to [place] - Pain management tomorrow Spinal jefe nosis in cervical region 01840151 M48.02 per MRI done at pain [facility] Lumbar post-laminectomy syndrome 458261114 M96.1 Pain management follow-up [id number] [facility] and [address] [place] [address] 11/29/2021 17:04:20 11/30/2021 06:58:32 Acute injury of kidney 8279195868 0074816 N17.9 recheck labs - good fluid intake - recheck labs today Rhabdomyolysis 186528095 M62.82 good fluid intake Benign ess ential hypertension 3659836 I10 amlodipine 5 mg daily in hospital but was on Metoprolol and lisinopril in [place] Acute non- ST segment elevation myocardial infarction 227625969 I21.4 ASA daily Chronic pain syndrome 37 2872647 G89.4 Topamax 50 mg BID - referral to pain management - asking about RX for pain meds but instructed that needs to get from pain management Ex-cigarette smoker 2810 19854 Z87.891 Just quit - stay off smoking Body mass index 20-24 - normal 345240808 Z68.20 [id number] [facility] and [address] [place] [address] 12/15/2021 12:22:05 12/16/2021 08:34:45 Tendinitis of right shoulder 0198877920 604081 M75.91 PT referral submitted Chronic pain syndrome 37 0347757 G89.4 Duloxetine daily - Topamax 50 mg BID - has referral to pain management Asthma 759397847 J45.90 9 Inhaler prn wheeze- ok to resume Kulwinder black Ex-cigarette smoker 2810 98275 Z87.891 Just quit - stay off smoking Infection of skin 156091 000 L08.9 keep clean with soap and water and keep dry - OK for Mupirocin to edge of left foot abrasion Acute non- ST segment elevation myocardial infarction 405175818 I21.4 ASA daily -metoprolo l - low dose lisinopril - cardiology referral discussed Benign ess ential hypertension 4796505 I10 amlodipine with Metoprolol and lisinopril Depression screening 171 071060 Z13.31 see [facility]-9 result in body of chart Screening Negative [id number] MD LUCA Villanueva_[facility] [place] [address] [place] [address] 01/11/2022 16:24:26 01/11/2022 17:30:02 Acute non-ST segment elevation myocardial infarction 191135645 I21.4 He has been diagnosed with a [...] left foot pain Benign ess ential hypertension 8444125 I10 Blood pressure is controlled on current treatment she is on lisinopril 10 mg and Toprol 25 mg Blood gluc ose outside reference range 969406495 R73.09 [id number] MD LUCA [facility] [facility] [address] [place] [address] 02/21/2022 10:08:23 02/21/2022 14:16:00 Acute non-ST segment elevation myocardial infarction [id number] I21.4 He has been diagnosed with a [...] treadmill because of her left foot pain [id number] Mary Bolivar, [facility] and [address] [place] [address] 03/06/2022 17:54:38 03/07/2022 23:28:20 Normal weight 78008842 Z68.23 Liver func tion tests outside reference range 972976121 R94.5 denies alcohol use - discuss possible causes Chronic pain syndrome 37 5940343 G89.4 Duloxetine daily - Topamax 50 mg BID - pain management seen Degenerati on of lumbar intervertebral disc 14181903 M51.36 OK for steroid pack - epidural injections tried - pain management seen Lumbar post-laminectomy syndrome 514484984 M96.1 OK for scooter - Pain management follow-up Mixed anxi ety and depressive disorder 427410390 F41.8 psych referral - discuss counseling Cigarette smoker 6626627 7 F17.210 Discuss triggers - try to decrease smoking Benign ess ential hypertension 6810898 I10 lisinopril 10 mg daily Depression screening 171 092736 Z13.31 see PQH-9 result in body of chart Screening Positive: Overall Plan discussed with Pt [id number] Mary Bolivar, [facility] and [address] [place] [address] 05/11/2022 15:06:18 05/12/2022 06:02:02 Depression screening 989942596 Z13.31 see PQH-9 result in body of chart Screening Negative Cigarette smoker 9084338 7 F17.210 Discuss triggers - try to decrease smoking Degenerati on of lumbar intervertebral disc 00949024 M51.36 epidural injections tried - pain management seen - care coordinato r referral Long-term current use of opiate analgesic drug 7987935629 36029 Z79.891 seen by pain management ; Spinal jefe nosis in cervical region 19475219 M48.02 per MRI done at pain management Basal cell carcinoma of skin 715485420 C44.91 DERM referral Lumbago with sciatica 20 4077252 M54.42 OK for steroid injection today to help with inflammati on Lack of ac cess to transportation 254259395 Z59.82 OK for transport assistance Health Concerns Section Related Observation LastModified by Organization Detai ls LastModified Time None Recorded Concern Status LastModified by Organization Details LastModified Time None Recorded Advance Directives Directive N: Payers Insurance Date Sequence Insurance Name Policy Number Policy Crawley Covered Member ID Crawley Member ID Guarantor Name 08/18/2022 2 [facility] Sangita Umana [id number] Sangita Umana 08/08/2022 1 [facility] (MEDICARE REPLAC[facility]/A DVANTAGE - HMO) Sangita Umana [id number] Sangita Umana 08/18/2022 1 [facility] REPLACEMENT/A DVANTAGE - HMO) [facility] Sangita Umana [id number] Sangita Umana 08/08/2022 1 [place] Sangita Umana [id number] Sangita Umana 08/08/2022 1 [facility] - MEDICARE SOLUTIONS - [place] - MEDICARE COMPLETE (MEDICARE REPLACEMENT HMO) [id number] Sangita Umana [id number] Sangita Umana 08/08/2022 1 [facility] (MEDICAID HMO) Sangita Umana [id number] Sangita Umana 08/08/2022 1 [facility] [place] [facility] [place] (MEDICARE REPLACEMENT HMO) Sangita Umana [id number] Sangita Umana 08/08/2022 1 [facility] [place] ([place]ICARE - MEDICAID REPLACEMENT HMO) Sangita Umana [id number] Sangita Umana 08/08/2022 3 [facility] ([place] REPLACEMENT/A DVANTAGE - HMO) Sangita Umana [id number] Sangita Umana 08/08/2022 1 [facility] - DUAL COMPLETE - DUAL ELIGIBLE - [place] (MEDICARE-MED ICAID REPLACEMENT HMO) Sangita Umana [id number] Sangita Umana 08/08/2022 2 [facility] (MEDICAID HMO) Sangita Umana [id number] Snagita Grace Dong 08/08/2022 1 [facility] (MEDICARE REPLACEMENT/A DVANTAGE - HMO) [facility] Sangita Grace Dong [id number] Sangita Umana Notes Date Note Type Note [...] muscle relaxer helpingLabs done today ASHTYN Dyer [address], [place], [address], [facility] 12/15/2021 15:34:55 01/11/2022 text/html This is a [...] [place] [address], [place], [address], [facility] 01/11/2022 17:02:02 03/06/2022 text/html review labs - wa s not fastingless dessert and more natural foodsno alcohol - in AAhair thinningseen by pain specialist - epidural scheduled - steroid pack tried - sharp stabbing pain on lumbar back - pinching painhaving issues with transportation Mary Bolivar, [employer] [address], [place], [address], [facility] 03/06/2022 21:27:33 05/11/2022 text/html [facility] - HTNReport ed bypatient.Type:essenti al Duration or [...] - back mole getting larger Mary Bolivar, [employer] [address], [place], [address], [facility] 05/11/2022 20:05:50 OBGyn Episode No OBEpisode recorded.
--- OUTSIDE RECORDS SUMMARY | 2024-09-11 13:21 | XMS_ITS | Data Portability ---
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 Name Role Phone MARY ESCOTO Primary Care [...] By Organization Details Last Modified Time 08/24/2022 [id number] learning about healthy weight Not available 08/24/2022 [...] lumbar MBB/RFA Not available 08/24/2022 16:51:57 09/12/2022 [id number] We will rereques t records from prior [...] mg/dL 20 - 400 Not Available [facility] [address] [place] [address], [place], [address], 08/25/2022 22:53:13 08/25/19 23 08/25/2022 VALID ITY pH Normal 4.0 - 9.5 Not Available [facility] [address] [place] [address], [place], [address], 08/25/2022 22:53:13 08/25/19 23 08/25/2022 VALID ITY specific gravity Normal 1.0030 - 1.0350 normal Not Available [facility] [address] [place] [address], [place], [address], 08/25/2022 22:53:13 08/25/19 23 08/25/2022 UDT SCREE N opi Neg Not Available [facility] [address] [place] [address], [place], [address], 08/25/2022 22:53:13 08/25/19 23 08/25/2022 UDT SCREE N THC Pos Not Available [facility] [address] [place] [address], [place], [address], 08/25/2022 22:53:13 08/25/19 23 08/25/2022 UDT SCREE N fentanyl Neg Not Available [facility] [address] [place] [address], [place], [address], 08/25/2022 22:53:13 08/25/19 23 08/25/2022 UDT SCREE N kaur Neg Not Available [facility] [address] [place], [place] [address], [place], [address], 08/25/2022 22:53:13 08/25/19 23 08/25/2022 UDT SCREE N madisyn Neg Not Available [facility] [address] [place], [place] [address], [place], [address], 08/25/2022 22:53:13 08/25/19 23 08/25/2022 UDT SCREE N pcp Neg Not Available [facility] [address] [place], [place] [address], [place], [address], 08/25/2022 22:53:13 08/25/19 23 08/25/2022 UDT SCREE N mdn Neg Not Available [facility] [address] [place], [place] [address], [place], [address], 08/25/2022 22:53:13 08/25/19 23 08/25/2022 UDT SCREE N oxy Pos Not Available [facility] [address] [place], [place] [address], [place], [address], 08/25/2022 22:53:13 08/25/19 23 08/25/2022 UDT SCREE N bup Neg Not Available [facility] [address] [place] [address], [place], [address], 08/25/2022 22:53:13 08/25/19 23 08/25/2022 UDT SCREE N amp Neg Not Available [facility] [address] [place], [place] [address], [place], [address], 08/25/2022 22:53:13 08/25/19 23 08/25/2022 UDT SCREE N ETOH Neg <50.0 Not Available [facility] [address] [place] [address], [place], [address], 08/25/2022 22:53:13 08/25/19 23 08/28/2022 ALCOH OL BIOMA RKERS etg Negati ve NG/mL <500 Not Available [facility] [address] [place] [address], [place], [address], 09/01/2022 14:09:59 08/25/19 23 08/28/2022 ALCOH OL BIOMA RKERS ets Negati ve NG/mL <500 Not Available [facility] [address] [place] [address], [place], [address], 09/01/2022 14:09:59 08/25/19 23 08/28/2022 AMPHE TAMIN ES methamphetam ine Negati ve NG/mL <100 Not Available [facility] [address] [place] [address], [place], [address], 09/01/2022 14:09:59 08/25/19 23 08/28/2022 AMPHE TAMIN ES amphetamine Negati ve NG/mL <100 Not Available [facility] [address] [place] [address], [place], [address], 09/01/2022 14:09:59 08/25/19 23 08/28/2022 AMPHE TAMIN ES phentermine Negati ve NG/mL <100 Not Available [facility] [address] [place] [address], [place], [address], 09/01/2022 14:09:59 08/25/19 23 08/28/2022 VIC TURAT ES butalbital Negati ve NG/mL <100 Not Available [facility] [address] [place] [address], [place], [address], 09/01/2022 14:10:00 08/25/19 23 08/28/2022 VIC TURAT ES phenobarbita l Negati ve NG/mL <100 Not Available [facility] [address] [place] [address], [place], [address], 09/01/2022 14:10:00 08/25/19 23 08/28/2022 BENZO DIAZE PINES alprazolam Negati ve NG/mL <20 Not Available [facility] [address] [place] [address], [place], [address], 09/01/2022 14:10:00 08/25/19 23 08/28/2022 BENZO DIAZE PINES hydroxyalpra zolam Negati ve NG/mL <40 Not Available [facility] [address] [place] [address], [place], [address], 09/01/2022 14:10:00 08/25/19 23 08/28/2022 BENZO DIAZE PINES chlordiazepo xide Negati ve NG/mL <20 Not Available [facility] [address] [place] [address], [place], [address], 09/01/2022 14:10:00 08/25/19 23 08/28/2022 BENZO DIAZE PINES clonazepam Negati ve NG/mL <100 Not Available [facility] [address] [place] [address], [place], [address], 09/01/2022 14:10:00 08/25/19 23 08/28/2022 BENZO DIAZE PINES aminoclonaze bisi Negati ve NG/mL <100 Not Available [facility] [address] [place] [address], [place], [address], 09/01/2022 14:10:00 08/25/19 23 08/28/2022 BENZO DIAZE PINES diazepam Negati ve NG/mL <20 Not Available [facility] [address] [place] [address], [place], [address], 09/01/2022 14:10:00 08/25/19 23 08/28/2022 BENZO DIAZE PINES nordiazepam Negati ve NG/mL <40 Not Available [facility] [address] [place] [address], [place], [address], 09/01/2022 14:10:00 08/25/19 23 08/28/2022 BENZO DIAZE PINES temazepam Negati ve NG/mL <50 Not Available [facility] [address] [place] [address], [place], [address], 09/01/2022 14:10:00 08/25/19 23 08/28/2022 BENZO DIAZE PINES oxazepam Negati ve NG/mL <50 Not Available [facility] [address] [place] [address], [place], [address], 09/01/2022 14:10:00 08/25/19 23 08/28/2022 BENZO DIAZE PINES lorazepam Negati ve NG/mL <50 Not Available [facility] [address] [place] [address], [place], [address], 09/01/2022 14:10:00 08/25/19 23 08/28/2022 BENZO DIAZE PINES triazolam Negati ve NG/mL <20 Not Available [facility] [address] [place] [address], [place], [address], 09/01/2022 14:10:00 08/25/19 23 08/28/2022 BENZO DIAZE PINES hydroxytriaz olam Negati ve NG/mL <20 Not Available [facility] [address] [place] [address], [place], [address], 09/01/2022 14:10:00 08/25/19 23 08/28/2022 BUPRE NORPH INE buprenorphin e Negati ve NG/mL <5 Not Available [facility] [address] [place] [address], [place], [address], 09/01/2022 14:10:01 08/25/19 23 08/28/2022 BUPRE NORPH INE norbuprenorp giovana Negati ve NG/mL <10 Not Available [facility] [address] [place] [address] [address], [place], [address], 09/01/2022 14:10:01 08/25/19 23 08/28/2022 GEOVANI SAUNDERS DS, NATTIFFANY AL THC-cooh 134 NG/mL <25 high Not Available [facility] [address] [place] [address] [address], [place], [address], 09/01/2022 14:10:01 08/25/19 23 08/28/2022 COCAI NE benzoylecgon ine Negati ve NG/mL <50 Not Available [facility] [address] [place] [address] [address], [place], [address], 09/01/2022 14:10:02 08/25/19 23 08/28/2022 FENTA NYLS fentanyl Negati ve NG/mL <3 Not Available [facility] [address] [place], [place] [address], [place], [address], 09/01/2022 14:10:02 08/25/19 23 08/28/2022 FENTA NYLS norfentanyl Negati ve NG/mL <8 Not Available [facility] [address] [place] [address] [address], [place], [address], 09/01/2022 14:10:02 08/25/19 23 08/28/2022 HEROI N METAB OLITE 6-COLLIN Negati ve NG/mL <10 Not Available [facility] [address] [place] [address] [address], [place], [address], 09/01/2022 14:10:03 08/25/19 23 08/28/2022 METHA DONE methadone Negati ve NG/mL <100 Not Available [facility] [address] [place] [address] [address], [place], [address], 09/01/2022 14:10:04 04/2708/28/2022 METHA DONE EDDP Negati ve NG/mL <100 Not Available [facility] [address] [place] [address], [place], [address], 09/01/2022 14:10:04 08/25/19 23 08/28/2022 METHY LENED IOXYA MPHET AMINE S MDMA Negati ve NG/mL <50 Not Available [facility] [address] [place] [address], [place], [address], 09/01/2022 14:10:04 08/25/19 23 08/28/2022 OPIAT ES codeine Negati ve NG/mL <50 Not Available [facility] [address] [place] [address], [place], [address], 09/01/2022 14:10:04 08/25/19 23 08/28/2022 OPIAT ES dihydrocodei ne Negati ve NG/mL <25 Not Available [facility] [address] [place], [place] [address], [place], [address], 09/01/2022 14:10:04 08/25/19 23 08/28/2022 OPIAT ES morphine Negati ve NG/mL <50 Not Available [facility] [address] [place] [address] [address], [place], [address], 09/01/2022 14:10:04 08/25/19 23 08/28/2022 OPIAT ES hydrocodone Negati ve NG/mL <50 Not Available [facility] [address] [place], [place] [address], [place], [address], 09/01/2022 14:10:04 08/25/19 23 08/28/2022 OPIAT ES hydromorphon e Negati ve NG/mL <50 Not Available [facility] [address] [place], [place] [address], [place], [address], 09/01/2022 14:10:04 08/25/19 23 08/28/2022 OPIOI DS AND OPIAT E ANALO GS dextromethor luke Negati ve NG/mL <100 Not Available [facility] [address] [place] [address], [place], [address], 09/01/2022 14:10:05 08/25/19 23 08/28/2022 OPIOI DS AND OPIAT E ANALO GS levorphanol Negati ve NG/mL <5 Not Available [facility] [address] [place] [address], [place], [address], 09/01/2022 14:10:05 08/25/19 23 08/28/2022 OPIOI DS AND OPIAT E ANALO GS naloxone Negati ve NG/mL <10 Not Available [facility] [address] [place] [address], [place], [address], 09/01/2022 14:10:05 08/25/19 23 08/28/2022 OXYCO DONE oxycodone 125 NG/mL <50 high Not Available [facility] [address] [place] [address], [place], [address], 09/01/2022 14:10:06 08/25/19 23 08/28/2022 OXYCO DONE noroxycodone 859 NG/mL <25 high Not Available [facility] [address] [place] [address], [place], [address], 09/01/2022 14:10:06 08/25/19 23 08/28/2022 OXYCO DONE oxymorphone 142 NG/mL <50 high Not Available [facility] [address] [place] [address], [place], [address], 09/01/2022 14:10:06 08/25/19 23 08/28/2022 SKELE BARRIE MUSCL E RELAX ANTS carisoprodol Negati ve NG/mL <100 Not Available [facility] [address] [place] [address], [place], [address], 09/01/2022 14:10:06 08/25/19 23 08/28/2022 SKELE BARRIE MUSCL E RELAX ANTS meprobamate Negati ve NG/mL <200 Not Available [facility] [address] [place] [address] , [place], [address], 09/01/2022 14:10:06 08/25/19 23 08/28/2022 TAPEN TADOL tapentadol Negati ve NG/mL <25 Not Available [facility] [address] [place] [address] , [place], [address], 09/01/2022 14:10:07 08/25/19 23 08/28/2022 TRAMA DOL tramadol Negati ve NG/mL <100 Not Available [facility] [address] [place] [address] , [place], [address], 09/01/2022 14:10:07 08/25/19 23 08/28/2022 TRAMA DOL O-desmethylt ramadol Negati ve NG/mL <100 Not Available [facility] [address] [place] [address] , [place], [address], 09/01/2022 14:10:07 Result Notes None recorded. Problems Name Problem SNOMED Code Status Onset Date Resolution Date Notes Provider Name and Address Organization Details Recorded Time Chronic pain 77369928 Active 2022 Bruce Rich DO [address] [place] [address], [facility] [place], [address], [facility] 3 15:50:14 Lumbar post-laminecto my syndrome 319393165 Active 2022 Bruce Rich DO [address] [place] [address], [address], [place], [address], [facility] 3 15:50:25 Degeneration of cervical intervertebral disc 65048032 Active 2022 Bruce Rich DO [address] [place] [address], [address], [place], [address], [facility] 3 15:50:34 Lumbar spondylosis 771902469 Active 2022 [place] [address], [address], [place], [address], [facility] 3 15:51:34 Problem Notes None recorded. [...] Updated DateTime 08/24/2022 147.32 cm 26.1 kg/m2 35996.05 g 98 [degF] Mary Anne Han [facility] 08/24/2022 16:56:22 Date Recorded Body height Body mass index (BMI) Body weight Body temperature Provider Name and Address Organization Details Last Updated DateTime 09/12/2022 147.32 cm 26.1 kg/m2 78445.05 g 98 [degF] Mary Anne Han [facility] 09/12/2022 13:49:07 Social History Question Answer Notes LastModified by Organizat ion Details LastModified Time Tobacco Smoking Status Current Every Day Smoker Mary Anne echeverria [facility] 08/24/2022 15:31:42 How Much Tobacco Do You Chew? None Information not available 08/24/2022 Last Dental Exam 10/07/2018 Information not available 08/24/2022 Are You On Disability Or Applying For It? Yes [email or web address] Information not available 08/24/2022 Marital Status [email or web address] Informatio n not available 08/24/2022 Employment Status Disabled [email or web address] Information not available 08/24/2022 Last Day Of Work 06/03/2014 Information not available 08/24/2022 Currently Receiving Or Applying For Disability [email or web address] Information not available 08/24/2022 Illicit Drug Use? No [email or web address] Information not available 08/24/2022 What Was The Date Of Your Most Recent Tobacco Screening? 09/12/2022 [email or web address] Information not available 09/12/2022 How Much Tobacco Do You Smoke? 0.25 PPD [email or web address] Information not available 08/24/2022 Has Tobacco Cessation Counseling Been Provided? Yes [email or web address] Information not available 09/12/2022 On What Date Was Tobacco Cessation Counseling Provided? 09/12/2022 [email or web address] Information not available 09/12/2022 Sex: Unknown Functional Status Question Answer Note LastModified by Organizat ion Details LastModified Time Do you use any illicit or recreational drugs? No [email or web address] Information not available 08/24/2022 What is your level of alcohol consumption? None [email or web address] Information not available 08/24/2022 Do you or have you ever used smokeless tobacco? Never used smokeless tobacco [email or web address] Information not available 08/24/2022 What is your occupation? Retired [email or web address] Information not available 08/24/2022 Mental Status None recorded. Family History Nothing Reported Notes:stroke grandmother Medical History Condition Response Asthma Y Fibromyalgia Y Hypertension Y Gynecological HistoryNo gynecological history recorded. Obstetrics History GPAL:G 0 P 0 0 0 0 Past Encounters Encounter ID Performer Location Encounter Start Date Encounter Closed Date Diagnosis/Indication Diagnosis SNOMED-CT Code Diagnosis ICD10 Code Diagnosis Note [id number] Bruce Rich DO [facility] [address] [place] [address] 08/24/2022 15:16:08 08/24/2022 16:43:34 Chronic pain 13302043 G89.29 Degenerati on of cervical intervertebral disc 01003819 M50.30 Lumbar post-laminectomy syndrome 076935539 M96.1 Lumbar spondylosis 48630 0009 M47.896 Increased body mass index 53396255 E66.3 Patient was educated about healthy weight Tobacco us e cessation education 386394396 Z71.6 [id number] Bruce Rich DO [facility] [address],[facility] [address] [place] [address] 09/12/2022 13:36:19 09/12/2022 14:25:47 Lumbar spondylosis 626059131 M47.896 Degenerati on of cervical intervertebral disc 99161767 M50.30 Lumbar post-laminectomy syndrome 357845209 M96.1 Chronic pain 99023993 G8 9.29 Health Concerns Section Related Observation LastModified by Organization Detai ls LastModified Time None Recorded Concern Status LastModified by Organization Details LastModified Time None Recorded Advance Directives Directive None Recorded Payers Insurance Date Sequence Insurance Name Policy Number Policy Crawley Covered Member ID Crawley Member ID Guarantor Name 09/03/2023 1 [facility] (MEDICARE REPLACEMENT/A DVANTAGE - HMO) [facility] Sangita Umana [id number] Sangita Umana 09/03/2023 1 [facility] - DUAL ELIGIBLE (MEDICARE REPLACEMENT/A DVANTAGE - HMO) ALESSANDROELISE Umana [id number] Sangita Umana Notes Date Note Type Note [...] outside pain group since moving here from [place]. She completed a set of 3 cervical epidurals as well as several lumbar epidurals with benefit. She states she does not believe she has had injections since the winter. She had been on Belbuca [place] but states the stick puller has changed since she was here and has caused an increase in pain. She was then transition to Percocet 5 mg and was taking it 3 times daily. She states they have had a change in their providers and she is looking for an outside pain group as they will no longer continue [place] [address], [id number] [place] [address] 08/25/2022 11:39:12 09/12/2022 text/html Lumbar SpineReported bypatient.Location: [...] [facility] since moving here from [place]. She completed a set of 3 cervical epidurals as well as several lumbar epidurals with benefit. She had been on Belbuca with excellent [place] but states the stick puller has changed since she was here and [...] [place] [address], [place], [address], [facility] 09/12/2022 14:41:22 OBGyn Episode No OBEpisode recorded.
--- OUTSIDE RECORDS SUMMARY | 2024-09-11 13:21 | XMS_ITS | Continuity of Care Document ---
Author Organization [facility] Address [address] [place] [address] Phone Care Team Providers Care Videographer Name Role Phone Zainab Guzman MD Unavailable Unavailable Procedures Procedure Date Cancel Fee 1st Occurrence Advance Directives Directive Yes / No Effective Date File Name No Information Encounters Encounter Description Practice Location Reason(s) For Visit Diagnoses Date Provider Providers Copied on Encounter [facility], [address] [place], [id number], [place] tel:[phone] [address] [place] [address] No Information 3 Thomas Lamb. [facility] [employer] [place], [id number] , [place]. tel:[phone] Referring Provider: Zainab Guzman, [facility] [place], [address] . tel:[phone] Family History Family Member Type Diagnosis Age [...]
--- OUTSIDE RECORDS SUMMARY | 2024-09-11 13:21 | XMS_ITS | Clinical Summary ---
Author Organization [facility] Address [address] [place] [address] Care Team Providers Care Palliative Care Nurse Practitioner Name Role Phone Zainab Kaiser Primary Care Provider Source Comments PLEASE NOTE, if this patient [...] Primary hypertension 11/09/2023 Chronic obstructive pulmonary disease ([facility]) 11/09/2023 Chronic bilateral back pain 11/09/2023 Major depressive disorder 11/09/2023 Stage 3 chronic kidney disease ([facility]) 024 ISSAC (generalized anxiety disorder) 11/09/2023 Osteoarthritis [...] Description 09/18/2024 1:40 PM EDT Office Visit [facility] [address] [place] [id number] Zainab Kaiser PA [address] [place] [id number] Health Maintenance Due Date Last Done Comments Hepatitis C Screening 1957 Lipid Screening 1957 Tobacco Cessation Counseling (#1) 1957 Medicare Annual Wellness Visit 1975 Breast Cancer Screening (Mammogram) 1997 CT Colonography 2002 Colonoscopy 2002 Colorectal Cancer Screening 2002 FIT/gFOBT 2002 Fecal DNA 2002 Flexible Sigmoidoscopy 2002 Imm-Zoster, Recombinant (1 o f 2) 2007 Bone Density Screening 2022 Yyt-FLSGU-36 (2 - season) 2023 01/17/2021 Imm-Influenza (#1) 2023 Depression Monitoring 03/22/2024 12/21/2023 , 11/22/2023, 11/09/2023 Falls Prevention 11/08/2024 11/09/2023 Diabetes Screening 11/21/2026 11/22/2023 Imm-DTaP/Tdap/Td (2 - Td or Tdap) 06/09/2034 06/09/2024 Alcohol and Drug Screen Addressed 06/09/19, 11/09/2023 Overridden with the intention of not completing the topic Imm-Pneumococcal 65+ Completed 06/09/2024 Procedures Procedure Name Priority Date/Time Associated Diagnosis Comments COMPREHENSIVE METABOLIC PANEL Routine 11/22/2023 4:09 PM EDT Encounter for medication monitoring Stage 3 chronic kidney disease, unspecified whether stage 3a or 3b CKD ([facility]) from Last 3 Months or Most Recently Relevant to Health Maintenance Results * (ABNORMAL) COMPREHENSIVE METABOLIC PANEL (11/22/2023 4:09 PM EDT) GLUCOSE 82 65 - 99 mg/dL [facility] Comment: ?Fasting reference interval UREA NITROGEN (BUN) 27(H) 7 - 25 mg/dL [facility] CREATININE (blood) 1.57(H) 0.50 - 1.05 mg/dL [facility] EGFR 36(L) > OR = 60 mL/min/1. 73m2 [facility] BUN/CREATININE RATIO 17 6 - 22 (calc) [facility] SODIUM 138 135 - 146 mmol/L [facility] POTASSIUM 4.2 3.5 - 5.3 mmol/L [facility] CHLORIDE 102 98 - 110 mmol/L [facility] CARBON DIOXIDE 28 20 - 32 mmol/L [facility] CALCIUM 10.1 8.6 - 10.4 mg/dL [facility] PROTEIN, TOTAL 7.4 6.1 - 8.1 g/dL [facility] ALBUMIN 4.9 3.6 - 5.1 g/dL [facility] GLOBULIN 2.5 1.9 - 3.7 g/dL (calc) [facility] ALBUMIN/GLOBULI N RATIO 2.0 1.0 - 2.5 (calc) [facility] BILIRUBIN, TOTAL 0.7 0.2 - 1.2 mg/dL [facility] ALKALINE PHOSPHATASE 57 37 - 153 U/L [facility] AST 23 10 - 35 U/L [facility] ALT 18 6 - 29 U/L [facility] Blood Blood / Unknown 11/22/2023 4 :09 PM EDT 11/22/2023 4:09 PM EDT Narrative [facility] - 11/23/2023 10:52 AM EDT SPLIT 11/22/2023 FROM [id number] us Zainab [facility] - BLOOD DRAW Final Result [facility] [address] [address], [facility] [address] [address] from Last 3 Months or Most Recently Relevant to Health Maintenance Insurance [facility] MEDICARE COMPLETE [place] Care Teams Palliative Care Nurse Practitioner Relationship Specialty Start Date End Date Zainab Kaiser PA [facility] [place] [address] PCP - General Primary Care 09/14/23
== END 2024-09-11 12:40 | disposition home or self-care (01) ==
LOC: HO.MRI 12:39
PROVIDERS: PCP Student in an Organized Health Care Education/Training Program; Visit Provider Physician Assistant
DX: M50.90 Cervical disc disorder, unspecified, unspecified cervical region (principal)
CPT/HCPCS: 72141

== ENCOUNTER → 2024-09-11 12:50 | Outpatient (BNV) | payer OTHER, SELFPAY | PROVIDERS: PCP Student in an Organized Health Care Education/Training Program; Visit Provider Radiology Diagnostic Radiology | DX: M47.812 Spondylosis without myelopathy or radiculopathy, cervical region (principal); M99.61 Osseous and subluxation stenosis of intervertebral foramina of cervical region | CPT/HCPCS: 72141 ==

== ENCOUNTER 2024-09-25 14:24 | Outpatient (AMB) | payer OTHER, SELFPAY ==
--- OUTSIDE RECORDS SUMMARY | 2024-09-25 14:32 | XMS_ITS | Data Portability ---
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 [...] By Organization Details Last Modified Time 06/06/2018 [id number] deciding about using medicines to quit smoking [...] telem etry No observ ation record ed. [employer] [address], [place], [address], 06/28/2018 17:37:34 06/24/19 19 [place], echoc ardio gram No observ ation record ed. BARCODE Not Available 2018 18:52:06 Result Notes None recorded. Problems Name Problem SNOMED Code Status Onset Date Resolution Date Notes Provider Name and Address Organization Details Recorded Time Palpitati ons 03535833 Active 2017 Sena Kurt, RMA null, [facility] 8 12:57:03 Obesity 514809061 Active Sena Kurt, RMA null, [facility] 8 12:57:03 Degenerat ion of lumbar intervert ebral disc 38543094 Completed 03/14/2018 Sena Kurt, RMA null, [facility] 8 12:58:14 Visual disturban ce 70276765 Completed 201703/14/2018 Sena Kurt, RMA null, [facility] 8 12:57:44 Generaliz ed osteoarth ritis 765793674 Completed 03/14/2018 Sena Kurt, RMA null, [facility] 8 12:58:34 Intermitt ent palpitati ons 470889319 Active 2017 Sena Kurt, RMA null, [facility] 8 12:57:03 Depressiv e disorder 44539160 Active Sena Kurt, RMA null, [facility] 8 12:57:03 Chronic pain syndrome 305824852 Completed 03/14/2018 Sena Kurt, RMA null, [facility] 8 12:58:43 Mild memory disturban ce 686783478 Completed 201703/14/2018 Sena Kurt, RMA null, [facility] 8 12:58:23 Increased frequency of urination 451701126 Completed 201703/14/2018 Sena Kurt RMA null, [facility] 8 12:58:27 Carpal tunnel syndrome 20522918 Active Sena Kurt RMA null, [facility] 8 12:57:03 Long-term current use of opiate analgesic drug 094362912247 108 Active 2017 Sena Kurt, RMA null, [facility] 8 12:57:03 Asthma 635985443 Completed 03/14/2018 Sena Kurt, RMA null, [facility] 8 12:58:31 Mixed anxiety and depressiv e disorder 346152498 Completed 03/14/2018 Sena Kurt, RMA null, [facility] 8 12:58:37 Benign essential hypertens ion 9467930 Active Sena Kurt, RMA null, [facility] 8 12:57:03 Shoulder joint pain 316379897 Completed 03/14/2018 Sena Kurt, RMA null, [facility] 8 12:58:47 Cigarette smoker 96112378 Active Sena Kurt, RMA null, [facility] 8 12:57:03 Closed fracture of phalanx of foot 59410127 Completed 03/14/2018 Sena Kurt, RMA null, [facility] 8 12:57:39 Feeling nervous 573972132 Completed 03/14/2018 Sena Kurt, RMA null, [facility] 8 12:57:57 Osteopeni a 461177787 Completed 03/14/2018 Sena Kurt, RMA null, [facility] 8 12:58:01 Overweigh t 101339440 Completed 201703/14/2018 Sena Kurt, RMA null, [facility] 8 12:58:11 Degenerat ion of lumbosacr al intervert ebral disc 29997165 Completed 03/14/2018 ARVIND TapiaA null, [facility] 8 12:57:48 Gastroeso phageal reflux disease 093792417 Active Sena Hicks RMA null, [facility] 8 12:57:03 Menopausa l symptom 71118144 Completed 03/14/2018 ARVIND TapiaA null, [facility] 8 12:58:18 History of hepatitis C 183287980071 01 Completed 201703/14/2018 ARVIND TapiaA null, [facility] 8 12:57:36 Malaise and fatigue 756889288 Completed 201703/14/2018 ARVIND TapiaA null, [facility] 8 12:58:05 Problem Notes None recorded. Procedures Surgical History Date Name Laterality Status Provider Name and Address Organization Details Recorded Time 06/19/19 19 Echocardiogram completed Nida Reyes [facility] 06/24/2018 17:47:42 Other completed ARVIND TapiaA [facility] 02/18/2018 10:05:38 Other completed ARVIND TapiaA [facility] 02/18/2018 10:05:58 Other completed ARVIND TapiaA [facility] 02/18/2018 10:06:10 Cholecystectomy w/cholang completed ARVIND TapiaA [facility] 02/18/2018 10:06:30 Tubal Ligation completed ARVIND TapiaA [facility] 02/18/2018 14:35:35 Imaging Results None recorded. Procedure Notes None [...] Updated DateTime 9 152.4 cm 27.7 kg/m2 00151.1 2 g 70 /min 98 % 98 % 122 mm[Hg] 80 mm[Hg] Yohana Song [facility] 9 17:16:31 Social History Question Answer Notes LastModified by Organizat ion Details LastModified Time Tobacco Smoking Status Current Every Day Smoker SUNG Tapia, [facility] 02/18/2018 10:04:50 Do You Have An Advance [...] SNOMED-CT Code Diagnosis ICD10 Code Diagnosis Note [id number] ASHTYN Dyer [facility] [address] [facility] [place] [address] 05/05/2010 18:12:34 05/05/2010 19:18:30 [id number] Zena Ramirez MD [facility] [address] [place] [address] 05/10/2010 17:06:55 05/10/2010 18:50:11 [id number] Essence Knowles, DO [facility] [address] [place] [address] 05/31/2010 18:17:55 05/31/2010 19:23:28 [id number] Essence Knowles, DO [facility] [address] [place] [address] 10/04/2010 17:25:28 10/04/2010 18:04:57 [id number] Essence Knowles, DO [facility] [address] [facility] [place] [address] 10/26/2010 15:30:56 10/26/2010 16:47:04 [id number] Nakul Boland, DO [facility] [address] [facility] [place] [address] 12/19/2010 19:34:25 12/19/2010 20:13:27 [id number] Essence Knowles, DO [facility] [address] [place] [address] 03/17/2011 14:44:01 03/17/2011 15:31:54 [id number] Essence Knowles, DO [facility] [address] [place] [address] 06/01/2011 12:28:37 06/01/2011 13:54:09 [id number] SARAH Hines [facility] [address] [place] [address] 07/18/2012 19:08:12 07/19/2012 13:17:25 [id number] Essence Knowles, DO [facility] [address] [place] [address] 05/22/2013 16:22:52 05/23/2013 10:09:02 [id number] Essence Knowles, DO [facility] [address] [place] [address] 12/15/2013 18:32:26 12/15/2013 19:40:41 [id number] Essence Knowles, DO [facility] [address] [facility] [place] [address] 01/02/2014 10:53:17 01/02/2014 15:51:25 [id number] Essence Knowles, DO [facility] [address] [facility] [place] [address] 03/19/2014 15:04:03 03/19/2014 15:32:34 [id number] [facility], ORTHODONTIST VICE PRESIDENT [facility] [address] [facility] [place] [address] 05/10/2015 15:37:23 05/11/2015 11:24:05 [id number] [facility], ASHTYN [facility] [address] [facility] [place] [address] 07/13/2015 15:34:17 07/14/2015 12:42:51 [id number] Barby Rogel MD [facility] [address] [facility] [place] [address] 05/15/2016 17:34:06 05/15/2016 19:08:03 [id number] SAQIB Crow [facility] [address] [facility] [place] [address] 08/18/2016 19:13:26 08/21/2016 03:16:32 [id number] [facility] [address] [facility] [place] [address] 08/06/2017 16:20:46 08/06/2017 21:19:04 [id number] [facility], ORTHODONTIST VICE PRESIDENT [facility] [address] [place] [address] 02/11/2018 16:01:06 02/11/2018 21:36:59 [id number] Poonam Quinn MD [facility] [place] [facility] [address] [place] [address] 06/06/2018 16:55:47 06/10/2018 16:39:57 Overweight 682475457 E66.3 Diet: 1800 Calories Low Glycemic Diet Exercise: Work up to 30 min 5x/week as tolerated Electrocar diogram abnormal 880247246 R94.31 LVH Intermitte nt palpitations 130040040 R00.2 once per week last few seconds fast and regular for 4 to 5 beats for last 4- 5 yearsTSH normal Essential hypertension 56241355 I10 controlled with treatment Tobacco de pendence syndrome 52029773 F17.241 [id number] Poonam Quinn MD [facility] [place] [facility] [address] [place] [address] 06/19/2018 09:21:20 06/19/2018 10:16:22 Electrocardiogram abnormal 120333034 R94.31 LVH [id number] [facility] [address] [facility] [place] [address] 09/02/2018 16:58:51 09/03/2018 09:16:52 [id number] [facility], ORTHODONTIST VICE PRESIDENT [facility] [address] [facility] [address] 11/12/2018 15:01:58 11/12/2018 18:51:23 [id number] [facility], ORTHODONTIST VICE PRESIDENT [facility] [address] [place] [address] 11/29/2021 17:04:20 11/30/2021 06:58:32 [id number] [facility] [address] [place] [address] 12/15/2021 12:22:05 12/16/2021 08:34:45 [id number] Kai Davis MD [facility] [place] [address] [place] [address] 01/11/2022 16:24:26 01/11/2022 17:30:02 [id number] Kai Davis MD [facility] [place] [address] [place] [address] 02/21/2022 10:08:23 02/21/2022 14:16:00 [id number] [facility], ORTHODONTIST VICE PRESIDENT [facility] [address] [place] [address] 03/06/2022 17:54:38 03/07/2022 23:28:20 [id number] [facility], [facility] [address] [place] [address] 05/11/2022 15:06:18 05/12/2022 06:02:02 Health Concerns Section Related Observation LastModified by Organization Detai ls LastModified Time None Recorded Concern Status LastModified by Organization Details LastModified Time None Recorded Advance Directives Directive N: Payers Insurance Date Sequence Insurance Name Policy Number Policy Crawley Covered Member ID Crawley Member ID Guarantor Name 08/18/2022 2 [facility] ([place]PLAC[place] - [place]) Sangita Umana [id number] Sangita Umana 08/08/2022 1 [facility] (MEDICARE REPLACEMENT/A DVANTAGE - HMO) Sangita Umana [id number] Sangita Umana 08/18/2022 1 [facility] - DUAL ELIGIBLE (MEDICARE REPLACEMENT/A DVANTAGE - HMO) [facility] Sangita Umana [id number] Sangita Umana 08/08/2022 1 [place] Sangita Umana [id number] Sangita Umana 08/08/2022 1 [employer] - MEDICARE SOLUTIONS - AARP - MEDICARE COMPLETE (MEDICARE REPLACEMENT HMO) [id number] Sangita Grace Dong [id number] Sangita Sanjay Dong 08/08/2022 1 [facility] CARE PLAN OF [place] - [facility] (MEDICAID HMO) Sangita Sanjay Dong [id number] Sangita Sanjay Dong 08/08/2022 1 [facility] [place]ANT[place] (MEDICARE REPLACEMENT HMO) Sangita Sanjay Dong [id number] Sangita Sanjay Dong 08/08/2022 1 [facility] CARE [place] - DUAL ELIG[place] (MEDICARE - MEDICAID REPLACEMENT HMO) Sangita C Dong [id number] Sangita Sanjay Dong 08/08/2022 3 [facility] ([place] REPLACEMENT/A DVANTAGE - HMO) Sangita Sanjay Dong [id number] Sangita Sanjay Dong 08/08/2022 1 [facility] - DUAL ELIGIBLE (MEDICARE REPLACEMENT/A DVANTAGE - HMO) Sangita Umana [id number] Sangita Umana 08/08/2022 1 [facility] - [place] (MEDICARE REPLACEMENT/A DVANTAGE - HMO) [facility] Sangita Sanjay Dong [id number] Sangita C Dong 08/08/2022 2 [facility] CARE PLAN OF [place] - [facility] (MEDICAID HMO) Sangita Sanjay Dong [id number] Sangiat Sanjay Dong Notes Date Note Type Note Provider Name and Address Organization Details Recorded Time 06/06/2018 text/html PCM - Generic H PI 1Reported bypatient.Notes:Saqib nieto [...] or near [place] [address] [address] [facility] [place], [address], [facility] 06/06/2018 18:09:31 OBGyn Episode No OBEpisode recorded.
--- NOTE | 2024-09-25 15:01 | A.SPINEOV_ITS ---
Intake Visit Reasons: MRI f/u Intake Note: Ms. Umana is here today to F/u on her MRI. 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 Her cervical MRI done here at [place] shows that she has a severely collapsed disc at C5-6 amongst other degenerative discs. She also has moderate to severe stenosis at C5-6 with some questionable cord signal change. She does have neck pain with right arm pain that goes down into her thumb which would fit with the dermatomal distribution of C5-6. I showed her images to Dr. Casanova and we reviewed her x-rays that we did here today in the office as well. She has severe osteoporosis as we know and that is why she is not a surgical candidate for lumbar fusion, but the bones of the neck do seem to have enough integrity that he believes we could do an anterior cervical fusion C5-6 to treat the arm pain. I had a lengthy discussion with the patient about the distinction between neck pain and arm pain and surgical goal setting and the idea that this surgery would not be targeted to fix her neck pain because she has diffuse arthritis and that would be an extensive operation, but rather to have a very focused target at C5- 6 to help the arm pain and radiculopathy. The patient would like to think about the surgery and get back to me. We did review all pertinent risks benefits etc.. With regard to her lumbar spine, she is still interested in having some epidural injections or being considered for injections at least. I do not know she is a candidate because of her osteoporosis. She does follow up with the pain management team here at [place]. She can go back to see them if she wishes to talk about this again. From our standpoint, she is not a surgical candidate for lumbar fusion to treat her back pain. Total amount of time spent in this visit was 20 minutes in discussion of symptoms, cervical and lumbarimaging results and subsequent plan of care Shola Casanova MD,PhD [facility] Orders: Orders XR cervical spine 4V Today M50.90 - Cervical disc disorder, unspecified, unspecified cervical region Coding Level of Care Code Est Pt Level 3 (20877) Diagnoses Cervical disc disorder M50.90
== END 2024-09-25 16:13 | disposition home or self-care (01) ==
LOC: HO.HNS 14:25
PROVIDERS: PCP Student in an Organized Health Care Education/Training Program; Visit Provider Physician Assistant
DX: M50.90 Cervical disc disorder, unspecified, unspecified cervical region (principal)
CPT/HCPCS: 99213

== ENCOUNTER 2024-09-25 14:24 | Outpatient (REF) | payer OTHER, SELFPAY ==
--- NOTE | ~2024-09-25 | XR_ITS ---
CLINICAL HISTORY: M50.90 - Cervical disc disorder, unspecified, unspecified cervical region --- Addit ional Notes or Special Instructions: a p, lateral with flex ext views 5 views cervical spine Comparison: None Findings: Normal vertebral body alignment. Alignment is maintained with flexion and extension positioning. No acute fractures or dislocation. Multiple level degenerative disc, facet, and uncovertebral joint change Prevertebral soft tissues within normal limits. IMPRESSION: No acute findings. This document has been electronically signed by: Nikunj Metz MD on 09/27/2024 09:26:34
== END 2024-09-25 14:25 | disposition home or self-care (01) ==
LOC: HO.HOSX 14:24
PROVIDERS: PCP Student in an Organized Health Care Education/Training Program; Visit Provider Physician Assistant
DX: M50.90 Cervical disc disorder, unspecified, unspecified cervical region (principal)
CPT/HCPCS: 72050; 99212

== ENCOUNTER → 2024-09-25 15:36 | Outpatient (BNV) | payer OTHER, SELFPAY | PROVIDERS: PCP Student in an Organized Health Care Education/Training Program; Visit Provider Specialist | DX: M50.90 Cervical disc disorder, unspecified, unspecified cervical region (principal) | CPT/HCPCS: 72050 ==

== ENCOUNTER 2024-09-30 14:04 | Outpatient (AMB) | payer OTHER, SELFPAY ==
--- NOTE | 2024-09-30 14:35 | AM.OFFVISNUR ---
Intake Visit Reasons: Evenity #2 Allergies NSAIDS (Non-Steroidal Anti-Inflamma Adverse Reaction (Mild, Verified 09/08/24 14:00) contraindicated w/ CKD Office Meds romosozumab-aqqg 210 mg/2.34 mL(105 mg/1.17 mL x2)subcutaneous syringe Performing Provider: Nick Nolasco MD Performing Location: [facility] [place] [facility] Administered by: Anna Phillips RN on 09/30/24 14:35 Dose Route Admin Location Dispensed Lot Number Expiration Date [facility] 210 mg subcut bilateral upper arms 2.34 mL [id number] 11/27/26 91920-280-63 AMGEN Comments: Pt tolerated injection well. No adverse reactions reported from previous injection. Pt scheduled in 4 weeks for Evenity #3. Assessment & Plan Assessment & Plan Orders: Orders AMB Romosozumab Injection Patient Supplied Today M81.0 - Age-related osteoporosis without current pathological fracture Medications: New romosozumab-aqqg 210 mg (2.34 mL) subcut ONCE 2.34 mL 0RF M81.0 - Age-related osteoporosis without current pathological fracture Coding
--- OUTSIDE RECORDS SUMMARY | 2024-09-30 15:53 | XMS_ITS | Continuity of Care Document ---
Author Organization [facility] ter Address [address] [place] [address] Phone Care Team Providers Care Application Integration Engineer Name Role Phone Zainab Guzman MD Unavailable Unavailable Procedures Procedure Date Cancel Fee 1st Occurrence Advance Directives Directive Yes / No Effective Date File Name No Information Encounters Encounter Description Practice Location Reason(s) For Visit Diagnoses Date Provider Providers Copied on Encounter [facility], [address] [place], [id number], [place] tel:[phone] [address] [place] [address] No Information 3 Thomas Lamb. [facility] [employer] [place], [place], [id number] , [place]. tel:[phone] Referring Provider: Zainab Guzman, [facility] [place], [address] . tel:[phone] Family History Family Member Type Diagnosis Age [...]
== END 2024-09-30 14:34 | disposition home or self-care (01) ==
LOC: HO.ENCR 14:06
PROVIDERS: PCP Student in an Organized Health Care Education/Training Program; Visit Provider Internal Medicine Endocrinology, Diabetes & Metabolism
DX: M81.0 Age-related osteoporosis without current pathological fracture (principal)

== ENCOUNTER → 2024-09-30 14:04 | Outpatient (BNVA) | payer OTHER, SELFPAY | PROVIDERS: PCP Student in an Organized Health Care Education/Training Program; Visit Provider Internal Medicine Endocrinology, Diabetes & Metabolism | DX: M81.0 Age-related osteoporosis without current pathological fracture (principal) | CPT/HCPCS: 96372; J3111 ==

== ENCOUNTER 2024-10-01 13:28 | Outpatient (AMB) | payer OTHER, SELFPAY ==
--- NOTE | 2024-10-01 13:41 | A.OFFVIS_ITS ---
Vital Signs 10/01/24 13:53 Height 4 ft 10 in Weight 134 lb 0.657 oz BMI 28.0 BP 140/78 H Blood Pressure Location Lt brachial Position Sitting Pulse 72 Pulse Source Pulse Oximeter Pulse Oximetry (%) 97 Oxygen Delivery Method Room Air Intake Visit Reasons: diarrhea Intake Note: Established patient for mgmt of IBS-D. CC; Pt reports that she is still doing well with the current treatment plan. No current GI sx or concerns. Pt reports multiple ortho concerns and that she has been out of her BP meds x3 weeks and her PCP has not been able to fill them. 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 She did discover that she had less toileting troubles when she stopped drinking coffee in the morning. She did well in the past on imodium but her only objection is that it is expensive to buy OTC. I will see if insurance will cover it as this would be a good place to start with medications. Her diarrhea is worse with milk, meat and some veggies as well as coffee. She continues to perseverate on her chronic widespread body and back pain. She says I'm used to having a lot of medications for pain and now no one will give them to me because of my liver and kidney problems. This likely is opiates, and she may have some element of opiate diarrhea from jail remodeling of the spinal column. ROV next available. Medications: New loperamide (Imodium A-D) 2 mg PO QID 90 caps 6RF loose stool K91.5 - Postcholecystectomy syndrome, R19.7 - Diarrhea, unspecified Discontinued sucralfate (Carafate) Discontinued Reason: Doctor's Order 2 grams (2 x 1 gram) PO QNOON 60 tabs 6RF K91.5 - Postcholecystectomy syndrome TODAYS VISIT She is taking imodium before bed and this resolves her AM diarrhea. Insurance is covering it and she is happy with this. Her only c/o is of wt gain since starting gabapentin. She seems very confused about her past dx of Hep C and she was told I have chronic liver disease. This is not true, as she has no viral load and recent fibrosis panel is unconcerning, so I reassure her. Her liver fxn is quite normal. Her imaging likewise is quite normal. Return office visit in 6 months [facility] Medical History Encounter for general adult medical examination without abnormal findings Liver disease Polyarthralgia Lumbar degenerative disc disease ISSAC (generalized anxiety disorder) HTN (hypertension) Chronic back pain Renal stones Surgical History History of left knee replacement History of left hip replacement Hx of section S/P cholecystectomy H/O laminectomy Family History Mother Colitis Maternal Uncle Cancer Family/Other Cancer Social History Household Members: Other Household Members Other:: Roommate x1 Housing: Other Housing Other:: Roommate 75 years or older and lives alone: No Alcohol intake: former 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 Patient Tobacco Use Status: Current everyday Tobacco user Tobacco use type: Cigarette Cigarettes Per Day: 6 Years Smoked: 40 e-Cigarette/Vaping Use: Currently Using Substance Use Type: Marijuana service: No Current occupational status: disabled Current occupational exposures/hazards: No Sexual orientation: Straight/Heterosexual Gender identity: Female Cognitive needs: No Hearing needs: No Vision needs: Yes Review of Systems Const Denies fatigue, Denies fever(s), Denies night sweats, Denies poor appetite, Reports weight gain and Denies weight loss Eyes Details: glasses Reports requires corrective lenses ENT Reports Normal hearing present, Denies dental pain, Denies dysphagia, Denies hearing loss, Denies mouth pain, Reports neck pain, Denies odynophagia, Denies throat swelling, Denies tongue swelling and Reports other (Dentition adequate) Card Reports no additional complaints Resp Reports no additional complaints GI Details: Denies abdominal pain, Denies melena, Denies bloating, Denies hematochezia, Denies constipation, Denies GI cramping, Denies dysphagia, Denies excessive flatus, Denies early satiety, Denies heartburn, Reports diarrhea, Denies nausea, Denies odynophagia, Denies vomiting and Denies hematemesis Musc Reports back pain, Reports myalgias, Reports arthralgias, Reports neck pain, Re ports radiating pain into limb and Reports stiffness Skin/Breast Denies pruritus, Denies lesions, Denies rash and Denies jaundice Neuro Reports Normal hearing present and Denies Abnormal speech present Psych Reports anxiety Endo Denies fatigue Aller/Immun Denies throat swelling and Denies tongue swelling Physical Exam Vital Signs: Last Vital Signs Pulse 72 10/01/24 13:53 BP 140/78 H 10/01/24 13:53 Pulse Ox 97 10/01/24 13:53 Oxygen Delivery Method Room Air 10/01/24 13:53 BMI result Body Mass Index 28.0 Const General: cooperative, no acute distress, well developed and well groomed Nutritional Appearance: average body habitus and well nourished Orientation/consciousness: oriented to person, oriented to place and oriented to time Limitations: No language barrier HEENT Head: Yes normocephalic and Yes atraumatic Eyes General: appearance normal, both eyes and all related structures Pupils: Equal, round and reactive pupils present Neck Neck: Yes normal visual inspection and Yes no lymphadenopathy Thyroid: Thyroid normal Resp Effort & Inspection: normal respiratory effort and able to speak in complete sentences Auscultation: clear to auscultation bilaterally Cardio Rate: regular rate Rhythm: regular rhythm Heart sounds: Normal, physiologic split S2 sound present Peripheral pulses: radial pulses present and posterior tibial pulses present GI Inspection: No distended and No Abdominal panniculus present Palpation (GI): Soft to palpation, nontender, no guarding, not rigid and No hepatosplenomegaly present Percussion: Yes normal to percussion Auscultation: normal bowel sounds Rectal Exam - Female: deferred Skin General skin exam: no rashes or lesions noted, turgor normal, skin not dry, no jaundice, No spider nevi and no striae Rashes: no rashes Nails: normal Neuro General: oriented to person, oriented to place and oriented to time Cranial nerves: Yes Equal, round and reactive pupils present and Yes Normal hearing present Speech: No Abnormal speech present Extrem General: Yes normal to inspection, No clubbing, No cyanosis and No edema Psych Appearance: grossly normal and well kempt Mental Status: mental status grossly normal Speech and movement: Normal speech and movement present Affect: normal affect Attitude: cooperative Thought process: Normal thought process present and not confabulating Thought content: Normal thought content present Insight: Limited insight present (Psych) Judgement: Limited judgement present (Psych) Assessment & Plan Assessment & Plan (1) Post-cholecystectomy syndrome: Code(s): K91.5 - Postcholecystectomy syndrome Category: Medical (2) Diarrhea: Code(s): R19.7 - Diarrhea, unspecified Category: Medical Plan She is taking imodium before bed and this resolves her AM diarrhea. Insurance is covering it and she is happy with this. Her only c/o is of wt gain since starting gabapentin. She seems very confused about her past dx of Hep C and she was told I have chronic liver disease. This is not true, as she has no viral load and recent fibrosis panel is unconcerning, so I reassure her. Her liver fxn is quite normal. Her imaging likewise is quite normal. Return office visit in 6 months Coding Level of Care Code Est Pt Level 3 (67420) Diagnoses Post-cholecystectomy syndrome K91.5 Diarrhea R19.7
--- OUTSIDE RECORDS SUMMARY | 2024-10-01 13:43 | XMS_ITS | Continuity of Care Document ---
Author Organization [facility] ter Address [address] [place] [address] Phone Care Team Providers Care Color Grinder Name Role Phone Zainab Guzman MD Unavailable Unavailable Procedures Procedure Date Cancel Fee 1st Occurrence Advance Directives Directive Yes / No Effective Date File Name No Information Encounters Encounter Description Practice Location Reason(s) For Visit Diagnoses Date Provider Providers Copied on Encounter [facility], [address] [place], [id number], [place] tel:[phone] [place] [address] No Information 3 Thomas Lamb. [facility] [email or web address] [place], [place], [id number] , [place]. tel:[phone] Referring Provider: Zainab Guzman, [facility] [email or web address], [address] . tel:[phone] Family History Family Member Type Diagnosis Age At Onset No Information Payers Payer name Insurance type Covered republican ID Authoriza tion(s) No Information Social History [...]
[2024-10-01 13:53] VITALS: BP 140/78; PULSE 72; O2SAT 97; BMI 28.0
== END 2024-10-01 14:35 | disposition home or self-care (01) ==
LOC: HO.HGI 13:32
PROVIDERS: PCP Nurse Practitioner Family; Visit Provider Nurse Practitioner
DX: K91.5 Postcholecystectomy syndrome (principal); R19.7 Diarrhea, unspecified
CPT/HCPCS: 99213

== ENCOUNTER → 2024-10-01 13:28 | Outpatient (BNVA) | payer OTHER, SELFPAY | PROVIDERS: PCP Nurse Practitioner Family; Visit Provider Nurse Practitioner | DX: K91.5 Postcholecystectomy syndrome (principal); R19.7 Diarrhea, unspecified | CPT/HCPCS: 99212 ==

== ENCOUNTER 2024-10-29 13:54 | Emergency (ER) | payer OTHER, SELFPAY ==
--- NOTE | ~2024-10-29 | XR_ITS ---
EXAMINATION: XR HIP 1 VIEW RIGHT WITH PELVIS HISTORY: fall COMPARISON: Comparison is made with the prior examination dated 09/18/2023. FINDINGS: A single AP view of the pelvis and two views of the right hip are submitted. Osseous mineralization is normal. There is no fracture or dislocation. The right hip joint space is maintained. The patient is status post left total hip arthroplasty. The soft tissues are unremarkable. XR/XR hip RT w PEL1V IMPRESSION: No evidence of fracture of the right hip. Electronically signed by: Nick Salinas MD 10/29/2024 02:51 PM EDT
--- NOTE | ~2024-10-29 | XR_ITS ---
EXAMINATION: XR KNEE, RIGHT CLINICAL INFORMATION: fall COMPARISON: None available. TECHNIQUE: 4 views of the right knee. FINDINGS: There is mild loss of tricompartment joint space with minimal suprapatellar joint effusion. No loose bodies seen. There is intrapatellar and lateral compartment spurring. No acute fracture or dislocation no lytic or sclerotic process. XR/XR knee RT 3V IMPRESSION: Mild degenerative changes of the tricompartment with lateral compartment infrapatellar spurring. No acute fracture or dislocation seen. Electronically signed by: Jerson Robles MD 10/29/2024 03:02 PM EDT
--- NOTE | ~2024-10-29 | XR_ITS ---
EXAMINATION: XR ANKLE, RIGHT CLINICAL INFORMATION: fall COMPARISON: None available. TECHNIQUE: AP, lateral, and mortise views of the right ankle. FINDINGS: The ankle mortise and subtalar joints are normal. There is no visible acute fracture or dislocation. Mild intertarsal dorsal spurring. There is soft tissue calcification along posterior Achilles tendon likely old injury. XR/XR ankle RT min 3V IMPRESSION: No acute fracture or dislocation. Soft tissue calcification along the posterior Achilles tendon likely old injury. Mild intertarsal dorsal spurring.. Electronically signed by: Jerson Robles MD 10/29/2024 02:57 PM EDT
[2024-10-29 14:05] VITALS: BP 136/82; PULSE 64; O2SAT 96
[2024-10-29 14:08] VITALS: BP 168/56; PULSE 63; RESP 18; TEMP 36.1; O2SAT 97; BMI 27.6
--- NOTE | 2024-10-29 14:10 | ED.GENADULT ---
HPI - General Adult General Chief complaint: Extremity Injury, Lower Stated complaint: TWISTED ANKLE T-1,KNEE/HIP/ANKLE SWELLING TODAY Time Seen by Provider: 10/29/24 15:14 Source: patient, RN notes reviewed and old records reviewed Mode of arrival: EMS Limitations: physical limitation History of Present Illness ED Provider: Charo HPI narrative: 69-year-old female presents for evaluation of right leg pain. Patient reports that she is moving furniture because she is moving to a new apartment this Sunday. She reports that last night she tripped in the hallway injuring her right leg from her ankle all the way up to her hip. Her pain is 10/10 She took gabapentin this morning without improvement. She reports that she is unable to bear weight on that side. Denies any fevers, chills Related Data Home Medications ?Medication ?Instructions ?Recorded ?Confirmed acetaminophen 650 mg 650 mg PO Q12H 12/27/23 09/08/24 tablet,extended release (Tylenol Arthritis Pain) gabapentin 100 mg capsule 100 mg PO TID 12/27/23 09/08/24 tizanidine 2 mg capsule 2 mg PO Q8H PRN 12/27/23 09/08/24 Previous Rx's ?Medication ?Instructions ?Recorded budesonide-formoterol HFA 160 2 inh inhalation BID #10.2 grams 08/20/23 mcg-4.5 mcg/actuation aerosol inhaler (Symbicort) diclofenac sodium 1 % topical gel 2 g topical QID PRN pain #100 grams 08/20/23 ipratropium 0.5 mg-albuterol 3 mg 3 ml inhalation Q6H PRN shortness 10/02/23 (2.5 mg base)/3 mL nebulization of breath or wheezing #180 mL soln metoprolol succinate 25 mg 25 mg PO DAILY #90 tabs 11/12/23 tablet,extended release 24 hr albuterol sulfate 90 mcg/actuation 2 puff inhalation Q4H PRN 01/25/24 aerosol inhaler shortness of breath or wheezing #8.5 grams montelukast 10 mg tablet 10 mg PO DAILY #90 tabs 02/27/24 amlodipine 5 mg tablet 5 mg PO DAILY #30 tabs 06/03/24 romosozumab-aqqg 210 mg/2.34 210 mg (2.34 mL) subcut .qmo #2.34 07/22/24 mL(105 mg/1.17 mL x2)subcutaneous mL syringe (Evenity) loperamide 2 mg capsule (Imodium 2 mg PO QID loose stool #90 caps 07/24/24 A-D) duloxetine 60 mg capsule,delayed 60 mg PO DAILY #90 caps 08/18/24 release oxycodone 5 mg tablet 5 mg PO Q6H PRN pain #12 tabs 10/29/24 Allergies Allergy/AdvReac Type Severity Reaction Status Date / Time NSAIDS (Non-Steroidal AdvReac Mild contraindicated Verified 10/29/24 14:13 Anti-Inflamma w/ CKD Review of Systems Constitutional: Constitutional: Denies body ache(s), Denies chills and Denies fever(s) Cardiovascular: Cardiovascular: Denies chest pain and Denies dyspnea on exertion Respiratory: Respiratory: Denies cough and Denies dyspnea on exertion Gastrointestinal: Gastrointestinal: Denies abdominal pain Musculoskeletal: Musculoskeletal: Reports arthralgias, Reports joint swelling and Reports limited range of motion Integumentary/Breasts: Skin/Breast: Denies rash Psychiatric: Psychiatric: Denies anxiety PMFSH Past Medical History Medical History Encounter for general adult medical examination without abnormal findings Liver disease Polyarthralgia Lumbar degenerative disc disease ISSAC (generalized anxiety disorder) HTN (hypertension) Chronic back pain Renal stones Surgical History History of left knee replacement History of left hip replacement Hx of section S/P cholecystectomy H/O laminectomy Family History Family History Mother Colitis Maternal Uncle Cancer Family/Other Cancer Social History Social History Household Members: Other Household Members Other:: Roommate x1 Housing: Other Housing Other:: Roommate Alcohol intake: former 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 Patient Tobacco Use Status: Current everyday Tobacco user Tobacco use type: Cigarette Cigarettes Per Day: 6 Years Smoked: 40 Smoked in Last 30 Days: Yes e-Cigarette/Vaping Use: Currently Using Substance Use Type: Marijuana Substance Use Frequency: Daily Do you have a plan to hurt others: No Plan service: No Current occupational status: disabled Current occupational exposures/hazards: No Sexual orientation: Straight/Heterosexual Gender identity: Female Cognitive needs: No Hearing needs: No Vision needs: Yes Physical Exam ED Vital Signs: Vital Signs - 24 hr 10/29/24 14:08 Temperature 96.9 F Pulse Rate 63 Respiratory Rate 18 Blood Pressure 168/56 H Pulse Oximetry 97 Oxygen Delivery Method Room Air BMI result Body Mass Index 27.6 Const General: healthy appearing, comfortable, no acute distress, alert and awake Nutritional Appearance: well nourished Orientation/consciousness: patient oriented x3 HENMT Head: Yes normocephalic and Yes atraumatic Eyes Eyelids: Yes eyelids normal Conjunctivae: conjunctivae normal Sclerae: sclerae normal Corneas: corneas normal Pupils: Equal, round and reactive pupils present EOM: EOMs intact bilaterally Neck Neck: Yes full ROM Resp Effort & Inspection: normal respiratory effort, able to speak in complete sentences and not labored Skin General skin exam: elasticity normal Neuro General: patient oriented x3 Cranial nerves: Yes CN's II-XII intact bilaterally, Yes Equal, round and reactive pupils present and Yes Bilaterally intact EOM present Cognition (Neuro): normal cognition Extrem Other: There was no obvious visual or palpable deformity to the right lower extremity from the hip to the knee or ankle. There is no significant edema. The patient is globally tender to the right lower extremity. No calf swelling. No palpable cords. Course Course Course Narrative: RME, this is a rapid medical exam performed by Kurt Mancilla please refer to primary provider for complete H&P- 69-year-old female presents for evaluation of right leg pain. She reports tripping and falling last night. She has pain from her right hip to her right ankle. Plan for x-rays Medications Administered Discontinued Medications Generic Name Dose Route Start Last Admin Trade Name Freq PRN Reason Stop Dose Admin Morphine Sulfate 4 mg 10/29/24 15:31 10/29/24 15:38 Morphine Sulfate 4 Mg/Ml Cartridge IM 10/29/24 15:32 4 mg ONCE ONE Administration Protocol Ondansetron HCl 4 mg 10/29/24 15:31 10/29/24 15:44 Ondansetron Odt 4 Mg Tab.Rapdis TRANSLINGU 10/29/24 15:32 Not Given ONCE ONE Medical Decision Making Medical Decision Making [facility] Narrative: 69-year-old female presents for evaluation of right lower extremity pain. She reports twisting the leg and falling last night. She reports being unable to bear weight. X-rays of the right hip, knee, ankle are negative for fracture. I discussed possible options with the patient, she does have severe arthritis. Given that she has underwent the bear weight on it offered physical therapy and case management evaluation for possible rehab placement. The patient reports that this is not an option as she is moving in 3 days. We will treat her pain with morphine 4 mg IM and re-evaluate. Differential Diagnosis Differential Diagnoses: The differential diagnosis associated with the presentation includes Osteoarthritis Contusion Right leg pain Fracture of the hip Ankle fracture Radiology Impression Discussion of test interpretation with radiology: I have reviewed the radiologist's reading. Radiologist Impression: FINDINGS: The ankle mortise and subtalar joints are normal. There is no visible acute fracture or dislocation. Mild intertarsal dorsal spurring. There is soft tissue calcification along posterior Achilles tendon likely old injury. XR/XR ankle RT min 3V IMPRESSION: No acute fracture or dislocation. Soft tissue calcification along the posterior Achilles tendon likely old injury. Mild intertarsal dorsal spurring.. Electronically signed by: Jerson Robles MD 10/29/2024 02:57 PM EDT [facility]ve[facility] FINDINGS: There is mild loss of tricompartment joint space with minimal suprapatellar joint effusion. No loose bodies seen. There is intrapatellar and lateral compartment spurring. No acute fracture or dislocation no lytic or sclerotic process. XR/XR knee RT 3V IMPRESSION: Mild degenerative changes of the tricompartment with lateral compartment infrapatellar spurring. No acute fracture or dislocation seen. Electronically signed by: Jerson Robles MD 10/29/2024 03:02 PM EDT [facility] FINDINGS: A single AP view of the pelvis and two views of the right hip are submitted. Osseous mineralization is normal. There is no fracture or dislocation. The right hip joint space is maintained. The patient is status post left total hip arthroplasty. The soft tissues are unremarkable. XR/XR hip RT w PEL1V IMPRESSION: No evidence of fracture of the right hip. Electronically signed by: Nick Salinas MD 10/29/2024 02:51 PM EDT RP Discharge Plan Discharge Clinical Impression: Acute pain of right lower extremity Patient Disposition: Home, Self-Care Instructions: Leg Pain (ED) Additional Instructions: Your x-ray showed arthritis of the right knee. There were no fractures You may use Tylenol for pain. Use oxycodone for more severe, breakthrough pain This may make you drowsy, do not drink alcohol or drive after taking it Prescriptions: New oxycodone 5 mg tablet 5 mg PO Q6H PRN (Reason: pain) Qty: 12 0RF Rx Instructions: Partial Fill upon patient request. No Action ipratropium-albuterol 0.5 mg-3 mg(2.5 mg base)/3 mL solution for nebulization 3 ml inhalation Q6H PRN (Reason: shortness of breath or wheezing) Qty: 180 0RF metoprolol succinate 25 mg tablet extended release 24 hr 25 mg PO DAILY Qty: 90 0RF albuterol sulfate 90 mcg/actuation HFA aerosol inhaler 2 puff inhalation Q4H PRN (Reason: shortness of breath or wheezing) Qty: 8.5 1RF montelukast 10 mg tablet 10 mg PO DAILY Qty: 90 2RF amlodipine 5 mg tablet 5 mg PO DAILY Qty: 30 6RF duloxetine 60 mg capsule,delayed release(DR/EC) 60 mg PO DAILY Qty: 90 1RF diclofenac sodium 1 % gel 2 g topical QID PRN (Reason: pain) Qty: 100 3RF Rx Instructions: apply to joints as needed. budesonide-formoterol [Symbicort] 160-4.5 mcg/actuation HFA aerosol inhaler 2 inh inhalation BID Qty: 10.2 6RF acetaminophen [Tylenol Arthritis Pain] 650 mg tablet extended release 650 mg PO Q12H tizanidine 2 mg capsule 2 mg PO Q8H PRN gabapentin 100 mg capsule 100 mg PO TID loperamide [Imodium A-D] 2 mg capsule 2 mg PO QID Qty: 90 6RF Evenity 210mg/2.34mL ( 105mg/1.17mLx2) syringe 210 mg subcut .qmo Qty: 2.34 11RF Print Language: Lithuanian
--- OUTSIDE RECORDS SUMMARY | 2024-10-29 16:44 | XMS_ITS ---
Author Name [facility] Organization Unknown Encounters Encounter Type Encounter Reason Primary Diagnosis Location Date Emergency Shortness of breath [facility] 12/12/2022 Care Team Organization Name Specialty Phone Email Start Date End Da te [facility] 01/05/2023 12/17/2023 Day [facility] 12/13/2022 06/08/2024 Day [facility] 12/12/2022 12/12/2022
--- OUTSIDE RECORDS SUMMARY | 2024-10-29 16:44 | XMS_ITS | Data Portability ---
Author Organization [place] - [facility], autoContract - [facility] Address [address] [place] [address] Care Team Providers Care Restaurant Assistant Name Role Phone REBECCA ESCALONA OTHER DANIIRA MARIA OTHER Assessment No assessment recorded. Plan of [...] By Organization Details Last Modified Time 06/06/2018 [id number] deciding about using medicines to quit smoking Not available 06/06/2018 17:23:29 Quitting Tobacco : Care Instructions Not available 06/06/2018 17:23:29 eating healthy foods: care instructions Not available 06/06/2018 17:22:32 high blood pressure: care instructions Not available 06/06/2018 17:22:32 Reason for Referral None Reported. Results Created Date Observation Date Name Description Value Unit Range Abnormal Flag Note LastModifiedBy Organization Detail LastModifiedTime 06/06/19 19 elect teresa diogr am No observ ation record ed. Not Available 2018 18:44:44 06/19/19 19 US, echoc ardio gram No observ ation record ed. BARCODE Not Available 2018 10:19:56 06/21/19 19 06/19/2018 cardi ac telem etry No observ ation record ed. [facility] [address], [place], [address], 06/28/2018 17:37:34 06/24/19 19 US, echoc ardio gram No observ ation record ed. BARCODE Not Available 2018 18:52:06 Result Notes None recorded. Problems Name Problem SNOMED Code Status Onset Date Resolution Date Notes Provider Name and Address Organization Details Recorded Time Palpitati ons 88708302 Active 2017 Sena Kurt, RMA null, [facility] 8 12:57:03 Obesity 007458830 Active Sena Kurt, RMA null, [facility] 8 12:57:03 Degenerat ion of lumbar intervert ebral disc 62633629 Completed 03/14/2018 Sena Kurt, RMA null, [facility] 8 12:58:14 Visual disturban ce 06069338 Completed 201703/14/2018 Sena Kurt, RMA null, [facility] 8 12:57:44 Generaliz ed osteoarth ritis 150743306 Completed 03/14/2018 Sena Kurt, RMA null, [facility] 8 12:58:34 Intermitt ent palpitati ons 207922125 Active 2017 Sena Kurt, RMA null, [facility] 8 12:57:03 Depressiv e disorder 76483568 Active Sena Kurt, RMA null, [facility] 8 12:57:03 Chronic pain syndrome 332685254 Completed 03/14/2018 Sena Kurt, RMA null, [facility] 8 12:58:43 Mild memory disturban ce 097432870 Completed 201703/14/2018 Sena Kurt, RMA null, [facility] 8 12:58:23 Increased frequency of urination 260455344 Completed 201703/14/2018 Sena Kurt, RMA null, [facility] 8 12:58:27 Carpal tunnel syndrome 97353563 Active Sena Kurt RMA null, [facility] 8 12:57:03 Long-term current use of opiate analgesic drug 695274735410 108 Active 2017 Sena Kurt, RMA null, [facility] 8 12:57:03 Asthma 278336870 Completed 03/14/2018 Sena Kurt, RMA null, [facility] 8 12:58:31 Mixed anxiety and depressiv e disorder 114833610 Completed 03/14/2018 Sena Kurt, RMA null, [facility] 8 12:58:37 Benign essential hypertens ion 0922686 Active Sena Kurt, RMA null, [facility] 8 12:57:03 Shoulder joint pain 414368453 Completed 03/14/2018 Sena Kurt, RMA null, [facility] 8 12:58:47 Cigarette smoker 28270713 Active Sena Kurt, RMA null, [facility] 8 12:57:03 Closed fracture of phalanx of foot 88562925 Completed 03/14/2018 Sena Kurt, RMA null, [facility] 8 12:57:39 Feeling nervous 991848099 Completed 03/14/2018 Sena Kurt, RMA null, [facility] 8 12:57:57 Osteopeni a 512856542 Completed 03/14/2018 Sena Kurt, RMA null, [facility] 8 12:58:01 Overweigh t 235302375 Completed 201703/14/2018 Sena Kurt, RMA null, [facility] 8 12:58:11 Degenerat ion of lumbosacr al intervert ebral disc 71458401 Completed 03/14/2018 ARVIND TapiaA null, [facility] 8 12:57:48 Gastroeso phageal reflux disease 195408858 Active Sena Hicks RMA null, [facility] 8 12:57:03 Menopausa l symptom 27331230 Completed 03/14/2018 [facility]18 History of hepatitis C 797171942962 Completed 201703/14/2018 [facility] 12:57:36 Malaise and fatigue 077339520 Completed 201703/14/2018 Sena Hicks RMA null, [facility] 8 12:58:05 Problem Notes None recorded. Procedures Surgical History Date Name Laterality Status Provider Name and Address Organization Details Recorded Time 06/19/19 19 Echocardiogram completed Nida Reyes [facility] 06/24/2018 17:47:42 Other completed ARVIND TapiaA [facility] 02/18/2018 10:05:38 Other completed ARVIND TapiaA [facility] 02/18/2018 10:05:58 Other completed ARVIND TapiaA [facility] 02/18/2018 10:06:10 Cholecystectomy w/cholang completed ARVIND TapiaA [facility] 02/18/2018 10:06:30 Tubal Ligation completed ARVIND TapiaA [facility] 02/18/2018 14:35:35 Imaging Results None recorded. Procedure [...] Updated DateTime 9 152.4 cm 27.7 kg/m2 77701.1 2 g 70 /min 98 % 98 % 122 mm[Hg] 80 mm[Hg] Yohana Song [facility] 9 17:16:31 Social History Question Answer Notes LastModified by Organizat ion Details LastModified Time Tobacco Smoking Status Current Every Day Smoker SUNG Tapia, [facility] 02/18/2018 10:04:50 Do You Have An [...] SNOMED-CT Code Diagnosis ICD10 Code Diagnosis Note [id number] Ashtyn [place], PRODUCTION ADMINISTRATIVE ASSISTANT [facility] [address] [facility] [place] [address] 05/05/2010 18:12:34 05/05/2010 19:18:30 [id number] Zena Ramirez MD [facility] [address] [place] [address] 05/10/2010 17:06:55 05/10/2010 18:50:11 [id number] Essence Knowles, DO [facility] [address] [place] [address] 05/31/2010 18:17:55 05/31/2010 19:23:28 [id number] Essence Knowles, DO [facility] [address] [place] [address] 10/04/2010 17:25:28 10/04/2010 18:04:57 [id number] Essence Knowles, DO [facility] [address] [facility] [place] [address] 10/26/2010 15:30:56 10/26/2010 16:47:04 [id number] Nakul Boland, DO [facility] [address] [facility] [place] [address] 12/19/2010 19:34:25 12/19/2010 20:13:27 [id number] Essence Knowles, DO [facility] [address] [place] [address] 03/17/2011 14:44:01 03/17/2011 15:31:54 [id number] Essence Knowles, DO [facility] [address] [place] [address] 06/01/2011 12:28:37 06/01/2011 13:54:09 [id number] SARAH Hines [facility] [address] [place] [address] 07/18/2012 19:08:12 07/19/2012 13:17:25 [id number] Essence Knowles, DO [facility] [address] [facility] [place] [address] 05/22/2013 16:22:52 05/23/2013 10:09:02 [id number] Essence Knowles, DO [facility] [address] [facility] [place] [address] 12/15/2013 18:32:26 12/15/2013 19:40:41 [id number] Essence Knowles, DO [facility] [address] [place] [address] 01/02/2014 10:53:17 01/02/2014 15:51:25 [id number] Essence Knowles, DO [facility] [address] [place] [address] 03/19/2014 15:04:03 03/19/2014 15:32:34 [id number] [facility], ASHTYN [facility] [address] [place] [address] 05/10/2015 15:37:23 05/11/2015 11:24:05 [id number] [facility], ASHTYN [facility] [address] [facility] [place] [address] 07/13/2015 15:34:17 07/14/2015 12:42:51 [id number] Barby Rogel MD [facility] [address] [facility] [place] [address] 05/15/2016 17:34:06 05/15/2016 19:08:03 [id number] SAQIB Crow [facility] [address] [facility] [place] [address] 08/18/2016 19:13:26 08/21/2016 03:16:32 [id number] [facility] [address] [place] [address] 08/06/2017 16:20:46 08/06/2017 21:19:04 [id number] [facility] PRODUCTION ADMINISTRATIVE ASSISTANT [facility] [address] [place] [address] 02/11/2018 16:01:06 02/11/2018 21:36:59 [id number] Poonam Quinn MD [facility] [address] [place] [address] 06/06/2018 16:55:47 06/10/2018 16:39:57 Overweight 094215758 E66.3 Diet: 1800 Calories Low Glycemic Diet Exercise: Work up to 30 min 5x/week as tolerated Electrocar diogram abnormal 018598019 R94.31 LVH Intermitte nt palpitations 596994668 R00.2 once per week last few seconds fast and regular for 4 to 5 beats for last 4- 5 yearsTSH normal Essential hypertension 57357403 I10 controlled with treatment Tobacco de pendence syndrome 31559962 F17.416 [id number] Poonam Quinn MD [facility] [address] [place] [address] 06/19/2018 09:21:20 06/19/2018 10:16:22 Electrocardiogram abnormal 695498024 R94.31 LVH [id number] [facility] [address] [place] [address] 09/02/2018 16:58:51 09/03/2018 09:16:52 [id number] [facility] [address] [place] [address] 11/12/2018 15:01:58 11/12/2018 18:51:23 [id number] [facility] [address] [place] [address] 11/29/2021 17:04:20 11/30/2021 06:58:32 [id number] [facility], PRODUCTION ADMINISTRATIVE ASSISTANT [facility] [address] [place] [address] 12/15/2021 12:22:05 12/16/2021 08:34:45 [id number] Kai Davis MD [facility] [place] [address] [place] [address] 01/11/2022 16:24:26 01/11/2022 17:30:02 [id number] Kai Davis MD [facility] [place] [address] [place] [address] 02/21/2022 10:08:23 02/21/2022 14:16:00 [id number] [facility], PRODUCTION ADMINISTRATIVE ASSISTANT [facility] [address] [place] [address] 03/06/2022 17:54:38 03/07/2022 23:28:20 [id number] [facility], PRODUCTION ADMINISTRATIVE ASSISTANT [facility] [address] [place] [address] 05/11/2022 15:06:18 05/12/2022 06:02:02 Health Concerns Section Related Observation LastModified by Organization Detai ls LastModified Time None Recorded Concern Status LastModified by Organization Details LastModified Time None Recorded Advance Directives Directive N: Payers Insurance Date Sequence Insurance Name Policy Number Policy Crawley Covered Member ID Crawley Member ID Guarantor Name 08/18/2022 2 [facility] ([place]AC[place] - [place]) Sangita Umana [id number] Sangita Umana 08/08/2022 1 [facility] (MEDICARE REPLACEMENT/A DVANTAGE - HMO) Sangita Umana [id number] Sangita Umana 08/18/2022 1 [facility] - DUAL ELIGIBLE (MEDICARE REPLACEMENT/A DVANTAGE - HMO) [facility] Sangita Umana [id number] Sangita Umana 08/08/2022 1 [place] Sangita Umana [id number] Sangita Umana 08/08/2022 1 [employer] MEDICARE SOL[employer] - [employer] - MEDICARE COMPLETE (MEDICARE REPLACEMENT HMO) [id number] Sangita Grace Dong [id number] Sangita Sanjay Dong 08/08/2022 1 [facility] [place] [facility] (MEDICAID HMO) Sangita Grace Dong [id number] Sangita Grace Dong 08/08/2022 1 [facility] [place] (MEDICARE REPLACEMENT HMO) Sangita Sanjay Dong [id number] Sangita C Dong 08/08/2022 1 [facility] [place] - [place] (MEDICARE - MEDICAID REPLACEMENT HMO) Sangita Grace Dong [id number] Sangita Sanjay Dong 08/08/2022 3 [facility] (MEDICARE REPLACEMENT/A DVANTAGE - HMO) Sangita Grace Dong [id number] Sangita Sanjay Dong 08/08/2022 1 [facility] - DUAL ELIGIBLE (MEDICARE REPLACEMENT/A DVANTAGE - HMO) Sangita Umana [id number] Sangita Sanjay Dong 08/08/2022 1 [facility] (MEDICARE REPLACEMENT/A DVANTAGE - HMO) [facility] Sangita C Dong [id number] Sangita Grace Dong 08/08/2022 2 [facility] [place] [facility] (MEDICAID HMO) Sangita Grace Dong [id number] Sangita Sanjay Dong Notes Date Note Type Note Provider Name and Address Organization Details Recorded Time 06/06/2018 text/html PCM - [facility] H PI 1Reported bypatient.Notes:Saqib nieto seen [...] or near [place] [address], [place], [address], [facility] 06/06/2018 18:09:31 OBGyn Episode No OBEpisode recorded.
--- OUTSIDE RECORDS SUMMARY | 2024-10-29 16:45 | XMS_ITS | Clinical Summary ---
Author Organization [facility] Address [address] [place] [address] Care Team Providers Care Linux Systems Analyst Name Role Phone Zainab Kaiser Primary Care Provider [phone] Source Comments PLEASE NOTE, if this patient [...] RINSE MOUTH AFTER USING. 10/01/19 24 Active montelukast (SINGULAIR) 10 mg tablet [...] OR SHORTNESS OF BREATH 10/03/19 24 Active acetaminophen (TYLENOL 8 HOUR) 650 mg CR tabletIndications :DDD (degenerative disc disease), cervical Take 1 Tablet by mouth every 8 (eight) hours as needed for pain 30 Tablet 11/14/19 24 Active gabapentin (NEURONTIN) 100 mg capsuleIndication s:Osteoarthritis of thoracic spine, unspecified spinal osteoarthritis complication status,DDD (degenerative disc disease), cervical,Osteoart hritis of hip, unspecified laterality, unspecified osteoarthritis type Take 2 Capsules by mouth 3 (three) times daily NEEDED FOR SEVERE PAIN!!. 180 Capsule 1 09/18/19 25 Active metoprolol succinate XL (TOPROL-XL) 25 mg 24 hr tablet Take 1 Tablet by mouth once daily. 90 Tablet 1 10/01/19 25 Active MISCELLANEOUS MEDICAL SUPPLY MISCIndications:O steoarthritis of spine with radiculopathy, thoracic region,Lumbar spondylosis,Osteo arthritis of hip, unspecified laterality, unspecified osteoarthritis type Please dispense one single point cane. Dx: Osteoarthritis of thoracic spine, lumbar spondylosis. Duration: lifetime. 1 Each 10/03/19 25 Active amLODIPine (NORVASC) 5 mg tablet Take 5 mg by mouth once daily. Active amoxicillin-pot clavulanate (AUGMENTIN) 875-125 mg per tabletIndications :Cat bite, initial encounter Take 1 Tablet by mouth 2 (two) times daily for 10 days. 20 Tablet 10/22/19 25 025 Active predniSONE (DELTASONE) 10 mg tablet 12/14/19 025 Disconti nued(The rapy complete d/Not needed) metoprolol succinate XL (TOPROL-XL) 25 mg 24 hr tablet Take 25 mg by mouth once daily 08/21/19 24 025 Disconti nued(Reo rder (E-Cance l Not Sent)) lisinopriL 10 mg tablet Take 10 mg by mouth once daily 08/21/19 24 025 Disconti nued(The rapy complete d/Not needed) MISCELLANEOUS MEDICAL SUPPLY MISCIndications:D extroscoliosis of thoracolumbar spine,Osteoarthri tis of thoracic spine, unspecified spinal osteoarthritis complication status,Lumbar spondylosis,Osteo arthritis of hip, unspecified laterality, unspecified osteoarthritis type,DDD (degenerative disc disease), cervical,Cervical stenosis of spine Rolator walker with a seat and storage. Dx: Degenerative disc disease, cervical, and osteoarthritis of multiple joints including lumbar. Duration: lifetime 1 Each 11/09/19 24 025 Disconti nued(Reo rder (E-Cance l Not Sent)) tiZANidine (ZANAFLEX) 2 mg tabletIndications :Pain management Take 1 Tablet by mouth once daily NEEDED FOR MUSCLE SPASMS!! 30 Tablet 06/03/19 25 025 Disconti nued(The rapy complete d/Not needed) MISCELLANEOUS MEDICAL SUPPLY MISCIndications:O steoarthritis of hip, unspecified laterality, unspecified osteoarthritis type,Dextroscolio sis of thoracolumbar spine,Osteoarthri tis of thoracic spine, unspecified spinal osteoarthritis complication status,Lumbar spondylosis,DDD (degenerative disc disease), cervical,Cervical stenosis of spine Rolator walker with a seat and storage. Dx: Degenerative disc disease, cervical, and osteoarthritis of multiple joints including lumbar. Duration: lifetime. 1 Each 10/07/19 25 025 Disconti nued(The rapy complete d/Not needed) Active Problems Problem Noted Date Diagnosed Date Lumbar spondylosis 11/09/2023 Osteoarthritis of thoracic spine 11/09/2023 Primary hypertension 11/09/2023 Chronic obstructive pulmonary disease ([facility]) 11/09/2023 Chronic bilateral back pain 11/09/2023 Major depressive disorder 11/09/2023 Stage 3 chronic kidney disease ([facility]) 0 11/09/2023 ISSAC (generalized anxiety disorder) 11/09/2023 Osteoarthritis of hip 11/09/2023 DDD (degenerative disc disease), cervical 2023 Cervical stenosis of spine 11/09/2023 Encounters Date Type Department Care Team Description 10/21/2024 3:00 PM EDT Office Visit [address] [address] Karla Hazel PA-C 10/09/2024 Interim Notes [address] [address] Ismael Lemus MA 10/06/2024 11:00 AM EDT Telemedicine Visit [address] [address] Zainab Kaiser PA 10/02/2024 Interim Notes [address] [address] Zainab Kaiser PA 10/02/2024 Interim Notes [address] [address] Zainab Kaiser PA 09/17/2024 10:40 AM EDT Telemedicine Visit [address] [address] Zainab Kaiser PA from Last 3 Months Immunizations Immunization Administration Dates Next Due PNEUMOCOCCAL CONJUGATE PCV 20 (Prevnar) 06/09/19 25 TDAP 10/21/2024,06/09/2024 Social History Tobacco Use Types Packs/Day Years [...] Sign Reading Time Taken Comments Blood Pressure 132/80 10/21/2024 3:09 PM EDT Pulse 60 10/21/2024 3:09 PM EDT Temperature 36.8 C (98.2 F) 10/21/2024 3:09 PM EDT Respiratory Rate 20 10/21/2024 3:09 PM EDT Oxygen Saturation 98% 10/21/2024 3:09 PM EDT Inhaled Oxygen Concentration - - Weight 59.9 kg (132 lb) 10/21/2024 3:09 PM EDT Height 151 cm (4' 11.45 ) 10/21/2024 3:09 PM EDT Body Mass Index 26.26 10/21/2024 3:09 PM EDT Plan of Treatment Health Maintenance Due Date Last Done Comments Lipid Screening 1955 Breast Cancer Screening (Mammogram) 1997 CT Colonography 2002 Colonoscopy 2002 Colorectal Cancer Screening 2002 FIT/gFOBT 2002 Fecal DNA 2002 Flexible Sigmoidoscopy 2002 Imm-Zoster, Recombinant (1 of 2) 2007 Bone Density Screening 2022 Falls Prevention 11/08/2024 11/09/2023 Depression Monitoring 12/18/2024 09/17/2024 , 12/21/2023, 11/22/2023, Additional history exists Imm-Influenza (Season Ended) 2024 Hepatitis C Screening 01/21/2025 Postpo nicole from 1955 (Patient postponement) [id number] ( season) 2025 01/17/2021 Postponed from 12/30/2023 (Patient postponement) Tobacco Cessation Counseling (#1) 01/21/2025 Postponed from 1955 (Patient postponement) Medicare Annual Wellness Visit 10/21/2025 10/21/2024 Diabetes Screening 11/21/2026 11/22/2023 Imm-DTaP/Tdap/Td (3 - Td or Tdap) 10/21/2034 10/21/2024, 06/09/2024 Imm-Pneumococcal 50+ Completed 06/09/2024 Alcohol and Drug Screen Completed 09/18/19, 06/09/2024, 11/09/2023 Procedures Procedure Name Priority Date/Time Associated Diagnosis Comments COMPREHENSIVE METABOLIC PANEL Routine 11/22/2023 4:09 PM EDT Encounter for medication monitoring Stage 3 chronic kidney disease, unspecified whether stage 3a or 3b CKD ([facility]) from Last 3 Months or Most Recently Relevant to Health Maintenance Results * (ABNORMAL) COMPREHENSIVE METABOLIC PANEL (11/22/2023 4:09 PM EDT) GLUCOSE 82 65 - 99 mg/dL [facility] Comment: Fasting reference interval UREA NITROGEN (BUN) 27(H) 7 - 25 mg/dL [facility] CREATININE (blood) 1.57(H) 0.50 - 1.05 mg/dL [facility] EGFR 36(L) > OR = 60 mL/min/1. 73m2 [facility] BUN/CREATININE RATIO 17 6 - 22 (calc) [facility] SODIUM 138 135 - 146 mmol/L [facility] POTASSIUM 4.2 3.5 - 5.3 mmol/L [facility] CHLORIDE 102 98 - 110 mmol/L [facility] CARBON DIOXIDE 28 20 - 32 mmol/L [facility] CALCIUM 10.1 8.6 - 10.4 mg/dL [facility] PROTEIN, TOTAL 7.4 6.1 - 8.1 g/dL [facility] ALBUMIN 4.9 3.6 - 5.1 g/dL [facility] GLOBULIN 2.5 1.9 - 3.7 g/dL (calc) [facility] ALBUMIN/GLOBULI N RATIO 2.0 1.0 - 2.5 (calc) [facility] BILIRUBIN, TOTAL 0.7 0.2 - 1.2 mg/dL [facility] ALKALINE PHOSPHATASE 57 37 - 153 U/L [facility] AST 23 10 - 35 U/L [facility] ALT 18 6 - 29 U/L [facility] Blood Blood / Unknown 11/22/2023 4 :09 PM EDT 11/22/2023 4:09 PM EDT Narrative [facility] - 11/23/2023 10:52 AM EDT SPLIT 11/22/2023 FROM [id number] us Zainab [facility] - BLOOD DRAW Final Result [facility] [address] [address], [facility] [address] [place] [address] from Last 3 Months or Most Recently Relevant to Health Maintenance Insurance [facility] [place]IC[place] Care Teams Linux Systems Analyst Relationship Specialty Start Date End Date Zainab Kaiser PA [address] [place] [id number] PCP - General Primary Care 09/14/23
[2024-10-29 16:51] VITALS: PULSE 53; RESP 18; O2SAT 97
[2024-10-29 17:05] VITALS: BP 168/56; PULSE 53; RESP 18; TEMP 36.1; O2SAT 97
== END 2024-10-29 17:05 | disposition home or self-care (01) ==
LOC: HO.ED 16:42
PROVIDERS: Emergency Provider Internal Medicine
DX: M79.604 Pain in right leg (principal); M77.51 Other enthesopathy of right foot and ankle; M17.11 Unilateral primary osteoarthritis, right knee; I10 Essential (primary) hypertension; F17.210 Nicotine dependence, cigarettes, uncomplicated; F12.90 Cannabis use, unspecified, uncomplicated; Z96.641 Presence of right artificial hip joint; Z79.899 Other long term (current) drug therapy
CPT/HCPCS: 73502; 73562; 73610; 96372; 99284; J2270

== ENCOUNTER → 2024-10-29 14:10 | Outpatient (BNV) | payer OTHER, SELFPAY | PROVIDERS: Visit Provider Radiology Diagnostic Radiology | DX: M25.551 Pain in right hip (principal); M17.11 Unilateral primary osteoarthritis, right knee; M25.771 Osteophyte, right ankle | CPT/HCPCS: 73562; 73610 ==